=== PATIENT | female | born 1955 | race Caucasian/White ===

== ENCOUNTER 2019-05-14 15:43 | Inpatient (IN) | payer MEDICAID ==
[2019-05-14] VITALS (9 sets, daily range): BP systolic 140–172; BP diastolic 61–70
[~2019-05-14] VITALS: Ht 162.6 cm; Wt 220.0 kg
--- NOTE | ~2019-05-14 | HEMODYNAMI ---
PATIENT:TROY HAYWOOD MEDICAL RECORD: [id number] : 57 LOCATION:[facility] ADMISSION DATE: 05/14/19 Generatedon:05/18/201912:19 Patient name: TROY HAYWOOD Patient #: [id number] SSN: [id number] : 1955 Date of study: 05/18/2019 Page: Of Hemodynamic Procedure Report Patient Data Patient Demographics Procedure consent was obtained First Name: TROY Gender: Female Last Name: CHASTITY : 1955 Patient #: [id number] Age: 64 year(s) Race: SSN: [id number] Additional ID: [id number] Contact details [address]: [address] [place] [address] State: [place] City: [place] Zip code: [address] Past Medical History Allergies Allergen Reaction Date Comments Reported Other 05/18/2019 CODEINE,TRAMADOL,KETOROLAC(FROM allergy tORDOL)/ERTAPENEM Admission Admission Data Admission Date: 05/14/2019 Admission Time: 16:22 Arrival Date: 05/18/2019 Arrival Time: 0:00 Admit Source: Other Insurance Payor: Medicaid Room #: D.CV06 [facility] #: [id number] Height (in.): 64.17 BSA: 2.74 (m2) Height (cm.): 163 BMI: 74.9 (kg/m2) Weight (lbs.): 438.72 Weight (kg.): 199 Lab Results Lab Result Date: 05/18/2019 Lab Result Time: 0:00 Biochemistry Name Units Result Min Max BUN mg/dl 71 --(----)-* 7 18 Creatinine mg/dl 2.1 --(----)-* 0.6 1.3 eGFR ml/min 25 *-(----)-- 90 120 NONAFRICAN Troponin l ng/ml 0.62 --(----)-* 0 0.06 CBC Name Units Result Min Max Hemoglobin g/dl 7.7 *-(----)-- 13.5 17.5 Procedure Procedure Types Cath Procedure Diagnostic Procedure [facility] w/Coronaries PCI Procedure Coronary Stent Coronary Stent Initial x2 Procedure Description Procedure Date Procedure Date: 05/18/2019 Procedure Start Time: 11:00 Procedure End Time: 12:17 Procedure Staff Name Function Vargas Christie MD Performing Physician Vanessa Sanchez RT Monitor Danica Ledesma RT Monitor Unique Meadows RN Nurse Madeline Parrish RT Scrub Indication NSTEMI Procedure Data Cath Procedure Fluoroscopy Diagnostic fluoroscopy Total fluoroscopy Time: 9 time: 9 min min Diagnostic fluoroscopy Total fluoroscopy dose: dose: 1677 mGy 1677 mGy Contrast Material Contrast Material Type Amount (ml) Isovue 300 118 Entry Location Entry Primary Successful Side Size Upsize Upsize Entry Closure Succes sful Closure Location (Fr) 1 (Fr) 2 (Fr) Remarks Device Remarks Brachial Right 5 Fr Exoseal artery Estimated blood loss: 10 ml Diagnostic catheters Device Type Used For End Catheter Placement MULTIPACK Pigtail 5 Fr LV Angiography catheter DIAGNOSTIC [place] 4.5 5Fr Procedure catheter ([id number]) Procedure Complications No complications Procedure Medications Medication Administration Route Dosage 0.9% NaCl I.V. Oxygen 40 Diprivan 1% I.V. 40 mcg/kg/min (Propofol) Lidocaine 2% added to field 20 Heparin Flush Bag added to field 2 bags (1000units/500ml NS) Heparin Bolus I.V. 7000 units Hemodynamics Rest BSA: 2.74 (m2) HGB: 7.7 (g/dl) O2 Consumption: Estimated: 244.77 (ml/min) O2 Con sumption indexed: Estimated:89.33 (ml/min/m) Heart Rate: 58 (bpm) Snapshots Pre Cath Intra NCS Post Cath Vital Signs Time Heart Resp SPO2 etCO2 NIBP (mmHg) Rhythm Pain Sedation Rate (ipm) (%) (mmHg) Status Level (bpm) 10:49:54 55 16 99 0 133/74(116) SB 0 (11) 5(A) , No pain 10:54:12 51 16 100 0 134/74(102) SB 0 (11) 5(A) , No pain 10:58:30 50 16 100 0 129/73(105) SB 0 (11) 5(A) , No pain 11:03:21 56 16 100 0 132/80(91) SB 0 (11) 5(A) , No pain 11:07:37 47 16 100 0 139/76(117) SB 0 (11) 5(A) , No pain 11:11:53 47 16 100 0 128/74(103) SB 0 (11) 5(A) , No pain 11:16:52 46 16 100 0 Measuring SB 0 (11) 5(A) , No pain 11:17:06 46 16 100 0 120/71(98) SB 0 (11) 5(A) , No pain 11:21:22 45 16 100 0 130/62(83) SB 0 (11) 5(A) , No pain 11:25:38 45 16 100 0 125/71(94) SB 0 (11) 5(A) , No pain 11:29:48 44 16 100 0 115/87(103) SB 0 (11) 5(A) , No pain 11:34:48 53 19 100 0 Measuring SB 0 (11) 5(A) , No pain 11:35:00 51 13 100 0 132/71(104) SB 0 (11) 5(A) , No pain 11:39:20 55 16 100 0 133/74(90) SB 0 (11) 5(A) , No pain 11:43:36 55 16 100 0 137/81(103) SB 0 (11) 5(A) , No pain 11:47:56 52 19 100 0 139/72(109) SB 0 (11) 5(A) , No pain 11:52:16 53 18 100 0 139/73(110) SB 0 (11) 5(A) , No pain 11:56:34 56 15 100 0 136/79(107) SB 0 (11) 5(A) , No pain 12:00:52 57 16 100 0 142/73(113) SB 0 (11) 5(A) , No pain 12:05:13 58 16 100 0 141/73(116) SB 0 (11) 5(A) , No pain 12:09:30 58 16 100 0 141/80(120) SB 0 (11) 5(A) , No pain 12:13:53 57 16 100 0 142/70(96) SB 0 (11) 5(A) , No pain Medications Time Medication Route Dose Verified Delivered Reason Notes Effectiveness by by 10:54:34 0.9% NaCl I.V. kvo Vargas Calhoun used for Pratik Meadows consumer banker 10:55:20 Diprivan 1% I.V. 40mcg/kg/min Vargas Unique for sedation infusing (Propofol) Pratik Meadows upon RN arrival 10:55:20 Oxygen vent 40% FiO2 Vargas Unique used for Pratik Meadows consumer banker 11:00:12 Lidocaine 2% added 20ml vial Vargas Kaye for local to Pratik Christie MD anesthetic field 11:00:20 Heparin Flush added 2 bags Vargas Kaye used for Bag to Pratik Christie MD procedure (1000units/500ml field NS) 11:54:07 Heparin Bolus I.V. 7000 units Vargas Powella for verified Pratik Meadows anticoagulation with Dr. ALINA Christie Procedure Log Time Note 10:01:48 Informed consent obtained and on chart 10:02:05 Admit Source: Other 10:02:22 Diagnostic Cath Status : Urgent 10:03:07 ACC Patient presents with Non-STEMI CCS Anginal Class 4--Inability to carry out any physical activity w/o angina. Angina may occur at rest. 10:03:14 ACCPatient has been prescribed/administered the following anti-anginal medication within the last 2 weeks: None 10:03:27 Indication : NSTEMI 10:03:46 Procedure Status Urgent Heart Cath (IP). 10:03:49 Vanessa Sanchez RT(R) sent for patient. Start room use. 10:03:52 Time tracking: Regular hours (M-F 7:00 - 5:00) 10:04:05 Plan of Care:Hemodynamics will remain stable., Cardiac rhythm will remain stable., Comfort level will be maintained., Respiratory function will remain adequate., Patient/ family verbilizes understanding of procedure., Procedure tolerated without complication., Recovers from procedure without complications.. 10:13:48 Lab Result : eGFR NONAFRICAN 25 ml/min 10::48 Lab Result : Troponin l 0.62 ng/ml 10::48 Lab Result : Creatinine 2.1 mg/dl 10::48 Lab Result : BUN 71 mg/dl 10:13:48 Lab Result : Hemoglobin 7.7 g/dl 10:14:12 Arrival Date: 05/18/2019 12:00:00 AM 10:14:31 Insurance Payor : Medicaid 10:14:37 Patient Height : 64.17 inches 10:14:43 Patient Weight : 438.72 lbs 10:18:20 Risk of Mortality: 2.4 10:18:27 Risk of blood transfusion: 57.7 10:18:32 Risk of HILARY: 26.6 10:21:42 Patient received from CVICU to CCL 1 On ventilator. Tansferred to table in Supine position. 10:32:47 Pre-procedure instructions explained to patient. 10:32:47 Pre-op teaching completed and patient verbalized understanding. 10:32:53 Family unavailable. 10:32:54 Patient NPO since Midnight. 10:33:00 Is patient on blood thinner?Yes 10:33:03 ACC The patient was administered the following blood thiners within the last 24 hours: ACCPlavix 10:33:17 PRIOR TO PREPPING AND DRAPING RIGHT GROIN AREA, PATIENT HAS MULTIPLE SKIN TEARS. 10:33:33 due to patient on vent... answers are unknown 10:33:36 Patient diabetic? Unknown. 10:33:40 Patient not . Patient is over age 55. 10:33:47 Snore? Unknown 10:33:48 Sleep apnea? Unknown 10:33:49 Deviated septum? Unknown 10:33:50 Opens mouth fully? Unknown 10:33:52 Sticks out tongue? Unknown 10:33:55 Airway obstruction? Unknown ? 10:33:57 Dentures? No ? 10:34:04 Pre procedure: right dorsailis pedis pulse Doppler 10:34:18 IV patent on arrival in Rt subclavian with 0.9% NaCl at KVO. 10:34:22 Lab results completed and on chart. 10:34:26 Right groin area was prepped with chlora-prep and draped in sterile fashion 10:34:27 Alarms reviewed by R. N. 10:34:27 Sharps counted by scrub and verified by R.N. 10:35:24 Patient allergic to Other allergyCODEINE,TRAMADOL,KETOROLAC(FROM tORDOL)/ERTAPENEM 10:35:29 Warm blankets applied, and rachel hugger turned on for patient comfort. 10:35:31 Correct patient and procedure confirmed by team. 10:35:44 Is the patient allergic to Iodine/contrast media? Unknown. 10:35:47 Was the patient premedicated? Yes 10:36:05 ----Pre-sedation anethsthesia assessment.---- 10:36:17 Previous problem with sedation/anesthesia? Unknown DUE TO PT ON VENT 10:37:06 Use device set Femoral Dx 10:37:08 ACIST Syringe (06402) opened to sterile field. 10:37:09 Bag Decanter (2002S) opened to sterile field. 10:37:10 Medline Cath Pack ([id number]) opened to sterile field. 10:37:12 ACIST Hand Control (24197) opened to sterile field. 10:37:12 ACIST Manifold (12985) opened to sterile field. 10:37:13 DIAGNOSTIC Multipack 5Fr catheter set (WQ5874) opened to sterile field. 10:37:14 Tegaderm 4 x 4 (1626W) opened to sterile field. 10:37:16 SHEATH 5FR [place] (YYY980) opened to sterile field. 10:37:17 EMERALD Guide Wire (963-857) opened to sterile field. 10:48:40 ECG and BP/O2 sat monitors applied to patient. 10:48:41 Vital chart was started 10:48:42 Baseline sample Acquired. 10:48:49 Rhythm: sinus rhythm 10:48:52 Full Disclosure recording started 10:48:52 - 10:49:00 H&P Date Dictated: 05/18/2019 Within 30 days and on chart.. 10:49:15 Unable to provide pre-op teaching due to educational barrier. PT ON [place] T 10:49:47 Physician arrived 10:50:11 --------ALL STOP TIME OUT------ 10:50:13 Final Timeout: patient, procedure, and site verified with staff and physician. All members of the team are in agreement. 10:50:16 Right groin site verified by team. 10:50:24 Fire Safety Assessment: A--An alcohol-based skin anteseptic being used preoperatively., C--Open oxygen or nitrous oxide is being used., D--An ESU, laser, or fiber-optic light is being used. 10:52:24 Physical assessment completed. ASA score P 4 - A patient with severe systemic disease that is a constant threat to life as per Vargas Christie MD. 10:52:32 4) 15-29 [place]ley reduced kidney function. 10:52:40 Maximum allowable contrast dose (3.7 X eGFR X 0.75)69 ml. 10:52:50 Sedation plan: IV Moderate Sedation Medication:Versed, Fentanyl 10:54:03 Zero performed for pressure channel P1 10:54:34 0.9% NaCl kvo I.V. was administered by Unique Meadows RN; used for procedure; Verbal order read back and verified. 10:55:20 Oxygen 40% FiO2 vent was administered by Unique Meadows RN; used for procedure; Verbal order read back and verified. 10:55:20 Diprivan 1% (Propofol) 40mcg/kg/min I.V. was administered by Unique Meadows RN; for sedation; infusing upon arrival Verbal order read back and verified. 11:00:08 Procedure started. 11:00:12 Lidocaine 2% 20ml vial added to field was administered by Vargas Christie MD; for local anesthetic; Verbal order read back and verified. 11:00:20 Heparin Flush Bag (1000units/500ml NS) 2 bags added to field was administered by Vargas Christie MD; used for procedure; Verbal order read back and verified. 11:00:25 Local anesthetic to right femoral artery with Lidocaine 2% by Vargas Christie MD.INITIAL ACCESS ONLY 11:00:54 NEEDLE Merit 18G 9cm Percutaneous Entry ([id number]) opened to sterile field. 11:03:42 Pt arrived to CL intubated and sedated. Pt sedated w/ Propofol drip 40mcg/kg/min and vent @ 40% FiO2. skin tear noted on left FA and groin area. CVL drsg saturated w/blood and oozing. Drsg changed by CL nurse per hospital policy. All VSS and no s/s distress noted. Will continue to monitor. 11:08:38 UNABLE TO CANULATE THE RIGHT FEMERAL ARTERY. 11:09:07 Right Brachial site verified by team. 11:09:27 Right Brachial area was prepped with chlora-prep and draped in sterile fashion 11:30:51 Local anesthetic to right brachial artery with Lidocaine 2% by Vargas Christie MD.ADDITIONAL ACCESS 11:43:50 A 5 Fr sheath was inserted into the Right Brachial artery 11:44:01 A MULTIPACK Pigtail 5 Fr catheter was advanced over the wire and used for LV Angiography. 11:45:40 LV gram done using MURO 11:46:32 EF : 50 % 11:46:37 Injector settings: Ml/sec: 10, Volume: 20, 11:46:42 Catheter exchanged over wire. 11:47:06 TUBING High Pressure Extension Tubing (Grouply) ([id number]) opened to sterile field. 11:47:49 A DIAGNOSTIC [place] 4.5 5Fr catheter ([id number]) was advanced over the wire and used for Procedure. 11:48:29 LCA angiography performed. 11:49:40 INFLATOR Merit BasixCompak (CT4305) opened to sterile field. 11:50:01 RCA angiography performed. 11:50:20 CHOICE PT Extra Support 182cm wire ([id number]) opened to sterile field. 11:50:36 Catheter exchanged over wire. 11:52:13 GUIDE 5FR EBU 3.5 catheter ([id number]) opened to sterile field. 11:52:32 GUIDE 5FR AR2.0 catheter (QP5VG27) opened to sterile field. 11:53:06 5 Fr EBU3.5 guide catheter was inserted over the wire 11:53:48 Pre PCI Site: [place] mLAD has 90% stenosis. 11:54:07 Heparin Bolus 7000 units I.V. was administered by Unique Meadows RN; for anticoagulation; verified with Dr. Christie Verbal order read back and verified. 11:55:14 The WILLY RX 2.5 x 18 stent ([id number]) was advanced then removed because of failure to cross lesion 11:56:16 Inflate balloon Inflation number: 1 A EUPHORA 2.5 x 15 Balloon ([id number]) was prepped and advanced across the Mid LAD , then inflated to 15 [place] for 0:10 (min:sec) . 11:56:42 Inflation number: 2 The EUPHORA 2.5 x 15 Balloon ([id number]) was reinflated across the Mid LAD , to 15 [place] for 0:00 (min:sec) . 11:56:56 Balloon removed over the wire. 11:58:28 Place stent Inflation Number: 3 A WILLY RX 2.5 x 18 stent ([id number]) was prepped and advanced across the Mid LAD . The stent was deployed at 15 [place]ALL[place] for 0:10 (min:sec) . 11:58:35 Stent catheter was removed intact over wire. 11:59:13 Wire removed. 11:59:14 Guide catheter removed. 11:59:43 5 Fr AR2 guide catheter was inserted over the wire 12:00:06 CHOICE PT wire advanced. 12:00:56 Pre PCI Site: [place] mRCA has 90% stenosis. 12:03:39 Wire advanced across lesion. 12:05:02 Inflation number: 1 The EUPHORA 2.5 x 15 Balloon ([id number]) was reinflated across the Mid RCA , to 13 [place] for 0:10 (min:sec) . 12:05:19 Balloon removed over the wire. 12:06:32 Place stent Inflation Number: 2 A WILLY RX 2.5 x 15 stent ([id number]) was prepped and advanced across the Mid RCA . The stent was deployed at 17 [place] for 0:10 (min:sec) . 12:06:49 Stent catheter was removed intact over wire. 12:06:50 Wire removed. 12:06:52 Guide catheter removed. 12:07:04 ACT drawn and resulted at 201 seconds. (normal therapeutic range 180-24 0 seconds). 12:07:07 EXOSEAL 5Fr (EX500) opened to sterile field. 12:07:35 Sheath removed intact; hemostasis achieved with Exoseal to the Right Brachial artery. 12:07:45 Procedure ended.(Physican Out) 12:09:08 Fluoroscopy time 09.00 minutes. 12:09:16 Fluoroscopy dose: 1677 mGy 12:09:56 Contrast amount:Isovue 300 118ml. 12:10:17 Dose Area Product 28554 mGy/cm. 12:10:56 Flurop Dose total: 1677 12:11:14 Maximum allowable dose exceeded? Yes. 12:11:16 Sharps counted by scrub and verified by R.N. 12:11:20 Insertion/operative site no bleeding no hematoma. 12:11:43 Post-op/insertion site Right Brachial artery dressed using a 4 x 4 and Tegaderm. 12:12:14 Post right brachial artery:stable 12:12:21 Post Procedure Pulses reassessed and unchanged 12:12:29 Post-procedure physical assessment completed. ASA score P 4 - A patient with severe systemic disease that is a constant threat to life as per Vargas Christie MD. 12:12:36 Post procedure rhythm: unchanged. 12:12:41 Estimated blood loss: 10 ml 12:12:45 Post procedure instruction explained to patient.Patient verbalizes understanding. 12:12:47 Patient needs reinforcement of post procedure teaching. 12:13:41 Procedure type changed to Cath procedure, Diagnostic procedure, C, C w/Coronaries, PCI procedure, Coronary Stent, Coronary Stent Initial x2 12:13:56 Procedure and supply charges have been captured, reviewed, submitted an d are correct. 12:16:50 Procedure Complication : No complications 12:16:56 Vital chart was stopped 12:17:00 [facility] Findings: MVD- PCI performed (see procedure note) 12:17:03 Operative report dictated upon procedure completion. 12:17:03 See physician's report for complete and final results. 12:17:07 Report given to CVICU. 12:17:11 Patient transfered to CVICU with Bed. 12:17:15 Procedure ended. 12:17:15 Full Disclosure recording stopped 12:17:26 ACC-PCI Only Patient was given prescriptions, or instructed by Vargas Christie MD to start/continue the following medications upon discharge: Plavix 12:17:27 End room use (Document Last) Intervention Summary Intervention Notes Time ActionType Lesion and Equipment Used Action# Pressure Duration Attributes 11:55:14 Discard WILLY RX 2.5 x Stent 18 stent ([id number]) 11:56:16 Inflate Mid LAD EUPHORA 2.5 x 1 15 00:10 balloon 15 Balloon ([id number]) 11:56:42 Reinflate Mid LAD EUPHORA 2.5 x 2 15 00:00 balloon 15 Balloon ([id number]) 11:58:28 Place stent Mid LAD WILLY RX 2.5 x 3 15 00:10 18 stent ([id number]) 12:05:02 Reinflate Mid RCA EUPHORA 2.5 x 1 13 00:10 balloon 15 Balloon ([id number]) 12:06:32 Place stent Mid RCA WILLY RX 2.5 x 2 17 00:10 15 stent ([id number]) Device Usage Item Name Manufacture Quantity Catalog Number Hospital Part Current M inimal Lot# / Charge Number Stock Stock Serial# Code ACIST Syringe Acist 1 22614 785144 360220 332922 2 0 (03535) Medical Systems Inc Bag Decanter Microtek 1 656910 89982 165473 5 () Medical Inc. Medline Cath Medline 1 [id number] 072727 52496 888230 5 Pack ([id number]) ACIST Hand Acist 1 90567 857932 814705 292972 5 Control Medical (92132) Systems Inc ACIST Manifold Acist 1 85408 027079 046571 701236 5 (65247) Medical Systems Inc DIAGNOSTIC Cardinal 1 SY4962 856437 81173 931850 3 0 Multipack 5Fr Health catheter set (KK0563) Tegaderm 4 x 4 3M 1 1626W 871326 098160 883998 5 (1626W) SHEATH 5FR Terumo 1 USX889 138248 241931 769350 5 [place] (EZT823) EMERALD Guide Cardinal 1 502-455 563246 883712 677578 5 Wire (502-455) Health NEEDLE Merit Merit 1 [id number] 810677 193879 656523 5 18G 9cm Medical Percutaneous Entry ([id number]) MULTIPACK Cardinal 1 473905 5 Pigtail 5 Fr Health catheter TUBING High Merit 1 [id number] 719326 40077 157606 1 0 Pressure Medical Extension Tubing (Monet) (XR4158I) DIAGNOSTIC Terumo 1 40-0352 199223 405849 540619 5 [place] 4.5 5Fr catheter (896296) INFLATOR Merit Merit 1 GU3053 279290 794636 897884 1 5 [place] (ER6483) CHOICE PT [place] 1 [id number] 019101 064658 184748 5 Extra Support Scientific 182cm wire ([id number]) GUIDE 5FR EBU Medtronic 1 [id number] 540818 050143 655041 1 3.5 catheter (HN3TPM35) GUIDE 5FR Medtronic 1 HE3PL88 983163 530921 356207 1 AR2.0 catheter (QV9CT08) WILLY RX 2.5 x Medtronic 1 [id number] 385120 9576375 734581 5 [id number] 18 stent ([id number]) EUPHORA 2.5 x Medtronic 1 [id number] 642704 984539 411901 5 [id number] 15 Balloon ([id number]) WILLY RX 2.5 x Medtronic 1 [id number] 114271 3872504 977042 5 [id number] 15 stent ([id number]) EXOSEAL 5Fr Cardinal 1 EX500 415938 853168 048238 1 0 (EX500) Health Signature Audit [place] Stage Time Signature Unsigned Intra-Procedure 05/18/2019 Danica 12:18:01 PM Baltazar RT(R) (CV) Intra-Procedure 05/18/2019 Unique Meadows 12:18:32 PM RN Intra-Procedure 05/18/2019 Vargas Christie 12:19:36 PM [facility] [address] [place] [address]
[2019-05-14 18:01] LABS: CKMB 15.9 U/L (0.0-3.6); CREATINE KINASE 248 UL (21-215)
[2019-05-14 18:05] LABS: TROPONIN-I 2.693 ng/mL (0.000-0.060)
--- NOTE | 2019-05-14 19:00 | NUR ---
REPORT RECEIVED. RECIEVED PATIENT IN BED SEDATED/ INTUBATED. ETT INTACT/ SECURE/PATENT CONNECTED TO MECHANICAL VENT WITH SETTINGS ORDERED. NGT INTACT/SECURE/PATENT WITH TUBE FEEDINGS INFUSING PER ORDER. HOB UP 30 DEGREES. ASSESSMENT COMPLETED PER FLOW SHEET WITH NO ACUTE DISTRESS OBSERVED. MONITORS CONNECTED TO PATIENT WITH ALARMS SET. VSS
--- NOTE | 2019-05-14 20:00 | NUR ---
UNABLE TO COMPLETED SRS DUE TO PATIENT SEDATED/INTUBATED.
--- NOTE | 2019-05-14 20:00 | NUR ---
RECEIVED PATIENT TO ROOM CV06 FROM ED VIA STRETCHER ACCOMPANIED BY HOSP STAFF. SEDATED/INTUBATED. ETT INTACT/SECURE PATENT AND CONNECTED TO [facility] VENT AT ORDERED SETTINGS. HOB UP 30DEGREES. ASSESSMENT COMPLETED AT THIS TIME WITH NO ACUTE DISTRESS OBSERVED. MONITORS CONNECTED TO PATIENT WITH ALARMS SET. VSS.
--- NOTE | 2019-05-14 20:20 | NUR ---
SPOKE WITH DR. MILLER, UPDATED ON PATIENT NEW ORDERS RECEIVED.
--- NOTE | 2019-05-14 21:00 | NUR ---
FAMILY AT BEDSIDE, UPDATE GIVEN.
--- NOTE | 2019-05-14 21:40 | NUR ---
SPOKE WITH DR. ARROYO. NEW ORDERS RECEIVED
--- NOTE | 2019-05-14 23:00 | NUR ---
REASSESSSMENT COMPLETED PER FLOW SHEET WITH NO ACUTE DISTRESS OBSERVED. VSS
[2019-05-15] VITALS (23 sets, daily range): BP systolic 126–169; BP diastolic 58–96; Ht 162.6 cm; Wt 220.0 kg
[2019-05-15 00:41] LABS: CREATINE KINASE 198 UL (21-215)
[2019-05-15 00:48] LABS: TROPONIN-I 2.663 ng/mL (0.000-0.060)
--- NOTE | 2019-05-15 01:00 | NUR ---
VSS. NO ACUTE DISTRESS OBSERVED
--- NOTE | 2019-05-15 03:00 | NUR ---
REASSESSMENT COMPLETED PER FLOW SHEET WITH NO ACUTE DISTRESS OBSERVED. VSS
--- NOTE | 2019-05-15 05:00 | NUR ---
GRANDDAUGHTER SEVEN AT BEDSIDE, UPDATE GIVE. VSS
[2019-05-15 05:01] LABS: APPEARANCE CLOUDY (CLEAR); BACTERIA MODERATE /hpf (NEGATIVE); BILIRUBIN NEGATIVE (NEGATIVE); COLOR YELLOW (YELLOW); EPITHELIAL CELLS NSEEN /hpf (0-5); GLUCOSE NEGATIVE (NEGATIVE); KETONE NEGATIVE (NEGATIVE); NITRITE NEGATIVE (NEGATIVE); PROTEIN 1+ mg/dL (NEGATIVE); UROBILINOGEN NORMAL (NORMAL); WHITE CELLS - URINE 25-50 /hpf (NEGATIVE)
[2019-05-15 05:52] LABS: BASOPHILS 0.1 % (0-2); EOSINOPHILS 0 % (0-7); HEMATOCRIT 34.2 % (36.0-48.0); HEMOGLOBIN 9.9 g/dL (12-16); IMMATURE GRANULOCYTES 0.7 % (0-5); LYMPHOCYTES 9.4 % (15-50); MCH 24.3 pg (26.0-34.0); MCHC 28.9 g/dL (31.0-37.0); MEAN PLATELET VOLUME 10.1 fL (7.4-10.4); MONOCYTES 3.7 % (2-11); NEUTROPHILS 86.1 % (40-80); PLATELET COUNT 246 10x3/uL (130-400); RBC 4.07 10x6/uL (4.00-5.40); RDW 17.6 % (11.5-14.5); WBC 8.3 10x3/uL (4.8-10.8)
[2019-05-15 06:10] LABS: APTT 62.1 SECONDS (22.8-39.4); INR 2.17 (0.85-1.17); PROTIME 23.5 SECONDS (11.6-15.0)
[2019-05-15 06:28] LABS: ALBUMIN 3.1 g/dL (3.4-5.0); ALKALINE PHOSPHATASE 106 U/L (46-116); ALT (SGPT) 11 U/L (10-68); BILIRUBIN - TOTAL 0.37 mg/dL (0.2-1.3); CALC OSMOLALITY 283 mosm/kg (275-300); CHLORIDE - SERUM 105 mmol/L (98-107); CKMB 14.1 U/L (0.0-3.6); CREATINE KINASE 173 UL (21-215); CREATININE - SERUM 2.2 mg/dL (0.6-1.3); GLUCOSE 111 mg/dL (74-106); MAGNESIUM - SERUM 2.1 mg/dL (1.8-2.4); PHOSPHOROUS 4.7 mg/dL (2.5-4.9); POTASSIUM - SERUM 5.5 mmol/L (3.5-5.1); PRO BNP 6905 pg/mL (0-125); PROTEIN - SERUM 7.3 g/dL (6.4-8.2); SODIUM 138 mmol/L (136-145); THYROID STIMULATING HORMONE 0.45 uIU/mL (0.36-3.74); UREA NITROGEN 33 mg/dL (7-18); eGFR NON AFRICAN AMERICAN 24 mL/min (90-120)
[2019-05-15 06:34] LABS: TROPONIN-I 2.949 ng/mL (0.000-0.060)
--- NOTE | 2019-05-15 07:00 | NUR ---
SHIFT ASSESSMENT COMPLETED, PT CARE ASSUMED, MONITORS ON AND WORKING, VITALS STABLE. PT SEDATED ON VENTILATOR, VENT SETTINGS NOTED. SEE FLOW SHEET FOR FURTHER DETAILS. WILL CONTINUE TO OBSERVE.
--- NOTE | 2019-05-15 09:00 | NUR ---
PT TURNED AND REPOSITIONED FOR COMFORT, MONITORS ON AND WORKING, VITALS STABLE, WILL CONTINUE TO OBSERVE.
--- NOTE | 2019-05-15 11:00 | NUR ---
MONITORS ON AND WORKING, VITALS STABLE. ETT ADVANCED TO 24CM VIA RT AND MD, VENT SETTINGS NOTED. NO SIGNGS/SYMPTOMS OF PAIN OR DISTRESS AT THIS TIME, SEE FLOW SHEET FOR FURTHER DETIALS. WILL CONTINUE TO OBSERVE.
[2019-05-15 11:48] LABS: CKMB 10.4 U/L (0.0-3.6); CREATINE KINASE 131 UL (21-215)
--- NOTE | 2019-05-15 13:00 | NUR ---
ORAL CARE DONE AT THIS TIME, SPOKE WITH FAMILY MEMBER, UPDATE PROVIDED, MONITORS ON AND WORKING, VITALS STABLE. WILL CONTINUE TO OBSERVE.
[2019-05-15 13:55] LABS: ANION GAP 17.3 mmol/L (8-16); CALCIUM 9.1 mg/dL (8.5-10.1); CARBON DIOXIDE 19.1 mmol/L (21.0-32.0); CREATININE - SERUM 2.2 mg/dL (0.6-1.3); POTASSIUM - SERUM 5.4 mmol/L (3.5-5.1)
--- NOTE | 2019-05-15 15:00 | NUR ---
PULMOCARE TF STARTED. MONITORS ON AND WORKING, VITALS STABLE, SEE FLOW SHEET FOR FURTHER DETAILS. WILL CONTINUE TO OBSERVE.
--- NOTE | 2019-05-15 17:00 | NUR ---
NO CHANGES, PT TOLERATING TF SO FAR, MONITORS ON AND WORKING VITALS STABLE, WILL CONTINUE TO OBSERVE.
--- NOTE | 2019-05-15 19:00 | NUR ---
SHIFT ASSESSMENT COMPLETED FOR 05/15/19 @1900 ENTERED UNDER WRONG DATE (05/14/19)
--- NOTE | 2019-05-15 21:00 | NUR ---
RESTING WITH EYES CLOSED, SEDATED. OPENS EYES TO VERBAL STIMULI. FAMILY AT BEDSIDE. UPDATE GIVEN.
--- NOTE | 2019-05-15 22:35 | NUR ---
SPOKE WITH PATIENTS DAUGHTER CHEPE SUN. UPDATED ON PATIENT. VERBAL CONSENT OBTAINED VIA PHONE X 2 RNS FOR LHC AND BLOOD PRODUCTS
--- NOTE | 2019-05-15 23:00 | NUR ---
RESTING WITH EYES CLOSED/ SEDATED. ROUSES TO VERBAL STIMULI. VSS
[2019-05-16] VITALS (22 sets, daily range): BP systolic 103–155; BP diastolic 45–75
--- NOTE | 2019-05-16 03:00 | NUR ---
PATIENT RESTING WITH EYES CLOSED, SEDATED. OPENS EYES TO VERBAL STIMULI. VSS
--- NOTE | 2019-05-16 05:00 | NUR ---
ATTEMPTED SEDATION VACATION. PATIENT ALERT/BITING TUBE/COUGHTING. SEDATION RESTARTED AT PREVIOUS RATE. PATIENT CALMED. VSS.
[2019-05-16 06:19] LABS: INR 1.77 (0.85-1.17)
[2019-05-16 06:26] LABS: HEMATOCRIT 29.9 % (36.0-48.0); HEMOGLOBIN 8.9 g/dL (12-16); MCH 24.1 pg (26.0-34.0); MCHC 29.8 g/dL (31.0-37.0); MEAN PLATELET VOLUME 10.6 fL (7.4-10.4); PLATELET COUNT 269 10x3/uL (130-400); RBC 3.69 10x6/uL (4.00-5.40); RDW 17.6 % (11.5-14.5); WBC 6.6 10x3/uL (4.8-10.8)
[2019-05-16 06:30] LABS: ALBUMIN 2.7 g/dL (3.4-5.0); ANION GAP 13.3 mmol/L (8-16); BILIRUBIN - TOTAL 0.36 mg/dL (0.2-1.3); CALCIUM 8.8 mg/dL (8.5-10.1); CARBON DIOXIDE 23.8 mmol/L (21.0-32.0); CREATININE - SERUM 2.3 mg/dL (0.6-1.3); MAGNESIUM - SERUM 2.3 mg/dL (1.8-2.4); PHOSPHOROUS 4.2 mg/dL (2.5-4.9); POTASSIUM - SERUM 5.1 mmol/L (3.5-5.1); PROTEIN - SERUM 6.7 g/dL (6.4-8.2)
--- NOTE | 2019-05-16 07:10 | NUR ---
SHIFT REPORT RECEIVED. PT INTUBATED AND SEDATED. ETT SIZE 7.5 24 AT THE LIP LINE RIGHT. PIV ON R-HAND AND LEFT CHEST. PROPOFOL INFUSING AT 35MCG/KG/MIN, AND NS AT 30ML/HR. NGT TO RIGHT NARE WITH PULMOCARE AT 45CC/HR WITH 125ML H2O FLUSH Q 4HR. BALLARD IN PLACE WITH CLOUDY YELLOW URINE NOTED. DRESSING NOTED ON RIGHT FOREARM. WRIST RESTRAINTS IN PLACE. COMPLETE SHIFT ASSESSMENT CHARTED IN FLOWSHEET. SAFETY MEASURES IN PLACE. WILL CONTINUE TO MONITOR.
[2019-05-16 08:20] LABS: HYPOCHROMASIA 1+; LYMPHOCYTES 6 % (15-50); MONOCYTES 3 % (2-11); NEUTROPHILS 91 % (40-80); PLATELET ESTIMATE NORMAL
[2019-05-16 08:21] LABS: MICROCYTOSIS 1+
--- NOTE | 2019-05-16 09:07 | NUR ---
AM MEDS GIVEN THROUGH NGT. REPOSITIONED FOR COMFORT. WILL CONTINUE TO MONITOR.
[2019-05-16] MEDS ORDERED: PACERONE200 MG PO (09:16)
[2019-05-16] MEDS ORDERED: COUMADIN7.5 MG PO (09:17)
[2019-05-16] MEDS ORDERED: AUGMENTIN 875-11 TAB PO (09:17)
[2019-05-16] MEDS ORDERED: NEURONTIN 300300 MG PO (09:20)
[2019-05-16] MEDS ORDERED: LASIX40 MG PO (09:21)
[2019-05-16] MEDS ORDERED: MELATONIN5 M3 PO (09:22)
[2019-05-16] MEDS ORDERED: ROBAXIN500 MG PO (09:25)
[2019-05-16] MEDS ORDERED: RELAFEN750 MG PO (09:25)
[2019-05-16] MEDS ORDERED: NAPROSYN500 MG PO (09:26)
[2019-05-16] MEDS ORDERED: PROCARDIA XL30 MG PO (09:28)
[2019-05-16] MEDS ORDERED: HYDROCODON-ACE1 EAC7 PO (09:29)
[2019-05-16] MEDS ORDERED: OMEPRAZOLE40 MG PO (09:29)
[2019-05-16] MEDS ORDERED: ALBUTEROL2.5 MG/3 M INH (09:31)
[2019-05-16] MEDS ORDERED: ALTACE10 MG PO (09:32)
[2019-05-16] MEDS ORDERED: ZOCOR40 MG PO (09:33)
[2019-05-16] MEDS ORDERED: SYMBICORT 16010.2 GM INH (09:35)
--- NOTE | 2019-05-16 09:56 | NUR ---
Heel protectors applied to both feet.
--- NOTE | 2019-05-16 11:15 | NUR ---
CALL RECEIVED FROM CHEPE COTA PT'S DAUGHTER. [place] VIRIFIED "[address]." DR. PINEDA ON UNIT. DR. PINEDA SPOKE WITH DAUGHTER OVER THE PHONE.
--- NOTE | 2019-05-16 13:30 | NUR ---
DAUGHTERS AT BEDSIDE. UPDATE PROVIDED. NO FURTHER NEEDS AT THIS TIME. WILL CONTINUE TO MONITOR.
--- NOTE | 2019-05-16 13:47 | NUR ---
CONSENT FOR CENTRALINE PLACEMENT RECEIVED FROM CHEPE SUN VIA TELEPHONE. CONSENT FORM PLACED IN CHART.
--- NOTE | 2019-05-16 14:00 | NUR ---
DAUGHTERS AT BEDSIDE AT THIS TIME. INFORMED THEM THAT PT WAS GOING TO GET A CENTRAL LINE PLACED. UPDATE GIVEN. WILL CONTINUE TO MONITOR.
--- NOTE | 2019-05-16 14:57 | NUR ---
SPOKE WITH DR. HANNA REGARDING FLUIDS. SINCE PT WAS ALREADY ON 30ML/HR OF NS, SHE DECIDED NOT TO ADD MORE FLUID AT THIS TIME.
--- NOTE | 2019-05-16 17:04 | NUR ---
BLEEDING NOTED AT CVL SITE. PRESSURE APPLIED FOR TEN MINUTES. 4X4 GAUZE APPLIED TO AREA FOR PRESSURE. WILL CONTINUE TO MONITOR SITE.
--- NOTE | 2019-05-16 18:00 | NUR ---
SUBCUTANEOUS ENPHYSEMA HAS MOVED UP TO NECK AND LEFT SIDE OF FACE. PT REPORTS DISCOMFORT DUE BUT DOES NOT REPORT SOB AT THIS TIME. PT HAS BEEN COUGHING FREQUENTLY THIS AFTERNOON. NO SPUTUM NOTED. CT ON LEFT SIDE CONTINUE TO WATER SEAL. WILL CONTINUE TO MONITOR.
--- NOTE | 2019-05-16 19:00 | NUR ---
REPORT RECEIVED CARE ASSUMED. ASSESMENT DONE SEE FLOW SHEET. VSS. FRUIT HARVEST MACHINE OPERATOR NOTIFIED ABOUT BERIATRIC BED ORDER 05/15/19. WILL CONTINUE TO MONITOR.
--- NOTE | 2019-05-16 19:15 | NUR ---
CENTRAL LINE DRESSING REINFORCED. WILL CONTINUE TO MONITOR.
--- NOTE | 2019-05-16 21:00 | NUR ---
MEDS GIVEN PER MAR. COMPLETE BED BATH GIVEN. COMPLETE LINEN CHANGE. VSS WILL CONTINUE TO MONITOR.
--- NOTE | 2019-05-16 23:00 | NUR ---
REASSESSMENT DONE SEE FLOW SHEET VSS BERIATRIC BED IN PLACE
[2019-05-17] VITALS (39 sets, daily range): BP systolic 91–127; BP diastolic 39–506
--- NOTE | 2019-05-17 03:00 | NUR ---
0100 PT IN BED RESTING. SCD APPLIED. VSS. 0300 REASSESSMENT DONE SEE FLOW SHEET VSS
--- NOTE | 2019-05-17 05:00 | NUR ---
CENTRAL LINE DRESSING REINFORCED. 2XSAND BAGS IN PLACE. WILL CONTINUE TO MONITOR.
[2019-05-17 05:09] LABS: BASOPHILS 0 % (0-2); EOSINOPHILS 0 % (0-7); HEMATOCRIT 27.3 % (36.0-48.0); HEMOGLOBIN 8.2 g/dL (12-16); IMMATURE GRANULOCYTES 0.2 % (0-5); MCV 79.8 fL (80.0-100.0); MEAN PLATELET VOLUME 10.6 fL (7.4-10.4); MONOCYTES 4.9 % (2-11); NEUTROPHILS 89.9 % (40-80); PLATELET COUNT 268 10x3/uL (130-400); RBC 3.42 10x6/uL (4.00-5.40); RDW 17.7 % (11.5-14.5)
[2019-05-17 05:24] LABS: WBC 9.2 10x3/uL (4.8-10.8)
[2019-05-17 05:49] LABS: INR 1.32 (0.85-1.17); PROTIME 15.9 SECONDS (11.6-15.0)
[2019-05-17 05:59] LABS: ALBUMIN 2.5 g/dL (3.4-5.0); ANION GAP 13.5 mmol/L (8-16); BILIRUBIN - TOTAL 0.23 mg/dL (0.2-1.3); CALCIUM 8.4 mg/dL (8.5-10.1); CARBON DIOXIDE 24.6 mmol/L (21.0-32.0); CREATININE - SERUM 2.2 mg/dL (0.6-1.3); MAGNESIUM - SERUM 2.3 mg/dL (1.8-2.4); PHOSPHOROUS 4.4 mg/dL (2.5-4.9); POTASSIUM - SERUM 5.1 mmol/L (3.5-5.1)
--- NOTE | 2019-05-17 06:45 | NUR ---
DR CHAVEZ CALLED. FIBRILLIN APPLIED TO CENTRAL LINE. 4X4 IN PL[address]. SAND BAG APPLIED.
--- NOTE | 2019-05-17 07:56 | NUR ---
DR HANNA AT BEDSIDE. UPDATE GIVEN. ORDERS GIVEN.
[2019-05-17 08:48] LABS: TROPONIN-I 0.705 ng/mL (0.000-0.060)
--- NOTE | 2019-05-17 09:30 | NUR ---
FAMILY AT BEDSIDE. UPDATE GIVEN.
--- NOTE | 2019-05-17 11:09 | NUR ---
SEE ADL PERFORMED. REASSESSMENT COMPLETED. WILL CONTINUE TO MONITOR
[2019-05-17 13:50] LABS: BASOPHILS 0 % (0-2); EOSINOPHILS 0 % (0-7); HEMATOCRIT 26.7 % (36.0-48.0); HEMOGLOBIN 8.1 g/dL (12-16); IMMATURE GRANULOCYTES 0.3 % (0-5); LYMPHOCYTES 3.9 % (15-50); MCHC 30.3 g/dL (31.0-37.0); MEAN PLATELET VOLUME 10.5 fL (7.4-10.4); MONOCYTES 4.9 % (2-11); NEUTROPHILS 90.9 % (40-80); PLATELET COUNT 254 10x3/uL (130-400); RBC 3.38 10x6/uL (4.00-5.40); RDW 17.6 % (11.5-14.5); WBC 10.5 10x3/uL (4.8-10.8)
--- NOTE | 2019-05-17 13:53 | NUR ---
Nutrition Follow-up: Pt remains intubated. Receiving Pulmocare @ 50 mL/hr and Diprivan @ 41 mL/hr. Wt: 454.8# b(422.1# on 05/16) Labs noted: Glu 152 Meds noted: NS @ 30, Solumedrol, Diprivan -Continue current TF as tolerated. RD following.
[2019-05-17 14:10] LABS: ALBUMIN 2.5 g/dL (3.4-5.0); ANION GAP 14.7 mmol/L (8-16); BILIRUBIN - TOTAL 0.27 mg/dL (0.2-1.3); CALCIUM 7.9 mg/dL (8.5-10.1); CARBON DIOXIDE 23.8 mmol/L (21.0-32.0); CREATININE - SERUM 2.2 mg/dL (0.6-1.3); POTASSIUM - SERUM 5.5 mmol/L (3.5-5.1); PROTEIN - SERUM 5.6 g/dL (6.4-8.2)
--- NOTE | 2019-05-17 15:00 | NUR ---
tube feeding bag changed.
--- NOTE | 2019-05-17 17:55 | NUR ---
PATIENT IS SEDATED. VENT 40%. DR AVALOS ORDERED TO INCREASE RATE TO 14. TUBE 24 LIP PLACEMENT. 7.5. NG TAPED TO ETT. 35 MCG OF PROPOFOL. PATIENT DOES OPEN EYES TO SPEECH. BALLARD. NO DISTRESS. TURNED Q 2HRS. MOUTH CARE Q2HRS. CVL DRESSING CHANGED AND PLACED SANDBAGS ON. FAMILY AT BEDSIDE. CATH TOMOROW PER CRUZ. BUN TRENDING UP. WILL CONTINUE TO MONITOR
--- NOTE | 2019-05-17 19:00 | NUR ---
SHIFT ASSESSMENT COMPLETE. PT IS SEDATED ON VENT. ETT/NGT SECURED. NGT R NARE INFUSING PULMOCARE @ 50 ML/HR. PLACEDMENT CHECKED VIA AUSCULTATION, 80 ML RESIDUAL. ETT SIZE 7.5, 24 CM LIP, VENT SETTINGS: A/C RATE OF 16, TIDAL VOLUME 600, FIO2 40%, PEEP 8.0. LT CHEST PIV INFUSING NS @ 30 ML/HR. R HAND PIV INFUSING PROPOFOL @ 35 MCG/KG/MIN. RT SUBCLAVIAN CVL S/L, DRESSING IS BLOODY, MD'S ARE AWARE THAT CVL IS BLEEDING, SAND BAG RESTING ON SITE. DIMINISHED BREATH SOUNDS HEARD BILAT THROUGHOUT ALL LOBES. S1S2 AUDIBLE, HR 68 NSR SHOWING ON MONITOR. ABD LARGE, SOFT, BS ACTIVE X4. SKIN TEAR NOTED B/L WRIST AND FA. EXCORIATION NOTED UNDER BREASTS AND IN FOLDS. BALLARD CATH INTACT DRAINING CLEAR YELLOW URINE. SCDS ON AND FUNCTIONING. +3 PITTING EDEMA ON LOWER EXT. ORAL CARE PROVIDED VIA RT. REPOSITIONED FOR COMFORT. B/L WRIST RESTRAINTS REMOVED AND SKIN ASSESSED, WNL. TIGHT PARAMETERS SET ON ICU MONITORS. VAT PRECAUTIONS IN PLACE. VSS. WILL CONT TO MONITOR CLOSELY.
--- NOTE | 2019-05-17 21:00 | NUR ---
DAUGHTER AT BEDSIDE. REPOSITIONED FOR COMFORT. ALL QUESTIONS ANSWERED. NO FURTHER NEEDS AT THIS TIME. WILL CONT TO MONITOR.
--- NOTE | 2019-05-17 21:30 | NUR ---
SPOKE WITH DR. HANNA, NEW ORDERS RECIVED. SHE STATED THAT SHE WILL CALL BACK IN AN HOUR. NEW ORDERS RECEIVED.
[2019-05-17 22:25] LABS: ANION GAP 12.6 mmol/L (8-16); CARBON DIOXIDE 25.2 mmol/L (21.0-32.0); CREATININE - SERUM 2.1 mg/dL (0.6-1.3); POTASSIUM - SERUM 4.8 mmol/L (3.5-5.1)
--- NOTE | 2019-05-17 23:00 | NUR ---
REASSESSMENT COMPLETE. NO CHANGES IN PT CONDITION. REPOSITIONED FOR COMFORT. SEE FLOWSHEET FOR FURTHER DETAILS. WILL CONT CLOSE MONITORING IN ICU.
[2019-05-18] VITALS (44 sets, daily range): BP systolic 81–121; BP diastolic 33–72
--- NOTE | 2019-05-18 01:00 | NUR ---
ORAL CARE PROVIDED VIA RT. REPOSITIONED FOR COMFORT. REINFORCED R SUBCLAVIAN CVL, SAND BAG IN PLACE. VSS. WILL CONT TO MONITOR.
--- NOTE | 2019-05-18 03:00 | NUR ---
REASSESSMENT COMPLETE. REDRESSED BLEEDING CVL, PRESSURE DRESSING APPLIED, SAND BAG IN PLACE. PARTIAL BED BATH PROVIDED. REPOSITIONED FOR COMFORT. ORAL CARE PROVIDED. NS IS NOW INFUSING THROUGH Y SITE OF PROPOFOL IN R HAND. LT CHEST S/L. BM NOTED, PARTIAL LINEN CHANGE PROVIDED. NO FURTHER CHANGES AT THIS TIME. VSS. WILL CONT TO MONITOR.
--- NOTE | 2019-05-18 05:00 | NUR ---
CHG BATH AND LINEN CHANGE PROVIDED. REPOSITIONED FOR COMFORT. NO FURTHER NEEDS. WILL CONT WITH POC.
[2019-05-18 05:52] LABS: BASOPHILS 0 % (0-2); EOSINOPHILS 0 % (0-7); HEMOGLOBIN 7.7 g/dL (12-16); IMMATURE GRANULOCYTES 0.3 % (0-5); LYMPHOCYTES 6.7 % (15-50); MCH 23.7 pg (26.0-34.0); MCHC 29.6 g/dL (31.0-37.0); MEAN PLATELET VOLUME 10.5 fL (7.4-10.4); MONOCYTES 9.5 % (2-11); NEUTROPHILS 83.5 % (40-80); PLATELET COUNT 229 10x3/uL (130-400); RBC 3.25 10x6/uL (4.00-5.40); RDW 17.6 % (11.5-14.5)
[2019-05-18 05:54] LABS: WBC 15.3 10x3/uL (4.8-10.8)
[2019-05-18 06:07] LABS: INR 1.28 (0.85-1.17); PROTIME 15.4 SECONDS (11.6-15.0)
[2019-05-18 06:37] LABS: ALBUMIN 2.4 g/dL (3.4-5.0); ANION GAP 11.6 mmol/L (8-16); BILIRUBIN - TOTAL 0.3 mg/dL (0.2-1.3); CALCIUM 8.1 mg/dL (8.5-10.1); CREATININE - SERUM 2.1 mg/dL (0.6-1.3); MAGNESIUM - SERUM 2.3 mg/dL (1.8-2.4); PHOSPHOROUS 3.7 mg/dL (2.5-4.9); POTASSIUM - SERUM 4.6 mmol/L (3.5-5.1); PROTEIN - SERUM 5.7 g/dL (6.4-8.2)
[2019-05-18 06:40] LABS: TROPONIN-I 0.62 ng/mL (0.000-0.060)
--- NOTE | 2019-05-18 07:00 | NUR ---
REPORT RECEIVED FROM THE OFF GOING RN. SEE ASSESSMENT IN THE PTS FLOW SHEET. PT SEDATED ON THE VENT. 7.5 ETT 25 AT THE LIP. VENT: AC 15, VOL 600, FIO2 40%, PEEP 8. NGT TO THE R NARE WITH PULMOCARE AT 30ML/H. NGT PATENTCY CHECKED VIA A&A WITH 60ML OF RESIDUAL NOTED. RIGHT CVL WHICH IS BLEEDING AND SECURED WITH 4X4 AND A PRESSURE BAG. MD AWARE. IV NOTED TO LEFT UPPER CHEST SL. IV NOTED TO RIGHT HAND WITH DIPROVAN INFUSING AT 25MCG/KG/MIN AND NS AT 30ML/H. FC NOTED WITH CLEAR, YELLOW URINE. CALL LIGHT NSR ON THE MONITOR. VSS. WILL CONT POC.
[2019-05-18 07:42] LABS: CHOL - HDL RATIO 5.9 ratio (2.3-4.1); CHOLESTEROL, TOTAL 148 mg/dL (0-200); CREATINE KINASE 90 UL (21-215); HDL CHOLESTEROL 25 mg/dL (32-96); TRIGLYCERIDE 406 mg/dL (30-200)
--- NOTE | 2019-05-18 08:34 | NUR ---
DIRECTOR TRAFFIC AND PLANNING CALLED AND WAS NOTIFIED TO PREOP
--- NOTE | 2019-05-18 10:19 | NUR ---
PT LEFT TO THE EXTRUSION BENDER IN A STABLE CONDITION.
--- NOTE | 2019-05-18 12:57 | NUR ---
PT ARRIVED IN THE UNIT FROM THE CINDER MAN. PT HOOKED TO THE MONITOR. SINUS JOZEF NOTED BUT HEMODYNAMICALLY STABLE. RIGHT BRACHIAL TR BAND NOTED. PULSE DOPPERABLE. RIGHT GROIN SLIGHTLY BLOODY. NO HEMATOMA PALPATED. DAUGHTERS AT THE PTS BEDSIDE. WILL CONT POC.
--- NOTE | 2019-05-18 14:11 | NUR ---
START WITH DR ARROYO ABOUT PERSISTANT BRADYCARDIA AND HYPOTESION. GET CBC AND START DOPAMINE.
--- NOTE | 2019-05-18 14:37 | NUR ---
DOPAMINE STARTED AND TITRATED TO 7.5 PER ORDERS. AT THIS TIME DR AVALOS WALKED INTO THE ROOM. WAS UPDATING DR AVALOS ON THE PTS CONDITION. PT WENT INTO A RATE OF 88 WITH WIDE QRX'S THEN MULTIPLE PVC'S IN A ROW. PT HYPERTENSIVE. DOPAMINE WEEN OFF PER DR AVALOS AND TOLD TO TURN OFF SEDATION. PT CONVERTED TO NSR RATE 60'S AFTER PVC/WIDE QRX COMPLEXES. DR AVALOS ORDERED STAT MAG AND BPM. RESULTS FROM CBC RECEIVED. DR AVALOS ORDERED TYPE AND CROSS AND TO GIVE [address] ARROYO ALSO PAGED TO UPDATE ON THE PTS CONDITION. STAT ECHO.
[2019-05-18 14:41] LABS: BASOPHILS 0 % (0-2); EOSINOPHILS 0 % (0-7); HEMATOCRIT 22.4 % (36.0-48.0); IMMATURE GRANULOCYTES 0.2 % (0-5); LYMPHOCYTES 5.5 % (15-50); MCH 24.4 pg (26.0-34.0); MCHC 30.4 g/dL (31.0-37.0); MCV 80.3 fL (80.0-100.0); MEAN PLATELET VOLUME 10.6 fL (7.4-10.4); MONOCYTES 4.8 % (2-11); NEUTROPHILS 89.5 % (40-80); PLATELET COUNT 203 10x3/uL (130-400); RBC 2.79 10x6/uL (4.00-5.40); RDW 17.7 % (11.5-14.5)
--- NOTE | 2019-05-18 14:43 | CN ---
PATIENT NAME:TROY HAYWOOD MEDICAL RECORD: [id number] : 57 LOCATION:[facility].CV06 ADMIT DATE: 05/14/19 ACCOUNT: [id number] CONSULTING PHYSICIAN: JORDEN MILLER MD REFERRING PHYSICIAN: KARI PINEDA MD DATE OF CONSULTATION: 05/15/2019 CONSULT REQUESTING PHYSICIAN: Kari Pineda MD REASON FOR CONSULTATION: Vent management, acute respiratory failure. HISTORY OF PRESENT ILLNESS: Ms. Haywood is a 64-year-old female, who was transferred from [place] with non-STEMI and severe hypercapnic hypoxic respiratory failure. Now, the patient is orally intubated and sedated. The history was taken by reviewing the patient's note as well as talking to the nursing staff. The patient does have a history of smoking. She has COPD. She has gastroesophageal reflux disease, hypothyroidism and congestive heart failure. She is morbidly obese. REVIEW OF SYSTEMS: As in history of present illness. PAST MEDICAL HISTORY: 1. COPD. 2. Hypothyroidism. 3. Congestive heart failure. 4. Hypertension. 5. Coronary artery disease. 6. Neuropathy. 7. Gastroesophageal reflux disease. ALLERGIES: SHE IS ALLERGIC TO KETOROLAC, CODEINE AND TRAMADOL. PERSONAL AND SOCIAL HISTORY: The detail is not obtainable. FAMILY HISTORY: Significant for hypertension. PHYSICAL EXAMINATION: GENERAL: Now, the patient is orally intubated and sedated. VITAL SIGNS: The blood pressure is 158/70, pulse is 61, respirations 16, temperature 98.4, and SPO2 is 97%. She is on assist control rate of 16, tidal volume of 500, PEEP of 8, 50% oxygen. HEENT: Conjunctivae are pink. Sclerae are not icteric. NECK: Supple, no JVD. CHEST: There are bilateral crackles. No wheeze. HEART: Rate and rhythm regular, normal sound, no murmur. ABDOMEN: Soft, bowel sounds present. No hepatosplenomegaly. RECTAL: Deferred. EXTREMITIES: No cyanosis, no clubbing. There is 2+ pedal edema. CENTRAL NERVOUS SYSTEM: The patient is orally intubated and sedated. There is no obvious cranial nerve abnormality. The patient is morbidly obese. CHEST RADIOGRAPH: The ET tube is at the vocal cords. There are bilateral pulmonary edema and venous congestion. OTHER LABORATORY DATA: CBC; the WBC is 8.3, hemoglobin 9.9, hematocrit 34.2, CONSULT REPORT [id number] TROY HAYWOOD the platelet count 246. ABG; the pH was 7.21, pCO2 is 57.5, pO2 is 99, bicarbonate is 23.3. Chemistry; sodium 138, potassium 5.5, BUN is 33, creatinine 2.2. Troponin is 2.94. The proBNP is 6905. IMPRESSION: 1. Acute hypoxic hypercapnic respiratory failure. 2. Respiratory acidosis. 3. Chronic obstructive pulmonary disease. 4. Pulmonary edema. 5. Myocardial infarction. 6. Congestive heart failure. 7. Chronic kidney disease. 8. Tobacco dependence syndrome. 9. Morbid obesity. RECOMMENDATION: 1. Continue mechanical ventilation with adjust the setting. 2. Diuresis. 3. Gastrointestinal bleed and deep vein thrombosis prophylaxis. 4. Cardiac workup per cardiology. 5. Blood pressure control. 6. Adjust the vent setting. Followup of labs and chest radiograph. Discussed with Dr. Christie. Discussed with RN and RT. We will adjust the ET tube position. Dr. Pineda, thank you for involving me in the care of Ms. Haywood. TRANSINT:[id number] Voice Confirmation ID: [id number] DOCUMENT ID: [id number] JORDEN MILLER MD at 1443 CC: KARI PINEDA [id number] DICTATION DATE: 05/15/19 1017 ACCOUNTING LECTURER: 05/15/19 1104 ADM IN [facility] [address] [place] [address]
[2019-05-18 14:47] LABS: HEMOGLOBIN 6.8 g/dL (12-16); WBC 8.9 10x3/uL (4.8-10.8)
[2019-05-18 15:28] LABS: ANION GAP 10.3 mmol/L (8-16); CALCIUM 7.8 mg/dL (8.5-10.1); CARBON DIOXIDE 27.7 mmol/L (21.0-32.0); CREATININE - SERUM 2.2 mg/dL (0.6-1.3); MAGNESIUM - SERUM 2.3 mg/dL (1.8-2.4)
--- NOTE | 2019-05-18 15:45 | NUR ---
DR ARROYO AT THE PTS BEDSIDE.
--- NOTE | 2019-05-18 17:45 | NUR ---
PT BECOMING HYPOTENSIVE DR ALEJANDRO NOTIFIED. GIVE 500NS BOLUS AND 25G OF IV ALBUMIN.
[2019-05-19] VITALS (93 sets, daily range): BP systolic 77–122; BP diastolic 27–85
[2019-05-19 06:35] LABS: INR 1.23 (0.85-1.17)
[2019-05-19 06:41] LABS: ALBUMIN 2.3 g/dL (3.4-5.0); ANION GAP 11.8 mmol/L (8-16); BILIRUBIN - TOTAL 0.28 mg/dL (0.2-1.3); CALCIUM 8.1 mg/dL (8.5-10.1); CARBON DIOXIDE 25.1 mmol/L (21.0-32.0); CREATININE - SERUM 2.1 mg/dL (0.6-1.3); MAGNESIUM - SERUM 2.4 mg/dL (1.8-2.4); PHOSPHOROUS 4.2 mg/dL (2.5-4.9); POTASSIUM - SERUM 4.9 mmol/L (3.5-5.1); PROTEIN - SERUM 4.9 g/dL (6.4-8.2)
[2019-05-19 06:44] LABS: BASOPHILS 0.1 % (0-2); EOSINOPHILS 0 % (0-7); HEMATOCRIT 21.7 % (36.0-48.0); IMMATURE GRANULOCYTES 0.5 % (0-5); LYMPHOCYTES 11.1 % (15-50); MCH 24.4 pg (26.0-34.0); MCHC 30.4 g/dL (31.0-37.0); MCV 80.1 fL (80.0-100.0); MEAN PLATELET VOLUME 11.1 fL (7.4-10.4); MONOCYTES 10.1 % (2-11); NEUTROPHILS 78.2 % (40-80); PLATELET COUNT 202 10x3/uL (130-400); RBC 2.71 10x6/uL (4.00-5.40); RDW 17.3 % (11.5-14.5)
[2019-05-19 07:00] LABS: WBC 13.2 10x3/uL (4.8-10.8)
[2019-05-19 07:01] LABS: HEMOGLOBIN 6.6 g/dL (12-16)
--- NOTE | 2019-05-19 08:40 | NUR ---
FIRST UNIT OF BLOOD STARTED. DAUGHTER AT BEDSIDE. PATIENT AWAKE AND ALERT, OBEYING COMMANDS, TRYING TO WRITE NOTES AND TALK. COMMUNICATION BOARD PREPARED BY SHANNEN
--- NOTE | 2019-05-19 09:32 | NUR ---
DR. NIXON HERE STITCH PLACED IN RIGHT SUBCLAVIAN CENTRAL LINE. NO BLEEDING NOTED AT ENTRY SITE OR SUTURE SITE. CLEAN STERILE DRESSING PLACED PER DR. CHAVEZ. PATIENT TOELRATED FAIR
--- NOTE | 2019-05-19 11:02 | NUR ---
NUTRITION F/U PT REMAINS SEDATED ON VENT. TOLERATING PULMOCARE AT GOAL RATE 50 CC/HR. NURSING REPORTS POSSIBLE EXTUBATION TODAY. RD FOLLOWING
--- NOTE | 2019-05-19 11:18 | NUR ---
DR. AVALOS CALLED. UPDATE GIVEN STATES TO GET ABG, CHECK CUFF, LEAK, AND NUMBERS, CALL HIM RESULTS.
--- NOTE | 2019-05-19 12:30 | NUR ---
EXTUBATED ON 3 LITERS NC. NG TUBE PULLED. TOLERATED FAIR. HEAD OF BED ELEVATED 30 DEGREES. SUCTION BLOODY SPUTUM FROM MOUTH. RESP DEEP AND REGULAR NO STRIDOR
--- NOTE | 2019-05-19 13:00 | NUR ---
NO RESP DISTRESS. RESP DEEP AND REGULAR. DENIES ANY DIFFICULTY BREATHING GOOD COUGH BLOODY SPUTUM.
--- NOTE | 2019-05-19 14:00 | NUR ---
SMALL BROWN BM, PERICARE DONE, CLEAN LINEN APPLIED UNDER PATIENT CLEAN GOWN. REPOSITIONED IN BED ON SIDE. TOLERATED FAIR. MEDIPLEX ON COCCYX DRY AND INTACT. NO OTHER SKIN BREAKDOWN NOTED. NO REDNESS OR EXCORIATION NOTED.
--- NOTE | 2019-05-19 15:30 | NUR ---
SIPS OF ICE WATER TAKEN NO COUGHING NO DIFFICULTY SWALLOWING
[2019-05-19 15:51] LABS: HEMATOCRIT 23.5 % (36.0-48.0)
[2019-05-19 15:53] LABS: HEMOGLOBIN 7.3 g/dL (12-16)
--- NOTE | 2019-05-19 16:45 | NUR ---
DR. ALEJANDRO NOTIFIED OF LAB RESULTS ORDERS RECEIVED TO GIVEN [address] SCAN OF ABD PELVIS WITHOUT CONTRAST TO RULE OUT RETROPERINEAL BLEED.
--- NOTE | 2019-05-19 17:05 | NUR ---
3RD UNIT OF BLOOD STARTED. INSTRUCTIONS ON REACTION TO BLOOD GIVEN TO PATIENT.
--- NOTE | 2019-05-19 17:20 | NUR ---
TO CT SCAN PER BED. TRANSFERED TO CT TABLE. WHILE LAYING FLAT IN CT SCAN VOMITTED SOME GREEN CLEAR LIQUID. TRANSFERED TO BED. HEAD OF BED ELEVATED. NO RESP DISTRESS. PULSE OX ABOVE 98% ENTIRE TIME.
--- NOTE | 2019-05-19 18:12 | NUR ---
ZOFRAN GIVEN FOR NAUSEA. NO RESP DISTRESS. DAUGHTER HERE UPDATE GIVEN. RESP THERAPY HERE NOTIFIED DR. AVALOS WANTS BIPAP ON PATIENT DURING THE NIGHT, NOT PRN
--- NOTE | 2019-05-19 19:00 | NUR ---
REPORT RECEIVED FROM OFF GOING NURSE. PT IS LAYING IN BED WITH EYES CLOSED. NO NEEDS VOICED AT THIS TIME. NO SIGNS OF ACUTE DISTRESS. WILL CONTINUE TO MONITOR.
--- NOTE | 2019-05-19 19:31 | MORECARE ---
CASE MANAGEMENT DISCHARGE SUMMARY PATIENT: TROY HAYWOOD UNIT: [id number] ADM DATE: 05/14/19 AGE: 64 : 57 SEX: F ROOM/BED: [facility] AUTHOR: IRON NAYLOR PHYSICIAN: REFERRING PHYSICIAN: FABIO PINEDA MD DATE OF SERVICE: 05/19/19 Discharge Plan Patient Name: TROY HAYWOOD [facility] [facility] 1955 Planned Disposition: Home or Self Care Anticipated Discharge Date: Discharge Date: Expected LOS: Initial Reviewer: [email or web address] Initial Review Date: 05/19/2019 Generated: 05/19/19 8:31 pm DCPIA - Discharge Planning Initial Assessment Updated by [email or web address]: Aleisha Monroe on 05/19/19 7:29 pm * How many steps to enter\exit or inside your home? * PCP uncertain ? * Pharmacy [facility] * Preadmission Environment Home with Family * ADLs Independent * Other Equipment HOME 02, WALKER, SCOOTER, BSC, SC * List name and contact numbers for known caregivers / representatives who currently or will assist patient after discharge: CHEPE SUN - DAUGHTER- [phone] * Verbal permission to speak to the caregivers and representatives has been obtained from the patient. Yes * Community resources currently utilized Home Health * Please name any agencies selected above. [facility] * Additional services required to return to the preadmission environment? No * Can the patient safely return to the preadmission environment? Yes * Has this patient been hospitalized within the prior 30 days at any hospital? No Patient Name: TROY HAYWOOD Page [phone] at 1931 All edits/amendments must be made on the electronic document DICTATION DATE: 05/19/191929 LAP WINDER: MISHEL 05/19/191929 RPT#: [id number] DC DATE: STATUS: ADM IN [facility] [address] [place] [address] END OF REPORT
--- NOTE | 2019-05-19 19:38 | MORECARE ---
CASE MANAGEMENT DISCHARGE SUMMARY PATIENT: TROY HAYWOOD UNIT: [id number] ADM DATE: 05/14/19 AGE: 64 : 57 SEX: F ROOM/BED: D[facility] AUTHOR: DAYDAY,DOC PHYSICIAN: REFERRING PHYSICIAN: FABIO PINEDA MD DATE OF SERVICE: 05/19/19 Discharge Plan Patient Name: TROY HAYWOOD Facility: [facility]:[place] : 1955 Planned Disposition: Home or Self Care Anticipated Discharge Date: Discharge Date: Expected LOS: Initial Reviewer: [email or web address] Initial Review Date: 05/19/2019 Generated: 05/19/19 8:37 pm Comments DCP- Discharge Planning Updated by [email or web address]: Aleisha Monroe on 05/19/19 6:[address] Patient Name: TROY HAYWOOD Admission Status: ER Accout number: [id number] Admission Date: 05-14-2019 : 1955 Admission Diagnosis: Attending: FABIO PINEDA Current LOS: 5 Anticipated DC Date: Planned Disposition: Home or Self Care Primary Insurance: [place]ICAID [place] Discharge Planning Comments: CM met with patient and daughter to complete initial dc planning assessment. Patient recently extubated earlier today. CM educated patient on the CM role and verbal consent given by patient to complete assessment. Patient lives at home with her two young grand-daughters where she is independent with her care. At discharge patient plans to return home and feels this is a safe discharge. CM discussed availability of home health, rehab services, and medical equipment. Patient has Home 02 and HH with unknown providers. CM will f/u with patient @ later date to see if she is able to give providers. Patient denied known discharge needs at this time. CM will continue to follow and will assist as needed with dc plans/needs. Tin Pourer: Aleisha Monroe DCPIA - Discharge Planning Initial Assessment Updated by [email or web address]: Aleisha Monroe on 05/19/19 7:29 pm * How many steps to enter\exit or inside your home? * PCP uncertain ? * Pharmacy [facility] * Preadmission Environment Home with Family * ADLs Independent * Other Equipment HOME 02, WALKER, SCOOTER, BSC, SC * List name and contact numbers for known caregivers / representatives who currently or will assist patient after discharge: CHEPE SUN - DAUGHTER- [phone] * Verbal permission to speak to the caregivers and representatives has been obtained from the patient. Yes * Community resources currently utilized Home Health * Please name any agencies selected above. [facility] * Additional services required to return to the preadmission environment? No * Can the patient safely return to the preadmission environment? Yes * Has this patient been hospitalized within the prior 30 days at any hospital? No Last DP export: 05/19/19 6:31 Patient Name: TROY HAYWOOD Page [phone] at 1938 All edits/amendments must be made on the electronic document DICTATION DATE: 05/19/191936 SPECIALTY THERAPIST: MISHEL 05/19/191936 RPT#: [id number] DC DATE: STATUS: ADM IN [facility] [address] [place] [address] END OF REPORT
--- NOTE | 2019-05-19 21:00 | NUR ---
PT IS RESTING IN BED WITH EYES CLOSED. FAMILY WAS PRESENT AT BEDSIDE EARLIER. PT SPOKE ON THE PHONE WITH HER GRAND DAUGHTERS. PT REPOSITIONED IN BED. NO FURTHER NEEDS VOICED AT THIS TIME. NO S/S OF DISTRESS. WILL CONTINUE TO MONITOR.
--- NOTE | 2019-05-19 21:45 | NUR ---
APPLIED BILEVEL PER DR ORDER 15/ 40%FIO2 TOLERATED APPLICATION WELL RR 14 UNLABORED BILATERAL DIM BS TO ANTERIOR WHITING AUSCULTATION EQUALATERAL EXCURSTION SPO2 100% ZERO CYANOSIS NO IMMEDIATE S/S RESP DISTRESS NOTED
--- NOTE | 2019-05-19 23:00 | NUR ---
REASSESSMENT COMPLETED, SEE FLOWSHEET FOR DETAILS. PT IS LAYING IN BED ON THE BIPAP AT THIS TIME. NO NEEDS VOICED. PT REPOSITIONED FOR COMFORT. NO S/S OF DISTRESS NOTED AT THIS TIME. WILL CONTINUE TO MONITOR.
[2019-05-20] VITALS (93 sets, daily range): BP systolic 73–167; BP diastolic 26–65
[2019-05-20 00:10] LABS: HEMATOCRIT 24.9 % (36.0-48.0); HEMOGLOBIN 8.1 g/dL (12-16)
--- NOTE | 2019-05-20 01:00 | NUR ---
PT IS RESTING IN BED WITH BIPAP ON. NO NEEDS VOICED. NO S/S OF DISTRESS NOTED. WILL CONTINUE TO MONITOR.
--- NOTE | 2019-05-20 02:41 | NUR ---
BIPAP OFF 0200
--- NOTE | 2019-05-20 03:00 | NUR ---
REASSESSMENT COMPLETED, SEE FLOWSHEET FOR DETAILS. PT IS SITTING UP IN BED WATCHING TV AT THIS TIME. PT REQUESTED TO BE PULLED UP IN BED AT THIS TIME. NO FURTHER NEEDS NOTED. NO SIGNS OF ACUTE DISTRESS. WILL CONTINUE TO MONITOR.
[2019-05-20 04:37] LABS: HEMATOCRIT 24.8 % (36.0-48.0); HEMOGLOBIN 7.9 g/dL (12-16)
[2019-05-20 04:55] LABS: INR 1.15 (0.85-1.17); PROTIME 14.2 SECONDS (11.6-15.0)
--- NOTE | 2019-05-20 05:00 | NUR ---
PT IS RESTING IN BED. PT AGREED TO A BATH AND LINEN CHANGE. COMPLETE BED BATH AND LINEN PERFORMED. NO FURTHER NEEDS VOICED BY PATIENT. NO S/S OF DISTRESS. WILL CONTINUE TO MONITOR.
--- NOTE | 2019-05-20 07:00 | NUR ---
RECEIVED BEDSIDE REPORT AND ASSUMED CARE OF PATIENT. PATIENT RESTING QUIETLY, VSS. ON O2 AT 4 LPM VIA NC WITH SPO2 - 97%, HR - 66, SR ON CM, BBS CLEAR BUT DIMINISHED. CVP ZEROED 7 WITH RESPIRATORY VARIATIONS. NS INFUSING AT 75 CC/HR AND DOPAMINE AT 4 MCG/KG/MIN TO RIGHT SUBCLAVIAN CVL. DRESSING CLEAN, DRY AND INTACT. BALLARD CATH IN PLACE WTH RIO CLEAR UOP NOTED. DRESSING TO RIGHT WRIST WITH DRIED BLOOD NOTED. PATIENT TURNED AND REPOSITIONED IN BED. HEAD TO TOE ASSESSMENT COMPLETED.
[2019-05-20 07:22] LABS: HEMATOCRIT 24.9 % (36.0-48.0); HEMOGLOBIN 7.8 g/dL (12-16); MCH 26.7 pg (26.0-34.0); MCHC 31.3 g/dL (31.0-37.0); MEAN PLATELET VOLUME 11.3 fL (7.4-10.4); PLATELET COUNT 162 10x3/uL (130-400); RBC 2.92 10x6/uL (4.00-5.40); RDW 17.1 % (11.5-14.5)
[2019-05-20 07:24] LABS: MCV 85.3 fL (80.0-100.0)
[2019-05-20 07:29] LABS: ALBUMIN 2.4 g/dL (3.4-5.0); ANION GAP 12.2 mmol/L (8-16); CALCIUM 8.1 mg/dL (8.5-10.1); CARBON DIOXIDE 26.3 mmol/L (21.0-32.0); CREATININE - SERUM 2.5 mg/dL (0.6-1.3); MAGNESIUM - SERUM 2.4 mg/dL (1.8-2.4); POTASSIUM - SERUM 5.5 mmol/L (3.5-5.1)
[2019-05-20 07:30] LABS: PHOSPHOROUS 5.9 mg/dL (2.5-4.9)
--- NOTE | 2019-05-20 09:57 | NUR ---
Nutrition Follow-up: Extubated yesterday. RN reports no difficulty with meds. Wt: 452.54# Labs noted: K+ 5.5, Ca 8.1, PO4 5.9, Alb 2.4 Meds noted: Solumedrol, NS @ 30 -Rec ST eval and ADAT to renal diet (with consistencies per ST) as medically feasible. -RD following.
[2019-05-20 10:20] LABS: ANISOCYTOSIS OCC; LYMPHOCYTES 11 % (15-50); MONOCYTES 16 % (2-11); NEUTROPHILS 72 % (40-80); PLATELET ESTIMATE NORMAL
[2019-05-20 10:42] LABS: HEMATOCRIT 23.8 % (36.0-48.0)
[2019-05-20 10:53] LABS: HEMOGLOBIN 7.5 g/dL (12-16)
--- NOTE | 2019-05-20 10:57 | NUR ---
CALLED DR. ALEJANDRO REGARDING H AND H OF 7.5 AND 23.8, ORDERS 1 UNIT OF PRBCS TO BE GIVEN.
--- NOTE | 2019-05-20 11:09 | NUR ---
REASSESSMENT COMPLETE. VSS. TURNED AND REPOSTIONED IN BED. CVP ZEROED - 10.
--- NOTE | 2019-05-20 11:33 | NUR ---
UNIT 1 OF 1 PRBCS INFUSION INITIATED.
--- NOTE | 2019-05-20 12:24 | NUR ---
PATIENT PLACED BACK ON BIPAP WHILE NAPPING.
--- NOTE | 2019-05-20 12:28 | NUR ---
SPOKE TO DR. AVALOS REFERENCE ABG RESULTS, PATIENT ON BIPAP.
--- NOTE | 2019-05-20 12:56 | NUR ---
PATEINT RESTING QUIETLY ON BIPAP, VSS. SPO2 - 100%. WILL CONTINUE TO MONITOR. PRBCS INFUSING.
--- NOTE | 2019-05-20 13:21 | NUR ---
RT DECREASES FIO2 ON BIPAP TO 30%.
--- NOTE | 2019-05-20 13:49 | OP ---
PATIENT NAME: TROY HAYWOOD MEDICAL RECORD: [id number] :57 LOCATION:D.[facility] D.CV06 ADMISSION DATE:05/14/19 SURGEON: MAGDA CHAVEZ MD DATE OF OPERATION: 05/16/2019 PREOPERATIVE DIAGNOSES: 1. Respiratory failure on the ventilator. 2. Chronic obstructive pulmonary disease. 3. Pulmonary edema. 4. Myocardial infarction. 5. Congestive heart failure, undifferentiated. 6. History of chronic kidney disease. 7. Tobacco dependent syndrome. 8. Morbid obesity. POSTOPERATIVE DIAGNOSES: 1. Respiratory failure on the ventilator. 2. Chronic obstructive pulmonary disease. 3. Pulmonary edema. 4. Myocardial infarction. 5. Congestive heart failure, undifferentiated. 6. History of chronic kidney disease. 7. Tobacco dependent syndrome. 8. Morbid obesity. PROCEDURE: Right subclavian vein triple-lumen central venous line placement. SURGEON: Magda Chavez MD REPORT OF PROCEDURE: The patient's right chest was prepped and draped in sterile fashion. A total of 5 mL of 1% lidocaine with epinephrine was infused into the surrounding tissues. A needle was then used to cannulate the right subclavian vein and a guidewire was advanced with ease. Over this wire, a dilator was placed followed by the triple lumen catheter. The catheter aspirated nonpulsatile dark blood and flushed easily in all 3 ports. This was sutured into place with 3-0 Prolene ties and dressed appropriately. COMPLICATIONS: None. CONDITION: Stable. ANESTHESIA: General endotracheal and local. BLOOD LOSS: Minimal. Procedure done in the ICU at the bedside. TRANSINT:[id number] Voice Confirmation ID: [id number] DOCUMENT ID: [id number] OPERATIVE REPORT [id number] TROY HAYWOOD CHRISTIAN MD at 1349 CC: [id number] DICTATION DATE: 05/16/19 1446 HASH SLINGER: 05/16/19 2214 ADM IN [facility] [id number] [place] [address]
--- NOTE | 2019-05-20 14:08 | NUR ---
DRESSING TO RIGHT WRIST SKIN CHANGED.
--- NOTE | 2019-05-20 14:10 | NUR ---
PATIENT REMOVED FROM BIPAP, MORE ALERT. SPO2 - 100%.
--- NOTE | 2019-05-20 14:51 | NUR ---
PRBC INFUSION COMPLETED, VSS. NO S/S OF TRANSFUSION REACTION.
--- NOTE | 2019-05-20 15:08 | NUR ---
REASSESSMENT COMPLETE. VSS. PATIENT WITH NO NEEDS AT THIS TIME.
--- NOTE | 2019-05-20 15:57 | NUR ---
PATIENT REPOSITIONED IN BED.
--- NOTE | 2019-05-20 16:24 | NUR ---
H AND H DRAWN AND SENT TO LAB.
[2019-05-20 16:28] LABS: HEMATOCRIT 25.1 % (36.0-48.0); HEMOGLOBIN 7.9 g/dL (12-16)
--- NOTE | 2019-05-20 17:31 | NUR ---
BMP DRAWN AND SENT TO LAB. PATIENT TURNED AND REPOSITIONED IN BED. ISIDORO ATE APPROXIMATELY 85% OF DINNER.
[2019-05-20 17:44] LABS: ANION GAP 8.6 mmol/L (8-16); CALCIUM 8.2 mg/dL (8.5-10.1); CARBON DIOXIDE 27.2 mmol/L (21.0-32.0); CREATININE - SERUM 2.3 mg/dL (0.6-1.3); POTASSIUM - SERUM 5.8 mmol/L (3.5-5.1)
--- NOTE | 2019-05-20 19:00 | NUR ---
PT REPORT RECEIVED FROM DAY SHIFT NURSE. NO COMPLAINTS NOTED AT THIS TIME. VSS. ON DOPAMINE DRIP. WILL CONTINUE TO MONITOR
--- NOTE | 2019-05-20 21:00 | NUR ---
PT RESTING IN BED. HAD TO INCREASE DOPAMINE DRIP DUE TO LOW BP. OTHERWISE STABLE VITAL SIGNS. WILL CONTINUE TO MONITOR
--- NOTE | 2019-05-20 22:00 | NUR ---
H AND H LAB DRAWN AND SENT TO LAB. PT TOLERATED WELL. WILL CONTINUE TO MONITOR
[2019-05-20 22:12] LABS: HEMATOCRIT 25.5 % (36.0-48.0); HEMOGLOBIN 7.9 g/dL (12-16)
--- NOTE | 2019-05-20 23:00 | NUR ---
PT RESTING IN BED. CURRENTLY ON PHONE TALKING TO FAMILY. VSS. NO SIGNS OF DISTRESS NOTED. REASSESSMENT COMPLETED. WILL CONTINUE TO MONITOR
[2019-05-21] VITALS (69 sets, daily range): BP systolic 97–150; BP diastolic 27–101
--- NOTE | 2019-05-21 01:00 | NUR ---
RESTING WITH EYES CLOSED, EASILY ROUSED AND ALERT. VSS. ON BIPAP
--- NOTE | 2019-05-21 01:00 | NUR ---
PT RESTING IN BED. BIPAP IN USE. NO SIGNS OF DISTRESS NOTED. VSS. WILL CONTINUE TO MONITOR
--- NOTE | 2019-05-21 03:00 | NUR ---
PT RESTING IN BED. BIPAP IN USE. REASSESSMENT COMPLETED. VSS. WILL CONTINUE TO MONITOR
--- NOTE | 2019-05-21 05:00 | NUR ---
PT RESTING IN BED. BIPAP STILL ON. PT VITALS STABLE. NO SIGNS OF DISTRESS NOTED. WILL CONTINUE TO MONITOR
[2019-05-21 05:27] LABS: BASOPHILS 0 % (0-2); EOSINOPHILS 0.2 % (0-7); IMMATURE GRANULOCYTES 1.1 % (0-5); MCH 26.4 pg (26.0-34.0); MCHC 30.9 g/dL (31.0-37.0); MCV 85.3 fL (80.0-100.0); MEAN PLATELET VOLUME 10.5 fL (7.4-10.4); MONOCYTES 12.3 % (2-11); NEUTROPHILS 77.4 % (40-80); PLATELET COUNT 164 10x3/uL (130-400); RBC 2.58 10x6/uL (4.00-5.40); RDW 16.7 % (11.5-14.5); WBC 11.3 10x3/uL (4.8-10.8)
[2019-05-21 05:29] LABS: HEMOGLOBIN 6.8 g/dL (12-16)
--- NOTE | 2019-05-21 05:30 | NUR ---
NOTIFIED OF CRITICAL LAB RESULT. HGB OF 6.8 REPORTED BY LAB. WILL CONTACT ORCHARDIST DOCTOR.
[2019-05-21 05:45] LABS: ALBUMIN 2.1 g/dL (3.4-5.0); ANION GAP 9.9 mmol/L (8-16); BILIRUBIN - TOTAL 0.34 mg/dL (0.2-1.3); CARBON DIOXIDE 25.7 mmol/L (21.0-32.0); CREATININE - SERUM 1.9 mg/dL (0.6-1.3); MAGNESIUM - SERUM 2.4 mg/dL (1.8-2.4); PHOSPHOROUS 4.9 mg/dL (2.5-4.9); POTASSIUM - SERUM 5.6 mmol/L (3.5-5.1); PROTEIN - SERUM 4.8 g/dL (6.4-8.2)
--- NOTE | 2019-05-21 06:00 | NUR ---
CALL PUT IN TO DR ALBARRAN'S OFFICE. AWAITING CALL BACK.
--- NOTE | 2019-05-21 06:41 | NUR ---
DR HANNA CALLED REGARDING PT. DISCUSSED CRITICAL LAB VALUE. ORDERS RECEIVED. WILL CONTINUE TO MONITOR
--- NOTE | 2019-05-21 07:00 | NUR ---
RECEIVED REPORT ON PATIENT AND ASSUMED CARE. PATIENT ALERT AND ORIENTED X 4. VSS. NS AT 75 CC/HR INFUSING TO RIGHT SUBCLAVIAN. PATIENT TURNED, AND LINENS CHANGED. PATIENT C/O PAIN 6/10 TO RIGHT SHOULDER AND LEFT RIBS UPON TURNING, PRN TYLENOL GIVEN. PATIENT RESPOSITIONED IN THE BED. HEAD TO TOE ASSESSMENT COMPLETED.
--- NOTE | 2019-05-21 08:02 | NUR ---
UNIT 1 OF 2 PRBCS INFUSION INITIATED.
--- NOTE | 2019-05-21 09:37 | MORECARE ---
CASE MANAGEMENT DISCHARGE SUMMARY PATIENT: TROY HAYWOOD UNIT: [id number] ADM DATE: 05/14/19 AGE: 64 : [birth year] SEX: F ROOM/BED: D.[facility] AUTHOR: DAYDAY,DOC PHYSICIAN: REFERRING PHYSICIAN: FABIO PINEDA MD DATE OF SERVICE: 05/21/19 Discharge Plan Patient Name: TROY HAYWOOD Facility: [facility]:[place] : 1955 Planned Disposition: Home or Self Care Anticipated Discharge Date: Discharge Date: Expected LOS: Initial Reviewer: [email or web address] Initial Review Date: 05/19/2019 Generated: 05/21/19 10:37 am Comments DCP- Discharge Planning Updated by [email or web address]: Aleisha Monroe on 05/19/19 6:[address] Patient Name: TROY HAYWOOD Admission Status: ER Accout number: [id number] Admission Date: 05-14-2019 : 1955 Admission Diagnosis: Attending: FABIO PINEDA Current LOS: 5 Anticipated DC Date: Planned Disposition: Home or Self Care Primary Insurance: MEDICAID [place] Discharge Planning Comments: CM met with patient and daughter to complete initial dc planning assessment. Patient recently extubated earlier today. CM educated patient on the CM role and verbal consent given by patient to complete assessment. Patient lives at home with her two young grand-daughters where she is independent with her care. At discharge patient plans to return home and feels this is a safe discharge. CM discussed availability of home health, rehab services, and medical equipment. Patient has Home 02 and HH with unknown providers. CM will f/u with patient @ later date to see if she is able to give providers. Patient denied known discharge needs at this time. CM will continue to follow and will assist as needed with dc plans/needs. Manager Entry: Aleisha Monroe DCPIA - Discharge Planning Initial Assessment Updated by [email or web address]: Aleisha Monroe on 05/19/19 7:29 pm * How many steps to enter\exit or inside your home? * PCP uncertain ? * Pharmacy [facility] * Preadmission Environment Home with Family * ADLs Independent * Other Equipment HOME 02, WALKER, SCOOTER, BSC, SC * List name and contact numbers for known caregivers / representatives who currently or will assist patient after discharge: CHEPE SUN - DAUGHTER- [phone] * Verbal permission to speak to the caregivers and representatives has been obtained from the patient. Yes * Community resources currently utilized Home Health * Please name any agencies selected above. [facility] * Additional services required to return to the preadmission environment? No * Can the patient safely return to the preadmission environment? Yes * Has this patient been hospitalized within the prior 30 days at any hospital? No Last DP export: 05/19/19 6:38 Patient Name: TROY HAYWOOD Page 15510 at 0937 All edits/amendments must be made on the electronic document DICTATION DATE: 05/21/19936 [employer] MANAGEMENT MARKETING: MISHEL 05/21/19936 RPT#: [id number] DC DATE: STATUS: ADM IN [facility] [address] [place] [address] END OF REPORT
--- NOTE | 2019-05-21 09:56 | NUR ---
Nutrition Follow-up: Extubated 05/19. Per ST, ok for regular solids and thin liquids. Ate ~85% of dinner last night. Per RN, tanika held this AM in case of need for procedure. Diet: Regular Wt: 453.2# Last BM: 05/19 Labs noted: K+ 5.6, Glu 100, Ca 8.0, Alb 2.1, PO4 4.9 Meds reviewed -Change to renal diet 2/2 elevated K+. -RD following.
--- NOTE | 2019-05-21 10:03 | NUR ---
1 OF 2 PRBC COMPLETED INFUSING AT 0950, 2 OF 2 PRBCS STARTED INFUSING AT 1000. PATIENT WITH NO S/S OF TRANSFUSION REACTION. DR. ALEJANDRO AT ROOM UPDATED AND EXMAINES PATIENT.
--- NOTE | 2019-05-21 11:14 | NUR ---
REASSESSMENT COMPLETE. BLOOD INFUSING WITHOUT DIFFICULTY, VSS, NO S/S OF TRANSFUSION REACTION. TURNED AND REPOSITINED IN BED.
--- NOTE | 2019-05-21 11:50 | NUR ---
2/2 PRBC INFUSION COMPLETED. VSS. TOLERATED WELL.
--- NOTE | 2019-05-21 11:55 | NUR ---
OT NOTE: ATTEMPTED EVAL IN AM, HOWEVER, PT RECEIVING BLOOD THIS AM. WILL RE ATTEMPT. SAÚL ESCAMILLA, OTR/L
--- NOTE | 2019-05-21 12:03 | NUR ---
PATIENT SET UP, REPOSITIONED IN BED AND GIVEN LUNCH TRAY. GRANDDAUGHTER AT BEDSIDE ASSISTING PATIENT WITH MEAL.
--- NOTE | 2019-05-21 13:02 | NUR ---
PATIENT C/O LEFT RIB PAIN, RATES 5/10, GIVEN PRN TYLENOL PER SEP. TURNED AND REPOSITIONED. IRINA-AREA ALSO CLEANED AROUND BALLARD.
--- NOTE | 2019-05-21 13:24 | NUR ---
LAB DRAWN AND SENT FOR H AND H.
--- NOTE | 2019-05-21 13:30 | NUR ---
DR. AVALOS AT ROOM UPDATED AND EXAMINES PATIENT.
[2019-05-21 13:39] LABS: HEMATOCRIT 26.4 % (36.0-48.0)
[2019-05-21 13:59] LABS: HEMOGLOBIN 8.2 g/dL (12-16)
--- NOTE | 2019-05-21 15:00 | NUR ---
REASSESSMENT COMPLETED. PATIENT RESTING QUIETLY ON BIPAP, EASILY AROUSED BY VOICE, VSS.
--- NOTE | 2019-05-21 17:01 | NUR ---
PATIENTS GRANDDAUGHTER AT BEDSIDE ASSISTING WTIH DINNER TRAY. VSS.
--- NOTE | 2019-05-21 17:30 | NUR ---
PATIENT ATE APPROXIMATELY 80% OF DINNER, TURNED AND REPOSITIONED IN BED. VSS.
--- NOTE | 2019-05-21 17:49 | NUR ---
PATIENT RESTING QUIETLY, VSS.
--- NOTE | 2019-05-21 18:25 | NUR ---
PATIENT PLACED ON BIPAP.
--- NOTE | 2019-05-21 19:00 | NUR ---
REPORT RECEIVED. RECEIVED PATIENT IN BED, AWAKE ALERT AND ORIENTED X 4. MONITORS CONNECTED TO PATIENT WITH ALARMS SET. VSS. CALL LIGHT IN REACH AND ABLE TO UTILIZE TO MAKE NEEDS KNOWN.
[2019-05-21 19:50] LABS: HEMATOCRIT 25.9 % (36.0-48.0)
--- NOTE | 2019-05-21 21:00 | NUR ---
AWAKE AND ALERT. VSS
--- NOTE | 2019-05-21 23:00 | NUR ---
AWAKE AND ALERT. VSS
[2019-05-22] VITALS (24 sets, daily range): BP systolic 97–150; BP diastolic 33–59
--- NOTE | 2019-05-22 01:00 | NUR ---
RESTING WITH EYES CLOSED, EASILY ROUSED AND ALERT. VSS. CALL LIGHT IN REACH.
[2019-05-22 02:28] LABS: HEMATOCRIT 25.3 % (36.0-48.0); HEMOGLOBIN 7.8 g/dL (12-16)
--- NOTE | 2019-05-22 03:00 | NUR ---
RESTING WITH EYES CLOSED, EASILY ROUSED AND ALERT. REASSESSEMENT COMPLETED PER FLOW SHEET WITH NO ACUTE DISTRESS OBSERVED. VSS. CALL LIGHT IN REACH
--- NOTE | 2019-05-22 05:00 | NUR ---
RESTING WITH EYES CLOSED, EASILY ROUSED AND ALERT. VSS
--- NOTE | 2019-05-22 07:30 | NUR ---
AWAKE AND ALERT SKIN WARM AND DRY. INSTRUCTIONS GIVEN ON PUSHING SELF UP IN THE BED. RIGHT SUBCLAVIAN DRESSING DRY AND INTACT INFUSING WITH NS AT 75 ML HOUR PER CENTRAL LINE. BALLARD CATH PATENT. OXYGEN AT 3 LITERS PER NC
--- NOTE | 2019-05-22 08:13 | NUR ---
BREAKFAST TRAY SERVED AND SET UP. FRESH ICE WATER GIVEN. PATIENT WASHED HER FACE.
[2019-05-22 08:20] LABS: HEMATOCRIT 25.3 % (36.0-48.0)
--- NOTE | 2019-05-22 09:30 | NUR ---
STATES SHE IS SHORT OF BREATH PULSE OX 88%. PLACED BACK ON BIPAP
--- NOTE | 2019-05-22 10:00 | NUR ---
DR. ALEJANDRO HERE ORDERS RECEIVED. UP DATE GIVEN
--- NOTE | 2019-05-22 11:00 | NUR ---
PHYSICAL THERAPY AND OCCUPATIONAL THERAPY HERE, SAT PATIENT UP ON SIDE OF BED. TOLERATED FAIR. SOME DIZZYNESS AT FIRST.
--- NOTE | 2019-05-22 12:00 | NUR ---
LUNCH SERVED ATE 60% OF LUNCH FEEDING SELF
--- NOTE | 2019-05-22 13:02 | NUR ---
COMPLETE BED BATH GIVEN WITH LINEN CHANGE ASSISTANCES OF 5 PEOPLE. PATIENT TOLERATES POORLY.
[2019-05-22 14:50] LABS: ANION GAP 10.9 mmol/L (8-16); CALCIUM 8.1 mg/dL (8.5-10.1); CARBON DIOXIDE 25.8 mmol/L (21.0-32.0); CREATININE - SERUM 1.6 mg/dL (0.6-1.3)
[2019-05-22 14:51] LABS: POTASSIUM - SERUM 4.7 mmol/L (3.5-5.1)
--- NOTE | 2019-05-22 15:00 | NUR ---
RESTING COMFORTABLY ON NC NO DISTRESS PULSE OX GREATER THAN 96%. WATCHING TV
--- NOTE | 2019-05-22 16:45 | NUR ---
SUPER TRAY SERVED. FAMILY HERE UPDATE GIVEN
--- NOTE | 2019-05-22 17:00 | NUR ---
FAMILY FEEDING PATIENT, ENCOURAGE FAMILY TO LET PATIENT FEED HERSELF.
--- NOTE | 2019-05-22 18:43 | NUR ---
REPOSITIONED ON RIGHT SIDE IN BED WITH WEDGES. TOLERATES POORLY. PATIENT WANTS TO STAY ON BACK. INSTRUCTIONS GIVEN ON IMPORTANCE OF TURNING ON SIDE.
--- NOTE | 2019-05-22 19:00 | NUR ---
REPORT RECEIVED, RECEIVED PATIENT IN BED, AWAKE ALERT AND ORIENTED X 4. ON BIPAP. MONITORS CONNECTED TO PATIENT WITH ALARMS SET. VSS. CALL LIGHT IN REACH AND ABLE TO UTILIZE TO MAKE NEEDS KNOWN.
--- NOTE | 2019-05-22 21:00 | NUR ---
AWAKE AND ALERT. FAMILY AT BEDSIDE. VSS. CALL LIGHT IN REACH
--- NOTE | 2019-05-22 23:00 | NUR ---
RESTING WITH EYES CLOSED, ROUSES EASILY. VSS. ON BIPAP
[2019-05-23] VITALS (14 sets, daily range): BP systolic 90–142; BP diastolic 37–57
--- NOTE | 2019-05-23 01:00 | NUR ---
RESTING WITH EYES CLOSED, ROUSES EASILY. ON BIPAP. CALL LIGHT IN REACH
--- NOTE | 2019-05-23 03:00 | NUR ---
REASSESSMENT COMPLETED PER FLOW SHEET WITH NO ACUTE DISTRESS OBSERVED. CALL LIGHT IN REACH.
--- NOTE | 2019-05-23 05:00 | NUR ---
AWAKE AND ALERT. VSS. CALL LIGHT IN REACH
[2019-05-23 05:24] LABS: BASOPHILS 0.1 % (0-2); EOSINOPHILS 3.4 % (0-7); HEMATOCRIT 25.2 % (36.0-48.0); HEMOGLOBIN 7.6 g/dL (12-16); IMMATURE GRANULOCYTES 0.9 % (0-5); LYMPHOCYTES 14.4 % (15-50); MCHC 30.2 g/dL (31.0-37.0); MONOCYTES 14.8 % (2-11); NEUTROPHILS 66.4 % (40-80); RBC 2.82 10x6/uL (4.00-5.40); RDW 18.1 % (11.5-14.5); WBC 9.4 10x3/uL (4.8-10.8)
[2019-05-23 05:30] LABS: MCV 89.4 fL (80.0-100.0); PLATELET COUNT 224 10x3/uL (130-400)
[2019-05-23 05:35] LABS: ANION GAP 9.7 mmol/L (8-16); CALCIUM 8.7 mg/dL (8.5-10.1); CARBON DIOXIDE 26.2 mmol/L (21.0-32.0); CREATININE - SERUM 1.4 mg/dL (0.6-1.3); POTASSIUM - SERUM 4.9 mmol/L (3.5-5.1)
--- NOTE | 2019-05-23 07:00 | NUR ---
AWAKES EASILY ON BIPAP 30%. NO DISTRESS. RIGHT SUBCLAVIAN CENTRAL LINE INFUSING WITH NS AT 75 ML HOUR, SITE WITHOUT DRAINAGE DRESSING INTACT. BALLARD CATH PATENT CLEAR RIO URINE. HEAD OF BED ELEVATED 30 DEGREES. MONITOR SR.
--- NOTE | 2019-05-23 08:00 | NUR ---
BIPAP OFF FOR BREAKFAST. ENCOURAGE TO FEED HERSELF. PULLED UP IN BED REPOSITIONED
--- NOTE | 2019-05-23 10:00 | NUR ---
ON BIPAP PATIENT STATES SHE IS STRUGGLING TO BREATH O2 SAT 93%.
--- NOTE | 2019-05-23 10:30 | NUR ---
PHYSICAL THERAPY HERE SAT ON SIDE OF BED WITH ASSISTANCES OF 2 NURSES AND PHYSICAL THERAPY. TOLERATED FAIR.
--- NOTE | 2019-05-23 10:45 | NUR ---
COMPLETE BED BATH WITH HIBCLENS. LINEN CHANGED. PATIENT TOLERATES TURNING VERY POORLY
--- NOTE | 2019-05-23 11:30 | NUR ---
REPORT CALLED TO JEF ZHENG TRANSFERED TO 2140 PER BED. DAUGHTER JEF CALLED LEFT MESSAGE ON PATIENT TRANSFER
--- NOTE | 2019-05-23 11:39 | NUR ---
ARRIVE TO ROOM FROM CVICU VIA BARIATRIC BED. ALERT AND ORIENTED X4. BIPAP BROUGHT TO ROOM. BALLARD FREE FROM KINKS DRAINING BY GRAVITY. O2 @ 3L HIGH FLOW NC. SCDs ON. IV INFUSING RT SUBCLAVIAN CVL NS @ 75mL/HR. CVL DATED 05/19/19. SWAB CAPS ON. DENIES ANY NEEDS AT THIS TIME. CONTINUE PLAN OF CARE AND SAFETY PRECAUTIONS.
--- NOTE | 2019-05-23 11:43 | NUR ---
CALLED CHEPE SUN DAUGHTER AND NOTIFIED HER OF PATIENT TRANSFER TO ROOM [id number]
--- NOTE | 2019-05-23 19:05 | NUR ---
REPORT RECEIVED, WILL CONTINUE POC. PATIENT IS AAO, BEDFAST. NO S/S OF DISTRESS OBSERVED, RR EVEN AND UNLABORED ON 3L O2 VIA NC. PATIENT DENIES NEEDS AT THIS TIME. CL IN REACH, BED LOCKED AND LOWERED. WILL CTM.
--- NOTE | 2019-05-23 23:10 | NUR ---
PATIENT C/O PAIN, PRN TYLENOL ADMINISTERED.
[2019-05-24] VITALS: BP 149/52
[2019-05-24 04:00] VITALS: BP 127/65
[2019-05-24 06:22] LABS: BASOPHILS 0 % (0-2); EOSINOPHILS 3.8 % (0-7); HEMATOCRIT 24.7 % (36.0-48.0); IMMATURE GRANULOCYTES 0.8 % (0-5); LYMPHOCYTES 14.7 % (15-50); MCH 26.9 pg (26.0-34.0); MCHC 29.6 g/dL (31.0-37.0); MCV 91.1 fL (80.0-100.0); MEAN PLATELET VOLUME 9.9 fL (7.4-10.4); MONOCYTES 12.2 % (2-11); NEUTROPHILS 68.5 % (40-80); PLATELET COUNT 250 10x3/uL (130-400); RBC 2.71 10x6/uL (4.00-5.40); RDW 18.3 % (11.5-14.5); WBC 9.2 10x3/uL (4.8-10.8)
[2019-05-24 06:24] LABS: ANION GAP 12.3 mmol/L (8-16); CALCIUM 8.6 mg/dL (8.5-10.1); CARBON DIOXIDE 24.2 mmol/L (21.0-32.0); CREATININE - SERUM 1.2 mg/dL (0.6-1.3); POTASSIUM - SERUM 4.5 mmol/L (3.5-5.1)
[2019-05-24 06:27] LABS: HEMOGLOBIN 7.3 g/dL (12-16)
--- NOTE | 2019-05-24 06:36 | NUR ---
CRITICAL RESULT RECEIVED FROM LAB. PAGED DOG HAIR CLIPPER SECURITIES ATTORNEY. AWAITING CALL BACK.
--- NOTE | 2019-05-24 06:44 | NUR ---
TOBY BETANCOURT CALLED BACK REGARDING PT CRITICAL LAB RESULT HGB 7.3, ORDERS RECEIVED.
--- NOTE | 2019-05-24 08:23 | NUR ---
PT LAYING DOWN. PULLED UP IN BED UPON REQUEST. RR EVEN AND UNLABORED. DENIES NEEDS OR PAIN AT THIS TIME. IV INFUSING TO RIGHT SUBCLAVIAN CENTRAL LINE NS @ 75. BED IN LOWEST POSITION. CALL LIGHT WITHIN REACH. WILL CONTINUE TO MONITOR.
[2019-05-24 08:27] VITALS: BP 152/48
[2019-05-24 13:04] VITALS: BP 140/53
--- NOTE | 2019-05-24 13:49 | NUR ---
OT NOTE: PT INITIALLY ON BIPAP IN BED; SLIGHTLY LETHARGIC. PT STATED THAT SHE WANTED TO TRY TO STAND UP AND GET OVER TO CHAIR. REQUIRED MOD ASSIST X 2 FOR BED MOB TO INCLUDE SUPINE TO SIT. BIPAP WAS REMOVED FOR THERAPY, AND REPLACED IWTH 02. PT SOB JUST SITTING ON EOB. ATTEMPTED A FEW UE AND LE AROM EXS WHILE SITTING ON EOB. FREQ REST BREAKS REQUIRED. PROVIDED PT WITH WALKER, HOWEVER, EVEN WITH MAX ASSIST X 2, PT WAS UNABLE TO STAND. DUE TO HEIGHT OF BED AND PTS SHORT STATURE, STANDING WILL BE DIFFICULTY THE BED IS TOO HIGH FOR HER TO SIT FROM STANDING POSITION. REQUIRED MAX ASSIST X 2 FOR SIT TO SUPINE AND POSITIONING BACK IN BED. ABLE TO PERFORM FACE WASHING AND FEEDING WITH SET UP. PT EXHIBITED INCREASED MOVEMENT IN R UE TODAY. SAÚL ESCAMILLA, OTR/L
--- NOTE | 2019-05-24 16:40 | NUR ---
OT NOTE: PT COMPLETED HAND/FACE HYGIENE WITH MIN A. PT EXHIBITS DECREASED SHOULDER FLEXION. PT COMPLETED UE AROM/AAROM AXS. THANK YOU, BLADIMIR MANCERA
[2019-05-24 17:19] VITALS: BP 152/48
--- NOTE | 2019-05-24 17:45 | NUR ---
BLOOD TRANSFUSING INITIATED BY MYSELF AND ALINA WU. VSS AT THIS TIME. WILL CONTINUE TO MONITOR.
--- NOTE | 2019-05-24 18:33 | NUR ---
I CONCUR WITH THE ASSESSMENT COMPLETED BY THE PARKING LINE PAINTER IN CHARGE OF THIS PATIENT TODAY.
--- NOTE | 2019-05-24 19:05 | NUR ---
EVENING ROUNDS COMPLETE. PT SITTING UP IN BED. CPAP ON AT THIS TIME. PT DENIES ANY NEEDS AT THIS TIME. CL IN REACH, BED IN LOWEST POSITION.
[2019-05-24 20:48] VITALS: BP 155/66
[2019-05-25 00:02] VITALS: BP 146/60
[2019-05-25 04:30] VITALS: BP 154/57
[2019-05-25 05:58] LABS: BASOPHILS 0.1 % (0-2); EOSINOPHILS 3.2 % (0-7); HEMATOCRIT 28.8 % (36.0-48.0); IMMATURE GRANULOCYTES 0.8 % (0-5); LYMPHOCYTES 12.6 % (15-50); MCH 28.1 pg (26.0-34.0); MCHC 30.9 g/dL (31.0-37.0); MCV 90.9 fL (80.0-100.0); MEAN PLATELET VOLUME 9.9 fL (7.4-10.4); MONOCYTES 12.2 % (2-11); NEUTROPHILS 71.1 % (40-80); PLATELET COUNT 246 10x3/uL (130-400); RBC 3.17 10x6/uL (4.00-5.40); RDW 17.1 % (11.5-14.5); WBC 10.4 10x3/uL (4.8-10.8)
[2019-05-25 06:15] LABS: HEMOGLOBIN 8.9 g/dL (12-16)
[2019-05-25 06:31] LABS: ANION GAP 10.1 mmol/L (8-16); CALCIUM 9.1 mg/dL (8.5-10.1); CARBON DIOXIDE 25.5 mmol/L (21.0-32.0); CREATININE - SERUM 1.1 mg/dL (0.6-1.3); POTASSIUM - SERUM 4.6 mmol/L (3.5-5.1)
--- NOTE | 2019-05-25 07:10 | NUR ---
PT RESTING. RR EVEN AND UNLABORED. PULLED UP IN BED AND REPOSITIONED TO COMFORT. REQUESTED CPAP BACK ON. RESPIRATORY CALLED. DENIES FURTHER NEEDS OR PAIN AT THIS TIME. BED IN LOWEST POSITION. CALL LIGHT WITHIN REACH. WILL CONTINUE TO MONITOR.
--- NOTE | 2019-05-25 11:40 | CN ---
PATIENT NAME:TROY HAYWOOD MEDICAL RECORD: [id number] : 57 LOCATION:D.M2 D.2140 ADMIT DATE: 05/14/19 ACCOUNT: [id number] CONSULTING PHYSICIAN: YESIKA ARROYO MD REFERRING PHYSICIAN: FABIO PINEDA MD DATE OF CONSULTATION: 05/15/2019 DIAGNOSES: 1. Non-Q-wave myocardial infarction. 2. Shortness of breath. 3. Respiratory failure. 4. Pulmonary edema. 5. Hypertension. 6. Paroxysmal atrial fibrillation. 7. Coumadin anticoagulation. 8. Morbid obesity. HISTORY OF PRESENT ILLNESS: Mrs. Haywood is a 402 pound female who presented to [facility] with chest pain and shortness of breath. Troponin was positive. The plan was to transfer her here. She then developed respiratory failure, requiring intubation and was transferred after that. She remains intubated today. Her chest x-ray is compatible with pulmonary edema. Troponin is mildly elevated. She has a cardiac history of hypertension and atrial fibrillation. No history of ischemic heart disease. PHYSICAL EXAMINATION: CONSTITUTIONAL/GENERAL APPEARANCE: Well nourished, well developed, appears stated age. EYES: Lids and conjunctivae noninjected. No discharge. No pallor. ENT: Lips within normal limit. No cyanosis. No pallor. NECK: Carotid arteries, bilateral normal upstroke. No bruits. No thrills. No jugular venous pressure or distention. CERVICAL LYMPH NODES: Nontender. Nonenlarged. THYROID: Not enlarged. No nodules. CARDIOVASCULAR: Precordial exam, nondisplaced. No heaves or pericardial thrills. Rate and rhythm, regular. Heart sounds, normal S1, normal S2. No S3, no gallop, no rub. Systolic murmur, not heard. Diastolic murmur, not heard. RESPIRATORY: Respiratory effort, unlabored. Normal curvature. No thoracic deformity. No chest wall tenderness. Percussion, resonant. Auscultation, clear. No wheezes, no rales, no rhonchi. ABDOMEN: Soft, nondistended, nontender. No abdominal pain, no vomiting and normal appetite. MUSCULOSKELETAL: No joint tenderness, normal gait, normal tone. SKIN: Warm and dry. OVERALL IMPRESSION: Non-Q-wave myocardial infarction with respiratory failure. At this time, we will treat medically to clear the respiratory failure, evaluate with echocardiogram for an ejection fraction, hold her Coumadin as she is in sinus rhythm. Plan for cardiac catheterization in the near future. TRANSINT:[id number] Voice Confirmation ID: [id number] DOCUMENT ID: [id number] CONSULT REPORT [id number] RTOY HAYWOOD JEFFREY MD at 1140 CC: [id number] DICTATION DATE: 05/15/19 1012 GAS LOAD DISPATCHER: 05/15/19 1047 ADM IN [place] [id number] [place] [id number]
--- NOTE | 2019-05-25 11:40 | OP ---
PATIENT NAME: TROY HAYWOOD MEDICAL RECORD: [id number] :57 LOCATION:D.M2 D.2140 ADMISSION DATE:05/14/19 SURGEON: YESIKA ARROYO MD DATE OF OPERATION: 05/18/2019 PROCEDURES: 1. PTCA stent LAD. 2. PTCA stent RCA. 3. Left heart catheterization. 4. Selective coronary angiography. 5. Left ventriculogram. INDICATION: Non-Q-wave myocardial infarction. PROCEDURE IN DETAIL: After informed consent was obtained and after a detailed description of the risks, benefits as well as alternative therapies, the patient elected to proceed with angiogram and angioplasty. The right brachial area was prepped and draped in normal sterile fashion. Right radial artery was cannulated via modified Seldinger technique with placement of 5-Egyptian sheath. All catheters exchanged through this sheath. FINDINGS: The left ventriculogram was performed in standard 30-degree MURO view reveals preserved cardiac wall motion, ejection fraction 50% to 55%. SELECTIVE CORONARY ANGIOGRAPHY: 1. Left main is with no significant angiographic disease. 2. Left anterior descending has 90% stenosis in the proximal vessel. 3. Left circumflex has moderate irregularities, but no flow-limiting stenosis. 4. Right coronary artery has 95% stenosis in the mid vessel. PTCA STENT OF THE LAD: The stent used was a 2.5 x 15 mm John. Result was 0% residual stenosis. PTCA STENT OF THE RCA: The stent used was 2.5 x 15 mm [place]. Result was 0% residual stenosis. OVERALL IMPRESSION: Successful PTCA stent of the LAD and RCA, both going from 90% to 95% initial stenosis to 0% residual. TRANSINT:[id number] Voice Confirmation ID: [id number] DOCUMENT ID: [id number] YESIKA ARROYO MD at 1140 CC: [id number] DICTATION DATE: 05/18/19 1218 MACHINE OPERATOR HAY STACKER: 05/18/19 1225 [place] [address]
--- NOTE | 2019-05-25 11:40 | EC ---
PATIENT:TROY HAYWOOD DATE OF SERVICE: 05/14/19 SEX: F MEDICAL RECORD: [id number] DATE OF : [birth year] LOCATION:D.M2 D.214 AGE OF PATIENT: 64 ADMISSION DATE: 05/14/19 REFERRING PHYSICIAN: INTERPRETING PHYSICIAN: YESIKA CHRISTIE MD ECHOCARDIOGRAM REPORT ECHO CHARGES 4 ECHO COMPLETE Date: 05/15/19 CLINICAL DIAGNOSIS: CHF/KS ECHOCARDIOGRAPHIC MEASUREMENTS (adult normal given) AC root (d.<3.7cm) 2.8 cm LV Septum d (<1.2 cm> 1.8 cm Valve Excursion 1.8 cm LV Septum (systole) 2.3 cm Left Atria (s.<4.0cm> 4.2 cm LVPW d(<1.2cm) 1.4 cm RV (d.<2.3cm) 3.0 cm LVPW (sytole) 2.0 cm LV diastole(<5.6CM) 5.7 cm MV E-F(>70mm/sec) cm LV systole 2.7 cm LVOT Diameter 2.1 cm MV exc.(>10mm) cm Est.ejection fraction (50-75%) % DOPPLER: LVIT cm/sec A 122 cm/sec E 103 cm/sec LA cm/sec RVSP 29.0 mmHg LVOT 148 cm/sec AOP1/2T m/s Asc. Ao 189 cm/sec RVOT 103 cm/sec RA cm/sec PA 131 cm/sec AV Gradient Peak 14.3 mmHg AV Mean 6.8 mmHg AV Area 3.2 cm MV Gradient Peak 7.1 mmHg MV Mean 2.8 mmHg MV Area cm COMMENTS: Admissions Representative: 1 ORQUIDEA [place] Plant Health Care Technician: 1 Dr. Christie TAPE# PACS Pericardial Effusion N DATE OF SERVICE: FINDINGS: 1. Left ventricular chamber size is upper limits of normal. Left systolic function is preserved at 55%. 2. Left atrium is enlarged at 4.2 cm. Right atrium and right ventricular chamber sizes are as well mildly dilated. 3. Valvular structures have normal structure and motion. 4. Doppler interrogation reveals no significant valvular insufficiency or stenosis. Pulmonary systolic pressure is normal, estimated 29 mmHg. ECHOCARDIOGRAM REPORT [id number] TROY HAYWOOD 5. No evidence of pericardial effusion or left ventricular thrombus. TRANSINT:[id number] Voice Confirmation ID: [id number] DOCUMENT ID: [id number] YESIKA CHRISTIE MD at 1140 CC: [id number] DICTATION DATE: 05/16/19 1011 PASSENGER RELATIONS REPRESENTATIVE: 05/16/19 1124 ADM IN [place] [id number] [place] [id number]
--- NOTE | 2019-05-25 11:41 | EC ---
PATIENT:TROY HAYWOOD DATE OF SERVICE: 05/14/19 SEX: F MEDICAL RECORD: [id number] DATE OF : [birth year] LOCATION:D.M2 D.214 AGE OF PATIENT: 64 ADMISSION DATE: 05/14/19 REFERRING PHYSICIAN: INTERPRETING PHYSICIAN: YESIKA CHRISTIE MD ECHOCARDIOGRAM REPORT ECHO CHARGES 5 ECHO LIMITED Date: 05/18/19 1 DOPPLER ECHO COLOR FLOW 2 DOPPLER ECHO PULSE CLINICAL DIAGNOSIS: S/P CATH ECHOCARDIOGRAPHIC MEASUREMENTS (adult normal given) AC root (d.<3.7cm) 0 cm LV Septum d (<1.2 cm> 0 cm Valve Excursion 0 cm LV Septum (systole) 0 cm Left Atria (s.<4.0cm> 0 cm LVPW d(<1.2cm) 0 cm RV (d.<2.3cm) 0 cm LVPW (sytole) 0 cm LV diastole(<5.6CM) 0 cm MV E-F(>70mm/sec) 0 cm LV systole 0 cm LVOT Diameter 0 cm MV exc.(>10mm) 0 cm Est.ejection fraction (50-75%) % DOPPLER: LVIT 0 cm/sec A 0 cm/sec E 0 cm/sec LA 0 cm/sec RVSP 0 mmHg LVOT 0 cm/sec AOP1/2T 0 m/s Asc. Ao 0 cm/sec RVOT 0 cm/sec RA 0 cm/sec PA 0 cm/sec AV Gradient Peak 0 mmHg AV Mean 0 mmHg AV Area 0 cm MV Gradient Peak 0 mmHg MV Mean 0 mmHg MV Area 0 cm COMMENTS: LIMITED STUDY (2-D,COLOR,DOPPLER) COMPLETE ECHO DONE ON 05/15/19 Director Pharmaceutical: 1 ORQUIDEA SAINIOE Skoog Machine Operator: 1 Dr. Christie TAPE# PACS Pericardial Effusion N DATE OF SERVICE: PROCEDURE: Limited echocardiogram. FINDINGS: 1. Left ventricular chamber size is within normal limits. Left ventricular systolic function is normal. Overall ejection fraction estimated at 60%. 2. No evidence of pericardial effusion. TRANSINT:[id number] Voice Confirmation ID: [id number] DOCUMENT ID: [id number] ECHOCARDIOGRAM REPORT [id number] CHASTITYYESIKA CORBETT MD at 0721 CC: [id number] DICTATION DATE: 05/19/19 1157 SCIENTIFIC LABORATORY SUPERVISOR: 05/19/19 1202 ADM IN [facility] [address] [place] [id number]
[2019-05-25 12:05] VITALS: BP 151/61
--- NOTE | 2019-05-25 14:04 | MORECARE ---
CASE MANAGEMENT DISCHARGE SUMMARY PATIENT: TROY HAYWOOD UNIT: [id number] ADM DATE: 05/14/19 AGE: 64 : 57 SEX: F ROOM/BED: D.2140 AUTHOR: DAYDAYDOC PHYSICIAN: REFERRING PHYSICIAN: FABIO PINEDA MD DATE OF SERVICE: 05/25/19 Discharge Plan Patient Name: TROY HAYWOOD Facility: [facility]:[place] : 1955 Planned Disposition: Home or Self Care Anticipated Discharge Date: Discharge Date: Expected LOS: Initial Reviewer: [email or web address] Initial Review Date: 05/19/2019 Generated: 05/25/19 3:04 pm DCP- Discharge Planning Updated by [email or web address]: Aleisha Monroe on 05/19/19 6:[address] Patient Name: TROY HAYWOOD Admission Status: ER Accout number: [id number] Admission Date: 05-14-2019 : 1955 Admission Diagnosis: Attending: FABIO PINEDA Current LOS: 5 Anticipated DC Date: Planned Disposition: Home or Self Care Primary Insurance: MEDICAID [place] Discharge Planning Comments: CM met with patient and daughter to complete initial dc planning assessment. Patient recently extubated earlier today. CM educated patient on the CM role and verbal consent given by patient to complete assessment. Patient lives at home with her two young grand-daughters where she is independent with her care. At discharge patient plans to return home and feels this is a safe discharge. CM discussed availability of home health, rehab services, and medical equipment. Patient has Home 02 and HH with unknown providers. CM will f/u with patient @ later date to see if she is able to give providers. Patient denied known discharge needs at this time. CM will continue to follow and will assist as needed with dc plans/needs. Ghost Writer: Aleisha Monroe DCPIA - Discharge Planning Initial Assessment Updated by [email or web address]: Aleisha Monroe on 05/19/19 7:29 pm * How many steps to enter\exit or inside your home? * PCP uncertain ? * Pharmacy [place] * Preadmission Environment Home with Family * ADLs Independent * Other Equipment HOME 02, WALKER, SCOOTER, BSC, SC * List name and contact numbers for known caregivers / representatives who currently or will assist patient after discharge: CHEPE SUN - DAUGHTER- [phone] * Verbal permission to speak to the caregivers and representatives has been obtained from the patient. Yes * Community resources currently utilized Home Health * Please name any agencies selected above. [facility] * Additional services required to return to the preadmission environment? No * Can the patient safely return to the preadmission environment? Yes * Has this patient been hospitalized within the prior 30 days at any hospital? No Last DP export: 05/21/19 8:37 Patient Name: TROY HAYWOOD Page [phone] at 1404 All edits/amendments must be made on the electronic document DICTATION DATE: 05/25/191403 BEVELER: MISHEL 05/25/191403 RPT#: [id number] DC DATE: STATUS: ADM IN [facility] [address] [place] [address] END OF REPORT
--- NOTE | 2019-05-25 14:43 | MORECARE ---
CASE MANAGEMENT DISCHARGE SUMMARY PATIENT: TROY HAYWOOD UNIT: [id number] ADM DATE: 05/14/19 AGE: 64 : 57 SEX: F ROOM/BED: D.1900 AUTHOR: IRON NAYLOR PHYSICIAN: REFERRING PHYSICIAN: FABIO PINEDA MD DATE OF SERVICE: 05/25/19 Discharge Plan Patient Name: TROY HAYWOOD Facility: [facility]:[place] : 1955 Planned Disposition: Home or Self Care Anticipated Discharge Date: Discharge Date: Expected LOS: Initial Reviewer: [id number] Initial Review Date: 05/19/2019 Generated: 05/25/19 3:43 pm Comments DCP- Discharge Planning Updated by [email or web address]: Brant Butt on 05/25/19 1:[address] Patient Name: TROY HAYWOOD Encounter No: [id number] : 1955 Primary Insurance: MEDICAID [place] Anticipated DC Date: Planned Disposition: Home HEALTH External Planned Provider: [facility] [employer] ON [employer], VISITING NURSES [facility] follow-up note: CM MET WITH PT IN ROOM TO DISCUSS DISCHARGE NEEDS AND PLANNING. CM DISCUSSED AVAILABILITY OF HOME HEALTH, REHAB SERVICES AND MEDICAL EQUIPMENT. PT REFUSES [facility] FACILITY PLACEMENT. PT STATES PLAN TO RETURN HOME. 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 PT WAS ABLE TO AMBULATE SMALL DISTANCES AND TRANSFER SELF FROM BED TO ELECTRIC WHEELCHAIR AT HOME. PT THINKS SHE IS GOING TO BE ABLE TO TRANSFER SELF TO GO BACK HOME. PT WANTS HOME HEALTH RESUMED TO GO HOME. CM EXPRESSED CONCERN OF PT'S CURRENT LEVEL OF FUNCTIONING AND RETURNING HOME. PT DENIES HAVING FRIENDS OR FAMILY TO ASSIST WITH HER CARE AT HOME BUT IS NOT GOING TO A PRISON. PT THINKS SHE WILL NEED AN AMBULANCE FOR TRANSPORT HOME HER ELECTRIC WHEELCHAIR IS THERE. CM EXPLAINED TO PT THAT SHE WILL NEED TO DEMONSTRATE WITH THERAPY THE ABILITY TO TRANSFER AND SIT IN CHAIR FOR DISCHARGE. PT STATED UNDRESTANDING. CHOICE FOR [facility] ON [facility] VISITING NURSES HOME HEALTH SIGNED. 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 PT REFUSED NURSING FACILITY PLACEMENT. PT WILL NEED TO DEMONSTRATE ABILITY TO TRANSFER AND SIT IN CHAIR FOR DISCHARGE SHE HAS ELECTRIC WHEELCHAIR AT HOME. CM TO ARRANGE HOME HEALTH RESUMPTION WITH [facility] ON [facility] VISITING NURSES AGENCY IN [place] FOR DISCHARGE HOME. CM TO CONTINUE TO FOLLOW AND ASSIST NEEDED. Brant Butt, CASE MANAGEMENT DCP- Discharge Planning Updated by [id number]: Aleisha Monroe on 05/19/19 6:[address] Patient Name: TROY HAYWOOD Admission Status: ER Accout number: [id number] Admission Date: 05-14-2019 : 1955 Admission Diagnosis: Attending: FABIO PINEDA Current LOS: 5 Anticipated DC Date: Planned Disposition: Home or Self Care Primary Insurance: MEDICAID [place] Discharge Planning Comments: CM met with patient and daughter to complete initial dc planning assessment. Patient recently extubated earlier today. CM educated patient on the CM role and verbal consent given by patient to complete assessment. Patient lives at home with her two young grand-daughters where she is independent with her care. At discharge patient plans to return home and feels this is a safe discharge. CM discussed availability of home health, rehab services, and medical equipment. Patient has Home 02 and HH with unknown providers. CM will f/u with patient @ later date to see if she is able to give providers. Patient denied known discharge needs at this time. CM will continue to follow and will assist as needed with dc plans/needs. Parachute Panel Joiner: Aleisha Monroe DCPIA - Discharge Planning Initial Assessment Updated by [id number]: Aleisha Monroe on 05/19/19 7:29 pm * How many steps to enter\exit or inside your home? * PCP uncertain ? * Pharmacy [facility] * Preadmission Environment Home with Family * ADLs Independent * Other Equipment HOME 02, WALKER, SCOOTER, BSC, SC * List name and contact numbers for known caregivers / representatives who currently or will assist patient after discharge: CHEPE SUN - DAUGHTER- [phone] * Verbal permission to speak to the caregivers and representatives has been obtained from the patient. Yes * Community resources currently utilized Home Health * Please name any agencies selected above. [facility] * Additional services required to return to the preadmission environment? No * Can the patient safely return to the preadmission environment? Yes * Has this patient been hospitalized within the prior 30 days at any hospital? No Coverage Notice Reviewer: [id number] - Brant Butt Notice Issued Date-Time: 05/25/2019 14:05 Notice Type: Patient Choice Letter Notice Delivered To: Patient Relationship to Patient: Air Pollution Compliance Inspector Name: Delivery Method: HAND - Hand Delivered Marry Days: Prior Verbal Notification: Recipient Understood Notice: Yes Recipient Signature: Yes Med Rec Note Co-signed by Attending: Coverage Notice Comment: AAA- VISITING NURSES [facility] ([facility]) Last DP export: 05/25/19 1:04 Patient Name: TROY HAYWOOD Page 43960 at 1443 All edits/amendments must be made on the electronic document DICTATION DATE: 05/25/19 1443 MOUNTER SOUSAPHONES: MISHEL 05/25/19 1443 RPT#: [id number] DC DATE: STATUS: ADM IN [facility] [address] [place] [address] END OF REPORT
--- NOTE | 2019-05-25 14:59 | NUR ---
Nutrition Follow-up: Good PO intake. Mechanical Soft (chopped meats with gravy) per ST. Diet: Renal, Mechanical Soft (Chopped Meats with Gravy) PO intake: 75-100% Wt: 453# Last BM: 05/19 per chart Labs noted: Na 146 Meds noted: NS @ 75 -Rec cardiac diet. -May consider stool softener. -RD following.
[2019-05-25 16:00] VITALS: BP 177/75
--- NOTE | 2019-05-25 19:35 | NUR ---
AROUSES EASILY WITH BYPAP IN PLACE PT ASKED FOR AND WAS TURNED CL IS INTACT AND COVERED WITH OPSITE CALL LIGHT IS IN REACH
[2019-05-25 20:00] VITALS: BP 133/57
[2019-05-26] VITALS: BP 141/57
[2019-05-26 04:00] VITALS: BP 149/54
[2019-05-26 05:18] LABS: BASOPHILS 0.1 % (0-2); EOSINOPHILS 3.3 % (0-7); HEMATOCRIT 29.7 % (36.0-48.0); HEMOGLOBIN 8.8 g/dL (12-16); IMMATURE GRANULOCYTES 0.5 % (0-5); MCH 27.2 pg (26.0-34.0); MCHC 29.6 g/dL (31.0-37.0); MEAN PLATELET VOLUME 9.9 fL (7.4-10.4); MONOCYTES 11.9 % (2-11); NEUTROPHILS 72.2 % (40-80); PLATELET COUNT 253 10x3/uL (130-400); RBC 3.23 10x6/uL (4.00-5.40); RDW 17.5 % (11.5-14.5); WBC 9.6 10x3/uL (4.8-10.8)
[2019-05-26 05:58] LABS: ANION GAP 13.4 mmol/L (8-16); CALCIUM 8.9 mg/dL (8.5-10.1); CREATININE - SERUM 1.1 mg/dL (0.6-1.3); POTASSIUM - SERUM 4.4 mmol/L (3.5-5.1)
[2019-05-26 09:00] VITALS: BP 151/67
--- NOTE | 2019-05-26 10:32 | NUR ---
PATIENT IS LAYING ON HER BACK IN BED. SHE HAS NS AT [facility] GOING INTO HER RIGHT [place]CLAV[place] CENTRAL LINE. SHE JUST HAD A BREATHING TREATMENT AND REQUESTED TO HAVE HER CPAP PUT BACK ON.
[2019-05-26 13:01] VITALS: BP 163/76
--- NOTE | 2019-05-26 14:34 | MORECARE ---
CASE MANAGEMENT DISCHARGE SUMMARY PATIENT: TROY HAYWOOD UNIT: [id number] ADM DATE: 05/14/19 AGE: 64 : 57 SEX: F ROOM/BED: D.5266 AUTHOR: IRON NAYLOR PHYSICIAN: REFERRING PHYSICIAN: FABIO PINEDA MD DATE OF SERVICE: 05/26/19 Discharge Plan Patient Name: TROY HAYWOOD Facility: [facility]:[place] : 1955 Planned Disposition: Inpatient Rehab Anticipated Discharge Date: Discharge Date: Expected LOS: Initial Reviewer: [id number] Initial Review Date: 05/19/2019 Generated: 05/26/19 3:33 pm Comments DCP- Discharge Planning Updated by [id number]: Brant Butt on 05/25/19 1:[address] Patient Name: TROY HAYWOOD Encounter No: [id number] : 1955 Primary Insurance: MEDICAID [place] Anticipated DC Date: Planned Disposition: Home HEALTH External Planned Provider: [facility] [employer] ON [employer], VISITING NURSES [facility] follow-up note: CM MET WITH PT IN ROOM TO DISCUSS DISCHARGE NEEDS AND PLANNING. CM DISCUSSED AVAILABILITY OF HOME HEALTH, REHAB SERVICES AND MEDICAL EQUIPMENT. PT REFUSES LONGTERM FACILITY PLACEMENT. PT STATES PLAN TO RETURN HOME. 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 PT WAS ABLE TO AMBULATE SMALL DISTANCES AND TRANSFER SELF FROM BED TO ELECTRIC WHEELCHAIR AT HOME. PT THINKS SHE IS GOING TO BE ABLE TO TRANSFER SELF TO GO BACK HOME. PT WANTS HOME HEALTH RESUMED TO GO HOME. CM EXPRESSED CONCERN OF PT'S CURRENT LEVEL OF FUNCTIONING AND RETURNING HOME. PT DENIES HAVING FRIENDS OR FAMILY TO ASSIST WITH HER CARE AT HOME BUT IS NOT GOING TO A DETENTION. PT THINKS SHE WILL NEED AN AMBULANCE FOR TRANSPORT HOME HER ELECTRIC WHEELCHAIR IS THERE. CM EXPLAINED TO PT THAT SHE WILL NEED TO DEMONSTRATE WITH THERAPY THE ABILITY TO TRANSFER AND SIT IN CHAIR FOR DISCHARGE. PT STATED UNDRESTANDING. CHOICE FOR [facility] ON [facility] VISITING NURSES HOME HEALTH SIGNED. 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 PT REFUSED NURSING FACILITY PLACEMENT. PT WILL NEED TO DEMONSTRATE ABILITY TO TRANSFER AND SIT IN CHAIR FOR DISCHARGE SHE HAS ELECTRIC WHEELCHAIR AT HOME. CM TO ARRANGE HOME HEALTH RESUMPTION WITH [facility] ON AGING VISITING NURSES AGENCY IN [place] FOR DISCHARGE HOME. CM TO CONTINUE TO FOLLOW AND ASSIST NEEDED. Brant Butt, CASE MANAGEMENT DCP- Discharge Planning Updated by [id number]: Aleisha Monroe on 05/19/19 6:[address] Patient Name: TROY HAYWOOD Admission Status: ER Accout number: [id number] Admission Date: 05-14-2019 : 1955 Admission Diagnosis: Attending: FABIO PINEDA Current LOS: 5 Anticipated DC Date: Planned Disposition: Home or Self Care Primary Insurance: MEDICAID [place] Discharge Planning Comments: CM met with patient and daughter to complete initial dc planning assessment. Patient recently extubated earlier today. CM educated patient on the CM role and verbal consent given by patient to complete assessment. Patient lives at home with her two young grand-daughters where she is independent with her care. At discharge patient plans to return home and feels this is a safe discharge. CM discussed availability of home health, rehab services, and medical equipment. Patient has Home 02 and HH with unknown providers. CM will f/u with patient @ later date to see if she is able to give providers. Patient denied known discharge needs at this time. CM will continue to follow and will assist as needed with dc plans/needs. Automat Car Attendant: Aleisha Monroe DCPIA - Discharge Planning Initial Assessment Updated by [email or web address]: Aleisha Monroe on 05/19/19 7:29 pm * How many steps to enter\exit or inside your home? * PCP uncertain ? * Pharmacy [facility] * Preadmission Environment Home with Family * ADLs Independent * Other Equipment HOME 02, WALKER, SCOOTER, BSC, SC * List name and contact numbers for known caregivers / representatives who currently or will assist patient after discharge: CHEPE SUN - DAUGHTER- [phone] * Verbal permission to speak to the caregivers and representatives has been obtained from the patient. Yes * Community resources currently utilized Home Health * Please name any agencies selected above. [facility] * Additional services required to return to the preadmission environment? No * Can the patient safely return to the preadmission environment? Yes * Has this patient been hospitalized within the prior 30 days at any hospital? No External Providers External Provider: [facility] Next Contact Date: 05/26/2019 Service Request Date: Service Type: Resolution: Reviewer: Comments: Coverage Notice Reviewer: [id number] - Brant Butt Notice Issued Date-Time: 05/25/2019 14:05 Notice Type: Patient Choice Letter Notice Delivered To: Patient Relationship to Patient: Enrollment Coordinator Name: Delivery Method: HAND - Hand Delivered Marry Days: Prior Verbal Notification: Recipient Understood Notice: Yes Recipient Signature: Yes Med Rec Note Co-signed by Attending: Coverage Notice Comment: AAA- VISITING NURSES [facility] ([facility]) Last DP export: 05/25/19 1:43 Patient Name: TROY HAYWOOD Page 81537 at 1434 All edits/amendments must be made on the electronic document DICTATION DATE: 05/26/191432 HUMAN INTELLIGENCE: MISHEL 05/26/191432 RPT#: [id number] DC DATE: STATUS: ADM IN [facility] [address] [place] [address] END OF REPORT
--- NOTE | 2019-05-26 14:45 | MORECARE ---
CASE MANAGEMENT DISCHARGE SUMMARY PATIENT: TROY HAYWOOD UNIT: [id number] ADM DATE: 05/14/19 AGE: 64 : 57 SEX: F ROOM/BED: D.3490 AUTHOR: IRON NAYLOR PHYSICIAN: REFERRING PHYSICIAN: FABIO PINEDA MD DATE OF SERVICE: 05/26/19 Discharge Plan Patient Name: TROY HAYWOOD Facility: [facility]:[place] : 1955 Planned Disposition: Inpatient Rehab Anticipated Discharge Date: Discharge Date: Expected LOS: Initial Reviewer: [email or web address] Initial Review Date: 05/19/2019 Generated: 05/26/19 3:44 pm Comments DCP- Discharge Planning Updated by [id number]: Brant Butt on 05/26/19 1:[address] Patient Name: TROY HAYWOOD Encounter No: [id number] : 1955 Primary Insurance: MEDICAID [place] Anticipated DC Date: Planned Disposition: Inpatient Rehab External Planned Provider: [facility] DCP follow-up note: CM SPOKE TO PT'S DAUGHTER VIA PHONE, HOUSTON GERMAINBLOOD, . CM OBTAINED PERMISSION FROM PT TO DISCUSS CARE, TREATMENT AND DISCHARGE PLANNING WITH [place]. [place]ON INFORMED CM THAT PT WAS IN REHAB AT [facility] LAST YEAR AND THEY WANT REFERRED TO [facility] AGAIN. CM DISCUSSED PT'S VERY LOW LEVEL OF PHYSICAL CONDITIONING. PT'S DAUGHTER FEELS THAT PT CAN PARTICIPATE WITH THERAPY WITH GOAL TO RETURN HOME PREVIOUS WITH ABILITY TO TRANSFER TO ELECTRIC SCOOTER AND HOME HEALTH FOR CONTINUED HOME SERVICES. HOUSTON VERIFIED THAT PT HAS NO ADULTS ABLE TO LIVE WITH AND ASSIST PT AT HOME AT THIS TIME. HOUSTON ASKED ABOUT [facility] REHAB SERVICES THAT MAY TAKE PT AT NO COSTS DUE TO INCOME. CM INFORMED HOUSTON THAT CM WAS NOT FAMILIAR WITH ANY OF THESE PROGRAMS. HOUSTON WOULD LIKE TO HAVE PT EVALUATED FOR REHAB AT [facility] PRIOR TO ANY CONSIDERATION OF [facility] PLACEMENT PT WILL NOT GET THERAPY THERE. CM SPOKE TO PT WHO IS IN AGREEMENT WITH PLAN. Brant Butt DCP- Discharge Planning Updated by [email or web address]: Brant Butt on 05/25/19 1:[address] Patient Name: TROY HAYWOOD Encounter No: [id number] : 1955 Primary Insurance: MEDICAID [place] Anticipated DC Date: Planned Disposition: Home HEALTH External Planned Provider: [facility], VISITING NURSES [facility] follow-up note: CM MET WITH PT IN ROOM TO DISCUSS DISCHARGE NEEDS AND PLANNING. CM DISCUSSED AVAILABILITY OF HOME HEALTH, REHAB SERVICES AND MEDICAL EQUIPMENT. PT REFUSES ASSISTED FACILITY PLACEMENT. PT STATES PLAN TO RETURN HOME. 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 PT WAS ABLE TO AMBULATE SMALL DISTANCES AND TRANSFER SELF FROM BED TO ELECTRIC WHEELCHAIR AT HOME. PT THINKS SHE IS GOING TO BE ABLE TO TRANSFER SELF TO GO BACK HOME. PT WANTS HOME HEALTH RESUMED TO GO HOME. CM EXPRESSED CONCERN OF PT'S CURRENT LEVEL OF FUNCTIONING AND RETURNING HOME. PT DENIES HAVING FRIENDS OR FAMILY TO ASSIST WITH HER CARE AT HOME BUT IS NOT GOING TO A [facility]. PT THINKS SHE WILL NEED AN AMBULANCE FOR TRANSPORT HOME HER ELECTRIC WHEELCHAIR IS THERE. CM EXPLAINED TO PT THAT SHE WILL NEED TO DEMONSTRATE WITH THERAPY THE ABILITY TO TRANSFER AND SIT IN CHAIR FOR DISCHARGE. PT STATED UNDRESTANDING. CHOICE FOR [facility] VISITING NURSES HOME HEALTH SIGNED. 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 PT REFUSED NURSING FACILITY PLACEMENT. PT WILL NEED TO DEMONSTRATE ABILITY TO TRANSFER AND SIT IN CHAIR FOR DISCHARGE SHE HAS ELECTRIC WHEELCHAIR AT HOME. CM TO ARRANGE HOME HEALTH RESUMPTION WITH [facility] VISITING NURSES [place] IN [place] FOR DISCHARGE HOME. CM TO CONTINUE TO FOLLOW AND ASSIST NEEDED. Brant Butt, CASE MANAGEMENT DCP- Discharge Planning Updated by [id number]: Aleisha Monroe on 05/19/19 6:[address] Patient Name: TROY HAYWOOD Admission Status: ER Accout number: [id number] Admission Date: 05-14-2019 : 1955 Admission Diagnosis: Attending: FABIO PINEDA Current LOS: 5 Anticipated DC Date: Planned Disposition: Home or Self Care Primary Insurance: MEDICAID [place] Discharge Planning Comments: CM met with patient and daughter to complete initial dc planning assessment. Patient recently extubated earlier today. CM educated patient on the CM role and verbal consent given by patient to complete assessment. Patient lives at home with her two young grand-daughters where she is independent with her care. At discharge patient plans to return home and feels this is a safe discharge. CM discussed availability of home health, rehab services, and medical equipment. Patient has Home 02 and HH with unknown providers. CM will f/u with patient @ later date to see if she is able to give providers. Patient denied known discharge needs at this time. CM will continue to follow and will assist as needed with dc plans/needs. Sand Conditioner: Aleisha Monroe DCPIA - Discharge Planning Initial Assessment Updated by [id number]: Aleisha Monroe on 05/19/19 7:29 pm * How many steps to enter\exit or inside your home? * PCP uncertain ? * Pharmacy [place] * Preadmission Environment Home with Family * ADLs Independent * Other Equipment HOME 02, WALKER, SCOOTER, BSC, SC * List name and contact numbers for known caregivers / representatives who currently or will assist patient after discharge: CHEPE SUN - DAUGHTER- [phone] * Verbal permission to speak to the caregivers and representatives has been obtained from the patient. Yes * Community resources currently utilized Home Health * Please name any agencies selected above. [facility] * Additional services required to return to the preadmission environment? No * Can the patient safely return to the preadmission environment? Yes * Has this patient been hospitalized within the prior 30 days at any hospital? No Coverage Notice Reviewer: [id number] - Brant Butt Notice Issued Date-Time: 05/25/2019 14:05 Notice Type: Patient Choice Letter Notice Delivered To: Patient Relationship to Patient: Junction Maker Name: Delivery Method: HAND - Hand Delivered Marry Days: Prior Verbal Notification: Recipient Understood Notice: Yes Recipient Signature: Yes Med Rec Note Co-signed by Attending: Coverage Notice Comment: AAA- VISITING NURSES [facility] ([facility]) Last DP export: 05/26/19 1:34 Patient Name: TROY HAYWOOD Page 97114 at 1445 All edits/amendments must be made on the electronic document DICTATION DATE: 05/26/191443 SITE INSPECTOR: MISHEL 05/26/191443 RPT#: [id number] DC DATE: STATUS: ADM IN [facility] [address] [place] [address] END OF REPORT
--- NOTE | 2019-05-26 15:32 | MORECARE ---
CASE MANAGEMENT DISCHARGE SUMMARY PATIENT: TROY HAYWOOD UNIT: [id number] ADM DATE: 05/14/19 AGE: 64 : 57 SEX: F ROOM/BED: D.2140 AUTHOR: IRON NAYLOR PHYSICIAN: REFERRING PHYSICIAN: FABIO PINEDA MD DATE OF SERVICE: 05/26/19 Discharge Plan Patient Name: TROY HAYWOOD Facility: [facility]:[place] : 1955 Planned Disposition: Inpatient Rehab Anticipated Discharge Date: Discharge Date: Expected LOS: Initial Reviewer: [id number] Initial Review Date: 05/19/2019 Generated: 05/26/19 4:31 pm Comments DCP- Discharge Planning Updated by [email or web address]: Brant Butt on 05/26/19 2:[address] Patient Name: TROY HAYWOOD Encounter No: [id number] : 1955 Primary Insurance: MEDICAID [place] Anticipated DC Date: Planned Disposition: Inpatient Rehab External Planned Provider: [facility] DCP follow-up note: CHRISTOPHER SPOKE TO PT'S DAUGHTER VIA PHONE, HOUSTON NAOMI, . CHRISTOPHER OBTAINED PERMISSION FROM PT TO DISCUSS CARE, TREATMENT AND DISCHARGE PLANNING WITH HOUSTON. HOUSTON INFORMED CM THAT PT WAS IN REHAB AT [facility] LAST YEAR AND THEY WANT REFERRED TO [facility] AGAIN. CHRISTOPHER DISCUSSED PT'S VERY LOW LEVEL OF PHYSICAL CONDITIONING. PT'S DAUGHTER FEELS THAT PT CAN PARTICIPATE WITH THERAPY WITH GOAL TO RETURN HOME PREVIOUS WITH ABILITY TO TRANSFER TO ELECTRIC SCOOTER AND HOME HEALTH FOR CONTINUED HOME SERVICES. HOUSTON VERIFIED THAT PT HAS NO ADULTS ABLE TO LIVE WITH AND ASSIST PT AT HOME AT THIS TIME. HOUSTON ASKED ABOUT [facility] REHAB SERVICES THAT MAY TAKE PT AT NO COSTS DUE TO INCOME. CHRISTOPHER INFORMED HOUSTON THAT CM WAS NOT FAMILIAR WITH ANY OF THESE PROGRAMS. HOUSTON WOULD LIKE TO HAVE PT EVALUATED FOR REHAB AT [facility] PRIOR TO ANY CONSIDERATION OF RESIDENTIAL PLACEMENT PT WILL NOT GET THERAPY THERE. CHRISTOPHER SPOKE TO PT WHO IS IN AGREEMENT WITH PLAN. CM CALLED [facility], , NOTIFIED OF REHAB REQUEST; PT HAS ONLY 24 ACUTE DAYS THAT STARTED IN JANUARY, IT DEPENDS ON HOW MANY HAVE BEEN ALREADY USED, PT'S CONDITION AND NEEDS THAT WOULD HAVE TO BE MET IN THE REMAINING DAYS THAT PT HAS TO USE FOR REHAB . CM FAXED REFERRALINFORMATION TO [facility] WITH CURRENT MAR AT [phone]. CM WAITING ADMISSION DETERMINATION FROM [facility] IN [place]. Brant Butt, CASE MANAGEMENT Appended by Brant Butt on 05/26/2019 15:24 CDT: CM MET WITH PT, GRANDDAUGHTER, DAUGHTER HOUSTON VIA PHONE WITH CM CARPENTERS HELPER, UNIT NURSE OVERAGE SHORTAGE AND DAMAGE CLERK, REPIRATORY THERAPIST AND CARPENTERS HELPER OF THERAPY SERVICES REGARDING DISCHARGE PLANNING. CONCERNS OF PT'S PLAN TO GO HOME IN CURRENT CONDITION DISCUSSED. PT AND DAUGHTER HAVE ALREAD[facility], CM HAS SENT IT AND WAITING DETERMINATION. PLAN "B" WAS AGREED TO BE NURSING FACILITY IF NOT ACCEPTED TO [facility] AND THAT CM WOULD ATTEMPT TO FIND ONE THAT MAY DONATE REHAB SERVICES. PT'S DAUGHTER IS RESEARCHING [facility]. CM WAITING ADMISSION DETERMINATION FROM [facility] IN [place]. Brant Butt, CASE MANAGEMENT DCP- Discharge Planning Updated by [id number]: Brant Butt on 05/25/19 1:[address] Patient Name: TROY HAYWOOD Encounter No: [id number] : 1955 Primary Insurance: MEDICAID [facility] Date: Planned Disposition: Home HEALTH External Planned Provider: [facility], VISITING NURSES [facility] DC follow-up note: CM MET WITH PT IN ROOM TO DISCUSS DISCHARGE NEEDS AND PLANNING. CM DISCUSSED AVAILABILITY OF HOME HEALTH, REHAB SERVICES AND MEDICAL EQUIPMENT. PT REFUSES SNF FACILITY PLACEMENT. PT STATES PLAN TO RETURN HOME. 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 PT WAS ABLE TO AMBULATE SMALL DISTANCES AND TRANSFER SELF FROM BED TO ELECTRIC WHEELCHAIR AT HOME. PT THINKS SHE IS GOING TO BE ABLE TO TRANSFER SELF TO GO BACK HOME. PT WANTS HOME HEALTH RESUMED TO GO HOME. CM EXPRESSED CONCERN OF PT'S CURRENT LEVEL OF FUNCTIONING AND RETURNING HOME. PT DENIES HAVING FRIENDS OR FAMILY TO ASSIST WITH HER CARE AT HOME BUT IS NOT GOING TO A RESIDENTIAL. PT THINKS SHE WILL NEED AN AMBULANCE FOR TRANSPORT HOME HER ELECTRIC WHEELCHAIR IS THERE. CM EXPLAINED TO PT THAT SHE WILL NEED TO DEMONSTRATE WITH THERAPY THE ABILITY TO TRANSFER AND SIT IN CHAIR FOR DISCHARGE. PT STATED UNDRESTANDING. CHOICE FOR [facility] VISITING NURSES HOME HEALTH SIGNED. 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 PT REFUSED NURSING FACILITY PLACEMENT. PT WILL NEED TO DEMONSTRATE ABILITY TO TRANSFER AND SIT IN CHAIR FOR DISCHARGE SHE HAS ELECTRIC WHEELCHAIR AT HOME. CM TO ARRANGE HOME HEALTH RESUMPTION WITH [facility] VISITING NURSES AGENCY IN [place] FOR DISCHARGE HOME. CM TO CONTINUE TO FOLLOW AND ASSIST NEEDED. Brant Butt, CASE MANAGEMENT DCP- Discharge Planning Updated by [id number]: Aleisha Monroe on 05/19/19 6:[address] Patient Name: TROY HAYWOOD Admission Status: ER Accout number: [id number] Admission Date: 05-14-2019 : 1955 Admission Diagnosis: Attending: FABIO PINEDA Current LOS: 5 Anticipated DC Date: Planned Disposition: Home or Self Care Primary Insurance: MEDICAID [place] Discharge Planning Comments: CM met with patient and daughter to complete initial dc planning assessment. Patient recently extubated earlier today. CM educated patient on the CM role and verbal consent given by patient to complete assessment. Patient lives at home with her two young grand-daughters where she is independent with her care. At discharge patient plans to return home and feels this is a safe discharge. CM discussed availability of home health, rehab services, and medical equipment. Patient has Home 02 and HH with unknown providers. CM will f/u with patient @ later date to see if she is able to give providers. Patient denied known discharge needs at this time. CM will continue to follow and will assist as needed with dc plans/needs. Business Office Director: Aleisha Monroe DCPIA - Discharge Planning Initial Assessment Updated by [email or web address]: Aleisha Monroe on 05/19/19 7:29 pm * How many steps to enter\\exit or inside your home? * PCP uncertain ? * Pharmacy [facility] * Preadmission Environment Home with Family * ADLs Independent * Other Equipment HOME 02, WALKER, SCOOTER, BSC, SC * List name and contact numbers for known caregivers / representatives who currently or will assist patient after discharge: CHEPE SUN - DAUGHTER- [phone] * Verbal permission to speak to the caregivers and representatives has been obtained from the patient. Yes * Community resources currently utilized Home Health * Please name any agencies selected above. [facility] * Additional services required to return to the preadmission environment? No * Can the patient safely return to the preadmission environment? Yes * Has this patient been hospitalized within the prior 30 days at any hospital? No Coverage Notice Reviewer: [id number] Josef Butt Notice Issued Date-Time: 05/25/2019 14:05 Notice Type: Patient Choice Letter Notice Delivered To: Patient Relationship to Patient: Superintendent Drilling And Production Name: Delivery Method: HAND - Hand Delivered Marry Days: Prior Verbal Notification: Recipient Understood Notice: Yes Recipient Signature: Yes Med Rec Note Co-signed by Attending: Coverage Notice Comment: AAA- VISITING NURSES [facility] ([facility]) Last DP export: 05/26/19 1:45 Patient Name: TROY HAYWOOD Page 56069 at 1532 All edits/amendments must be made on the electronic document DICTATION DATE: 05/26/19 153 CLOTH WASHER OPERATOR: MISHEL 05/26/19 153 RPT#: [id number] DC DATE: STATUS: ADM IN [facility] [address] [place] [address] END OF REPORT
--- NOTE | 2019-05-26 16:26 | MORECARE ---
CASE MANAGEMENT DISCHARGE SUMMARY PATIENT: TROY HAYWOOD UNIT: [id number] ADM DATE: 05/14/19 AGE: 64 : 57 SEX: F ROOM/BED: D.2140 AUTHOR: DAYDAY,DOC PHYSICIAN: REFERRING PHYSICIAN: FABIO PINEDA MD DATE OF SERVICE: 05/26/19 Discharge Plan Patient Name: TROY HAYWOOD Facility: [facility]:[place] : 1955 Planned Disposition: Inpatient Rehab Anticipated Discharge Date: Discharge Date: Expected LOS: Initial Reviewer: [id number] Initial Review Date: 05/19/2019 Generated: 05/26/19 5:26 pm Comments DCP- Discharge Planning Updated by [email or web address]: Jesica Cartagena on 05/26/19 3:[address] Patient requested Trapeze bar to allow her to sit up in hospital bed. CM spoke Dr. Lawson and obtained approval for Trapeze bar. CM notified Radha in materials management of request for Trapeze bar. CM completed and gave Radha the order form for the Trapeze bar. Trapeze bar will be delivered. CM notified patient's CM, Christiano Butt, on status of Trapeze bar. DCP- Discharge Planning Updated by [id number]: Brant Butt on 05/26/19 2:[address] Patient Name: TROY HAYWOOD Encounter No: [id number] : 1955 Primary Insurance: MEDICAID [place] Anticipated DC Date: Planned Disposition: Inpatient Rehab External Planned Provider: [facility] DCP follow-up note: CM SPOKE TO PT'S DAUGHTER VIA PHONE, HOUSTON SALGADO, . CM OBTAINED PERMISSION FROM PT TO DISCUSS CARE, TREATMENT AND DISCHARGE PLANNING WITH HOUSTON. HOUSTON INFORMED CM THAT PT WAS IN REHAB AT [facility] LAST YEAR AND THEY WANT REFERRED TO [facility] AGAIN. CM DISCUSSED PT'S VERY LOW LEVEL OF PHYSICAL CONDITIONING. PT'S DAUGHTER FEELS THAT PT CAN PARTICIPATE WITH THERAPY WITH GOAL TO RETURN HOME PREVIOUS WITH ABILITY TO TRANSFER TO [facility] AND HOME HEALTH FOR CONTINUED HOME SERVICES. HOUSTON VERIFIED THAT PT HAS NO ADULTS ABLE TO LIVE WITH AND ASSIST PT AT HOME AT THIS TIME. HOUSTON ASKED ABOUT [facility] THAT MAY TAKE PT AT NO COSTS DUE TO INCOME. CM INFORMED HOUSTON THAT CM WAS NOT FAMILIAR WITH ANY OF THESE PROGRAMS. HOUSTON WOULD LIKE TO HAVE PT EVALUATED FOR REHAB AT [facility] PRIOR TO ANY CONSIDERATION OF SNF PLACEMENT PT WILL NOT GET THERAPY THERE. CM SPOKE TO PT WHO IS IN AGREEMENT WITH PLAN. CM CALLED [facility], , NOTIFIED OF REHAB REQUEST; PT HAS ONLY 24 ACUTE DAYS THAT STARTED IN JANUARY, IT DEPENDS ON HOW MANY HAVE BEEN ALREADY USED, PT'S CONDITION AND NEEDS THAT WOULD HAVE TO BE MET IN THE REMAINING DAYS THAT PT HAS TO USE FOR REHAB . CM FAXED REFERRALINFORMATION TO [facility] WITH CURRENT MAR AT [phone]. CM WAITING ADMISSION DETERMINATION FROM [facility] IN [place]. Brant Butt, CASE MANAGEMENT Appended by Brant Butt on 05/26/2019 15:24 CDT: CM MET WITH PT, GRANDDAUGHTER, DAUGHTER HOUSTON VIA PHONE WITH CM DESIGN ENGINEERING MANAGER, UNIT NURSE ACCOUNT EXECUTIVE AGRIBUSINESS, REPIRATORY THERAPIST AND DESIGN ENGINEERING MANAGER OF THERAPY SERVICES REGARDING DISCHARGE PLANNING. CONCERNS OF PT'S PLAN TO GO HOME IN CURRENT CONDITION DISCUSSED. PT AND DAUGHTER HAVE ALREADY ASKED FOR REFERRAL TO [facility] REHAB, CM HAS SENT IT AND WAITING DETERMINATION. PLAN "B" WAS AGREED TO BE NURSING FACILITY IF NOT ACCEPTED TO [facility] AND THAT CM WOULD ATTEMPT TO FIND ONE THAT MAY DONATE REHAB SERVICES. PT'S DAUGHTER IS RESEARCHING [facility]DING FROM [facility] FOR REHAB SERVICES. CM WAITING ADMISSION DETERMINATION FROM [facility] IN [place]. Brant Butt, CASE MANAGEMENT DCP- Discharge Planning Updated by [id number]: Brant Butt on 05/25/19 1:[address] Patient Name: TROY HAYWOOD Encounter No: [id number] : 1955 Primary Insurance: MEDICAID [facility] Date: Planned Disposition: Home HEALTH External Planned Provider: [facility], [facility] follow-up note: CM MET WITH PT IN ROOM TO DISCUSS DISCHARGE NEEDS AND PLANNING. CM DISCUSSED AVAILABILITY OF HOME HEALTH, REHAB SERVICES AND MEDICAL EQUIPMENT. PT REFUSES LONG-TERM FACILITY PLACEMENT. PT STATES PLAN TO RETURN HOME. 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 PT WAS ABLE TO AMBULATE SMALL DISTANCES AND TRANSFER SELF FROM BED TO ELECTRIC WHEELCHAIR AT HOME. PT THINKS SHE IS GOING TO BE ABLE TO TRANSFER SELF TO GO BACK HOME. PT WANTS HOME HEALTH RESUMED TO GO HOME. CM EXPRESSED CONCERN OF PT'S CURRENT LEVEL OF FUNCTIONING AND RETURNING HOME. PT DENIES HAVING FRIENDS OR FAMILY TO ASSIST WITH HER CARE AT HOME BUT IS NOT GOING TO A SNF. PT THINKS SHE WILL NEED AN AMBULANCE FOR TRANSPORT HOME HER ELECTRIC WHEELCHAIR IS THERE. CM EXPLAINED TO PT THAT SHE WILL NEED TO DEMONSTRATE WITH THERAPY THE ABILITY TO TRANSFER AND SIT IN CHAIR FOR DISCHARGE. PT STATED UNDRESTANDING. CHOICE FOR [facility] ON [facility] VISITING NURSES HOME HEALTH SIGNED. 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 PT REFUSED NURSING FACILITY PLACEMENT. PT WILL NEED TO DEMONSTRATE ABILITY TO TRANSFER AND SIT IN CHAIR FOR DISCHARGE SHE HAS ELECTRIC WHEELCHAIR AT HOME. CM TO ARRANGE HOME HEALTH RESUMPTION WITH [facility] ON [facility] VISITING NURSES AGENCY IN [place] FOR DISCHARGE HOME. CM TO CONTINUE TO FOLLOW AND ASSIST NEEDED. Brant Butt, CASE MANAGEMENT DCP- Discharge Planning Updated by [id number]: Aleisha Monroe on 05/19/19 6:[address] Patient Name: TROY HAYWOOD Admission Status: ER Accout number: [id number] Admission Date: 05-14-2019 : 1955 Admission Diagnosis: Attending: FABIO PINEDA Current LOS: 5 Anticipated DC Date: Planned Disposition: Home or Self Care Primary Insurance: MEDICAID [place] Discharge Planning Comments: CM met with patient and daughter to complete initial dc planning assessment. Patient recently extubated earlier today. CM educated patient on the CM role and verbal consent given by patient to complete assessment. Patient lives at home with her two young grand-daughters where she is independent with her care. At discharge patient plans to return home and feels this is a safe discharge. CM discussed availability of home health, rehab services, and medical equipment. Patient has Home 02 and HH with unknown providers. CM will f/u with patient @ later date to see if she is able to give providers. Patient denied known discharge needs at this time. CM will continue to follow and will assist as needed with dc plans/needs. Tailercpa: Aleisha Monroe DCPIA - Discharge Planning Initial Assessment Updated by [email or web address]: Aleisha Monroe on 05/19/19 7:29 pm * How many steps to enter\\exit or inside your home? * PCP uncertain ? * Pharmacy [facility] * Preadmission Environment Home with Family * ADLs Independent * Other Equipment HOME 02, WALKER, SCJEREMYTER, BSC, SC * List name and contact numbers for known caregivers / representatives who currently or will assist patient after discharge: CHEPE SUN - DAUGHTER- [phone] * Verbal permission to speak to the caregivers and representatives has been obtained from the patient. Yes * Community resources currently utilized Home Health * Please name any agencies selected above. [facility] * Additional services required to return to the preadmission environment? No * Can the patient safely return to the preadmission environment? Yes * Has this patient been hospitalized within the prior 30 days at any hospital? No Coverage Notice Reviewer: [id number] Josef Butt Notice Issued Date-Time: 05/25/2019 14:05 Notice Type: Patient Choice Letter Notice Delivered To: Patient Relationship to Patient: Data Processing Equipment Repairer Name: Delivery Method: HAND - Hand Delivered Marry Days: Prior Verbal Notification: Recipient Understood Notice: Yes Recipient Signature: Yes Med Rec Note Co-signed by Attending: Coverage Notice Comment: AAA- VISITING NURSES [facility]) Last DP export: 05/26/19 2:32 Patient Name: TROY HAYWOOD Page [id number] at 1626 All edits/amendments must be made on the electronic document DICTATION DATE: 05/26/191625 MEDICAL IMAGING DIRECTOR: MISHEL 05/26/191625 RPT#: [id number] DC DATE: STATUS: ADM IN [facility] [address] [place] [address] END OF REPORT
--- NOTE | 2019-05-26 19:10 | NUR ---
EVENING ROUNDS COMPLETE. PT LAYING IN BED. FAMILY AT BEDSIDE. NO SIGNS OF DISTRESS. AAOX4. PT DENIES ANY NEEDS AT THIS TIME. CL IN REACH, BED IN LOWEST POSITION.
[2019-05-26 20:00] VITALS: BP 141/60
[2019-05-27] VITALS (7 sets, daily range): BP systolic 113–157; BP diastolic 49–75
[2019-05-27 04:23] LABS: BASOPHILS 0.1 % (0-2); EOSINOPHILS 3.1 % (0-7); HEMATOCRIT 30.1 % (36.0-48.0); IMMATURE GRANULOCYTES 0.2 % (0-5); LYMPHOCYTES 10.8 % (15-50); MCH 27.4 pg (26.0-34.0); MCHC 29.9 g/dL (31.0-37.0); MCV 91.8 fL (80.0-100.0); MEAN PLATELET VOLUME 9.9 fL (7.4-10.4); MONOCYTES 11.1 % (2-11); NEUTROPHILS 74.7 % (40-80); PLATELET COUNT 251 10x3/uL (130-400); RBC 3.28 10x6/uL (4.00-5.40); RDW 17.2 % (11.5-14.5); WBC 9.4 10x3/uL (4.8-10.8)
[2019-05-27 04:50] LABS: ANION GAP 9.4 mmol/L (8-16); CALCIUM 8.9 mg/dL (8.5-10.1); CARBON DIOXIDE 26.9 mmol/L (21.0-32.0); CREATININE - SERUM 1.1 mg/dL (0.6-1.3); POTASSIUM - SERUM 4.3 mmol/L (3.5-5.1)
--- NOTE | 2019-05-27 07:36 | MORECARE ---
CASE MANAGEMENT DISCHARGE SUMMARY PATIENT: TROY HAYWOOD UNIT: [id number] ADM DATE: 05/14/19 AGE: 64 : 57 SEX: F ROOM/BED: D.7260 AUTHOR: IRON NAYLOR PHYSICIAN: REFERRING PHYSICIAN: FABIO PINEDA MD DATE OF SERVICE: 05/27/19 Discharge Plan Patient Name: TROY HAYWOOD Facility: [facility]:[place] : 1955 Planned Disposition: Inpatient Rehab Anticipated Discharge Date: Discharge Date: Expected LOS: Initial Reviewer: [id number] Initial Review Date: 05/19/2019 Generated: 05/27/19 8:36 am Comments DCP- Discharge Planning Updated by [id number]: Brant Butt on 05/27/19 6:[address] Patient Name: TROY HAYWOOD Encounter No: [id number] : 1955 Primary Insurance: MEDICAID [place] Anticipated DC Date: Planned Disposition: Inpatient Rehab External Planned Provider: [facility] DCP follow-up note: CM FAXED REFERRAL UPDATE TO [facility] AT [phone]. CM WAITING ADMISSION DETERMINATION FROM [facility] IN [place]. Brant Butt, CASE MANAGEMENT DCP- Discharge Planning Updated by [id number]: Jesica Cartagena on 05/26/19 3:[address] Patient requested Trapeze bar to allow her to sit up in hospital bed. CM spoke Dr. Lawson and obtained approval for Trapeze bar. CM notified Radha in materials management of request for Trapeze bar. CM completed and gave Radha the order form for the Trapeze bar. Trapeze bar will be delivered. CM notified patient's CM, Christiano Butt, on status of Trapeze bar. DCP- Discharge Planning Updated by [id number]: Brant Butt on 05/26/19 2:[address] Patient Name: TROY HAYWOOD Encounter No: [id number] : 1955 Primary Insurance: MEDICAID [place] Anticipated DC Date: Planned Disposition: Inpatient Rehab External Planned Provider: [facility] DCP follow-up note: CM SPOKE TO PT'S DAUGHTER VIA PHONE, HOUSTON SALGADO, . CM OBTAINED PERMISSION FROM PT TO DISCUSS CARE, TREATMENT AND DISCHARGE PLANNING WITH HOUSTON. HOUSTON INFORMED CM THAT PT WAS IN REHAB AT [facility] LAST YEAR AND THEY WANT REFERRED TO [facility] AGAIN. CM DISCUSSED PT'S VERY LOW LEVEL OF PHYSICAL CONDITIONING. PT'S DAUGHTER FEELS THAT PT CAN PARTICIPATE WITH THERAPY WITH GOAL TO RETURN HOME PREVIOUS WITH ABILITY TO TRANSFER TO ELECTRIC SCOOTER AND HOME HEALTH FOR CONTINUED HOME SERVICES. HOUSTON VERIFIED THAT PT HAS NO ADULTS ABLE TO LIVE WITH AND ASSIST PT AT HOME AT THIS TIME. HOUSTON ASKED ABOUT [facility] REHAB SERVICES THAT MAY TAKE PT AT NO COSTS DUE TO INCOME. CM INFORMED HOUSTON THAT CM WAS NOT FAMILIAR WITH ANY OF THESE PROGRAMS. HOUSTON WOULD LIKE TO HAVE PT EVALUATED FOR REHAB AT [facility] PRIOR TO ANY CONSIDERATION OF LONG-TERM PLACEMENT PT WILL NOT GET THERAPY THERE. CM SPOKE TO PT WHO IS IN AGREEMENT WITH PLAN. CM CALLED [facility], , NOTIFIED OF REHAB REQUEST; PT HAS ONLY 24 ACUTE DAYS THAT STARTED IN JANUARY, IT DEPENDS ON HOW MANY HAVE BEEN ALREADY USED, PT'S CONDITION AND NEEDS THAT WOULD HAVE TO BE MET IN THE REMAINING DAYS THAT PT HAS TO USE FOR REHAB . CM FAXED REFERRALINFORMATION TO [facility] WITH CURRENT MAR AT [phone]. CM WAITING ADMISSION DETERMINATION FROM [facility] IN [place]. Brant Butt, CASE MANAGEMENT Appended by Brant Butt on 05/26/2019 15:24 CDT: CM MET WITH PT, GRANDDAUGHTER, DAUGHTER HOUSTON VIA PHONE WITH CM COOKIE BREAKER, UNIT NURSE NEUROUROLOGIST, REPIRATORY THERAPIST AND COOKIE BREAKER OF THERAPY SERVICES REGARDING DISCHARGE PLANNING. CONCERNS OF PT'S PLAN TO GO HOME IN CURRENT CONDITION DISCUSSED. PT AND DAUGHTER HAVE ALREAD[facility], CM HAS SENT IT AND WAITING DETERMINATION. PLAN "B" WAS AGREED TO BE NURSING FACILITY IF NOT ACCEPTED TO [facility] AND THAT CM WOULD ATTEMPT TO FIND ONE THAT MAY DONATE REHAB SERVICES. PT'S DAUGHTER IS RESEARCHING [employer] FROM [facility] FOR REHAB SERVICES. CM WAITING ADMISSION DETERMINATION FROM [facility] IN [place]. Brant Butt, CASE MANAGEMENT DCP- Discharge Planning Updated by [id number]: Brant Butt on 05/25/19 1:[address] Patient Name: TROY HAYWOOD Encounter No: [id number] : 1955 Primary Insurance: MEDICAID [place] Anticipated DC Date: Planned Disposition: Home HEALTH External Planned Provider: [facility], VISITING NURSES [facility] DCP follow-up note: CM MET WITH PT IN ROOM TO DISCUSS DISCHARGE NEEDS AND PLANNING. CM DISCUSSED AVAILABILITY OF HOME HEALTH, REHAB SERVICES AND MEDICAL EQUIPMENT. PT REFUSES LONG TERM FACILITY PLACEMENT. PT STATES PLAN TO RETURN HOME. 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 PT WAS ABLE TO AMBULATE SMALL DISTANCES AND TRANSFER SELF FROM BED TO ELECTRIC WHEELCHAIR AT HOME. PT THINKS SHE IS GOING TO BE ABLE TO TRANSFER SELF TO GO BACK HOME. PT WANTS HOME HEALTH RESUMED TO GO HOME. CM EXPRESSED CONCERN OF PT'S CURRENT LEVEL OF FUNCTIONING AND RETURNING HOME. PT DENIES HAVING FRIENDS OR FAMILY TO ASSIST WITH HER CARE AT HOME BUT IS NOT GOING TO A LONG-TERM. PT THINKS SHE WILL NEED AN AMBULANCE FOR TRANSPORT HOME HER ELECTRIC WHEELCHAIR IS THERE. CM EXPLAINED TO PT THAT SHE WILL NEED TO DEMONSTRATE WITH THERAPY THE ABILITY TO TRANSFER AND SIT IN CHAIR FOR DISCHARGE. PT STATED UNDRESTANDING. CHOICE FOR [facility] VISITING NURSES [facility] SIGNED. 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 PT REFUSED NURSING FACILITY PLACEMENT. PT WILL NEED TO DEMONSTRATE ABILITY TO TRANSFER AND SIT IN CHAIR FOR DISCHARGE SHE HAS ELECTRIC WHEELCHAIR AT HOME. CM TO ARRANGE HOME HEALTH RESUMPTION WITH [facility] VISITING NURSES [place] IN [place] FOR DISCHARGE HOME. CM TO CONTINUE TO FOLLOW AND ASSIST NEEDED. Brant Butt, CASE MANAGEMENT DCP- Discharge Planning Updated by [id number]: Aleisha Monroe on 05/19/19 6:[address] Patient Name: TROY HAYWOOD Admission Status: ER Accout number: [id number] Admission Date: 05-14-2019 : 1955 Admission Diagnosis: Attending: FABIO PINEDA Current LOS: 5 Anticipated DC Date: Planned Disposition: Home or Self Care Primary Insurance: MEDICAID [place] Discharge Planning Comments: CM met with patient and daughter to complete initial dc planning assessment. Patient recently extubated earlier today. CM educated patient on the CM role and verbal consent given by patient to complete assessment. Patient lives at home with her two young grand-daughters where she is independent with her care. At discharge patient plans to return home and feels this is a safe discharge. CM discussed availability of home health, rehab services, and medical equipment. Patient has Home 02 and HH with unknown providers. CM will f/u with patient @ later date to see if she is able to give providers. Patient denied known discharge needs at this time. CM will continue to follow and will assist as needed with dc plans/needs. Rig Mechanic: Aleisha Monroe DCPIA - Discharge Planning Initial Assessment Updated by [id number]: Aleisha Monroe on 05/19/19 7:29 pm * How many steps to enter\\exit or inside your home? * PCP uncertain ? * Pharm[facility] * Preadmission Environment Home with Family * ADLs Independent * Other Equipment HOME 02, WALKER, SCOOTER, BSC, SC * List name and contact numbers for known caregivers / representatives who currently or will assist patient after discharge: CHEPE SUN - DAUGHTER- [phone] * Verbal permission to speak to the caregivers and representatives has been obtained from the patient. Yes * Community resources currently utilized Home Health * Please name any agencies selected above. [facility] * Additional services required to return to the preadmission environment? No * Can the patient safely return to the preadmission environment? Yes * Has this patient been hospitalized within the prior 30 days at any hospital? No Coverage Notice Reviewer: [id number] Josef Butt Notice Issued Date-Time: 05/25/2019 14:05 Notice Type: Patient Choice Letter Notice Delivered To: Patient Relationship to Patient: Fish Header Name: Delivery Method: HAND - Hand Delivered Marry Days: Prior Verbal Notification: Recipient Understood Notice: Yes Recipient Signature: Yes Med Rec Note Co-signed by Attending: Coverage Notice Comment: AAA- VISITING NURSES VLADIMIR RODRIGUEZ ([facility]) Last DP export: 05/26/19 3:26 Patient Name: TROY HAYWOOD Page 67516 at 0736 All edits/amendments must be made on the electronic document DICTATION DATE: 05/27/19735 WELT BEATER: MISHEL 05/27/19735 RPT#: [id number] DC DATE: STATUS: ADM IN [facility] [address] [place] [address] END OF REPORT
--- NOTE | 2019-05-27 11:49 | NUR ---
OT NOTE: EXTENSIVE TIME SPENT WITH PT TODAY. REQUIRED ASSIST OF BOTH OT AND PT TO MOBILIZE PT. PRACTICED HAVING PT MOVE LEGS TOWARDS SIDE OF BED. EXTENSIVE TIME AND REST BREAKS REQUIRED. MAX ASSIST X 2 FOR SUPINE TO SIT. ONCE PT POSITIONED TO EOB, SHE WAS ABLE TO MAINTAIN STATIC SITTING BALANCE ON EOB FOR APPROX 20 MIN. DURING THIS TIME, ST IN FOR BS SWALLOW EVAL WHILE PT WAS SITTING UPRIGHT. PT LATER BEGAN COUGHING UP PHLEM AND BECAME VERY ANXIOUS SHE FELT LIKE SHE WAS CHOKING AND COULDNT BREATH. NURSING PROVIDED PT WITH TIM TO ASSIST. PERFORMED UE/LE AROM EXS WITH VERY MINIMAL SHOULDER MOVEMENT. FREQ REST BREAKS REQUIRED DURING ALL EXS. MIN ASSIST WITH LE DRESSING. ABLE TO APPLY DENTURES AND WASH FACE WITH SET UP. . UNABLE TO BRUSH HAIR SHE COULD NOT GET HER ARMS OVER HEAD. BACK TO BED WITH MAX ASSIST X 2; REPOSITIONING IWTH MAX ASSIST X 2. INSTRUCTED PT TO PERFORM THE PREVIOUS EXS IN BED VS LIEING STATIC IN BED. SAÚL ESCAMILLA, OTR/L
--- NOTE | 2019-05-27 12:00 | NUR ---
I have reviewed this patient and I concur with the Shift Assessment completed by the Licensed Practical Nurse today this shift.
--- NOTE | 2019-05-27 14:51 | MORECARE ---
CASE MANAGEMENT DISCHARGE SUMMARY PATIENT: TROY HAYWOOD UNIT: [id number] ADM DATE: 05/14/19 AGE: 64 : 57 SEX: F ROOM/BED: D.6352 AUTHOR: DAYDAY,DOC PHYSICIAN: REFERRING PHYSICIAN: FABIO PINEDA MD DATE OF SERVICE: 05/27/19 Discharge Plan Patient Name: TROY HAYWOOD Facility: [facility]:[place] : 1955 Planned Disposition: Inpatient Rehab Anticipated Discharge Date: Discharge Date: Expected LOS: Initial Reviewer: [id number] Initial Review Date: 05/19/2019 Generated: 05/27/19 3:51 pm Comments DCP- Discharge Planning Updated by [id number]: Brant Butt on 05/27/19 1:[address] Patient Name: TROY HAYWOOD Encounter No: [id number] : 1955 Primary Insurance: MEDICAID [place] Anticipated DC Date: Planned Disposition: Inpatient Rehab External Planned Provider: [facility] DCP follow-up note: CM FAXED REFERRAL UPDATE TO [facility] AT [phone]. CM WAITING ADMISSION DETERMINATION FROM [facility] IN [place]. Brant Butt, CASE MANAGEMENT Appended by Brant Butt on 05/27/2019 14:41 CDT: CM CALLED [facility], , LEFT MESSAGE ASKING FOR UPDATE ON REFERRAL AND TO KNOW IF THEY ARE STILL CONSIDERING PT FOR REHAB. CM WAITING ADMISSION DETERMINATION FROM [facility] IN [place]. Brant Butt, CASE MANAGEMENT DCP- Discharge Planning Updated by [id number]: Jesica Cartagena on 05/26/19 3:[address] Patient requested Trapeze bar to allow her to sit up in hospital bed. CM spoke Dr. Lawson and obtained approval for Trapeze bar. CM notified Radha in materials management of request for Trapeze bar. CM completed and gave Radha the order form for the Trapeze bar. Trapeze bar will be delivered. CM notified patient's CM, Christiano Butt, on status of Trapeze bar. DCP- Discharge Planning Updated by [email or web address]: Brant Butt on 05/26/19 2:[address] Patient Name: TROY HAYWOOD Encounter No: [id number] : 1955 [facility] Date: Planned Disposition: Inpatient Rehab External Planned Provider: [facility] DCP follow-up note: CM SPOKE TO PT'S DAUGHTER VIA PHONE, HOUSTON SALGADO, . CM OBTAINED PERMISSION FROM PT TO DISCUSS CARE, TREATMENT AND DISCHARGE PLANNING WITH HOUSTON. HOUSTON INFORMED CM THAT PT WAS IN REHAB AT [facility] LAST YEAR AND THEY WANT REFERRED TO [facility] AGAIN. CM DISCUSSED PT'S VERY LOW LEVEL OF PHYSICAL CONDITIONING. PT'S DAUGHTER FEELS THAT PT CAN PARTICIPATE WITH THERAPY WITH GOAL TO RETURN HOME PREVIOUS WITH ABILITY TO TRANSFER TO ELECTRIC SCOOTER AND HOME HEALTH FOR CONTINUED HOME SERVICES. HOUSTON VERIFIED THAT PT HAS NO ADULTS ABLE TO LIVE WITH AND ASSIST PT AT HOME AT THIS TIME. HOUSTON ASKED ABOUT [facility] REHAB SERVICES THAT MAY TAKE PT AT NO COSTS DUE TO INCOME. CM INFORMED HOUSTON THAT CM WAS NOT FAMILIAR WITH ANY OF THESE PROGRAMS. HOUSTON WOULD LIKE TO HAVE PT EVALUATED FOR REHAB AT [facility] PRIOR TO ANY CONSIDERATION OF SKILLED NURSING PLACEMENT PT WILL NOT GET THERAPY THERE. CM SPOKE TO PT WHO IS IN AGREEMENT WITH PLAN. CM CALLED [facility], , NOTIFIED OF REHAB REQUEST; PT HAS ONLY 24 ACUTE DAYS THAT STARTED IN JANUARY, IT DEPENDS ON HOW MANY HAVE BEEN ALREADY USED, PT'S CONDITION AND NEEDS THAT WOULD HAVE TO BE MET IN THE REMAINING DAYS THAT PT HAS TO USE FOR REHAB . CM FAXED REFERRALINFORMATION TO [facility] WITH CURRENT MAR AT [phone]. CM WAITING ADMISSION DETERMINATION FROM [facility] IN [place]. Brant Butt, CASE MANAGEMENT Appended by Brant Butt on 05/26/2019 15:24 CDT: CM MET WITH PT, GRANDDAUGHTER, DAUGHTER HOUSTON VIA PHONE WITH CM GROUND WIRER, UNIT NURSE ROSS FURNACE OPERATOR, REPIRATORY THERAPIST AND GROUND WIRER OF THERAPY SERVICES REGARDING DISCHARGE PLANNING. CONCERNS OF PT'S PLAN TO GO HOME IN CURRENT CONDITION DISCUSSED. PT AND DAUGHTER HAVE AL[facility], CM HAS SENT IT AND WAITING DETERMINATION. PLAN "B" WAS AGREED TO BE NURSING FACILITY IF NOT ACCEPTED TO [facility] AND THAT CM WOULD ATTEMPT TO FIND ONE THAT MAY DONATE REHAB SERVICES. PT'S DAUGHTER IS RESEARCHING [employer]ING FROM [employer] FOR REHAB SERVICES. CM WAITING ADMISSION DETERMINATION FROM [facility] IN [place]. Brant Butt CASE MANAGEMENT DCP- Discharge Planning Updated by [id number]: Brant Butt on 05/25/19 1:[address] Patient Name: TROY HAYWOOD Encounter No: [id number] : 1955 Primary Insurance: MEDICAID [facility] DC Date: Planned Disposition: Home HEALTH External Planned Provider: [facility], VISITING NURSES [facility] DC follow-up note: CM MET WITH PT IN ROOM TO DISCUSS DISCHARGE NEEDS AND PLANNING. CM DISCUSSED AVAILABILITY OF HOME HEALTH, REHAB SERVICES AND MEDICAL EQUIPMENT. PT REFUSES ALF FACILITY PLACEMENT. PT STATES PLAN TO RETURN HOME. 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 PT WAS ABLE TO AMBULATE SMALL DISTANCES AND TRANSFER SELF FROM BED TO ELECTRIC WHEELCHAIR AT HOME. PT THINKS SHE IS GOING TO BE ABLE TO TRANSFER SELF TO GO BACK HOME. PT WANTS HOME HEALTH RESUMED TO GO HOME. CM EXPRESSED CONCERN OF PT'S CURRENT LEVEL OF FUNCTIONING AND RETURNING HOME. PT DENIES HAVING FRIENDS OR FAMILY TO ASSIST WITH HER CARE AT HOME BUT IS NOT GOING TO A SKILLED NURSING. PT THINKS SHE WILL NEED AN AMBULANCE FOR TRANSPORT HOME HER ELECTRIC WHEELCHAIR IS THERE. CM EXPLAINED TO PT THAT SHE WILL NEED TO DEMONSTRATE WITH THERAPY THE ABILITY TO TRANSFER AND SIT IN CHAIR FOR DISCHARGE. PT STATED UNDRESTANDING. CHOICE FOR [facility] VISITING NURSES [facility] SIGNED. 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 PT REFUSED NURSING FACILITY PLACEMENT. PT WILL NEED TO DEMONSTRATE ABILITY TO TRANSFER AND SIT IN CHAIR FOR DISCHARGE SHE HAS ELECTRIC WHEELCHAIR AT HOME. CM TO ARRANGE HOME HEALTH RESUMPTION WITH [facility] VISITING NURSES [place] FOR DISCHARGE HOME. CM TO CONTINUE TO FOLLOW AND ASSIST NEEDED. Brant Butt, CASE MANAGEMENT DCP- Discharge Planning Updated by [id number]: Aleisha Monroe on 05/19/19 6:[address] Patient Name: TROY HAYWOOD Admission Status: ER Accout number: [id number] Admission Date: 05-14-2019 : 1955 Admission Diagnosis: Attending: FABIO PINEDA Current LOS: 5 Anticipated DC Date: Planned Disposition: Home or Self Care Primary Insurance: MEDICAID [place] Discharge Planning Comments: CM met with patient and daughter to complete initial dc planning assessment. Patient recently extubated earlier today. CM educated patient on the CM role and verbal consent given by patient to complete assessment. Patient lives at home with her two young grand-daughters where she is independent with her care. At discharge patient plans to return home and feels this is a safe discharge. CM discussed availability of home health, rehab services, and medical equipment. Patient has Home 02 and HH with unknown providers. CM will f/u with patient @ later date to see if she is able to give providers. Patient denied known discharge needs at this time. CM will continue to follow and will assist as needed with dc plans/needs. Curator Medical Museum: Aleisha Monroe DCPIA - Discharge Planning Initial Assessment Updated by [id number]: Aleisha Monroe on 05/19/19 7:29 pm * How many steps to enter\\exit or inside your home? * PCP uncertain ? * Pharmacy [place] * Preadmission Environment Home with Family * ADLs Independent * Other Equipment HOME 02, WALKER, SCOOTER, BSC, SC * List name and contact numbers for known caregivers / representatives who currently or will assist patient after discharge: CHEPE SUN - DAUGHTER- [phone] * Verbal permission to speak to the caregivers and representatives has been obtained from the patient. Yes * Community resources currently utilized Home Health * Please name any agencies selected above. [facility] * Additional services required to return to the preadmission environment? No * Can the patient safely return to the preadmission environment? Yes * Has this patient been hospitalized within the prior 30 days at any hospital? No Coverage Notice Reviewer: [id number] - Brant Butt Notice Issued Date-Time: 05/25/2019 14:05 Notice Type: Patient Choice Letter Notice Delivered To: Patient Relationship to Patient: Courtroom Reporter Name: Delivery Method: HAND - Hand Delivered Marry Days: Prior Verbal Notification: Recipient Understood Notice: Yes Recipient Signature: Yes Med Rec Note Co-signed by Attending: Coverage Notice Comment: [facility]- VISITING NURSES VLADIMIR RODRIGUEZ ([facility]) Last DP export: 05/27/19 6:36 Patient Name: TROY HAYWOOD Page 32895 at 1451 All edits/amendments must be made on the electronic document DICTATION DATE: 05/27/191450 CASING MATERIAL WEIGHER: MISHEL 05/27/191450 RPT#: [id number] DC DATE: STATUS: ADM IN [facility] [address] [place] [address] END OF REPORT
--- NOTE | 2019-05-27 15:45 | NUR ---
RETURNED TO ROOM VIA BED FROM SURGERY. A/A/OX4. DENIES ANY PAIN, DRESSING TO LEFT CHEST C/D/I AND HEMESPLIT DRESSING C/D/I. WANTED 02 MASK OFF AND NC BACK ON, PULSE OX READING 100%. NO REQUESTS AT PRESENT TIME. IV RUNNING THROUGH BLUE PORT OF HEMESPLIT AND ORDER RECEIVED FROM DR. MCKINNEY TO CONTINUE RUNNING ALL FLUIDS THROUGH THAT PORT.
[2019-05-28 04:00] VITALS: BP 136/58
[2019-05-28 05:30] LABS: BASOPHILS 0.1 % (0-2); EOSINOPHILS 2.8 % (0-7); HEMATOCRIT 29.4 % (36.0-48.0); HEMOGLOBIN 8.6 g/dL (12-16); IMMATURE GRANULOCYTES 0.4 % (0-5); LYMPHOCYTES 10.5 % (15-50); MCH 27.2 pg (26.0-34.0); MCHC 29.3 g/dL (31.0-37.0); MEAN PLATELET VOLUME 10.3 fL (7.4-10.4); MONOCYTES 9.9 % (2-11); NEUTROPHILS 76.3 % (40-80); PLATELET COUNT 256 10x3/uL (130-400); RBC 3.16 10x6/uL (4.00-5.40); RDW 17.2 % (11.5-14.5); WBC 9.1 10x3/uL (4.8-10.8)
[2019-05-28 05:59] LABS: ANION GAP 8.7 mmol/L (8-16); CARBON DIOXIDE 26.5 mmol/L (21.0-32.0); MAGNESIUM - SERUM 1.5 mg/dL (1.8-2.4); POTASSIUM - SERUM 4.2 mmol/L (3.5-5.1)
[2019-05-28 06:18] LABS: CREATININE - SERUM 1.1 mg/dL (0.6-1.3)
--- NOTE | 2019-05-28 07:54 | MORECARE ---
CASE MANAGEMENT DISCHARGE SUMMARY PATIENT: TROY HAYWOOD UNIT: [id number] ADM DATE: 05/14/19 AGE: 64 : 57 SEX: F ROOM/BED: D.2140 AUTHOR: DAYDAY,DOC PHYSICIAN: REFERRING PHYSICIAN: FABIO PINEDA MD DATE OF SERVICE: 05/28/19 Discharge Plan Patient Name: TROY HAYWOOD Facility: [facility]:[place] : 1955 Planned Disposition: Inpatient Rehab Anticipated Discharge Date: Discharge Date: Expected LOS: Initial Reviewer: [id number] Initial Review Date: 05/19/2019 Generated: 05/28/19 8:53 am Comments DCP- Discharge Planning Updated by [id number]: Brant Butt on 05/28/19 6:[address] Patient Name: TROY HAYWOOD Encounter No: [id number] : 1955 Primary Insurance: MEDICAID [place] Anticipated DC Date: Planned Disposition: Inpatient Rehab External Planned Provider: [facility] INPATIENT REH[facility] DCP follow-up note: CM FAXED REFERRAL UPDATE TO [facility] REHAB AT [phone]. CM WAITING ADMISSION DETERMINATION FROM [facility] INPATIENT REHAB IN [place]. ROSANNA Monroe DCP- Discharge Planning Updated by [id number]: Brant Butt on 05/27/19 1:[address] Patient Name: TROY HAYWOOD Encounter No: [id number] : 1955 Primary Insurance: MEDICAID [place] Anticipated DC Date: Planned Disposition: Inpatient Rehab External Planned Provider: [facility] IN[facility] RE[facility] DCP follow-up note: CM FAXED REFERRAL UPDATE TO [facility]/ [facility] REH[facility] AT [phone]. CM WAITING ADMISSION DETERMINATION FROM [facility] INPATIENT REHAB IN [place]. Brant Butt CASE MANAGEMENT Appended by Brant Butt on 05/27/2019 14:41 CDT: CM CALLED [facility], , LEFT MESSAGE ASKING FOR UPDATE ON REFERRAL AND TO KNOW IF THEY ARE STILL CONSIDERING PT FOR REHAB. CM WAITING ADMISSION DETERMINATION FROM [facility] INPATIENT REH[facility] IN [place]. Brant Butt, CASE MANAGEMENT DCP- Discharge Planning Updated by [id number]: Jesica Cartagena on 05/26/19 3:[address] Patient requested Trapeze bar to allow her to sit up in hospital bed. CM spoke Dr. Lawson and obtained approval for Trapeze bar. CM notified Radha in materials management of request for Trapeze bar. CM completed and gave Radha the order form for the Trapeze bar. Trapeze bar will be delivered. CM notified patient's CM, Christiano Butt, on status of Trapeze bar. DCP- Discharge Planning Updated by [id number]: Brant Butt on 05/26/19 2:[address] Patient Name: TROY HAYWOOD Encounter No: [id number] : 1955 Primary Insurance: MEDICAID [facility] DC Date: Planned Disposition: Inpatient Rehab External Planned Provider: [facility] INPAT[facility] REH[facility] DCP follow-up note: CM SPOKE TO PT'S DAUGHTER VIA PHONE, HOUSTON NAOMI, . CM OBTAINED PERMISSION FROM PT TO DISCUSS CARE, TREATMENT AND DISCHARGE PLANNING WITH HOUSTON. HOUSTON INFORMED CM THAT PT WAS IN REHAB AT [facility] LAST YEAR AND THEY WANT REFERRED TO [facility] AGAIN. CM DISCUSSED PT'S VERY LOW LEVEL OF PHYSICAL CONDITIONING. PT'S DAUGHTER FEELS THAT PT CAN PARTICIPATE WITH THERAPY WITH GOAL TO RETURN HOME PREVIOUS WITH ABILITY TO TRANSFER TO ELECTRIC SCOOTER AND HOME HEALTH FOR CONTINUED HOME SERVICES. HOUSTON VERIFIED THAT PT HAS NO ADULTS ABLE TO LIVE WITH AND ASSIST PT AT HOME AT THIS TIME. HOUSTON ASKED ABOUT [facility] REHAB SERVICES THAT MAY TAKE PT AT NO COSTS DUE TO INCOME. CM INFORMED HOUSTON THAT CM WAS NOT FAMILIAR WITH ANY OF THESE PROGRAMS. HOUSTON WOULD LIKE TO HAVE PT EVALUATED FOR REHAB AT [facility] PRIOR TO ANY CONSIDERATION OF HALF-WAY PLACEMENT PT WILL NOT GET THERAPY THERE. CHRISTOPHER SPOKE TO PT WHO IS IN AGREEMENT WITH PLAN. CM CALLED [facility], , NOTIFIED OF REHAB REQUEST; PT HAS ONLY 24 ACUTE DAYS THAT STARTED IN JANUARY, IT DEPENDS ON HOW MANY HAVE BEEN ALREADY USED, PT'S CONDITION AND NEEDS THAT WOULD HAVE TO BE MET IN THE REMAINING DAYS THAT PT HAS TO USE FOR REHAB . CM FAXED REFERRALINFORMATION TO [facility] WITH CURRENT MAR AT [phone]. CM WAITING ADMISSION DETERMINATION FROM [facility] INPATIENT REH[facility] IN [place]. Brant Butt, CASE MANAGEMENT Appended by Brant Butt on 05/26/2019 15:24 CDT: CM MET WITH PT, GRANDDAUGHTER, DAUGHTER HOUSTON VIA PHONE WITH CM SALES APPOINTMENT COORDINATOR, UNIT NURSE FINISH MILL OPERATOR, REPIRATORY THERAPIST AND SALES APPOINTMENT COORDINATOR OF THERAPY SERVICES REGARDING DISCHARGE PLANNING. CONCERNS OF PT'S PLAN TO GO HOME IN CURRENT CONDITION DISCUSSED. PT AND DAUGHTER HAVE ALREADY ASKED FOR REFERRAL TO [facility] REHAB, CM HAS SENT IT AND WAITING DETERMINATION. PLAN "B" WAS AGREED TO BE NURSING FACILITY IF NOT ACCEPTED TO [facility] AND THAT CM WOULD ATTEMPT TO FIND ONE THAT MAY DONATE REHAB SERVICES. PT'S DAUGHTER IS RESEARCHING [employer] FROM [facility] FOR REHAB SERVICES. CM WAITING ADMISSION DETERMINATION FROM [facility] INPATIENT RE[facility] IN [place]. Brant Butt, CASE MANAGEMENT DCP- Discharge Planning Updated by [id number]: Brant Butt on 05/25/19 1:[address] Patient Name: TROY HAYWOOD Encounter No: [id number] : 1955 Primary Insurance: MEDICAID [facility] Date: Planned Disposition: Home HEALTH External Planned Provider: [facility] [address] [place], VISITING NURSES [facility] follow-up note: CM MET WITH PT IN ROOM TO DISCUSS DISCHARGE NEEDS AND PLANNING. CM DISCUSSED AVAILABILITY OF HOME HEALTH, REHAB SERVICES AND MEDICAL EQUIPMENT. PT REFUSES HALF-WAY FACILITY PLACEMENT. PT STATES PLAN TO RETURN HOME. 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 PT WAS ABLE TO AMBULATE SMALL DISTANCES AND TRANSFER SELF FROM BED TO ELECTRIC WHEELCHAIR AT HOME. PT THINKS SHE IS GOING TO BE ABLE TO TRANSFER SELF TO GO BACK HOME. PT WANTS HOME HEALTH RESUMED TO GO HOME. CM EXPRESSED CONCERN OF PT'S CURRENT LEVEL OF FUNCTIONING AND RETURNING HOME. PT DENIES HAVING FRIENDS OR FAMILY TO ASSIST WITH HER CARE AT HOME BUT IS NOT GOING TO A HALF-WAY. PT THINKS SHE WILL NEED AN AMBULANCE FOR TRANSPORT HOME HER ELECTRIC WHEELCHAIR IS THERE. CM EXPLAINED TO PT THAT SHE WILL NEED TO DEMONSTRATE WITH THERAPY THE ABILITY TO TRANSFER AND SIT IN CHAIR FOR DISCHARGE. PT STATED UNDRESTANDING. CHOICE FOR [facility] VISITING NURSES HOME HEALTH SIGNED. 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 PT REFUSED NURSING FACILITY PLACEMENT. PT WILL NEED TO DEMONSTRATE ABILITY TO TRANSFER AND SIT IN CHAIR FOR DISCHARGE SHE HAS ELECTRIC WHEELCHAIR AT HOME. CM TO ARRANGE HOME HEALTH RESUMPTION WITH [facility] VISITING NURSES AGENCY IN [place] FOR DISCHARGE HOME. CM TO CONTINUE TO FOLLOW AND ASSIST NEEDED. Brant Butt, CASE MANAGEMENT DCP- Discharge Planning Updated by [id number]: Aleisha Monroe on 05/19/19 6:[address] Patient Name: TROY HAYWOOD Admission Status: ER Accout number: [id number] Admission Date: 05-14-2019 : 1955 Admission Diagnosis: Attending: FABIO PINEDA Current LOS: 5 Anticipated DC Date: Planned Disposition: Home or Self Care Primary Insurance: MEDICAID [place] Discharge Planning Comments: CM met with patient and daughter to complete initial dc planning assessment. Patient recently extubated earlier today. CM educated patient on the CM role and verbal consent given by patient to complete assessment. Patient lives at home with her two young grand-daughters where she is independent with her care. At discharge patient plans to return home and feels this is a safe discharge. CM discussed availability of home health, rehab services, and medical equipment. Patient has Home 02 and HH with unknown providers. CM will f/u with patient @ later date to see if she is able to give providers. Patient denied known discharge needs at this time. CM will continue to follow and will assist as needed with dc plans/needs. Project Development Manager: Aleisha Monroe DCPIA - Discharge Planning Initial Assessment Updated by [email or web address]: Aleisha Monroe on 05/19/19 7:29 pm * How many steps to enter\\exit or inside your home? * PCP uncertain ? * Pharmacy [facility] * Preadmission Environment Home with Family * ADLs Independent * Other Equipment HOME 02, WALKER, SCOOTER, BSC, SC * List name and contact numbers for known caregivers / representatives who currently or will assist patient after discharge: CHEPE SUN - DAUGHTER- [phone] * Verbal permission to speak to the caregivers and representatives has been obtained from the patient. Yes * Community resources currently utilized Home Health * Please name any agencies selected above. [facility] * Additional services required to return to the preadmission environment? No * Can the patient safely return to the preadmission environment? Yes * Has this patient been hospitalized within the prior 30 days at any hospital? No Coverage Notice Reviewer: [id number] Josef Butt Notice Issued Date-Time: 05/25/2019 14:05 Notice Type: Patient Choice Letter Notice Delivered To: Patient Relationship to Patient: Children'S Aide Name: Delivery Method: HAND - Hand Delivered Marry Days: Prior Verbal Notification: Recipient Understood Notice: Yes Recipient Signature: Yes Med Rec Note Co-signed by Attending: Coverage Notice Comment: AAA- VISITING NURSES [facility] ([facility]) Last DP export: 05/27/19 1:51 Patient Name: TROY HAYWOOD Page [phone] at 0754 All edits/amendments must be made on the electronic document DICTATION DATE: 05/28/19752 WELDING MACHINE OPERATOR THERMIT: MISHEL 05/28/19752 RPT#: [id number] DC DATE: STATUS: ADM IN [facility] [address] [place] [address] END OF REPORT
[2019-05-28 08:47] VITALS: BP 138/59
--- NOTE | 2019-05-28 09:37 | MORECARE ---
CASE MANAGEMENT DISCHARGE SUMMARY PATIENT: TROY HAYWOOD UNIT: [id number] ADM DATE: 05/14/19 AGE: 64 : 57 SEX: F ROOM/BED: D.2140 AUTHOR: DAYDAY,DOC PHYSICIAN: REFERRING PHYSICIAN: FABIO PINEDA MD DATE OF SERVICE: 05/28/19 Discharge Plan Patient Name: TROY HAYWOOD Facility: [facility]:[place] : 1955 Planned Disposition: Inpatient Rehab Anticipated Discharge Date: Discharge Date: Expected LOS: Initial Reviewer: [id number] Initial Review Date: 05/19/2019 Generated: 05/28/19 10:36 am Comments DCP- Discharge Planning Updated by [email or web address]: Brant Butt on 05/28/19 6:[address] Patient Name: TROY HAYWOOD Encounter No: [id number] : 1955 Primary Insurance: MEDICAID [place] Anticipated DC Date: Planned Disposition: Inpatient Rehab External Planned Provider: [facility] INPAT[facility] REH[facility] DCP follow-up note: CM FAXED REFERRAL UPDATE TO [facility] RE[facility] AT [phone]. CM WAITING ADMISSION DETERMINATION FROM [facility] INPATIENT REH[facility] IN [place]. ROSANNA Monroe DCP- Discharge Planning Updated by [email or web address]: Brant Butt on 05/27/19 1:[address] Patient Name: TROY HAYWOOD Encounter No: [id number] : 1955 Primary Insurance: MEDICAID [place] Anticipated DC Date: Planned Disposition: Inpatient Rehab External Planned Provider: [facility] IN[facility] DCP follow-up note: CM FAXED REFERRAL UPDATE TO [facility] RE[facility] AT [phone]. CM WAITING ADMISSION DETERMINATION FROM [facility] INPATIENT REHAB IN [place]. Brant Butt CASE MANAGEMENT Appended by Brant Butt on 05/27/2019 14:41 CDT: CM CALLED [facility] OF [facility], , LEFT MESSAGE ASKING FOR UPDATE ON REFERRAL AND TO KNOW IF THEY ARE STILL CONSIDERING PT FOR REHAB. CM WAITING ADMISSION DETERMINATION FROM [facility] INPATIENT REHAB IN [place]. Brant Butt, CASE MANAGEMENT DCP- Discharge Planning Updated by [id number]: Jesica Cartagena on 05/26/19 3:[address] Patient requested Trapeze bar to allow her to sit up in hospital bed. CM spoke Dr. Lawson and obtained approval for Trapeze bar. CM notified Radha in materials management of request for Trapeze bar. CM completed and gave Radha the order form for the Trapeze bar. Trapeze bar will be delivered. CM notified patient's CM, Christiano Butt, on status of Trapeze bar. DCP- Discharge Planning Updated by [id number]: Brant Butt on 05/26/19 2:[address] Patient Name: TROY HAYWOOD Encounter No: [id number] : 1955 Primary Insurance: MEDICAID [facility] [place] Date: Planned Disposition: Inpatient Rehab External Planned Provider: [facility] IN[facility] DCP follow-up note: CM SPOKE TO PT'S DAUGHTER VIA PHONE, HOUSTON NAOMI, . CM OBTAINED PERMISSION FROM PT TO DISCUSS CARE, TREATMENT AND DISCHARGE PLANNING WITH HOUSTON. HOUSTON INFORMED CM THAT PT WAS IN REHAB AT [facility] LAST YEAR AND THEY WANT REFERRED TO [facility] AGAIN. CM DISCUSSED PT'S VERY LOW LEVEL OF PHYSICAL CONDITIONING. PT'S DAUGHTER FEELS THAT PT CAN PARTICIPATE WITH THERAPY WITH GOAL TO RETURN HOME PREVIOUS WITH ABILITY TO TRANSFER TO ELECTRIC SCOOTER AND HOME HEALTH FOR CONTINUED HOME SERVICES. HOUSTON VERIFIED THAT PT HAS NO ADULTS ABLE TO LIVE WITH AND ASSIST PT AT HOME AT THIS TIME. HOUSTON ASKED ABOUT [facility] REHAB SERVICES THAT MAY TAKE PT AT NO COSTS DUE TO INCOME. CM INFORMED HOUSTON THAT CM WAS NOT FAMILIAR WITH ANY OF THESE PROGRAMS. HOUSTON WOULD LIKE TO HAVE PT EVALUATED FOR REHAB AT [facility] PRIOR TO ANY CONSIDERATION OF ASSISTED PLACEMENT PT WILL NOT GET THERAPY THERE. CHRISTOPHER SPOKE TO PT WHO IS IN AGREEMENT WITH PLAN. CM CALLED [facility], , NOTIFIED OF REHAB REQUEST; PT HAS ONLY 24 ACUTE DAYS THAT STARTED IN JANUARY, IT DEPENDS ON HOW MANY HAVE BEEN ALREADY USED, PT'S CONDITION AND NEEDS THAT WOULD HAVE TO BE MET IN THE REMAINING DAYS THAT PT HAS TO USE FOR REHAB . CM FAXED REFERRALINFORMATION TO [facility] WITH CURRENT MAR AT [phone]. CM WAITING ADMISSION DETERMINATION FROM [facility] INPATIENT REHAB IN [place]. Brant Butt, CASE MANAGEMENT Appended by Brant Butt on 05/26/2019 15:24 CDT: CM MET WITH PT, GRANDDAUGHTER, DAUGHTER HOUSTON VIA PHONE WITH CM LAUNDRY MACHINE OPERATOR, UNIT NURSE HEALTHCARE CUSTOMER SERVICE, REPIRATORY THERAPIST AND LAUNDRY MACHINE OPERATOR OF THERAPY SERVICES REGARDING DISCHARGE PLANNING. CONCERNS OF PT'S PLAN TO GO HOME IN CURRENT CONDITION DISCUSSED. PT AND DAUGHTER HAVE ALREADY ASKED FOR REFERRAL TO [facility] REHAB, CM HAS SENT IT AND WAITING DETERMINATION. PLAN "B" WAS AGREED TO BE NURSING FACILITY IF NOT ACCEPTED TO [facility] AND THAT CM WOULD ATTEMPT TO FIND ONE THAT MAY DONATE REHAB SERVICES. PT'S DAUGHTER IS RESEARCHING [employer] FROM [facility] FOR REHAB SERVICES. CM WAITING ADMISSION DETERMINATION FROM [facility] INPATIENT RE[facility] IN [place]. Brant Butt, CASE MANAGEMENT DCP- Discharge Planning Updated by [id number]: Brant Butt on 05/25/19 1:[address] Patient Name: TROY HAYWOOD Encounter No: [id number] : 1955 Primary Insurance: MEDICAID [facility] Date: Planned Disposition: Home HEALTH External Planned Provider: [facility] [employer], VISITING NURSES [facility] follow-up note: CM MET WITH PT IN ROOM TO DISCUSS DISCHARGE NEEDS AND PLANNING. CM DISCUSSED AVAILABILITY OF HOME HEALTH, REHAB SERVICES AND MEDICAL EQUIPMENT. PT REFUSES ALF FACILITY PLACEMENT. PT STATES PLAN TO RETURN HOME. 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 PT WAS ABLE TO AMBULATE SMALL DISTANCES AND TRANSFER SELF FROM BED TO ELECTRIC WHEELCHAIR AT HOME. PT THINKS SHE IS GOING TO BE ABLE TO TRANSFER SELF TO GO BACK HOME. PT WANTS HOME HEALTH RESUMED TO GO HOME. CM EXPRESSED CONCERN OF PT'S CURRENT LEVEL OF FUNCTIONING AND RETURNING HOME. PT DENIES HAVING FRIENDS OR FAMILY TO ASSIST WITH HER CARE AT HOME BUT IS NOT GOING TO A ASSISTED. PT THINKS SHE WILL NEED AN AMBULANCE FOR TRANSPORT HOME HER ELECTRIC WHEELCHAIR IS THERE. CM EXPLAINED TO PT THAT SHE WILL NEED TO DEMONSTRATE WITH THERAPY THE ABILITY TO TRANSFER AND SIT IN CHAIR FOR DISCHARGE. PT STATED UNDRESTANDING. CHOICE FOR [facility] VISITING NURSES HOME HEALTH SIGNED. 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 PT REFUSED NURSING FACILITY PLACEMENT. PT WILL NEED TO DEMONSTRATE ABILITY TO TRANSFER AND SIT IN CHAIR FOR DISCHARGE SHE HAS ELECTRIC WHEELCHAIR AT HOME. CM TO ARRANGE HOME HEALTH RESUMPTION WITH [facility] ON [facility] VISITING NURSES AGENCY IN [place] FOR DISCHARGE HOME. CM TO CONTINUE TO FOLLOW AND ASSIST NEEDED. Brant Butt, CASE MANAGEMENT DCP- Discharge Planning Updated by [id number]: Aleisha Monroe on 05/19/19 6:[address] Patient Name: TROY HAYWOOD Admission Status: ER Accout number: [id number] Admission Date: 05-14-2019 : 1955 Admission Diagnosis: Attending: FABIO PINEDA Current LOS: 5 Anticipated DC Date: Planned Disposition: Home or Self Care Primary Insurance: MEDICAID [place] Discharge Planning Comments: CM met with patient and daughter to complete initial dc planning assessment. Patient recently extubated earlier today. CM educated patient on the CM role and verbal consent given by patient to complete assessment. Patient lives at home with her two young grand-daughters where she is independent with her care. At discharge patient plans to return home and feels this is a safe discharge. CM discussed availability of home health, rehab services, and medical equipment. Patient has Home 02 and HH with unknown providers. CM will f/u with patient @ later date to see if she is able to give providers. Patient denied known discharge needs at this time. CM will continue to follow and will assist as needed with dc plans/needs. Food Preparation Worker: Aleisha Monroe DCPIA - Discharge Planning Initial Assessment Updated by [id number]: Brant Butt on 05/28/19 9:36 am * How many steps to enter\\exit or inside your home? * PCP uncertain ? * Pharm[facility] * Preadmission Environment Home with Family * ADLs Independent * Other Equipment HOME 02, WALKER, SCOOTER, BSC, SC * List name and contact numbers for known caregivers / representatives who currently or will assist patient after discharge: CHEPE SUN - DAUGHTER- [phone] HOUSTON SALGADO, DTR - [phone] * Verbal permission to speak to the caregivers and representatives has been obtained from the patient. Yes * Community resources currently utilized Home Health * Please name any agencies selected above. [facility] * Additional services required to return to the preadmission environment? No * Can the patient safely return to the preadmission environment? Yes * Has this patient been hospitalized within the prior 30 days at any hospital? No Coverage Notice Reviewer: [id number] - Brant Butt Notice Issued Date-Time: 05/25/2019 14:05 Notice Type: Patient Choice Letter Notice Delivered To: Patient Relationship to Patient: [employer] Contractor Name: Delivery Method: HAND - Hand Delivered Marry Days: Prior Verbal Notification: Recipient Understood Notice: Yes Recipient Signature: Yes Med Rec Note Co-signed by Attending: Coverage Notice Comment: AAA- VISITING NURSES [facility] ([facility]) Last DP export: 05/28/19 6:53 a Patient Name: TROY HAYWOOD Page [id number] at 0937 All edits/amendments must be made on the electronic document DICTATION DATE: 05/28/19935 BALLOON SELLER: MISHEL 05/28/19935 RPT#: [id number] DC DATE: STATUS: ADM IN [facility] [address] [place] [address] END OF REPORT
--- NOTE | 2019-05-28 09:46 | MORECARE ---
CASE MANAGEMENT DISCHARGE SUMMARY PATIENT: TROY HAYWOOD UNIT: [id number] ADM DATE: 05/14/19 AGE: 64 : 57 SEX: F ROOM/BED: D.2140 AUTHOR: DAYDAY,DOC PHYSICIAN: REFERRING PHYSICIAN: FABIO PINEDA MD DATE OF SERVICE: 05/28/19 Discharge Plan Patient Name: TROY HAYWOOD Facility: [facility]:[place] : 1955 Planned Disposition: Nursing Facility YUN Cert Anticipated Discharge Date: Discharge Date: Expected LOS: Initial Reviewer: [id number] Initial Review Date: 05/19/2019 Generated: 05/28/19 10:45 am Comments DCP- Discharge Planning Updated by [email or web address]: Brant Butt on 05/28/19 8:[address] Patient Name: TROY HAYWOOD Encounter No: [id number] : 1955 Primary Insurance: MEDICAID [place] Anticipated DC Date: Planned Disposition: Nursing Facility YUN Cert External Planned Provider: TO BE DETERMINED DCP follow-up note: CM SPOKE TO CULLEN OF [facility], SHE INFORMED CM THAT UPDATES HAVE BEEN RECEIVED, PT IS NOT MAKING ENOUGH PROGRESS WITH THERAPY THAT THEY DO NOT BELIEVE THAT PT WILL BE ABLE TO ACHIEVE THERAPY GOALS IN THE REMAINING 10 DAYS OF ACUTE DAYS THAT PT HAS REMAINING. CM NOTIFIED PT AND PROVIDED PT WITH NURSING FACILITY LISTING OF ALL AVAILABLE FACILITIES WITHIN [address] [place]. PT WILL SPEAK TO HER DAUGHTER AND NOTIFY CM OF HER CHOICES. CM CALLED [facility], , TWICE; AUTOMATED MESSAGE INFORMED CM THAT THE NUMBER WAS RESTRICTED OR CURRENTLY UNAVAILABLE. CM WAITING PT AND FAMILY TO PROVIDE NURSING FACILITY CHOICES FOR CUSTODIAL CARE. Brant Butt, CASE MANAGEMENT DCP- Discharge Planning Updated by [id number]: Brant Butt on 05/28/19 6:[address] Patient Name: TROY HAYWOOD Encounter No: [id number] : 1955 Primary Insurance: [place] Anticipated DC Date: Planned Disposition: Inpatient Rehab External Planned Provider: [facility] DCP follow-up note: CM FAXED REFERRAL UPDATE TO [facility] AT [phone]. CM WAITING ADMISSION DETERMINATION FROM [facility] IN [place]. Brant Butt, CASE MANAGEMENT DCP- Discharge Planning Updated by [id number]: Brant Butt on 05/27/19 1:[address] Patient Name: TROY HAYWOOD Encounter No: [id number] : 1955 Primary Insurance: [place] Anticipated DC Date: Planned Disposition: Inpatient Rehab External Planned Provider: [facility] DCP follow-up note: CM FAXED REFERRAL UPDATE TO [facility] AT [phone]. CM WAITING ADMISSION DETERMINATION FROM [facility] IN [place]. Brant Butt, CASE MANAGEMENT Appended by Brant Butt on 05/27/2019 14:41 CDT: CM CALLED [facility] OF [facility], , LEFT MESSAGE ASKING FOR UPDATE ON REFERRAL AND TO KNOW IF THEY ARE STILL CONSIDERING PT FOR REHAB. CM WAITING ADMISSION DETERMINATION FROM [facility] IN [place]. Brant Butt, CASE MANAGEMENT DCP- Discharge Planning Updated by [id number]: Jesica Osiel on 05/26/19 3:[address] Patient requested Trapeze bar to allow her to sit up in hospital bed. CM spoke Dr. Lawson and obtained approval for Trapeze bar. CM notified Radha in materials management of request for Trapeze bar. CM completed and gave Radha the order form for the Trapeze bar. Trapeze bar will be delivered. CM notified patient's CM, Christiano Butt, on status of Trapeze bar. DCP- Discharge Planning Updated by [id number]: Brant Butt on 05/26/19 2:[address] Patient Name: TROY HAYWOOD Encounter No: [id number] : 1955 Primary Insurance: [place] Anticipated DC Date: Planned Disposition: Inpatient Rehab External Planned Provider: [facility] DCP follow-up note: CM SPOKE TO PT'S DAUGHTER VIA PHONE, [facility], . CM OBTAINED PERMISSION FROM PT TO DISCUSS CARE, TREATMENT AND DISCHARGE PLANNING WITH [facility]. [facility] INFORMED CM THAT PT WAS IN REHAB AT [facility] LAST YEAR AND THEY WANT REFERRED TO [facility] AGAIN. CM DISCUSSED PT'S VERY LOW LEVEL OF PHYSICAL CONDITIONING. PT'S DAUGHTER FEELS THAT PT CAN PARTICIPATE WITH THERAPY WITH GOAL TO RETURN HOME PREVIOUS WITH ABILITY TO TRANSFER TO ELECTRIC SCOOTER AND HOME HEALTH FOR CONTINUED HOME SERVICES. [facility] VERIFIED THAT PT HAS NO ADULTS ABLE TO LIVE WITH AND ASSIST PT AT HOME AT THIS TIME. [facility] ASKED ABOUT [facility] SERVICES THAT MAY TAKE PT AT NO COSTS DUE TO INCOME. CM INFORMED [facility] THAT CM WAS NOT FAMILIAR WITH ANY OF THESE PROGRAMS. [facility] WOULD LIKE TO HAVE PT EVALUATED FOR REHAB AT [facility] PRIOR TO ANY CONSIDERATION OF FPC PLACEMENT PT WILL NOT GET THERAPY THERE. CM SPOKE TO PT WHO IS IN AGREEMENT WITH PLAN. CM CALLED [facility] OF [facility], , NOTIFIED OF REHAB REQUEST; PT HAS ONLY 24 ACUTE DAYS THAT STARTED IN JANUARY, IT DEPENDS ON HOW MANY HAVE BEEN ALREADY USED, PT'S CONDITION AND NEEDS THAT WOULD HAVE TO BE MET IN THE REMAINING DAYS THAT PT HAS TO USE FOR REHAB . CM FAXED REFERRALINFORMATION TO [facility] WITH CURRENT MAR AT [phone]. CM WAITING ADMISSION DETERMINATION FROM [facility] IN [place]. Brant Butt, CASE MANAGEMENT Appended by Brant Butt on 05/26/2019 15:24 CDT: CM MET WITH PT, GRANDDAUGHTER, DAUGHTER [facility] VIA PHONE WITH CM VP MARKETING SERVICES AND SKIN, UNIT NURSE BLOCK OUT MACHINE OPERATOR, REPIRATORY THERAPIST AND VP MARKETING SERVICES AND SKIN OF THERAPY SERVICES REGARDING DISCHARGE PLANNING. CONCERNS OF PT'S PLAN TO GO HOME IN CURRENT CONDITION DISCUSSED. PT AND DAUGHTER HAVE ALREADY ASKED FOR REFERRAL TO [facility], CM HAS SENT IT AND WAITING DETERMINATION. PLAN "B" WAS AGREED TO BE NURSING FACILITY IF NOT ACCEPTED TO [facility] AND THAT CM WOULD ATTEMPT TO FIND ONE THAT MAY DONATE REHAB SERVICES. PT'S DAUGHTER IS RESEARCHING [employer] FROM [facility] FOR REHAB SERVICES. CHRISTOPHER WAITING ADMISSION DETERMINATION FROM [facility] IN [place]. Brant Butt, CASE MANAGEMENT DCP- Discharge Planning Updated by [id number]: Brant Butt on 05/25/19 1:[address] Patient Name: TROY HAYWOOD Encounter No: [id number] : 1955 Primary Insurance: MED[place]ID [place] Anticipated DC Date: Planned Disposition: Home HEALTH External Planned Provider: [facility]SES [facility] DCP follow-up note: CM MET WITH PT IN ROOM TO DISCUSS DISCHARGE NEEDS AND PLANNING. CM DISCUSSED AVAILABILITY OF HOME HEALTH, REHAB SERVICES AND MEDICAL EQUIPMENT. PT REFUSES DETENTION FACILITY PLACEMENT. PT STATES PLAN TO RETURN HOME. 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 PT WAS ABLE TO AMBULATE SMALL DISTANCES AND TRANSFER SELF FROM BED TO ELECTRIC WHEELCHAIR AT HOME. PT THINKS SHE IS GOING TO BE ABLE TO TRANSFER SELF TO GO BACK HOME. PT WANTS HOME HEALTH RESUMED TO GO HOME. CM EXPRESSED CONCERN OF PT'S CURRENT LEVEL OF FUNCTIONING AND RETURNING HOME. PT DENIES HAVING FRIENDS OR FAMILY TO ASSIST WITH HER CARE AT HOME BUT IS NOT GOING TO A FPC. PT THINKS SHE WILL NEED AN AMBULANCE FOR TRANSPORT HOME HER ELECTRIC WHEELCHAIR IS THERE. CM EXPLAINED TO PT THAT SHE WILL NEED TO DEMONSTRATE WITH THERAPY THE ABILITY TO TRANSFER AND SIT IN CHAIR FOR DISCHARGE. PT STATED UNDRESTANDING. CHOICE FOR [facility]URS[facility] SIGNED. 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 PT REFUSED NURSING FACILITY PLACEMENT. PT WILL NEED TO DEMONSTRATE ABILITY TO TRANSFER AND SIT IN CHAIR FOR DISCHARGE SHE HAS ELECTRIC WHEELCHAIR AT HOME. CM TO ARRANGE HOME HEALTH RESUMPTION WITH [facility] [place] IN [place] FOR DISCHARGE HOME. CM TO CONTINUE TO FOLLOW AND ASSIST NEEDED. Brant Butt, CASE MANAGEMENT DCP- Discharge Planning Updated by [id number]: Aleisha Mabel on 05/19/19 6:[address] Patient Name: TROY HAYWOOD Admission Status: ER Accout number: [id number] Admission Date: 05-14-2019 : 1955 Admission Diagnosis: Attending: FABIO PINEDA Current LOS: 5 Anticipated DC Date: Planned Disposition: Home or Self Care Primary Insurance: [place]ID [place] Discharge Planning Comments: CM met with patient and daughter to complete initial dc planning assessment. Patient recently extubated earlier today. CM educated patient on the CM role and verbal consent given by patient to complete assessment. Patient lives at home with her two young grand-daughters where she is independent with her care. At discharge patient plans to return home and feels this is a safe discharge. CM discussed availability of home health, rehab services, and medical equipment. Patient has Home 02 and HH with unknown providers. CM will f/u with patient @ later date to see if she is able to give providers. Patient denied known discharge needs at this time. CM will continue to follow and will assist as needed with dc plans/needs. Shipper/Receiver: Aleisha Monroe DCPIA - Discharge Planning Initial Assessment Updated by [email or web address]: Brant Butt on 05/28/19 9:36 am * How many steps to enter\\exit or inside your home? * PCP uncertain ? * Pharmacy [facility] * Preadmission Environment Home with Family * ADLs Independent * Other Equipment HOME 02, WALKER, SCOOTER, BSC, SC * List name and contact numbers for known caregivers / representatives who currently or will assist patient after discharge: CHEPE SUN - DAUGHTER- [phone] [facility], DTR - [phone] * Verbal permission to speak to the caregivers and representatives has been obtained from the patient. Yes * Community resources currently utilized Home Health * Please name any agencies selected above. [facility] * Additional services required to return to the preadmission environment? No * Can the patient safely return to the preadmission environment? Yes * Has this patient been hospitalized within the prior 30 days at any hospital? No Coverage Notice Reviewer: [id number] - Brant Butt Notice Issued Date-Time: 05/25/2019 14:05 Notice Type: Patient Choice Letter Notice Delivered To: Patient Relationship to Patient: [employer] Associate Name: Delivery Method: HAND - Hand Delivered Marry Days: Prior Verbal Notification: Recipient Understood Notice: Yes Recipient Signature: Yes Med Rec Note Co-signed by Attending: Coverage Notice Comment: [facility]- [facility]ISIT[facility] NURSES [facility]) Last DP export: 05/28/19 6:53 a Patient Name: TROY HAYWOOD Page [phone] at 0946 All edits/amendments must be made on the electronic document DICTATION DATE: 05/28/19944 SILVERING DEPARTMENT SUPERVISOR: MISHEL 05/28/19944 RPT#: [id number] DC DATE: STATUS: ADM IN [facility] [address] [place] [address] END OF REPORT
--- NOTE | 2019-05-28 11:35 | NUR ---
OT NOTE: PT PERFORMED WELL TODAY. PRACTICED HAVING PT MOVE LEGS TO EOB. PT WAS ABLE TO PERFORM APPROX 4 SLIDES TO EOB. MAX ASSIST X 2 FOR SUPINE TO SIT. UNABLE TO REACH TRAPEZE BAR WITH UES FROM THIS POSITION. SITTING BALANCE ON EOB WAS GOOD. PT FEELS THAT SHE CAN STAND. DEFLATED BED AND PROVIDED WALKER. MAX ASSIST X 2 FOR ATTEMPTS WITH SIT TO STAND. ATTEMPTED X 3 BUT UNABLE TO PERFORM. PT UPSET AND FRUSTRATED BECAUSE SHE IS GOING INTO [place]. PT PERFORMED UE/LE EXS WHILE ON EOB. SIT TO SUPINE WITH MAX ASSIST FOR LES. MAX ASSIST X 2 FOR POSITIONING IN BED. PRACTICED WITH PT TO PERFORM UE EXS WITH TRAPEZE BAR WITH HOB ELEVATED. HAD TO PLACE R UE ON BAR AND PT WAS ABLE TO REACH HER L UE UP TO BAR. INSTRUCTED TO PULL SELF UP X 5 REPS. INSTRUCTED TO PERFORM THROGUHOUT THE DAY. WHILE WALKING BY LATER, PT WAS PERFORMING THOSE EXS. SAÚL ESCAMILLA, OTR/L
[2019-05-28 12:06] VITALS: BP 144/60
--- NOTE | 2019-05-28 12:14 | MORECARE ---
CASE MANAGEMENT DISCHARGE SUMMARY PATIENT: TROY HAYWOOD UNIT: [id number] ADM DATE: 05/14/19 AGE: 64 : 57 SEX: F ROOM/BED: D.2140 AUTHOR: DAYDAY,DOC PHYSICIAN: REFERRING PHYSICIAN: FABIO PINEDA MD DATE OF SERVICE: 05/28/19 Discharge Plan Patient Name: TROY HAYWOOD Facility: [facility]:[place] : 1955 Planned Disposition: Nursing Facility YUN Cert Anticipated Discharge Date: Discharge Date: Expected LOS: Initial Reviewer: [id number] Initial Review Date: 05/19/2019 Generated: 05/28/19 1:14 pm Comments DCP- Discharge Planning Updated by [id number]: Sandor Carrasquillo on 05/28/19 11:[address] Patient Name: TROY HAYWOOD Encounter No: [id number] : 1955 Primary Insurance: [place] Anticipated DC Date: Planned Disposition: Nursing Facility YUN Cert External Planned Provider: TO BE DETERMINED DCP follow-up note: CM SPOKE TO [facility], SHE INFORMED CM THAT UPDATES HAVE BEEN RECEIVED, PT IS NOT MAKING ENOUGH PROGRESS WITH THERAPY THAT THEY DO NOT BELIEVE THAT PT WILL BE ABLE TO ACHIEVE THERAPY GOALS IN THE REMAINING 10 DAYS OF ACUTE DAYS THAT PT HAS REMAINING. CM NOTIFIED PT AND PROVIDED PT WITH NURSING FACILITY LISTING OF ALL AVAILABLE FACILITIES WITHIN [address] [place]. PT WILL SPEAK TO HER DAUGHTER AND NOTIFY CM OF HER CHOICES. CM CALLED [facility], , TWICE; AUTOMATED MESSAGE INFORMED CM THAT THE NUMBER WAS RESTRICTED OR CURRENTLY UNAVAILABLE. CM WAITING PT AND FAMILY TO PROVIDE NURSING FACILITY CHOICES FOR CUSTODIAL CARE. Sandor Carrasquillo, CASE MANAGEMENT Appended by Sandor Carrasquillo on 05/28/2019 12:07 CDT: CM SPOKE TO PT IN ROOM, NOTIFIED PT THAT CM TRIED AND COULD NOT REACH DAUGHTER [facility] VIA PHONE. PT REPORTS SHE SPOKE TO [facility] WHO TOLD HER THAT [facility] WILL NOT TAKE HER DUE TO WEIGHT; PT'S DAUGHTER TOLD PT THAT [facility] PROB[facility] WILL NOT TAKE HER. PT REPORTS THERE IS ONE IN [place] THAT MIGHT CONSIDER HER. CM OFFERED CHOICE FORM FOR SIGNATURE SO THAT CM COULD SEND REFERRALS AND BEGIN CALLING TO FIND PLACEMENT. PT REFUSED AND STATES SHE HAS A DAUGHTER, CHEPE, WHO IS A REGISTERED NURSE, THAT MAY BE COMING TO TAKE CARE OF PT AT HOME. PT'S DAUGHTER [facility] IS CALLING DAUGHTER CHEPE TO DISCUSS THE OPTION. PT STATES SHE WILL LET CM KNOW THE OUTCOME AND IF SHE WANTS CM TO EXPLORE RESIDENTIAL CARE FOR HER. CM WAITING PT AND FAMILY TO PROVIDE NURSING FACILITY CHOICES AND FOR PT TO SIGN CONSENT FOR RESIDENTIAL PLACEMENT. PT IS NOW HOPEFUL THAT HER DAUGHTER WHO IS A REGISTERED NURSE WILL COME AND STAY WITH PT AND TAKE CARE OF HER AT HOME. SANDOR CARRASQUILLO CASE DEVAUGHN DCP- Discharge Planning Updated by [id number]: Sandor Carrasquillo on 05/28/19 6:[address] Patient Name: TROY HAYWOOD Encounter No: [id number] : 1955 Primary Insurance: [place] Anticipated DC Date: Planned Disposition: Inpatient Rehab External Planned Provider: [facility] DCP follow-up note: CM FAXED REFERRAL UPDATE TO [facility] AT [phone]. CM WAITING ADMISSION DETERMINATION FROM [facility] IN [place]. ROSANNA Monroe DCP- Discharge Planning Updated by [id number]: Sandor Carrasquillo on 05/27/19 1:[address] Patient Name: TROY HAYWOOD Encounter No: [id number] : 1955 Primary Insurance: [place] Anticipated DC Date: Planned Disposition: Inpatient Rehab External Planned Provider: [facility] DCP follow-up note: CM FAXED REFERRAL UPDATE TO [facility] AT [phone]. CM WAITING ADMISSION DETERMINATION FROM [facility] IN [place]. Sandor Carrasquillo CASE MANAGEMENT Appended by Sandor Carrasquillo on 05/27/2019 14:41 CDT: CM CALLED [facility], , LEFT MESSAGE ASKING FOR UPDATE ON REFERRAL AND TO KNOW IF THEY ARE STILL CONSIDERING PT FOR REHAB. CM WAITING ADMISSION DETERMINATION FROM [facility] IN [place]. Sandor Carrasquillo CASE MANAGEMENT DCP- Discharge Planning Updated by [id number]: Jesica Cartagena on 05/26/19 3:[address] Patient requested Trapeze bar to allow her to sit up in hospital bed. CM spoke Dr. Lawson and obtained approval for Trapeze bar. CM notified Radha in materials management of request for Trapeze bar. CM completed and gave Radha the order form for the Trapeze bar. Trapeze bar will be delivered. CM notified patient's CM, Christiano Daquan, on status of Trapeze bar. DCP- Discharge Planning Updated by [email or web address]: Sandor Buttswell on 05/26/19 2:[address] Patient Name: TROY HAYWOOD Encounter No: [id number] : 1955 Primary Insurance: MEDICAID [facility] Date: Planned Disposition: Inpatient Rehab External Planned Provider: [facility] DCP follow-up note: CHRISTOPHER SPOKE TO PT'S DAUGHTER VIA PHONE, [facility], . CHRISTOPHER OBTAINED PERMISSION FROM PT TO DISCUSS CARE, TREATMENT AND DISCHARGE PLANNING WITH [facility]. [facility] INFORMED CHRISTOPHER THAT PT WAS IN REHAB AT [facility] LAST YEAR AND THEY WANT REFERRED TO [facility] AGAIN. CHRISTOPHER DISCUSSED PT'S VERY LOW LEVEL OF PHYSICAL CONDITIONING. PT'S DAUGHTER FEELS THAT PT CAN PARTICIPATE WITH THERAPY WITH GOAL TO RETURN HOME PREVIOUS WITH ABILITY TO TRANSFER TO ELECTRIC SCOOTER AND HOME HEALTH FOR CONTINUED HOME SERVICES. [facility] VERIFIED THAT PT HAS NO ADULTS ABLE TO LIVE WITH AND ASSIST PT AT HOME AT THIS TIME. [facility] ASKED ABOUT [facility] THAT MAY TAKE PT AT NO COSTS DUE TO INCOME. CHRISTOPHER INFORMED [facility] THAT CHRISTOPHER WAS NOT FAMILIAR WITH ANY OF THESE PROGRAMS. [facility] WOULD LIKE TO HAVE PT EVALUATED FOR REHAB AT [facility] PRIOR TO ANY CONSIDERATION OF RESIDENTIAL PLACEMENT PT WILL NOT GET THERAPY THERE. CHRISTOPHER SPOKE TO PT WHO IS IN AGREEMENT WITH PLAN. CM CALLED [facility], , NOTIFIED OF REHAB REQUEST; PT HAS ONLY 24 ACUTE DAYS THAT STARTED IN JANUARY, IT DEPENDS ON HOW MANY HAVE BEEN ALREADY USED, PT'S CONDITION AND NEEDS THAT WOULD HAVE TO BE MET IN THE REMAINING DAYS THAT PT HAS TO USE FOR REHAB . CHRISTOPHER FAXED REFERRALINFORMATION TO [facility] WITH CURRENT MAR AT [phone]. CM WAITING ADMISSION DETERMINATION FROM [facility] IN [place]. Sandor Carrasquillo, CASE MANAGEMENT Appended by Sandor Carrasquillo on 05/26/2019 15:24 CDT: CM MET WITH PT, GRANDDAUGHTER, DAUGHTER [facility] VIA PHONE WITH CM BIOFUELS PRODUCT DEVELOPMENT MANAGER, UNIT NURSE RADIAL DRILL PRESS OPERATOR, REPIRATORY THERAPIST AND BIOFUELS PRODUCT DEVELOPMENT MANAGER OF THERAPY SERVICES REGARDING DISCHARGE PLANNING. CONCERNS OF PT'S PLAN TO GO HOME IN CURRENT CONDITION DISCUSSED. PT AND DAUGHTER HAVE ALREADY ASKED FOR REFERRAL TO [facility], CM HAS SENT IT AND WAITING DETERMINATION. PLAN "B" WAS AGREED TO BE NURSING FACILITY IF NOT ACCEPTED TO [facility] AND THAT CM WOULD ATTEMPT TO FIND ONE THAT MAY DONATE REHAB SERVICES. PT'S DAUGHTER IS RESEARCHING [employer] FROM [facility] FOR REHAB SERVICES. CM WAITING ADMISSION DETERMINATION FROM [facility] IN [place]. Sandor Carrasquillo, CASE MANAGEMENT DCP- Discharge Planning Updated by [id number]: Sandor Carrasquillo on 05/25/19 1:[address] Patient Name: TROY HAYWOOD Encounter No: [id number] : 1955 Primary Insurance: MEDICAID [facility] Date: Planned Disposition: Home HEALTH External Planned Provider: [facility] [employer] [address], [facility] follow-up note: CM MET WITH PT IN ROOM TO DISCUSS DISCHARGE NEEDS AND PLANNING. CM DISCUSSED AVAILABILITY OF HOME HEALTH, REHAB SERVICES AND MEDICAL EQUIPMENT. PT REFUSES [facility] FACILITY PLACEMENT. PT STATES PLAN TO RETURN HOME. 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 PT WAS ABLE TO AMBULATE SMALL DISTANCES AND TRANSFER SELF FROM BED TO ELECTRIC WHEELCHAIR AT HOME. PT THINKS SHE IS GOING TO BE ABLE TO TRANSFER SELF TO GO BACK HOME. PT WANTS HOME HEALTH RESUMED TO GO HOME. CM EXPRESSED CONCERN OF PT'S CURRENT LEVEL OF FUNCTIONING AND RETURNING HOME. PT DENIES HAVING FRIENDS OR FAMILY TO ASSIST WITH HER CARE AT HOME BUT IS NOT GOING TO A RESIDENTIAL. PT THINKS SHE WILL NEED AN AMBULANCE FOR TRANSPORT HOME HER ELECTRIC WHEELCHAIR IS THERE. CM EXPLAINED TO PT THAT SHE WILL NEED TO DEMONSTRATE WITH THERAPY THE ABILITY TO TRANSFER AND SIT IN CHAIR FOR DISCHARGE. PT STATED UNDRESTANDING. CHOICE FOR [facility] [employer] [facility] [address] [facility] SIGNED. 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 PT REFUSED NURSING FACILITY PLACEMENT. PT WILL NEED TO DEMONSTRATE ABILITY TO TRANSFER AND SIT IN CHAIR FOR DISCHARGE SHE HAS ELECTRIC WHEELCHAIR AT HOME. CM TO ARRANGE HOME HEALTH RESUMPTION WITH [facility] [address] [facility] IN [place] FOR DISCHARGE HOME. CM TO CONTINUE TO FOLLOW AND ASSIST NEEDED. Sandor Carrasquillo, CASE MANAGEMENT DCP- Discharge Planning Updated by [id number]: Aleisha Monroe on 05/19/19 6:[address] Patient Name: TROY HAYWOOD Admission Status: ER Accout number: [id number] Admission Date: 05-14-2019 : 1955 Admission Diagnosis: Attending: FABIO PINEDA Current LOS: 5 Anticipated DC Date: Planned Disposition: Home or Self Care Primary Insurance: MED[place]ID [place] Discharge Planning Comments: CM met with patient and daughter to complete initial dc planning assessment. Patient recently extubated earlier today. CM educated patient on the CM role and verbal consent given by patient to complete assessment. Patient lives at home with her two young grand-daughters where she is independent with her care. At discharge patient plans to return home and feels this is a safe discharge. CM discussed availability of home health, rehab services, and medical equipment. Patient has Home 02 and HH with unknown providers. CM will f/u with patient @ later date to see if she is able to give providers. Patient denied known discharge needs at this time. CM will continue to follow and will assist as needed with dc plans/needs. Hub Lead: Aleisha Monroe DCPIA - Discharge Planning Initial Assessment Updated by [id number]: Sandor Carrasquillo on 05/28/19 9:36 am * How many steps to enter\\exit or inside your home? * PCP uncertain ? * Pharm[facility] * Preadmission Environment Home with Family * ADLs Independent * Other Equipment HOME 02, WALKER, SCOOTER, BSC, SC * List name and contact numbers for known caregivers / representatives who currently or will assist patient after discharge: CHEPE SUN - DAUGHTER- [phone] [facility] SALGADO, DTR - [phone] * Verbal permission to speak to the caregivers and representatives has been obtained from the patient. Yes * Community resources currently utilized Home Health * Please name any agencies selected above. [facility] * Additional services required to return to the preadmission environment? No * Can the patient safely return to the preadmission environment? Yes * Has this patient been hospitalized within the prior 30 days at any hospital? No Coverage Notice Reviewer: [id number] - Sandor Carrasquillo Notice Issued Date-Time: 05/25/2019 14:05 Notice Type: Patient Choice Letter Notice Delivered To: Patient Relationship to Patient: Systems Analyst Developer Name: Delivery Method: HAND - Hand Delivered Marry Days: Prior Verbal Notification: Recipient Understood Notice: Yes Recipient Signature: Yes Med Rec Note Co-signed by Attending: Coverage Notice Comment: [facility]- VISITING [facility]ES [facility] ([facility] Last DP export: 05/28/19 8:46 a Patient Name: TROY HAYWOOD Page [phone] at 1214 All edits/amendments must be made on the electronic document DICTATION DATE: 05/28/191213 LOSS PREVENTION LEAD: MISHEL 05/28/19 121 RPT#: [id number] DC DATE: STATUS: ADM IN [facility] [address] [place] [address] END OF REPORT
--- NOTE | 2019-05-28 14:31 | MORECARE ---
CASE MANAGEMENT DISCHARGE SUMMARY PATIENT: TROY HAYWOOD UNIT: [id number] ADM DATE: 05/14/19 AGE: 64 : 57 SEX: F ROOM/BED: D.2140 AUTHOR: DAYDAY,DOC PHYSICIAN: REFERRING PHYSICIAN: FABIO PINEDA MD DATE OF SERVICE: 05/28/19 Discharge Plan Patient Name: TROY HAYWOOD Facility: [facility]:[place] : 1955 Planned Disposition: Nursing Facility YUN Cert Anticipated Discharge Date: Discharge Date: Expected LOS: Initial Reviewer: [id number] Initial Review Date: 05/19/2019 Generated: 05/28/19 3:30 pm Comments DCP- Discharge Planning Updated by [id number]: Sandor Carrasquillo on 05/28/19 1:[address] Patient Name: TROY HAYWOOD Encounter No: [id number] : 1955 Primary Insurance: MEDICAID [place] Anticipated DC Date: Planned Disposition: Nursing Facility YUN Cert External Planned Provider: TO BE DETERMINED DCP follow-up note: CM SPOKE [facility], SHE INFORMED CM THAT UPDATES HAVE BEEN RECEIVED, PT IS NOT MAKING ENOUGH PROGRESS WITH THERAPY THAT THEY DO NOT BELIEVE THAT PT WILL BE ABLE TO ACHIEVE THERAPY GOALS IN THE REMAINING 10 DAYS OF ACUTE DAYS THAT PT HAS REMAINING. CM NOTIFIED PT AND PROVIDED PT WITH NURSING FACILITY LISTING OF ALL AVAILABLE FACILITIES WITHIN [address] [place]. PT WILL SPEAK TO HER DAUGHTER AND NOTIFY CM OF HER CHOICES. CM CALLED [facility], , TWICE; AUTOMATED MESSAGE INFORMED CM THAT THE NUMBER WAS RESTRICTED OR CURRENTLY UNAVAILABLE. CM WAITING PT AND FAMILY TO PROVIDE NURSING FACILITY CHOICES FOR FURNACE MECHANIC HELPER CARE. Sandor Carrasquillo, CASE MANAGEMENT Appended by Sandor Carrasquillo on 05/28/2019 12:07 CDT: CM SPOKE TO PT IN ROOM, NOTIFIED PT THAT CM TRIED AND COULD NOT REACH DAUGHTER [facility] VIA PHONE. PT REPORTS SHE SPOKE TO [facility] WHO TOLD HER THAT [facility] WILL NOT TAKE HER DUE TO WEIGHT; PT'S DAUGHTER TOLD PT THAT [facility] PROB[facility] WILL NOT TAKE HER. PT REPORTS THERE IS ONE IN [place] THAT MIGHT CONSIDER HER. CM OFFERED CHOICE FORM FOR SIGNATURE SO THAT CM COULD SEND REFERRALS AND BEGIN CALLING TO FIND PLACEMENT. PT REFUSED AND STATES SHE HAS A DAUGHTER, CHEPE, WHO IS A REGISTERED NURSE, THAT MAY BE COMING TO TAKE CARE OF PT AT HOME. PT'S DAUGHTER [facility] IS CALLING DAUGHTER CHEPE TO DISCUSS THE OPTION. PT STATES SHE WILL LET CM KNOW THE OUTCOME AND IF SHE WANTS CM TO EXPLORE LONG-TERM CARE FOR HER. CM WAITING PT AND FAMILY TO PROVIDE NURSING FACILITY CHOICES AND FOR PT TO SIGN CONSENT FOR LONG-TERM PLACEMENT. PT IS NOW HOPEFUL THAT HER DAUGHTER WHO IS A REGISTERED NURSE WILL COME AND STAY WITH PT AND TAKE CARE OF HER AT HOME. SANDOR CARRASQUILLO, CASE MANAGEMENT Appended by Sandor Carrasquillo on 05/28/2019 14:27 CDT: CM RECEIVED MESSAGE THAT PT WANTS TO SEE CM. CM MET WITH PT IN ROOM WHO INFORMED CM THAT SHE HIS NOT GOING TO A LONG-TERM, THAT HER DAUGHTER, CHEPE, WHO IS A NURSE, WILL BE HERE NEXT FRIDAY TO TAKE HER HOME AND WILL TAKE CARE OF PT AT HOME. PT ASKED FOR [facility]. CM DISCUSSED POSSIBLE NEED OF DEBORAH LIFT AND ASKED ABOUT ADDITIONAL EQUIPMENT. PT THINKS BY NEXT WEEK, SHE WILL BE ABLE TO TRANSFER WITHOUT AIDE OF LIFT DEVICE. CM NOTIFIED DR. FREEDMAN WHO INFORMED CM THAT HE WILL ORDER BLOOD GAS ON FRIDAY TO DETERMINE RESPIRATORY DISCHARGE NEEDS AT THAT TIME. PT HAS SIGNED RIGHT OF CHOICE FOR [facility] ALREADY. PT REPORTS HER DAUGHTER, WHO IS A REGISTERED NURSE, WILL BE HERE FRIDAY OF NEXT WEEK TO TAKE CARE OF PT AT HOME. PT PLANS TO DISCHARGE HOME WITH FAMILY AND [facility]. CM TO FOLLOW AND ASSIST NEEDED. ROSANNA MONTAÑO DCP- Discharge Planning Updated by [id number]: Sandor Carrasquillo on 05/28/19 6:[address] Patient Name: TROY HAYWOOD Encounter No: [id number] : 1955 Primary Insurance: MEDICAID [facility] Date: Planned Disposition: Inpatient Rehab External Planned Provider: [facility] DCP follow-up note: CM FAXED REFERRAL UPDATE TO [facility] AT [phone]. CM WAITING ADMISSION DETERMINATION FROM [facility] INPAT[facility] IN [place]. ROSANNA Montaño DCP- Discharge Planning Updated by [id number]: Sandor Carrasquillo on 05/27/19 1:[address] Patient Name: TROY HAYWOOD Encounter No: [id number] : 1955 Primary Insurance: MEDICAID [place] Anticipated DC Date: Planned Disposition: Inpatient Rehab External Planned Provider: [facility] DCP follow-up note: CM FAXED REFERRAL UPDATE TO [facility] AT [phone]. CM WAITING ADMISSION DETERMINATION FROM [facility] IN [place]. Sandor Carrasquillo, CASE MANAGEMENT Appended by Sandor Carrasquillo on 05/27/2019 14:41 CDT: CM CALLED [facility], , LEFT MESSAGE ASKING FOR UPDATE ON REFERRAL AND TO KNOW IF THEY ARE STILL CONSIDERING PT FOR REHAB. CM WAITING ADMISSION DETERMINATION FROM [facility] IN [place]. Sandor Carrasquillo, CASE MANAGEMENT DCP- Discharge Planning Updated by [id number]: Jesica Cartagena on 05/26/19 3:[address] Patient requested Trapeze bar to allow her to sit up in hospital bed. CM spoke Dr. Lawson and obtained approval for Trapeze bar. CM notified Radha in materials management of request for Trapeze bar. CM completed and gave Radha the order form for the Trapeze bar. Trapeze bar will be delivered. CM notified patient's CM, Christiano Carrasquillo, on status of Trapeze bar. DCP- Discharge Planning Updated by [id number]: Sandor Carrasquillo on 05/26/19 2:[address] Patient Name: TROY HAYWOOD Encounter No: [id number] : 1955 Primary Insurance: MED[place]ID [place] Anticipated DC Date: Planned Disposition: Inpatient Rehab External Planned Provider: [facility] DCP follow-up note: CM SPOKE TO PT'S DAUGHTER VIA PHONE, [facility] SALGADO, . CM OBTAINED PERMISSION FROM PT TO DISCUSS CARE, TREATMENT AND DISCHARGE PLANNING WITH [facility]. [facility] INFORMED CM THAT PT WAS IN REHAB AT [facility] LAST YEAR AND THEY WANT REFERRED TO [facility] AGAIN. CM DISCUSSED PT'S VERY LOW LEVEL OF PHYSICAL CONDITIONING. PT'S DAUGHTER FEELS THAT PT CAN PARTICIPATE WITH THERAPY WITH GOAL TO RETURN HOME PREVIOUS WITH ABILITY TO TRANSFER TO ELECTRIC SCOOTER AND HOME HEALTH FOR CONTINUED HOME SERVICES. [facility] VERIFIED THAT PT HAS NO ADULTS ABLE TO LIVE WITH AND ASSIST PT AT HOME AT THIS TIME. [facility] ASKED ABOUT [facility] THAT MAY TAKE PT AT NO COSTS DUE TO INCOME. CM INFORMED [facility] THAT CM WAS NOT FAMILIAR WITH ANY OF THESE PROGRAMS. [facility] WOULD LIKE TO HAVE PT EVALUATED FOR REHAB AT [facility] PRIOR TO ANY CONSIDERATION OF LONG-TERM PLACEMENT PT WILL NOT GET THERAPY THERE. CM SPOKE TO PT WHO IS IN AGREEMENT WITH PLAN. CM CALLED [facility], , NOTIFIED OF REHAB REQUEST; PT HAS ONLY 24 ACUTE DAYS THAT STARTED IN JANUARY, IT DEPENDS ON HOW MANY HAVE BEEN ALREADY USED, PT'S CONDITION AND NEEDS THAT WOULD HAVE TO BE MET IN THE REMAINING DAYS THAT PT HAS TO USE FOR REHAB . CM FAXED REFERRALINFORMATION TO [facility] WITH CURRENT MAR AT [phone]. CM WAITING ADMISSION DETERMINATION FROM [facility] IN [place]. Sandor Carrasquillo, CASE MANAGEMENT Appended by Sandor Carrasquillo on 05/26/2019 15:24 CDT: CM MET WITH PT, GRANDDAUGHTER, DAUGHTER [facility] VIA PHONE WITH CM FAST FOOD SERVICES MANAGER, UNIT NURSE PROJECT ASSOCIATE, REPIRATORY THERAPIST AND FAST FOOD SERVICES MANAGER OF THERAPY SERVICES REGARDING DISCHARGE PLANNING. CONCERNS OF PT'S PLAN TO GO HOME IN CURRENT CONDITION DISCUSSED. PT AND DAUGHTER HAVE ALREADY ASKED FOR REFERRAL TO [facility] REHAB, CM HAS SENT IT AND WAITING DETERMINATION. PLAN "B" WAS AGREED TO BE NURSING FACILITY IF NOT ACCEPTED TO [facility] AND THAT CM WOULD ATTEMPT TO FIND ONE THAT MAY DONATE REHAB SERVICES. PT'S DAUGHTER IS RESEARCHING [employer]DING FROM [facility] FOR REHAB SERVICES. CM WAITING ADMISSION DETERMINATION FROM [facility] IN [place]. Sandor Carrasquillo, CASE MANAGEMENT DCP- Discharge Planning Updated by [id number]: Sandor Carrasquillo on 05/25/19 1:[address] Patient Name: TROY HAYWOOD Encounter No: [id number] : 1955 Primary Insurance: MEDICAID [facility] [place] Date: Planned Disposition: Home HEALTH External Planned Provider: [facility] [place], [facility] follow-up note: CM MET WITH PT IN ROOM TO DISCUSS DISCHARGE NEEDS AND PLANNING. CM DISCUSSED AVAILABILITY OF HOME HEALTH, REHAB SERVICES AND MEDICAL EQUIPMENT. PT REFUSES CORRECTION FACILITY PLACEMENT. PT STATES PLAN TO RETURN HOME. 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 PT WAS ABLE TO AMBULATE SMALL DISTANCES AND TRANSFER SELF FROM BED TO ELECTRIC WHEELCHAIR AT HOME. PT THINKS SHE IS GOING TO BE ABLE TO TRANSFER SELF TO GO BACK HOME. PT WANTS HOME HEALTH RESUMED TO GO HOME. CM EXPRESSED CONCERN OF PT'S CURRENT LEVEL OF FUNCTIONING AND RETURNING HOME. PT DENIES HAVING FRIENDS OR FAMILY TO ASSIST WITH HER CARE AT HOME BUT IS NOT GOING TO A LONG-TERM. PT THINKS SHE WILL NEED AN AMBULANCE FOR TRANSPORT HOME HER ELECTRIC WHEELCHAIR IS THERE. CM EXPLAINED TO PT THAT SHE WILL NEED TO DEMONSTRATE WITH THERAPY THE ABILITY TO TRANSFER AND SIT IN CHAIR FOR DISCHARGE. PT STATED UNDRESTANDING. CHOICE FOR [facility] [place] VISITING N[facility]SES HOME HEALTH SIGNED. 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 PT REFUSED NURSING FACILITY PLACEMENT. PT WILL NEED TO DEMONSTRATE ABILITY TO TRANSFER AND SIT IN CHAIR FOR DISCHARGE SHE HAS ELECTRIC WHEELCHAIR AT HOME. CM TO ARRANGE HOME HEALTH RESUMPTION WITH [facility] [place] VISITING NURSES AGENCY IN [place] FOR DISCHARGE HOME. CM TO CONTINUE TO FOLLOW AND ASSIST NEEDED. Sandor Carrasquillo, CASE MANAGEMENT DCP- Discharge Planning Updated by [id number]: Aleisha Monroe on 05/19/19 6:[address] Patient Name: TROY HAYWOOD Admission Status: ER Accout number: [id number] Admission Date: 05-14-2019 : 1955 Admission Diagnosis: Attending: FABIO PINEDA Current LOS: 5 Anticipated DC Date: Planned Disposition: Home or Self Care Primary Insurance: MEDICAID [place] Discharge Planning Comments: CM met with patient and daughter to complete initial dc planning assessment. Patient recently extubated earlier today. CM educated patient on the CM role and verbal consent given by patient to complete assessment. Patient lives at home with her two young grand-daughters where she is independent with her care. At discharge patient plans to return home and feels this is a safe discharge. CM discussed availability of home health, rehab services, and medical equipment. Patient has Home 02 and HH with unknown providers. CM will f/u with patient @ later date to see if she is able to give providers. Patient denied known discharge needs at this time. CM will continue to follow and will assist as needed with dc plans/needs. Predatory Game Hunter: Aleisha Monroe DCPIA - Discharge Planning Initial Assessment Updated by [id number]: Sandor Carrasquillo on 05/28/19 9:36 am * How many steps to enter\\exit or inside your home? * PCP uncertain ? * Pharmacy [place] * Preadmission Environment Home with Family * ADLs Independent * Other Equipment HOME 02, WALKER, SCOOTER, BSC, SC * List name and contact numbers for known caregivers / representatives who currently or will assist patient after discharge: CHEPE SUN - DAUGHTER- [phone] [facility] SALGADO, DTR - [phone] * Verbal permission to speak to the caregivers and representatives has been obtained from the patient. Yes * Community resources currently utilized Home Health * Please name any agencies selected above. [facility] * Additional services required to return to the preadmission environment? No * Can the patient safely return to the preadmission environment? Yes * Has this patient been hospitalized within the prior 30 days at any hospital? No Coverage Notice Reviewer: [id number] - Sandor Carrasquillo Notice Issued Date-Time: 05/25/2019 14:05 Notice Type: Patient Choice Letter Notice Delivered To: Patient Relationship to Patient: Radio Engineering Teacher Name: Delivery Method: HAND - Hand Delivered Marry Days: Prior Verbal Notification: Recipient Understood Notice: Yes Recipient Signature: Yes Med Rec Note Co-signed by Attending: Coverage Notice Comment: [facility]- VIS[facility]ING [facility] [place] [facility]) Last DP export: 05/28/19 11:14 a Patient Name: TROY HAYWOOD Page [id number] at 1431 All edits/amendments must be made on the electronic document DICTATION DATE: 05/28/19 1430 ENVIRONMENTAL EMERGENCIES ASSISTANT: MISHEL 05/28/19 1430 RPT#: [id number] DC DATE: STATUS: ADM IN [facility] [address] [place] [address] END OF REPORT
--- NOTE | 2019-05-28 15:57 | MORECARE ---
CASE MANAGEMENT DISCHARGE SUMMARY PATIENT: TROY HAYWOOD UNIT: [id number] ADM DATE: 05/14/19 AGE: 64 : 57 SEX: F ROOM/BED: D.2140 AUTHOR: DAYDAY,DOC PHYSICIAN: REFERRING PHYSICIAN: FABIO PINEDA MD DATE OF SERVICE: 05/28/19 Discharge Plan Patient Name: TROY HAYWOOD Facility: [facility]:[place] : 1955 Planned Disposition: Home with Home Health Anticipated Discharge Date: 06/02/19 Discharge Date: Expected LOS: 19 Initial Reviewer: [id number] Initial Review Date: 05/19/2019 Generated: 05/28/19 4:57 pm Comments DCP- Discharge Planning Updated by [id number]: Sandor Carrasquillo on 05/28/19 1:[address] Patient Name: TROY HAYWOOD Encounter No: [id number] : 1955 Primary Insurance: MEDICAID [place] Anticipated DC Date: Planned Disposition: Nursing Facility YUN Cert External Planned Provider: TO BE DETERMINED DCP follow-up note: CM SPOKE TO [facility], SHE INFORMED CM THAT UPDATES HAVE BEEN RECEIVED, PT IS NOT MAKING ENOUGH PROGRESS WITH THERAPY THAT THEY DO NOT BELIEVE THAT PT WILL BE ABLE TO ACHIEVE THERAPY GOALS IN THE REMAINING 10 DAYS OF ACUTE DAYS THAT PT HAS REMAINING. CM NOTIFIED PT AND PROVIDED PT WITH NURSING FACILITY LISTING OF ALL AVAILABLE FACILITIES WITHIN [address] OF [place]. PT WILL SPEAK TO HER DAUGHTER AND NOTIFY CM OF HER CHOICES. CM CALLED [facility], , TWICE; AUTOMATED MESSAGE INFORMED CM THAT THE NUMBER WAS RESTRICTED OR CURRENTLY UNAVAILABLE. CM WAITING PT AND FAMILY TO PROVIDE NURSING FACILITY CHOICES FOR FDC CARE. Sandor Carrasquillo, CASE MANAGEMENT Appended by Sandor Carrasquillo on 05/28/2019 12:07 CDT: CM SPOKE TO PT IN ROOM, NOTIFIED PT THAT CM TRIED AND COULD NOT REACH DAUGHTER [facility] VIA PHONE. PT REPORTS SHE SPOKE TO [facility] WHO TOLD HER THAT [facility] WILL NOT TAKE HER DUE TO WEIGHT; PT'S DAUGHTER TOLD PT THAT [facility] WILL NOT TAKE HER. PT REPORTS THERE IS ONE IN [place] THAT MIGHT CONSIDER HER. CM OFFERED CHOICE FORM FOR SIGNATURE SO THAT CM COULD SEND REFERRALS AND BEGIN CALLING TO FIND PLACEMENT. PT REFUSED AND STATES SHE HAS A DAUGHTER, CHEPE, WHO IS A REGISTERED NURSE, THAT MAY BE COMING TO TAKE CARE OF PT AT HOME. PT'S DAUGHTER [facility] IS CALLING DAUGHTER CHEPE TO DISCUSS THE OPTION. PT STATES SHE WILL LET CM KNOW THE OUTCOME AND IF SHE WANTS CM TO EXPLORE SKILLED NURSING CARE FOR HER. CM WAITING PT AND FAMILY TO PROVIDE NURSING FACILITY CHOICES AND FOR PT TO SIGN CONSENT FOR SKILLED NURSING PLACEMENT. PT IS NOW HOPEFUL THAT HER DAUGHTER WHO IS A REGISTERED NURSE WILL COME AND STAY WITH PT AND TAKE CARE OF HER AT HOME. SANDOR CARRASQUILLO, CASE MANAGEMENT Appended by Sandor Carrasquillo on 05/28/2019 14:27 CDT: CM RECEIVED MESSAGE THAT PT WANTS TO SEE CM. CM MET WITH PT IN ROOM WHO INFORMED CM THAT SHE HIS NOT GOING TO A SKILLED NURSING, THAT HER DAUGHTER, CHEPE, WHO IS A NURSE, WILL BE HERE NEXT FRIDAY TO TAKE HER HOME AND WILL TAKE CARE OF PT AT HOME. PT ASKED FOR [facility]. CM DISCUSSED POSSIBLE NEED OF DEBORAH LIFT AND ASKED ABOUT ADDITIONAL EQUIPMENT. PT THINKS BY NEXT WEEK, SHE WILL BE ABLE TO TRANSFER WITHOUT AIDE OF LIFT DEVICE. CM NOTIFIED DR. FREEDMAN WHO INFORMED CM THAT HE WILL ORDER BLOOD GAS ON FRIDAY TO DETERMINE RESPIRATORY DISCHARGE NEEDS AT THAT TIME. PT HAS SIGNED RIGHT OF CHOICE FOR [facility] ALREADY. PT REPORTS HER DAUGHTER, WHO IS A REGISTERED NURSE, WILL BE HERE FRIDAY OF NEXT WEEK TO TAKE CARE OF PT AT HOME. PT PLANS TO DISCHARGE HOME WITH FAMILY AND [facility]. CM TO FOLLOW AND ASSIST NEEDED. ROSANNA MONTAÑO DCP- Discharge Planning Updated by [id number]: Sandor Carrasquillo on 05/28/19 6:[address] Patient Name: TROY HAYWOOD Encounter No: [id number] : 1955 Primary Insurance: MEDICAID [facility] DC Date: Planned Disposition: Inpatient Rehab External Planned Provider: [facility] DCP follow-up note: CM FAXED REFERRAL UPDATE TO [facility] REHAB AT [phone]. CM WAITING ADMISSION DETERMINATION FROM [facility] INPATIENT RE[facility] IN [place]. ROSANNA Montaño DCP- Discharge Planning Updated by [id number]: Sandor Carrasquillo on 05/27/19 1:[address] Patient Name: TROY HAYWOOD Encounter No: [id number] : 1955 Primary Insurance: MEDICAID [place] Anticipated DC Date: Planned Disposition: Inpatient Rehab External Planned Provider: [facility] DCP follow-up note: CM FAXED REFERRAL UPDATE TO [facility] AT [phone]. CM WAITING ADMISSION DETERMINATION FROM [facility] IN [place]. Sandor Carrasquillo, CASE MANAGEMENT Appended by Sandor Carrasquillo on 05/27/2019 14:41 CDT: CM CALLED [facility], , LEFT MESSAGE ASKING FOR UPDATE ON REFERRAL AND TO KNOW IF THEY ARE STILL CONSIDERING PT FOR REHAB. CM WAITING ADMISSION DETERMINATION FROM [facility] IN [place]. Sandor Carrasquillo, CASE MANAGEMENT DCP- Discharge Planning Updated by [id number]: Jesica Cartagena on 05/26/19 3:[address] Patient requested Trapeze bar to allow her to sit up in hospital bed. CM spoke Dr. Lawson and obtained approval for Trapeze bar. CM notified Radha in materials management of request for Trapeze bar. CM completed and gave Radha the order form for the Trapeze bar. Trapeze bar will be delivered. CM notified patient's CM, Christiano Carrasquillo, on status of Trapeze bar. DCP- Discharge Planning Updated by [id number]: Sandor Carrasquillo on 05/26/19 2:[address] Patient Name: TROY HAYWOOD Encounter No: [id number] : 1955 Primary Insurance: MED[place]ID [place] Anticipated DC Date: Planned Disposition: Inpatient Rehab External Planned Provider: [facility] DCP follow-up note: CM SPOKE TO PT'S DAUGHTER VIA PHONE, [facility] SALGADO, . CM OBTAINED PERMISSION FROM PT TO DISCUSS CARE, TREATMENT AND DISCHARGE PLANNING WITH [facility]. [facility] INFORMED CM THAT PT WAS IN REHAB AT [facility] LAST YEAR AND THEY WANT REFERRED TO [facility] AGAIN. CM DISCUSSED PT'S VERY LOW LEVEL OF PHYSICAL CONDITIONING. PT'S DAUGHTER FEELS THAT PT CAN PARTICIPATE WITH THERAPY WITH GOAL TO RETURN HOME PREVIOUS WITH ABILITY TO TRANSFER TO ELECTRIC SCOOTER AND HOME HEALTH FOR CONTINUED HOME SERVICES. [facility] VERIFIED THAT PT HAS NO ADULTS ABLE TO LIVE WITH AND ASSIST PT AT HOME AT THIS TIME. [facility] ASKED ABOUT [facility] THAT MAY TAKE PT AT NO COSTS DUE TO INCOME. CM INFORMED [facility] THAT CM WAS NOT FAMILIAR WITH ANY OF THESE PROGRAMS. [facility] WOULD LIKE TO HAVE PT EVALUATED FOR REHAB AT [facility] PRIOR TO ANY CONSIDERATION OF SKILLED NURSING PLACEMENT PT WILL NOT GET THERAPY THERE. CM SPOKE TO PT WHO IS IN AGREEMENT WITH PLAN. CM CALLED [facility], , NOTIFIED OF REHAB REQUEST; PT HAS ONLY 24 ACUTE DAYS THAT STARTED IN JANUARY, IT DEPENDS ON HOW MANY HAVE BEEN ALREADY USED, PT'S CONDITION AND NEEDS THAT WOULD HAVE TO BE MET IN THE REMAINING DAYS THAT PT HAS TO USE FOR REHAB . CM FAXED REFERRALINFORMATION TO [facility] WITH CURRENT MAR AT [phone]. CM WAITING ADMISSION DETERMINATION FROM [facility] IN [place]. Sandor Carrasquillo, CASE MANAGEMENT Appended by Sandor Carrasquillo on 05/26/2019 15:24 CDT: CM MET WITH PT, GRANDDAUGHTER, DAUGHTER [facility] VIA PHONE WITH CM PATTERN LAYOUT WORKER, UNIT NURSE DIET CONSULTANT, REPIRATORY THERAPIST AND PATTERN LAYOUT WORKER OF THERAPY SERVICES REGARDING DISCHARGE PLANNING. CONCERNS OF PT'S PLAN TO GO HOME IN CURRENT CONDITION DISCUSSED. PT AND DAUGHTER HAVE ALREADY ASKED FOR REFERRAL TO [facility] REHAB, CM HAS SENT IT AND WAITING DETERMINATION. PLAN "B" WAS AGREED TO BE NURSING FACILITY IF NOT ACCEPTED TO [facility] AND THAT CM WOULD ATTEMPT TO FIND ONE THAT MAY DONATE REHAB SERVICES. PT'S DAUGHTER IS RESEARCHING [facility] [employer] FROM [facility] FOR REHAB SERVICES. CM WAITING ADMISSION DETERMINATION FROM [facility] IN [place]. Sandor Carrasquillo CASE MANAGEMENT DCP- Discharge Planning Updated by [id number]: Sandor Carrasquillo on 05/25/19 1:[address] Patient Name: TROY HAYWOOD Encounter No: [id number] : 1955 Primary Insurance: MEDICAID [facility] Date: Planned Disposition: Home HEALTH External Planned Provider: [facility] [place], [facility]IS[facility] follow-up note: CM MET WITH PT IN ROOM TO DISCUSS DISCHARGE NEEDS AND PLANNING. CM DISCUSSED AVAILABILITY OF HOME HEALTH, REHAB SERVICES AND MEDICAL EQUIPMENT. PT REFUSES RESIDENTIAL FACILITY PLACEMENT. PT STATES PLAN TO RETURN HOME. 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 PT WAS ABLE TO AMBULATE SMALL DISTANCES AND TRANSFER SELF FROM BED TO ELECTRIC WHEELCHAIR AT HOME. PT THINKS SHE IS GOING TO BE ABLE TO TRANSFER SELF TO GO BACK HOME. PT WANTS HOME HEALTH RESUMED TO GO HOME. CM EXPRESSED CONCERN OF PT'S CURRENT LEVEL OF FUNCTIONING AND RETURNING HOME. PT DENIES HAVING FRIENDS OR FAMILY TO ASSIST WITH HER CARE AT HOME BUT IS NOT GOING TO A SKILLED NURSING. PT THINKS SHE WILL NEED AN AMBULANCE FOR TRANSPORT HOME HER ELECTRIC WHEELCHAIR IS THERE. CM EXPLAINED TO PT THAT SHE WILL NEED TO DEMONSTRATE WITH THERAPY THE ABILITY TO TRANSFER AND SIT IN CHAIR FOR DISCHARGE. PT STATED UNDRESTANDING. CHOICE FOR [facility] [place] VISITING NURSES HOME HEALTH SIGNED. 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 PT REFUSED NURSING FACILITY PLACEMENT. PT WILL NEED TO DEMONSTRATE ABILITY TO TRANSFER AND SIT IN CHAIR FOR DISCHARGE SHE HAS ELECTRIC WHEELCHAIR AT HOME. CM TO ARRANGE HOME HEALTH RESUMPTION WITH [facility] VISITING NURSES AGENCY IN [place] FOR DISCHARGE HOME. CM TO CONTINUE TO FOLLOW AND ASSIST NEEDED. Sandor Carrasquillo, CASE MANAGEMENT DCP- Discharge Planning Updated by [id number]: Aleisha Mabel on 05/19/19 6:[address] Patient Name: TROY HAYWOOD Admission Status: ER Accout number: [id number] Admission Date: 05-14-2019 : 1955 Admission Diagnosis: Attending: FABIO PINEDA Current LOS: 5 Anticipated DC Date: Planned Disposition: Home or Self Care Primary Insurance: MEDICAID [place] Discharge Planning Comments: CM met with patient and daughter to complete initial dc planning assessment. Patient recently extubated earlier today. CM educated patient on the CM role and verbal consent given by patient to complete assessment. Patient lives at home with her two young grand-daughters where she is independent with her care. At discharge patient plans to return home and feels this is a safe discharge. CM discussed availability of home health, rehab services, and medical equipment. Patient has Home 02 and HH with unknown providers. CM will f/u with patient @ later date to see if she is able to give providers. Patient denied known discharge needs at this time. CM will continue to follow and will assist as needed with dc plans/needs. Interventional Cardiologist: Aleisha Monroe DCPIA - Discharge Planning Initial Assessment Updated by [id number]: Sandor Carrasquillo on 05/28/19 9:36 am * How many steps to enter\\exit or inside your home? * PCP uncertain ? * Pharmacy [place] * Preadmission Environment Home with Family * ADLs Independent * Other Equipment HOME 02, WALKER, SCOOTER, BSC, SC * List name and contact numbers for known caregivers / representatives who currently or will assist patient after discharge: CHEPE SUN - DAUGHTER- [phone] [facility] SALGADO, DTR - [phone] * Verbal permission to speak to the caregivers and representatives has been obtained from the patient. Yes * Community resources currently utilized Home Health * Please name any agencies selected above. [facility] * Additional services required to return to the preadmission environment? No * Can the patient safely return to the preadmission environment? Yes * Has this patient been hospitalized within the prior 30 days at any hospital? No Coverage Notice Reviewer: [id number] - Sandor Carrasquillo Notice Issued Date-Time: 05/25/2019 14:05 Notice Type: Patient Choice Letter Notice Delivered To: Patient Relationship to Patient: Accounting Generalist Name: Delivery Method: HAND - Hand Delivered Marry Days: Prior Verbal Notification: Recipient Understood Notice: Yes Recipient Signature: Yes Med Rec Note Co-signed by Attending: Coverage Notice Comment: [facility]- VISITING NURSES [facility] Last DP export: 05/28/19 1:31 p Patient Name: TROY HAYWOOD Page [id number] at 1557 All edits/amendments must be made on the electronic document DICTATION DATE: 05/28/19 1557 PROCESS HELPER: MISHEL 05/28/19 5647 RPT#: [id number] DC DATE: STATUS: ADM IN [facility] [address] [place] [address] END OF REPORT
[2019-05-28 16:05] VITALS: BP 128/57
--- NOTE | 2019-05-28 16:10 | MORECARE ---
CASE MANAGEMENT DISCHARGE SUMMARY PATIENT: TROY HAYWOOD UNIT: [id number] ADM DATE: 05/14/19 AGE: 64 : 57 SEX: F ROOM/BED: D.2140 AUTHOR: IRON NAYLOR PHYSICIAN: REFERRING PHYSICIAN: FABIO PINEDA MD DATE OF SERVICE: 05/28/19 Discharge Plan Patient Name: TROY HAYWOOD Facility: [facility]:[place] : 1955 Planned Disposition: Home with Home Health Anticipated Discharge Date: 06/02/19 Discharge Date: Expected LOS: 19 Initial Reviewer: [id number] Initial Review Date: 05/19/2019 Generated: 05/28/19 5:09 pm Comments DCP- Discharge Planning Updated by [id number]: Sandor Carrasquillo on 05/28/19 2:[address] Patient Name: TROY HAYWOOD Encounter No: [id number] : 1955 Primary Insurance: [place] Anticipated DC Date: 06-02-2019 Planned Disposition: Home with Home Health External Planned Provider: [facility] DCP follow-up note: CM RECEIVED CALL FROM PT'S DAUGHTER, CHEPE, WHO VERIFIED THAT SHE WILL COME NEXT WEEK TO STAY WITH PT FOR TWO OR THREE WEEKS TO CARE FOR PT AT HOME. CHEPE WILL DISCUSS WITH HER MOTHER THAT SHE WILL HAVE TO BE ABLE TO STAND AND TRANSFER FOR CHEPE TO CARE FOR HER. CM REVIEWED THERAPY NOTES TO PRESENT. 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 PT HAS BEDSIDE COMMODE AND WHEELCHAIR AT HOME. CHEPE REPORTS NEED OF [facility] RESUMPTION. CHEPE WILL DISCUSS WITH PT AND TRY TO MOTIVATE HER TO MEET THERAPY GOALS PRIOR TO ARRIVAL ON NEXT FRIDAY OR FRIDAY. PT'S DAUGHTER PLANS TO TAKE PT HOME NEXT FRIDAY OR FRIDAY, THEY WILL NEED [facility] RESUMPTION, DENIES FURTHER NEEDS. CM TO FOLLOW AND ASSIST NEEDED. ROSANNA Montaño DCP- Discharge Planning Updated by [id number]: Sandor Carrasquillo on 05/28/19 1:[address] Patient Name: TROY HAYWOOD Encounter No: [id number] : 1955 Primary Insurance: [place] Anticipated DC Date: Planned Disposition: Nursing Facility YUN Cert External Planned Provider: TO BE DETERMINED DCP follow-up note: CM SPOKE TO [facility], SHE INFORMED CM THAT UPDATES HAVE BEEN RECEIVED, PT IS NOT MAKING ENOUGH PROGRESS WITH THERAPY THAT THEY DO NOT BELIEVE THAT PT WILL BE ABLE TO ACHIEVE THERAPY GOALS IN THE REMAINING 10 DAYS OF ACUTE DAYS THAT PT HAS REMAINING. CM NOTIFIED PT AND PROVIDED PT WITH NURSING FACILITY LISTING OF ALL AVAILABLE FACILITIES WITHIN [address] [place]. PT WILL SPEAK TO HER DAUGHTER AND NOTIFY CM OF HER CHOICES. CM CALLED [facility], , TWICE; AUTOMATED MESSAGE INFORMED CM THAT THE NUMBER WAS RESTRICTED OR CURRENTLY UNAVAILABLE. CM WAITING PT AND FAMILY TO PROVIDE NURSING FACILITY CHOICES FOR [facility]. Sandor Carrasquillo, CASE MANAGEMENT Appended by Sandor Carrasquillo on 05/28/2019 12:07 CDT: CM SPOKE TO PT IN ROOM, NOTIFIED PT THAT CM TRIED AND COULD NOT REACH DAUGHTER HOUSTON VIA PHONE. PT REPORTS SHE SPOKE TO [facility] WHO TOLD HER THAT [facility] WILL NOT TAKE HER DUE TO WEIGHT; PT'S DAUGHTER TOLD PT THAT [facility] PROBAB[facility] WILL NOT TAKE HER. PT REPORTS THERE IS ONE IN [place] THAT MIGHT CONSIDER HER. CM OFFERED CHOICE FORM FOR SIGNATURE SO THAT CM COULD SEND REFERRALS AND BEGIN CALLING TO FIND PLACEMENT. PT REFUSED AND STATES SHE HAS A DAUGHTER, CHEPE, WHO IS A REGISTERED NURSE, THAT MAY BE COMING TO TAKE CARE OF PT AT HOME. PT'S DAUGHTER HOUSTON IS CALLING DAUGHTER CHEPE TO DISCUSS THE OPTION. PT STATES SHE WILL LET CM KNOW THE OUTCOME AND IF SHE WANTS CM TO EXPLORE CARE HOME CARE FOR HER. CM WAITING PT AND FAMILY TO PROVIDE NURSING FACILITY CHOICES AND FOR PT TO SIGN CONSENT FOR CARE HOME PLACEMENT. PT IS NOW HOPEFUL THAT HER DAUGHTER WHO IS A REGISTERED NURSE WILL COME AND STAY WITH PT AND TAKE CARE OF HER AT HOME. SANDOR CARRSAQUILLO, CASE MANAGEMENT Appended by Sandor Carrasquillo on 05/28/2019 14:27 CDT: CM RECEIVED MESSAGE THAT PT WANTS TO SEE CM. CM MET WITH PT IN ROOM WHO INFORMED CM THAT SHE HIS NOT GOING TO A CARE HOME, THAT HER DAUGHTER, CHEPE, WHO IS A NURSE, WILL BE HERE NEXT FRIDAY TO TAKE HER HOME AND WILL TAKE CARE OF PT AT HOME. PT ASKED FOR [facility] RESUMPTION. CM DISCUSSED POSSIBLE NEED OF DEBORAH LIFT AND ASKED ABOUT ADDITIONAL EQUIPMENT. PT THINKS BY NEXT WEEK, SHE WILL BE ABLE TO TRANSFER WITHOUT AIDE OF LIFT DEVICE. CM NOTIFIED DR. FREEDMAN WHO INFORMED CM THAT HE WILL ORDER BLOOD GAS ON FRIDAY TO DETERMINE RESPIRATORY DISCHARGE NEEDS AT THAT TIME. PT HAS SIGNED RIGHT OF CHOICE FOR [facility] ALREADY. PT REPORTS HER DAUGHTER, WHO IS A REGISTERED NURSE, WILL BE HERE FRIDAY OF NEXT WEEK TO TAKE CARE OF PT AT HOME. PT PLANS TO DISCHARGE HOME WITH FAMILY AND [facility]. CM TO FOLLOW AND ASSIST NEEDED. ROSANNA MONTAÑO DCP- Discharge Planning Updated by [id number]: Sandor Carrasquillo on 05/28/19 6:[address] Patient Name: TROY HAYWOOD Encounter No: [id number] : 1955 Primary Insurance: [place]ID [place] Anticipated DC Date: Planned Disposition: Inpatient Rehab External Planned Provider: [facility] DCP follow-up note: CM FAXED REFERRAL UPDATE TO [facility] AT [phone]. CM WAITING ADMISSION DETERMINATION FROM [facility] IN [place]. ROSANNA Montaño DCP- Discharge Planning Updated by [id number]: Sandor Carrasquillo on 05/27/19 1:[address] Patient Name: TROY HAYWOOD Encounter No: [id number] : 1955 Primary Insurance: [place] Anticipated DC Date: Planned Disposition: Inpatient Rehab External Planned Provider: [facility] DCP follow-up note: CM FAXED REFERRAL UPDATE TO [facility] AT [phone]. CM WAITING ADMISSION DETERMINATION FROM [facility] IN [place]. ROSANNA Montaño MANAGEMENT Appended by Sandor Carrasquillo on 05/27/2019 14:41 CDT: CM CALLED [facility], , LEFT MESSAGE ASKING FOR UPDATE ON REFERRAL AND TO KNOW IF THEY ARE STILL CONSIDERING PT FOR REHAB. CM WAITING ADMISSION DETERMINATION FROM [facility] IN [place]. ROSANNA Montaño DCP- Discharge Planning Updated by [id number]: Jesica Cartagena on 05/26/19 3:[address] Patient requested Trapeze bar to allow her to sit up in hospital bed. CM spoke Dr. Lawson and obtained approval for Trapeze bar. CM notified Radha in materials management of request for Trapeze bar. CM completed and gave Radha the order form for the Trapeze bar. Trapeze bar will be delivered. CM notified patient's CM, Christiano Daquan, on status of Trapeze bar. DCP- Discharge Planning Updated by [id number]: Sandor Carrasquillo on 05/26/19 2:[address] Patient Name: TROY HAYWOOD Encounter No: [id number] : 1955 Primary Insurance: MEDICAID [facility] Date: Planned Disposition: Inpatient Rehab External Planned Provider: [facility] DCP follow-up note: CHRISTOPHER SPOKE TO PT'S DAUGHTER VIA PHONE, HOUSTON GERMAINBLOOD, . CHRISTOPHER OBTAINED PERMISSION FROM PT TO DISCUSS CARE, TREATMENT AND DISCHARGE PLANNING WITH [facility]. HOUSTON INFORMED CHRISTOPHER THAT PT WAS IN REHAB AT [facility] LAST YEAR AND THEY WANT REFERRED TO [facility] AGAIN. CHRISTOPHER DISCUSSED PT'S VERY LOW LEVEL OF PHYSICAL CONDITIONING. PT'S DAUGHTER FEELS THAT PT CAN PARTICIPATE WITH THERAPY WITH GOAL TO RETURN HOME PREVIOUS WITH ABILITY TO TRANSFER TO ELECTRIC SCOOTER AND HOME HEALTH FOR CONTINUED HOME SERVICES. [facility]ON VERIFIED THAT PT HAS NO ADULTS ABLE TO LIVE WITH AND ASSIST PT AT HOME AT THIS TIME. [facility]ON ASKED ABOUT [facility] RE[facility] SERVICES THAT MAY TAKE PT AT NO COSTS DUE TO INCOME. CHRISTOPHER INFORMED HOUSTON THAT CHRISTOPHER WAS NOT FAMILIAR WITH ANY OF THESE PROGRAMS. [facility] WOULD LIKE TO HAVE PT EVALUATED FOR REHAB AT [facility] PRIOR TO ANY CONSIDERATION OF CARE HOME PLACEMENT PT WILL NOT GET THERAPY THERE. CHRISTOPHER SPOKE TO PT WHO IS IN AGREEMENT WITH PLAN. CHRISTOPHER CALLED [facility], , NOTIFIED OF REHAB REQUEST; PT HAS ONLY 24 ACUTE DAYS THAT STARTED IN JANUARY, IT DEPENDS ON HOW MANY HAVE BEEN ALREADY USED, PT'S CONDITION AND NEEDS THAT WOULD HAVE TO BE MET IN THE REMAINING DAYS THAT PT HAS TO USE FOR REHAB . CHRISTOPHER FAXED REFERRALINFORMATION TO [facility] WITH CURRENT MAR AT [phone]. CM WAITING ADMISSION DETERMINATION FROM [facility] IN [place]. Sandor Carrasquillo, CASE MANAGEMENT Appended by Sandor Carrasquillo on 05/26/2019 15:24 CDT: CM MET WITH PT, GRANDDAUGHTER, DAUGHTER HOUSTON VIA PHONE WITH CM HEAD CASHIER, UNIT NURSE BULL RIDER, REPIRATORY THERAPIST AND HEAD CASHIER OF THERAPY SERVICES REGARDING DISCHARGE PLANNING. CONCERNS OF PT'S PLAN TO GO HOME IN CURRENT CONDITION DISCUSSED. PT AND DAUGHTER HAVE ALREADY ASKED FOR REFERRAL TO [facility] RE[facility], CM HAS SENT IT AND WAITING DETERMINATION. PLAN "B" WAS AGREED TO BE NURSING FACILITY IF NOT ACCEPTED TO [facility] AND THAT CM WOULD ATTEMPT TO FIND ONE THAT MAY DONATE REHAB SERVICES. PT'S DAUGHTER IS RESEARCHING [employer]DING FROM [employer] FOR REHAB SERVICES. CM WAITING ADMISSION DETERMINATION FROM [facility] IN [place]. Sandor Carrasquillo, CASE MANAGEMENT DCP- Discharge Planning Updated by [id number]: Sandor Carrasquillo on 05/25/19 1:[address] Patient Name: TROY HAYWOOD Encounter No: [id number] : 1955 Primary Insurance: MEDICAID [facility] Date: Planned Disposition: Home HEALTH External Planned Provider: [facility] [address], VISITING NURSES [facility] follow-up note: CM MET WITH PT IN ROOM TO DISCUSS DISCHARGE NEEDS AND PLANNING. CM DISCUSSED AVAILABILITY OF HOME HEALTH, REHAB SERVICES AND MEDICAL EQUIPMENT. PT REFUSES PRISON FACILITY PLACEMENT. PT STATES PLAN TO RETURN HOME. 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 PT WAS ABLE TO AMBULATE SMALL DISTANCES AND TRANSFER SELF FROM BED TO ELECTRIC WHEELCHAIR AT HOME. PT THINKS SHE IS GOING TO BE ABLE TO TRANSFER SELF TO GO BACK HOME. PT WANTS HOME HEALTH RESUMED TO GO HOME. CM EXPRESSED CONCERN OF PT'S CURRENT LEVEL OF FUNCTIONING AND RETURNING HOME. PT DENIES HAVING FRIENDS OR FAMILY TO ASSIST WITH HER CARE AT HOME BUT IS NOT GOING TO A CARE HOME. PT THINKS SHE WILL NEED AN AMBULANCE FOR TRANSPORT HOME HER ELECTRIC WHEELCHAIR IS THERE. CM EXPLAINED TO PT THAT SHE WILL NEED TO DEMONSTRATE WITH THERAPY THE ABILITY TO TRANSFER AND SIT IN CHAIR FOR DISCHARGE. PT STATED UNDRESTANDING. CHOICE FOR [facility]SES HOME HEALTH SIGNED. 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 PT REFUSED NURSING FACILITY PLACEMENT. PT WILL NEED TO DEMONSTRATE ABILITY TO TRANSFER AND SIT IN CHAIR FOR DISCHARGE SHE HAS ELECTRIC WHEELCHAIR AT HOME. CM TO ARRANGE HOME HEALTH RESUMPTION WITH [facility] VISITING NURSES AGENCY IN [place] FOR DISCHARGE HOME. CM TO CONTINUE TO FOLLOW AND ASSIST NEEDED. Sandor Carrasquillo, CASE MANAGEMENT DCP- Discharge Planning Updated by [id number]: Aleisha Monroe on 05/19/19 6:[address] Patient Name: TROY HAYWOOD Admission Status: ER Accout number: [id number] Admission Date: 05-14-2019 : 1955 Admission Diagnosis: Attending: FABIO PINEDA Current LOS: 5 Anticipated DC Date: Planned Disposition: Home or Self Care Primary Insurance: MEDICAID [place] Discharge Planning Comments: CM met with patient and daughter to complete initial dc planning assessment. Patient recently extubated earlier today. CM educated patient on the CM role and verbal consent given by patient to complete assessment. Patient lives at home with her two young grand-daughters where she is independent with her care. At discharge patient plans to return home and feels this is a safe discharge. CM discussed availability of home health, rehab services, and medical equipment. Patient has Home 02 and HH with unknown providers. CM will f/u with patient @ later date to see if she is able to give providers. Patient denied known discharge needs at this time. CM will continue to follow and will assist as needed with dc plans/needs. Hydrodynamics Teacher: Aleisha Monroe DCPIA - Discharge Planning Initial Assessment Updated by [id number]: Sandor Carrasquillo on 05/28/19 9:36 am * How many steps to enter\\exit or inside your home? * PCP uncertain ? * Pharmacy [place] * Preadmission Environment Home with Family * ADLs Independent * Other Equipment HOME 02, WALKER, SCOOTER, BSC, SC * List name and contact numbers for known caregivers / representatives who currently or will assist patient after discharge: CHEPE SUN - DAUGHTER- [phone] HOUSTON SALGADO, DTR - [phone] * Verbal permission to speak to the caregivers and representatives has been obtained from the patient. Yes * Community resources currently utilized Home Health * Please name any agencies selected above. [facility] * Additional services required to return to the preadmission environment? No * Can the patient safely return to the preadmission environment? Yes * Has this patient been hospitalized within the prior 30 days at any hospital? No Coverage Notice Reviewer: [id number] Josef Carrasquillo Notice Issued Date-Time: 05/25/2019 14:05 Notice Type: Patient Choice Letter Notice Delivered To: Patient Relationship to Patient: Impression Printer Name: Delivery Method: HAND - Hand Delivered Marry Days: Prior Verbal Notification: Recipient Understood Notice: Yes Recipient Signature: Yes Med Rec Note Co-signed by Attending: Coverage Notice Comment: [facility]- VISITING NURSES [facility] Last DP export: 05/28/19 2:57 p Patient Name: TROY HAYWOOD Page [id number] at 1610 All edits/amendments must be made on the electronic document DICTATION DATE: 05/28/191608 CARD FOLDER: MISHEL 05/28/191608 RPT#: [id number] DC DATE: STATUS: ADM IN [facility] [address] [place] [address] END OF REPORT
[2019-05-28 20:00] VITALS: BP 106/68
--- NOTE | 2019-05-28 22:54 | NUR ---
BALLARD CARE PROVIDED
[2019-05-29] VITALS (7 sets, daily range): BP systolic 102–128; BP diastolic 41–64
[2019-05-29 06:40] LABS: BASOPHILS 0.2 % (0-2); EOSINOPHILS 3.1 % (0-7); HEMATOCRIT 30.1 % (36.0-48.0); HEMOGLOBIN 8.8 g/dL (12-16); IMMATURE GRANULOCYTES 0.4 % (0-5); LYMPHOCYTES 11.2 % (15-50); MCH 27.2 pg (26.0-34.0); MCHC 29.2 g/dL (31.0-37.0); MCV 93.2 fL (80.0-100.0); MEAN PLATELET VOLUME 10.1 fL (7.4-10.4); MONOCYTES 10.7 % (2-11); NEUTROPHILS 74.4 % (40-80); PLATELET COUNT 257 10x3/uL (130-400); RBC 3.23 10x6/uL (4.00-5.40); RDW 17.3 % (11.5-14.5); WBC 8.5 10x3/uL (4.8-10.8)
[2019-05-29 07:23] LABS: ANION GAP 13.5 mmol/L (8-16); CALCIUM 9.1 mg/dL (8.5-10.1); CARBON DIOXIDE 23.6 mmol/L (21.0-32.0); CREATININE - SERUM 1.1 mg/dL (0.6-1.3); MAGNESIUM - SERUM 1.5 mg/dL (1.8-2.4); POTASSIUM - SERUM 4.1 mmol/L (3.5-5.1)
--- NOTE | 2019-05-29 07:42 | NUR ---
REPORT RECIEVED. PT RESTING QUIETLY. RISE AND FALL OF CHEST NOTED. SHE IS CURRENTLY ON 5L NC. SHE HAS A R SUBCLAVIN INFUSING NS @ [facility]. SHE HAS A BALLARD DRAINING URINE. BED LOCKED AND IN LOWEST POSITION, CALL LIGHT WITHIN REACH. WILL CTM
--- NOTE | 2019-05-29 18:19 | NUR ---
I HAVE REVIEWED THIS PATIENT AND I CONCUR WITH THE SHIFT ASSESSMENT COMPLETED BY THE UNDERGROUND ELECTRICIAN TODAY THIS SHIFT
[2019-05-30 04:00] VITALS: BP 114/47
--- NOTE | 2019-05-30 04:14 | NUR ---
PT REQUESTING STOOL SOFTNER. WILL PASS TO AM REPORT.
--- NOTE | 2019-05-30 05:54 | NUR ---
I have reviewed this patient and I concur with the Shift Assessment completed by the Licensed Practical Nurse today this shift.
[2019-05-30 07:45] LABS: BASOPHILS 0.3 % (0-2); EOSINOPHILS 3.4 % (0-7); HEMATOCRIT 28.3 % (36.0-48.0); HEMOGLOBIN 8.3 g/dL (12-16); IMMATURE GRANULOCYTES 0.3 % (0-5); LYMPHOCYTES 13.2 % (15-50); MCH 27.4 pg (26.0-34.0); MCHC 29.3 g/dL (31.0-37.0); MCV 93.4 fL (80.0-100.0); MEAN PLATELET VOLUME 10.1 fL (7.4-10.4); MONOCYTES 10.3 % (2-11); NEUTROPHILS 72.5 % (40-80); PLATELET COUNT 220 10x3/uL (130-400); RBC 3.03 10x6/uL (4.00-5.40); RDW 17.2 % (11.5-14.5); WBC 6.8 10x3/uL (4.8-10.8)
[2019-05-30 07:56] LABS: CALCIUM 8.7 mg/dL (8.5-10.1); CARBON DIOXIDE 23.9 mmol/L (21.0-32.0); CREATININE - SERUM 1.1 mg/dL (0.6-1.3); MAGNESIUM - SERUM 1.4 mg/dL (1.8-2.4); POTASSIUM - SERUM 3.9 mmol/L (3.5-5.1)
[2019-05-30 08:00] VITALS: BP 125/65
[2019-05-30 12:00] VITALS: BP 153/112
--- NOTE | 2019-05-30 13:48 | NUR ---
DRESSING TO CENTRAL LINE DAMP AND NO LONGER STICKING. DRESSING REMOVED, AREA CLEANSED AND DRESSING REPLACED. PT TOLERATED WELL. TURNED AND REPOSITIONED FOR COMFORT WITH PILLOWS PLACED AT BACK.
--- NOTE | 2019-05-30 15:57 | NUR ---
SKIN TEAR NOTED ON RIGHT MID ABDOMEN. AREA CLEANSED AND MEPILEX APPLIED OVER WOUND.
[2019-05-30 16:00] VITALS: BP 113/56
--- NOTE | 2019-05-30 16:17 | NUR ---
I AGREE WITH THE CURRENT ASSESSMENT OF THE WATER PUMP ASSEMBLER ON STAFF
--- NOTE | 2019-05-30 19:56 | NUR ---
I HAVE ANSWERED LIGT TIMES 5 SINCE 1899 PT NEEDEING LITTLE ADJUSTMENTS AND ALSO BED SOLITARIO BED L;OW AND LOCKED AND INFLATED PT WITH CALL LIGHT
[2019-05-30 20:00] VITALS: BP 146/58
[2019-05-31 00:23] VITALS: BP 132/60
--- NOTE | 2019-05-31 02:56 | NUR ---
I have reviewed this patient and I concur with the Shift Assessment completed by the Licensed Practical Nurse today this shift.
[2019-05-31 04:00] VITALS: BP 111/51
[2019-05-31 04:03] LABS: BASOPHILS 0.6 % (0-2); EOSINOPHILS 3.6 % (0-7); HEMATOCRIT 29.2 % (36.0-48.0); HEMOGLOBIN 8.6 g/dL (12-16); IMMATURE GRANULOCYTES 0.2 % (0-5); LYMPHOCYTES 15.7 % (15-50); MCH 27.6 pg (26.0-34.0); MCHC 29.5 g/dL (31.0-37.0); MCV 93.6 fL (80.0-100.0); MEAN PLATELET VOLUME 10.2 fL (7.4-10.4); MONOCYTES 10.9 % (2-11); PLATELET COUNT 226 10x3/uL (130-400); RBC 3.12 10x6/uL (4.00-5.40); RDW 17.2 % (11.5-14.5); WBC 6.5 10x3/uL (4.8-10.8)
[2019-05-31 04:07] LABS: ANION GAP 11.3 mmol/L (8-16); CALCIUM 8.6 mg/dL (8.5-10.1); CARBON DIOXIDE 24.7 mmol/L (21.0-32.0); CREATININE - SERUM 1.1 mg/dL (0.6-1.3); MAGNESIUM - SERUM 1.4 mg/dL (1.8-2.4)
[2019-05-31 09:32] VITALS: BP 140/59
[2019-05-31 13:09] VITALS: BP 136/61
--- NOTE | 2019-05-31 15:30 | NUR ---
I have reviewed this patient and I concur with the Shift Assessment completed by the Licensed Practical Nurse today this shift.
--- NOTE | 2019-05-31 16:02 | MORECARE ---
CASE MANAGEMENT DISCHARGE SUMMARY PATIENT: TROY HAYWOOD UNIT: [id number] ADM DATE: 05/14/19 AGE: 64 : 57 SEX: F ROOM/BED: D.2140 AUTHOR: IRON NAYLOR PHYSICIAN: REFERRING PHYSICIAN: FABIO PINEDA MD DATE OF SERVICE: 05/31/19 Discharge Plan Patient Name: TROY HAYWOOD Facility: [facility]:[place] : 1955 Planned Disposition: Home with Home Health Anticipated Discharge Date: 06/02/19 Discharge Date: Expected LOS: 19 Initial Reviewer: [id number] Initial Review Date: 05/19/2019 Generated: 05/31/19 5:01 pm Comments DCP- Discharge Planning Updated by [email or web address]: Sandor Carrasquillo on 05/28/19 3:[address] Patient Name: TROY HAYWOOD Encounter No: [id number] : 1955 Primary Insurance: MEDICAID [place] Anticipated DC Date: 06-02-2019 Planned Disposition: Home with Home Health External Planned Provider: [facility] DCP follow-up note: CM RECEIVED CALL FROM PT'S DAUGHTER, CHEPE, WHO VERIFIED THAT SHE WILL COME NEXT WEEK TO STAY WITH PT FOR TWO OR THREE WEEKS TO CARE FOR PT AT HOME. CHEPE WILL DISCUSS WITH HER MOTHER THAT SHE WILL HAVE TO BE ABLE TO STAND AND TRANSFER FOR CHEPE TO CARE FOR HER. CM REVIEWED THERAPY NOTES TO PRESENT. 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 PT HAS BEDSIDE COMMODE AND WHEELCHAIR AT HOME. CHEPE REPORTS NEED OF [facility] RESUMPTION. CHEPE WILL DISCUSS WITH PT AND TRY TO MOTIVATE HER TO MEET THERAPY GOALS PRIOR TO ARRIVAL ON NEXT FRIDAY OR FRIDAY. PT'S DAUGHTER PLANS TO TAKE PT HOME NEXT FRIDAY OR FRIDAY, THEY WILL NEED [facility] RESUMPTION, DENIES FURTHER NEEDS. CM TO FOLLOW AND ASSIST NEEDED. ROSANNA Montaño DCP- Discharge Planning Updated by [email or web address]: Sandor Carrasquillo on 05/28/19 2:[address] Patient Name: TROY HAYWOOD Encounter No: [id number] : 1955 Primary Insurance: MEDICAID [place] Anticipated DC Date: Planned Disposition: Nursing Facility YUN Cert External Planned Provider: TO BE DETERMINED DCP follow-up note: CM SPOKE TO [facility], SHE INFORMED CM THAT UPDATES HAVE BEEN RECEIVED, PT IS NOT MAKING ENOUGH PROGRESS WITH THERAPY THAT THEY DO NOT BELIEVE THAT PT WILL BE ABLE TO ACHIEVE THERAPY GOALS IN THE REMAINING 10 DAYS OF ACUTE DAYS THAT PT HAS REMAINING. CM NOTIFIED PT AND PROVIDED PT WITH NURSING FACILITY LISTING OF ALL AVAILABLE FACILITIES WITHIN [address] [place]. PT WILL SPEAK TO HER DAUGHTER AND NOTIFY CM OF HER CHOICES. CM CALLED [facility], , TWICE; AUTOMATED MESSAGE INFORMED CM THAT THE NUMBER WAS RESTRICTED OR CURRENTLY UNAVAILABLE. 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 Sandor Carrasquillo, CASE MANAGEMENT Appended by Sandor Carrasquillo on 05/28/2019 12:07 CDT: CM SPOKE TO PT IN ROOM, NOTIFIED PT THAT CM TRIED AND COULD NOT REACH DAUGHTER HOUSTON VIA PHONE. PT REPORTS SHE SPOKE TO [facility] WHO TOLD HER THAT [facility] WILL NOT TAKE HER DUE TO WEIGHT; PT'S DAUGHTER TOLD PT THAT [facility] PROBAB[facility] WILL NOT TAKE HER. PT REPORTS THERE IS ONE IN [place] THAT MIGHT CONSIDER HER. CM OFFERED CHOICE FORM FOR SIGNATURE SO THAT CM COULD SEND REFERRALS AND BEGIN CALLING TO FIND PLACEMENT. PT REFUSED AND STATES SHE HAS A DAUGHTER, CHEPE, WHO IS A REGISTERED NURSE, THAT MAY BE COMING TO TAKE CARE OF PT AT HOME. PT'S DAUGHTER HOUSTON IS CALLING DAUGHTER CHEPE TO DISCUSS THE OPTION. PT STATES SHE WILL LET CM KNOW THE OUTCOME AND IF SHE WANTS CM TO EXPLORE CORRECTION CARE FOR HER. CM WAITING PT AND FAMILY TO PROVIDE NURSING FACILITY CHOICES AND FOR PT TO SIGN CONSENT FOR CORRECTION PLACEMENT. PT IS NOW HOPEFUL THAT HER DAUGHTER WHO IS A REGISTERED NURSE WILL COME AND STAY WITH PT AND TAKE CARE OF HER AT HOME. SANDOR CARRASQUILLO, CASE MANAGEMENT Appended by Sandor Carrasquillo on 05/28/2019 14:27 CDT: CM RECEIVED MESSAGE THAT PT WANTS TO SEE CM. CM MET WITH PT IN ROOM WHO INFORMED CM THAT SHE HIS NOT GOING TO A CORRECTION, THAT HER DAUGHTER, CHEPE, WHO IS A NURSE, WILL BE HERE NEXT FRIDAY TO TAKE HER HOME AND WILL TAKE CARE OF PT AT HOME. PT ASKED FOR [facility] RESUMPTION. CM DISCUSSED POSSIBLE NEED OF DEBORAH LIFT AND ASKED ABOUT ADDITIONAL EQUIPMENT. PT THINKS BY NEXT WEEK, SHE WILL BE ABLE TO TRANSFER WITHOUT AIDE OF LIFT DEVICE. CM NOTIFIED DR. FREEDMAN WHO INFORMED CM THAT HE WILL ORDER BLOOD GAS ON FRIDAY TO DETERMINE RESPIRATORY DISCHARGE NEEDS AT THAT TIME. PT HAS SIGNED RIGHT OF CHOICE FOR [facility] ALREADY. PT REPORTS HER DAUGHTER, WHO IS A REGISTERED NURSE, WILL BE HERE FRIDAY OF NEXT WEEK TO TAKE CARE OF PT AT HOME. PT PLANS TO DISCHARGE HOME WITH FAMILY AND [facility]. CM TO FOLLOW AND ASSIST NEEDED. ROSANNA MONTAÑO DCP- Discharge Planning Updated by [id number]: Sandor Carrasquillo on 05/28/19 7:[address] Patient Name: TROY HAYWOOD Encounter No: [id number] : 1955 Primary Insurance: MEDICAID [place] Anticipated DC Date: Planned Disposition: Inpatient Rehab External Planned Provider: [facility] DCP follow-up note: CM FAXED REFERRAL UPDATE TO [facility] AT [phone]. CM WAITING ADMISSION DETERMINATION FROM [facility] IN [place]. ROSANNA Montaño DCP- Discharge Planning Updated by [id number]: Sandor Carrasquillo on 05/27/19 2:[address] Patient Name: TROY HAYWOOD Encounter No: [id number] : 1955 Primary Insurance: MEDICAID [place] Anticipated DC Date: Planned Disposition: Inpatient Rehab External Planned Provider: [facility] DCP follow-up note: CM FAXED REFERRAL UPDATE TO [facility]/ [facility] AT [phone]. CM WAITING ADMISSION DETERMINATION FROM [facility] IN [place]. ROSANNA Montaño MANAGEMENT Appended by Sandor Carrasquillo on 05/27/2019 14:41 CDT: CM CALLED [facility], , LEFT MESSAGE ASKING FOR UPDATE ON REFERRAL AND TO KNOW IF THEY ARE STILL CONSIDERING PT FOR REHAB. CM WAITING ADMISSION DETERMINATION FROM [facility] IN [place]. ROSANNA Montaño DCP- Discharge Planning Updated by [id number]: Jesica Cartagena on 05/26/19 4:[address] Patient requested Trapeze bar to allow her to sit up in hospital bed. CM spoke Dr. Lawson and obtained approval for Trapeze bar. CM notified Radha in materials management of request for Trapeze bar. CM completed and gave Radha the order form for the Trapeze bar. Trapeze bar will be delivered. CM notified patient's CM, Christiano Daquan, on status of Trapeze bar. DCP- Discharge Planning Updated by [email or web address]: Sandor Buttswell on 05/26/19 3:[address] Patient Name: TROY HAYWOOD Encounter No: [id number] : 1955 Primary Insurance: MEDICAID [facility] Date: Planned Disposition: Inpatient Rehab External Planned Provider: [facility] DCP follow-up note: CHRISTOPHER SPOKE TO PT'S DAUGHTER VIA PHONE, HOUSTON GERMAINBLOOD, . CHRISTOPHER OBTAINED PERMISSION FROM PT TO DISCUSS CARE, TREATMENT AND DISCHARGE PLANNING WITH HOUSTON. HOUSTON INFORMED CHRISTOPHER THAT PT WAS IN REHAB AT [facility] LAST YEAR AND THEY WANT REFERRED TO [facility] AGAIN. CHRISTOPHER DISCUSSED PT'S VERY LOW LEVEL OF PHYSICAL CONDITIONING. PT'S DAUGHTER FEELS THAT PT CAN PARTICIPATE WITH THERAPY WITH GOAL TO RETURN HOME PREVIOUS WITH ABILITY TO TRANSFER TO ELECTRIC SCOOTER AND HOME HEALTH FOR CONTINUED HOME SERVICES. HOUSTON VERIFIED THAT PT HAS NO ADULTS ABLE TO LIVE WITH AND ASSIST PT AT HOME AT THIS TIME. HOUSTON ASKED ABOUT [facility] REH[facility] SERVICES THAT MAY TAKE PT AT NO COSTS DUE TO INCOME. CHRISTOPHER INFORMED HOUSTON THAT CHRISTOPHER WAS NOT FAMILIAR WITH ANY OF THESE PROGRAMS. HOUSTON WOULD LIKE TO HAVE PT EVALUATED FOR REHAB AT [facility] PRIOR TO ANY CONSIDERATION OF CORRECTION PLACEMENT PT WILL NOT GET THERAPY THERE. CHRISTOPHER SPOKE TO PT WHO IS IN AGREEMENT WITH PLAN. CHRISTOPHER CALLED [facility], , NOTIFIED OF REHAB REQUEST; PT HAS ONLY 24 ACUTE DAYS THAT STARTED IN JANUARY, IT DEPENDS ON HOW MANY HAVE BEEN ALREADY USED, PT'S CONDITION AND NEEDS THAT WOULD HAVE TO BE MET IN THE REMAINING DAYS THAT PT HAS TO USE FOR REHAB . CHRISTOPHER FAXED REFERRALINFORMATION TO [facility] WITH CURRENT MAR AT [phone]. CM WAITING ADMISSION DETERMINATION FROM [facility] IN [place]. Sandor Carrasquillo, CASE MANAGEMENT Appended by Sandor Carrasquillo on 05/26/2019 15:24 CDT: CM MET WITH PT, GRANDDAUGHTER, DAUGHTER HOUSTON VIA PHONE WITH CM SERVICER TRAVEL TRAILERS, UNIT NURSE COLLAR BASTER JUMPBASTING, REPIRATORY THERAPIST AND SERVICER TRAVEL TRAILERS OF THERAPY SERVICES REGARDING DISCHARGE PLANNING. CONCERNS OF PT'S PLAN TO GO HOME IN CURRENT CONDITION DISCUSSED. PT AND DAUGHTER HAVE ALREADY ASKED FOR REFERRAL TO [facility], CM HAS SENT IT AND WAITING DETERMINATION. PLAN "B" WAS AGREED TO BE NURSING FACILITY IF NOT ACCEPTED TO [facility] AND THAT CM WOULD ATTEMPT TO FIND ONE THAT MAY DONATE REHAB SERVICES. PT'S DAUGHTER IS RESEARCHING [employer] FROM [facility] FOR REHAB SERVICES. CM WAITING ADMISSION DETERMINATION FROM [facility] IN [place]. Sandor Carrasquillo, CASE MANAGEMENT DCP- Discharge Planning Updated by [id number]: Sandor Carrasquillo on 05/25/19 2:[address] Patient Name: TROY HAYWOOD Encounter No: [id number] : 1955 Primary Insurance: MEDICAID [facility] Date: Planned Disposition: Home HEALTH External Planned Provider: [facility] [email or web address] ON [employer], VISITING NURSES [facility] follow-up note: CM MET WITH PT IN ROOM TO DISCUSS DISCHARGE NEEDS AND PLANNING. CM DISCUSSED AVAILABILITY OF HOME HEALTH, REHAB SERVICES AND MEDICAL EQUIPMENT. PT REFUSES LONG TERM FACILITY PLACEMENT. PT STATES PLAN TO RETURN HOME. 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 PT WAS ABLE TO AMBULATE SMALL DISTANCES AND TRANSFER SELF FROM BED TO ELECTRIC WHEELCHAIR AT HOME. PT THINKS SHE IS GOING TO BE ABLE TO TRANSFER SELF TO GO BACK HOME. PT WANTS HOME HEALTH RESUMED TO GO HOME. CM EXPRESSED CONCERN OF PT'S CURRENT LEVEL OF FUNCTIONING AND RETURNING HOME. PT DENIES HAVING FRIENDS OR FAMILY TO ASSIST WITH HER CARE AT HOME BUT IS NOT GOING TO A CORRECTION. PT THINKS SHE WILL NEED AN AMBULANCE FOR TRANSPORT HOME HER ELECTRIC WHEELCHAIR IS THERE. CM EXPLAINED TO PT THAT SHE WILL NEED TO DEMONSTRATE WITH THERAPY THE ABILITY TO TRANSFER AND SIT IN CHAIR FOR DISCHARGE. PT STATED UNDRESTANDING. CHOICE FOR [facility] AGENC[facility] ON AGING VISITING NURSES HOME HEALTH SIGNED. 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 PT REFUSED NURSING FACILITY PLACEMENT. PT WILL NEED TO DEMONSTRATE ABILITY TO TRANSFER AND SIT IN CHAIR FOR DISCHARGE SHE HAS ELECTRIC WHEELCHAIR AT HOME. CM TO ARRANGE HOME HEALTH RESUMPTION WITH [facility] ON AGING VISITING NURSES AGENCY IN [place] FOR DISCHARGE HOME. CM TO CONTINUE TO FOLLOW AND ASSIST NEEDED. Sandor Carrasquillo, CASE MANAGEMENT DCP- Discharge Planning Updated by [email or web address]: Aleisha Monroe on 05/19/19 7:[address] Patient Name: TROY HAYWOOD Admission Status: ER Accout number: [id number] Admission Date: 05-14-2019 : 1955 Admission Diagnosis: Attending: FABIO PINEDA Current LOS: 5 Anticipated DC Date: Planned Disposition: Home or Self Care Primary Insurance: MEDICAID [place] Discharge Planning Comments: CM met with patient and daughter to complete initial dc planning assessment. Patient recently extubated earlier today. CM educated patient on the CM role and verbal consent given by patient to complete assessment. Patient lives at home with her two young grand-daughters where she is independent with her care. At discharge patient plans to return home and feels this is a safe discharge. CM discussed availability of home health, rehab services, and medical equipment. Patient has Home 02 and HH with unknown providers. CM will f/u with patient @ later date to see if she is able to give providers. Patient denied known discharge needs at this time. CM will continue to follow and will assist as needed with dc plans/needs. Thinner Sprayer: Aleisha Monroe DCPIA - Discharge Planning Initial Assessment Updated by [id number]: Sandor Carrasquillo on 05/28/19 9:36 am * How many steps to enter\\exit or inside your home? * PCP uncertain ? * [facility] * Preadmission Environment Home with Family * ADLs Independent * Other Equipment HOME 02, WALKER, SCOOTER, BSC, SC * List name and contact numbers for known caregivers / representatives who currently or will assist patient after discharge: CHEPE SUN - DAUGHTER- [phone] HOUSTON SALGADO, DTR - [phone] * Verbal permission to speak to the caregivers and representatives has been obtained from the patient. Yes * Community resources currently utilized Home Health * Please name any agencies selected above. [facility] * Additional services required to return to the preadmission environment? No * Can the patient safely return to the preadmission environment? Yes * Has this patient been hospitalized within the prior 30 days at any hospital? No External Providers External Provider: [facility] Next Contact Date: 05/31/2019 Service Request Date: Service Type: Resolution: Reviewer: Comments: Coverage Notice Reviewer: [id number] - Sandor Carrasquillo Notice Issued Date-Time: 05/25/2019 14:05 Notice Type: Patient Choice Letter Notice Delivered To: Patient Relationship to Patient: Computer Typesetter Name: Delivery Method: HAND - Hand Delivered Marry Days: Prior Verbal Notification: Recipient Understood Notice: Yes Recipient Signature: Yes Med Rec Note Co-signed by Attending: Coverage Notice Comment: AAA- VISITING NURSES [facility] ([facility]) Last DP export: 05/28/19 4:10 p Patient Name: TROY HAYWOOD Page [id number] at 1602 All edits/amendments must be made on the electronic document DICTATION DATE: 05/31/191600 TRIM MOUNTER: MISHEL 05/31/19 160 RPT#: [id number] DC DATE: STATUS: ADM IN [facility] [address] [place] [address] END OF REPORT
--- NOTE | 2019-05-31 16:34 | NUR ---
PT LYING IN BED. WATCHING TV. PT STATES SHE HAS NO FURTHER NEEDS AT THSI TIME. BED LOW. CL IN REACH.
--- NOTE | 2019-05-31 16:42 | NUR ---
OT NOTE: PT PERFORMED BED MOB WITH MAX ASSIST; STATIC SITTING ON EOB WITH SBA; ATTEMPTED SIT TO STAND X 3 TRIALS WITH MAX ASSIST X 2 AND BARIATRIC WALKER.. PT UNABLE TO PERFORM. ASSISTED PT WITH BATHING.. PT ABLE TO WASH FACE, HANDS, AND CHEST WITH SET UP OF WASH CLOTH AND BASIN OF WATER. REQUIRED MAX/TOTAL ASSIST WITH REMAINDER OF BED BATH. ALSO APPLIED MOISTURE BARRIER TO AREAS UNDER BREAST AND ABDOMINAL FOLDS. SAÚL ESCAMILLA, OTR/L
[2019-05-31 16:45] VITALS: BP 133/47
--- NOTE | 2019-05-31 16:45 | MORECARE ---
CASE MANAGEMENT DISCHARGE SUMMARY PATIENT: TROY HAYWOOD UNIT: [id number] ADM DATE: 05/14/19 AGE: 64 : 57 SEX: F ROOM/BED: D.2140 AUTHOR: IRON NAYLOR PHYSICIAN: REFERRING PHYSICIAN: FABIO PINEDA MD DATE OF SERVICE: 05/31/19 Discharge Plan Patient Name: TROY HAYWOOD Facility: [facility]:[place] : 1955 Planned Disposition: Home with Home Health Anticipated Discharge Date: 06/02/19 Discharge Date: Expected LOS: 19 Initial Reviewer: [id number] Initial Review Date: 05/19/2019 Generated: 05/31/19 5:44 pm Comments DCP- Discharge Planning Updated by [email or web address]: Sandor Carrasquillo on 05/28/19 3:[address] Patient Name: TROY HAYWOOD Encounter No: [id number] : 1955 Primary Insurance: MEDICAID [place] Anticipated DC Date: 06-02-2019 Planned Disposition: Home with Home Health External Planned Provider: [facility] DCP follow-up note: CM RECEIVED CALL FROM PT'S DAUGHTER, CHEPE, WHO VERIFIED THAT SHE WILL COME NEXT WEEK TO STAY WITH PT FOR TWO OR THREE WEEKS TO CARE FOR PT AT HOME. CHEPE WILL DISCUSS WITH HER MOTHER THAT SHE WILL HAVE TO BE ABLE TO STAND AND TRANSFER FOR CHEPE TO CARE FOR HER. CM REVIEWED THERAPY NOTES TO PRESENT. 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 PT HAS BEDSIDE COMMODE AND WHEELCHAIR AT HOME. CHEPE REPORTS NEED OF [facility] RESUMPTION. CHEPE WILL DISCUSS WITH PT AND TRY TO MOTIVATE HER TO MEET THERAPY GOALS PRIOR TO ARRIVAL ON NEXT FRIDAY OR FRIDAY. PT'S DAUGHTER PLANS TO TAKE PT HOME NEXT FRIDAY OR FRIDAY, THEY WILL NEED [facility] RESUMPTION, DENIES FURTHER NEEDS. CM TO FOLLOW AND ASSIST NEEDED. ROSANNA Montaño DCP- Discharge Planning Updated by [id number]: Sandor Carrasquillo on 05/28/19 2:[address] Patient Name: TROY HAYWOOD Encounter No: [id number] : 1955 Primary Insurance: MEDICAID [place] Anticipated DC Date: Planned Disposition: Nursing Facility YUN Cert External Planned Provider: TO BE DETERMINED DCP follow-up note: CM SPOKE TO [facility], SHE INFORMED CM THAT UPDATES HAVE BEEN RECEIVED, PT IS NOT MAKING ENOUGH PROGRESS WITH THERAPY THAT THEY DO NOT BELIEVE THAT PT WILL BE ABLE TO ACHIEVE THERAPY GOALS IN THE REMAINING 10 DAYS OF ACUTE DAYS THAT PT HAS REMAINING. CM NOTIFIED PT AND PROVIDED PT WITH NURSING FACILITY LISTING OF ALL AVAILABLE FACILITIES WITHIN [address] [place]. PT WILL SPEAK TO HER DAUGHTER AND NOTIFY CM OF HER CHOICES. CM CALLED [facility], , TWICE; AUTOMATED MESSAGE INFORMED CM THAT THE NUMBER WAS RESTRICTED OR CURRENTLY UNAVAILABLE. CM WAITING PT AND FAMILY TO PROVIDE NURSING FACILITY CHOICES FOR FINANCIAL AID DIRECTOR CARE. Sandor Carrasquillo, CASE MANAGEMENT Appended by Sandor Carrasquillo on 05/28/2019 12:07 CDT: CM SPOKE TO PT IN ROOM, NOTIFIED PT THAT CM TRIED AND COULD NOT REACH DAUGHTER HOUSTON VIA PHONE. PT REPORTS SHE SPOKE TO [facility] WHO TOLD HER THAT [facility] WILL NOT TAKE HER DUE TO WEIGHT; PT'S DAUGHTER TOLD PT THAT [facility] WILL NOT TAKE HER. PT REPORTS THERE IS ONE IN [place] THAT MIGHT CONSIDER HER. CM OFFERED CHOICE FORM FOR SIGNATURE SO THAT CM COULD SEND REFERRALS AND BEGIN CALLING TO FIND PLACEMENT. PT REFUSED AND STATES SHE HAS A DAUGHTER, CHEPE, WHO IS A REGISTERED NURSE, THAT MAY BE COMING TO TAKE CARE OF PT AT HOME. PT'S DAUGHTER HOUSTON IS CALLING DAUGHTER CHEPE TO DISCUSS THE OPTION. PT STATES SHE WILL LET CM KNOW THE OUTCOME AND IF SHE WANTS CM TO EXPLORE SKILLED NURSING CARE FOR HER. CM WAITING PT AND FAMILY TO PROVIDE NURSING FACILITY CHOICES AND FOR PT TO SIGN CONSENT FOR SKILLED NURSING PLACEMENT. PT IS NOW HOPEFUL THAT HER DAUGHTER WHO IS A REGISTERED NURSE WILL COME AND STAY WITH PT AND TAKE CARE OF HER AT HOME. SANDOR CARRASQUILLO, CASE MANAGEMENT Appended by Sandor Carrasquillo on 05/28/2019 14:27 CDT: CM RECEIVED MESSAGE THAT PT WANTS TO SEE CM. CM MET WITH PT IN ROOM WHO INFORMED CM THAT SHE HIS NOT GOING TO A SKILLED NURSING, THAT HER DAUGHTER, CHEPE, WHO IS A NURSE, WILL BE HERE NEXT FRIDAY TO TAKE HER HOME AND WILL TAKE CARE OF PT AT HOME. PT ASKED FOR [facility] RESUMPTION. CM DISCUSSED POSSIBLE NEED OF DEBORAH LIFT AND ASKED ABOUT ADDITIONAL EQUIPMENT. PT THINKS BY NEXT WEEK, SHE WILL BE ABLE TO TRANSFER WITHOUT AIDE OF LIFT DEVICE. CM NOTIFIED DR. FREEDMAN WHO INFORMED CM THAT HE WILL ORDER BLOOD GAS ON FRIDAY TO DETERMINE RESPIRATORY DISCHARGE NEEDS AT THAT TIME. PT HAS SIGNED RIGHT OF CHOICE FOR [facility] ALREADY. PT REPORTS HER DAUGHTER, WHO IS A REGISTERED NURSE, WILL BE HERE FRIDAY OF NEXT WEEK TO TAKE CARE OF PT AT HOME. PT PLANS TO DISCHARGE HOME WITH FAMILY AND [facility]. CM TO FOLLOW AND ASSIST NEEDED. ROSANNA MONTAÑO DCP- Discharge Planning Updated by [email or web address]: Sandro Carrasquillo on 05/28/19 7:[address] Patient Name: TROY HAYWOOD Encounter No: [id number] : 1955 Primary Insurance: MEDICAID [place] Anticipated DC Date: Planned Disposition: Inpatient Rehab External Planned Provider: [facility] DCP follow-up note: CM FAXED REFERRAL UPDATE TO [facility] AT [phone]. CM WAITING ADMISSION DETERMINATION FROM [facility] IN [place]. ROSANNA Montaño DCP- Discharge Planning Updated by [id number]: Sandor Carrasquillo on 05/27/19 2:[address] Patient Name: TROY HAYWOOD Encounter No: [id number] : 1955 Primary Insurance: MEDICAID [place] Anticipated DC Date: Planned Disposition: Inpatient Rehab External Planned Provider: [facility] DCP follow-up note: CM FAXED REFERRAL UPDATE TO [facility] AT [phone]. CM WAITING ADMISSION DETERMINATION FROM [facility] IN [place]. ROSANNA Montaño MANAGEMENT Appended by Sandor Carrasquillo on 05/27/2019 14:41 CDT: CM CALLED [facility], , LEFT MESSAGE ASKING FOR UPDATE ON REFERRAL AND TO KNOW IF THEY ARE STILL CONSIDERING PT FOR REHAB. CM WAITING ADMISSION DETERMINATION FROM [facility] IN [place]. ROSANNA Montaño DCP- Discharge Planning Updated by [id number]: Jesica Cartagena on 05/26/19 4:[address] Patient requested Trapeze bar to allow her to sit up in hospital bed. CM spoke Dr. Lawson and obtained approval for Trapeze bar. CM notified Radha in materials management of request for Trapeze bar. CM completed and gave Radha the order form for the Trapeze bar. Trapeze bar will be delivered. CM notified patient's CM, Christiano Daquan, on status of Trapeze bar. DCP- Discharge Planning Updated by [id number]: Sandor Buttswell on 05/26/19 3:[address] Patient Name: TROY HAWYOOD Encounter No: [id number] : 1955 Primary Insurance: MEDICAID [facility] Date: Planned Disposition: Inpatient Rehab External Planned Provider: [facility] DCP follow-up note: CHRISTOPHER SPOKE TO PT'S DAUGHTER VIA PHONE, HOUSTON GERMAINBLOOD, . CHRISTOPHER OBTAINED PERMISSION FROM PT TO DISCUSS CARE, TREATMENT AND DISCHARGE PLANNING WITH [facility]. HOUSTON INFORMED CHRISTOPHER THAT PT WAS IN REHAB AT [facility] LAST YEAR AND THEY WANT REFERRED TO [facility] AGAIN. CHRISTOPHER DISCUSSED PT'S VERY LOW LEVEL OF PHYSICAL CONDITIONING. PT'S DAUGHTER FEELS THAT PT CAN PARTICIPATE WITH THERAPY WITH GOAL TO RETURN HOME PREVIOUS WITH ABILITY TO TRANSFER TO ELECTRIC SCOOTER AND HOME HEALTH FOR CONTINUED HOME SERVICES. HOUSTON VERIFIED THAT PT HAS NO ADULTS ABLE TO LIVE WITH AND ASSIST PT AT HOME AT THIS TIME. [facility] ASKED ABOUT [facility] THAT MAY TAKE PT AT NO COSTS DUE TO INCOME. CHRISTOPHER INFORMED HOUSTON THAT CHRISTOPHER WAS NOT FAMILIAR WITH ANY OF THESE PROGRAMS. [facility] WOULD LIKE TO HAVE PT EVALUATED FOR REHAB AT [facility] PRIOR TO ANY CONSIDERATION OF SKILLED NURSING PLACEMENT PT WILL NOT GET THERAPY THERE. CHRISTOPHER SPOKE TO PT WHO IS IN AGREEMENT WITH PLAN. CHRISTOPHER CALLED [facility], , NOTIFIED OF REHAB REQUEST; PT HAS ONLY 24 ACUTE DAYS THAT STARTED IN JANUARY, IT DEPENDS ON HOW MANY HAVE BEEN ALREADY USED, PT'S CONDITION AND NEEDS THAT WOULD HAVE TO BE MET IN THE REMAINING DAYS THAT PT HAS TO USE FOR REHAB . CHRISTOPHER FAXED REFERRALINFORMATION TO [facility] WITH CURRENT MAR AT [phone]. CM WAITING ADMISSION DETERMINATION FROM [facility] IN [place]. Sandor Carrasquillo, CASE MANAGEMENT Appended by Sandor Carrasquillo on 05/26/2019 15:24 CDT: CM MET WITH PT, GRANDDAUGHTER, DAUGHTER HOUSTON VIA PHONE WITH CM HOUSESMITH, UNIT NURSE PEAT SHREDDER TENDER, REPIRATORY THERAPIST AND HOUSESMITH OF THERAPY SERVICES REGARDING DISCHARGE PLANNING. CONCERNS OF PT'S PLAN TO GO HOME IN CURRENT CONDITION DISCUSSED. PT AND DAUGHTER HAVE ALREADY ASKED FOR REFERRAL TO [facility], CM HAS SENT IT AND WAITING DETERMINATION. PLAN "B" WAS AGREED TO BE NURSING FACILITY IF NOT ACCEPTED TO [facility] AND THAT CM WOULD ATTEMPT TO FIND ONE THAT MAY DONATE REHAB SERVICES. PT'S DAUGHTER IS RESEARCHING [employer]DING FROM [facility] FOR REHAB SERVICES. CM WAITING ADMISSION DETERMINATION FROM [facility] IN [place]. Sandor Carrasquillo, CASE MANAGEMENT DCP- Discharge Planning Updated by [id number]: Sandor Carrasquillo on 05/25/19 2:[address] Patient Name: TROY HAYWOOD Encounter No: [id number] : 1955 Primary Insurance: MEDICAID [facility] Date: Planned Disposition: Home HEALTH External Planned Provider: [facility] [address], [facility]ISITING NURSES [facility] follow-up note: CM MET WITH PT IN ROOM TO DISCUSS DISCHARGE NEEDS AND PLANNING. CM DISCUSSED AVAILABILITY OF HOME HEALTH, REHAB SERVICES AND MEDICAL EQUIPMENT. PT REFUSES LONGTERM FACILITY PLACEMENT. PT STATES PLAN TO RETURN HOME. 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 PT WAS ABLE TO AMBULATE SMALL DISTANCES AND TRANSFER SELF FROM BED TO ELECTRIC WHEELCHAIR AT HOME. PT THINKS SHE IS GOING TO BE ABLE TO TRANSFER SELF TO GO BACK HOME. PT WANTS HOME HEALTH RESUMED TO GO HOME. CM EXPRESSED CONCERN OF PT'S CURRENT LEVEL OF FUNCTIONING AND RETURNING HOME. PT DENIES HAVING FRIENDS OR FAMILY TO ASSIST WITH HER CARE AT HOME BUT IS NOT GOING TO A SKILLED NURSING. PT THINKS SHE WILL NEED AN AMBULANCE FOR TRANSPORT HOME HER ELECTRIC WHEELCHAIR IS THERE. CM EXPLAINED TO PT THAT SHE WILL NEED TO DEMONSTRATE WITH THERAPY THE ABILITY TO TRANSFER AND SIT IN CHAIR FOR DISCHARGE. PT STATED UNDRESTANDING. CHOICE FOR [facility] ON [facility] VIS[facility]ING NURSES HOME HEALTH SIGNED. 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 PT REFUSED NURSING FACILITY PLACEMENT. PT WILL NEED TO DEMONSTRATE ABILITY TO TRANSFER AND SIT IN CHAIR FOR DISCHARGE SHE HAS ELECTRIC WHEELCHAIR AT HOME. CM TO ARRANGE HOME HEALTH RESUMPTION WITH [facility] ON AGING VISITING NURSES AGENCY IN [place] FOR DISCHARGE HOME. CM TO CONTINUE TO FOLLOW AND ASSIST NEEDED. Sandor Carrasquillo, CASE MANAGEMENT DCP- Discharge Planning Updated by [id number]: Aleisha Monroe on 05/19/19 7:[address] Patient Name: TROY HAYWOOD Admission Status: ER Accout number: [id number] Admission Date: 05-14-2019 : 1955 Admission Diagnosis: Attending: FABIO PINEDA Current LOS: 5 Anticipated DC Date: Planned Disposition: Home or Self Care Primary Insurance: MEDICAID [place] Discharge Planning Comments: CM met with patient and daughter to complete initial dc planning assessment. Patient recently extubated earlier today. CM educated patient on the CM role and verbal consent given by patient to complete assessment. Patient lives at home with her two young grand-daughters where she is independent with her care. At discharge patient plans to return home and feels this is a safe discharge. CM discussed availability of home health, rehab services, and medical equipment. Patient has Home 02 and HH with unknown providers. CM will f/u with patient @ later date to see if she is able to give providers. Patient denied known discharge needs at this time. CM will continue to follow and will assist as needed with dc plans/needs. Picker / Packer: Aleisha Monroe DCPIA - Discharge Planning Initial Assessment Updated by [id number]: Sandor Carrasquillo on 05/28/19 9:36 am * How many steps to enter\\exit or inside your home? * PCP uncertain ? * Pharmacy [address] * Preadmission Environment Home with Family * ADLs Independent * Other Equipment HOME 02, WALKER, SCOOTER, BSC, SC * List name and contact numbers for known caregivers / representatives who currently or will assist patient after discharge: CHEPE SUN - DAUGHTER- [phone] HOUSTON SALGADO, DTR - [phone] * Verbal permission to speak to the caregivers and representatives has been obtained from the patient. Yes * Community resources currently utilized Home Health * Please name any agencies selected above. [facility] * Additional services required to return to the preadmission environment? No * Can the patient safely return to the preadmission environment? Yes * Has this patient been hospitalized within the prior 30 days at any hospital? No Coverage Notice Reviewer: [id number] Josef Carrasquillo Notice Issued Date-Time: 05/25/2019 14:05 Notice Type: Patient Choice Letter Notice Delivered To: Patient Relationship to Patient: Sales Engineering Manager Name: Delivery Method: HAND - Hand Delivered Marry Days: Prior Verbal Notification: Recipient Understood Notice: Yes Recipient Signature: Yes Med Rec Note Co-signed by Attending: Coverage Notice Comment: [facility]- VISITING [facility] Reviewer: [id number] Josef Carrasquillo Notice Issued Date-Time: 05/31/2019 14:50 Notice Type: Patient Choice Letter Notice Delivered To: Patient Relationship to Patient: Sales Engineering Manager Name: Delivery Method: HAND - Hand Delivered Marry Days: Prior Verbal Notification: Recipient Understood Notice: Yes Recipient Signature: Yes Med Rec Note Co-signed by Attending: Coverage Notice Comment: [facility] Last DP export: 05/31/19 3:02 p Patient Name: TROY HAYWOOD Page [id number] at 1645 All edits/amendments must be made on the electronic document DICTATION DATE: 05/31/191643 APPLIED RESEARCH DIRECTOR: MISHEL 05/31/191643 RPT#: [id number] DC DATE: STATUS: ADM IN [facility] [address] [place] [address] END OF REPORT
--- NOTE | 2019-05-31 16:53 | MORECARE ---
CASE MANAGEMENT DISCHARGE SUMMARY PATIENT: TROY HAYWOOD UNIT: [id number] ADM DATE: 05/14/19 AGE: 64 : 57 SEX: F ROOM/BED: D.2140 AUTHOR: DAYDAYDOC PHYSICIAN: REFERRING PHYSICIAN: FABIO PINEDA MD DATE OF SERVICE: 05/31/19 Discharge Plan Patient Name: TROY HAYWOOD Facility: [facility]:[place] : 1955 Planned Disposition: Nursing Facility YUN Cert Anticipated Discharge Date: 06/01/19 Discharge Date: Expected LOS: 18 Initial Reviewer: [id number] Initial Review Date: 05/19/2019 Generated: 05/31/19 5:53 pm Comments DCP- Discharge Planning Updated by [id number]: Sandor Carrasquillo on 05/31/19 3:[address] Patient Name: TROY HAYWOOD Encounter No: [id number] : 1955 Primary Insurance: [place]ID [place] Anticipated DC Date: 06-01-2019 Planned Disposition: Nursing Facility YUN Cert External Planned Provider[facility]IT[facility] MEDICAID BED DCP follow-up note: AFTER SEVERAL VISITS WITH PT IN ROOM, PHONE CALLS WITH DAUGHTERS, [employer] [facility] AND [facility], PT DECIDED TO CONSENT TO 30 DAYS OF SIDE PANEL HANGER CARE AT [facility] AFTER PT'S DAUGTHERS, WITH AIDE OF [facility], LOCATED [facility] WHO WILL CONSIDER PT FOR CARE. PT SIGNED CHOICE. CM FAXED REFERRAL INFORMATION TO [facility] AT [phone]. CM WAITING ADMISSION DETERMINATION FROM [facility] AND [facility] FOR SIDE PANEL HANGER CARE. Sandor Carrasquillo CASE DEVAUGHN DCP- Discharge Planning Updated by [email or web address]: Sandor Carrasquillo on 05/28/19 3:[address] Patient Name: TROY HAYWOOD Encounter No: [id number] : 1955 Primary Insurance: [place]ID [place] Anticipated DC Date: 06-02-2019 Planned Disposition: Home with Home Health External Planned Provider: [facility] DCP follow-up note: CM RECEIVED CALL FROM PT'S DAUGHTER, CHEPE, WHO VERIFIED THAT SHE WILL COME NEXT WEEK TO STAY WITH PT FOR TWO OR THREE WEEKS TO CARE FOR PT AT HOME. CHEPE WILL DISCUSS WITH HER MOTHER THAT SHE WILL HAVE TO BE ABLE TO STAND AND TRANSFER FOR CHEPE TO CARE FOR HER. CM REVIEWED THERAPY NOTES TO PRESENT. CHEPE REPORTS SHE IS A NURSE, HAS USED DEOBRAH LIFT IN THE PAST AND PT HAS CARPET AND A LIFT WILL NOT ROLL ON THE FLOOR TO ASSIST WITH TRANSFERS. PT HAS BEDSIDE COMMODE AND WHEELCHAIR AT HOME. CHEPE REPORTS NEED OF [facility]. CHEPE WILL DISCUSS WITH PT AND TRY TO MOTIVATE HER TO MEET THERAPY GOALS PRIOR TO ARRIVAL ON NEXT FRIDAY OR FRIDAY. PT'S DAUGHTER PLANS TO TAKE PT HOME NEXT FRIDAY OR FRIDAY, THEY WILL NEED [facility], DENIES FURTHER NEEDS. CM TO FOLLOW AND ASSIST NEEDED. Sandor Carrasquillo, CASE MANAGEMENT DCP- Discharge Planning Updated by [id number]: Sandor Carrasquillo on 05/28/19 2:[address] Patient Name: TROY HAYWOOD Encounter No: [id number] : 1955 Primary Insurance: [place] Anticipated DC Date: Planned Disposition: Nursing Facility YUN Cert External Planned Provider: TO BE DETERMINED DCP follow-up note: CM SPOKE TO [facility], SHE INFORMED CM THAT UPDATES HAVE BEEN RECEIVED, PT IS NOT MAKING ENOUGH PROGRESS WITH THERAPY THAT THEY DO NOT BELIEVE THAT PT WILL BE ABLE TO ACHIEVE THERAPY GOALS IN THE REMAINING 10 DAYS OF ACUTE DAYS THAT PT HAS REMAINING. CM NOTIFIED PT AND PROVIDED PT WITH NURSING FACILITY LISTING OF ALL AVAILABLE FACILITIES WITHIN [address] [place]. PT WILL SPEAK TO HER DAUGHTER AND NOTIFY CM OF HER CHOICES. CM CALLED [facility], , TWICE; AUTOMATED MESSAGE INFORMED CM THAT THE NUMBER WAS RESTRICTED OR CURRENTLY UNAVAILABLE. CM WAITING PT AND FAMILY TO PROVIDE NURSING FACILITY CHOICES FOR PENITENTIARY CARE. Sandor Carrasquillo, CASE MANAGEMENT Appended by Sandor Carrasquillo on 05/28/2019 12:07 CDT: CM SPOKE TO PT IN ROOM, NOTIFIED PT THAT CM TRIED AND COULD NOT REACH DAUGHTER HOUSTON VIA PHONE. PT REPORTS SHE SPOKE TO [facility] WHO TOLD HER THAT [facility] WILL NOT TAKE HER DUE TO WEIGHT; PT'S DAUGHTER TOLD PT THAT [facility] WILL NOT TAKE HER. PT REPORTS THERE IS ONE IN [place] THAT MIGHT CONSIDER HER. CM OFFERED CHOICE FORM FOR SIGNATURE SO THAT CM COULD SEND REFERRALS AND BEGIN CALLING TO FIND PLACEMENT. PT REFUSED AND STATES SHE HAS A DAUGHTER, CHEPE, WHO IS A REGISTERED NURSE, THAT MAY BE COMING TO TAKE CARE OF PT AT HOME. PT'S DAUGHTER [facility] IS CALLING DAUGHTER CHEPE TO DISCUSS THE OPTION. PT STATES SHE WILL LET CM KNOW THE OUTCOME AND IF SHE WANTS CM TO EXPLORE INTERMEDIATE CARE FOR HER. CM WAITING PT AND FAMILY TO PROVIDE NURSING FACILITY CHOICES AND FOR PT TO SIGN CONSENT FOR INTERMEDIATE PLACEMENT. PT IS NOW HOPEFUL THAT HER DAUGHTER WHO IS A REGISTERED NURSE WILL COME AND STAY WITH PT AND TAKE CARE OF HER AT HOME. SANDOR CARRASQUILLO, CASE MANAGEMENT Appended by Sandor Carrasquillo on 05/28/2019 14:27 CDT: CM RECEIVED MESSAGE THAT PT WANTS TO SEE CM. CM MET WITH PT IN ROOM WHO INFORMED CM THAT SHE HIS NOT GOING TO A INTERMEDIATE, THAT HER DAUGHTER, CHEPE, WHO IS A NURSE, WILL BE HERE NEXT FRIDAY TO TAKE HER HOME AND WILL TAKE CARE OF PT AT HOME. PT ASKED FOR [facility]. CM DISCUSSED POSSIBLE NEED OF DEBORAH LIFT AND ASKED ABOUT ADDITIONAL EQUIPMENT. PT THINKS BY NEXT WEEK, SHE WILL BE ABLE TO TRANSFER WITHOUT AIDE OF LIFT DEVICE. CM NOTIFIED DR. FREEDMAN WHO INFORMED CM THAT HE WILL ORDER BLOOD GAS ON FRIDAY TO DETERMINE RESPIRATORY DISCHARGE NEEDS AT THAT TIME. PT HAS SIGNED RIGHT OF CHOICE FOR [facility] ALREADY. PT REPORTS HER DAUGHTER, WHO IS A REGISTERED NURSE, WILL BE HERE FRIDAY OF NEXT WEEK TO TAKE CARE OF PT AT HOME. PT PLANS TO DISCHARGE HOME WITH FAMILY AND [facility]. CM TO FOLLOW AND ASSIST NEEDED. ROSANNA MONTAÑO DCP- Discharge Planning Updated by [id number]: Sandor Carrasquillo on 05/28/19 7:[address] Patient Name: TROY HAYWOOD Encounter No: [id number] : 1955 Primary Insurance: MEDICAID [facility] Date: Planned Disposition: Inpatient Rehab External Planned Provider: [facility] DCP follow-up note: CM FAXED REFERRAL UPDATE TO [facility] AT [phone]. CM WAITING ADMISSION DETERMINATION FROM [facility] IN [place]. Sandor Daquan, CASE MANAGEMENT DCP- Discharge Planning Updated by [id number]: Sandor Carrasquillo on 05/27/19 2:[address] Patient Name: TROY HAYWOOD Encounter No: [id number] : 1955 Primary Insurance: [place] Anticipated DC Date: Planned Disposition: Inpatient Rehab External Planned Provider: [facility] DCP follow-up note: CM FAXED REFERRAL UPDATE TO [facility] AT [phone]. CM WAITING ADMISSION DETERMINATION FROM [facility] IN [place]. Sandor Carrasquillo, CASE MANAGEMENT Appended by Sandor Carrasquillo on 05/27/2019 14:41 CDT: CM CALLED [facility], , LEFT MESSAGE ASKING FOR UPDATE ON REFERRAL AND TO KNOW IF THEY ARE STILL CONSIDERING PT FOR REHAB. CM WAITING ADMISSION DETERMINATION FROM [facility] IN [place]. Sandor Carrasquillo, CASE MANAGEMENT DCP- Discharge Planning Updated by [id number]: Jesica Cartagena on 05/26/19 4:[address] Patient requested Trapeze bar to allow her to sit up in hospital bed. CM spoke Dr. Lawson and obtained approval for Trapeze bar. CM notified Radha in materials management of request for Trapeze bar. CM completed and gave Radha the order form for the Trapeze bar. Trapeze bar will be delivered. CM notified patient's CM, Christiano Carrasquillo, on status of Trapeze bar. DCP- Discharge Planning Updated by [id number]: Sandor Carrasquillo on 05/26/19 3:[address] Patient Name: TROY HAYWOOD Encounter No: [id number] : 1955 Primary Insurance: [place] Anticipated DC Date: Planned Disposition: Inpatient Rehab External Planned Provider: [facility] DCP follow-up note: CM SPOKE TO PT'S DAUGHTER VIA PHONE, HOUSTON SALGADO, . CM OBTAINED PERMISSION FROM PT TO DISCUSS CARE, TREATMENT AND DISCHARGE PLANNING WITH BRANDY. CONRAD INFORMED CM THAT PT WAS IN REHAB AT [facility] LAST YEAR AND THEY WANT REFERRED TO [facility] AGAIN. CM DISCUSSED PT'S VERY LOW LEVEL OF PHYSICAL CONDITIONING. PT'S DAUGHTER FEELS THAT PT CAN PARTICIPATE WITH THERAPY WITH GOAL TO RETURN HOME PREVIOUS WITH ABILITY TO TRANSFER TO ELECTRIC SCOOTER AND HOME HEALTH FOR CONTINUED HOME SERVICES. [facility] VERIFIED THAT PT HAS NO ADULTS ABLE TO LIVE WITH AND ASSIST PT AT HOME AT THIS TIME. [facility] THAT MAY TAKE PT AT NO COSTS DUE TO INCOME. CM INFORMED [facility] THAT CM WAS NOT FAMILIAR WITH ANY OF THESE PROGRAMS. [facility] WOULD LIKE TO HAVE PT EVALUATED FOR REHAB AT [facility] PRIOR TO ANY CONSIDERATION OF INTERMEDIATE PLACEMENT PT WILL NOT GET THERAPY THERE. CM SPOKE TO PT WHO IS IN AGREEMENT WITH PLAN. CM CALLED [facility], , NOTIFIED OF REHAB REQUEST; PT HAS ONLY 24 ACUTE DAYS THAT STARTED IN JANUARY, IT DEPENDS ON HOW MANY HAVE BEEN ALREADY USED, PT'S CONDITION AND NEEDS THAT WOULD HAVE TO BE MET IN THE REMAINING DAYS THAT PT HAS TO USE FOR REHAB . CM FAXED REFERRALINFORMATION TO [facility] WITH CURRENT MAR AT [phone]. CM WAITING ADMISSION DETERMINATION FROM [facility] IN [place]. Sandor Carrasquillo, CASE MANAGEMENT Appended by Sandor Carrasquillo on 05/26/2019 15:24 CDT: CM MET WITH PT, GRANDDAUGHTER, DAUGHTER HOUSTON VIA PHONE WITH CM CENTRAL OFFICE MECHANIC, UNIT NURSE LOSS PREVENTION OFFICER, REPIRATORY THERAPIST AND CENTRAL OFFICE MECHANIC OF THERAPY SERVICES REGARDING DISCHARGE PLANNING. CONCERNS OF PT'S PLAN TO GO HOME IN CURRENT CONDITION DISCUSSED. PT AND DAUGHTER HAVE ALREADY ASKED FOR REFERRAL TO [facility] RE[facility], CM HAS SENT IT AND WAITING DETERMINATION. PLAN "B" WAS AGREED TO BE NURSING FACILITY IF NOT ACCEPTED TO [facility] AND THAT CM WOULD ATTEMPT TO FIND ONE THAT MAY DONATE REHAB SERVICES. PT'S DAUGHTER IS RESEARCHING [employer] FUNDING FROM [facility] FOR REHAB SERVICES. CM WAITING ADMISSION DETERMINATION FROM [facility] IN [place]. Sandor Carrasquillo CASE MANAGEMENT DCP- Discharge Planning Updated by [id number]: Sandor Carrasquillo on 05/25/19 2:[address] Patient Name: TROY HAYWOOD Encounter No: [id number] : 1955 Primary Insurance: MEDICAID [facility] Date: Planned Disposition: Home HEALTH External Planned Provider: [facility] [place], [facility] follow-up note: CM MET WITH PT IN ROOM TO DISCUSS DISCHARGE NEEDS AND PLANNING. CM DISCUSSED AVAILABILITY OF HOME HEALTH, REHAB SERVICES AND MEDICAL EQUIPMENT. PT REFUSES HALFWAY FACILITY PLACEMENT. PT STATES PLAN TO RETURN HOME. 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 PT WAS ABLE TO AMBULATE SMALL DISTANCES AND TRANSFER SELF FROM BED TO ELECTRIC WHEELCHAIR AT HOME. PT THINKS SHE IS GOING TO BE ABLE TO TRANSFER SELF TO GO BACK HOME. PT WANTS HOME HEALTH RESUMED TO GO HOME. CM EXPRESSED CONCERN OF PT'S CURRENT LEVEL OF FUNCTIONING AND RETURNING HOME. PT DENIES HAVING FRIENDS OR FAMILY TO ASSIST WITH HER CARE AT HOME BUT IS NOT GOING TO A INTERMEDIATE. PT THINKS SHE WILL NEED AN AMBULANCE FOR TRANSPORT HOME HER ELECTRIC WHEELCHAIR IS THERE. CM EXPLAINED TO PT THAT SHE WILL NEED TO DEMONSTRATE WITH THERAPY THE ABILITY TO TRANSFER AND SIT IN CHAIR FOR DISCHARGE. PT STATED UNDRESTANDING. CHOICE FOR [facility] [place] VISITING NURSES HOME HEALTH SIGNED. 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 PT REFUSED NURSING FACILITY PLACEMENT. PT WILL NEED TO DEMONSTRATE ABILITY TO TRANSFER AND SIT IN CHAIR FOR DISCHARGE SHE HAS ELECTRIC WHEELCHAIR AT HOME. CM TO ARRANGE HOME HEALTH RESUMPTION WITH [facility] VISITING N[facility]ES [facility] IN [place] FOR DISCHARGE HOME. CM TO CONTINUE TO FOLLOW AND ASSIST NEEDED. Sandor Carrasquillo, CASE MANAGEMENT DCP- Discharge Planning Updated by [id number]: Aleisha Monroe on 05/19/19 7:[address] Patient Name: TROY HAYWOOD Admission Status: ER Accout number: [id number] Admission Date: 05-14-2019 : 1955 Admission Diagnosis: Attending: FABIO PINEDA Current LOS: 5 Anticipated DC Date: Planned Disposition: Home or Self Care Primary Insurance: [place] Discharge Planning Comments: CM met with patient and daughter to complete initial dc planning assessment. Patient recently extubated earlier today. CM educated patient on the CM role and verbal consent given by patient to complete assessment. Patient lives at home with her two young grand-daughters where she is independent with her care. At discharge patient plans to return home and feels this is a safe discharge. CM discussed availability of home health, rehab services, and medical equipment. Patient has Home 02 and HH with unknown providers. CM will f/u with patient @ later date to see if she is able to give providers. Patient denied known discharge needs at this time. CM will continue to follow and will assist as needed with dc plans/needs. Telephone Solicitor: Aleisha BEAVERS - Discharge Planning Initial Assessment Updated by NAYLA: Sandor Carrasquillo on 05/28/19 9:36 am * How many steps to enter\\exit or inside your home? * PCP uncertain ? * Pharmacy [facility] * Preadmission Environment Home with Family * ADLs Independent * Other Equipment HOME 02, WALKER, SCOOTER, BSC, SC * List name and contact numbers for known caregivers / representatives who currently or will assist patient after discharge: CHEPE SUN - DAUGHTER- [phone] HOUSTON SALGADO, DTR - [phone] * Verbal permission to speak to the caregivers and representatives has been obtained from the patient. Yes * Community resources currently utilized Home Health * Please name any agencies selected above. [facility] * Additional services required to return to the preadmission environment? No * Can the patient safely return to the preadmission environment? Yes * Has this patient been hospitalized within the prior 30 days at any hospital? No Coverage Notice Reviewer: NAYLA Carrasquillo Notice Issued Date-Time: 05/25/2019 14:05 Notice Type: Patient Choice Letter Notice Delivered To: Patient Relationship to Patient: Telephone Order Clerk Name: Delivery Method: HAND - Hand Delivered Marry Days: Prior Verbal Notification: Recipient Understood Notice: Yes Recipient Signature: Yes Med Rec Note Co-signed by Attending: Coverage Notice Comment: [facility]ES [facility] Reviewer: [email or web address] Carrasquillo Notice Issued Date-Time: 05/31/2019 14:50 Notice Type: Patient Choice Letter Notice Delivered To: Patient Relationship to Patient: Telephone Order Clerk Name: Delivery Method: HAND - Hand Delivered Marry Days: Prior Verbal Notification: Recipient Understood Notice: Yes Recipient Signature: Yes Med Rec Note Co-signed by Attending: Coverage Notice Comment: [facility] Last DP export: 05/31/19 3:02 p Patient Name: TROY HAYWOOD Page [id number] at 1653 All edits/amendments must be made on the electronic document DICTATION DATE: 05/31/191652 SIGNALER: MISHEL 05/31/191652 RPT#: [id number] DC DATE: STATUS: ADM IN [facility] [address] [facility] [place] [address] END OF REPORT
[2019-05-31 20:00] VITALS: BP 111/57
--- NOTE | 2019-05-31 20:00 | NUR ---
PT RESTING IN BED ALERT AND ORIENTED X4. NO S/S OF DISTRESS AT THIS TIME. PT DENIES ANY PAIN OR FURTHER NEEDS. BED LOW CALL LIGHT WITHIN REACH. WILL CONTINUE TO MONITOR.
[2019-06-01] VITALS: BP 131/61
[2019-06-01 04:00] VITALS: BP 101/50
[2019-06-01 05:10] LABS: BASOPHILS 0.7 % (0-2); EOSINOPHILS 5.2 % (0-7); HEMATOCRIT 29.2 % (36.0-48.0); HEMOGLOBIN 8.4 g/dL (12-16); IMMATURE GRANULOCYTES 0.2 % (0-5); LYMPHOCYTES 16.4 % (15-50); MCH 26.8 pg (26.0-34.0); MCHC 28.8 g/dL (31.0-37.0); MEAN PLATELET VOLUME 10.4 fL (7.4-10.4); MONOCYTES 11.2 % (2-11); NEUTROPHILS 66.3 % (40-80); PLATELET COUNT 240 10x3/uL (130-400); RBC 3.14 10x6/uL (4.00-5.40); RDW 17.2 % (11.5-14.5); WBC 5.5 10x3/uL (4.8-10.8)
[2019-06-01 05:53] LABS: ANION GAP 8.6 mmol/L (8-16); CALCIUM 8.8 mg/dL (8.5-10.1); CARBON DIOXIDE 26.4 mmol/L (21.0-32.0); CREATININE - SERUM 1.1 mg/dL (0.6-1.3); MAGNESIUM - SERUM 1.5 mg/dL (1.8-2.4)
--- NOTE | 2019-06-01 07:50 | NUR ---
PT RESTING, EYES CLOSED. BIPAP IN PLACE. RR EVEN AND UNLABORED. NO DISTRESS NOTED. BED IN LOWEST POSITON. CALL LIGHT WITHIN REACH. WILL CONTINUE TO MONITOR.
[2019-06-01 08:41] VITALS: BP 106/49
--- NOTE | 2019-06-01 10:12 | NUR ---
OT NOTE: PT PERFORMED VERY WELL TODAY. EXTENSIVE EDUCATION ON SUPINE TO SIT..ATTEMPTED SEVERAL DIFFERENT WAYS AND FINALLY DID BETTER USING TRAPEZE AND MOVING FEET OFF OF BED VS ROLLING ON SIDE AND SITTING UP. TOLERATED SITTING ON EOB X APPROX 10 MIN; TODAY PT WAS ABLE TO PERFORM SIT TO STAND FOR FIRST TIME WITH WALKER AND MAX ASSIST X 2; ABLE TO STAY STANDING X APPROX 20 SECS DURING EACH TRIAL. MAX ASSIST TO WASH BACK AND LES. PT ABLE TO WASH FACE AND HANDS WITH CLOTH WITH SET UP. BACK TO BED WITH MOD/MAX ASSIST; MAX ASSIST ON REPOSITIONING. EDUCATION ON EXS TO PERFORM WHILE IN BED; ALSO INSTRUCTED PT TO ROLL FROM SIDE TO SIDE WITH USE OF GRAB BARS. THIS IS DIFFICULT BUT SHE IS ABLE TO PERFORM WITHOUT ASSIST. SAÚL ESCAMILLA, OTR/L
--- NOTE | 2019-06-01 11:08 | NUR ---
I have reviewed this patient and I concur with the Shift Assessment completed by the Licensed Practical Nurse today this shift.
--- NOTE | 2019-06-01 12:36 | NUR ---
CVL DRESSING CHANGED, NOW CDI.
[2019-06-01 13:00] VITALS: BP 113/48
--- NOTE | 2019-06-01 14:41 | NUR ---
YARN INSPECTOR REPORT A RUN OF VTAC. EKG PERFORMED. NORMAL SINUS. VSS AT THIS TIME. RR EVEN AND UNLABORED. PT STATES SHE FEELS FINE. DR. MEHTA NOTIFIED. NO ORDERS RECIEVED AT THIS TIME. WILL CONTINUE TO MONITOR.
--- NOTE | 2019-06-01 15:26 | NUR ---
Nutrition Follow-up: Reports overall good appetite/PO intake with no difficulty chewing/swallowing. C/o constipation stating last BM was "a long time ago". Diet: Renal, Mechanical Soft (Chopped Meats with Gravy) and Thin Liquids PO intake: 75% avg x 4 meals No new wt Last BM: 05/19 per chart Labs noted: Mg 1.5 Meds noted: Miralax, Colace, MagOx -Rec cardiac diet. -RD following.
--- NOTE | 2019-06-01 16:21 | NUR ---
OT NOTE: PT COMPLETED BED MOB TASKS WITH MAX A. PT COMPLETED SUPINE TO SIT WITH MAX A. PT COMPLETED SIT TO STAND WITH MAX A. PT COMPLETED UE AROM AXS. THANK YOU, BLADIMIR MANCERA
[2019-06-01 16:38] VITALS: BP 125/45
--- NOTE | 2019-06-01 17:10 | MORECARE ---
CASE MANAGEMENT DISCHARGE SUMMARY PATIENT: TROY HAYWOOD UNIT: [id number] ADM DATE: 05/14/19 AGE: 64 : 57 SEX: F ROOM/BED: D.3180 AUTHOR: DAYDAY,DOC PHYSICIAN: REFERRING PHYSICIAN: FABIO PINEDA MD DATE OF SERVICE: 06/01/19 Discharge Plan Patient Name: TROY HAYWOOD Facility: [facility]:[place] : 1955 Planned Disposition: Nursing Facility [facility] Cert Anticipated Discharge Date: 06/02/19 Discharge Date: Expected LOS: 19 Initial Reviewer: [id number] Initial Review Date: 05/19/2019 Generated: 06/01/19 6:09 pm Comments DCP- Discharge Planning Updated by [id number]: Sandor Carrasquillo on 06/01/19 4:[address] Patient Name: TROY HAYWOOD Encounter No: [id number] : 1955 Primary Insurance: MEDICAID [place] Anticipated DC Date: 06-02-2019 Planned Disposition: Nursing Facility [facility] Cert External Planned Provider: [facility], HALFWAY CARE MEDICAID BED DCP follow-up note: CM MET WITH PT AND DAUGHTER HOUSTON, WHO HAS MADE IT FROM [place]. UPDATE PROVIDED. CM CALLED [facility], DALE INFORMED CM THAT REFERRAL FROM AND [facility] WAS RECEIVED, STAFF IN MEETING TODAY AND THEY WILL FINISH ADMISSION REVIEW TOMORROW, 06-02-19. CM NOTIFIED PT AND DAUGHTER IN ROOM. CM WAITING ADMISSION DETERMINATION FROM [facility] FOR HALFWAY CARE. Sandor Carrasquillo CASE DEVAUGHN DCP- Discharge Planning Updated by [id number]: Sandor Carrasquillo on 05/31/19 3:[address] Patient Name: TROY HAYWOOD Encounter No: [id number] : 1955 Primary Insurance: [place]ID [place] Anticipated DC Date: 06-01-2019 Planned Disposition: Nursing Facility YUN Cert External Planned Provider: [facility], WEB MARKETING MANAGER CARE MEDICAID BED DCP follow-up note: AFTER SEVERAL VISITS WITH PT IN ROOM, PHONE CALLS WITH DAUGHTERS, [facility] AND [facility], PT DECIDED TO CONSENT TO 30 DAYS OF WEB MARKETING MANAGER CARE AT [facility] AFTER PT'S DAUGTHERS, WITH AIDE OF [facility], LOCATED [facility] WHO WILL CONSIDER PT FOR CARE. PT SIGNED CHOICE. CM FAXED REFERRAL INFORMATION TO [facility] AT [phone]. CM WAITING ADMISSION DETERMINATION FROM [facility] FOR HALFWAY CARE. ROSANNA Monroe MANAGEMENT DCP- Discharge Planning Updated by [id number]: Sandor Carrasquillo on 05/28/19 3:[address] Patient Name: TROY HAYWOOD Encounter No: [id number] : 1955 Primary Insurance: MEDICAID [place] Anticipated DC Date: 06-02-2019 Planned Disposition: Home with Home Health External Planned Provider: [facility] DCP follow-up note: CM RECEIVED CALL FROM PT'S DAUGHTER, CHEPE, WHO VERIFIED THAT SHE WILL COME NEXT WEEK TO STAY WITH PT FOR TWO OR THREE WEEKS TO CARE FOR PT AT HOME. CHEPE WILL DISCUSS WITH HER MOTHER THAT SHE WILL HAVE TO BE ABLE TO STAND AND TRANSFER FOR CHEPE TO CARE FOR HER. CM REVIEWED THERAPY NOTES TO PRESENT. 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 PT HAS BEDSIDE COMMODE AND WHEELCHAIR AT HOME. CHEPE REPORTS NEED OF [facility] RESUMPTION. CHEPE WILL DISCUSS WITH PT AND TRY TO MOTIVATE HER TO MEET THERAPY GOALS PRIOR TO ARRIVAL ON NEXT FRIDAY OR FRIDAY. PT'S DAUGHTER PLANS TO TAKE PT HOME NEXT FRIDAY OR FRIDAY, THEY WILL NEED [facility] RES[facility], DENIES FURTHER NEEDS. CM TO FOLLOW AND ASSIST NEEDED. Sandor Carrasquillo CASE MANAGEMENT DCP- Discharge Planning Updated by [id number]: Sandor Carrasquillo on 05/28/19 2:[address] Patient Name: TROY HAYWOOD Encounter No: [id number] : 1955 Primary Insurance: [place]ID [place] Anticipated DC Date: Planned Disposition: Nursing Facility [facility] External Planned Provider: TO BE DETERMINED DCP follow-up note: CM SPOKE TO [facility], SHE INFORMED CM THAT UPDATES HAVE BEEN RECEIVED, PT IS NOT MAKING ENOUGH PROGRESS WITH THERAPY THAT THEY DO NOT BELIEVE THAT PT WILL BE ABLE TO ACHIEVE THERAPY GOALS IN THE REMAINING 10 DAYS OF ACUTE DAYS THAT PT HAS REMAINING. CM NOTIFIED PT AND PROVIDED PT WITH NURSING FACILITY LISTING OF ALL AVAILABLE FACILITIES WITHIN [address] [place]. PT WILL SPEAK TO HER DAUGHTER AND NOTIFY CM OF HER CHOICES. CM CALLED [facility], , TWICE; AUTOMATED MESSAGE INFORMED CM THAT THE NUMBER WAS RESTRICTED OR CURRENTLY UNAVAILABLE. CM WAITING PT AND FAMILY TO PROVIDE NURSING FACILITY CHOICES FOR WEB MARKETING MANAGER CARE. Sandor Carrasquillo, CASE MANAGEMENT Appended by Sandor Carrasquillo on 05/28/2019 12:07 CDT: CM SPOKE TO PT IN ROOM, NOTIFIED PT THAT CM TRIED AND COULD NOT REACH DAUGHTER HOUSTON VIA PHONE. PT REPORTS SHE SPOKE TO HOUSTON WHO TOLD HER THAT [facility] WILL NOT TAKE HER DUE TO WEIGHT; PT'S DAUGHTER TOLD PT THAT [facility] PROBABLY WILL NOT TAKE HER. PT REPORTS THERE IS ONE IN [place] THAT MIGHT CONSIDER HER. CM OFFERED CHOICE FORM FOR SIGNATURE SO THAT CM COULD SEND REFERRALS AND BEGIN CALLING TO FIND PLACEMENT. PT REFUSED AND STATES SHE HAS A DAUGHTER, CHEPE, WHO IS A REGISTERED NURSE, THAT MAY BE COMING TO TAKE CARE OF PT AT HOME. PT'S DAUGHTER HOUSTON IS CALLING DAUGHTER CHEPE TO DISCUSS THE OPTION. PT STATES SHE WILL LET CM KNOW THE OUTCOME AND IF SHE WANTS CM TO EXPLORE ASSISTED CARE FOR HER. CM WAITING PT AND FAMILY TO PROVIDE NURSING FACILITY CHOICES AND FOR PT TO SIGN CONSENT FOR ASSISTED PLACEMENT. PT IS NOW HOPEFUL THAT HER DAUGHTER WHO IS A REGISTERED NURSE WILL COME AND STAY WITH PT AND TAKE CARE OF HER AT HOME. SANDOR CARRASQUILLO, CASE MANAGEMENT Appended by Sandor Carrasquillo on 05/28/2019 14:27 CDT: CM RECEIVED MESSAGE THAT PT WANTS TO SEE CM. CM MET WITH PT IN ROOM WHO INFORMED CM THAT SHE HIS NOT GOING TO A ASSISTED, THAT HER DAUGHTER, CHEPE, WHO IS A NURSE, WILL BE HERE NEXT FRIDAY TO TAKE HER HOME AND WILL TAKE CARE OF PT AT HOME. PT ASKED FOR [facility]. CM DISCUSSED POSSIBLE NEED OF DEBORAH LIFT AND ASKED ABOUT ADDITIONAL EQUIPMENT. PT THINKS BY NEXT WEEK, SHE WILL BE ABLE TO TRANSFER WITHOUT AIDE OF LIFT DEVICE. CM NOTIFIED DR. FREEDMAN WHO INFORMED CM THAT HE WILL ORDER BLOOD GAS ON FRIDAY TO DETERMINE RESPIRATORY DISCHARGE NEEDS AT THAT TIME. PT HAS SIGNED RIGHT OF CHOICE FOR [facility] ALREADY. PT REPORTS HER DAUGHTER, WHO IS A REGISTERED NURSE, WILL BE HERE FRIDAY OF NEXT WEEK TO TAKE CARE OF PT AT HOME. PT PLANS TO DISCHARGE HOME WITH FAMILY AND [facility]. CM TO FOLLOW AND ASSIST NEEDED. SANDOR CARRASQUILLO CASE MANAGEMENT DCP- Discharge Planning Updated by [id number]: Sandor Carrasquillo on 05/28/19 7:[address] Patient Name: TROY HAYWOOD Encounter No: [id number] : 1955 Primary Insurance: MEDICAID [place] Anticipated DC Date: Planned Disposition: Inpatient Rehab External Planned Provider: [facility] INPATIENT REH[facility] DCP follow-up note: CM FAXED REFERRAL UPDATE TO [facility] AT [phone]. CM WAITING ADMISSION DETERMINATION FROM [facility] INPATIENT RE[facility] IN [place]. ROSANNA Monroe DCP- Discharge Planning Updated by [id number]: Sandor Carrasquillo on 05/27/19 2:[address] Patient Name: TROY HAYWOOD Encounter No: [id number] : 1955 Primary Insurance: [place] Anticipated DC Date: Planned Disposition: Inpatient Rehab External Planned Provider: [facility] INPATIENT REH[facility] DCP follow-up note: CM FAXED REFERRAL UPDATE TO [facility] AT [phone]. CM WAITING ADMISSION DETERMINATION FROM [facility] INPATIENT [facility] IN [place]. Sandor Carrasquillo, CASE MANAGEMENT Appended by Sandor Carrasquillo on 05/27/2019 14:41 CDT: CM CALLED [facility], , LEFT MESSAGE ASKING FOR UPDATE ON REFERRAL AND TO KNOW IF THEY ARE STILL CONSIDERING PT FOR REHAB. CM WAITING ADMISSION DETERMINATION FROM [facility] INPATIENT [facility] IN [place]. Sandor Carrasquillo CASE MANAGEMENT DCP- Discharge Planning Updated by [id number]: Jesica Cartagena on 05/26/19 4:[address] Patient requested Trapeze bar to allow her to sit up in hospital bed. CM spoke Dr. Lawson and obtained approval for Trapeze bar. CM notified Radha in materials management of request for Trapeze bar. CM completed and gave Radha the order form for the Trapeze bar. Trapeze bar will be delivered. CM notified patient's CM, Christiano Carrasquillo, on status of Trapeze bar. DCP- Discharge Planning Updated by [id number]: Sandor Carrasquillo on 05/26/19 3:[address] Patient Name: TROY HAYWOOD Encounter No: [id number] : 1955 Primary Insurance: [place]ID [place] Anticipated DC Date: Planned Disposition: Inpatient Rehab External Planned Provider: [facility] DCP follow-up note: CM SPOKE TO PT'S DAUGHTER VIA PHONE, HOUSTON SALGADO, . CM OBTAINED PERMISSION FROM PT TO DISCUSS CARE, TREATMENT AND DISCHARGE PLANNING WITH HOUSTON. HOUSTON INFORMED CM THAT PT WAS IN REHAB AT [facility] LAST YEAR AND THEY WANT REFERRED TO [facility] AGAIN. CM DISCUSSED PT'S VERY LOW LEVEL OF PHYSICAL CONDITIONING. PT'S DAUGHTER FEELS THAT PT CAN PARTICIPATE WITH THERAPY WITH GOAL TO RETURN HOME PREVIOUS WITH ABILITY TO TRANSFER TO ELECTRIC SCOOTER AND HOME HEALTH FOR CONTINUED HOME SERVICES. HOUSTON VERIFIED THAT PT HAS NO ADULTS ABLE TO LIVE WITH AND ASSIST PT AT HOME AT THIS TIME. HOUSTON ASKED ABOUT [facility] REHAB SERVICES THAT MAY TAKE PT AT NO COSTS DUE TO INCOME. CM INFORMED HOUSTON THAT CM WAS NOT FAMILIAR WITH ANY OF THESE PROGRAMS. HOUSTON WOULD LIKE TO HAVE PT EVALUATED FOR REHAB AT [facility] PRIOR TO ANY CONSIDERATION OF ASSISTED PLACEMENT PT WILL NOT GET THERAPY THERE. CM SPOKE TO PT WHO IS IN AGREEMENT WITH PLAN. CM CALLED [facility], , NOTIFIED OF REHAB REQUEST; PT HAS ONLY 24 ACUTE DAYS THAT STARTED IN JANUARY, IT DEPENDS ON HOW MANY HAVE BEEN ALREADY USED, PT'S CONDITION AND NEEDS THAT WOULD HAVE TO BE MET IN THE REMAINING DAYS THAT PT HAS TO USE FOR REHAB . CM FAXED REFERRALINFORMATION TO [facility] WITH CURRENT MAR AT [phone]. CM WAITING ADMISSION DETERMINATION FROM [facility] INPATIENT RE[facility] IN [place]. Sandor Carrasquillo, CASE MANAGEMENT Appended by Sandor Carrasquillo on 05/26/2019 15:24 CDT: CM MET WITH PT, GRANDDAUGHTER, DAUGHTER HOUSTON VIA PHONE WITH CM POURER BULL LADLE, UNIT NURSE CHEMICAL ENGRAVER, REPIRATORY THERAPIST AND POURER BULL LADLE OF THERAPY SERVICES REGARDING DISCHARGE PLANNING. CONCERNS OF PT'S PLAN TO GO HOME IN CURRENT CONDITION DISCUSSED. PT AND DAUGHTER HAVE ALREADY ASKED FOR REFERRAL TO [facility] REHAB, CM HAS SENT IT AND WAITING DETERMINATION. PLAN "B" WAS AGREED TO BE NURSING FACILITY IF NOT ACCEPTED TO [facility] AND THAT CM WOULD ATTEMPT TO FIND ONE THAT MAY DONATE REHAB SERVICES. PT'S DAUGHTER IS RESEARCHING [employer] FROM [facility] FOR REHAB SERVICES. CM WAITING ADMISSION DETERMINATION FROM [facility] INPAT[facility] IN [place]. Sandor Carrasquillo, CASE MANAGEMENT DCP- Discharge Planning Updated by [id number]: Sandor Carrasquillo on 05/25/19 2:[address] Patient Name: TROY HAYWOOD Encounter No: [id number] : 1955 Primary Insurance: MEDICAID [employer] Date: Planned Disposition: Home HEALTH External Planned Provider: [facility]ISITING [facility] DC follow-up note: CM MET WITH PT IN ROOM TO DISCUSS DISCHARGE NEEDS AND PLANNING. CM DISCUSSED AVAILABILITY OF HOME HEALTH, REHAB SERVICES AND MEDICAL EQUIPMENT. PT REFUSES LONG-TERM FACILITY PLACEMENT. PT STATES PLAN TO RETURN HOME. 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 PT WAS ABLE TO AMBULATE SMALL DISTANCES AND TRANSFER SELF FROM BED TO ELECTRIC WHEELCHAIR AT HOME. PT THINKS SHE IS GOING TO BE ABLE TO TRANSFER SELF TO GO BACK HOME. PT WANTS HOME HEALTH RESUMED TO GO HOME. CM EXPRESSED CONCERN OF PT'S CURRENT LEVEL OF FUNCTIONING AND RETURNING HOME. PT DENIES HAVING FRIENDS OR FAMILY TO ASSIST WITH HER CARE AT HOME BUT IS NOT GOING TO A ASSISTED. PT THINKS SHE WILL NEED AN AMBULANCE FOR TRANSPORT HOME HER ELECTRIC WHEELCHAIR IS THERE. CM EXPLAINED TO PT THAT SHE WILL NEED TO DEMONSTRATE WITH THERAPY THE ABILITY TO TRANSFER AND SIT IN CHAIR FOR DISCHARGE. PT STATED UNDRESTANDING. CHOICE FOR [facility]URSES HOME HEALTH SIGNED. 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 PT REFUSED NURSING FACILITY PLACEMENT. PT WILL NEED TO DEMONSTRATE ABILITY TO TRANSFER AND SIT IN CHAIR FOR DISCHARGE SHE HAS ELECTRIC WHEELCHAIR AT HOME. CM TO ARRANGE HOME HEALTH RESUMPTION WITH [facility] IN [place] FOR DISCHARGE HOME. CM TO CONTINUE TO FOLLOW AND ASSIST NEEDED. Sandor Carrasquillo CASE MANAGEMENT DCP- Discharge Planning Updated by [id number]: Aleisha Monroe on 05/19/19 7:[address] Patient Name: TROY HAYWOOD Admission Status: ER Accout number: [id number] Admission Date: 05-14-2019 : 1955 Admission Diagnosis: Attending: FABIO PINEDA Current LOS: 5 Anticipated DC Date: Planned Disposition: Home or Self Care Primary Insurance: MEDICAID [place] Discharge Planning Comments: CM met with patient and daughter to complete initial dc planning assessment. Patient recently extubated earlier today. CM educated patient on the CM role and verbal consent given by patient to complete assessment. Patient lives at home with her two young grand-daughters where she is independent with her care. At discharge patient plans to return home and feels this is a safe discharge. CM discussed availability of home health, rehab services, and medical equipment. Patient has Home 02 and HH with unknown providers. CM will f/u with patient @ later date to see if she is able to give providers. Patient denied known discharge needs at this time. CM will continue to follow and will assist as needed with dc plans/needs. Aluminum Siding Installer: Aleisha Monroe DCPIA - Discharge Planning Initial Assessment Updated by NAYLA: Sandor Carrasquillo on 05/28/19 9:36 am * How many steps to enter\\exit or inside your home? * PCP uncertain ? * Pharmacy [facility] * Preadmission Environment Home with Family * ADLs Independent * Other Equipment HOME 02, WALKER, SCOOTER, BSC, SC * List name and contact numbers for known caregivers / representatives who currently or will assist patient after discharge: CHEPE SUN - DAUGHTER- [phone] HOUSTON NAOMI, DTR - [phone] * Verbal permission to speak to the caregivers and representatives has been obtained from the patient. Yes * Community resources currently utilized Home Health * Please name any agencies selected above. [facility] * Additional services required to return to the preadmission environment? No * Can the patient safely return to the preadmission environment? Yes * Has this patient been hospitalized within the prior 30 days at any hospital? No Coverage Notice Reviewer: [id number] Josef Carrasquillo Notice Issued Date-Time: 05/25/2019 14:05 Notice Type: Patient Choice Letter Notice Delivered To: Patient Relationship to Patient: Rn Examiner Name: Delivery Method: HAND - Hand Delivered Marry Days: Prior Verbal Notification: Recipient Understood Notice: Yes Recipient Signature: Yes Med Rec Note Co-signed by Attending: Coverage Notice Comment: [facility]- VISITING NURSES [facility] Reviewer: [id number] Josef Carrasquillo Notice Issued Date-Time: 05/31/2019 14:50 Notice Type: Patient Choice Letter Notice Delivered To: Patient Relationship to Patient: Rn Examiner Name: Delivery Method: HAND - Hand Delivered Marry Days: Prior Verbal Notification: Recipient Understood Notice: Yes Recipient Signature: Yes Med Rec Note Co-signed by Attending: Coverage Notice Comment: [facility] Last DP export: 05/31/19 3:53 p Patient Name: TROY HAYWOOD Page [id number] at 1710 All edits/amendments must be made on the electronic document DICTATION DATE: 06/01/191708 ASSEMBLY AND PACKING SUPERVISOR: MISHEL 06/01/191708 RPT#: [id number] DC DATE: STATUS: ADM IN [facility] [address] [place] [address] END OF REPORT
[2019-06-01 20:00] VITALS: BP 119/55
--- NOTE | 2019-06-01 20:17 | NUR ---
REPORT RECIEVED AND ROUNDING COMPLETE. PATIENT LAYING IN BED IN SUPINE POSITION WITH HOB ELEVATED. PATIENT IS A&O X4. PATIENT HAS A BALLARD CATH. PATIENT RECIEVING 02 VIA HF NC AT 5L. PATIENT STATES SHE HAS NO NEEDS AT THIS AND JUST WANTS TO REST. CALL LIGHT WITHIN REACH AND BED IN LOWEST LOCKED POSITION. PATIENT SHOWING NO S/S OF DISTRESS AT THIS TIME.
[2019-06-02] VITALS: BP 120/63
--- NOTE | 2019-06-02 01:23 | NUR ---
I have reviewed this patient and I concur with the Shift Assessment completed by the Licensed Practical Nurse today this shift.
[2019-06-02 04:00] VITALS: BP 130/60
--- NOTE | 2019-06-02 07:42 | NUR ---
PT RESTING. RR EVEN AND UNLABORED. DENIES NEEDS OR PAIN AT THIS TIME. AXO. BED IN LOWEST POSITION. CALL LIGHT WITHIN REACH. WILL CONTINUE TO MONITOR.
--- NOTE | 2019-06-02 08:34 | NUR ---
OT NOTE: PT COMPLETED BUE AROM EXS. PT COMPLETED HAND/FACE HYGIENE WITH SET UP. PT COMPLETED BED POSITIONING WITH NATALIE Cornejo THANK YOU, BLADIMIR MANCERA
--- NOTE | 2019-06-02 09:20 | MORECARE ---
CASE MANAGEMENT DISCHARGE SUMMARY PATIENT: TROY HAYWOOD UNIT: [id number] ADM DATE: 05/14/19 AGE: 64 : 57 SEX: F ROOM/BED: D.9370 AUTHOR: DAYDAY,DOC PHYSICIAN: REFERRING PHYSICIAN: FABIO PINEDA MD DATE OF SERVICE: 06/02/19 Discharge Plan Patient Name: TROY HAYWOOD Facility: [facility]:[place] : 1955 Planned Disposition: Nursing Facility YUN Cert Anticipated Discharge Date: 06/02/19 Discharge Date: Expected LOS: 19 Initial Reviewer: [id number] Initial Review Date: 05/19/2019 Generated: 06/02/19 10:20 am Comments DCP- Discharge Planning Updated by [id number]: Sandor Carrasquillo on 06/02/19 8:[address] Patient Name: TROY HAYWOOD Encounter No: [id number] : 1955 Primary Insurance: [place]ICAID [place] Anticipated DC Date: 06-02-2019 Planned Disposition: Nursing Facility YUN Cert External Planned Provider: [facility] MEDICAID BED DCP follow-up note: CM FAXED REFERRAL UPDATE TO [facility] AT [phone]. CM WAITING ADMISSION DETERMINATION FROM [facility] AND [facility] FOR INTERMEDIATE CARE. Sandor Carrasquillo, CASE MANAGEMENT DCP- Discharge Planning Updated by [id number]: Sandor Carrasquillo on 06/01/19 4:[address] Patient Name: TROY HAYWOOD Encounter No: [id number] : 1955 Primary Insurance: [place] Anticipated DC Date: 06-02-2019 Planned Disposition: Nursing Facility YUN Cert External Planned Provider: [facility] INTERMEDIATE CARE MEDICAID BED DCP follow-up note: CM MET WITH PT AND DAUGHTER HOUSTON, WHO HAS MADE IT FROM [place]. UPDATE PROVIDED. CM CALLED [facility] DALE INFORMED CM THAT REFERRAL FROM AND [facility] WAS RECEIVED, STAFF IN MEETING TODAY AND THEY WILL FINISH ADMISSION REVIEW TOMORROW, 06-02-19. CM NOTIFIED PT AND DAUGHTER IN ROOM. CM WAITING ADMISSION DETERMINATION FROM [facility] AND [facility] FOR INTERMEDIATE CARE. Sandor Carrasquillo CASE MANAGEMENT DCP- Discharge Planning Updated by [id number]: Sandor Carrasquillo on 05/31/19 3:[address] Patient Name: TROY HAYWOOD Encounter No: [id number] : 1955 Primary Insurance: [place] Anticipated DC Date: 06-01-2019 Planned Disposition: Nursing Facility YUN Cert External Planned Provider: [facility], [facility] MEDICAID BED DCP follow-up note: AFTER SEVERAL VISITS WITH PT IN ROOM, PHONE CALLS WITH DAUGHTERS, [facility] AND [facility], PT DECIDED TO CONSENT TO 30 DAYS OF INTERMEDIATE CARE AT [facility] AFTER PT'S DAUGTHERS, WITH AIDE [facility] [place] WHO WILL CONSIDER PT FOR CARE. PT SIGNED CHOICE. CM FAXED REFERRAL INFORMATION TO [place] AT [phone]. CM WAITING ADMISSION DETERMINATION FROM [facility] FOR [facility]. Sandor Carrasquillo CASE MANAGEMENT DCP- Discharge Planning Updated by [id number]: Sandor Carrasquillo on 05/28/19 3:[address] Patient Name: TROY HAYWOOD Encounter No: [id number] : 1955 Primary Insurance: [place] Anticipated DC Date: 06-02-2019 Planned Disposition: Home with Home Health External Planned Provider: [facility] DCP follow-up note: CM RECEIVED CALL FROM PT'S DAUGHTER, CHEPE, WHO VERIFIED THAT SHE WILL COME NEXT WEEK TO STAY WITH PT FOR TWO OR THREE WEEKS TO CARE FOR PT AT HOME. CHEPE WILL DISCUSS WITH HER MOTHER THAT SHE WILL HAVE TO BE ABLE TO STAND AND TRANSFER FOR CHEPE TO CARE FOR HER. CM REVIEWED THERAPY NOTES TO PRESENT. 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 PT HAS BEDSIDE COMMODE AND WHEELCHAIR AT HOME. CHEPE REPORTS NEED OF [facility] RESUMPTION. CHEPE WILL DISCUSS WITH PT AND TRY TO MOTIVATE HER TO MEET THERAPY GOALS PRIOR TO ARRIVAL ON NEXT FRIDAY OR FRIDAY. PT'S DAUGHTER PLANS TO TAKE PT HOME NEXT FRIDAY OR FRIDAY, THEY WILL NEED [facility], DENIES FURTHER NEEDS. CM TO FOLLOW AND ASSIST NEEDED. Sandor Carrasquillo, CASE MANAGEMENT DCP- Discharge Planning Updated by [id number]: Sandor Carrasquillo on 05/28/19 2:[address] Patient Name: TROY HAYWOOD Encounter No: [id number] : 1955 Primary Insurance: [place] Anticipated DC Date: Planned Disposition: Nursing Facility YUN Cert External Planned Provider: TO BE DETERMINED DCP follow-up note: CM SPOKE TO [facility], SHE INFORMED CM THAT UPDATES HAVE BEEN RECEIVED, PT IS NOT MAKING ENOUGH PROGRESS WITH THERAPY THAT THEY DO NOT BELIEVE THAT PT WILL BE ABLE TO ACHIEVE THERAPY GOALS IN THE REMAINING 10 DAYS OF ACUTE DAYS THAT PT HAS REMAINING. CM NOTIFIED PT AND PROVIDED PT WITH NURSING FACILITY LISTING OF ALL AVAILABLE FACILITIES WITHIN [address] [place]. PT WILL SPEAK TO HER DAUGHTER AND NOTIFY CM OF HER CHOICES. CM CALLED [facility], , TWICE; AUTOMATED MESSAGE INFORMED CM THAT THE NUMBER WAS RESTRICTED OR CURRENTLY UNAVAILABLE. CM WAITING PT AND FAMILY TO PROVIDE NURSING FACILITY CHOICES FOR [facility]. Sandor Carrasquillo, CASE MANAGEMENT Appended by Sandor Carrasquillo on 05/28/2019 12:07 CDT: CM SPOKE TO PT IN ROOM, NOTIFIED PT THAT CM TRIED AND COULD NOT REACH DAUGHTER HOUSTON VIA PHONE. PT REPORTS SHE SPOKE TO [facility] WHO TOLD HER THAT [facility] WILL NOT TAKE HER DUE TO WEIGHT; PT'S DAUGHTER TOLD PT THAT [facility]OB[facility] WILL NOT TAKE HER. PT REPORTS THERE IS ONE IN [place] THAT MIGHT CONSIDER HER. CM OFFERED CHOICE FORM FOR SIGNATURE SO THAT CM COULD SEND REFERRALS AND BEGIN CALLING TO FIND PLACEMENT. PT REFUSED AND STATES SHE HAS A DAUGHTER, CHEPE, WHO IS A REGISTERED NURSE, THAT MAY BE COMING TO TAKE CARE OF PT AT HOME. PT'S DAUGHTER HOUSTON IS CALLING DAUGHTER CHEPE TO DISCUSS THE OPTION. PT STATES SHE WILL LET CM KNOW THE OUTCOME AND IF SHE WANTS CM TO EXPLORE SENIOR LIVING CARE FOR HER. CM WAITING PT AND FAMILY TO PROVIDE NURSING FACILITY CHOICES AND FOR PT TO SIGN CONSENT FOR SENIOR LIVING PLACEMENT. PT IS NOW HOPEFUL THAT HER DAUGHTER WHO IS A REGISTERED NURSE WILL COME AND STAY WITH PT AND TAKE CARE OF HER AT HOME. SANDOR CARRASQUILLO, CASE MANAGEMENT Appended by Sandor Carrasquillo on 05/28/2019 14:27 CDT: CM RECEIVED MESSAGE THAT PT WANTS TO SEE CM. CM MET WITH PT IN ROOM WHO INFORMED CM THAT SHE HIS NOT GOING TO A SENIOR LIVING, THAT HER DAUGHTER, CHEPE, WHO IS A NURSE, WILL BE HERE NEXT FRIDAY TO TAKE HER HOME AND WILL TAKE CARE OF PT AT HOME. PT ASKED FOR [facility]. CM DISCUSSED POSSIBLE NEED OF DEBORAH LIFT AND ASKED ABOUT ADDITIONAL EQUIPMENT. PT THINKS BY NEXT WEEK, SHE WILL BE ABLE TO TRANSFER WITHOUT AIDE OF LIFT DEVICE. CM NOTIFIED DR. FREEDMAN WHO INFORMED CM THAT HE WILL ORDER BLOOD GAS ON FRIDAY TO DETERMINE RESPIRATORY DISCHARGE NEEDS AT THAT TIME. PT HAS SIGNED RIGHT OF CHOICE FOR [facility] ALREADY. PT REPORTS HER DAUGHTER, WHO IS A REGISTERED NURSE, WILL BE HERE FRIDAY OF NEXT WEEK TO TAKE CARE OF PT AT HOME. PT PLANS TO DISCHARGE HOME WITH FAMILY AND [facility]. CM TO FOLLOW AND ASSIST NEEDED. ROSANNA MONTAÑO DCP- Discharge Planning Updated by [id number]: Sandor Carrasquillo on 05/28/19 7:[address] Patient Name: TROY HAYWOOD Encounter No: [id number] : 1955 Primary Insurance: [place] Anticipated DC Date: Planned Disposition: Inpatient Rehab External Planned Provider: [facility] DCP follow-up note: CM FAXED REFERRAL UPDATE TO [facility] AT [phone]. CM WAITING ADMISSION DETERMINATION FROM [facility] IN [place]. ROSANNA Montaño DCP- Discharge Planning Updated by [id number]: Sandor Carrasquillo on 05/27/19 2:[address] Patient Name: TROY HAYWOOD Encounter No: [id number] : 1955 Primary Insurance: [place]ID [place] Anticipated DC Date: Planned Disposition: Inpatient Rehab External Planned Provider: [facility] DCP follow-up note: CM FAXED REFERRAL UPDATE TO [facility] AT [phone]. CM WAITING ADMISSION DETERMINATION FROM [facility] IN [place]. Sandor Carrasquillo CASE MANAGEMENT Appended by Sandor Carrasquillo on 05/27/2019 14:41 CDT: CM CALLED [facility], , LEFT MESSAGE ASKING FOR UPDATE ON REFERRAL AND TO KNOW IF THEY ARE STILL CONSIDERING PT FOR REHAB. CM WAITING ADMISSION DETERMINATION FROM [facility] IN [place]. Sandor Carrasquillo, CASE MANAGEMENT DCP- Discharge Planning Updated by [id number]: Jesica Cartagena on 05/26/19 4:[address] Patient requested Trapeze bar to allow her to sit up in hospital bed. CM spoke Dr. Lawson and obtained approval for Trapeze bar. CM notified Radha in materials management of request for Trapeze bar. CM completed and gave Radha the order form for the Trapeze bar. Trapeze bar will be delivered. CM notified patient's CM, Christiano Carrasquillo, on status of Trapeze bar. DCP- Discharge Planning Updated by [id number]: Sandor Carrasquillo on 05/26/19 3:[address] Patient Name: TROY HAYWOOD Encounter No: [id number] : 1955 Primary Insurance: MEDICAID [facility] Date: Planned Disposition: Inpatient Rehab External Planned Provider: [facility] DCP follow-up note: CHRISTOPHER SPOKE TO PT'S DAUGHTER VIA PHONE, HOUSTON NAOMI, . CHRISTOPHER OBTAINED PERMISSION FROM PT TO DISCUSS CARE, TREATMENT AND DISCHARGE PLANNING WITH HOUSTON. HOUSTON INFORMED CM THAT PT WAS IN REHAB AT [facility] LAST YEAR AND THEY WANT REFERRED TO [facility] AGAIN. CHRISTOPHER DISCUSSED PT'S VERY LOW LEVEL OF PHYSICAL CONDITIONING. PT'S DAUGHTER FEELS THAT PT CAN PARTICIPATE WITH THERAPY WITH GOAL TO RETURN HOME PREVIOUS WITH ABILITY TO TRANSFER TO ELECTRIC SCOOTER AND HOME HEALTH FOR CONTINUED HOME SERVICES. HOUSTON VERIFIED THAT PT HAS NO ADULTS ABLE TO LIVE WITH AND ASSIST PT AT HOME AT THIS TIME. HOUSTON ASKED ABOUT [facility] SERVICES THAT MAY TAKE PT AT NO COSTS DUE TO INCOME. CHRISTOPHER INFORMED HOUSTON THAT CM WAS NOT FAMILIAR WITH ANY OF THESE PROGRAMS. HOU[facility]ON WOULD LIKE TO HAVE PT EVALUATED FOR REHAB AT [facility] PRIOR TO ANY CONSIDERATION OF SENIOR LIVING PLACEMENT PT WILL NOT GET THERAPY THERE. CHRISTOPHER SPOKE TO PT WHO IS IN AGREEMENT WITH PLAN. CM CALLED [facility], , NOTIFIED OF REHAB REQUEST; PT HAS ONLY 24 ACUTE DAYS THAT STARTED IN JANUARY, IT DEPENDS ON HOW MANY HAVE BEEN ALREADY USED, PT'S CONDITION AND NEEDS THAT WOULD HAVE TO BE MET IN THE REMAINING DAYS THAT PT HAS TO USE FOR REHAB . CM FAXED REFERRALINFORMATION TO [facility] WITH CURRENT MAR AT [phone]. CM WAITING ADMISSION DETERMINATION FROM [facility] RE[facility] IN [place]. Sandor Carrasquillo, CASE MANAGEMENT Appended by Sandor Carrasquillo on 05/26/2019 15:24 CDT: CM MET WITH PT, GRANDDAUGHTER, DAUGHTER HOUSTON VIA PHONE WITH CM TEACHER TUTOR, UNIT NURSE ART PSYCHOTHERAPIST, REPIRATORY THERAPIST AND TEACHER TUTOR OF THERAPY SERVICES REGARDING DISCHARGE PLANNING. CONCERNS OF PT'S PLAN TO GO HOME IN CURRENT CONDITION DISCUSSED. PT AND DAUGHTER HAVE ALREADY AS[facility]ED [facility] TO [facility], CM HAS SENT IT AND WAITING DETERMINATION. PLAN "B" WAS AGREED TO BE NURSING FACILITY IF NOT ACCEPTED TO [facility] AND THAT CM WOULD ATTEMPT TO FIND ONE THAT MAY DONATE REHAB SERVICES. PT'S DAUGHTER IS RESEARCHING Z[facility]KE [facility]. CM WAITING ADMISSION DETERMINATION FROM [facility] IN [place]. Sandor Carrasquillo, CASE MANAGEMENT DCP- Discharge Planning Updated by [id number]: Sandor Carrasquillo on 05/25/19 2:[address] Patient Name: RTOY HAYWOOD Encounter No: [id number] : 1955 Primary Insurance: MEDICAID [facility] Date: Planned Disposition: Home HEALTH External Planned Provider: [facility] [address], VISITING NURSES [facility] DC follow-up note: CM MET WITH PT IN ROOM TO DISCUSS DISCHARGE NEEDS AND PLANNING. CM DISCUSSED AVAILABILITY OF HOME HEALTH, REHAB SERVICES AND MEDICAL EQUIPMENT. PT REFUSES SNF FACILITY PLACEMENT. PT STATES PLAN TO RETURN HOME. 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 PT WAS ABLE TO AMBULATE SMALL DISTANCES AND TRANSFER SELF FROM BED TO ELECTRIC WHEELCHAIR AT HOME. PT THINKS SHE IS GOING TO BE ABLE TO TRANSFER SELF TO GO BACK HOME. PT WANTS HOME HEALTH RESUMED TO GO HOME. CM EXPRESSED CONCERN OF PT'S CURRENT LEVEL OF FUNCTIONING AND RETURNING HOME. PT DENIES HAVING FRIENDS OR FAMILY TO ASSIST WITH HER CARE AT HOME BUT IS NOT GOING TO A SENIOR LIVING. PT THINKS SHE WILL NEED AN AMBULANCE FOR TRANSPORT HOME HER ELECTRIC WHEELCHAIR IS THERE. CM EXPLAINED TO PT THAT SHE WILL NEED TO DEMONSTRATE WITH THERAPY THE ABILITY TO TRANSFER AND SIT IN CHAIR FOR DISCHARGE. PT STATED UNDRESTANDING. CHOICE FOR [facility] [address] VISITING NURSES HOME HEALTH SIGNED. 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 PT REFUSED NURSING FACILITY PLACEMENT. PT WILL NEED TO DEMONSTRATE ABILITY TO TRANSFER AND SIT IN CHAIR FOR DISCHARGE SHE HAS ELECTRIC WHEELCHAIR AT HOME. CM TO ARRANGE HOME HEALTH RESUMPTION WITH [facility] [address] [facility]ES [facility] IN [place] FOR DISCHARGE HOME. CM TO CONTINUE TO FOLLOW AND ASSIST NEEDED. Sandor Carrasquillo, CASE MANAGEMENT DCP- Discharge Planning Updated by [id number]: Aleisha Monroe on 05/19/19 7:[address] Patient Name: TROY HAYWOOD Admission Status: ER Accout number: [id number] Admission Date: 05-14-2019 : 1955 Admission Diagnosis: Attending: FABIO PINEDA Current LOS: 5 Anticipated DC Date: Planned Disposition: Home or Self Care Primary Insurance: MEDICAID [place] Discharge Planning Comments: CM met with patient and daughter to complete initial dc planning assessment. Patient recently extubated earlier today. CM educated patient on the CM role and verbal consent given by patient to complete assessment. Patient lives at home with her two young grand-daughters where she is independent with her care. At discharge patient plans to return home and feels this is a safe discharge. CM discussed availability of home health, rehab services, and medical equipment. Patient has Home 02 and HH with unknown providers. CM will f/u with patient @ later date to see if she is able to give providers. Patient denied known discharge needs at this time. CM will continue to follow and will assist as needed with dc plans/needs. Audit Partner: Aleisha Monroe DCPIA - Discharge Planning Initial Assessment Updated by [email or web address]: Sandor Carrasquillo on 05/28/19 9:36 am * How many steps to enter\\exit or inside your home? * PCP uncertain ? * Pharmacy [place] * Preadmission Environment Home with Family * ADLs Independent * Other Equipment HOME 02, WALKER, SCOOTER, BSC, SC * List name and contact numbers for known caregivers / representatives who currently or will assist patient after discharge: CHEPE SUN - DAUGHTER- [phone] HOUSTON SALGADO, DTR - [phone] * Verbal permission to speak to the caregivers and representatives has been obtained from the patient. Yes * Community resources currently utilized Home Health * Please name any agencies selected above. [facility] * Additional services required to return to the preadmission environment? No * Can the patient safely return to the preadmission environment? Yes * Has this patient been hospitalized within the prior 30 days at any hospital? No Coverage Notice Reviewer: [id number] Josef Carrasquillo Notice Issued Date-Time: 05/25/2019 14:05 Notice Type: Patient Choice Letter Notice Delivered To: Patient Relationship to Patient: Audio/Visual Manager Name: Delivery Method: HAND - Hand Delivered Marry Days: Prior Verbal Notification: Recipient Understood Notice: Yes Recipient Signature: Yes Med Rec Note Co-signed by Attending: Coverage Notice Comment: [facility]- VISITING NURSES [facility]) Reviewer: [email or web address] Josef Carrasquillo Notice Issued Date-Time: 05/31/2019 14:50 Notice Type: Patient Choice Letter Notice Delivered To: Patient Relationship to Patient: Audio/Visual Manager Name: Delivery Method: HAND - Hand Delivered Marry Days: Prior Verbal Notification: Recipient Understood Notice: Yes Recipient Signature: Yes Med Rec Note Co-signed by Attending: Coverage Notice Comment: [facility] Last DP export: 06/01/19 4:10 p Patient Name: TROY HAYWOOD Page [id number] at 0920 All edits/amendments must be made on the electronic document DICTATION DATE: 06/02/19919 CORK INSULATION SETTER: MISHEL 06/02/19919 RPT#: [id number] DC DATE: STATUS: ADM IN [facility] [address] [place] [address] END OF REPORT
[2019-06-02 09:43] VITALS: BP 122/51
[2019-06-02 13:43] VITALS: BP 128/45
--- NOTE | 2019-06-02 16:14 | NUR ---
OT NOTE: BED MOB WITH MAX ASSIST; EOB SITTING WITH SPV AND GOOD BALANCE FOR STATIC SITTING. SIT TO STAND WITH MAX ASSIST X 2..ABLE TO STAND FOR APPROX 20-30 SECS X 3 TRIALS. REQUIRED APPROX 3-4 MIN TO RECOUP INBETWEEN STANDS. TOTAL ASSIST FOR WASHING BACK AND LES AND PERINEAL AREA. SET UP FOR WASHING FACE, HANDS, AND UES. BACK TO BED WITH MOD ASSIST ; REPOSITIONED WITH MAX ASSIST X 2; EDUCATED PT AND DTR ON EXS WITH USE OF TRAPEZE BAR. PT ABLE TO PERFORM WITHOUT ASSIST..ABLE TO PERFORM ONLY ABOUT 3 REPS AT A TIME. SAÚL ESCAMILLA, OTR/L
--- NOTE | 2019-06-02 16:57 | MORECARE ---
CASE MANAGEMENT DISCHARGE SUMMARY PATIENT: TROY HAYWOOD UNIT: [id number] ADM DATE: 05/14/19 AGE: 64 : 57 SEX: F ROOM/BED: D.2140 AUTHOR: DAYDAY,DOC PHYSICIAN: REFERRING PHYSICIAN: FABIO PINEDA MD DATE OF SERVICE: 06/02/19 Discharge Plan Patient Name: TROY HAYWOOD Facility: [facility]:[place] : 1955 Planned Disposition: Nursing Facility [facility] Cert Anticipated Discharge Date: 06/02/19 Discharge Date: Expected LOS: 19 Initial Reviewer: [id number] Initial Review Date: 05/19/2019 Generated: 06/02/19 5:57 pm Comments DCP- Discharge Planning Updated by [id number]: Sandor Carrasquillo on 06/02/19 3:[address] Patient Name: TROY HAYWOOD Encounter No: [id number] : 1955 Primary Insurance: [place] Anticipated DC Date: 06-02-2019 Planned Disposition: Nursing Facility [facility] Cert External Planned Provider: [facility], [facility] MEDICAID BED DCP follow-up note: CM FAXED REFERRAL UPDATE TO [facility] AT [phone]. CM WAITING ADMISSION DETERMINATION FROM [facility] FOR DISH CLOTH INSPECTOR CARE. aSndor Carrasquillo CASE MANAGEMENT Appended by Sandor Carrasquillo on 06/02/2019 16:50 SILVER SOLDERER: CM RECEIVED CALL FROM LUIS OF [facility], , THEY RECEIVED THE UPDATE BY FAX AND WILL CONTACT FAMILY REGARDING FINANCIALS. LUIS REPORTS THEY ARE STILL WAITING ON NURSING TO ACCEPT FOR [facility] AND WILL ALSO NEED FINANCIAL CLEARANCE TO ENTER THE FACILITY. CM WAITING ADMISSION DETERMINATION FROM [facility] FOR DISH CLOTH INSPECTOR CARE. [facility] CONTACTING FAMILY TO ASSIST WITH FINANCIAL INFORMATION FOR [facility] MEDICAID APPLICATION. ROSANNA Montaño DCP- Discharge Planning Updated by [email or web address]: Sandor Carrasquillo on 06/01/19 4:[address] Patient Name: TROY HAYWOOD Encounter No: [id number] : 1955 Primary Insurance: [place] Anticipated DC Date: 06-02-2019 Planned Disposition: Nursing Facility [facility] Cert External Planned Provider: [facility] TERM CARE MEDICAID BED DCP follow-up note: CM MET WITH PT AND DAUGHTER HOUSTON, WHO HAS MADE IT FROM [place]. UPDATE PROVIDED. CM CALLED [facility], DALE INFORMED CM THAT REFERRAL FROM AND [facility] WAS RECEIVED, STAFF IN MEETING TODAY AND THEY WILL FINISH ADMISSION REVIEW TOMORROW, 06-02-19. CM NOTIFIED PT AND DAUGHTER IN ROOM. CM WAITING ADMISSION DETERMINATION FROM [facility] FOR [facility]. Sandor Carrasquillo CASE MANAGEMENT DCP- Discharge Planning Updated by [id number]: Sandor Carrasquillo on 05/31/19 3:[address] Patient Name: TROY HAYWOOD Encounter No: [id number] : 1955 Primary Insurance: [place] Anticipated DC Date: 06-01-2019 Planned Disposition: Nursing Facility [facility] Cert External Planned Provider: [facility] MEDICAID BED DCP follow-up note: AFTER SEVERAL VISITS WITH PT IN ROOM, PHONE CALLS WITH DAUGHTERS, [facility] AND [facility], PT DECIDED TO CONSENT TO 30 DAYS OF DISH CLOTH INSPECTOR CARE AT [facility] AFTER PT'S DAUGTHERS, WITH AIDE [facility], LOCATED [facility] WHO WILL CONSIDER PT FOR CARE. PT SIGNED CHOICE. CM FAXED REFERRAL INFORMATION TO [facility] AT [phone]. CM WAITING ADMISSION DETERMINATION FROM [facility] FOR [facility]. Sandor Carrasquillo CASE MANAGEMENT DCP- Discharge Planning Updated by [id number]: Sandor Carrasquillo on 05/28/19 3:[address] Patient Name: TROY HAYWOOD Encounter No: [id number] : 1955 Primary Insurance: [place] Anticipated DC Date: 06-02-2019 Planned Disposition: Home with Home Health External Planned Provider: [facility] DCP follow-up note: CM RECEIVED CALL FROM PT'S DAUGHTER, CHEPE, WHO VERIFIED THAT SHE WILL COME NEXT WEEK TO STAY WITH PT FOR TWO OR THREE WEEKS TO CARE FOR PT AT HOME. CHEPE WILL DISCUSS WITH HER MOTHER THAT SHE WILL HAVE TO BE ABLE TO STAND AND TRANSFER FOR CHEPE TO CARE FOR HER. CM REVIEWED THERAPY NOTES TO PRESENT. 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 PT HAS BEDSIDE COMMODE AND WHEELCHAIR AT HOME. CHEPE REPORTS NEED OF [facility] RESUMPTION. CHEPE WILL DISCUSS WITH PT AND TRY TO MOTIVATE HER TO MEET THERAPY GOALS PRIOR TO ARRIVAL ON NEXT FRIDAY OR FRIDAY. PT'S DAUGHTER PLANS TO TAKE PT HOME NEXT FRIDAY OR FRIDAY, THEY WILL NEED [facility] RES[facility]TION, DENIES FURTHER NEEDS. CM TO FOLLOW AND ASSIST NEEDED. Sandor Carrasquillo, CASE MANAGEMENT DCP- Discharge Planning Updated by [id number]: Sandor Carrasquillo on 05/28/19 2:[address] Patient Name: TROY HAYWOOD Encounter No: [id number] : 1955 Primary Insurance: [place] Anticipated DC Date: Planned Disposition: Nursing Facility [facility] External Planned Provider: TO BE DETERMINED DCP follow-up note: CM SPOKE TO [facility], SHE INFORMED CM THAT UPDATES HAVE BEEN RECEIVED, PT IS NOT MAKING ENOUGH PROGRESS WITH THERAPY THAT THEY DO NOT BELIEVE THAT PT WILL BE ABLE TO ACHIEVE THERAPY GOALS IN THE REMAINING 10 DAYS OF ACUTE DAYS THAT PT HAS REMAINING. CM NOTIFIED PT AND PROVIDED PT WITH NURSING FACILITY LISTING OF ALL AVAILABLE FACILITIES WITHIN [address] [place]. PT WILL SPEAK TO HER DAUGHTER AND NOTIFY CM OF HER CHOICES. CM CALLED [facility] SALGADO, , TWICE; AUTOMATED MESSAGE INFORMED CM THAT THE NUMBER WAS RESTRICTED OR CURRENTLY UNAVAILABLE. CM WAITING PT AND FAMILY TO PROVIDE NURSING FACILITY CHOICES FOR [facility]. Sandor Carrasquillo, CASE MANAGEMENT Appended by Sandor Carrasquillo on 05/28/2019 12:07 CDT: CM SPOKE TO PT IN ROOM, NOTIFIED PT THAT CM TRIED AND COULD NOT REACH DAUGHTER HOUSTON VIA PHONE. PT REPORTS SHE SPOKE TO HOUSTON WHO TOLD HER THAT [facility] WILL NOT TAKE HER DUE TO WEIGHT; PT'S DAUGHTER TOLD PT THAT [facility] PROBAB[facility] WILL NOT TAKE HER. PT REPORTS THERE IS ONE IN [place] THAT MIGHT CONSIDER HER. CM OFFERED CHOICE FORM FOR SIGNATURE SO THAT CM COULD SEND REFERRALS AND BEGIN CALLING TO FIND PLACEMENT. PT REFUSED AND STATES SHE HAS A DAUGHTER, CHEPE, WHO IS A REGISTERED NURSE, THAT MAY BE COMING TO TAKE CARE OF PT AT HOME. PT'S DAUGHTER HOUSTON IS CALLING DAUGHTER CHEPE TO DISCUSS THE OPTION. PT STATES SHE WILL LET CM KNOW THE OUTCOME AND IF SHE WANTS CM TO EXPLORE PENITENTIARY CARE FOR HER. CM WAITING PT AND FAMILY TO PROVIDE NURSING FACILITY CHOICES AND FOR PT TO SIGN CONSENT FOR PENITENTIARY PLACEMENT. PT IS NOW HOPEFUL THAT HER DAUGHTER WHO IS A REGISTERED NURSE WILL COME AND STAY WITH PT AND TAKE CARE OF HER AT HOME. SANDOR CARRASQUILLO, CASE MANAGEMENT Appended by Sandor Carrasquillo on 05/28/2019 14:27 CDT: CM RECEIVED MESSAGE THAT PT WANTS TO SEE CM. CM MET WITH PT IN ROOM WHO INFORMED CM THAT SHE HIS NOT GOING TO A PENITENTIARY, THAT HER DAUGHTER, CHEPE, WHO IS A NURSE, WILL BE HERE NEXT FRIDAY TO TAKE HER HOME AND WILL TAKE CARE OF PT AT HOME. PT ASKED FOR [facility]. CM DISCUSSED POSSIBLE NEED OF DEBORAH LIFT AND ASKED ABOUT ADDITIONAL EQUIPMENT. PT THINKS BY NEXT WEEK, SHE WILL BE ABLE TO TRANSFER WITHOUT AIDE OF LIFT DEVICE. CM NOTIFIED DR. FREEDMAN WHO INFORMED CM THAT HE WILL ORDER BLOOD GAS ON FRIDAY TO DETERMINE RESPIRATORY DISCHARGE NEEDS AT THAT TIME. PT HAS SIGNED RIGHT OF CHOICE FOR [facility] ALREADY. PT REPORTS HER DAUGHTER, WHO IS A REGISTERED NURSE, WILL BE HERE FRIDAY OF NEXT WEEK TO TAKE CARE OF PT AT HOME. PT PLANS TO DISCHARGE HOME WITH FAMILY AND [facility]. CM TO FOLLOW AND ASSIST NEEDED. ROSANNA MONTAÑO DCP- Discharge Planning Updated by [email or web address]: Sandor Carrasquillo on 05/28/19 7:[address] Patient Name: TROY HAYWOOD Encounter No: [id number] : 1955 Primary Insurance: MEDICAID [facility] Date: Planned Disposition: Inpatient Rehab External Planned Provider: [facility] / [facility] DCP follow-up note: CM FAXED REFERRAL UPDATE TO [facility] / [facility] AT [phone]. CM WAITING ADMISSION DETERMINATION FROM [facility] INPATIENT RE[facility] IN [place]. ROSANNA Montaño DCP- Discharge Planning Updated by [id number]: Sandor Carrasquillo on 05/27/19 2:[address] Patient Name: TROY HAYWOOD Encounter No: [id number] : 1955 Primary Insurance: [place] Anticipated DC Date: Planned Disposition: Inpatient Rehab External Planned Provider: [facility] DCP follow-up note: CM FAXED REFERRAL UPDATE TO [facility]/ [facility] AT [phone]. CM WAITING ADMISSION DETERMINATION FROM [facility]PATIENT REH[facility] IN [place]. Sandor Carrasquillo, CASE MANAGEMENT Appended by Sandor Carrasquillo on 05/27/2019 14:41 CDT: CM CALLED [facility] OF [facility] / [facility], , LEFT MESSAGE ASKING FOR UPDATE ON REFERRAL AND TO KNOW IF THEY ARE STILL CONSIDERING PT FOR REHAB. CM WAITING ADMISSION DETERMINATION FROM [facility]PATIENT RE[facility] IN [place]. Sandor Carrasquillo, CASE MANAGEMENT DCP- Discharge Planning Updated by [id number]: Jesica Cartagena on 05/26/19 4:[address] Patient requested Trapeze bar to allow her to sit up in hospital bed. CM spoke Dr. Lawson and obtained approval for Trapeze bar. CM notified Radha in materials management of request for Trapeze bar. CM completed and gave Radha the order form for the Trapeze bar. Trapeze bar will be delivered. CM notified patient's CM, Christiano Carrasquillo, on status of Trapeze bar. DCP- Discharge Planning Updated by [id number]: Sandor Carrasquillo on 05/26/19 3:[address] Patient Name: TROY HAYWOOD Encounter No: [id number] : 1955 Primary Insurance: [place] Anticipated DC Date: Planned Disposition: Inpatient Rehab External Planned Provider: [facility] DCP follow-up note: CM SPOKE TO PT'S DAUGHTER VIA PHONE, HOUSTON SALGADO, . CM OBTAINED PERMISSION FROM PT TO DISCUSS CARE, TREATMENT AND DISCHARGE PLANNING WITH HOUSTON. HOUSTON INFORMED CM THAT PT WAS IN REHAB AT [facility] LAST YEAR AND THEY WANT REFERRED TO [facility] AGAIN. CM DISCUSSED PT'S VERY LOW LEVEL OF PHYSICAL CONDITIONING. PT'S DAUGHTER FEELS THAT PT CAN PARTICIPATE WITH THERAPY WITH GOAL TO RETURN HOME PREVIOUS WITH ABILITY TO TRANSFER TO ELECTRIC SCOOTER AND HOME HEALTH FOR CONTINUED HOME SERVICES. HOUSTON VERIFIED THAT PT HAS NO ADULTS ABLE TO LIVE WITH AND ASSIST PT AT HOME AT THIS TIME. HOUSTON ASKED ABOUT [facility] THAT MAY TAKE PT AT NO COSTS DUE TO INCOME. CM INFORMED HOUSTON THAT CM WAS NOT FAMILIAR WITH ANY OF THESE PROGRAMS. HOUSTON WOULD LIKE TO HAVE PT EVALUATED FOR REHAB AT [facility] PRIOR TO ANY CONSIDERATION OF PENITENTIARY PLACEMENT PT WILL NOT GET THERAPY THERE. CM SPOKE TO PT WHO IS IN AGREEMENT WITH PLAN. CM CALLED [facility] OF [facility] IN[facility]IENT RE[facility], , NOTIFIED OF REHAB REQUEST; PT HAS ONLY 24 ACUTE DAYS THAT STARTED IN JANUARY, IT DEPENDS ON HOW MANY HAVE BEEN ALREADY USED, PT'S CONDITION AND NEEDS THAT WOULD HAVE TO BE MET IN THE REMAINING DAYS THAT PT HAS TO USE FOR REHAB . CM FAXED REFERRALINFORMATION TO [facility] WITH CURRENT MAR AT [phone]. CM WAITING ADMISSION DETERMINATION FROM [facility] INPATIENT REHAB IN [place]. Sanodr Carrasquillo, CASE MANAGEMENT Appended by Sandor Carrasquillo on 05/26/2019 15:24 CDT: CM MET WITH PT, GRANDDAUGHTER, DAUGHTER HOUSTON VIA PHONE WITH CM PLAYER MANAGER, UNIT NURSE CHURN DRILLER, REPIRATORY THERAPIST AND PLAYER MANAGER OF THERAPY SERVICES REGARDING DISCHARGE PLANNING. CONCERNS OF PT'S PLAN TO GO HOME IN CURRENT CONDITION DISCUSSED. PT AND DAUGHTER HAVE ALREADY AS[facility]ED [facility], CM HAS SENT IT AND WAITING DETERMINATION. PLAN "B" WAS AGREED TO BE NURSING FACILITY IF NOT ACCEPTED TO [facility] AND THAT CM WOULD ATTEMPT TO FIND ONE THAT MAY DONATE REHAB SERVICES. PT'S DAUGHTER IS RESEARCHING [employer] FUNDING FROM [facility] FOR REHAB SERVICES. CM WAITING ADMISSION DETERMINATION FROM [facility] RE[facility] IN [place]. Sandor Carrasquillo, CASE MANAGEMENT DCP- Discharge Planning Updated by [id number]: Sandor Carrasquillo on 05/25/19 2:[address] Patient Name: TROY HAYWOOD Encounter No: [id number] : 1955 Primary Insurance: MEDICAID [facility] Date: Planned Disposition: Home HEALTH External Planned Provider: [facility], [facility]ISITING [facility] OF [facility] follow-up note: CM MET WITH PT IN ROOM TO DISCUSS DISCHARGE NEEDS AND PLANNING. CM DISCUSSED AVAILABILITY OF HOME HEALTH, REHAB SERVICES AND MEDICAL EQUIPMENT. PT REFUSES RETIREMENT FACILITY PLACEMENT. PT STATES PLAN TO RETURN HOME. 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 PT WAS ABLE TO AMBULATE SMALL DISTANCES AND TRANSFER SELF FROM BED TO ELECTRIC WHEELCHAIR AT HOME. PT THINKS SHE IS GOING TO BE ABLE TO TRANSFER SELF TO GO BACK HOME. PT WANTS HOME HEALTH RESUMED TO GO HOME. CM EXPRESSED CONCERN OF PT'S CURRENT LEVEL OF FUNCTIONING AND RETURNING HOME. PT DENIES HAVING FRIENDS OR FAMILY TO ASSIST WITH HER CARE AT HOME BUT IS NOT GOING TO A PENITENTIARY. PT THINKS SHE WILL NEED AN AMBULANCE FOR TRANSPORT HOME HER ELECTRIC WHEELCHAIR IS THERE. CM EXPLAINED TO PT THAT SHE WILL NEED TO DEMONSTRATE WITH THERAPY THE ABILITY TO TRANSFER AND SIT IN CHAIR FOR DISCHARGE. PT STATED UNDRESTANDING. CHOICE FOR [facility] VISITING NURSES HOME HEALTH SIGNED. 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 PT REFUSED NURSING FACILITY PLACEMENT. PT WILL NEED TO DEMONSTRATE ABILITY TO TRANSFER AND SIT IN CHAIR FOR DISCHARGE SHE HAS ELECTRIC WHEELCHAIR AT HOME. CM TO ARRANGE HOME HEALTH RESUMPTION WITH [facility] VISITING NURSES AGENCY IN [place] FOR DISCHARGE HOME. CM TO CONTINUE TO FOLLOW AND ASSIST NEEDED. Sandor Carrasquillo, CASE MANAGEMENT DCP- Discharge Planning Updated by [id number]: Aleisha Monroe on 05/19/19 7:[address] Patient Name: TROY HAYWOOD Admission Status: ER Accout number: [id number] Admission Date: 05-14-2019 : 1955 Admission Diagnosis: Attending: FABIO PINEDA Current LOS: 5 Anticipated DC Date: Planned Disposition: Home or Self Care Primary Insurance: [place] Discharge Planning Comments: CM met with patient and daughter to complete initial dc planning assessment. Patient recently extubated earlier today. CM educated patient on the CM role and verbal consent given by patient to complete assessment. Patient lives at home with her two young grand-daughters where she is independent with her care. At discharge patient plans to return home and feels this is a safe discharge. CM discussed availability of home health, rehab services, and medical equipment. Patient has Home 02 and HH with unknown providers. CM will f/u with patient @ later date to see if she is able to give providers. Patient denied known discharge needs at this time. CM will continue to follow and will assist as needed with dc plans/needs. Restaurant Hospitality Manager: Aleisha Monroe DCPIA - Discharge Planning Initial Assessment Updated by [id number]: Sandor Carrasquillo on 05/28/19 9:36 am * How many steps to enter\\exit or inside your home? * PCP uncertain ? * Pharmacy [place] * Preadmission Environment Home with Family * ADLs Independent * Other Equipment HOME 02, WALKER, SCOOTER, BSC, SC * List name and contact numbers for known caregivers / representatives who currently or will assist patient after discharge: CHEPE SUN - DAUGHTER- [phone] HOUSTON SALGADO, DTR - [phone] * Verbal permission to speak to the caregivers and representatives has been obtained from the patient. Yes * Community resources currently utilized Home Health * Please name any agencies selected above. [facility] * Additional services required to return to the preadmission environment? No * Can the patient safely return to the preadmission environment? Yes * Has this patient been hospitalized within the prior 30 days at any hospital? No Coverage Notice Reviewer: NAYLA Carrasquillo Notice Issued Date-Time: 05/25/2019 14:05 Notice Type: Patient Choice Letter Notice Delivered To: Patient Relationship to Patient: Child Welfare Director Name: Delivery Method: HAND - Hand Delivered Marry Days: Prior Verbal Notification: Recipient Understood Notice: Yes Recipient Signature: Yes Med Rec Note Co-signed by Attending: Coverage Notice Comment: [facility]- VISITING NURSES [facility] [place] [facility] Reviewer: NAYLA Carrasquillo Notice Issued Date-Time: 05/31/2019 14:50 Notice Type: Patient Choice Letter Notice Delivered To: Patient Relationship to Patient: Child Welfare Director Name: Delivery Method: HAND - Hand Delivered Marry Days: Prior Verbal Notification: Recipient Understood Notice: Yes Recipient Signature: Yes Med Rec Note Co-signed by Attending: Coverage Notice [facility] Last DP export: 06/02/19 8:20 a Patient Name: TROY HAYWOOD Page [id number] at 1657 All edits/amendments must be made on the electronic document DICTATION DATE: 06/02/191656 PODIATRY TEACHER: MISHEL 06/02/191656 RPT#: [id number] DC DATE: STATUS: ADM IN [facility] [address] [place] [address] END OF REPORT
[2019-06-02 18:31] VITALS: BP 137/53
--- NOTE | 2019-06-02 19:25 | NUR ---
LYING IN BED. ALERT AND ORIENTED X4. O2 @ 5L/HFC. BARIATRIC BED IN USE. DENIES PAIN. RESP IRREG, LABORED AT TIMES. PT IS MORBIDLY OBESE. EXCORIATION NOTED IN AXILLA, ABD FOLDS. DRSG NOTED TO ABD FOLD. BRUISES NOTED TO BUE AND BACK. BALLARD CATH PATENT AND DRAINING DK YELLOW URINE. ABD IS DISTENDED, FIRM, BS ARE HYPOACTIVE. REPORTS NO BM SINCE 05/19/19. JUST FINISHED DRINKING MAG CITRATE. INFORMED PT OF ENEMA ADMINISTRATION TONIGHT AND SHE VERBALIZED UNDERSTANDING. EDEMA NOTED TO BLE. RT CVL IS SALINE LOCKED. SR ELEVATED. CL IN REACH.
[2019-06-02 20:00] VITALS: BP 138/60
--- NOTE | 2019-06-02 23:02 | NUR ---
ENEMA GIVEN AT THIS TIME. HARD STOOL FELT IN RECTAL VAULT BUT TOO HIGH TO REMOVE DIGITALLY.
[2019-06-03] VITALS: BP 152/60
--- NOTE | 2019-06-03 00:10 | NUR ---
EXPELLED BROWN LIQ STOOL. HARD FORMED STOOL FELT IN VAULT AND STAFF WAS ABLE TO REMOVE SOME HARD SMALL STOOLS.
--- NOTE | 2019-06-03 01:02 | NUR ---
SMALL BM NOTED. PERICARE PERFORMED. CALMOSEPTINE APPLIED. CL IN REACH. NOTIFIED RT THAT PT IS READY FOR BIPAP.
[2019-06-03 04:00] VITALS: BP 121/52
--- NOTE | 2019-06-03 05:07 | NUR ---
HAS SLEPT WELL FOR THE LAST FEW HOURS. BIPAP IN USE. NO DISTRESS. CL IN REACH.
--- NOTE | 2019-06-03 07:50 | NUR ---
A/A/OX4. RESTING QUIETLY IN BED POSITIONED ON BACK. DENIES ANY PAIN OR REQUESTS AT PRESENT TIME. BALLARD PATENT AND DRAINING LIGHT YELLOW URINE TO BEDSIDE DRAINAGE. RIGHT TRIPLE LUMEN CL TO RIGHT IJ. DRESSING C/D/I. 02 ON PER NC AT 5 L/M HF. ASSESSMENT COMPLETED AND WILL CONTINUE POC.
--- NOTE | 2019-06-03 09:02 | MORECARE ---
CASE MANAGEMENT DISCHARGE SUMMARY PATIENT: TROY HAYWOOD UNIT: [id number] ADM DATE: 05/14/19 AGE: 64 : 57 SEX: F ROOM/BED: D.2140 AUTHOR: DAYDAY,DOC PHYSICIAN: REFERRING PHYSICIAN: FABIO PINEDA MD DATE OF SERVICE: 06/03/19 Discharge Plan Patient Name: TROY HAYWOOD Facility: [facility]:[place] : 1955 Planned Disposition: Nursing Facility [facility] Cert Anticipated Discharge Date: 06/02/19 Discharge Date: Expected LOS: 19 Initial Reviewer: [id number] Initial Review Date: 05/19/2019 Generated: 06/03/19 10:02 am Comments DCP- Discharge Planning Updated by [email or web address]: Sandor Carrasquillo on 06/03/19 7:[address] Patient Name: TROY HAYWOOD Encounter No: [id number] : 1955 Primary Insurance: [place] Anticipated DC Date: 06-02-2019 Planned Disposition: Nursing Facility [facility] Cert External Planned Provider: [facility] TERM [facility] MEDICAID BED DISCHARGE PLANNING NOTE: CM FAXED REFERRAL UPDATE TO [facility] AT [phone]. CM WAITING ADMISSION DETERMINATION FROM [facility]. WAITING FAMILY TO PROVIDE FINANCIAL INFORMATION FOR POSTER CARE MEDICAID APPLICATION TO FACILITY. ROSANNA Monroe DCP- Discharge Planning Updated by [id number]: Sandor Carrasquillo on 06/02/19 3:[address] Patient Name: TROY HAYWOOD Encounter No: [id number] : 1955 Primary Insurance: [place] Anticipated DC Date: 06-02-2019 Planned Disposition: Nursing Facility [facility] Cert External Planned Provider: [facility], JAIL CARE MEDICAID BED DCP follow-up note: CM FAXED REFERRAL UPDATE TO [facility] AT [phone]. CM WAITING ADMISSION DETERMINATION FROM [facility] FOR [facility]ER CARE. Sandor Carrasquillo CASE MANAGEMENT Appended by Sandor Carrasquillo on 06/02/2019 16:50 SHANK SANDER: CM RECEIVED CALL FROM LUIS OF [facility], , THEY RECEIVED THE UPDATE BY FAX AND WILL CONTACT FAMILY REGARDING FINANCIALS. LUIS REPORTS THEY ARE STILL WAITING ON NURSING TO ACCEPT FOR JAIL CARE AND WILL ALSO NEED FINANCIAL CLEARANCE TO ENTER THE FACILITY. CM WAITING ADMISSION DETERMINATION FROM [facility] FOR POSTER CARE. [facility] CONTACTING FAMILY TO ASSIST WITH FINANCIAL INFORMATION FOR JAIL CARE MEDICAID APPLICATION. Sandor Carrasquillo CASE MANAGEMENT DCP- Discharge Planning Updated by [id number]: Sandor Carrasquillo on 06/01/19 4:[address] Patient Name: TROY HAYWOOD Encounter No: [id number] : 1955 Primary Insurance: [place] Anticipated DC Date: 06-02-2019 Planned Disposition: Nursing Facility [facility] Cert External Planned Provider: [facility], JAIL [facility] MEDICAID BED DCP follow-up note: CM MET WITH PT AND DAUGHTER HOUSTON, WHO HAS MADE IT FROM [place]. UPDATE PROVIDED. CM CALLED [facility] PICKEREL INFORMED CM THAT REFERRAL FROM AND [employer] [facility] WAS RECEIVED, STAFF IN MEETING TODAY AND THEY WILL FINISH ADMISSION REVIEW TOMORROW, 06-02-19. CM NOTIFIED PT AND DAUGHTER IN ROOM. CM WAITING ADMISSION DETERMINATION FROM [facility] FOR POSTER CARE. Sandor Carrasquillo CASE DEVAUGHN DCP- Discharge Planning Updated by [id number]: Sandor Carrasquillo on 05/31/19 3:[address] Patient Name: TROY HAYWOOD Encounter No: [id number] : 1955 Primary Insurance: [place] Anticipated DC Date: 06-01-2019 Planned Disposition: Nursing Facility [facility] Cert External Planned Provider: [facility], JAIL CARE MEDICAID BED DCP follow-up note: AFTER SEVERAL VISITS WITH PT IN ROOM, PHONE CALLS WITH DAUGHTERS, [employer] [facility] AND [facility], PT DECIDED TO CONSENT TO 30 DAYS OF JAIL CARE AT [facility] AFTER PT'S DACE, WITH AIDE OF [facility], LOCATED [facility] WHO WILL CONSIDER PT FOR CARE. PT SIGNED CHOICE. CM FAXED REFERRAL INFORMATION TO [facility] AT [phone]. CM WAITING ADMISSION DETERMINATION FROM [facility] FOR JAIL CARE. Sandor Carrasquillo CASE MANAGEMENT DCP- Discharge Planning Updated by [id number]: Sandor Carrasquillo on 05/28/19 3:[address] Patient Name: TROY HAYWOOD Encounter No: [id number] : 1955 Primary Insurance: [place] Anticipated DC Date: 06-02-2019 Planned Disposition: Home with Home Health External Planned Provider: [facility] DCP follow-up note: CM RECEIVED CALL FROM PT'S DAUGHTER, CHEPE, WHO VERIFIED THAT SHE WILL COME NEXT WEEK TO STAY WITH PT FOR TWO OR THREE WEEKS TO CARE FOR PT AT HOME. CHEPE WILL DISCUSS WITH HER MOTHER THAT SHE WILL HAVE TO BE ABLE TO STAND AND TRANSFER FOR CHEPE TO CARE FOR HER. CM REVIEWED THERAPY NOTES TO PRESENT. 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 PT HAS BEDSIDE COMMODE AND WHEELCHAIR AT HOME. CHEPE REPORTS NEED OF [facility] RESUMPTION. CHEPE WILL DISCUSS WITH PT AND TRY TO MOTIVATE HER TO MEET THERAPY GOALS PRIOR TO ARRIVAL ON NEXT FRIDAY OR FRIDAY. PT'S DAUGHTER PLANS TO TAKE PT HOME NEXT FRIDAY OR FRIDAY, THEY WILL NEED [facility] RESUMPTION, DENIES FURTHER NEEDS. CM TO FOLLOW AND ASSIST NEEDED. Sandor Carrasquillo CASE MANAGEMENT DCP- Discharge Planning Updated by [id number]: Sandor Carrasquillo on 05/28/19 2:[address] Patient Name: TROY HAYWOOD Encounter No: [id number] : 1955 Primary Insurance: [place] Anticipated DC Date: Planned Disposition: Nursing Facility [facility] External Planned Provider: TO BE DETERMINED DCP follow-up note: CM SPOKE TO [facility], SHE INFORMED CM THAT UPDATES HAVE BEEN RECEIVED, PT IS NOT MAKING ENOUGH PROGRESS WITH THERAPY THAT THEY DO NOT BELIEVE THAT PT WILL BE ABLE TO ACHIEVE THERAPY GOALS IN THE REMAINING 10 DAYS OF ACUTE DAYS THAT PT HAS REMAINING. CM NOTIFIED PT AND PROVIDED PT WITH NURSING FACILITY LISTING OF ALL AVAILABLE FACILITIES [place]IN [address] [place]. PT WILL SPEAK TO HER DAUGHTER AND NOTIFY CM OF HER CHOICES. CHRISTOPHER CALLED HOU[facility]ON SALGADO, , TWICE; AUTOMATED MESSAGE INFORMED CM THAT THE NUMBER WAS RESTRICTED OR CURRENTLY UNAVAILABLE. CM WAITING PT AND FAMILY TO PROVIDE NURSING FACILITY CHOICES FOR JAIL CARE. Sandor Carrasquillo, CASE MANAGEMENT Appended by Sandor Carrasquillo on 05/28/2019 12:07 CDT: CM SPOKE TO PT IN ROOM, NOTIFIED PT THAT CM TRIED AND COULD NOT REACH DAUGHTER HOUSTON VIA PHONE. PT REPORTS SHE SPOKE TO HOUSTON WHO TOLD HER THAT [facility] WILL NOT TAKE HER DUE TO WEIGHT; PT'S DAUGHTER TOLD PT THAT [facility] PROBAB[facility] WILL NOT TAKE HER. PT REPORTS THERE IS ONE IN [place] THAT MIGHT CONSIDER HER. CM OFFERED CHOICE FORM FOR SIGNATURE SO THAT CM COULD SEND REFERRALS AND BEGIN CALLING TO FIND PLACEMENT. PT REFUSED AND STATES SHE HAS A DAUGHTER, CHEPE, WHO IS A REGISTERED NURSE, THAT MAY BE COMING TO TAKE CARE OF PT AT HOME. PT'S DAUGHTER HOUSTON IS CALLING DAUGHTER CHEPE TO DISCUSS THE OPTION. PT STATES SHE WILL LET CM KNOW THE OUTCOME AND IF SHE WANTS CM TO EXPLORE LONGTERM CARE FOR HER. CM WAITING PT AND FAMILY TO PROVIDE NURSING FACILITY CHOICES AND FOR PT TO SIGN CONSENT FOR LONGTERM PLACEMENT. PT IS NOW HOPEFUL THAT HER DAUGHTER WHO IS A REGISTERED NURSE WILL COME AND STAY WITH PT AND TAKE CARE OF HER AT HOME. SANDOR CARRASQUILLO, CASE MANAGEMENT Appended by Sandor Carrasquillo on 05/28/2019 14:27 CDT: CM RECEIVED MESSAGE THAT PT WANTS TO SEE CM. CM MET WITH PT IN ROOM WHO INFORMED CM THAT SHE HIS NOT GOING TO A LONGTERM, THAT HER DAUGHTER, CHEPE, WHO IS A NURSE, WILL BE HERE NEXT FRIDAY TO TAKE HER HOME AND WILL TAKE CARE OF PT AT HOME. PT ASKED FOR [facility] RESUMPTION. CM DISCUSSED POSSIBLE NEED OF DEBORAH LIFT AND ASKED ABOUT ADDITIONAL EQUIPMENT. PT THINKS BY NEXT WEEK, SHE WILL BE ABLE TO TRANSFER WITHOUT AIDE OF LIFT DEVICE. CM NOTIFIED DR. FREEDMAN WHO INFORMED CM THAT HE WILL ORDER BLOOD GAS ON FRIDAY TO DETERMINE RESPIRATORY DISCHARGE NEEDS AT THAT TIME. PT HAS SIGNED RIGHT OF CHOICE FOR [facility] ALREADY. PT REPORTS HER DAUGHTER, WHO IS A REGISTERED NURSE, WILL BE HERE FRIDAY OF NEXT WEEK TO TAKE CARE OF PT AT HOME. PT PLANS TO DISCHARGE HOME WITH FAMILY AND [facility]. CM TO FOLLOW AND ASSIST NEEDED. SANDOR CARRASQUILLO, CASE MANAGEMENT DCP- Discharge Planning Updated by [id number]: Sandor Carrasquillo on 05/28/19 7:[address] Patient Name: TROY HAYWOOD Encounter No: [id number] : 1955 Primary Insurance: [place] Anticipated DC Date: Planned Disposition: Inpatient Rehab External Planned Provider: [facility] DCP follow-up note: CM FAXED REFERRAL UPDATE TO [facility] AT [phone]. CM WAITING ADMISSION DETERMINATION FROM [facility] IN [place]. Sandor Carrasquillo, CASE MANAGEMENT DCP- Discharge Planning Updated by [id number]: Sandor Carrasquillo on 05/27/19 2:[address] Patient Name: TROY HAYWOOD Encounter No: [id number] : 1955 Primary Insurance: [place] Anticipated DC Date: Planned Disposition: Inpatient Rehab External Planned Provider: [facility] DCP follow-up note: CM FAXED REFERRAL UPDATE TO [facility] AT [phone]. CM WAITING ADMISSION DETERMINATION FROM [facility] IN [place]. Sandor Carrasquillo, CASE MANAGEMENT Appended by Sandor Carrasquillo on 05/27/2019 14:41 CDT: CM CALLED [facility], , LEFT MESSAGE ASKING FOR UPDATE ON REFERRAL AND TO KNOW IF THEY ARE STILL CONSIDERING PT FOR REHAB. CM WAITING ADMISSION DETERMINATION FROM [facility] IN [place]. Sanodr Carrasquillo, CASE MANAGEMENT DCP- Discharge Planning Updated by [id number]: Jesica Cartagena on 05/26/19 4:[address] Patient requested Trapeze bar to allow her to sit up in hospital bed. CM spoke Dr. Lawson and obtained approval for Trapeze bar. CM notified Radha in materials management of request for Trapeze bar. CM completed and gave Radha the order form for the Trapeze bar. Trapeze bar will be delivered. CM notified patient's CM, Christiano Carrasquillo, on status of Trapeze bar. DCP- Discharge Planning Updated by [id number]: Sandor Carrasquillo on 05/26/19 3:[address] Patient Name: TROY HAYWOOD Encounter No: [id number] : 1955 Primary Insurance: MEDICAID [facility] DC Date: Planned Disposition: Inpatient Rehab External Planned Provider: [facility] DCP follow-up note: CM SPOKE TO PT'S DAUGHTER VIA PHONE, HOUSTON SALGADO, . CM OBTAINED PERMISSION FROM PT TO DISCUSS CARE, TREATMENT AND DISCHARGE PLANNING WITH HOUSTON. HOUSTON INFORMED CM THAT PT WAS IN REHAB AT [facility] LAST YEAR AND THEY WANT REFERRED TO [facility] AGAIN. CM DISCUSSED PT'S VERY LOW LEVEL OF PHYSICAL CONDITIONING. PT'S DAUGHTER FEELS THAT PT CAN PARTICIPATE WITH THERAPY WITH GOAL TO RETURN HOME PREVIOUS WITH ABILITY TO TRANSFER TO ELECTRIC SCOOTER AND HOME HEALTH FOR CONTINUED HOME SERVICES. HOUSTON VERIFIED THAT PT HAS NO ADULTS ABLE TO LIVE WITH AND ASSIST PT AT HOME AT THIS TIME. HOUSTON ASKED ABOUT [facility] THAT MAY TAKE PT AT NO COSTS DUE TO INCOME. CM INFORMED HOUSTON THAT CM WAS NOT FAMILIAR WITH ANY OF THESE PROGRAMS. HOUSTON WOULD LIKE TO HAVE PT EVALUATED FOR REHAB AT [facility] PRIOR TO ANY CONSIDERATION OF LONGTERM PLACEMENT PT WILL NOT GET THERAPY THERE. CM SPOKE TO PT WHO IS IN AGREEMENT WITH PLAN. CM CALLED [facility], , NOTIFIED OF REHAB REQUEST; PT HAS ONLY 24 ACUTE DAYS THAT STARTED IN JANUARY, IT DEPENDS ON HOW MANY HAVE BEEN ALREADY USED, PT'S CONDITION AND NEEDS THAT WOULD HAVE TO BE MET IN THE REMAINING DAYS THAT PT HAS TO USE FOR REHAB . CM FAXED REFERRALINFORMATION TO [facility] WITH CURRENT MAR AT [phone]. CM WAITING ADMISSION DETERMINATION FROM [facility] IN [place]. Sandor Carrasquillo, CASE MANAGEMENT Appended by Sandor Carrasquillo on 05/26/2019 15:24 CDT: CM MET WITH PT, GRANDDAUGHTER, DAUGHTER HOUSTON VIA PHONE WITH CM SOURCING ASSOCIATE, UNIT NURSE YARD CRANE OPERATOR, REPIRATORY THERAPIST AND SOURCING ASSOCIATE OF THERAPY SERVICES REGARDING DISCHARGE PLANNING. CONCERNS OF PT'S PLAN TO GO HOME IN CURRENT CONDITION DISCUSSED. PT AND DAUGHTER HAVE ALREADY ASKED FOR REFERRAL TO [facility] RE[facility], CM HAS SENT IT AND WAITING DETERMINATION. PLAN "B" WAS AGREED TO BE NURSING FACILITY IF NOT ACCEPTED TO [facility] AND THAT CM WOULD ATTEMPT TO FIND ONE THAT MAY DONATE REHAB SERVICES. PT'S DAUGHTER IS RESEARCHING [employer] FROM [facility] FOR REHAB SERVICES. CM WAITING ADMISSION DETERMINATION FROM [facility] IN [place]. Sandor Carrasquillo CASE MANAGEMENT DCP- Discharge Planning Updated by [id number]: Sandor Carrasquillo on 05/25/19 2:[address] Patient Name: TROY HAYWOOD Encounter No: [id number] : 1955 Primary Insurance: [place] Anticipated DC Date: Planned Disposition: Home HEALTH External Planned Provider: [facility], VISITING NURSES [facility] DCP follow-up note: CM MET WITH PT IN ROOM TO DISCUSS DISCHARGE NEEDS AND PLANNING. CM DISCUSSED AVAILABILITY OF HOME HEALTH, REHAB SERVICES AND MEDICAL EQUIPMENT. PT REFUSES CORRECTION FACILITY PLACEMENT. PT STATES PLAN TO RETURN HOME. 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 PT WAS ABLE TO AMBULATE SMALL DISTANCES AND TRANSFER SELF FROM BED TO ELECTRIC WHEELCHAIR AT HOME. PT THINKS SHE IS GOING TO BE ABLE TO TRANSFER SELF TO GO BACK HOME. PT WANTS HOME HEALTH RESUMED TO GO HOME. CM EXPRESSED CONCERN OF PT'S CURRENT LEVEL OF FUNCTIONING AND RETURNING HOME. PT DENIES HAVING FRIENDS OR FAMILY TO ASSIST WITH HER CARE AT HOME BUT IS NOT GOING TO A LONGTERM. PT THINKS SHE WILL NEED AN AMBULANCE FOR TRANSPORT HOME HER ELECTRIC WHEELCHAIR IS THERE. CM EXPLAINED TO PT THAT SHE WILL NEED TO DEMONSTRATE WITH THERAPY THE ABILITY TO TRANSFER AND SIT IN CHAIR FOR DISCHARGE. PT STATED UNDRESTANDING. CHOICE FOR [facility] VISITING NURSES HOME HEALTH SIGNED. 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 PT REFUSED NURSING FACILITY PLACEMENT. PT WILL NEED TO DEMONSTRATE ABILITY TO TRANSFER AND SIT IN CHAIR FOR DISCHARGE SHE HAS ELECTRIC WHEELCHAIR AT HOME. CM TO ARRANGE HOME HEALTH RESUMPTION WITH [facility] VISITING NURSES [facility] FOR DISCHARGE HOME. CM TO CONTINUE TO FOLLOW AND ASSIST NEEDED. Sandor Carrasquillo CASE MANAGEMENT DCP- Discharge Planning Updated by [id number]: Aleisha Monroe on 05/19/19 7:[address] Patient Name: TROY HAYWOOD Admission Status: ER Accout number: [id number] Admission Date: 05-14-2019 : 1955 Admission Diagnosis: Attending: FABIO PINEDA Current LOS: 5 Anticipated DC Date: Planned Disposition: Home or Self Care Primary Insurance: [place] Discharge Planning Comments: CM met with patient and daughter to complete initial dc planning assessment. Patient recently extubated earlier today. CM educated patient on the CM role and verbal consent given by patient to complete assessment. Patient lives at home with her two young grand-daughters where she is independent with her care. At discharge patient plans to return home and feels this is a safe discharge. CM discussed availability of home health, rehab services, and medical equipment. Patient has Home 02 and HH with unknown providers. CM will f/u with patient @ later date to see if she is able to give providers. Patient denied known discharge needs at this time. CM will continue to follow and will assist as needed with dc plans/needs. Undercutter Operator: Aleisha Monroe DCPIA - Discharge Planning Initial Assessment Updated by NAYLA: Sandor Carrasquillo on 05/28/19 9:36 am * How many steps to enter\\exit or inside your home? * PCP uncertain ? * Pharmacy [place] * Preadmission Environment Home with Family * ADLs Independent * Other Equipment HOME 02, WALKER, SCOOTER, BSC, SC * List name and contact numbers for known caregivers / representatives who currently or will assist patient after discharge: CHEPE SUN - DAUGHTER- [phone] HOUSTON SALGADO, DTR - [phone] * Verbal permission to speak to the caregivers and representatives has been obtained from the patient. Yes * Community resources currently utilized Home Health * Please name any agencies selected above. [facility] * Additional services required to return to the preadmission environment? No * Can the patient safely return to the preadmission environment? Yes * Has this patient been hospitalized within the prior 30 days at any hospital? No Coverage Notice Reviewer: [id number] Josef Carrasquillo Notice Issued Date-Time: 05/25/2019 14:05 Notice Type: Patient Choice Letter Notice Delivered To: Patient Relationship to Patient: Dampener Operator Name: Delivery Method: HAND - Hand Delivered Marry Days: Prior Verbal Notification: Recipient Understood Notice: Yes Recipient Signature: Yes Med Rec Note Co-signed by Attending: Coverage Notice Comment: [facility]- VISITING NURSES [facility] [place] [facility]) Reviewer: [id number] Josef Carrasquillo Notice Issued Date-Time: 05/31/2019 14:50 Notice Type: Patient Choice Letter Notice Delivered To: Patient Relationship to Patient: Dampener Operator Name: Delivery Method: HAND - Hand Delivered Marry Days: Prior Verbal Notification: Recipient Understood Notice: Yes Recipient Signature: Yes Med Rec Note Co-signed by Attending: Coverage Notice Comment: [facility] Last DP export: 06/02/19 3:57 p Patient Name: TROY HAYWOOD Page [id number] at 0902 All edits/amendments must be made on the electronic document DICTATION DATE: 06/03/19901 CLOCK MAKER: MISHEL 06/03/19901 RPT#: [id number] DC DATE: STATUS: ADM IN [facility] [address] [place] [address] END OF REPORT
--- NOTE | 2019-06-03 09:15 | NUR ---
OT NOTE: PT REPORTED NOT FEELING WELL DUE TO MINIMAL SLEEP LAST NIGHT. BED MOB WITH MAX ASSIST; SUPINE TO SIT WITH MAX ASSIST. ABLE TO SIT UP ON EOB X 10 MIN TO PERFORM LE EXS; ALSO DEMONSTRATED UE EXS WITH TRAPEZE. MAX ASSISST TO GAURAV AND DOFF SOCKS; SET UP TO WASH FACE, HANDS, AND ARMS. REQUIRES TOTAL ASSIST WITH PERINEAL CARE. SAÚL ESCAMILLA, OTR/L
--- NOTE | 2019-06-03 12:40 | NUR ---
I have reviewed this patient and I concur with the Shift Assessment completed by the Licensed Practical Nurse today this shift.
[2019-06-03 13:16] VITALS: BP 110/57
--- NOTE | 2019-06-03 15:09 | NUR ---
OT NOTE: PT COMPLETED BED MOB TASKS WITH MAX A. PT COMPLETED SUPINE TO SIT WITH MAX AX 2. PT COMPLETED SIT TO STAND WITH MAX A. PT COMPLETED BUE AROM AXS. THANK YOU, BLADIMIR MANCERA
[2019-06-03 18:43] VITALS: BP 118/49
--- NOTE | 2019-06-03 19:05 | NUR ---
AWAKE AND ALERT BED LOW AND LOCKED CAQLL LIGHT IS WITH PT AND SHE DENIES NEEDS AT THIS TIME
[2019-06-03 20:00] VITALS: BP 106/49
[2019-06-04] VITALS: BP 106/52
--- NOTE | 2019-06-04 01:52 | NUR ---
I have reviewed this patient and I concur with the Shift Assessment completed by the Licensed Practical Nurse today this shift.
[2019-06-04 04:00] VITALS: BP 120/51
--- NOTE | 2019-06-04 07:45 | NUR ---
A/A/OX4. DENIES ANY PAIN OR DISCOMFORT AND NO REQUESTS VOICED. BALLARD PATENT AND DRAINING LIGHT RIO URINE TO BEDSIDE DRAINAGE. RIGHT IJ TRIPLE LUMEN CL PATENT WITH DRESSING C/D/I. SCDS ON AND WORKING PROPERLY. ASSESSMENT COMPLETED AND WILL CONTINUE POC. CALL LIGHT IN REACH.
[2019-06-04 09:35] VITALS: BP 106/51
--- NOTE | 2019-06-04 11:36 | NUR ---
OT NOTE: PT VERY FRUSTRATED ABOUT REHAB/SNF SITUATION. REPORTED THAT SHE DID NOT FEEL WELL TODAY PREVIOUS DAY, BUT DID ATTEMPT THERAPY ANYWAY. BED MOB WITH MAX ASSIST; EOB SITTING WITH SBA; SIT TO STAND WITH MOD ASSIST X 2.. PT UNABLE TO STAND GREATER THAN A FEW SECONDS. NOTED BARIATRIC CHAIR IN PTS ROOM; AFTER EXAMINATION OF CHAIR, INFORMED CM THAT THIS WOULD NOT WORK FOR PT. LEGS OF CHAIR DO NOT FOLD TO 90 DEGREES, AND THERE IS A FOOT REST THAT DOES NOT FOLD DOWN ENOUGH FOR PT TO GET INTO CHAIR. PT HAS VERY SHORT STATURE AND IS UNABLE TO WT SHIFT ON LES. IN ORDER TO USE THIS CHAIR, PT WOULD HAVE TO STEP BACK ON TO FOOT REST AND STAND ON FOOT REST IN ORDER TO SIT BACK IN CHAIR. ASSISTED PT BACK TO BED WITH MAX ASSIST X 2; REPOSITIONED WITH MAX ASSIST. BATHED PTS BACK AND APPLIED LOTION. PT ABLE TO WASH FACE AND HANDS. PT ABLE TO DEMONSTRATED UE AND LE EXS THAT SHE PERFORMS IN BED. CONTINUED TO ENCOURAGAE PT TO PERFORM EXS OFTEN POSSIBLE. SAÚL ESCAMILLA, OTR/L
--- NOTE | 2019-06-04 12:03 | MORECARE ---
CASE MANAGEMENT DISCHARGE SUMMARY PATIENT: TROY HAYWOOD UNIT: [id number] ADM DATE: 05/14/19 AGE: 64 : 57 SEX: F ROOM/BED: D.8590 AUTHOR: DAYDAY,DOC PHYSICIAN: REFERRING PHYSICIAN: FABIO PINEDA MD DATE OF SERVICE: 06/04/19 Discharge Plan Patient Name: TROY HAYWOOD Facility: [facility]:[place] : 1955 Planned Disposition: Nursing Facility YUN Cert Anticipated Discharge Date: 06/02/19 Discharge Date: Expected LOS: 19 Initial Reviewer: [id number] Initial Review Date: 05/19/2019 Generated: 06/04/19 1:03 pm Comments DCP- Discharge Planning Updated by [id number]: Sandor Carrasquillo on 06/04/19 11:[address] Patient Name: TROY HAYWOOD Encounter No: [id number] : 1955 Primary Insurance: MEDICAID [place] Anticipated DC Date: 06-02-2019 Planned Disposition: Nursing Facility YUN Cert External Planned Provider: WAITING FAMILY DECISION DCP follow-up note: CM RECEIVED CALL FROM ANNIE OF [facility] WHO ADVISED CM THAT PT HAS BEEN FIANCIALLY DENIED FOR PLACEMENT. CM SPOKE TO PT IN ROOM WHO ADVISED THAT SHE UNDERSTOOD THEY WERE JUST GOING TO LEAVE HER LAYING IN BED FOR A MONTH AND NOT GIVE HER ANY REHAB SERVICES. CM EXPLAINED THAT MEDICAID DOES NOT PAY FOR REHAB SERVICES, ONLY G[facility]MENT [employer] CARE AND PT WOULD RECEIVE WHAT THEY CALL "RESTORATIVE CARE" FROM STAFF AT ANY [facility], NOT THERAPY SERVICES. PT STATES SHE IS NOW ABLE TO STAND UP WITH THERAPY HERE. CM EXPLAINED THAT PT IS GETTING 8 TO 16 MINUTES OF THERAPY PER DAY AND THAT ALTHOUGH CM WAS HAPPY WITH PROGRESSION, PT IS MEDICALLY STABLE TO LEAVE THE HOSPITAL AND THAT SHE WOULD RECEIVE MORE THERAPY AT HOME WITH HOME HEALTH THAN IN THIS ACUTE HOSPITAL SETTING. PT STATES SHE IS NOT SURE WHAT HAPPENED, THAT CHEPE IS TAKING CARE OF THIS FOR HER AND THAT CHEPE WILL BE TO THE HOSPITAL IN A LITTLE WHILE TO SPEAK TO CM; PT BELIVES THAT CHEPE IS AGAIN WORKING ON TRYING TO GET [facility]ARE THROUGH THE [employer] [facility]. PT HAS BEEN FINANCIALLY DECLINED FOR [facility]ARE PLACEMENT BY [facility]. PT DEFERRING PLANNING TO HER DAUGHTER, CHEPE. CM WAITING FAMILY TO ARRIVE TO DISCUSS FURTHER DISCHARGE PLANNING. ROSANNA Montaño DCP- Discharge Planning Updated by [id number]: Sandor Carrasquillo on 06/03/19 7:[address] Patient Name: TROY HAYWOOD Encounter No: [id number] : 1955 Primary Insurance: MEDICAID [place] Anticipated DC Date: 06-02-2019 Planned Disposition: Nursing Facility [facility] Cert External Planned Provider: [facility], [facility] [employer] MEDICAID BED DISCHARGE PLANNING NOTE: CM FAXED REFERRAL UPDATE TO [facility] AT [phone]. CM WAITING ADMISSION DETERMINATION FROM [facility] FOR [facility] CARE. WAITING FAMILY TO PROVIDE FINANCIAL INFORMATION FOR RETIREMENT CARE MEDICAID APPLICATION TO FACILITY. ROSANNA Montaño DCP- Discharge Planning Updated by [id number]: Sandor Carrasquillo on 06/02/19 3:[address] Patient Name: TROY HAYWOOD Encounter No: [id number] : 1955 Primary Insurance: [place]ICAID [place] Anticipated DC Date: 06-02-2019 Planned Disposition: Nursing Facility YUN Cert External Planned Provider: [facility], RETIREMENT CARE MEDICAID BED DCP follow-up note: CM FAXED REFERRAL UPDATE TO [facility] AT [phone]. CM WAITING ADMISSION DETERMINATION FROM [facility] FOR RETIREMENT CARE. Sandor Carrasquillo CASE MANAGEMENT Appended by Sandor Carrasquillo on 06/02/2019 16:50 DRY CLEANING COUNTER CLERK: CM RECEIVED CALL FROM LUIS OF [facility], , THEY RECEIVED THE UPDATE BY FAX AND WILL CONTACT FAMILY REGARDING FINANCIALS. LUIS REPORTS THEY ARE STILL WAITING ON NURSING TO ACCEPT FOR RETIREMENT CARE AND WILL ALSO NEED FINANCIAL CLEARANCE TO ENTER THE FACILITY. CM WAITING ADMISSION DETERMINATION FROM [facility] FOR RETIREMENT CARE. [facility] CONTACTING FAMILY TO ASSIST WITH FINANCIAL INFORMATION FOR [facility] [employer] [facility] CARE MEDICAID APPLICATION. ROSANNA Montaño DCP- Discharge Planning Updated by [id number]: Sandor Carrasquillo on 06/01/19 4:[address] Patient Name: TROY HAYWOOD Encounter No: [id number] : 1955 Primary Insurance: [place]ID [place] Anticipated DC Date: 06-02-2019 Planned Disposition: Nursing Facility [facility] Cert External Planned Provider: [facility], LONG TERM CARE MEDICAID BED DCP follow-up note: CM MET WITH PT AND DAUGHTER HOUSTON, WHO HAS MADE IT FROM [place]. UPDATE PROVIDED. CM CALLED [facility], SELLERS INFORMED CM THAT REFERRAL FROM AND [facility] WAS RECEIVED, STAFF IN MEETING TODAY AND THEY WILL FINISH ADMISSION REVIEW TOMORROW, 06-02-19. CM NOTIFIED PT AND DAUGHTER IN ROOM. CM WAITING ADMISSION DETERMINATION FROM [facility] FOR RETIREMENT CARE. Sandor Carrasquillo CASE MANAGEMENT DCP- Discharge Planning Updated by [id number]: Sandor Carrasquillo on 05/31/19 3:[address] Patient Name: TROY HAYWOOD Encounter No: [id number] : 1955 Primary Insurance: [place]ID [place] Anticipated DC Date: 06-01-2019 Planned Disposition: Nursing Facility [facility] Cert External Planned Provider: [facility] TERM CARE MEDICAID BED DCP follow-up note: AFTER SEVERAL VISITS WITH PT IN ROOM, PHONE CALLS WITH DAUGHTERS, [facility] AND [facility], PT DECIDED TO CONSENT TO 30 DAYS OF RETIREMENT CARE AT [facility] AFTER PT'S DACE, WITH AIDE OF [facility] WHO WILL CONSIDER PT FOR CARE. PT SIGNED CHOICE. CM FAXED REFERRAL INFORMATION TO [facility] AT [phone]. CM WAITING ADMISSION DETERMINATION FROM [facility] FOR RETIREMENT CARE. Sandor Carrasquillo, CASE MANAGEMENT DCP- Discharge Planning Updated by [id number]: Sandor Carrasquillo on 05/28/19 3:[address] Patient Name: TROY HAYWOOD Encounter No: [id number] : 1955 Primary Insurance: [place]ID [place] Anticipated DC Date: 06-02-2019 Planned Disposition: Home with Home Health External Planned Provider: [employer] [facility] DCP follow-up note: CM RECEIVED CALL FROM PT'S DAUGHTER, CHEPE, WHO VERIFIED THAT SHE WILL COME NEXT WEEK TO STAY WITH PT FOR TWO OR THREE WEEKS TO CARE FOR PT AT HOME. CHEPE WILL DISCUSS WITH HER MOTHER THAT SHE WILL HAVE TO BE ABLE TO STAND AND TRANSFER FOR CHEPE TO CARE FOR HER. CM REVIEWED THERAPY NOTES TO PRESENT. 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 PT HAS BEDSIDE COMMODE AND WHEELCHAIR AT HOME. CHEPE REPORTS NEED OF [facility] RESUMPTION. CHEPE WILL DISCUSS WITH PT AND TRY TO MOTIVATE HER TO MEET THERAPY GOALS PRIOR TO ARRIVAL ON NEXT FRIDAY OR FRIDAY. PT'S DAUGHTER PLANS TO TAKE PT HOME NEXT FRIDAY OR FRIDAY, THEY WILL NEED [facility] RES[facility], DENIES FURTHER NEEDS. CM TO FOLLOW AND ASSIST NEEDED. Sandor Carrasquillo, CASE MANAGEMENT DCP- Discharge Planning Updated by [id number]: Sandor Carrasquillo on 05/28/19 2:[address] Patient Name: TROY HAYWOOD Encounter No: [id number] : 1955 Primary Insurance: MEDICAID [place] Anticipated DC Date: Planned Disposition: Nursing Facility [facility] Cert External Planned Provider: TO BE DETERMINED DCP follow-up note: CM SPOKE TO [facility], SHE INFORMED CM THAT UPDATES HAVE BEEN RECEIVED, PT IS NOT MAKING ENOUGH PROGRESS WITH THERAPY THAT THEY DO NOT BELIEVE THAT PT WILL BE ABLE TO ACHIEVE THERAPY GOALS IN THE REMAINING 10 DAYS OF ACUTE DAYS THAT PT HAS REMAINING. CM NOTIFIED PT AND PROVIDED PT WITH NURSING FACILITY LISTING OF ALL AVAILABLE FACILITIES WITHIN [address] [place]. PT WILL SPEAK TO HER DAUGHTER AND NOTIFY CM OF HER CHOICES. CM CALLED [facility], , TWICE; AUTOMATED MESSAGE INFORMED CM THAT THE NUMBER WAS RESTRICTED OR CURRENTLY UNAVAILABLE. CM WAITING PT AND FAMILY TO PROVIDE NURSING FACILITY CHOICES FOR RETIREMENT CARE. Sandor Carrasquillo, CASE MANAGEMENT Appended by Sandor Carrasquillo on 05/28/2019 12:07 CDT: CM SPOKE TO PT IN ROOM, NOTIFIED PT THAT CM TRIED AND COULD NOT REACH DAUGHTER HOUSTON VIA PHONE. PT REPORTS SHE SPOKE TO HOUSTON WHO TOLD HER THAT [facility] WILL NOT TAKE HER DUE TO WEIGHT; PT'S DAUGHTER TOLD PT THAT [facility] PROBAB[facility] WILL NOT TAKE HER. PT REPORTS THERE IS ONE IN [place] THAT MIGHT CONSIDER HER. CM OFFERED CHOICE FORM FOR SIGNATURE SO THAT CM COULD SEND REFERRALS AND BEGIN CALLING TO FIND PLACEMENT. PT REFUSED AND STATES SHE HAS A DAUGHTER, CHEPE, WHO IS A REGISTERED NURSE, THAT MAY BE COMING TO TAKE CARE OF PT AT HOME. PT'S DAUGHTER HOUSTON IS CALLING DAUGHTER CHEPE TO DISCUSS THE OPTION. PT STATES SHE WILL LET CM KNOW THE OUTCOME AND IF SHE WANTS CM TO EXPLORE [facility] CARE FOR HER. CM WAITING PT AND FAMILY TO PROVIDE NURSING FACILITY CHOICES AND FOR PT TO SIGN CONSENT FOR [facility] PLACEMENT. PT IS NOW HOPEFUL THAT HER DAUGHTER WHO IS A REGISTERED NURSE WILL COME AND STAY WITH PT AND TAKE CARE OF HER AT HOME. SANDOR CARRASQUILLO, CASE MANAGEMENT Appended by Sandor Carrasquillo on 05/28/2019 14:27 CDT: CM RECEIVED MESSAGE THAT PT WANTS TO SEE CM. CM MET WITH PT IN ROOM WHO INFORMED CM THAT SHE HIS NOT GOING TO A [facility], THAT HER DAUGHTER, CHEPE, WHO IS A NURSE, WILL BE HERE NEXT FRIDAY TO TAKE HER HOME AND WILL TAKE CARE OF PT AT HOME. PT ASKED FOR [facility]TION. CM DISCUSSED POSSIBLE NEED OF [facility]AH LIFT AND ASKED ABOUT ADDITIONAL EQUIPMENT. PT THINKS BY NEXT WEEK, SHE WILL BE ABLE TO TRANSFER WITHOUT AIDE OF LIFT DEVICE. CM NOTIFIED DR. FREEDMAN WHO INFORMED CM THAT HE WILL ORDER BLOOD GAS ON FRIDAY TO DETERMINE RESPIRATORY DISCHARGE NEEDS AT THAT TIME. PT HAS SIGNED RIGHT OF CHOICE FOR [facility] ALREADY. PT REPORTS HER DAUGHTER, WHO IS A REGISTERED NURSE, WILL BE HERE FRIDAY OF NEXT WEEK TO TAKE CARE OF PT AT HOME. PT PLANS TO DISCHARGE HOME WITH FAMILY AND [facility]. CM TO FOLLOW AND ASSIST NEEDED. ROSANNA MONTAÑO DCP- Discharge Planning Updated by [id number]: Sandor Carrasquillo on 05/28/19 7:[address] Patient Name: TROY HAYWOOD Encounter No: [id number] : 1955 Primary Insurance: MEDICAID [facility] DC Date: Planned Disposition: Inpatient Rehab External Planned Provider: [facility] DCP follow-up note: CM FAXED REFERRAL UPDATE TO [facility] AT [phone]. CM WAITING ADMISSION DETERMINATION FROM [facility] IN [place]. ROSANNA Montaño DCP- Discharge Planning Updated by [id number]: Sandor Carrasquillo on 05/27/19 2:[address] Patient Name: TROY HAYWOOD Encounter No: [id number] : 1955 Primary Insurance: [place]ICAID [place] Anticipated DC Date: Planned Disposition: Inpatient Rehab External Planned Provider: [facility] DCP follow-up note: CM FAXED REFERRAL UPDATE TO [facility] AT [phone]. CM WAITING ADMISSION DETERMINATION FROM [facility] IN [place]. Sandor Carrasquillo, CASE MANAGEMENT Appended by Sandor Carrasquillo on 05/27/2019 14:41 CDT: CM CALLED [facility], , LEFT MESSAGE ASKING FOR UPDATE ON REFERRAL AND TO KNOW IF THEY ARE STILL CONSIDERING PT FOR REHAB. CM WAITING ADMISSION DETERMINATION FROM [facility] IN [place]. Sandor Carrasquillo, CASE MANAGEMENT DCP- Discharge Planning Updated by [id number]: Jesica Cartagena on 05/26/19 4:[address] Patient requested Trapeze bar to allow her to sit up in hospital bed. CM spoke Dr. Lawson and obtained approval for Trapeze bar. CM notified Radha in materials management of request for Trapeze bar. CM completed and gave Radha the order form for the Trapeze bar. Trapeze bar will be delivered. CM notified patient's CM, Christiano Carrasquillo, on status of Trapeze bar. DCP- Discharge Planning Updated by [id number]: Sandor Carrasquillo on 05/26/19 3:[address] Patient Name: TROY HAYWOOD Encounter No: [id number] : 1955 Primary Insurance: MEDICAID [place] Anticipated DC Date: Planned Disposition: Inpatient Rehab External Planned Provider: [facility] DCP follow-up note: CM SPOKE TO PT'S DAUGHTER VIA PHONE, HOUSTON SALGADO, . CM OBTAINED PERMISSION FROM PT TO DISCUSS CARE, TREATMENT AND DISCHARGE PLANNING WITH HOUSTON. HOUSTON INFORMED CM THAT PT WAS IN REHAB AT [facility] LAST YEAR AND THEY WANT REFERRED TO [facility] AGAIN. CM DISCUSSED PT'S VERY LOW LEVEL OF PHYSICAL CONDITIONING. PT'S DAUGHTER FEELS THAT PT CAN PARTICIPATE WITH THERAPY WITH GOAL TO RETURN HOME PREVIOUS WITH ABILITY TO TRANSFER TO ELECTRIC SCOOTER AND HOME HEALTH FOR CONTINUED HOME SERVICES. HOUSTON VERIFIED THAT PT HAS NO ADULTS ABLE TO LIVE WITH AND ASSIST PT AT HOME AT THIS TIME. HOUSTON ASKED ABOUT [facility] RE[facility] SERVICES THAT MAY TAKE PT AT NO COSTS DUE TO INCOME. CM INFORMED HOUSTON THAT CM WAS NOT FAMILIAR WITH ANY OF THESE PROGRAMS. [facility]ON WOULD LIKE TO HAVE PT EVALUATED FOR REHAB AT [facility] PRIOR TO ANY CONSIDERATION OF [facility] PLACEMENT PT WILL NOT GET THERAPY THERE. CM SPOKE TO PT WHO IS IN AGREEMENT WITH PLAN. CM CALLED [facility], , NOTIFIED OF REHAB REQUEST; PT HAS ONLY 24 ACUTE DAYS THAT STARTED IN JANUARY, IT DEPENDS ON HOW MANY HAVE BEEN ALREADY USED, PT'S CONDITION AND NEEDS THAT WOULD HAVE TO BE MET IN THE REMAINING DAYS THAT PT HAS TO USE FOR REHAB . CM FAXED REFERRALINFORMATION TO [facility] WITH CURRENT MAR AT [phone]. CM WAITING ADMISSION DETERMINATION FROM [facility] IN [place]. Sandor Carrasquillo, CASE MANAGEMENT Appended by Sandor Carrasquillo on 05/26/2019 15:24 CDT: CM MET WITH PT, GRANDDAUGHTER, DAUGHTER HOUSTON VIA PHONE WITH CM RN OPERATING ROOM, UNIT NURSE TODDLER NANNY, REPIRATORY THERAPIST AND RN OPERATING ROOM OF THERAPY SERVICES REGARDING DISCHARGE PLANNING. CONCERNS OF PT'S PLAN TO GO HOME IN CURRENT CONDITION DISCUSSED. PT AND DAUGHTER HAVE ALREADY ASKED FOR REFERRAL TO [facility], CM HAS SENT IT AND WAITING DETERMINATION. PLAN "B" WAS AGREED TO BE NURSING FACILITY IF NOT ACCEPTED TO [facility] AND THAT CM WOULD ATTEMPT TO FIND ONE THAT MAY DONATE REHAB SERVICES. PT'S DAUGHTER IS RESEARCHING [employer]DING FROM [facility] FOR REHAB SERVICES. CM WAITING ADMISSION DETERMINATION FROM [facility] IN [place]. Sandor Carrasquillo, CASE MANAGEMENT DCP- Discharge Planning Updated by [id number]: Sandor Carrasquillo on 05/25/19 2:[address] Patient Name: TROY HAYWOOD Encounter No: [id number] : 1955 Primary Insurance: MEDICAID [facility] Date: Planned Disposition: Home HEALTH External Planned Provider: [facility] ON [place], VISITING NURSES OF [facility] follow-up note: CM MET WITH PT IN ROOM TO DISCUSS DISCHARGE NEEDS AND PLANNING. CM DISCUSSED AVAILABILITY OF HOME HEALTH, REHAB SERVICES AND MEDICAL EQUIPMENT. PT REFUSES HALFWAY FACILITY PLACEMENT. PT STATES PLAN TO RETURN HOME. 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 PT WAS ABLE TO AMBULATE SMALL DISTANCES AND TRANSFER SELF FROM BED TO ELECTRIC WHEELCHAIR AT HOME. PT THINKS SHE IS GOING TO BE ABLE TO TRANSFER SELF TO GO BACK HOME. PT WANTS HOME HEALTH RESUMED TO GO HOME. CM EXPRESSED CONCERN OF PT'S CURRENT LEVEL OF FUNCTIONING AND RETURNING HOME. PT DENIES HAVING FRIENDS OR FAMILY TO ASSIST WITH HER CARE AT HOME BUT IS NOT GOING TO A [facility]. PT THINKS SHE WILL NEED AN AMBULANCE FOR TRANSPORT HOME HER ELECTRIC WHEELCHAIR IS THERE. CM EXPLAINED TO PT THAT SHE WILL NEED TO DEMONSTRATE WITH THERAPY THE ABILITY TO TRANSFER AND SIT IN CHAIR FOR DISCHARGE. PT STATED UNDRESTANDING. CHOICE FOR [facility] AGENCY ON [place] VISITING NURSES HOME HEALTH SIGNED. 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 PT REFUSED NURSING FACILITY PLACEMENT. PT WILL NEED TO DEMONSTRATE ABILITY TO TRANSFER AND SIT IN CHAIR FOR DISCHARGE SHE HAS ELECTRIC WHEELCHAIR AT HOME. CM TO ARRANGE HOME HEALTH RESUMPTION WITH [facility] AGENCY ON [place] VISITING NURSES AGENCY IN [place] FOR DISCHARGE HOME. CM TO CONTINUE TO FOLLOW AND ASSIST NEEDED. Sandor Carrasquillo, CASE MANAGEMENT DCP- Discharge Planning Updated by [id number]: Aleisha Monroe on 05/19/19 7:[address] Patient Name: TROY HAYWOOD Admission Status: ER Accout number: [id number] Admission Date: 05-14-2019 : 1955 Admission Diagnosis: Attending: FABIO PINEDA Current LOS: 5 Anticipated DC Date: Planned Disposition: Home or Self Care Primary Insurance: MEDICAID [place] Discharge Planning Comments: CM met with patient and daughter to complete initial dc planning assessment. Patient recently extubated earlier today. CM educated patient on the CM role and verbal consent given by patient to complete assessment. Patient lives at home with her two young grand-daughters where she is independent with her care. At discharge patient plans to return home and feels this is a safe discharge. CM discussed availability of home health, rehab services, and medical equipment. Patient has Home 02 and HH with unknown providers. CM will f/u with patient @ later date to see if she is able to give providers. Patient denied known discharge needs at this time. CM will continue to follow and will assist as needed with dc plans/needs. Medical Registrar: Aleisha Monroe DCPIA - Discharge Planning Initial Assessment Updated by [id number]: Sandor Carrasquillo on 05/28/19 9:36 am * How many steps to enter\\exit or inside your home? * PCP uncertain ? * Pharmacy [place] * Preadmission Environment Home with Family * ADLs Independent * Other Equipment HOME 02, WALKER, SCOOTER, BSC, SC * List name and contact numbers for known caregivers / representatives who currently or will assist patient after discharge: CHEPE SUN - DAUGHTER- [phone] HOUSTON SALGADO, DTR - [phone] * Verbal permission to speak to the caregivers and representatives has been obtained from the patient. Yes * Community resources currently utilized Home Health * Please name any agencies selected above. [facility] * Additional services required to return to the preadmission environment? No * Can the patient safely return to the preadmission environment? Yes * Has this patient been hospitalized within the prior 30 days at any hospital? No Coverage Notice Reviewer: [id number] Carrasquillo Notice Issued Date-Time: 05/25/2019 14:05 Notice Type: Patient Choice Letter Notice Delivered To: Patient Relationship to Patient: Supervisor Gear Repair Name: Delivery Method: HAND - Hand Delivered Marry Days: Prior Verbal Notification: Recipient Understood Notice: Yes Recipient Signature: Yes Med Rec Note Co-signed by Attending: Coverage Notice Comment: [facility]- VISITING NURSES [facility] ([facility]) Reviewer: [id number] Carrasquillo Notice Issued Date-Time: 05/31/2019 14:50 Notice Type: Patient Choice Letter Notice Delivered To: Patient Relationship to Patient: Supervisor Gear Repair Name: Delivery Method: HAND - Hand Delivered Marry Days: Prior Verbal Notification: Recipient Understood Notice: Yes Recipient Signature: Yes Med Rec Note Co-signed by Attending: Coverage Notice Comment: [facility] Last DP export: 06/03/19 8:03 a Patient Name: TROY HAYWOOD Page [id number] at 1203 All edits/amendments must be made on the electronic document DICTATION DATE: 06/04/19 1203 AIR BAG BUFFER: MISHEL 06/04/19 1203 RPT#: [id number] DC DATE: STATUS: ADM IN [facility] [address] [place] [address] END OF REPORT
--- NOTE | 2019-06-04 14:39 | NUR ---
I HAVE REVIEWED THIS PATIENT AND I CONCUR WITH THE SHIFT ASSESSMENT COMPLETED BY THE [employer] SALESPERSON TODAY THIS SHIFT
[2019-06-04 17:05] VITALS: BP 115/42
--- NOTE | 2019-06-04 17:43 | MORECARE ---
CASE MANAGEMENT DISCHARGE SUMMARY PATIENT: TROY HAYWOOD UNIT: [id number] ADM DATE: 05/14/19 AGE: 64 : 57 SEX: F ROOM/BED: D.2140 AUTHOR: DAYDAY,DOC PHYSICIAN: REFERRING PHYSICIAN: FABIO PINEDA MD DATE OF SERVICE: 06/04/19 Discharge Plan Patient Name: TROY HAYWOOD Facility: [facility]:[place] : 1955 Planned Disposition: Nursing Facility YUN Cert Anticipated Discharge Date: 06/02/19 Discharge Date: Expected LOS: 19 Initial Reviewer: [id number] Initial Review Date: 05/19/2019 Generated: 06/04/19 6:42 pm Comments DCP- Discharge Planning Updated by [id number]: Sandor Carrasquillo on 06/04/19 4:[address] Patient Name: TROY HAYWOOD Encounter No: [id number] : 1955 Primary Insurance: [place]ID [place] Anticipated DC Date: 06-02-2019 Planned Disposition: Nursing Facility YUN Cert External Planned Provider: TO BE DETERMINED DCP follow-up note: CM SPOKE TO PT AND DAUGHTER CHEPE, IN ROOM. PT IS AND FOR PAST 10 YEARS, BUT NOT LEGALLY. THEY CANNOT QUALIFY FOR MEDICAID FOR NURSING HOME CARE DUE TO NOT HAVING SPOUSE FINANICAL INFORMATION. PT AND DAUGHTER BOTH STATE THAT THEY DO NOT WANT TO PUT PT INTO STOCK BROKER SUPERVISOR DETENTION CARE WHERE SHE WILL JUST LAY IN THE BED. THEY DO NOT WANT FURTHER DETENTION REFERRALS FAXED OUT. CM DISCUSSED THAT PT IS STABLE FOR DISCHARGE MEDICALLY. PT'S DAUGHTER REPORTS PT IS NOT HAVING BOWEL MOVEMENTS AND THAT THE FECES COMING OUT IS COMING AROUND AN IMPACTION AND NO ONE IS ADDRESSING THIS. CM NOTIFIED TOBY THOMAS WHO PROVIDED ORDERS FOR MEDICATION TO TREAT CONDITION. BEDSIDE NURSE NOTIFIED. PT'S DAUGHTER PROVIDED CM WITH 77 PAGES AND ASKED CM TO FAX TO [facility] FOR FINANCIAL ASSISTANCE REGARDING REHAB SERVICES FOR PT. CM FAXED TO [facility] FINANCIAL ASSISTANCE PROGRAM AT [phone]. PT'S DAUGHTER ADVISED THAT IF APPROVED, PT WILL HAVE TO GO TO A [facility] FOR REHAB. PT WAS DECLINED NURSING HOME CARE PLACEMENT AT [facility]; PT AND FAMILY DECLINE TO HAVE FURTHER REFERRALS SENT OUT. FAMILY IS TRYING TO SECURE FINANCIAL ASSISTANCE FOR REHAB SERVICES THROUGH [facility]. CM TO CONTINUE TO FOLLOW AND ASSIST. ROSANNA Montaño MANAGEMENT DCP- Discharge Planning Updated by [id number]: Sandor Carrasquillo on 06/04/19 11:[address] Patient Name: TROY HAYWOOD Encounter No: [id number] : 1955 Primary Insurance: [place]ID [place] Anticipated DC Date: 06-02-2019 Planned Disposition: Nursing Facility YUN Cert External Planned Provider: WAITING FAMILY DECISION DCP follow-up note: CM RECEIVED CALL FROM ANNIE OF [facility] WHO ADVISED CM THAT PT HAS BEEN FIANCIALLY DENIED FOR PLACEMENT. CM SPOKE TO PT IN ROOM WHO ADVISED THAT SHE UNDERSTOOD THEY WERE JUST GOING TO LEAVE HER LAYING IN BED FOR A MONTH AND NOT GIVE HER ANY REHAB SERVICES. CM EXPLAINED THAT MEDICAID DOES NOT PAY FOR REHAB SERVICES, ONLY NURSING HOME CARE AND PT WOULD RECEIVE WHAT THEY CALL "RESTORATIVE CARE" FROM STAFF AT ANY DETENTION, NOT THERAPY SERVICES. PT STATES SHE IS NOW ABLE TO STAND UP WITH THERAPY HERE. CM EXPLAINED THAT PT IS GETTING 8 TO 16 MINUTES OF THERAPY PER DAY AND THAT ALTHOUGH CM WAS HAPPY WITH PROGRESSION, PT IS MEDICALLY STABLE TO LEAVE THE HOSPITAL AND THAT SHE WOULD RECEIVE MORE THERAPY AT HOME WITH HOME HEALTH THAN IN THIS ACUTE HOSPITAL SETTING. PT STATES SHE IS NOT SURE WHAT HAPPENED, THAT CHEPE IS TAKING CARE OF THIS FOR HER AND THAT CHEPE WILL BE TO THE HOSPITAL IN A LITTLE WHILE TO SPEAK TO CM; PT BELIVES THAT CHEPE IS AGAIN WORKING ON TRYING TO GET [facility] REHAB CARE THROUGH THE [employer] PROGRAM. PT HAS BEEN FINANCIALLY DECLINED FOR NURSING HOME CARE PLACEMENT BY [facility]. PT DEFERRING PLANNING TO HER DAUGHTER, CHEPE. CM WAITING FAMILY TO ARRIVE TO DISCUSS FURTHER DISCHARGE PLANNING. ROSANNA Montaño DCP- Discharge Planning Updated by [id number]: Sandor Carrasquillo on 06/03/19 7:[address] Patient Name: TROY HAYWOOD Encounter No: [id number] : 1955 Primary Insurance: [place]ID [place] Anticipated DC Date: 06-02-2019 Planned Disposition: Nursing Facility [facility] Cert External Planned Provider: [facility], NURSING HOME CARE MEDICAID BED DISCHARGE PLANNING NOTE: CM FAXED REFERRAL UPDATE TO [facility] AT [phone]. CM WAITING ADMISSION DET[facility]ATION [facility] FOR [facility]. WAITING FAMILY TO PROVIDE FINANCIAL INFORMATION FOR STOCK BROKER SUPERVISOR CARE MEDICAID APPLICATION TO FACILITY. Sandor Carrasquillo CASE MANAGEMENT DCP- Discharge Planning Updated by [id number]: Sandor Carrasquillo on 06/02/19 3:[address] Patient Name: TROY HAYWOOD Encounter No: [id number] : 1955 Primary Insurance: [place] Anticipated DC Date: 06-02-2019 Planned Disposition: Nursing Facility YUN Cert External Planned Provider: [facility], [facility] MEDICA[facility] BED DCP follow-up note: CM FAXED REFERRAL UPDATE TO [facility] AT [phone]. CM WAITING ADMISSION DETERMINATION FROM [facility] FOR STOCK BROKER SUPERVISOR CARE. Sandor Carrasquillo CASE MANAGEMENT Appended by Sandor Carrasquillo on 06/02/2019 16:50 SOCIOLOGY ADJUNCT INSTRUCTOR: CM RECEIVED CALL FROM LUIS OF [facility], , THEY RECEIVED THE UPDATE BY FAX AND WILL CONTACT FAMILY REGARDING FINANCIALS. LUIS REPORTS THEY ARE STILL WAITING ON NURSING TO ACCEPT FOR STOCK BROKER SUPERVISOR CARE AND WILL ALSO NEED FINANCIAL CLEARANCE TO ENTER THE FACILITY. CM WAITING ADMISSION DETERMINATION FROM [facility] FOR STOCK BROKER SUPERVISOR CARE. [facility] CONTACT[facility] FAMILY TO ASSIST WITH FINANCIAL INFORMATION FOR NURSING HOME CARE MEDICAID APPLICATION. ROSANNA Montaño DCP- Discharge Planning Updated by [id number]: Sandor Carrasquillo on 06/01/19 4:[address] Patient Name: TROY HAYWOOD Encounter No: [id number] : 1955 Primary Insurance: [place] Anticipated DC Date: 06-02-2019 Planned Disposition: Nursing Facility YUN Cert External Planned Provider: [facility], STOCK BROKER SUPERVISOR CARE MEDICAID BED DCP follow-up note: CM MET WITH PT AND DAUGHTER HOUSTON, WHO HAS MADE IT FROM [place]. UPDATE PROVIDED. CM CALLED [facility] DALE INFORMED CM THAT REFERRAL FROM AND [facility] WAS RECEIVED, STAFF IN MEETING TODAY AND THEY WILL FINISH ADMISSION REVIEW TOMORROW, 06-02-19. CM NOTIFIED PT AND DAUGHTER IN ROOM. CM WAITING ADMISSION DETERMINATION FROM [facility] FOR STOCK BROKER SUPERVISOR CARE. Sandor Carrasquillo CASE MANAGEMENT DCP- Discharge Planning Updated by [id number]: Sandor Carrasquillo on 05/31/19 3:[address] Patient Name: TROY HAYWOOD Encounter No: [id number] : 1955 Primary Insurance: [place] Anticipated DC Date: 06-01-2019 Planned Disposition: Nursing Facility YUN Cert External Planned Provider: [facility], NURSING HOME CARE MEDICAID BED DCP follow-up note: AFTER SEVERAL VISITS WITH PT IN ROOM, PHONE CALLS WITH DAUGHTERS, [facility] AND [facility], PT DECIDED TO CONSENT TO 30 DAYS OF STOCK BROKER SUPERVISOR CARE AT [facility] AFTER PT'S DAUGTHERS, WITH AIDE OF [facility], LOCATED [facility] WHO WILL CONSIDER PT FOR CARE. PT SIGNED CHOICE. CM FAXED REFERRAL INFORMATION TO [facility] AT [phone]. CM WAITING ADMISSION DETERMINATION FROM [facility] FOR STOCK BROKER SUPERVISOR CARE. Sandor Carrasquillo CASE DEVAUGHN DCP- Discharge Planning Updated by [id number]: Sandor Carrasquillo on 05/28/19 3:[address] Patient Name: TROY HAYWOOD Encounter No: [id number] : 1955 Primary Insurance: [place]ID [place] Anticipated DC Date: 06-02-2019 Planned Disposition: Home with Home [facility] External Planned Provider: [facility] DCP follow-up note: CM RECEIVED CALL FROM PT'S DAUGHTER, CHPEE, WHO VERIFIED THAT SHE WILL COME NEXT WEEK TO STAY WITH PT FOR TWO OR THREE WEEKS TO CARE FOR PT AT HOME. CHEPE WILL DISCUSS WITH HER MOTHER THAT SHE WILL HAVE TO BE ABLE TO STAND AND TRANSFER FOR CHEPE TO CARE FOR HER. CM REVIEWED THERAPY NOTES TO PRESENT. 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 PT HAS BEDSIDE COMMODE AND WHEELCHAIR AT HOME. CHEPE REPORTS NEED OF [facility] RESUMPTION. CHEPE WILL DISCUSS WITH PT AND TRY TO MOTIVATE HER TO MEET THERAPY GOALS PRIOR TO ARRIVAL ON NEXT FRIDAY OR FRIDAY. PT'S DAUGHTER PLANS TO TAKE PT HOME NEXT FRIDAY OR FRIDAY, THEY WILL NEED [facility], DENIES FURTHER NEEDS. CM TO FOLLOW AND ASSIST NEEDED. Sandor Carrasquillo, CASE MANAGEMENT DCP- Discharge Planning Updated by [id number]: Sandor Carrasquillo on 05/28/19 2:[address] Patient Name: TROY HAYWOOD Encounter No: [id number] : 1955 Primary Insurance: [place] Anticipated DC Date: Planned Disposition: Nursing Facility YUN Cert External Planned Provider: TO BE DETERMINED DCP follow-up note: CM SPOKE TO [facility], SHE INFORMED CM THAT UPDATES HAVE BEEN RECEIVED, PT IS NOT MAKING ENOUGH PROGRESS WITH THERAPY THAT THEY DO NOT BELIEVE THAT PT WILL BE ABLE TO ACHIEVE THERAPY GOALS IN THE REMAINING 10 DAYS OF ACUTE DAYS THAT PT HAS REMAINING. CM NOTIFIED PT AND PROVIDED PT WITH NURSING FACILITY LISTING OF ALL AVAILABLE FACILITIES WITHIN [address] OF [place]. PT WILL SPEAK TO HER DAUGHTER AND NOTIFY CM OF HER CHOICES. CM CALLED [facility], , TWICE; AUTOMATED MESSAGE INFORMED CM THAT THE NUMBER WAS RESTRICTED OR CURRENTLY UNAVAILABLE. CM WAITING PT AND FAMILY TO PROVIDE NURSING FACILITY CHOICES FOR STOCK BROKER SUPERVISOR CARE. Sandor Carrasquillo, CASE MANAGEMENT Appended by Sandor Carrasquillo on 05/28/2019 12:07 CDT: CM SPOKE TO PT IN ROOM, NOTIFIED PT THAT CM TRIED AND COULD NOT REACH DAUGHTER HOUSTON VIA PHONE. PT REPORTS SHE SPOKE TO [facility] WHO TOLD HER THAT [facility] WILL NOT TAKE HER DUE TO WEIGHT; PT'S DAUGHTER TOLD PT THAT [facility] PROB[facility] WILL NOT TAKE HER. PT REPORTS THERE IS ONE IN [place] THAT MIGHT CONSIDER HER. CM OFFERED CHOICE FORM FOR SIGNATURE SO THAT CM COULD SEND REFERRALS AND BEGIN CALLING TO FIND PLACEMENT. PT REFUSED AND STATES SHE HAS A DAUGHTER, CHEPE, WHO IS A REGISTERED NURSE, THAT MAY BE COMING TO TAKE CARE OF PT AT HOME. PT'S DAUGHTER HOUSTON IS CALLING DAUGHTER CHEPE TO DISCUSS THE OPTION. PT STATES SHE WILL LET CM KNOW THE OUTCOME AND IF SHE WANTS CM TO EXPLORE DETENTION CARE FOR HER. CM WAITING PT AND FAMILY TO PROVIDE NURSING FACILITY CHOICES AND FOR PT TO SIGN CONSENT FOR DETENTION PLACEMENT. PT IS NOW HOPEFUL THAT HER DAUGHTER WHO IS A REGISTERED NURSE WILL COME AND STAY WITH PT AND TAKE CARE OF HER AT HOME. SANDOR CARRASQUILLO, CASE MANAGEMENT Appended by Sandor Carrasquillo on 05/28/2019 14:27 CDT: CM RECEIVED MESSAGE THAT PT WANTS TO SEE CM. CM MET WITH PT IN ROOM WHO INFORMED CM THAT SHE HIS NOT GOING TO A DETENTION, THAT HER DAUGHTER, CHEPE, WHO IS A NURSE, WILL BE HERE NEXT FRIDAY TO TAKE HER HOME AND WILL TAKE CARE OF PT AT HOME. PT ASKED FOR [facility]. CM DISCUSSED POSSIBLE NEED OF DEBORAH LIFT AND ASKED ABOUT ADDITIONAL EQUIPMENT. PT THINKS BY NEXT WEEK, SHE WILL BE ABLE TO TRANSFER WITHOUT AIDE OF LIFT DEVICE. CM NOTIFIED DR. FREEDMAN WHO INFORMED CM THAT HE WILL ORDER BLOOD GAS ON FRIDAY TO DETERMINE RESPIRATORY DISCHARGE NEEDS AT THAT TIME. PT HAS SIGNED RIGHT OF CHOICE FOR [facility] ALREADY. PT REPORTS HER DAUGHTER, WHO IS A REGISTERED NURSE, WILL BE HERE FRIDAY OF NEXT WEEK TO TAKE CARE OF PT AT HOME. PT PLANS TO DISCHARGE HOME WITH FAMILY AND [facility]. CM TO FOLLOW AND ASSIST NEEDED. ROSANNA MONTAÑO DCP- Discharge Planning Updated by [id number]: Sandor Carrasquillo on 05/28/19 7:[address] Patient Name: TROY HAYWOOD Encounter No: [id number] : 1955 Primary Insurance: [place]ID [place] Anticipated DC Date: Planned Disposition: Inpatient Rehab External Planned Provider: [facility] DCP follow-up note: CM FAXED REFERRAL UPDATE TO [facility] AT [phone]. CM WAITING ADMISSION DETERMINATION FROM [facility] IN [place]. ROSANNA Montaño DCP- Discharge Planning Updated by [id number]: Sandor Carrasquillo on 05/27/19 2:[address] Patient Name: TROY HAYWOOD Encounter No: [id number] : 1955 Primary Insurance: [place]ID [place] Anticipated DC Date: Planned Disposition: Inpatient Rehab External Planned Provider: [facility] DCP follow-up note: CM FAXED REFERRAL UPDATE TO [facility] AT [phone]. CM WAITING ADMISSION DETERMINATION FROM [facility] IN [place]. Sandor Carrasquillo CASE MANAGEMENT Appended by Sandor Carrasquillo on 05/27/2019 14:41 CDT: CM CALLED [facility], , LEFT MESSAGE ASKING FOR UPDATE ON REFERRAL AND TO KNOW IF THEY ARE STILL CONSIDERING PT FOR REHAB. CM WAITING ADMISSION DETERMINATION FROM [facility] IN [place]. Sandor Carrasquillo, CASE MANAGEMENT DCP- Discharge Planning Updated by [id number]: Jesica Cartagena on 05/26/19 4:[address] Patient requested Trapeze bar to allow her to sit up in hospital bed. CM spoke Dr. Lawson and obtained approval for Trapeze bar. CM notified Radha in materials management of request for Trapeze bar. CM completed and gave Radha the order form for the Trapeze bar. Trapeze bar will be delivered. CM notified patient's CM, Christiano Carrasquillo, on status of Trapeze bar. DCP- Discharge Planning Updated by [id number]: Sandor Carrasquillo on 05/26/19 3:[address] Patient Name: TROY HAYWOOD Encounter No: [id number] : 1955 Primary Insurance: MEDICAID [facility] DC Date: Planned Disposition: Inpatient Rehab External Planned Provider: [facility] DCP follow-up note: CM SPOKE TO PT'S DAUGHTER VIA PHONE, HOUSTON NAOMI, . CM OBTAINED PERMISSION FROM PT TO DISCUSS CARE, TREATMENT AND DISCHARGE PLANNING WITH HOUSTON. HOUSTON INFORMED CM THAT PT WAS IN REHAB AT [facility] LAST YEAR AND THEY WANT REFERRED TO [facility] AGAIN. CM DISCUSSED PT'S VERY LOW LEVEL OF PHYSICAL CONDITIONING. PT'S DAUGHTER FEELS THAT PT CAN PARTICIPATE WITH THERAPY WITH GOAL TO RETURN HOME PREVIOUS WITH ABILITY TO TRANSFER TO ELECTRIC SCOOTER AND HOME HEALTH FOR CONTINUED HOME SERVICES. HOUSTON VERIFIED THAT PT HAS NO ADULTS ABLE TO LIVE WITH AND ASSIST PT AT HOME AT THIS TIME. HOUSTON ASKED ABOUT [facility] REHAB SERVICES THAT MAY TAKE PT AT NO COSTS DUE TO INCOME. CM INFORMED HOUSTON THAT CM WAS NOT FAMILIAR WITH ANY OF THESE PROGRAMS. HOUSTON WOULD LIKE TO HAVE PT EVALUATED FOR REHAB AT [facility] PRIOR TO ANY CONSIDERATION OF DETENTION PLACEMENT PT WILL NOT GET THERAPY THERE. CM SPOKE TO PT WHO IS IN AGREEMENT WITH PLAN. CM CALLED [facility], , NOTIFIED OF REHAB REQUEST; PT HAS ONLY 24 ACUTE DAYS THAT STARTED IN JANUARY, IT DEPENDS ON HOW MANY HAVE BEEN ALREADY USED, PT'S CONDITION AND NEEDS THAT WOULD HAVE TO BE MET IN THE REMAINING DAYS THAT PT HAS TO USE FOR REHAB . CM FAXED REFERRALINFORMATION TO [facility] WITH CURRENT MAR AT [phone]. CM WAITING ADMISSION DETERMINATION FROM [facility] IN [place]. Sandor Carrasquillo, CASE MANAGEMENT Appended by Sandor Carrasquillo on 05/26/2019 15:24 CDT: CM MET WITH PT, GRANDDAUGHTER, DAUGHTER HOUSTON VIA PHONE WITH CM CUTTER BRAKE LINING, UNIT NURSE ENVELOPE CUTTER, REPIRATORY THERAPIST AND CUTTER BRAKE LINING OF THERAPY SERVICES REGARDING DISCHARGE PLANNING. CONCERNS OF PT'S PLAN TO GO HOME IN CURRENT CONDITION DISCUSSED. PT AND DAUGHTER HAVE ALREADY ASKED FOR REFERRAL TO [facility] REHAB, CM HAS SENT IT AND WAITING DETERMINATION. PLAN "B" WAS AGREED TO BE NURSING FACILITY IF NOT ACCEPTED TO [facility] AND THAT CM WOULD ATTEMPT TO FIND ONE THAT MAY DONATE REHAB SERVICES. PT'S DAUGHTER IS RESEARCHING [employer] FROM [facility] FOR REHAB SERVICES. CM WAITING ADMISSION DETERMINATION FROM [facility] IN [place]. Sandor Carrasquillo, CASE MANAGEMENT DCP- Discharge Planning Updated by [id number]: Sandor Carrasquillo on 05/25/19 2:[address] Patient Name: TROY HAYWOOD Encounter No: [id number] : 1955 Primary Insurance: MEDICAID [facility] Date: Planned Disposition: Home HEALTH External Planned Provider: [facility] ON [place], VISITING NURSES [facility] follow-up note: CM MET WITH PT IN ROOM TO DISCUSS DISCHARGE NEEDS AND PLANNING. CM DISCUSSED AVAILABILITY OF HOME HEALTH, REHAB SERVICES AND MEDICAL EQUIPMENT. PT REFUSES USP FACILITY PLACEMENT. PT STATES PLAN TO RETURN HOME. 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 PT WAS ABLE TO AMBULATE SMALL DISTANCES AND TRANSFER SELF FROM BED TO ELECTRIC WHEELCHAIR AT HOME. PT THINKS SHE IS GOING TO BE ABLE TO TRANSFER SELF TO GO BACK HOME. PT WANTS HOME HEALTH RESUMED TO GO HOME. CM EXPRESSED CONCERN OF PT'S CURRENT LEVEL OF FUNCTIONING AND RETURNING HOME. PT DENIES HAVING FRIENDS OR FAMILY TO ASSIST WITH HER CARE AT HOME BUT IS NOT GOING TO A DETENTION. PT THINKS SHE WILL NEED AN AMBULANCE FOR TRANSPORT HOME HER ELECTRIC WHEELCHAIR IS THERE. CM EXPLAINED TO PT THAT SHE WILL NEED TO DEMONSTRATE WITH THERAPY THE ABILITY TO TRANSFER AND SIT IN CHAIR FOR DISCHARGE. PT STATED UNDRESTANDING. CHOICE FOR [facility] ON [facility] VISITING NURSES HOME HEALTH SIGNED. 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 PT REFUSED NURSING FACILITY PLACEMENT. PT WILL NEED TO DEMONSTRATE ABILITY TO TRANSFER AND SIT IN CHAIR FOR DISCHARGE SHE HAS ELECTRIC WHEELCHAIR AT HOME. CM TO ARRANGE HOME HEALTH RESUMPTION WITH [facility] VISIT[facility] NURSES AGENCY IN [place] FOR DISCHARGE HOME. CM TO CONTINUE TO FOLLOW AND ASSIST NEEDED. Sandor Carrasquillo, CASE MANAGEMENT DCP- Discharge Planning Updated by [id number]: Aleisha Monroe on 05/19/19 7:[address] Patient Name: TROY HAYWOOD Admission Status: ER Accout number: [id number] Admission Date: 05-14-2019 : 1955 Admission Diagnosis: Attending: FABIO PINEDA Current LOS: 5 Anticipated DC Date: Planned Disposition: Home or Self Care Primary Insurance: MEDICAID [place] Discharge Planning Comments: CM met with patient and daughter to complete initial dc planning assessment. Patient recently extubated earlier today. CM educated patient on the CM role and verbal consent given by patient to complete assessment. Patient lives at home with her two young grand-daughters where she is independent with her care. At discharge patient plans to return home and feels this is a safe discharge. CM discussed availability of home health, rehab services, and medical equipment. Patient has Home 02 and HH with unknown providers. CM will f/u with patient @ later date to see if she is able to give providers. Patient denied known discharge needs at this time. CM will continue to follow and will assist as needed with dc plans/needs. Wood Boatbuilder Apprentice: Aleisha Monroe DCPIA - Discharge Planning Initial Assessment Updated by [id number]: Sandor Carrasquillo on 05/28/19 9:36 am * How many steps to enter\\exit or inside your home? * PCP uncertain ? * Pharmacy [facility] * Preadmission Environment Home with Family * ADLs Independent * Other Equipment HOME 02, WALKER, SCOOTER, BSC, SC * List name and contact numbers for known caregivers / representatives who currently or will assist patient after discharge: CHEPE SUN - DAUGHTER- [phone] HOUSTON SALGADO, DTR - [phone] * Verbal permission to speak to the caregivers and representatives has been obtained from the patient. Yes * Community resources currently utilized Home Health * Please name any agencies selected above. [facility] * Additional services required to return to the preadmission environment? No * Can the patient safely return to the preadmission environment? Yes * Has this patient been hospitalized within the prior 30 days at any hospital? No Coverage Notice Reviewer: [id number] Carrasquillo Notice Issued Date-Time: 05/25/2019 14:05 Notice Type: Patient Choice Letter Notice Delivered To: Patient Relationship to Patient: White Work Cleaner Name: Delivery Method: HAND - Hand Delivered Marry Days: Prior Verbal Notification: Recipient Understood Notice: Yes Recipient Signature: Yes Med Rec Note Co-signed by Attending: Coverage Notice Comment: [facility]- VISITING NURSES [facility] ([facility]) Reviewer: [id number] Josef Carrasquillo Notice Issued Date-Time: 05/31/2019 14:50 Notice Type: Patient Choice Letter Notice Delivered To: Patient Relationship to Patient: White Work Cleaner Name: Delivery Method: HAND - Hand Delivered Marry Days: Prior Verbal Notification: Recipient Understood Notice: Yes Recipient Signature: Yes Med Rec Note Co-signed by Attending: Coverage Notice Comment: [facility] Last DP export: 06/04/19 11:03 a Patient Name: TROY HAYWOOD Page [id number] at 1743 All edits/amendments must be made on the electronic document DICTATION DATE: 06/04/191741 HAT LINING BLOCKER: MISHEL 06/04/191741 RPT#: [id number] DC DATE: STATUS: ADM IN [facility] [address] [place] [address] END OF REPORT
--- NOTE | 2019-06-04 19:18 | NUR ---
BEDSIDE REPORT RECEIVED FROM DAY SHIFT, PT CARE ASSUMED. INTRODUCED SELF AND WROTE NAME ON BOARD. PT LYING IN BED WATCHING TV AND VISITING WITH HER DAUGHTER, HEATH4. DENIES PAIN OR ANY OTHER NEEDS AT THIS TIME. BED IN LOWEST POSITION, SR X3, CALL LIGHT WITHIN REACH. WILL CONTINUE TO MONITOR.
--- NOTE | 2019-06-04 19:50 | NUR ---
REPORT RECEIVED FROM CHANDU CASTILLO RN, FROM DIALYSIS. PT READY FOR TRANSFER BACK TO UNIT.
[2019-06-04 20:15] VITALS: BP 107/49
[2019-06-05 00:29] VITALS: BP 95/46
[2019-06-05 04:15] VITALS: BP 140/65
[2019-06-05 08:19] VITALS: BP 97/41
[2019-06-05 11:43] VITALS: BP 123/48
--- NOTE | 2019-06-05 14:59 | NUR ---
MEDICATED WITH APAP 650 MG LIQUID D/T C/O PAIN RATING 7/10 ON PAIN SCALE. FAMILY AND C/L IN REACH AT BEDSIDE.
[2019-06-05 16:00] VITALS: BP 117/47
--- NOTE | 2019-06-05 17:07 | NUR ---
I have reviewed this patient and I concur with the Shift Assessment completed by the Licensed Practical Nurse today this shift.
--- NOTE | 2019-06-05 18:50 | NUR ---
BEDSIDE REPORT RECEIVED FROM DAY SHIFT, PT CARE ASSUMED. WROTE NAME ON BOARD, PT LYING IN BED WITH EYES CLOSED, RR EVEN AND NONLABORED, NO S/S OF DISTRESS, AROUSES EASILY TO VOICE. REPORTS BACK PAIN OF 7, ON A SCALE OF 0-10. DENIES ANY OTHER NEEDS AT THIS TIME. BED IN LOWEST POSITION, SR X2, CALL LIGHT WITHIN REACH. WILL CONTINUE TO MONITOR.
[2019-06-05 20:33] VITALS: BP 147/48
[2019-06-06 00:35] VITALS: BP 131/55
--- NOTE | 2019-06-06 02:12 | NUR ---
PT LYING IN BED WITH EYES CLOSED, RR EVEN AND NONLABORED, NO S/S OF DISTRESS, AROUSES EASILY TO VOICE. DENIES ANY NEEDS AT THIS TIME. BED IN LOWEST POSITION, SR X2, CALL LIGHT WITHIN REACH. WILL CONTINUE TO MONITOR.
[2019-06-06 04:41] VITALS: BP 109/55
--- NOTE | 2019-06-06 08:00 | NUR ---
PT AWAKE AND ORIENTED, READJUSTED IN BED. NO COMPLAINTS/CONCENRS OR QUESTIONS AT THIS TIME. NO FAMILY PRESENT AT BEDSIDE. CL IN REACH, SRX2.
[2019-06-06 08:03] VITALS: BP 129/53
--- NOTE | 2019-06-06 10:31 | NUR ---
I have reviewed this patient and I concur with the Shift Assessment completed by the Licensed Practical Nurse today this shift.
[2019-06-06 12:02] VITALS: BP 121/48
[2019-06-06 16:36] VITALS: BP 112/55
--- NOTE | 2019-06-06 19:18 | NUR ---
PT ALERT AND OX4 DENIES NEEDS AT THIS TIME SAFTY CHECK DONE AND CALL LIGHT IS WITH PT BED IS INFLATED LOCKED AND LOW
[2019-06-06 20:00] VITALS: BP 100/44
--- NOTE | 2019-06-07 03:54 | NUR ---
I have reviewed this patient and I concur with the Shift Assessment completed by the Licensed Practical Nurse today this shift.
[2019-06-07 04:00] VITALS: BP 104/69; BP 120/46
--- NOTE | 2019-06-07 07:15 | NUR ---
ALERT AND ORIENTED. NO C/O PAIN. NO S/S OF ACUTE DISTRESS NOTED. PATIENT BEDFAST. ON BARIATRIC BED. AWAITING PLACEMENT TO SKILLED CARE FACILITY. ON 5L O2, NC. IJ TO RIGHT SIDE OF NECK, SL. SITE PATENT WITHOUT REDNESS OR SWELLING. BALLARD CATHETER PRESENT. SKIN REDNESS TO ABDOMINAL FOLDS AND BUTTOCKS. CALMOSEPTINE APPLIED TO AREAS. PATIENT DENIES ANY NEEDS AT THIS TIME. CALL LIGHT IN REACH. WILL CONTINUE TO MONITOR.
[2019-06-07 08:00] VITALS: BP 108/57
--- NOTE | 2019-06-07 09:19 | MORECARE ---
CASE MANAGEMENT DISCHARGE SUMMARY PATIENT: TROY HAYWOOD UNIT: [id number] ADM DATE: 05/14/19 AGE: 64 : 57 SEX: F ROOM/BED: D.2140 AUTHOR: DAYDAY,DOC PHYSICIAN: REFERRING PHYSICIAN: FABIO PINEDA MD DATE OF SERVICE: 06/07/19 Discharge Plan Patient Name: TROY HAYWOOD Facility: [facility]:[place] : 1955 Planned Disposition: Nursing Facility YUN Cert Anticipated Discharge Date: 06/02/19 Discharge Date: Expected LOS: 19 Initial Reviewer: [id number] Initial Review Date: 05/19/2019 Generated: 06/07/19 10:19 am Comments DCP- Discharge Planning Updated by [id number]: Sandor Carrasquillo on 06/04/19 4:[address] Patient Name: TROY HAYWOOD Encounter No: [id number] : 1955 Primary Insurance: [place]ID [place] Anticipated DC Date: 06-02-2019 Planned Disposition: Nursing Facility YUN Cert External Planned Provider: TO BE DETERMINED DCP follow-up note: CM SPOKE TO PT AND DAUGHTER CHEPE, IN ROOM. PT IS AND FOR PAST 10 YEARS, BUT NOT LEGALLY. 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 PT AND DAUGHTER BOTH STATE THAT THEY DO NOT WANT TO PUT PT INTO RESIDENTIAL RETIREMENT CARE WHERE SHE WILL JUST LAY IN THE BED. THEY DO NOT WANT FURTHER RETIREMENT REFERRALS FAXED OUT. CM DISCUSSED THAT PT IS STABLE FOR DISCHARGE MEDICALLY. PT'S DAUGHTER REPORTS PT IS NOT HAVING BOWEL MOVEMENTS AND THAT THE FECES COMING OUT IS COMING AROUND AN IMPACTION AND NO ONE IS ADDRESSING THIS. CM NOTIFIED TOBY THOMAS WHO PROVIDED ORDERS FOR MEDICATION TO TREAT CONDITION. BEDSIDE NURSE NOTIFIED. PT'S DAUGHTER PROVIDED CM WITH 77 PAGES AND ASKED CM TO FAX TO [facility] FOR FINANCIAL ASSISTANCE REGARDING REHAB SERVICES FOR PT. CM FAXED TO [facility] FINANCIAL ASSISTANCE PROGRAM AT [phone]. PT'S DAUGHTER ADVISED THAT IF APPROVED, PT WILL HAVE TO GO TO A [facility] FOR REHAB. PT WAS DECLINED RESIDENTIAL CARE PLACEMENT AT [facility]; PT AND FAMILY DECLINE TO HAVE FURTHER REFERRALS SENT OUT. FAMILY IS TRYING TO SECURE FINANCIAL ASSISTANCE FOR REHAB SERVICES THROUGH [facility]. CM TO CONTINUE TO FOLLOW AND ASSIST. ROSANNA Montaño MANAGEMENT DCP- Discharge Planning Updated by [id number]: Sandor Carrasquillo on 06/04/19 11:[address] Patient Name: TROY HAYWOOD Encounter No: [id number] : 1955 Primary Insurance: [place] Anticipated DC Date: 06-02-2019 Planned Disposition: Nursing Facility YUN Cert External Planned Provider: WAITING FAMILY DECISION DCP follow-up note: CM RECEIVED CALL FROM ANNIE OF [facility] WHO ADVISED CM THAT PT HAS BEEN FIANCIALLY DENIED FOR PLACEMENT. CM SPOKE TO PT IN ROOM WHO ADVISED THAT SHE UNDERSTOOD THEY WERE JUST GOING TO LEAVE HER LAYING IN BED FOR A MONTH AND NOT GIVE HER ANY REHAB SERVICES. CM EXPLAINED THAT MEDICAID DOES NOT PAY FOR REHAB SERVICES, ONLY GREASE MACHINE WORKER CARE AND PT WOULD RECEIVE WHAT THEY CALL "RESTORATIVE CARE" FROM STAFF AT ANY RETIREMENT, NOT THERAPY SERVICES. PT STATES SHE IS NOW ABLE TO STAND UP WITH THERAPY HERE. CM EXPLAINED THAT PT IS GETTING 8 TO 16 MINUTES OF THERAPY PER DAY AND THAT ALTHOUGH CM WAS HAPPY WITH PROGRESSION, PT IS MEDICALLY STABLE TO LEAVE THE HOSPITAL AND THAT SHE WOULD RECEIVE MORE THERAPY AT HOME WITH HOME HEALTH THAN IN THIS ACUTE HOSPITAL SETTING. PT STATES SHE IS NOT SURE WHAT HAPPENED, THAT CHEPE IS TAKING CARE OF THIS FOR HER AND THAT CHEPE WILL BE TO THE HOSPITAL IN A LITTLE WHILE TO SPEAK TO CM; PT BELIVES THAT CHEPE IS AGAIN WORKING ON TRYING TO GET [facility] REHAB CARE THROUGH THE [employer]. PT HAS BEEN FINANCIALLY DECLINED FOR GREASE MACHINE WORKER CARE PLACEMENT BY [facility]. PT DEFERRING PLANNING TO HER DAUGHTER, CHEPE. CM WAITING FAMILY TO ARRIVE TO DISCUSS FURTHER DISCHARGE PLANNING. ROSANNA Montaño DCP- Discharge Planning Updated by [id number]: Sandor Carrasquillo on 06/03/19 7:[address] Patient Name: TROY HAYWOOD Encounter No: [id number] : 1955 Primary Insurance: [place] Anticipated DC Date: 06-02-2019 Planned Disposition: Nursing Facility [facility] Cert External Planned Provider: [facility], RESIDENTIAL CARE MEDICAID BED DISCHARGE PLANNING NOTE: CM FAXED REFERRAL UPDATE TO [facility] AT [phone]. CM WAITING [facility] GREASE MACHINE WORKER CARE. WAITING FAMILY TO PROVIDE FINANCIAL INFORMATION FOR RESIDENTIAL CARE MEDICAID APPLICATION TO FACILITY. Sandor Carrasquillo CASE MANAGEMENT DCP- Discharge Planning Updated by [id number]: Sandor Carrasquillo on 06/02/19 3:[address] Patient Name: TROY HAWYOOD Encounter No: [id number] : 1955 Primary Insurance: [place] Anticipated DC Date: 06-02-2019 Planned Disposition: Nursing Facility YUN Cert External Planned Provider: [facility], GREASE MACHINE WORKER [facility] MEDICAID BED DCP follow-up note: CM FAXED REFERRAL UPDATE TO [facility] AT [phone]. CM WAITING ADMISSION DETERMINATION FROM [facility] FOR GREASE MACHINE WORKER CARE. Sandor Carrasquillo CASE MANAGEMENT Appended by Sandor Carrasquillo on 06/02/2019 16:50 CNC MECHANIC: CM RECEIVED CALL FROM LUIS OF [facility], , THEY RECEIVED THE UPDATE BY FAX AND WILL CONTACT FAMILY REGARDING FINANCIALS. LUIS REPORTS THEY ARE STILL WAITING ON NURSING TO ACCEPT FOR RESIDENTIAL CARE AND WILL ALSO NEED FINANCIAL CLEARANCE TO ENTER THE FACILITY. CM WAITING ADMISSION DETERMINATION FROM [facility] FOR [facility]IDENTIAL CARE[facility]TA[facility] FAMILY TO ASSIST WITH FINANCIAL INFORMATION FOR RESIDENTIAL CARE MEDICAID APPLICATION. ROSANNA Montaño DCP- Discharge Planning Updated by [id number]: Sandor Carrasquillo on 06/01/19 4:[address] Patient Name: TROY HAYWOOD Encounter No: [id number] : 1955 Primary Insurance: [place] Anticipated DC Date: 06-02-2019 Planned Disposition: Nursing Facility YUN Cert External Planned Provider: [facility], RESIDENTIAL CARE MEDICAID BED DCP follow-up note: CM MET WITH PT AND DAUGHTER HOUSTON, WHO HAS MADE IT FROM [place]. UPDATE PROVIDED. CM CALLED [facility] DALE INFORMED CM THAT REFERRAL FROM AND [facility] WAS RECEIVED, STAFF IN MEETING TODAY AND THEY WILL FINISH ADMISSION REVIEW TOMORROW, 06-02-19. CM NOTIFIED PT AND DAUGHTER IN ROOM. CM WAITING ADMISSION DETERMINATION FROM [facility] FOR GREASE MACHINE WORKER CARE. Sandor Carrasquillo CASE MANAGEMENT DCP- Discharge Planning Updated by [id number]: Sandor Carrasquillo on 05/31/19 3:[address] Patient Name: TROY HAYWOOD Encounter No: [id number] : 1955 Primary Insurance: [place] Anticipated DC Date: 06-01-2019 Planned Disposition: Nursing Facility YUN Cert External Planned Provider: [facility], GREASE MACHINE WORKER CARE MEDICAID BED DCP follow-up note: AFTER SEVERAL VISITS WITH PT IN ROOM, PHONE CALLS WITH DAUGHTERS, [facility], PT DECIDED TO CONSENT TO 30 DAYS OF GREASE MACHINE WORKER CARE AT [facility] AFTER PT'S DAUGTHERS, WITH AIDE OF [facility] WHO WILL CONSIDER PT FOR CARE. PT SIGNED CHOICE. CM FAXED REFERRAL INFORMATION TO [facility] AT [phone]. CM WAITING ADMISSION DETERMINATION FROM [facility] FOR RESIDENTIAL CARE. Sandor Carrasquillo CASE DEVAUGHN DCP- Discharge Planning Updated by [id number]: Sandor Carrasquillo on 05/28/19 3:[address] Patient Name: TROY HAYWOOD Encounter No: [id number] : 1955 Primary Insurance: [place] Anticipated DC Date: 06-02-2019 Planned Disposition: Home with Home [facility] External Planned Provider: [facility] DCP follow-up note: CM RECEIVED CALL FROM PT'S DAUGHTER, CHEPE, WHO VERIFIED THAT SHE WILL COME NEXT WEEK TO STAY WITH PT FOR TWO OR THREE WEEKS TO CARE FOR PT AT HOME. CHEPE WILL DISCUSS WITH HER MOTHER THAT SHE WILL HAVE TO BE ABLE TO STAND AND TRANSFER FOR CHEPE TO CARE FOR HER. CM REVIEWED THERAPY NOTES TO PRESENT. 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 PT HAS BEDSIDE COMMODE AND WHEELCHAIR AT HOME. CHEPE REPORTS NEED OF [employer] [facility] RESUMPTION. CHEPE WILL DISCUSS WITH PT AND TRY TO MOTIVATE HER TO MEET THERAPY GOALS PRIOR TO ARRIVAL ON NEXT FRIDAY OR FRIDAY. PT'S DAUGHTER PLANS TO TAKE PT HOME NEXT FRIDAY OR FRIDAY, THEY WILL NEED [facility] RES[facility]TION, DENIES FURTHER NEEDS. CM TO FOLLOW AND ASSIST NEEDED. Sandor Carrasquillo, CASE MANAGEMENT DCP- Discharge Planning Updated by [id number]: Sandor Carrasquillo on 05/28/19 2:[address] Patient Name: TROY HAYWOOD Encounter No: [id number] : 1955 Primary Insurance: [place] Anticipated DC Date: Planned Disposition: Nursing Facility YUN Cert External Planned Provider: TO BE DETERMINED DCP follow-up note: CM SPOKE TO [facility], SHE INFORMED CM THAT UPDATES HAVE BEEN RECEIVED, PT IS NOT MAKING ENOUGH PROGRESS WITH THERAPY THAT THEY DO NOT BELIEVE THAT PT WILL BE ABLE TO ACHIEVE THERAPY GOALS IN THE REMAINING 10 DAYS OF ACUTE DAYS THAT PT HAS REMAINING. CM NOTIFIED PT AND PROVIDED PT WITH NURSING FACILITY LISTING OF ALL AVAILABLE FACILITIES WITHIN [address] OF [place]. PT WILL SPEAK TO HER DAUGHTER AND NOTIFY CM OF HER CHOICES. CM CALLED [facility], , TWICE; AUTOMATED MESSAGE INFORMED CM THAT THE NUMBER WAS RESTRICTED OR CURRENTLY UNAVAILABLE. CM WAITING PT AND FAMILY TO PROVIDE NURSING FACILITY CHOICES FOR RESIDENTIAL CARE. Sandor Carrasquillo, CASE MANAGEMENT Appended by Sandor Carrasquillo on 05/28/2019 12:07 CDT: CM SPOKE TO PT IN ROOM, NOTIFIED PT THAT CM TRIED AND COULD NOT REACH DAUGHTER HOUSTON VIA PHONE. PT REPORTS SHE SPOKE TO [facility] WHO TOLD HER THAT [facility] WILL NOT TAKE HER DUE TO WEIGHT; PT'S DAUGHTER TOLD PT THAT [facility] HER. PT REPORTS THERE IS ONE IN [place] THAT MIGHT CONSIDER HER. CM OFFERED CHOICE FORM FOR SIGNATURE SO THAT CM COULD SEND REFERRALS AND BEGIN CALLING TO FIND PLACEMENT. PT REFUSED AND STATES SHE HAS A DAUGHTER, CHEPE, WHO IS A REGISTERED NURSE, THAT MAY BE COMING TO TAKE CARE OF PT AT HOME. PT'S DAUGHTER HOUSTON IS CALLING DAUGHTER CHEPE TO DISCUSS THE OPTION. PT STATES SHE WILL LET CM KNOW THE OUTCOME AND IF SHE WANTS CM TO EXPLORE RETIREMENT CARE FOR HER. CM WAITING PT AND FAMILY TO PROVIDE NURSING FACILITY CHOICES AND FOR PT TO SIGN CONSENT FOR RETIREMENT PLACEMENT. PT IS NOW HOPEFUL THAT HER DAUGHTER WHO IS A REGISTERED NURSE WILL COME AND STAY WITH PT AND TAKE CARE OF HER AT HOME. SANDOR CARRASQUILLO, CASE MANAGEMENT Appended by Sandor Carrasquillo on 05/28/2019 14:27 CDT: CM RECEIVED MESSAGE THAT PT WANTS TO SEE CM. CM MET WITH PT IN ROOM WHO INFORMED CM THAT SHE HIS NOT GOING TO A RETIREMENT, THAT HER DAUGHTER, CHEPE, WHO IS A NURSE, WILL BE HERE NEXT FRIDAY TO TAKE HER HOME AND WILL TAKE CARE OF PT AT HOME. PT ASKED FOR [facility] RESUMPTION. CM DISCUSSED POSSIBLE NEED OF DEBORAH LIFT AND ASKED ABOUT ADDITIONAL EQUIPMENT. PT THINKS BY NEXT WEEK, SHE WILL BE ABLE TO TRANSFER WITHOUT AIDE OF LIFT DEVICE. CM NOTIFIED DR. FREEDMAN WHO INFORMED CM THAT HE WILL ORDER BLOOD GAS ON FRIDAY TO DETERMINE RESPIRATORY DISCHARGE NEEDS AT THAT TIME. PT HAS SIGNED RIGHT OF CHOICE FOR [facility] ALREADY. PT REPORTS HER DAUGHTER, WHO IS A REGISTERED NURSE, WILL BE HERE FRIDAY OF NEXT WEEK TO TAKE CARE OF PT AT HOME. PT PLANS TO DISCHARGE HOME WITH FAMILY AND [facility]. CM TO FOLLOW AND ASSIST NEEDED. ROSANNA MONTAÑO DCP- Discharge Planning Updated by [id number]: Sandor Carrasquillo on 05/28/19 7:[address] Patient Name: TROY HAYWOOD Encounter No: [id number] : 1955 Primary Insurance: [place] Anticipated DC Date: Planned Disposition: Inpatient Rehab External Planned Provider: [facility] DCP follow-up note: CM FAXED REFERRAL UPDATE TO [facility] AT [phone]. CM WAITING ADMISSION DETERMINATION FROM [facility] IN [place]. ROSANNA Montaño DCP- Discharge Planning Updated by [id number]: Sandor Carrasquillo on 05/27/19 2:[address] Patient Name: TROY HAYWOOD Encounter No: [id number] : 1955 Primary Insurance: [place]ID [place] Anticipated DC Date: Planned Disposition: Inpatient Rehab External Planned Provider: [facility] DCP follow-up note: CM FAXED REFERRAL UPDATE TO [facility] AT [phone]. CM WAITING ADMISSION DETERMINATION FROM [facility] IN [place]. Sandor Carrasquillo CASE MANAGEMENT Appended by Sandor Carrasquillo on 05/27/2019 14:41 CDT: CM CALLED [facility], , LEFT MESSAGE ASKING FOR UPDATE ON REFERRAL AND TO KNOW IF THEY ARE STILL CONSIDERING PT FOR REHAB. CM WAITING ADMISSION DETERMINATION FROM [facility] IN [place]. Sandor Carraqsuillo, CASE MANAGEMENT DCP- Discharge Planning Updated by [id number]: Jesica Cartagena on 05/26/19 4:[address] Patient requested Trapeze bar to allow her to sit up in hospital bed. CM spoke Dr. Lawson and obtained approval for Trapeze bar. CM notified Radha in materials management of request for Trapeze bar. CM completed and gave Radha the order form for the Trapeze bar. Trapeze bar will be delivered. CM notified patient's CM, Christiano Carrasquillo, on status of Trapeze bar. DCP- Discharge Planning Updated by [email or web address]: Sandor Carrasquillo on 05/26/19 3:[address] Patient Name: TROY HAYWOOD Encounter No: [id number] : 1955 Primary Insurance: MEDICAID [facility] DC Date: Planned Disposition: Inpatient Rehab External Planned Provider: [facility] DCP follow-up note: CM SPOKE TO PT'S DAUGHTER VIA PHONE, HOUSTON NAOMI, . CM OBTAINED PERMISSION FROM PT TO DISCUSS CARE, TREATMENT AND DISCHARGE PLANNING WITH [facility]ON. HOUSOTN INFORMED CM THAT PT WAS IN REHAB AT [facility] LAST YEAR AND THEY WANT REFERRED TO [facility] AGAIN. CM DISCUSSED PT'S VERY LOW LEVEL OF PHYSICAL CONDITIONING. PT'S DAUGHTER FEELS THAT PT CAN PARTICIPATE WITH THERAPY WITH GOAL TO RETURN HOME PREVIOUS WITH ABILITY TO TRANSFER TO ELECTRIC SCOOTER AND HOME HEALTH FOR CONTINUED HOME SERVICES. HOUSTON VERIFIED THAT PT HAS NO ADULTS ABLE TO LIVE WITH AND ASSIST PT AT HOME AT THIS TIME. HOUSTON ASKED ABOUT [facility] THAT MAY TAKE PT AT NO COSTS DUE TO INCOME. CM INFORMED [facility]ON THAT CM WAS NOT FAMILIAR WITH ANY OF THESE PROGRAMS. [facility] WOULD LIKE TO HAVE PT EVALUATED FOR REHAB AT [facility] PRIOR TO ANY CONSIDERATION OF RETIREMENT PLACEMENT PT WILL NOT GET THERAPY THERE. CM SPOKE TO PT WHO IS IN AGREEMENT WITH PLAN. CM CALLED [facility], , NOTIFIED OF REHAB REQUEST; PT HAS ONLY 24 ACUTE DAYS THAT STARTED IN JANUARY, IT DEPENDS ON HOW MANY HAVE BEEN ALREADY USED, PT'S CONDITION AND NEEDS THAT WOULD HAVE TO BE MET IN THE REMAINING DAYS THAT PT HAS TO USE FOR REHAB . CM FAXED REFERRALINFORMATION TO [facility] WITH CURRENT MAR AT [phone]. CM WAITING ADMISSION DETERMINATION FROM [facility] IN [place]. Sandor Carrasquillo, CASE MANAGEMENT Appended by Sandor Carrasquillo on 05/26/2019 15:24 CDT: CM MET WITH PT, GRANDDAUGHTER, DAUGHTER HOUSTON VIA PHONE WITH CM GEAR HOBBER, UNIT NURSE ELECTRONIC ASSEMBLY, REPIRATORY THERAPIST AND GEAR HOBBER OF THERAPY SERVICES REGARDING DISCHARGE PLANNING. CONCERNS OF PT'S PLAN TO GO HOME IN CURRENT CONDITION DISCUSSED. PT AND DAUGHTER HAVE ALREADY ASKED FOR REFERRAL TO [facility] RE[facility], CM HAS SENT IT AND WAITING DETERMINATION. PLAN "B" WAS AGREED TO BE NURSING FACILITY IF NOT ACCEPTED TO [facility] AND THAT CM WOULD ATTEMPT TO FIND ONE THAT MAY DONATE REHAB SERVICES. PT'S DAUGHTER IS RESEARCHING [employer] FROM [facility] FOR REHAB SERVICES. CM WAITING ADMISSION DETERMINATION FROM [facility] IN [place]. Sandor Carrasquillo, CASE MANAGEMENT DCP- Discharge Planning Updated by [id number]: Sandor Carrasquillo on 05/25/19 2:[address] Patient Name: TROY HAYWOOD Encounter No: [id number] : 1955 Primary Insurance: MEDICAID [facility] Date: Planned Disposition: Home HEALTH External Planned Provider: [facility] [place], VISITING NURSES [facility] follow-up note: CM MET WITH PT IN ROOM TO DISCUSS DISCHARGE NEEDS AND PLANNING. CM DISCUSSED AVAILABILITY OF HOME HEALTH, REHAB SERVICES AND MEDICAL EQUIPMENT. PT REFUSES CARE HOME FACILITY PLACEMENT. PT STATES PLAN TO RETURN HOME. 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 PT WAS ABLE TO AMBULATE SMALL DISTANCES AND TRANSFER SELF FROM BED TO ELECTRIC WHEELCHAIR AT HOME. PT THINKS SHE IS GOING TO BE ABLE TO TRANSFER SELF TO GO BACK HOME. PT WANTS HOME HEALTH RESUMED TO GO HOME. CM EXPRESSED CONCERN OF PT'S CURRENT LEVEL OF FUNCTIONING AND RETURNING HOME. PT DENIES HAVING FRIENDS OR FAMILY TO ASSIST WITH HER CARE AT HOME BUT IS NOT GOING TO A RETIREMENT. PT THINKS SHE WILL NEED AN AMBULANCE FOR TRANSPORT HOME HER ELECTRIC WHEELCHAIR IS THERE. CM EXPLAINED TO PT THAT SHE WILL NEED TO DEMONSTRATE WITH THERAPY THE ABILITY TO TRANSFER AND SIT IN CHAIR FOR DISCHARGE. PT STATED UNDRESTANDING. CHOICE FOR [facility] VISITING NURSES HOME HEALTH SIGNED. 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 PT REFUSED NURSING FACILITY PLACEMENT. PT WILL NEED TO DEMONSTRATE ABILITY TO TRANSFER AND SIT IN CHAIR FOR DISCHARGE SHE HAS ELECTRIC WHEELCHAIR AT HOME. CM TO ARRANGE HOME HEALTH RESUMPTION WITH [facility] VISITING NURSES AGENCY IN [place] FOR DISCHARGE HOME. CM TO CONTINUE TO FOLLOW AND ASSIST NEEDED. Sandor Carrasquillo, CASE MANAGEMENT DCP- Discharge Planning Updated by [id number]: Aleisha Monroe on 05/19/19 7:[address] Patient Name: TROY HAYWOOD Admission Status: ER Accout number: [id number] Admission Date: 05-14-2019 : 1955 Admission Diagnosis: Attending: FABIO PINEDA Current LOS: 5 Anticipated DC Date: Planned Disposition: Home or Self Care Primary Insurance: MED[place] Discharge Planning Comments: CM met with patient and daughter to complete initial dc planning assessment. Patient recently extubated earlier today. CM educated patient on the CM role and verbal consent given by patient to complete assessment. Patient lives at home with her two young grand-daughters where she is independent with her care. At discharge patient plans to return home and feels this is a safe discharge. CM discussed availability of home health, rehab services, and medical equipment. Patient has Home 02 and HH with unknown providers. CM will f/u with patient @ later date to see if she is able to give providers. Patient denied known discharge needs at this time. CM will continue to follow and will assist as needed with dc plans/needs. Cleaning Custodian: Aleisha Monroe DCPIA - Discharge Planning Initial Assessment Updated by [id number]: Sandor Carrasquillo on 05/28/19 9:36 am * How many steps to enter\\exit or inside your home? * PCP uncertain ? * Pharmacy [place] * Preadmission Environment Home with Family * ADLs Independent * Other Equipment HOME 02, WALKER, SCOOTER, BSC, SC * List name and contact numbers for known caregivers / representatives who currently or will assist patient after discharge: CHEPE SUN - DAUGHTER- [phone] HOUSTON SALGADO, DTR - [phone] * Verbal permission to speak to the caregivers and representatives has been obtained from the patient. Yes * Community resources currently utilized Home Health * Please name any agencies selected above. [facility] * Additional services required to return to the preadmission environment? No * Can the patient safely return to the preadmission environment? Yes * Has this patient been hospitalized within the prior 30 days at any hospital? No Coverage Notice Reviewer: [id number] Carrasquillo Notice Issued Date-Time: 05/25/2019 14:05 Notice Type: Patient Choice Letter Notice Delivered To: Patient Relationship to Patient: Plant Facilities Technician Name: Delivery Method: HAND - Hand Delivered Marry Days: Prior Verbal Notification: Recipient Understood Notice: Yes Recipient Signature: Yes Med Rec Note Co-signed by Attending: Coverage Notice Comment: [facility]- VISITING NURSES [facility] Reviewer: [id number] Carrasquillo Notice Issued Date-Time: 05/31/2019 14:50 Notice Type: Patient Choice Letter Notice Delivered To: Patient Relationship to Patient: Plant Facilities Technician Name: Delivery Method: HAND - Hand Delivered Marry Days: Prior Verbal Notification: Recipient Understood Notice: Yes Recipient Signature: Yes Med Rec Note Co-signed by Attending: Coverage Notice Comment: [facility] Last DP export: 06/04/19 4:43 p Patient Name: TROY HAYWOOD Page [id number] at 0919 All edits/amendments must be made on the electronic document DICTATION DATE: 06/07/19918 TOMBSTONE ERECTOR HELPER: MISHEL 06/07/19918 RPT#: [id number] DC DATE: STATUS: ADM IN [facility] [address] [place] [address] END OF REPORT
[2019-06-07 12:00] VITALS: BP 127/52
--- NOTE | 2019-06-07 14:45 | NUR ---
OT NOTE: PRACTICED BED MOB AND PT WAS ABLE TO GET LES TO EOB WITH EXT TIME; LESS ASSIST REQUIRED FOR SUPINE TO SIT. SITTING ON EOB WITH SPV; SIT TO STAND WITH MOD ASSIST X 2..PT ABLE TO MAINTAIN STANDING FOR GREATER THAN 45 SEC WHILE LINENS CHANGED THEN AGAIN FOR TOILET HYGIENE. MAX ASSIST FOR TOILET HYGIENE AND LE DRESSING. DTR IN ROOM AND PT WANTED TO SIT UP ON EOB FOR A SHORT TIME. ALLOW TO PERFORM DTR WAS WITH HER. PT TOLERATED APPROX 10-15 MIN; ASSISTED PT BACK WITH MAX ASSIST AND MAX ASSIST TO REPOSITION. DISCUSSED WITH PT AND DTR AGAIN THAT PT COULD PERFORM EXS WITHOUT WTS AND INCREASE NUMBER OF REPS FROM 5-10. SAÚL ESCAMILLA, OTR/L
--- NOTE | 2019-06-07 15:00 | NUR ---
OT NOTE: PT COMPLETED SUPINE TO SIT WITH MOD A X2. PT COMPLETED SIT TO STAND WITH MAX A X2. PT COMPLETED LB HYGIENE TASKS WITH MAX A. THANK YOU,BLADIMIR MANCERA
--- NOTE | 2019-06-07 16:51 | NUR ---
I AGREE WITH THE ASSESSMENT OF THE DIRECTOR OF COLLECTIONS ON STAFF
--- NOTE | 2019-06-07 18:28 | NUR ---
ALERT AND ORIENTED, RESTING IN BED. FAMILY AT BEDSIDE. NO C/O PAIN. NO S/S OF ACUTE DISTRESS NOTED. CALL LIGHT IN REACH. DENIES ANY NEEDS AT THIS TIME. WILL CONTINUE TO MONITOR.
--- NOTE | 2019-06-07 19:30 | NUR ---
BED LOW AND LOCKED CALL LIGHT IN REACH AND FAMILY WITH PT FAMILY HAS A DESIRE TO SPEAK WITH I CALLED AND SPOKE WITH Byron cedillo ABOUT THIS
[2019-06-07 20:00] VITALS: BP 118/52
[2019-06-08] VITALS: BP 100/42
[2019-06-08 04:25] VITALS: BP 122/50
[2019-06-08 05:24] LABS: BASOPHILS 1.8 % (0-2); EOSINOPHILS 12.8 % (0-7); HEMATOCRIT 30.1 % (36.0-48.0); HEMOGLOBIN 8.7 g/dL (12-16); IMMATURE GRANULOCYTES 0.3 % (0-5); LYMPHOCYTES 30.5 % (15-50); MCH 27.3 pg (26.0-34.0); MCHC 28.9 g/dL (31.0-37.0); MCV 94.4 fL (80.0-100.0); MEAN PLATELET VOLUME 10.5 fL (7.4-10.4); MONOCYTES 15.9 % (2-11); NEUTROPHILS 38.7 % (40-80); RBC 3.19 10x6/uL (4.00-5.40); RDW 17.7 % (11.5-14.5); WBC 3.9 10x3/uL (4.8-10.8)
[2019-06-08 05:34] LABS: PLATELET COUNT 358 10x3/uL (130-400)
[2019-06-08 05:49] LABS: ANION GAP 9.1 mmol/L (8-16); CALCIUM 8.8 mg/dL (8.5-10.1); CARBON DIOXIDE 26.8 mmol/L (21.0-32.0); CREATININE - SERUM 1.3 mg/dL (0.6-1.3); MAGNESIUM - SERUM 2.1 mg/dL (1.8-2.4); PHOSPHOROUS 3.5 mg/dL (2.5-4.9); POTASSIUM - SERUM 3.9 mmol/L (3.5-5.1)
--- NOTE | 2019-06-08 07:57 | NUR ---
REPORT RECIEVED. PT LYING IN SEMI FOWLERS. SHE HAS A BLALARD DRAINING URINE AND A RIGHT CHEST IJ. RR EVEN AND UNLABORED ON 5L NC. BED LOCKED AND IN LOWEST POSITION, CALL LIGHT WITHIN REACH. WILL CTM
--- NOTE | 2019-06-08 08:19 | MORECARE ---
CASE MANAGEMENT DISCHARGE SUMMARY PATIENT: TROY HAYWOOD UNIT: [id number] ADM DATE: 05/14/19 AGE: 64 : 57 SEX: F ROOM/BED: D.2140 AUTHOR: DAYDAY,DOC PHYSICIAN: REFERRING PHYSICIAN: FABIO PINEDA MD DATE OF SERVICE: 06/08/19 Discharge Plan Patient Name: TROY HAYWOOD Facility: [facility]:[place] : 1955 Planned Disposition: Nursing Facility YUN Cert Anticipated Discharge Date: 06/02/19 Discharge Date: Expected LOS: 19 Initial Reviewer: [id number] Initial Review Date: 05/19/2019 Generated: 06/08/19 9:18 am DCP- Discharge Planning Updated by [id number]: Sandor Carrasquillo on 06/04/19 4:[address] Patient Name: TROY HAYWOOD Encounter No: [id number] : 1955 Primary Insurance: [place] Anticipated DC Date: 06-02-2019 Planned Disposition: Nursing Facility [facility] Cert External Planned Provider: TO BE DETERMINED DCP follow-up note: CM SPOKE TO PT AND DAUGHTER CHEPE, IN ROOM. PT IS AND FOR PAST 10 YEARS, BUT NOT LEGALLY. THEY CANNOT QUALIFY FOR MEDICAID FOR [facility] DUE TO NOT HAVING SPOUSE FINANICAL INFORMATION. PT AND DAUGHTER BOTH STATE THAT THEY DO NOT WANT TO PUT PT INTO FPC SNF CARE WHERE SHE WILL JUST LAY IN THE BED. THEY DO NOT WANT FURTHER SNF REFERRALS FAXED OUT. CM DISCUSSED THAT PT IS STABLE FOR DISCHARGE MEDICALLY. PT'S DAUGHTER REPORTS PT IS NOT HAVING BOWEL MOVEMENTS AND THAT THE FECES COMING OUT IS COMING AROUND AN IMPACTION AND NO ONE IS ADDRESSING THIS. CM NOTIFIED TOBY [facility] WHO PROVIDED ORDERS FOR MEDICATION TO TREAT CONDITION. BEDSIDE NURSE NOTIFIED. PT'S DAUGHTER PROVIDED CM WITH 77 PAGES AND ASKED CM TO FAX TO [facility] REGARDING REHAB SERVICES FOR PT. CM FAXED TO [facility] FINANCIAL ASSISTANCE PROGRAM AT [phone]. PT'S DAUGHTER ADVISED THAT IF APPROVED, PT WILL HAVE TO GO TO A [facility] FOR REHAB. PT WAS DECLINED FPC CARE PLACEMENT AT [facility]; PT AND FAMILY DECLINE TO HAVE FURTHER REFERRALS SENT OUT. FAMILY IS TRYING TO SECURE FINANCIAL ASSISTANCE FOR REHAB SERVICES THROUGH [facility]. CM TO CONTINUE TO FOLLOW AND ASSIST. ROSANNA Montaño MANAGEMENT DCP- Discharge Planning Updated by [id number]: Sandor Carrasquillo on 06/04/19 11:[address] Patient Name: TROY HAYWOOD Encounter No: [id number] : 1955 Primary Insurance: [place] Anticipated DC Date: 06-02-2019 Planned Disposition: Nursing Facility [facility] Cert External Planned Provider: WAITING FAMILY DECISION DCP follow-up note: CM RECEIVED CALL FROM ANNIE OF [facility] WHO ADVISED CM THAT PT HAS BEEN FIANCIALLY DENIED FOR PLACEMENT. CM SPOKE TO PT IN ROOM WHO ADVISED THAT SHE UNDERSTOOD THEY WERE JUST GOING TO LEAVE HER LAYING IN BED FOR A MONTH AND NOT GIVE HER ANY REHAB SERVICES. CM EXPLAINED THAT MEDICAID DOES NOT PAY FOR REHAB SERVICES, ONLY [facility] AND PT WOULD RECEIVE WHAT THEY CALL "RESTORATIVE CARE" FROM STAFF AT ANY SNF, NOT THERAPY SERVICES. PT STATES SHE IS NOW ABLE TO STAND UP WITH THERAPY HERE. CM EXPLAINED THAT PT IS GETTING 8 TO 16 MINUTES OF THERAPY PER DAY AND THAT ALTHOUGH CM WAS HAPPY WITH PROGRESSION, PT IS MEDICALLY STABLE TO LEAVE THE HOSPITAL AND THAT SHE WOULD RECEIVE MORE THERAPY AT HOME WITH HOME HEALTH THAN IN THIS ACUTE HOSPITAL SETTING. PT STATES SHE IS NOT SURE WHAT HAPPENED, THAT CHEPE IS TAKING CARE OF THIS FOR HER AND THAT CHEPE WILL BE TO THE HOSPITAL IN A LITTLE WHILE TO SPEAK TO CM; PT BELIVES THAT CHEPE IS AGAIN WORKING ON TRYING TO GET [facility] CARE THROUGH THE [employer] [facility]. PT HAS BEEN FINANCIALLY DECLINED FOR [facility]PC CARE PLACEMENT BY [facility]. PT DEFERRING PLANNING TO HER DAUGHTER, CHEPE. CM WAITING FAMILY TO ARRIVE TO DISCUSS FURTHER DISCHARGE PLANNING. ROSANNA Montaño DCP- Discharge Planning Updated by [id number]: Sandor Carrasquillo on 06/03/19 7:[address] Patient Name: TROY HAYWOOD Encounter No: [id number] : 1955 Primary Insurance: [place] Anticipated DC Date: 06-02-2019 Planned Disposition: Nursing Facility [facility] Cert External Planned Provider: [facility], [facility] MEDICAID BED DISCHARGE PLANNING NOTE: CM FAXED REFERRAL UPDATE TO [facility] AT [phone]. CM WAITING ADMISSION DETERMINATION FROM [facility] FOR [facility]. WAITING FAMILY TO PROVIDE FINANCIAL INFORMATION FOR FPC CARE MEDICAID APPLICATION TO FACILITY. Sandor Carrasquillo CASE MANAGEMENT DCP- Discharge Planning Updated by [id number]: Sandor Carrasquillo on 06/02/19 3:[address] Patient Name: TROY HAYWOOD Encounter No: [id number] : 1955 Primary Insurance: [place] Anticipated DC Date: 06-02-2019 Planned Disposition: Nursing Facility [facility] Cert External Planned Provider: [facility], [facility] MEDICAID BED DCP follow-up note: CM FAXED REFERRAL UPDATE TO [facility] AT [phone]. CM WAITING ADMISSION DETERMINATION FROM [facility] FOR [facility]. Sandor Carrasquillo, CASE MANAGEMENT Appended by Sandor Carrasquillo on 06/02/2019 16:50 SANFORIZING MACHINE OPERATOR: CM RECEIVED CALL FROM LUIS OF [facility], , THEY RECEIVED THE UPDATE BY FAX AND WILL CONTACT FAMILY REGARDING FINANCIALS. LUIS REPORTS THEY ARE STILL WAITING ON NURSING TO ACCEPT FOR [facility] AND WILL ALSO NEED FINANCIAL CLEARANCE TO ENTER THE FACILITY. CM WAITING ADMISSION DETERMINATION FROM [facility] FOR [facility]. [facility]TA[facility] FAMILY TO ASSIST WITH FINANCIAL INFORMATION FOR [facility] MEDICAID APPLICATION. ROSANNA Montaño DCP- Discharge Planning Updated by [id number]: Sandor Carrasquillo on 06/01/19 4:[address] Patient Name: TROY HAYWOOD Encounter No: [id number] : 1955 Primary Insurance: [place] Anticipated DC Date: 06-02-2019 Planned Disposition: Nursing Facility [facility] Cert External Planned Provider: [facility], [facility] MEDICAID BED DCP follow-up note: CM MET WITH PT AND DAUGHTER HOUSTON, WHO HAS MADE IT FROM [place]. UPDATE PROVIDED. CM CALLED [facility] DALE INFORMED CM THAT REFERRAL FROM AND [facility] WAS RECEIVED, STAFF IN MEETING TODAY AND THEY WILL FINISH ADMISSION REVIEW TOMORROW, 06-02-19. CM NOTIFIED PT AND DAUGHTER IN ROOM. CM WAITING ADMISSION DETERMINATION FROM [facility] FOR FPC CARE. Sandor Carrasquillo CASE MANAGEMENT DCP- Discharge Planning Updated by [id number]: Sandor Carrasquillo on 05/31/19 3:[address] Patient Name: TROY HAYWOOD Encounter No: [id number] : 1955 Primary Insurance: [place] Anticipated DC Date: 06-01-2019 Planned Disposition: Nursing Facility [facility] Cert External Planned Provider: [facility], [facility] MEDICAID BED DCP follow-up note: AFTER SEVERAL VISITS WITH PT IN ROOM, PHONE CALLS WITH DAUGHTERS, [facility], PT DECIDED TO CONSENT TO 30 DAYS OF [facility] AT [facility] AFTER PT'S DACE, WITH AIDE OF [facility] WHO WILL CONSIDER PT FOR CARE. PT SIGNED CHOICE. CM FAXED REFERRAL INFORMATION TO [facility] AT [phone]. CM WAITING ADMISSION DETERMINATION FROM [facility] FOR FPC CARE. Sandor Carrasquillo CASE MANAGEMENT DCP- Discharge Planning Updated by [id number]: Sandor Carrasquillo on 05/28/19 3:[address] Patient Name: TROY HAYWOOD Encounter No: [id number] : 1955 Primary Insurance: [place] Anticipated DC Date: 06-02-2019 Planned Disposition: Home with [facility] External Planned Provider: [facility] DCP follow-up note: CM RECEIVED CALL FROM PT'S DAUGHTER, CHEPE, WHO VERIFIED THAT SHE WILL COME NEXT WEEK TO STAY WITH PT FOR TWO OR THREE WEEKS TO CARE FOR PT AT HOME. CHEPE WILL DISCUSS WITH HER MOTHER THAT SHE WILL HAVE TO BE ABLE TO STAND AND TRANSFER FOR CHEPE TO CARE FOR HER. CM REVIEWED THERAPY NOTES TO PRESENT. 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 PT HAS BEDSIDE COMMODE AND WHEELCHAIR AT HOME. CHEPE REPORTS NEED OF [facility] RESUMPTION. CHEPE WILL DISCUSS WITH PT AND TRY TO MOTIVATE HER TO MEET THERAPY GOALS PRIOR TO ARRIVAL ON NEXT FRIDAY OR FRIDAY. PT'S DAUGHTER PLANS TO TAKE PT HOME NEXT FRIDAY OR FRIDAY, THEY WILL NEED [facility], DENIES FURTHER NEEDS. CM TO FOLLOW AND ASSIST NEEDED. Sandor Carrasquillo, CASE MANAGEMENT DCP- Discharge Planning Updated by [id number]: Sandor Carrasquillo on 05/28/19 2:[address] Patient Name: TROY HAYWOOD Encounter No: [id number] : 1955 Primary Insurance: [place] Anticipated DC Date: Planned Disposition: Nursing Facility [facility] Cert External Planned Provider: TO BE DETERMINED DCP follow-up note: CM SPOKE TO [facility], SHE INFORMED CM THAT UPDATES HAVE BEEN RECEIVED, PT IS NOT MAKING ENOUGH PROGRESS WITH THERAPY THAT THEY DO NOT BELIEVE THAT PT WILL BE ABLE TO ACHIEVE THERAPY GOALS IN THE REMAINING 10 DAYS OF ACUTE DAYS THAT PT HAS REMAINING. CM NOTIFIED PT AND PROVIDED PT WITH NURSING FACILITY LISTING OF ALL AVAILABLE FACILITIES WITHIN [address] OF [place]. PT WILL SPEAK TO HER DAUGHTER AND NOTIFY CM OF HER CHOICES. CM CALLED [facility], , TWICE; AUTOMATED MESSAGE INFORMED CM THAT THE NUMBER WAS RESTRICTED OR CURRENTLY UNAVAILABLE. CM WAITING PT AND FAMILY TO PROVIDE NURSING FACILITY CHOICES FOR FPC CARE. Sandor Carrasquillo, CASE MANAGEMENT Appended by Sandor Carrasquillo on 05/28/2019 12:07 CDT: CM SPOKE TO PT IN ROOM, NOTIFIED PT THAT CM TRIED AND COULD NOT REACH DAUGHTER HOUSTON VIA PHONE. PT REPORTS SHE SPOKE TO [facility] WHO TOLD HER THAT [facility] WILL NOT TAKE HER DUE TO WEIGHT; PT'S DAUGHTER TOLD PT THAT COUNT INCLUDES THE [facility] PROBABLY WILL NOT TAKE HER. PT REPORTS THERE IS ONE IN [place] THAT MIGHT CONSIDER HER. CM OFFERED CHOICE FORM FOR SIGNATURE SO THAT CM COULD SEND REFERRALS AND BEGIN CALLING TO FIND PLACEMENT. PT REFUSED AND STATES SHE HAS A DAUGHTER, CHEPE, WHO IS A REGISTERED NURSE, THAT MAY BE COMING TO TAKE CARE OF PT AT HOME. PT'S DAUGHTER HOUSTON IS CALLING DAUGHTER CHEPE TO DISCUSS THE OPTION. PT STATES SHE WILL LET CM KNOW THE OUTCOME AND IF SHE WANTS CM TO EXPLORE SNF CARE FOR HER. CM WAITING PT AND FAMILY TO PROVIDE NURSING FACILITY CHOICES AND FOR PT TO SIGN CONSENT FOR SNF PLACEMENT. PT IS NOW HOPEFUL THAT HER DAUGHTER WHO IS A REGISTERED NURSE WILL COME AND STAY WITH PT AND TAKE CARE OF HER AT HOME. SANDOR CARRASQUILLO, CASE MANAGEMENT Appended by Sandor Carrasquillo on 05/28/2019 14:27 CDT: CM RECEIVED MESSAGE THAT PT WANTS TO SEE CM. CM MET WITH PT IN ROOM WHO INFORMED CM THAT SHE HIS NOT GOING TO A SNF, THAT HER DAUGHTER, CHEPE, WHO IS A NURSE, WILL BE HERE NEXT FRIDAY TO TAKE HER HOME AND WILL TAKE CARE OF PT AT HOME. PT ASKED FOR [facility]TION. CM DISCUSSED POSSIBLE NEED OF [facility] LIFT AND ASKED ABOUT ADDITIONAL EQUIPMENT. PT THINKS BY NEXT WEEK, SHE WILL BE ABLE TO TRANSFER WITHOUT AIDE OF LIFT DEVICE. CM NOTIFIED DR. FREEDMAN WHO INFORMED CM THAT HE WILL ORDER BLOOD GAS ON FRIDAY TO DETERMINE RESPIRATORY DISCHARGE NEEDS AT THAT TIME. PT HAS SIGNED RIGHT OF CHOICE FOR [facility] ALREADY. PT REPORTS HER DAUGHTER, WHO IS A REGISTERED NURSE, WILL BE HERE FRIDAY OF NEXT WEEK TO TAKE CARE OF PT AT HOME. PT PLANS TO DISCHARGE HOME WITH FAMILY AND [facility]. CM TO FOLLOW AND ASSIST NEEDED. ROSANNA MONTAÑO DCP- Discharge Planning Updated by [id number]: Sandor Carrasquillo on 05/28/19 7:[address] Patient Name: TROY HAYWOOD Encounter No: [id number] : 1955 Primary Insurance: [place] Anticipated DC Date: Planned Disposition: Inpatient Rehab External Planned Provider: [facility] DCP follow-up note: CM FAXED REFERRAL UPDATE TO [facility] AT [phone]. CM WAITING ADMISSION DETERMINATION FROM [facility] IN [place]. ROSANNA Montaño DCP- Discharge Planning Updated by [id number]: Sandor Carrasquillo on 05/27/19 2:[address] Patient Name: TROY HAYWOOD Encounter No: [id number] : 1955 Primary Insurance: [place] Anticipated DC Date: Planned Disposition: Inpatient Rehab External Planned Provider: [facility] DCP follow-up note: CM FAXED REFERRAL UPDATE TO [facility]/ [facility] AT [phone]. CM WAITING ADMISSION DETERMINATION FROM [facility] IN [place]. Sandor Carrasquillo CASE MANAGEMENT Appended by Sandor Carrasuqillo on 05/27/2019 14:41 CDT: CM CALLED [facility], , LEFT MESSAGE ASKING FOR UPDATE ON REFERRAL AND TO KNOW IF THEY ARE STILL CONSIDERING PT FOR REHAB. CM WAITING ADMISSION DETERMINATION FROM [facility] IN [place]. Sandor Carrasquillo, CASE MANAGEMENT DCP- Discharge Planning Updated by [id number]: Jesica Cartagena on 05/26/19 4:[address] Patient requested Trapeze bar to allow her to sit up in hospital bed. CM spoke Dr. Lawson and obtained approval for Trapeze bar. CM notified Radha in materials management of request for Trapeze bar. CM completed and gave Radha the order form for the Trapeze bar. Trapeze bar will be delivered. CM notified patient's CM, Christiano Carrasquillo, on status of Trapeze bar. DCP- Discharge Planning Updated by [id number]: Sandor Carrasquillo on 05/26/19 3:[address] Patient Name: TROY HAYWOOD Encounter No: [id number] : 1955 Primary Insurance: MEDICAID [facility] DC Date: Planned Disposition: Inpatient Rehab External Planned Provider: [facility] DCP follow-up note: CM SPOKE TO PT'S DAUGHTER VIA PHONE, HOUSTON NAOMI, . CM OBTAINED PERMISSION FROM PT TO DISCUSS CARE, TREATMENT AND DISCHARGE PLANNING WITH HOUSTON. HOUSTON INFORMED CM THAT PT WAS IN REHAB AT [facility] LAST YEAR AND THEY WANT REFERRED TO [facility] AGAIN. CHRISTOPHER DISCUSSED PT'S VERY LOW LEVEL OF PHYSICAL CONDITIONING. PT'S DAUGHTER FEELS THAT PT CAN PARTICIPATE WITH THERAPY WITH GOAL TO RETURN HOME PREVIOUS WITH ABILITY TO TRANSFER TO ELECTRIC SCOOTER AND HOME HEALTH FOR CONTINUED HOME SERVICES. HOUSTON VERIFIED THAT PT HAS NO ADULTS ABLE TO LIVE WITH AND ASSIST PT AT HOME AT THIS TIME. HOUSTON ASKED ABOUT [facility] REHAB SERVICES THAT MAY TAKE PT AT NO COSTS DUE TO INCOME. CM INFORMED HOUSTON THAT CM WAS NOT FAMILIAR WITH ANY OF THESE PROGRAMS. [facility]ON WOULD LIKE TO HAVE PT EVALUATED FOR REHAB AT [facility] PRIOR TO ANY CONSIDERATION OF SNF PLACEMENT PT WILL NOT GET THERAPY THERE. CHRISTOPHER SPOKE TO PT WHO IS IN AGREEMENT WITH PLAN. CM CALLED [facility] OF [facility], , NOTIFIED OF REHAB REQUEST; PT HAS ONLY 24 ACUTE DAYS THAT STARTED IN JANUARY, IT DEPENDS ON HOW MANY HAVE BEEN ALREADY USED, PT'S CONDITION AND NEEDS THAT WOULD HAVE TO BE MET IN THE REMAINING DAYS THAT PT HAS TO USE FOR REHAB . CM FAXED REFERRALINFORMATION TO [facility] WITH CURRENT MAR AT [phone]. CM WAITING ADMISSION DETERMINATION FROM [facility] IN [place]. Sandor Carrasquillo, CASE MANAGEMENT Appended by Sandor Carrasquillo on 05/26/2019 15:24 CDT: CM MET WITH PT, GRANDDAUGHTER, DAUGHTER HOUSTON VIA PHONE WITH CM ACID REGENERATOR, UNIT NURSE ALTERATION TAILOR APPRENTICE, REPIRATORY THERAPIST AND ACID REGENERATOR OF THERAPY SERVICES REGARDING DISCHARGE PLANNING. CONCERNS OF PT'S PLAN TO GO HOME IN CURRENT CONDITION DISCUSSED. PT AND DAUGHTER HAVE ALREADY ASKED FOR REFERRAL TO [facility] REHAB, CM HAS SENT IT AND WAITING DETERMINATION. PLAN "B" WAS AGREED TO BE NURSING FACILITY IF NOT ACCEPTED TO [facility] AND THAT CM WOULD ATTEMPT TO FIND ONE THAT MAY DONATE REHAB SERVICES. PT'S DAUGHTER IS RESEARCHING ZEKE FUNDING FROM [facility] FOR REHAB SERVICES. CM WAITING ADMISSION DETERMINATION FROM [facility] IN [place]. Sandor Carrasquillo, CASE MANAGEMENT DCP- Discharge Planning Updated by [id number]: Sandor Carrasquillo on 05/25/19 2:[address] Patient Name: TROY HAYWOOD Encounter No: [id number] : 1955 Primary Insurance: MEDICAID [facility] Date: Planned Disposition: Home HEALTH External Planned Provider: [facility], VISITING NURSES [facility] follow-up note: CM MET WITH PT IN ROOM TO DISCUSS DISCHARGE NEEDS AND PLANNING. CM DISCUSSED AVAILABILITY OF HOME HEALTH, REHAB SERVICES AND MEDICAL EQUIPMENT. PT REFUSES LONGTERM FACILITY PLACEMENT. PT STATES PLAN TO RETURN HOME. 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 PT WAS ABLE TO AMBULATE SMALL DISTANCES AND TRANSFER SELF FROM BED TO ELECTRIC WHEELCHAIR AT HOME. PT THINKS SHE IS GOING TO BE ABLE TO TRANSFER SELF TO GO BACK HOME. PT WANTS HOME HEALTH RESUMED TO GO HOME. CM EXPRESSED CONCERN OF PT'S CURRENT LEVEL OF FUNCTIONING AND RETURNING HOME. PT DENIES HAVING FRIENDS OR FAMILY TO ASSIST WITH HER CARE AT HOME BUT IS NOT GOING TO A SNF. PT THINKS SHE WILL NEED AN AMBULANCE FOR TRANSPORT HOME HER ELECTRIC WHEELCHAIR IS THERE. CM EXPLAINED TO PT THAT SHE WILL NEED TO DEMONSTRATE WITH THERAPY THE ABILITY TO TRANSFER AND SIT IN CHAIR FOR DISCHARGE. PT STATED UNDRESTANDING. CHOICE FOR [facility] VISITING NURSES HOME HEALTH SIGNED. 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 PT REFUSED NURSING FACILITY PLACEMENT. PT WILL NEED TO DEMONSTRATE ABILITY TO TRANSFER AND SIT IN CHAIR FOR DISCHARGE SHE HAS ELECTRIC WHEELCHAIR AT HOME. CM TO ARRANGE HOME HEALTH RESUMPTION WITH [facility] VISITING NURSES AGENCY IN [place] FOR DISCHARGE HOME. CM TO CONTINUE TO FOLLOW AND ASSIST NEEDED. Sandor Carrasquillo, CASE MANAGEMENT DCP- Discharge Planning Updated by [id number]: Aleisha Monroe on 05/19/19 7:[address] Patient Name: TROY HAYWOOD Admission Status: ER Accout number: [id number] Admission Date: 05-14-2019 : 1955 Admission Diagnosis: Attending: FABIO PINEDA Current LOS: 5 Anticipated DC Date: Planned Disposition: Home or Self Care Primary Insurance: [place] Discharge Planning Comments: CM met with patient and daughter to complete initial dc planning assessment. Patient recently extubated earlier today. CM educated patient on the CM role and verbal consent given by patient to complete assessment. Patient lives at home with her two young grand-daughters where she is independent with her care. At discharge patient plans to return home and feels this is a safe discharge. CM discussed availability of home health, rehab services, and medical equipment. Patient has Home 02 and HH with unknown providers. CM will f/u with patient @ later date to see if she is able to give providers. Patient denied known discharge needs at this time. CM will continue to follow and will assist as needed with dc plans/needs. [employer]: Aleisha Monroe DCPIA - Discharge Planning Initial Assessment Updated by [id number]: Sandor Carrasquillo on 05/28/19 9:36 am * How many steps to enter\\exit or inside your home? * PCP uncertain ? * Pharmacy [facility] * Preadmission Environment Home with Family * ADLs Independent * Other Equipment HOME 02, WALKER, SCOOTER, BSC, SC * List name and contact numbers for known caregivers / representatives who currently or will assist patient after discharge: CHEPE SUN - DAUGHTER- [phone] HOUSTON SALGADO, DTR - [phone] * Verbal permission to speak to the caregivers and representatives has been obtained from the patient. Yes * Community resources currently utilized Home Health * Please name any agencies selected above. [facility] * Additional services required to return to the preadmission environment? No * Can the patient safely return to the preadmission environment? Yes * Has this patient been hospitalized within the prior 30 days at any hospital? No Coverage Notice Reviewer: [id number] Carrasquillo Notice Issued Date-Time: 05/25/2019 14:05 Notice Type: Patient Choice Letter Notice Delivered To: Patient Relationship to Patient: Wireline Field Operator Name: Delivery Method: HAND - Hand Delivered Marry Days: Prior Verbal Notification: Recipient Understood Notice: Yes Recipient Signature: Yes Med Rec Note Co-signed by Attending: Coverage Notice Comment: [facility]IS[facility] Reviewer: [id number] Carrasquillo Notice Issued Date-Time: 05/31/2019 14:50 Notice Type: Patient Choice Letter Notice Delivered To: Patient Relationship to Patient: Wireline Field Operator Name: Delivery Method: HAND - Hand Delivered Marry Days: Prior Verbal Notification: Recipient Understood Notice: Yes Recipient Signature: Yes Med Rec Note Co-signed by Attending: Coverage Notice Comment: [facility] Last DP export: 06/07/19 8:19 Patient Name: TROY HAYWOOD Page [id number] at 0819 All edits/amendments must be made on the electronic document DICTATION DATE: 06/08/19817 TRANSFORMER REPAIRER: MISHEL 06/08/19817 RPT#: [id number] DC DATE: STATUS: ADM IN [facility] [address] [place] [address] END OF REPORT
[2019-06-08 08:50] VITALS: BP 101/41
--- NOTE | 2019-06-08 11:36 | NUR ---
OT NOTE: EXTENSIVE TIME SPENT WITH PT THIS AM. DTR AT BEDSIDE AND WAS ABLE TO ASSIST WITH ENCOURAGING PT IN PUSHING SELF DURING EXS AND STANDING. PRACTICED BED MOB WITH MUCH LESS ASSIST TODAY. PT ABLE TO GET LEGS OFF OF BED AND REQUIRED ONLY MIN ASSIST TODAY WITH SITTING UP. STATIC SITTING ON EOB WITHOUT SUPPORT X GREATER THAN 20 MIN. PT DOING MUCH BETTER WITH UE/LE EXS . ABLE TO NOW PRESENT 10 REPS OF ALL EXS ( INITALLY PERFORMED 2-5 REPS). PERFORMED SIT TO STAND WITH MOD ASSIST X 2. PT REMAINS IN FLEXED POSITION IN STANDING DUE TO BACK PAIN. PT ABLE TO STAND FOR 1-1.5 MIN X 3 TRIALS. ON 4TH TRIAL, PT WAS ABLE TO TAKE 2 SMALL STEPS TO R. PT CONT TO PERFORM UPPER BODY CARE WITH SET UP, HOWEVER, REQUIRES ASSIST WITH THOROUGH CLEANSING UNDER BREAST, ALL PERINEAL AREA, AND ALL LES. PT IS DEFINITELY IMPROVING. SAÚL ESCAMILLA, OTR/L
[2019-06-08 12:36] VITALS: BP 123/46
--- NOTE | 2019-06-08 14:55 | NUR ---
Nutrition Follow-up: Diet: Renal, Mech Soft (Chopped Meats with Gravy) PO intake: 60% avg yesterday Wt: 449.7# (down from 453# on 05/24) Last BM: 06/07 per chart Labs reviewed Meds reviewed -Rec cardiac diet. -RD following.
--- NOTE | 2019-06-08 16:31 | NUR ---
OT NOTE: PT COMPLETED BED MOB TASKS WITH MOD A X2. PT COMPLETED SIT TO STAND WITH MOD A. PT COMPLETED EOB SITTING WITH SBA. PT COMPLETED UE AROM AXS AT EOB. THANK YOU,BLADIMIR MANCERA
[2019-06-08 17:05] VITALS: BP 100/45
--- NOTE | 2019-06-08 19:01 | NUR ---
AT REST WITH EYES CLOSED NQASAL CANULA IS IN PLACE BED IS LOW AND SRX2 CALL LIGHT ON PT CHEST.
[2019-06-08 20:00] VITALS: BP 125/46
[2019-06-09] VITALS: BP 114/51
--- NOTE | 2019-06-09 02:52 | NUR ---
I have reviewed this patient and I concur with the Shift Assessment completed by the Licensed Practical Nurse today this shift.
[2019-06-09 04:00] VITALS: BP 135/56
[2019-06-09 06:04] LABS: ANION GAP 7.7 mmol/L (8-16); CALCIUM 8.3 mg/dL (8.5-10.1); CARBON DIOXIDE 30.2 mmol/L (21.0-32.0); CREATININE - SERUM 1.3 mg/dL (0.6-1.3); POTASSIUM - SERUM 3.9 mmol/L (3.5-5.1)
--- NOTE | 2019-06-09 07:51 | NUR ---
A/A/OX4. STATE PAIN MED HAS HELPED SOME AND FEELING A LITTLE BETTER. NO REQUESTS VOICED. 02 ON PER HF NC AT 5 L/M. RIGHT IJ TRIPLE LUMEN PATENT WITH DRESSING C/D/I. BALLARD PATENT AND DRAINING CLEAR LIGHT RIO URINE. ASSESSMENT COMPLETED AND CALL LIGHT IN REACH.
[2019-06-09 08:45] VITALS: BP 100/40
--- NOTE | 2019-06-09 09:46 | MORECARE ---
CASE MANAGEMENT DISCHARGE SUMMARY PATIENT: TROY HAYWOOD UNIT: [id number] ADM DATE: 05/14/19 AGE: 64 : 57 SEX: F ROOM/BED: D.2140 AUTHOR: DAYDAY,DOC PHYSICIAN: REFERRING PHYSICIAN: FABIO PINEDA MD DATE OF SERVICE: 06/09/19 Discharge Plan Patient Name: TROY HAYWOOD Facility: [facility]:[place] : 1955 Planned Disposition: Nursing Facility [facility] Cert Anticipated Discharge Date: 06/02/19 Discharge Date: Expected LOS: 19 Initial Reviewer: [id number] Initial Review Date: 05/19/2019 Generated: 06/09/19 10:46 am DCP- Discharge Planning Updated by [id number]: Sandor Carrasquillo on 06/04/19 4:[address] Patient Name: TROY HAYWOOD Encounter No: [id number] : 1955 Primary Insurance: [place]ICAID [place] Anticipated DC Date: 06-02-2019 Planned Disposition: Nursing Facility [facility] Cert External Planned Provider: TO BE DETERMINED DCP follow-up note: CM SPOKE TO PT AND DAUGHTER CHEPE, IN ROOM. PT IS AND FOR PAST 10 YEARS, BUT NOT LEGALLY. THEY CANNOT QUALIFY FOR MEDICAID FOR LICENSE REGISTRATION EXAMINER CARE DUE TO NOT HAVING SPOUSE FINANICAL INFORMATION. PT AND DAUGHTER BOTH STATE THAT THEY DO NOT WANT TO PUT PT INTO LICENSE REGISTRATION EXAMINER HALFWAY CARE WHERE SHE WILL JUST LAY IN THE BED. THEY DO NOT WANT FURTHER HALFWAY REFERRALS FAXED OUT. CM DISCUSSED THAT PT IS STABLE FOR DISCHARGE MEDICALLY. PT'S DAUGHTER REPORTS PT IS NOT HAVING BOWEL MOVEMENTS AND THAT THE FECES COMING OUT IS COMING AROUND AN IMPACTION AND NO ONE IS ADDRESSING THIS. CM NOTIFIED TOBY THOMAS WHO PROVIDED ORDERS FOR MEDICATION TO TREAT CONDITION. BEDSIDE NURSE NOTIFIED. PT'S DAUGHTER PROVIDED CM WITH 77 PAGES AND ASKED CM TO FAX TO [facility] FOR FINANCIAL ASSISTANCE REGARDING REHAB SERVICES FOR PT. CM FAXED TO [facility] FINANCIAL ASSISTANCE PROGRAM AT [phone]. PT'S DAUGHTER ADVISED THAT IF APPROVED, PT WILL HAVE TO GO TO A [facility] FOR REHAB. PT WAS DECLINED JAIL CARE PLACEMENT AT [place]; PT AND FAMILY DECLINE TO HAVE FURTHER REFERRALS SENT OUT. FAMILY IS TRYING TO SECURE FINANCIAL ASSISTANCE FOR REHAB SERVICES THROUGH [facility]. CM TO CONTINUE TO FOLLOW AND ASSIST. ROSANNA Montaño MANAGEMENT DCP- Discharge Planning Updated by [id number]: Sandor Carrasquillo on 06/04/19 11:[address] Patient Name: TROY HAYWOOD Encounter No: [id number] : 1955 Primary Insurance: MEDICAID [place] Anticipated DC Date: 06-02-2019 Planned Disposition: Nursing Facility [facility] Cert External Planned Provider: WAITING FAMILY DECISION DCP follow-up note: CM RECEIVED CALL FROM ANNIE OF [facility] WHO ADVISED CM THAT PT HAS BEEN FIANCIALLY DENIED FOR PLACEMENT. CM SPOKE TO PT IN ROOM WHO ADVISED THAT SHE UNDERSTOOD THEY WERE JUST GOING TO LEAVE HER LAYING IN BED FOR A MONTH AND NOT GIVE HER ANY REHAB SERVICES. CM EXPLAINED THAT MEDICAID DOES NOT PAY FOR REHAB SERVICES, ONLY JAIL CARE AND PT WOULD RECEIVE WHAT THEY CALL "RESTORATIVE CARE" FROM STAFF AT ANY HALFWAY, NOT THERAPY SERVICES. PT STATES SHE IS NOW ABLE TO STAND UP WITH THERAPY HERE. CM EXPLAINED THAT PT IS GETTING 8 TO 16 MINUTES OF THERAPY PER DAY AND THAT ALTHOUGH CM WAS HAPPY WITH PROGRESSION, PT IS MEDICALLY STABLE TO LEAVE THE HOSPITAL AND THAT SHE WOULD RECEIVE MORE THERAPY AT HOME WITH HOME HEALTH THAN IN THIS ACUTE HOSPITAL SETTING. PT STATES SHE IS NOT SURE WHAT HAPPENED, THAT CHEPE IS TAKING CARE OF THIS FOR HER AND THAT CHEPE WILL BE TO THE HOSPITAL IN A LITTLE WHILE TO SPEAK TO CM; PT BELIVES THAT CHEPE IS AGAIN WORKING ON TRYING TO GET [facility] REHAB CARE THROUGH THE [facility]. PT HAS BEEN FINANCIALLY DECLINED FOR JAIL C[facility] PLACEMENT BY [facility]. PT DEFERRING PLANNING TO HER DAUGHTER, CHEPE. CM WAITING FAMILY TO ARRIVE TO DISCUSS FURTHER DISCHARGE PLANNING. ROSANNA Montaño DCP- Discharge Planning Updated by [id number]: Sandor Carrasquillo on 06/03/19 7:[address] Patient Name: TROY HAYWOOD Encounter No: [id number] : 1955 Primary Insurance: MEDICAID [place] Anticipated DC Date: 06-02-2019 Planned Disposition: Nursing Facility [facility] Cert External Planned Provider: [facility] JAIL CARE MEDICAID BED DISCHARGE PLANNING NOTE: CM FAXED REFERRAL UPDATE TO [facility] AT [phone]. CM WAITING ADMISSION DETERMINATION FROM [facility] FOR LICENSE REGISTRATION EXAMINER CARE. WAITING FAMILY TO PROVIDE FINANCIAL INFORMATION FOR LICENSE REGISTRATION EXAMINER CARE MEDICAID APPLICATION TO FACILITY. Sandor Carrasquillo CASE MANAGEMENT DCP- Discharge Planning Updated by [id number]: Sandor Carrasquillo on 06/02/19 3:[address] Patient Name: TROY HAYWOOD Encounter No: [id number] : 1955 Primary Insurance: MEDICAID [place] Anticipated DC Date: 06-02-2019 Planned Disposition: Nursing Facility [facility] Cert External Planned Provider: [facility], JAIL [facility] MEDICAID BED DCP follow-up note: CM FAXED REFERRAL UPDATE TO [facility] AT [phone]. CM WAITING ADMISSION DETERMINATION FROM [facility] FOR LICENSE REGISTRATION EXAMINER CARE. Sandor Carrasquillo, CASE MANAGEMENT Appended by Sandor Carrasquillo on 06/02/2019 16:50 MORTUARY BEAUTICIAN: CM RECEIVED CALL FROM LUIS OF [facility], , THEY RECEIVED THE UPDATE BY FAX AND WILL CONTACT FAMILY REGARDING FINANCIALS. LUIS REPORTS THEY ARE STILL WAITING ON NURSING TO ACCEPT FOR JAIL CARE AND WILL ALSO NEED FINANCIAL CLEARANCE TO ENTER THE FACILITY. CM WAITING ADMISSION DETERMINATION FROM [facility] FOR LICENSE REGISTRATION EXAMINER CARE. [facility] CONTA[facility] FAMILY TO ASSIST WITH FINANCIAL INFORMATION FOR LICENSE REGISTRATION EXAMINER CARE MEDICAID APPLICATION. ROSANNA Montaño DCP- Discharge Planning Updated by [id number]: Sandor Carrasquillo on 06/01/19 4:[address] Patient Name: TROY HAYWOOD Encounter No: [id number] : 1955 Primary Insurance: MEDICAID [place] Anticipated DC Date: 06-02-2019 Planned Disposition: Nursing Facility [facility] Cert External Planned Provider: [facility], LICENSE REGISTRATION EXAMINER CARE MEDICAID BED DCP follow-up note: CM MET WITH PT AND DAUGHTER HOUSTON, WHO HAS MADE IT FROM [place]. UPDATE PROVIDED. CM CALLED [facility] DALE INFORMED CM THAT REFERRAL FROM AND [facility] WAS RECEIVED, STAFF IN MEETING TODAY AND THEY WILL FINISH ADMISSION REVIEW TOMORROW, 06-02-19. CM NOTIFIED PT AND DAUGHTER IN ROOM. CM WAITING ADMISSION DETERMINATION FROM [facility] FOR JAIL CARE. Sandor Carrasquillo CASE MANAGEMENT DCP- Discharge Planning Updated by [id number]: Sandor Carrasquillo on 05/31/19 3:[address] Patient Name: TROY HAYWOOD Encounter No: [id number] : 1955 Primary Insurance: MEDICAID [place] Anticipated DC Date: 06-01-2019 Planned Disposition: Nursing Facility [facility] Cert External Planned Provider: [facility], LICENSE REGISTRATION EXAMINER CARE MEDICAID BED DCP follow-up note: AFTER SEVERAL VISITS WITH PT IN ROOM, PHONE CALLS WITH DAUGHTERS, [facility] AND [facility], PT DECIDED TO CONSENT TO 30 DAYS OF JAIL CARE AT [facility] AFTER PT'S DACE, WITH AIDE OF [facility], LOCATED [place] WHO WILL CONSIDER PT FOR CARE. PT SIGNED CHOICE. CM FAXED REFERRAL INFORMATION TO [facility] AT [phone]. CM WAITING ADMISSION DETERMINATION FROM [facility] FOR LICENSE REGISTRATION EXAMINER CARE. Sandor Carrasquillo CASE MANAGEMENT DCP- Discharge Planning Updated by [id number]: Sandor Carrasquillo on 05/28/19 3:[address] Patient Name: TROY HAYWOOD Encounter No: [id number] : 1955 Primary Insurance: MEDICAID [place] Anticipated DC Date: 06-02-2019 Planned Disposition: Home with [facility] External Planned Provider: [facility] [employer] [facility] DCP follow-up note: CM RECEIVED CALL FROM PT'S DAUGHTER, CHEPE, WHO VERIFIED THAT SHE WILL COME NEXT WEEK TO STAY WITH PT FOR TWO OR THREE WEEKS TO CARE FOR PT AT HOME. CHEPE WILL DISCUSS WITH HER MOTHER THAT SHE WILL HAVE TO BE ABLE TO STAND AND TRANSFER FOR CHEPE TO CARE FOR HER. CM REVIEWED THERAPY NOTES TO PRESENT. 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 PT HAS BEDSIDE COMMODE AND WHEELCHAIR AT HOME. CHEPE REPORTS NEED OF [employer] [facility] RESUMPTION. CHEPE WILL DISCUSS WITH PT AND TRY TO MOTIVATE HER TO MEET THERAPY GOALS PRIOR TO ARRIVAL ON NEXT FRIDAY OR FRIDAY. PT'S DAUGHTER PLANS TO TAKE PT HOME NEXT FRIDAY OR FRIDAY, THEY WILL NEED [facility] RES[facility]TION, DENIES FURTHER NEEDS. CM TO FOLLOW AND ASSIST NEEDED. Sandor Carrasquillo, CASE MANAGEMENT DCP- Discharge Planning Updated by [id number]: Sandor Carrasquillo on 05/28/19 2:[address] Patient Name: TROY HAYWOOD Encounter No: [id number] : 1955 Primary Insurance: MEDICAID [place] Anticipated DC Date: Planned Disposition: Nursing Facility [facility] Cert External Planned Provider: TO BE DETERMINED DCP follow-up note: CM SPOKE TO [facility], SHE INFORMED CM THAT UPDATES HAVE BEEN RECEIVED, PT IS NOT MAKING ENOUGH PROGRESS WITH THERAPY THAT THEY DO NOT BELIEVE THAT PT WILL BE ABLE TO ACHIEVE THERAPY GOALS IN THE REMAINING 10 DAYS OF ACUTE DAYS THAT PT HAS REMAINING. CM NOTIFIED PT AND PROVIDED PT WITH NURSING FACILITY LISTING OF ALL AVAILABLE FACILITIES WITHIN [address] [place]. PT WILL SPEAK TO HER DAUGHTER AND NOTIFY CM OF HER CHOICES. CM CALLED [facility], , TWICE; AUTOMATED MESSAGE INFORMED CM THAT THE NUMBER WAS RESTRICTED OR CURRENTLY UNAVAILABLE. CM WAITING PT AND FAMILY TO PROVIDE NURSING FACILITY CHOICES FOR JAIL CARE. Sandor Carrasquillo, CASE MANAGEMENT Appended by Sandor Carrasquillo on 05/28/2019 12:07 CDT: CM SPOKE TO PT IN ROOM, NOTIFIED PT THAT CM TRIED AND COULD NOT REACH DAUGHTER HOUSTON VIA PHONE. PT REPORTS SHE SPOKE TO [facility] WHO TOLD HER THAT [facility] WILL NOT TAKE HER DUE TO WEIGHT; PT'S DAUGHTER TOLD PT [facility]. PT REPORTS THERE IS ONE IN [place] THAT MIGHT CONSIDER HER. CM OFFERED CHOICE FORM FOR SIGNATURE SO THAT CM COULD SEND REFERRALS AND BEGIN CALLING TO FIND PLACEMENT. PT REFUSED AND STATES SHE HAS A DAUGHTER, CHEPE, WHO IS A REGISTERED NURSE, THAT MAY BE COMING TO TAKE CARE OF PT AT HOME. PT'S DAUGHTER HOUSTON IS CALLING DAUGHTER CHEPE TO DISCUSS THE OPTION. PT STATES SHE WILL LET CM KNOW THE OUTCOME AND IF SHE WANTS CM TO EXPLORE HALFWAY CARE FOR HER. CM WAITING PT AND FAMILY TO PROVIDE NURSING FACILITY CHOICES AND FOR PT TO SIGN CONSENT FOR HALFWAY PLACEMENT. PT IS NOW HOPEFUL THAT HER DAUGHTER WHO IS A REGISTERED NURSE WILL COME AND STAY WITH PT AND TAKE CARE OF HER AT HOME. SANDOR CARRASQUILLO, CASE MANAGEMENT Appended by Sandor Carrasquillo on 05/28/2019 14:27 CDT: CM RECEIVED MESSAGE THAT PT WANTS TO SEE CM. CM MET WITH PT IN ROOM WHO INFORMED CM THAT SHE HIS NOT GOING TO A HALFWAY, THAT HER DAUGHTER, CHEPE, WHO IS A NURSE, WILL BE HERE NEXT FRIDAY TO TAKE HER HOME AND WILL TAKE CARE OF PT AT HOME. PT ASKED FOR [facility] RESUMPTION. CM DISCUSSED POSSIBLE NEED OF DEBORAH LIFT AND ASKED ABOUT ADDITIONAL EQUIPMENT. PT THINKS BY NEXT WEEK, SHE WILL BE ABLE TO TRANSFER WITHOUT AIDE OF LIFT DEVICE. CM NOTIFIED DR. FREEDMAN WHO INFORMED CM THAT HE WILL ORDER BLOOD GAS ON FRIDAY TO DETERMINE RESPIRATORY DISCHARGE NEEDS AT THAT TIME. PT HAS SIGNED RIGHT OF CHOICE FOR [facility] ALREADY. PT REPORTS HER DAUGHTER, WHO IS A REGISTERED NURSE, WILL BE HERE FRIDAY OF NEXT WEEK TO TAKE CARE OF PT AT HOME. PT PLANS TO DISCHARGE HOME WITH FAMILY AND [facility]. CM TO FOLLOW AND ASSIST NEEDED. ROSANNA MONTAÑO DCP- Discharge Planning Updated by [id number]: Sandor Carrasquillo on 05/28/19 7:[address] Patient Name: TROY HAYWOOD Encounter No: [id number] : 1955 Primary Insurance: MEDICAID [place] Anticipated DC Date: Planned Disposition: Inpatient Rehab External Planned Provider: [facility] DCP follow-up note: CM FAXED REFERRAL UPDATE TO [facility] AT [phone]. CM WAITING ADMISSION DETERMINATION FROM [facility] IN [place]. ROSANNA Montaño DCP- Discharge Planning Updated by [id number]: Sandor Carrasquillo on 05/27/19 2:[address] Patient Name: TROY HAYWOOD Encounter No: [id number] : 1955 Primary Insurance: [place]ICAID [place] Anticipated DC Date: Planned Disposition: Inpatient Rehab External Planned Provider: [facility] DCP follow-up note: CM FAXED REFERRAL UPDATE TO [facility] AT [phone]. CM WAITING ADMISSION DETERMINATION FROM [facility] IN [place]. Sandor Carrasquillo CASE MANAGEMENT Appended by Sandor Carrasquillo on 05/27/2019 14:41 CDT: CM CALLED [facility], , LEFT MESSAGE ASKING FOR UPDATE ON REFERRAL AND TO KNOW IF THEY ARE STILL CONSIDERING PT FOR REHAB. CM WAITING ADMISSION DETERMINATION FROM [facility] IN [place]. Sandor Carrasquillo, CASE MANAGEMENT DCP- Discharge Planning Updated by [id number]: Jesica Cartagena on 05/26/19 4:[address] Patient requested Trapeze bar to allow her to sit up in hospital bed. CM spoke Dr. Lawson and obtained approval for Trapeze bar. CM notified Radha in materials management of request for Trapeze bar. CM completed and gave Radha the order form for the Trapeze bar. Trapeze bar will be delivered. CM notified patient's CM, Christiano Carrasquillo, on status of Trapeze bar. DCP- Discharge Planning Updated by [id number]: Sandor Carrasquillo on 05/26/19 3:[address] Patient Name: TROY HAYWOOD Encounter No: [id number] : 1955 Primary Insurance: MEDICAID [facility] DC Date: Planned Disposition: Inpatient Rehab External Planned Provider: [facility] DCP follow-up note: CM SPOKE TO PT'S DAUGHTER VIA PHONE, HOUSTON NAOMI, . CM OBTAINED PERMISSION FROM PT TO DISCUSS CARE, TREATMENT AND DISCHARGE PLANNING WITH HOUTSON. HOUSTON INFORMED CM THAT PT WAS IN REHAB AT [facility] LAST YEAR AND THEY WANT REFERRED TO [facility] AGAIN. CHRISTOPHER DISCUSSED PT'S VERY LOW LEVEL OF PHYSICAL CONDITIONING. PT'S DAUGHTER FEELS THAT PT CAN PARTICIPATE WITH THERAPY WITH GOAL TO RETURN HOME PREVIOUS WITH ABILITY TO TRANSFER TO ELECTRIC SCOOTER AND HOME HEALTH FOR CONTINUED HOME SERVICES. HOUSTON VERIFIED THAT PT HAS NO ADULTS ABLE TO LIVE WITH AND ASSIST PT AT HOME AT THIS TIME. HOUSTON ASKED ABOUT [facility] REH[facility] SERVICES THAT MAY TAKE PT AT NO COSTS DUE TO INCOME. CM INFORMED HOUSTON THAT CM WAS NOT FAMILIAR WITH ANY OF THESE PROGRAMS. HOUSTON WOULD LIKE TO HAVE PT EVALUATED FOR REHAB AT [facility] PRIOR TO ANY CONSIDERATION OF HALFWAY PLACEMENT PT WILL NOT GET THERAPY THERE. CHRISTOPHER SPOKE TO PT WHO IS IN AGREEMENT WITH PLAN. CM CALLED [facility], , NOTIFIED OF REHAB REQUEST; PT HAS ONLY 24 ACUTE DAYS THAT STARTED IN JANUARY, IT DEPENDS ON HOW MANY HAVE BEEN ALREADY USED, PT'S CONDITION AND NEEDS THAT WOULD HAVE TO BE MET IN THE REMAINING DAYS THAT PT HAS TO USE FOR REHAB . CM FAXED REFERRALINFORMATION TO [facility] WITH CURRENT MAR AT [phone]. CM WAITING ADMISSION DETERMINATION FROM [facility] IN [place]. Sandor Carrasquillo, CASE MANAGEMENT Appended by Sandor Carrasquillo on 05/26/2019 15:24 CDT: CM MET WITH PT, GRANDDAUGHTER, DAUGHTER HOUSTON VIA PHONE WITH CM SYSTEM OPERATOR, UNIT NURSE WELL PULLER, REPIRATORY THERAPIST AND SYSTEM OPERATOR OF THERAPY SERVICES REGARDING DISCHARGE PLANNING. CONCERNS OF PT'S PLAN TO GO HOME IN CURRENT CONDITION DISCUSSED. PT AND DAUGHTER HAVE ALREADY ASKED FOR REFERRAL TO [facility] RE[facility]AB, CM HAS SENT IT AND WAITING DETERMINATION. PLAN "B" WAS AGREED TO BE NURSING FACILITY IF NOT ACCEPTED TO [facility] AND THAT CM WOULD ATTEMPT TO FIND ONE THAT MAY DONATE REHAB SERVICES. PT'S DAUGHTER IS RESEARCHING [employer]DING FROM [facility] FOR REHAB SERVICES. CM WAITING ADMISSION DETERMINATION FROM [facility] IN [place]. Sandor Carrasquillo, CASE MANAGEMENT DCP- Discharge Planning Updated by [id number]: Sandor Carrasquillo on 05/25/19 2:[address] Patient Name: TROY HAYWOOD Encounter No: [id number] : 1955 Primary Insurance: MEDICAID [facility] Date: Planned Disposition: Home HEALTH External Planned Provider: [facility] [place], VISITING NURSES [facility] follow-up note: CM MET WITH PT IN ROOM TO DISCUSS DISCHARGE NEEDS AND PLANNING. CM DISCUSSED AVAILABILITY OF HOME HEALTH, REHAB SERVICES AND MEDICAL EQUIPMENT. PT REFUSES [facility] FACILITY PLACEMENT. PT STATES PLAN TO RETURN HOME. 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 PT WAS ABLE TO AMBULATE SMALL DISTANCES AND TRANSFER SELF FROM BED TO ELECTRIC WHEELCHAIR AT HOME. PT THINKS SHE IS GOING TO BE ABLE TO TRANSFER SELF TO GO BACK HOME. PT WANTS HOME HEALTH RESUMED TO GO HOME. CM EXPRESSED CONCERN OF PT'S CURRENT LEVEL OF FUNCTIONING AND RETURNING HOME. PT DENIES HAVING FRIENDS OR FAMILY TO ASSIST WITH HER CARE AT HOME BUT IS NOT GOING TO A HALFWAY. PT THINKS SHE WILL NEED AN AMBULANCE FOR TRANSPORT HOME HER ELECTRIC WHEELCHAIR IS THERE. CM EXPLAINED TO PT THAT SHE WILL NEED TO DEMONSTRATE WITH THERAPY THE ABILITY TO TRANSFER AND SIT IN CHAIR FOR DISCHARGE. PT STATED UNDRESTANDING. CHOICE FOR [facility] ON [place] VISITING NURSES HOME HEALTH SIGNED. 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 PT REFUSED NURSING FACILITY PLACEMENT. PT WILL NEED TO DEMONSTRATE ABILITY TO TRANSFER AND SIT IN CHAIR FOR DISCHARGE SHE HAS ELECTRIC WHEELCHAIR AT HOME. CM TO ARRANGE HOME HEALTH RESUMPTION WITH [facility] ON [facility] VISITING NURSES AGENCY IN [place] FOR DISCHARGE HOME. CM TO CONTINUE TO FOLLOW AND ASSIST NEEDED. Sandor Carrasquillo, CASE MANAGEMENT DCP- Discharge Planning Updated by [id number]: Aleisha Monroe on 05/19/19 7:[address] Patient Name: TROY HAYWOOD Admission Status: ER Accout number: [id number] Admission Date: 05-14-2019 : 1955 Admission Diagnosis: Attending: FABIO PINEDA Current LOS: 5 Anticipated DC Date: Planned Disposition: Home or Self Care Primary Insurance: MEDICAID [place] Discharge Planning Comments: CM met with patient and daughter to complete initial dc planning assessment. Patient recently extubated earlier today. CM educated patient on the CM role and verbal consent given by patient to complete assessment. Patient lives at home with her two young grand-daughters where she is independent with her care. At discharge patient plans to return home and feels this is a safe discharge. CM discussed availability of home health, rehab services, and medical equipment. Patient has Home 02 and HH with unknown providers. CM will f/u with patient @ later date to see if she is able to give providers. Patient denied known discharge needs at this time. CM will continue to follow and will assist as needed with dc plans/needs. Automated Cutting Machine Operator: Aleisha Monroe DCPIA - Discharge Planning Initial Assessment Updated by [id number]: Sandor Carrasquillo on 05/28/19 9:36 am * How many steps to enter\\exit or inside your home? * PCP uncertain ? * Pharmacy [place] * Preadmission Environment Home with Family * ADLs Independent * Other Equipment HOME 02, WALKER, SCOOTER, BSC, SC * List name and contact numbers for known caregivers / representatives who currently or will assist patient after discharge: CHEPE SUN - DAUGHTER- [phone] HOUSTON SALGADO, DTR - [phone] * Verbal permission to speak to the caregivers and representatives has been obtained from the patient. Yes * Community resources currently utilized Home Health * Please name any agencies selected above. [facility] * Additional services required to return to the preadmission environment? No * Can the patient safely return to the preadmission environment? Yes * Has this patient been hospitalized within the prior 30 days at any hospital? No External Providers External Provider: [facility] Next Contact Date: 06/09/2019 Service Request Date: Service Type: Resolution: Reviewer: Comments: Coverage Notice Reviewer: [id number] Carrasquillo Notice Issued Date-Time: 05/25/2019 14:05 Notice Type: Patient Choice Letter Notice Delivered To: Patient Relationship to Patient: Boarding House Cook Name: Delivery Method: HAND - Hand Delivered Marry Days: Prior Verbal Notification: Recipient Understood Notice: Yes Recipient Signature: Yes Med Rec Note Co-signed by Attending: Coverage Notice Comment: [facility]- VISITING NURSES [facility] ([facility]) Reviewer: [id number] Carrasquillo Notice Issued Date-Time: 05/31/2019 14:50 Notice Type: Patient Choice Letter Notice Delivered To: Patient Relationship to Patient: Boarding House Cook Name: Delivery Method: HAND - Hand Delivered Marry Days: Prior Verbal Notification: Recipient Understood Notice: Yes Recipient Signature: Yes Med Rec Note Co-signed by Attending: Coverage Notice Comment: [facility] Last DP export: 06/08/19 7:19 Patient Name: TROY HAYWOOD Page [id number] at 0946 All edits/amendments must be made on the electronic document DICTATION DATE: 06/09/19945 HEAVY EQUIPMENT OPERATOR: MISHEL 06/09/19945 RPT#: [id number] DC DATE: STATUS: ADM IN [facility] [address] [place] [address] END OF REPORT
[2019-06-09 13:04] VITALS: BP 109/52
--- NOTE | 2019-06-09 13:19 | NUR ---
OT NOTE: PT DOING A LITTLE BETTER TODAY. BED MOB WITH MIN/MOD ASSIST; EXS WHILE ON EOB WITH FEWER REST BREAKS. ABLE TO TAKE A FEW SIDE STEPS WITH WALKER AND MIN ASSIST. STILL SCOOTING FEET VS PICKING THEM UP. TOLERATING STANDING FOR LONGER PERIOD OF TIME. CONT TO REQUIRE EXTENSIVE ASSIST WITH ALL ADLS; INSTRUCTED PT TO PRACTICE ROLLING FROM SIDE TO SIDE IN BED TO GET PRESSURE OFF OF R SIDE. PT STATES THAT SHE HAS BEEN DOING EXS IN BED. SAÚL ESCAMILLA, OTR/L
--- NOTE | 2019-06-09 15:48 | NUR ---
OT NOTE: PT COMPLETED UB HYGIENE TASKS WITH MIN A. PT COMPLETED BUE AROM AXS. PT COMPLETED BED MOB WITH MOD/MAX A. THANK YOU,BLADIMIR MANCERA
--- NOTE | 2019-06-09 16:07 | MORECARE ---
CASE MANAGEMENT DISCHARGE SUMMARY PATIENT: TROY HAYWOOD UNIT: [id number] ADM DATE: 05/14/19 AGE: 64 : 57 SEX: F ROOM/BED: D.2140 AUTHOR: DAYDAY,DOC PHYSICIAN: REFERRING PHYSICIAN: FABIO PINEDA MD DATE OF SERVICE: 06/09/19 Discharge Plan Patient Name: TROY HAYWOOD Facility: [facility]:[place] : 1955 Planned Disposition: Nursing Facility [facility] Cert Anticipated Discharge Date: 06/02/19 Discharge Date: Expected LOS: 19 Initial Reviewer: [id number] Initial Review Date: 05/19/2019 Generated: 06/09/19 5:07 pm DCP- Discharge Planning Updated by [id number]: Sandor Carrasquillo on 06/04/19 4:[address] Patient Name: TROY HAYWOOD Encounter No: [id number] : 1955 Primary Insurance: [place]ID [place] Anticipated DC Date: 06-02-2019 Planned Disposition: Nursing Facility [facility] Cert External Planned Provider: TO BE DETERMINED DCP follow-up note: CM SPOKE TO PT AND DAUGHTER CHEPE, IN ROOM. PT IS AND FOR PAST 10 YEARS, BUT NOT LEGALLY. THEY CANNOT QUALIFY FOR MEDICAID FOR PIT CRANE OPERATOR CARE DUE TO NOT HAVING SPOUSE FINANICAL INFORMATION. PT AND DAUGHTER BOTH STATE THAT THEY DO NOT WANT TO PUT PT INTO FDC CUSTODIAL CARE WHERE SHE WILL JUST LAY IN THE BED. THEY DO NOT WANT FURTHER CUSTODIAL REFERRALS FAXED OUT. CM DISCUSSED THAT PT IS STABLE FOR DISCHARGE MEDICALLY. PT'S DAUGHTER REPORTS PT IS NOT HAVING BOWEL MOVEMENTS AND THAT THE FECES COMING OUT IS COMING AROUND AN IMPACTION AND NO ONE IS ADDRESSING THIS. CM NOTIFIED TOBY THOMAS WHO PROVIDED ORDERS FOR MEDICATION TO TREAT CONDITION. BEDSIDE NURSE NOTIFIED. PT'S DAUGHTER PROVIDED CM WITH 77 PAGES AND ASKED CM TO FAX TO [facility] FOR FINANCIAL ASSIST[facility] REGARDING REHAB SERVICES FOR PT. CM FAXED TO [facility] FINANCIAL ASSISTANCE PROGRAM AT [phone]. PT'S DAUGHTER ADVISED THAT IF APPROVED, PT WILL HAVE TO GO TO A [facility] FOR REHAB. PT WAS DECLINED FDC CARE PLACEMENT AT [place]; PT AND FAMILY DECLINE TO HAVE FURTHER REFERRALS SENT OUT. FAMILY IS TRYING TO SECURE FINANCIAL ASSISTANCE FOR REHAB SERVICES THROUGH [facility]. CM TO CONTINUE TO FOLLOW AND ASSIST. ROSANNA Montaño MANAGEMENT DCP- Discharge Planning Updated by [id number]: Sandor Carrasquillo on 06/04/19 11:[address] Patient Name: TROY HAYWOOD Encounter No: [id number] : 1955 Primary Insurance: [place] Anticipated DC Date: 06-02-2019 Planned Disposition: Nursing Facility [facility] Cert External Planned Provider: WAITING FAMILY DECISION DCP follow-up note: CM RECEIVED CALL FROM ANNIE OF [facility] WHO ADVISED CM THAT PT HAS BEEN FIANCIALLY DENIED FOR PLACEMENT. CM SPOKE TO PT IN ROOM WHO ADVISED THAT SHE UNDERSTOOD THEY WERE JUST GOING TO LEAVE HER LAYING IN BED FOR A MONTH AND NOT GIVE HER ANY REHAB SERVICES. CM EXPLAINED THAT MEDICAID DOES NOT PAY FOR REHAB SERVICES, ONLY PIT CRANE OPERATOR CARE AND PT WOULD RECEIVE WHAT THEY CALL "RESTORATIVE CARE" FROM STAFF AT ANY CUSTODIAL, NOT THERAPY SERVICES. PT STATES SHE IS NOW ABLE TO STAND UP WITH THERAPY HERE. CM EXPLAINED THAT PT IS GETTING 8 TO 16 MINUTES OF THERAPY PER DAY AND THAT ALTHOUGH CM WAS HAPPY WITH PROGRESSION, PT IS MEDICALLY STABLE TO LEAVE THE HOSPITAL AND THAT SHE WOULD RECEIVE MORE THERAPY AT HOME WITH HOME HEALTH THAN IN THIS ACUTE HOSPITAL SETTING. PT STATES SHE IS NOT SURE WHAT HAPPENED, THAT CHEPE IS TAKING CARE OF THIS FOR HER AND THAT CHEPE WILL BE TO THE HOSPITAL IN A LITTLE WHILE TO SPEAK TO CM; PT BELIVES THAT CHEPE IS AGAIN WORKING ON TRYING TO GET [facility] REHAB CARE THROUGH THE [place]. PT HAS BEEN FINANCIALLY DECLINED FOR [facility]DC CARE PLACEMENT BY [facility]. PT DEFERRING PLANNING TO HER DAUGHTER, CHEPE. CM WAITING FAMILY TO ARRIVE TO DISCUSS FURTHER DISCHARGE PLANNING. ROSANNA Montaño DCP- Discharge Planning Updated by [id number]: Sandor Carrasquillo on 06/03/19 7:[address] Patient Name: TROY HAYWOOD Encounter No: [id number] : 1955 Primary Insurance: [place] Anticipated DC Date: 06-02-2019 Planned Disposition: Nursing Facility [facility] Cert External Planned Provider[facility] PIT CRANE OPERATOR CARE MEDICAID BED DISCHARGE PLANNING NOTE: CM FAXED REFERRAL UPDATE TO [facility] AT [phone]. CM WAITING [facility]ATION [facility] FOR [facility] OPERATOR CARE. WAITING FAMILY TO PROVIDE FINANCIAL INFORMATION FOR FDC CARE MEDICAID APPLICATION TO FACILITY. Sandor Carrasquillo CASE MANAGEMENT DCP- Discharge Planning Updated by [id number]: Sandor Carrasquillo on 06/02/19 3:[address] Patient Name: TROY HAYWOOD Encounter No: [id number] : 1955 Primary Insurance: [place] Anticipated DC Date: 06-02-2019 Planned Disposition: Nursing Facility [facility] Cert External Planned Provider: [facility], FDC [facility] MEDICAID BED DCP follow-up note: CM FAXED REFERRAL UPDATE TO [facility] AT [phone]. CM WAITING ADMISSION DETERMINATION FROM [facility] FOR PIT CRANE OPERATOR CARE. Sandor Carrasquillo, CASE MANAGEMENT Appended by Sandor Carrasquillo on 06/02/2019 16:50 VELVET WEAVER: CM RECEIVED CALL FROM LUIS OF [facility], , THEY RECEIVED THE UPDATE BY FAX AND WILL CONTACT FAMILY REGARDING FINANCIALS. LUIS REPORTS THEY ARE STILL WAITING ON NURSING TO ACCEPT FOR PIT CRANE OPERATOR CARE AND WILL ALSO NEED FINANCIAL CLEARANCE TO ENTER THE FACILITY. CM WAITING ADMISSION DETERMINATION FROM [facility] FOR PIT CRANE OPERATOR CARE[facility]TA[facility] FAMILY TO ASSIST WITH FINANCIAL INFORMATION FOR PIT CRANE OPERATOR CARE MEDICAID APPLICATION. ROSANNA Montaño DCP- Discharge Planning Updated by [id number]: Sandor Carrasquillo on 06/01/19 4:[address] Patient Name: TROY HAYWOOD Encounter No: [id number] : 1955 Primary Insurance: [place] Anticipated DC Date: 06-02-2019 Planned Disposition: Nursing Facility [facility] Cert External Planned Provider: [facility], PIT CRANE OPERATOR CARE MEDICAID BED DCP follow-up note: CM MET WITH PT AND DAUGHTER HOUSTON, WHO HAS MADE IT FROM [place]. UPDATE PROVIDED. CM CALLED [facility] DALE INFORMED CM THAT REFERRAL FROM AND [facility] WAS RECEIVED, STAFF IN MEETING TODAY AND THEY WILL FINISH ADMISSION REVIEW TOMORROW, 06-02-19. CM NOTIFIED PT AND DAUGHTER IN ROOM. CM WAITING ADMISSION DETERMINATION FROM [facility] FOR FDC CARE. Sandor Carrasquillo CASE MANAGEMENT DCP- Discharge Planning Updated by [id number]: Sandor Carrasquillo on 05/31/19 3:[address] Patient Name: TROY HAYWOOD Encounter No: [id number] : 1955 Primary Insurance: [place] Anticipated DC Date: 06-01-2019 Planned Disposition: Nursing Facility [facility] Cert External Planned Provider: [facility] PIT CRANE OPERATOR CARE MEDICAID BED DCP follow-up note: AFTER SEVERAL VISITS WITH PT IN ROOM, PHONE CALLS WITH DAUGHTERS, [facility] AND [facility], PT DECIDED TO CONSENT TO 30 DAYS OF PIT CRANE OPERATOR CARE AT [facility] AFTER PT'S DACE, WITH AIDE OF [facility], LOCATED [place] WHO WILL CONSIDER PT FOR CARE. PT SIGNED CHOICE. CM FAXED REFERRAL INFORMATION TO [place] AT [phone]. CM WAITING ADMISSION DETERMINATION FROM [facility] FOR FDC CARE. Sandor Carrasquillo CASE MANAGEMENT DCP- Discharge Planning Updated by [id number]: Sandor Carrasquillo on 05/28/19 3:[address] Patient Name: TROY HAYWOOD Encounter No: [id number] : 1955 Primary Insurance: [place] Anticipated DC Date: 06-02-2019 Planned Disposition: Home with [facility] External Planned Provider: [facility] DCP follow-up note: CM RECEIVED CALL FROM PT'S DAUGHTER, CHEPE, WHO VERIFIED THAT SHE WILL COME NEXT WEEK TO STAY WITH PT FOR TWO OR THREE WEEKS TO CARE FOR PT AT HOME. CHEPE WILL DISCUSS WITH HER MOTHER THAT SHE WILL HAVE TO BE ABLE TO STAND AND TRANSFER FOR CHEPE TO CARE FOR HER. CM REVIEWED THERAPY NOTES TO PRESENT. 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 PT HAS BEDSIDE COMMODE AND WHEELCHAIR AT HOME. CHEPE REPORTS NEED OF [facility] RESUMPTION. CHEPE WILL DISCUSS WITH PT AND TRY TO MOTIVATE HER TO MEET THERAPY GOALS PRIOR TO ARRIVAL ON NEXT FRIDAY OR FRIDAY. PT'S DAUGHTER PLANS TO TAKE PT HOME NEXT FRIDAY OR FRIDAY, THEY WILL NEED [facility] RESUMPTION, DENIES FURTHER NEEDS. CM TO FOLLOW AND ASSIST NEEDED. Sandor Carrasquillo, CASE MANAGEMENT DCP- Discharge Planning Updated by [id number]: Sandor Carrasquillo on 05/28/19 2:[address] Patient Name: TROY HAYWOOD Encounter No: [id number] : 1955 Primary Insurance: [place] Anticipated DC Date: Planned Disposition: Nursing Facility [facility] Cert External Planned Provider: TO BE DETERMINED DCP follow-up note: CM SPOKE TO [facility], SHE INFORMED CM THAT UPDATES HAVE BEEN RECEIVED, PT IS NOT MAKING ENOUGH PROGRESS WITH THERAPY THAT THEY DO NOT BELIEVE THAT PT WILL BE ABLE TO ACHIEVE THERAPY GOALS IN THE REMAINING 10 DAYS OF ACUTE DAYS THAT PT HAS REMAINING. CM NOTIFIED PT AND PROVIDED PT WITH NURSING FACILITY LISTING OF ALL AVAILABLE FACILITIES WITHIN [address] OF [place]. PT WILL SPEAK TO HER DAUGHTER AND NOTIFY CM OF HER CHOICES. CM CALLED [facility], , TWICE; AUTOMATED MESSAGE INFORMED CM THAT THE NUMBER WAS RESTRICTED OR CURRENTLY UNAVAILABLE. CM WAITING PT AND FAMILY TO PROVIDE NURSING FACILITY CHOICES FOR FDC CARE. Sandor Carrasquillo, CASE MANAGEMENT Appended by Sandor Carrasquillo on 05/28/2019 12:07 CDT: CM SPOKE TO PT IN ROOM, NOTIFIED PT THAT CM TRIED AND COULD NOT REACH DAUGHTER HOUSTON VIA PHONE. PT REPORTS SHE SPOKE TO HOUSTON WHO TOLD HER THAT [facility] WILL NOT TAKE HER DUE TO WEIGHT; PT'S DAUGHTER TOLD PT THAT [facility] PROBAB[facility] WILL NOT TAKE HER. PT REPORTS THERE IS ONE IN [place] THAT MIGHT CONSIDER HER. CM OFFERED CHOICE FORM FOR SIGNATURE SO THAT CM COULD SEND REFERRALS AND BEGIN CALLING TO FIND PLACEMENT. PT REFUSED AND STATES SHE HAS A DAUGHTER, CHEPE, WHO IS A REGISTERED NURSE, THAT MAY BE COMING TO TAKE CARE OF PT AT HOME. PT'S DAUGHTER HOUSTON IS CALLING DAUGHTER CHEPE TO DISCUSS THE OPTION. PT STATES SHE WILL LET CM KNOW THE OUTCOME AND IF SHE WANTS CM TO EXPLORE CUSTODIAL CARE FOR HER. CM WAITING PT AND FAMILY TO PROVIDE NURSING FACILITY CHOICES AND FOR PT TO SIGN CONSENT FOR CUSTODIAL PLACEMENT. PT IS NOW HOPEFUL THAT HER DAUGHTER WHO IS A REGISTERED NURSE WILL COME AND STAY WITH PT AND TAKE CARE OF HER AT HOME. SANDOR CARRASQUILLO, CASE MANAGEMENT Appended by Sandor Carrasquillo on 05/28/2019 14:27 CDT: CM RECEIVED MESSAGE THAT PT WANTS TO SEE CM. CM MET WITH PT IN ROOM WHO INFORMED CM THAT SHE HIS NOT GOING TO A CUSTODIAL, THAT HER DAUGHTER, CHEPE, WHO IS A NURSE, WILL BE HERE NEXT FRIDAY TO TAKE HER HOME AND WILL TAKE CARE OF PT AT HOME. PT ASKED FOR [facility] RESUMPTION. CM DISCUSSED POSSIBLE NEED OF DEBORAH LIFT AND ASKED ABOUT ADDITIONAL EQUIPMENT. PT THINKS BY NEXT WEEK, SHE WILL BE ABLE TO TRANSFER WITHOUT AIDE OF LIFT DEVICE. CM NOTIFIED DR. FREEDMAN WHO INFORMED CM THAT HE WILL ORDER BLOOD GAS ON FRIDAY TO DETERMINE RESPIRATORY DISCHARGE NEEDS AT THAT TIME. PT HAS SIGNED RIGHT OF CHOICE FOR [facility] ALREADY. PT REPORTS HER DAUGHTER, WHO IS A REGISTERED NURSE, WILL BE HERE FRIDAY OF NEXT WEEK TO TAKE CARE OF PT AT HOME. PT PLANS TO DISCHARGE HOME WITH FAMILY AND [facility]. CM TO FOLLOW AND ASSIST NEEDED. ROSANNA MONTAÑO DCP- Discharge Planning Updated by [id number]: Sandor Carrasquillo on 05/28/19 7:[address] Patient Name: TROY HAYWOOD Encounter No: [id number] : 1955 Primary Insurance: [place] Anticipated DC Date: Planned Disposition: Inpatient Rehab External Planned Provider: [facility] DCP follow-up note: CM FAXED REFERRAL UPDATE TO [facility] AT [phone]. CM WAITING ADMISSION DETERMINATION FROM [facility] IN [place]. ROSANNA Montaño DCP- Discharge Planning Updated by [id number]: Sandor Carrasquillo on 05/27/19 2:[address] Patient Name: TROY HAYWOOD Encounter No: [id number] : 1955 Primary Insurance: [place] Anticipated DC Date: Planned Disposition: Inpatient Rehab External Planned Provider: [facility] DCP follow-up note: CM FAXED REFERRAL UPDATE TO [facility] AT [phone]. CM WAITING ADMISSION DETERMINATION FROM [facility] IN [place]. Sandor Carrasquillo CASE MANAGEMENT Appended by Sandor Carrasquillo on 05/27/2019 14:41 CDT: CM CALLED [facility], , LEFT MESSAGE ASKING FOR UPDATE ON REFERRAL AND TO KNOW IF THEY ARE STILL CONSIDERING PT FOR REHAB. CM WAITING ADMISSION DETERMINATION FROM [facility] IN [place]. Sandor Carrasquillo, CASE MANAGEMENT DCP- Discharge Planning Updated by [id number]: Jesica Cartagena on 05/26/19 4:[address] Patient requested Trapeze bar to allow her to sit up in hospital bed. CM spoke Dr. Lawson and obtained approval for Trapeze bar. CM notified Radha in materials management of request for Trapeze bar. CM completed and gave Radha the order form for the Trapeze bar. Trapeze bar will be delivered. CM notified patient's CM, Christiano Carrasquillo, on status of Trapeze bar. DCP- Discharge Planning Updated by [id number]: Sandor Carrasquillo on 05/26/19 3:[address] Patient Name: TROY HAYWOOD Encounter No: [id number] : 1955 Primary Insurance: MEDICAID [facility] DC Date: Planned Disposition: Inpatient Rehab External Planned Provider: [facility] IN[facility] DCP follow-up note: CM SPOKE TO PT'S DAUGHTER VIA PHONE, HOUSTON NAOMI, . CM OBTAINED PERMISSION FROM PT TO DISCUSS CARE, TREATMENT AND DISCHARGE PLANNING WITH HOUSTON. HOUSTON INFORMED CM THAT PT WAS IN REHAB AT [facility] LAST YEAR AND THEY WANT REFERRED TO [facility] AGAIN. CHRISTOPHER DISCUSSED PT'S VERY LOW LEVEL OF PHYSICAL CONDITIONING. PT'S DAUGHTER FEELS THAT PT CAN PARTICIPATE WITH THERAPY WITH GOAL TO RETURN HOME PREVIOUS WITH ABILITY TO TRANSFER TO ELECTRIC SCOOTER AND HOME HEALTH FOR CONTINUED HOME SERVICES. HOUSTON VERIFIED THAT PT HAS NO ADULTS ABLE TO LIVE WITH AND ASSIST PT AT HOME AT THIS TIME. HOUSTON ASKED ABOUT [facility] SERVICES THAT MAY TAKE PT AT NO COSTS DUE TO INCOME. CM INFORMED HOUSTON THAT CM WAS NOT FAMILIAR WITH ANY OF THESE PROGRAMS. HOUSTON WOULD LIKE TO HAVE PT EVALUATED FOR REHAB AT [facility] PRIOR TO ANY CONSIDERATION OF CUSTODIAL PLACEMENT PT WILL NOT GET THERAPY THERE. CHRISTOPHER SPOKE TO PT WHO IS IN AGREEMENT WITH PLAN. CM CALLED [facility], , NOTIFIED OF REHAB REQUEST; PT HAS ONLY 24 ACUTE DAYS THAT STARTED IN JANUARY, IT DEPENDS ON HOW MANY HAVE BEEN ALREADY USED, PT'S CONDITION AND NEEDS THAT WOULD HAVE TO BE MET IN THE REMAINING DAYS THAT PT HAS TO USE FOR REHAB . CM FAXED REFERRALINFORMATION TO [facility] WITH CURRENT MAR AT [phone]. CM WAITING ADMISSION DETERMINATION FROM [facility] IN [place]. Sandor Carrasquillo, CASE MANAGEMENT Appended by Sandor Carrasquillo on 05/26/2019 15:24 CDT: CM MET WITH PT, GRANDDAUGHTER, DAUGHTER HOUSTON VIA PHONE WITH CM SALES MANAGER [place], UNIT NURSE SECURITIES VAULT SUPERVISOR, REPIRATORY THERAPIST AND SALES MANAGER [place] OF THERAPY SERVICES REGARDING DISCHARGE PLANNING. CONCERNS OF PT'S PLAN TO GO HOME IN CURRENT CONDITION DISCUSSED. PT AND DAUGHTER HAVE ALREADY ASKED FOR REFERRAL TO [facility] RE[facility], CM HAS SENT IT AND WAITING DETERMINATION. PLAN "B" WAS AGREED TO BE NURSING FACILITY IF NOT ACCEPTED TO [facility] AND THAT CM WOULD ATTEMPT TO FIND ONE THAT MAY DONATE REHAB SERVICES. PT'S DAUGHTER IS RESEARCHING [employer]DING FROM [facility] FOR REHAB SERVICES. CM WAITING ADMISSION DETERMINATION FROM [facility] IN [place]. Sandor Carrasquillo, CASE MANAGEMENT DCP- Discharge Planning Updated by [id number]: Sandor Carrasquillo on 05/25/19 2:[address] Patient Name: TROY HAYWOOD Encounter No: [id number] : 1955 Primary Insurance: MEDICAID [facility] Date: Planned Disposition: Home HEALTH External Planned Provider: [facility] [address], VISITING NURSES [facility] follow-up note: CM MET WITH PT IN ROOM TO DISCUSS DISCHARGE NEEDS AND PLANNING. CM DISCUSSED AVAILABILITY OF HOME HEALTH, REHAB SERVICES AND MEDICAL EQUIPMENT. PT REFUSES [facility] FACILITY PLACEMENT. PT STATES PLAN TO RETURN HOME. 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 PT WAS ABLE TO AMBULATE SMALL DISTANCES AND TRANSFER SELF FROM BED TO ELECTRIC WHEELCHAIR AT HOME. PT THINKS SHE IS GOING TO BE ABLE TO TRANSFER SELF TO GO BACK HOME. PT WANTS HOME HEALTH RESUMED TO GO HOME. CM EXPRESSED CONCERN OF PT'S CURRENT LEVEL OF FUNCTIONING AND RETURNING HOME. PT DENIES HAVING FRIENDS OR FAMILY TO ASSIST WITH HER CARE AT HOME BUT IS NOT GOING TO A CUSTODIAL. PT THINKS SHE WILL NEED AN AMBULANCE FOR TRANSPORT HOME HER ELECTRIC WHEELCHAIR IS THERE. CM EXPLAINED TO PT THAT SHE WILL NEED TO DEMONSTRATE WITH THERAPY THE ABILITY TO TRANSFER AND SIT IN CHAIR FOR DISCHARGE. PT STATED UNDRESTANDING. CHOICE FOR [facility] [address] VISITING NURSES HOME HEALTH SIGNED. 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 PT REFUSED NURSING FACILITY PLACEMENT. PT WILL NEED TO DEMONSTRATE ABILITY TO TRANSFER AND SIT IN CHAIR FOR DISCHARGE SHE HAS ELECTRIC WHEELCHAIR AT HOME. CM TO ARRANGE HOME HEALTH RESUMPTION WITH [facility] [address] VISITING NURSES AGENCY IN [place] FOR DISCHARGE HOME. CM TO CONTINUE TO FOLLOW AND ASSIST NEEDED. Sandor Carrasquillo, CASE MANAGEMENT DCP- Discharge Planning Updated by [id number]: Aleisha Monroe on 05/19/19 7:[address] Patient Name: TROY HAYWOOD Admission Status: ER Accout number: [id number] Admission Date: 05-14-2019 : 1955 Admission Diagnosis: Attending: FABIO PINEDA Current LOS: 5 Anticipated DC Date: Planned Disposition: Home or Self Care Primary Insurance: [place] Discharge Planning Comments: CM met with patient and daughter to complete initial dc planning assessment. Patient recently extubated earlier today. CM educated patient on the CM role and verbal consent given by patient to complete assessment. Patient lives at home with her two young grand-daughters where she is independent with her care. At discharge patient plans to return home and feels this is a safe discharge. CM discussed availability of home health, rehab services, and medical equipment. Patient has Home 02 and HH with unknown providers. CM will f/u with patient @ later date to see if she is able to give providers. Patient denied known discharge needs at this time. CM will continue to follow and will assist as needed with dc plans/needs. Car Mechanic Helper: Aleisha Monroe DCPIA - Discharge Planning Initial Assessment Updated by [id number]: Sandor Carrasquillo on 05/28/19 9:36 am * How many steps to enter\\exit or inside your home? * PCP uncertain ? * [facility] * Preadmission Environment Home with Family * ADLs Independent * Other Equipment HOME 02, WALKER, SCOOTER, BSC, SC * List name and contact numbers for known caregivers / representatives who currently or will assist patient after discharge: CHEPE SUN - DAUGHTER- [phone] HOUSTON SALGADO, DTR - [phone] * Verbal permission to speak to the caregivers and representatives has been obtained from the patient. Yes * Community resources currently utilized Home Health * Please name any agencies selected above. [facility] * Additional services required to return to the preadmission environment? No * Can the patient safely return to the preadmission environment? Yes * Has this patient been hospitalized within the prior 30 days at any hospital? No External Providers External Provider: OTHER-OTHER Next Contact Date: 06/09/2019 Service Request Date: Service Type: Resolution: Reviewer: Comments: Coverage Notice Reviewer: [id number] Carrasquillo Notice Issued Date-Time: 05/25/2019 14:05 Notice Type: Patient Choice Letter Notice Delivered To: Patient Relationship to Patient: Bar Welder Name: Delivery Method: HAND - Hand Delivered Marry Days: Prior Verbal Notification: Recipient Understood Notice: Yes Recipient Signature: Yes Med Rec Note Co-signed by Attending: Coverage Notice Comment: [facility] Reviewer: [id number] Carrasquillo Notice Issued Date-Time: 05/31/2019 14:50 Notice Type: Patient Choice Letter Notice Delivered To: Patient Relationship to Patient: Bar Welder Name: Delivery Method: HAND - Hand Delivered Marry Days: Prior Verbal Notification: Recipient Understood Notice: Yes Recipient Signature: Yes Med Rec Note Co-signed by Attending: Coverage Notice [facility] Last DP export: 06/09/19 8:46 Patient Name: TROY HAYWOOD Page [id number] at 1607 All edits/amendments must be made on the electronic document DICTATION DATE: 06/09/191606 FIELD CROP FARMWORKER: MISHEL 06/09/19 160 RPT#: [id number] DC DATE: STATUS: ADM IN [facility] [address] [place] [address] END OF REPORT
--- NOTE | 2019-06-09 16:15 | MORECARE ---
CASE MANAGEMENT DISCHARGE SUMMARY PATIENT: TROY HAYWOOD UNIT: [id number] ADM DATE: 05/14/19 AGE: 64 : 57 SEX: F ROOM/BED: D.2140 AUTHOR: DAYDAY,DOC PHYSICIAN: REFERRING PHYSICIAN: FABIO PINEDA MD DATE OF SERVICE: 06/09/19 Discharge Plan Patient Name: TROY HAYWOOD Facility: [facility]:[place] : 1955 Planned Disposition: Nursing Facility YUN Cert Anticipated Discharge Date: 06/10/19 Discharge Date: Expected LOS: 27 Initial Reviewer: [id number] Initial Review Date: 05/19/2019 Generated: 06/09/19 5:14 pm DCP- Discharge Planning Updated by [id number]: Sandor Carrasquillo on 06/04/19 4:[address] Patient Name: TROY HAYWOOD Encounter No: [id number] : 1955 Primary Insurance: [place]ID [place] Anticipated DC Date: 06-02-2019 Planned Disposition: Nursing Facility [facility] Cert External Planned Provider: TO BE DETERMINED DCP follow-up note: CM SPOKE TO PT AND DAUGHTER CHEPE, IN ROOM. PT IS AND FOR PAST 10 YEARS, BUT NOT LEGALLY. THEY CANNOT QUALIFY FOR MEDICAID FOR ASSISTANT PROFESSOR OF NURSING CARE DUE TO NOT HAVING SPOUSE FINANICAL INFORMATION. PT AND DAUGHTER BOTH STATE THAT THEY DO NOT WANT TO PUT PT INTO ASSISTANT PROFESSOR OF NURSING PENITENTIARY CARE WHERE SHE WILL JUST LAY IN THE BED. THEY DO NOT WANT FURTHER PENITENTIARY REFERRALS FAXED OUT. CM DISCUSSED THAT PT IS STABLE FOR DISCHARGE MEDICALLY. PT'S DAUGHTER REPORTS PT IS NOT HAVING BOWEL MOVEMENTS AND THAT THE FECES COMING OUT IS COMING AROUND AN IMPACTION AND NO ONE IS ADDRESSING THIS. CM NOTIFIED TOBY THOMAS WHO PROVIDED ORDERS FOR MEDICATION TO TREAT CONDITION. BEDSIDE NURSE NOTIFIED. PT'S DAUGHTER PROVIDED CM WITH 77 PAGES AND ASKED CM TO FAX TO [facility] FOR FINANCIAL ASSISTANCE REGARDING REHAB SERVICES FOR PT. CM FAXED TO [facility] FINANCIAL ASSISTANCE PROGRAM AT [phone]. PT'S DAUGHTER ADVISED THAT IF APPROVED, PT WILL HAVE TO GO TO A [facility] FOR REHAB. PT WAS DECLINED SENIOR CARE CARE PLACEMENT AT [facility]; PT AND FAMILY DECLINE TO HAVE FURTHER REFERRALS SENT OUT. FAMILY IS TRYING TO SECURE FINANCIAL ASSISTANCE FOR REHAB SERVICES THROUGH [facility]. CM TO CONTINUE TO FOLLOW AND ASSIST. ROSANNA Montaño MANAGEMENT DCP- Discharge Planning Updated by [id number]: Sandor Carrasquillo on 06/04/19 11:[address] Patient Name: TROY HAYWOOD Encounter No: [id number] : 1955 Primary Insurance: [place]ID [place] Anticipated DC Date: 06-02-2019 Planned Disposition: Nursing Facility [facility] Cert External Planned Provider: WAITING FAMILY DECISION DCP follow-up note: CM RECEIVED CALL FROM ANNIE OF [facility] WHO ADVISED CM THAT PT HAS BEEN FIANCIALLY DENIED FOR PLACEMENT. CM SPOKE TO PT IN ROOM WHO ADVISED THAT SHE UNDERSTOOD THEY WERE JUST GOING TO LEAVE HER LAYING IN BED FOR A MONTH AND NOT GIVE HER ANY REHAB SERVICES. CM EXPLAINED THAT MEDICAID DOES NOT PAY FOR REHAB SERVICES, ONLY SENIOR CARE CARE AND PT WOULD RECEIVE WHAT THEY CALL "RESTORATIVE CARE" FROM STAFF AT ANY PENITENTIARY, NOT THERAPY SERVICES. PT STATES SHE IS NOW ABLE TO STAND UP WITH THERAPY HERE. CM EXPLAINED THAT PT IS GETTING 8 TO 16 MINUTES OF THERAPY PER DAY AND THAT ALTHOUGH CM WAS HAPPY WITH PROGRESSION, PT IS MEDICALLY STABLE TO LEAVE THE HOSPITAL AND THAT SHE WOULD RECEIVE MORE THERAPY AT HOME WITH HOME HEALTH THAN IN THIS ACUTE HOSPITAL SETTING. PT STATES SHE IS NOT SURE WHAT HAPPENED, THAT CHPEE IS TAKING CARE OF THIS FOR HER AND THAT CHEPE WILL BE TO THE HOSPITAL IN A LITTLE WHILE TO SPEAK TO CM; PT BELIVES THAT CHEPE IS AGAIN WORKING ON TRYING TO GET [facility] REHAB CARE THROUGH THE [facility]. PT HAS BEEN FINANCIALLY DECLINED FOR SENIOR CARE CARE PLACEMENT BY [facility]. PT DEFERRING PLANNING TO HER DAUGHTER, CHEPE. CM WAITING FAMILY TO ARRIVE TO DISCUSS FURTHER DISCHARGE PLANNING. ROSANNA Montaño DCP- Discharge Planning Updated by [id number]: Sandor Carrasquillo on 06/03/19 7:[address] Patient Name: TROY HAYWOOD Encounter No: [id number] : 1955 Primary Insurance: [place] Anticipated DC Date: 06-02-2019 Planned Disposition: Nursing Facility [facility] Cert External Planned Provider: [facility], SENIOR CARE CARE MEDICAID BED DISCHARGE PLANNING NOTE: CM FAXED REFERRAL UPDATE TO [facility] AT [phone]. CM WAITING ADMISSION DETERMINATION FROM [facility] FOR ASSISTANT PROFESSOR OF NURSING CARE. WAITING FAMILY TO PROVIDE FINANCIAL INFORMATION FOR ASSISTANT PROFESSOR OF NURSING CARE MEDICAID APPLICATION TO FACILITY. Sandor Carrasquillo CASE MANAGEMENT DCP- Discharge Planning Updated by [id number]: Sandor Carrasquillo on 06/02/19 3:[address] Patient Name: TROY HAYWOOD Encounter No: [id number] : 1955 Primary Insurance: [place] Anticipated DC Date: 06-02-2019 Planned Disposition: Nursing Facility [facility] Cert External Planned Provider: [facility], SENIOR CARE [facility] MEDICAID BED DCP follow-up note: CM FAXED REFERRAL UPDATE TO [facility] AT [phone]. CM WAITING ADMISSION DETERMINATION FROM [facility] FOR ASSISTANT PROFESSOR OF NURSING CARE. Sandor Carrasquillo, CASE MANAGEMENT Appended by Sandor Carrasquillo on 06/02/2019 16:50 THERMOMETER TESTER: CM RECEIVED CALL FROM LUIS OF [facility], , THEY RECEIVED THE UPDATE BY FAX AND WILL CONTACT FAMILY REGARDING FINANCIALS. LUIS REPORTS THEY ARE STILL WAITING ON NURSING TO ACCEPT FOR SENIOR CARE CARE AND WILL ALSO NEED FINANCIAL CLEARANCE TO ENTER THE FACILITY. CM WAITING ADMISSION DETERMINATION FROM [facility] FOR ASSISTANT PROFESSOR OF NURSING CARE. [facility] TO ASSIST WITH FINANCIAL INFORMATION FOR ASSISTANT PROFESSOR OF NURSING CARE MEDICAID APPLICATION. ROSANNA Montaño DCP- Discharge Planning Updated by [id number]: Sandor Carrasquillo on 06/01/19 4:[address] Patient Name: TROY HAYWOOD Encounter No: [id number] : 1955 Primary Insurance: [place] Anticipated DC Date: 06-02-2019 Planned Disposition: Nursing Facility [facility] Cert External Planned Provider: [facility], ASSISTANT PROFESSOR OF NURSING CARE MEDICAID BED DCP follow-up note: CM MET WITH PT AND DAUGHTER HOUSTON, WHO HAS MADE IT FROM [place]. UPDATE PROVIDED. CM CALLED [facility] DALE INFORMED CM THAT REFERRAL FROM AND [facility] WAS RECEIVED, STAFF IN MEETING TODAY AND THEY WILL FINISH ADMISSION REVIEW TOMORROW, 06-02-19. CM NOTIFIED PT AND DAUGHTER IN ROOM. CM WAITING ADMISSION DETERMINATION FROM [facility] FOR SENIOR CARE CARE. Sadnor Carrasquillo CASE MANAGEMENT DCP- Discharge Planning Updated by [id number]: Sandor Carrasquillo on 05/31/19 3:[address] Patient Name: TROY HAYWOOD Encounter No: [id number] : 1955 Primary Insurance: [place] Anticipated DC Date: 06-01-2019 Planned Disposition: Nursing Facility [facility] Cert External Planned Provider: [facility], ASSISTANT PROFESSOR OF NURSING CARE MEDICAID BED DCP follow-up note: AFTER SEVERAL VISITS WITH PT IN ROOM, PHONE CALLS WITH DAUGHTERS, [facility] AND [facility], PT DECIDED TO CONSENT TO 30 DAYS OF SENIOR CARE CARE AT [facility] AFTER PT'S DACE, WITH AIDE OF [facility] WHO WILL CONSIDER PT FOR CARE. PT SIGNED CHOICE. CM FAXED REFERRAL INFORMATION TO [facility] AT [phone]. CM WAITING ADMISSION DETERMINATION FROM [facility] FOR ASSISTANT PROFESSOR OF NURSING CARE. Sandor Carrasquillo CASE MANAGEMENT DCP- Discharge Planning Updated by [id number]: Sandor Carrasquillo on 05/28/19 3:[address] Patient Name: TROY HAYWOOD Encounter No: [id number] : 1955 Primary Insurance: [place] Anticipated DC Date: 06-02-2019 Planned Disposition: Home with [facility] External Planned Provider: [employer] [facility] DCP follow-up note: CM RECEIVED CALL FROM PT'S DAUGHTER, CHEPE, WHO VERIFIED THAT SHE WILL COME NEXT WEEK TO STAY WITH PT FOR TWO OR THREE WEEKS TO CARE FOR PT AT HOME. CHEPE WILL DISCUSS WITH HER MOTHER THAT SHE WILL HAVE TO BE ABLE TO STAND AND TRANSFER FOR CHEPE TO CARE FOR HER. CM REVIEWED THERAPY NOTES TO PRESENT. 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 PT HAS BEDSIDE COMMODE AND WHEELCHAIR AT HOME. CHEPE REPORTS NEED OF [employer] [facility] RESUMPTION. CHEPE WILL DISCUSS WITH PT AND TRY TO MOTIVATE HER TO MEET THERAPY GOALS PRIOR TO ARRIVAL ON NEXT FRIDAY OR FRIDAY. PT'S DAUGHTER PLANS TO TAKE PT HOME NEXT FRIDAY OR FRIDAY, THEY WILL NEED [facility] RES[facility]TION, DENIES FURTHER NEEDS. CM TO FOLLOW AND ASSIST NEEDED. Sandor Carrasquillo, CASE MANAGEMENT DCP- Discharge Planning Updated by [id number]: Sandor Carrasquillo on 05/28/19 2:[address] Patient Name: TROY HAYWOOD Encounter No: [id number] : 1955 Primary Insurance: [place] Anticipated DC Date: Planned Disposition: Nursing Facility [facility] Cert External Planned Provider: TO BE DETERMINED DCP follow-up note: CM SPOKE TO [facility], SHE INFORMED CM THAT UPDATES HAVE BEEN RECEIVED, PT IS NOT MAKING ENOUGH PROGRESS WITH THERAPY THAT THEY DO NOT BELIEVE THAT PT WILL BE ABLE TO ACHIEVE THERAPY GOALS IN THE REMAINING 10 DAYS OF ACUTE DAYS THAT PT HAS REMAINING. CM NOTIFIED PT AND PROVIDED PT WITH NURSING FACILITY LISTING OF ALL AVAILABLE FACILITIES WITHIN [address] [place]. PT WILL SPEAK TO HER DAUGHTER AND NOTIFY CM OF HER CHOICES. CM CALLED [facility], , TWICE; AUTOMATED MESSAGE INFORMED CM THAT THE NUMBER WAS RESTRICTED OR CURRENTLY UNAVAILABLE. CM WAITING PT AND FAMILY TO PROVIDE NURSING FACILITY CHOICES FOR SENIOR CARE CARE. Sandor Carrasquillo, CASE MANAGEMENT Appended by Sandor Carrasquillo on 05/28/2019 12:07 CDT: CM SPOKE TO PT IN ROOM, NOTIFIED PT THAT CM TRIED AND COULD NOT REACH DAUGHTER HOUSTON VIA PHONE. PT REPORTS SHE SPOKE TO [facility] WHO TOLD HER THAT [facility] WILL NOT TAKE HER DUE TO WEIGHT; PT'S DAUGHTER TOLD PT THAT [facility] PROB[facility] WILL NOT TAKE HER. PT REPORTS THERE IS ONE IN [place] THAT MIGHT CONSIDER HER. CM OFFERED CHOICE FORM FOR SIGNATURE SO THAT CM COULD SEND REFERRALS AND BEGIN CALLING TO FIND PLACEMENT. PT REFUSED AND STATES SHE HAS A DAUGHTER, CHEPE, WHO IS A REGISTERED NURSE, THAT MAY BE COMING TO TAKE CARE OF PT AT HOME. PT'S DAUGHTER HOUSTON IS CALLING DAUGHTER CHEPE TO DISCUSS THE OPTION. PT STATES SHE WILL LET CM KNOW THE OUTCOME AND IF SHE WANTS CM TO EXPLORE PENITENTIARY CARE FOR HER. CM WAITING PT AND FAMILY TO PROVIDE NURSING FACILITY CHOICES AND FOR PT TO SIGN CONSENT FOR PENITENTIARY PLACEMENT. PT IS NOW HOPEFUL THAT HER DAUGHTER WHO IS A REGISTERED NURSE WILL COME AND STAY WITH PT AND TAKE CARE OF HER AT HOME. SANDOR CARRASQUILLO, CASE MANAGEMENT Appended by Sandor Carrasquillo on 05/28/2019 14:27 CDT: CM RECEIVED MESSAGE THAT PT WANTS TO SEE CM. CM MET WITH PT IN ROOM WHO INFORMED CM THAT SHE HIS NOT GOING TO A PENITENTIARY, THAT HER DAUGHTER, CHEPE, WHO IS A NURSE, WILL BE HERE NEXT FRIDAY TO TAKE HER HOME AND WILL TAKE CARE OF PT AT HOME. PT ASKED FOR [facility] RESUMPTION. CM DISCUSSED POSSIBLE NEED OF DEBORAH LIFT AND ASKED ABOUT ADDITIONAL EQUIPMENT. PT THINKS BY NEXT WEEK, SHE WILL BE ABLE TO TRANSFER WITHOUT AIDE OF LIFT DEVICE. CM NOTIFIED DR. FREEDMAN WHO INFORMED CM THAT HE WILL ORDER BLOOD GAS ON FRIDAY TO DETERMINE RESPIRATORY DISCHARGE NEEDS AT THAT TIME. PT HAS SIGNED RIGHT OF CHOICE FOR [facility] ALREADY. PT REPORTS HER DAUGHTER, WHO IS A REGISTERED NURSE, WILL BE HERE FRIDAY OF NEXT WEEK TO TAKE CARE OF PT AT HOME. PT PLANS TO DISCHARGE HOME WITH FAMILY AND [facility]. CM TO FOLLOW AND ASSIST NEEDED. ROSANNA MONTAÑO DCP- Discharge Planning Updated by [id number]: Sandor Carrasquillo on 05/28/19 7:[address] Patient Name: TROY HAYWOOD Encounter No: [id number] : 1955 Primary Insurance: [place] Anticipated DC Date: Planned Disposition: Inpatient Rehab External Planned Provider: [facility] DCP follow-up note: CM FAXED REFERRAL UPDATE TO [facility] AT [phone]. CM WAITING ADMISSION DETERMINATION FROM [facility]PAT[facility] IN [place]. ROSANNA Montaño DCP- Discharge Planning Updated by [id number]: Sandor Carrasquillo on 05/27/19 2:[address] Patient Name: TROY HAYWOOD Encounter No: [id number] : 1955 Primary Insurance: [place]ID [place] Anticipated DC Date: Planned Disposition: Inpatient Rehab External Planned Provider: [facility] DCP follow-up note: CM FAXED REFERRAL UPDATE TO [facility] AT [phone]. CM WAITING ADMISSION DETERMINATION FROM [facility] IN [place]. Sandor Carrasquillo CASE MANAGEMENT Appended by Sandor Carrasquillo on 05/27/2019 14:41 CDT: CM CALLED [facility], , LEFT MESSAGE ASKING FOR UPDATE ON REFERRAL AND TO KNOW IF THEY ARE STILL CONSIDERING PT FOR REHAB. CM WAITING ADMISSION DETERMINATION FROM [facility]PAT[facility] IN [place]. Sandor Carrasquillo, CASE MANAGEMENT DCP- Discharge Planning Updated by [id number]: Jesica Cartagena on 05/26/19 4:[address] Patient requested Trapeze bar to allow her to sit up in hospital bed. CM spoke Dr. Lawson and obtained approval for Trapeze bar. CM notified Radha in materials management of request for Trapeze bar. CM completed and gave Radha the order form for the Trapeze bar. Trapeze bar will be delivered. CM notified patient's CM, Christiano Carrasquillo, on status of Trapeze bar. DCP- Discharge Planning Updated by [id number]: Sandor Carrasquillo on 05/26/19 3:[address] Patient Name: TROY HAYWOOD Encounter No: [id number] : 1955 Primary Insurance: MEDICAID [facility] DC Date: Planned Disposition: Inpatient Rehab External Planned Provider: [facility] DCP follow-up note: CM SPOKE TO PT'S DAUGHTER VIA PHONE, HOUTSON NAOMI, . CM OBTAINED PERMISSION FROM PT TO DISCUSS CARE, TREATMENT AND DISCHARGE PLANNING WITH HOUSTON. HOUSTON INFORMED CM THAT PT WAS IN REHAB AT [facility] LAST YEAR AND THEY WANT REFERRED TO [facility] AGAIN. CHRISTOPHER DISCUSSED PT'S VERY LOW LEVEL OF PHYSICAL CONDITIONING. PT'S DAUGHTER FEELS THAT PT CAN PARTICIPATE WITH THERAPY WITH GOAL TO RETURN HOME PREVIOUS WITH ABILITY TO TRANSFER TO ELECTRIC SCOOTER AND HOME HEALTH FOR CONTINUED HOME SERVICES. HOUSTON VERIFIED THAT PT HAS NO ADULTS ABLE TO LIVE WITH AND ASSIST PT AT HOME AT THIS TIME. HOUSTON ASKED ABOUT [facility] REHAB SERVICES THAT MAY TAKE PT AT NO COSTS DUE TO INCOME. CM INFORMED HOUSTON THAT CM WAS NOT FAMILIAR WITH ANY OF THESE PROGRAMS. HOUSTON WOULD LIKE TO HAVE PT EVALUATED FOR REHAB AT [facility] PRIOR TO ANY CONSIDERATION OF PENITENTIARY PLACEMENT PT WILL NOT GET THERAPY THERE. CHRISTOPHER SPOKE TO PT WHO IS IN AGREEMENT WITH PLAN. CM CALLED [facility], , NOTIFIED OF REHAB REQUEST; PT HAS ONLY 24 ACUTE DAYS THAT STARTED IN JANUARY, IT DEPENDS ON HOW MANY HAVE BEEN ALREADY USED, PT'S CONDITION AND NEEDS THAT WOULD HAVE TO BE MET IN THE REMAINING DAYS THAT PT HAS TO USE FOR REHAB . CM FAXED REFERRALINFORMATION TO [facility] WITH CURRENT MAR AT [phone]. CM WAITING ADMISSION DETERMINATION FROM [facility] IN [place]. Sandor Carrasquillo, CASE MANAGEMENT Appended by Sandor Carrasquillo on 05/26/2019 15:24 CDT: CM MET WITH PT, GRANDDAUGHTER, DAUGHTER HOUSTON VIA PHONE WITH CM MASH FILTER PRESS OPERATOR, UNIT NURSE MEDICAL OFFICE ADMINISTRATOR, REPIRATORY THERAPIST AND MASH FILTER PRESS OPERATOR OF THERAPY SERVICES REGARDING DISCHARGE PLANNING. CONCERNS OF PT'S PLAN TO GO HOME IN CURRENT CONDITION DISCUSSED. PT AND DAUGHTER HAVE ALREADY ASKED FOR REFERRAL TO [facility] REHAB, CM HAS SENT IT AND WAITING DETERMINATION. PLAN "B" WAS AGREED TO BE NURSING FACILITY IF NOT ACCEPTED TO [facility] AND THAT CM WOULD ATTEMPT TO FIND ONE THAT MAY DONATE REHAB SERVICES. PT'S DAUGHTER IS RESEARCHING [employer] FUNDING FROM [place] FOR REHAB SERVICES. CM WAITING ADMISSION DETERMINATION FROM [facility] IN [place]. Sandor Carrasquillo, CASE MANAGEMENT DCP- Discharge Planning Updated by [id number]: Sandor Carrasquillo on 05/25/19 2:[address] Patient Name: TROY HAYWOOD Encounter No: [id number] : 1955 Primary Insurance: MEDICAID [facility] Date: Planned Disposition: Home HEALTH External Planned Provider: [facility], VISITING NURSES [facility] follow-up note: CM MET WITH PT IN ROOM TO DISCUSS DISCHARGE NEEDS AND PLANNING. CM DISCUSSED AVAILABILITY OF HOME HEALTH, REHAB SERVICES AND MEDICAL EQUIPMENT. PT REFUSES LONG TERM FACILITY PLACEMENT. PT STATES PLAN TO RETURN HOME. 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 PT WAS ABLE TO AMBULATE SMALL DISTANCES AND TRANSFER SELF FROM BED TO ELECTRIC WHEELCHAIR AT HOME. PT THINKS SHE IS GOING TO BE ABLE TO TRANSFER SELF TO GO BACK HOME. PT WANTS HOME HEALTH RESUMED TO GO HOME. CM EXPRESSED CONCERN OF PT'S CURRENT LEVEL OF FUNCTIONING AND RETURNING HOME. PT DENIES HAVING FRIENDS OR FAMILY TO ASSIST WITH HER CARE AT HOME BUT IS NOT GOING TO A PENITENTIARY. PT THINKS SHE WILL NEED AN AMBULANCE FOR TRANSPORT HOME HER ELECTRIC WHEELCHAIR IS THERE. CM EXPLAINED TO PT THAT SHE WILL NEED TO DEMONSTRATE WITH THERAPY THE ABILITY TO TRANSFER AND SIT IN CHAIR FOR DISCHARGE. PT STATED UNDRESTANDING. CHOICE FOR [facility] ON [facility] VISITING NURSES HOME HEALTH SIGNED. 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 PT REFUSED NURSING FACILITY PLACEMENT. PT WILL NEED TO DEMONSTRATE ABILITY TO TRANSFER AND SIT IN CHAIR FOR DISCHARGE SHE HAS ELECTRIC WHEELCHAIR AT HOME. CM TO ARRANGE HOME HEALTH RESUMPTION WITH [facility] ON [facility] VISITING NURSES AGENCY IN [place] FOR DISCHARGE HOME. CM TO CONTINUE TO FOLLOW AND ASSIST NEEDED. Sandor Carrasquillo, CASE MANAGEMENT DCP- Discharge Planning Updated by [id number]: Aleisha Monroe on 05/19/19 7:[address] Patient Name: TROY HAYWOOD Admission Status: ER Accout number: [id number] Admission Date: 05-14-2019 : 1955 Admission Diagnosis: Attending: FABIO PINEDA Current LOS: 5 Anticipated DC Date: Planned Disposition: Home or Self Care Primary Insurance: MED[place]ID [place] Discharge Planning Comments: CM met with patient and daughter to complete initial dc planning assessment. Patient recently extubated earlier today. CM educated patient on the CM role and verbal consent given by patient to complete assessment. Patient lives at home with her two young grand-daughters where she is independent with her care. At discharge patient plans to return home and feels this is a safe discharge. CM discussed availability of home health, rehab services, and medical equipment. Patient has Home 02 and HH with unknown providers. CM will f/u with patient @ later date to see if she is able to give providers. Patient denied known discharge needs at this time. CM will continue to follow and will assist as needed with dc plans/needs. Associate Relations Specialist: Aleisha Monroe DCPIA - Discharge Planning Initial Assessment Updated by [email or web address]: Sandor Carrasquillo on 05/28/19 9:36 am * How many steps to enter\\exit or inside your home? * PCP uncertain ? * Pharmacy [facility] * Preadmission Environment Home with Family * ADLs Independent * Other Equipment HOME 02, WALKER, SCOOTER, BSC, SC * List name and contact numbers for known caregivers / representatives who currently or will assist patient after discharge: CHEPE SUN - DAUGHTER- [phone] HOUSTON SALGADO, DTR - [phone] * Verbal permission to speak to the caregivers and representatives has been obtained from the patient. Yes * Community resources currently utilized Home Health * Please name any agencies selected above. [facility] * Additional services required to return to the preadmission environment? No * Can the patient safely return to the preadmission environment? Yes * Has this patient been hospitalized within the prior 30 days at any hospital? No Coverage Notice Reviewer: [id number] Carrasquillo Notice Issued Date-Time: 05/25/2019 14:05 Notice Type: Patient Choice Letter Notice Delivered To: Patient Relationship to Patient: Psychologist Personnel Name: Delivery Method: HAND - Hand Delivered Marry Days: Prior Verbal Notification: Recipient Understood Notice: Yes Recipient Signature: Yes Med Rec Note Co-signed by Attending: Coverage Notice Comment: [facility]- VISITING NURSES [facility]) Reviewer: [id number] Carrasquillo Notice Issued Date-Time: 05/31/2019 14:50 Notice Type: Patient Choice Letter Notice Delivered To: Patient Relationship to Patient: Psychologist Personnel Name: Delivery Method: HAND - Hand Delivered Marry Days: Prior Verbal Notification: Recipient Understood Notice: Yes Recipient Signature: Yes Med Rec Note Co-signed by Attending: Coverage Notice Comment: [facility] Last DP export: 06/09/19 3:07 Patient Name: TROY HAYWOOD Page [id number] at 1615 All edits/amendments must be made on the electronic document DICTATION DATE: 06/09/191613 [employer] AGENT: MISHEL 06/09/191613 RPT#: [id number] DC DATE: STATUS: ADM IN [facility] [address] [place] [address] END OF REPORT
--- NOTE | 2019-06-09 16:37 | MORECARE ---
CASE MANAGEMENT DISCHARGE SUMMARY PATIENT: TROY HAYWOOD UNIT: [id number] ADM DATE: 05/14/19 AGE: 64 : 57 SEX: F ROOM/BED: D.2140 AUTHOR: DAYDAYDOC PHYSICIAN: REFERRING PHYSICIAN: FABIO PINEDA MD DATE OF SERVICE: 06/09/19 Discharge Plan Patient Name: TROY HAYWOOD Facility: [facility]:[place] : 1955 Planned Disposition: Nursing Facility YUN Cert Anticipated Discharge Date: 06/10/19 Discharge Date: Expected LOS: 27 Initial Reviewer: [id number] Initial Review Date: 05/19/2019 Generated: 06/09/19 5:36 pm Comments DCP- Discharge Planning Updated by [id number]: Sandor Carrasquillo on 06/09/19 3:[address] Patient Name: TROY HAYWOOD Encounter No: [id number] : 1955 Primary Insurance: [place]ID [place] Anticipated DC Date: 06-10-2019 Planned Disposition: Nursing Facility YUN Cert External Planned Provider: FIRST ACCEPTING FACILITY DCP follow-up note: CM SPOKE TO PT AND DAUGHTER, CHEPE, THEY WILL LET CM SEEK INTERMEDIATE PLACEMENT FOR THEM TO CONSIDER BUT STILL DO NOT WANT SHACTOR CARE IF THEY CAN OBTAIN REHAB THROUGH THE [facility]. DAUGHTER ADVISED SHE HAS CONFIRMED RECEIPT OF THE APPLICATION FAXED TO THE [facility] AND IS IN PROCESS OF REVIEW. DAUGHTER ASKED CM TO CHECK INTO REHAB'S THAT MAY HAVE [facility] ASTRID AFFILIATION. CM CALLED [facility], , REQUESTED ASSISTANCE IN MCC CARE PLACEMENT WITH INTENT TO RETURN HOME. CHAR STATES THAT SHE MAY HAVE HOME'S WILL ACCEPT BARIATRIC PATIENT AND WILL ATTEMPT PLACEMENT. CHAR WILL MEET WITH PT LATER TODAY. CM FAXED REFERRAL TO [facility] AT [phone]. CM SPOKE TO TROY MIMS OF [facility], TROY INFORMED CM THAT SHE HAS NO HOMES IN HER GROUP THAT MAY ASSIST WITH PLACEMENT. CM CALLED [facility] [place], WAS ADVISED BY [facility] THAT THEY WILL NOT CONSIDER FOR TREY CARE, THEY ARE NOT AFFILIATED WITH [facility]. CM CALLED [facility], , SPOKE TO CHELO WHO INFORMED CM THAT THEY ARE NOT AFFILIATED WITH [facility] BUT WILL CONSIDER PT FOR TREY REHAB. CM FAXED REFERRAL TO [facility] AT [phone]. CM CALLED [facility] IN [place], , SPOKE TO DHEERAJ WHO REPORTS THEY HAVE NO OPEN REHAB BEDS AND HAVE NO PROJECTED DISCHARGES SOON. THEY DO NOT HAVE WEIGHT LIMITS. DHEERAJ DID NOT WANT REFERRAL FAXED, SHE WILL REPORT TO BREN WHO WILL CHECK WITH THE [facility] PROGRAM REGARDING APPLICATION STATUS AND CALL CM TOMORROW, 06-10-19. CM NOTIFIED PT IN ROOM OF PROGRESS. PT STATES SHE MAY BE ABLE TO TRANSFER SELF AND GO HOME BEFORE CM FINDS REHAB FOR HER. - CM WAITING ADMISSION DETERMINATION FROM [facility] FOR MCC CARE PLACEMENT IN ONE OF HER AFFILIATED NURSING HOMES. - CM WAITING ADMISSION DETERMINATION FROM [facility] FOR [facility] REHAB BED. - CM WAITING RETURN CALL FROM [facility] IN [place] REGARDING TREY REHAB. Sandor Carrasquillo, CASE MANAGEMENT DCP- Discharge Planning Updated by [id number]: Sandor Carrasquillo on 06/04/19 4:[address] Patient Name: TROY AHYWOOD Encounter No: [id number] : 1955 Primary Insurance: [place]ICAID [place] Anticipated DC Date: 06-02-2019 Planned Disposition: Nursing Facility YUN Cert External Planned Provider: TO BE DETERMINED DCP follow-up note: CM SPOKE TO PT AND DAUGHTER CHEPE, IN ROOM. PT IS AND FOR PAST 10 YEARS, BUT NOT LEGALLY. THEY CANNOT QUALIFY FOR MEDICAID FOR MCC CARE DUE TO NOT HAVING SPOUSE FINANICAL INFORMATION. PT AND DAUGHTER BOTH STATE THAT THEY DO NOT WANT TO PUT PT INTO MCC INTERMEDIATE CARE WHERE SHE WILL JUST LAY IN THE BED. THEY DO NOT WANT FURTHER INTERMEDIATE REFERRALS FAXED OUT. CM DISCUSSED THAT PT IS STABLE FOR DISCHARGE MEDICALLY. PT'S DAUGHTER REPORTS PT IS NOT HAVING BOWEL MOVEMENTS AND THAT THE FECES COMING OUT IS COMING AROUND AN IMPACTION AND NO ONE IS ADDRESSING THIS. CM NOTIFIED TOBY THOMAS WHO PROVIDED ORDERS FOR MEDICATION TO TREAT CONDITION. BEDSIDE NURSE NOTIFIED. PT'S DAUGHTER PROVIDED CM WITH 77 PAGES AND ASKED CM TO FAX TO [facility] FOR FINANCIAL ASSISTANCE REGARDING REHAB SERVICES FOR PT. CM FAXED TO [facility] FINANCIAL ASSISTANCE PROGRAM AT [phone]. PT'S DAUGHTER ADVISED THAT IF APPROVED, PT WILL HAVE TO GO TO [facility]. PT WAS DECLINED MCC CARE PLACEMENT AT [facility]; PT AND FAMILY DECLINE TO HAVE FURTHER REFERRALS SENT OUT. FAMILY IS TRYING TO SECURE FINANCIAL ASSISTANCE FOR REHAB SERVICES THROUGH [facility]. CM TO CONTINUE TO FOLLOW AND ASSIST. Sandor Carrasquillo, CASE MANAGEMENT DCP- Discharge Planning Updated by [id number]: Sandor Carrasquillo on 06/04/19 11:[address] Patient Name: TROY HAYWOOD Encounter No: [id number] : 1955 Primary Insurance: MEDICAID [facility] DC Date: 06-02-2019 Planned Disposition: Nursing Facility YUN [facility] External Planned Provider: WAITING FAMILY DECISION DCP follow-up note: CM RECEIVED CALL FROM ANNIE OF [facility] WHO ADVISED CM THAT PT HAS BEEN FIANCIALLY DENIED FOR PLACEMENT. CM SPOKE TO PT IN ROOM WHO ADVISED THAT SHE UNDERSTOOD THEY WERE JUST GOING TO LEAVE HER LAYING IN BED FOR A MONTH AND NOT GIVE HER ANY REHAB SERVICES. CM EXPLAINED THAT MEDICAID DOES NOT PAY FOR REHAB SERVICES, ONLY MCC CARE AND PT WOULD RECEIVE WHAT THEY CALL "RESTORATIVE CARE" FROM STAFF AT ANY INTERMEDIATE, NOT THERAPY SERVICES. PT STATES SHE IS NOW ABLE TO STAND UP WITH THERAPY HERE. CM EXPLAINED THAT PT IS GETTING 8 TO 16 MINUTES OF THERAPY PER DAY AND THAT ALTHOUGH CM WAS HAPPY WITH PROGRESSION, PT IS MEDICALLY STABLE TO LEAVE THE HOSPITAL AND THAT SHE WOULD RECEIVE MORE THERAPY AT HOME WITH HOME HEALTH THAN IN THIS ACUTE HOSPITAL SETTING. PT STATES SHE IS NOT SURE WHAT HAPPENED, THAT CHEPE IS TAKING CARE OF THIS FOR HER AND THAT CHEPE WILL BE TO THE HOSPITAL IN A LITTLE WHILE TO SPEAK TO CM; PT BELIVES THAT CHEPE IS AGAIN WORKING ON TRYING TO GET TREY REHAB CARE THROUGH THE [facility] PROGRAM. PT HAS BEEN FINANCIALLY DECLINED FOR MCC CARE PLACEMENT BY [facility]. PT DEFERRING PLANNING TO HER DAUGHTER, CHEPE. CM WAITING FAMILY TO ARRIVE TO DISCUSS FURTHER DISCHARGE PLANNING. Sandor Carrasquillo, CASE MANAGEMENT DCP- Discharge Planning Updated by [id number]: Sandor Carrasquillo on 06/03/19 7:[address] Patient Name: TROY HAYWOOD Encounter No: [id number] : 1955 Primary Insurance: MEDICAID [place] Anticipated DC Date: 06-02-2019 Planned Disposition: Nursing Facility YUN Cert External Planned Provider: [facility] MEDICAID BED DISCHARGE PLANNING NOTE: CM FAXED REFERRAL UPDATE TO [facility] AT [phone]. CM WAITING ADMISSION DETERMINATION FROM [facility] FOR SH[facility]OR CARE. WAITING FAMILY TO PROVIDE FINANCIAL INFORMATION FOR MCC CARE MEDICAID APPLICATION TO FACILITY. ROSANNA Montaño DCP- Discharge Planning Updated by [id number]: Sandor Carrasquillo on 06/02/19 3:[address] Patient Name: TROY HAYWOOD Encounter No: [id number] : 1955 Primary Insurance: [place]ICAID [place] Anticipated DC Date: 06-02-2019 Planned Disposition: Nursing Facility YUN Cert External Planned Provider: [facility] MEDICAID BED DCP follow-up note: CM FAXED REFERRAL UPDATE TO [facility] AT [phone]. CM WAITING ADMISSION DETERMINATION FROM [facility] FOR SHACTOR CARE. Sandor Carrasquillo CASE MANAGEMENT Appended by Sandor Carrasquillo on 06/02/2019 16:50 PARK GUIDE: CM RECEIVED CALL FROM LUIS OF [facility], , THEY RECEIVED THE UPDATE BY FAX AND WILL CONTACT FAMILY REGARDING FINANCIALS. LUIS REPORTS THEY ARE STILL WAITING ON NURSING TO ACCEPT FOR SHACTOR CARE AND WILL ALSO NEED FINANCIAL CLEARANCE TO ENTER THE FACILITY. CM WAITING ADMISSION DETERMINATION FROM [facility] FOR SHACTOR CARE. [facility] CONTACTING FAMILY TO ASSIST WITH FINANCIAL INFORMATION FOR SHACTOR CARE MEDICAID APPLICATION. ROSANNA Montaño DCP- Discharge Planning Updated by [id number]: Sandor Carrasquillo on 06/01/19 4:[address] Patient Name: TROY HAYWOOD Encounter No: [id number] : 1955 Primary Insurance: [place]ICAID [place] Anticipated DC Date: 06-02-2019 Planned Disposition: Nursing Facility YUN Cert External Planned Provider: [facility], SHACTOR CARE MEDICAID BED DCP follow-up note: CM MET WITH PT AND DAUGHTER HOUSTON, WHO HAS MADE IT FROM [place]. UPDATE PROVIDED. CM CALLED [facility], DALE INFORMED CM THAT REFERRAL FROM CM AND [facility] WAS RECEIVED, STAFF IN MEETING TODAY AND THEY WILL FINISH ADMISSION REVIEW TOMORROW, 06-02-19. CM NOTIFIED PT AND DAUGHTER IN ROOM. CM WAITING ADMISSION DETERMINATION FROM [facility] FOR MCC CARE. Sandor Carrasquillo CASE MANAGEMENT DCP- Discharge Planning Updated by [id number]: Sandor Carrasquillo on 05/31/19 3:[address] Patient Name: TROY HAYWOOD Encounter No: [id number] : 1955 Primary Insurance: MEDICAID [place] Anticipated DC Date: 06-01-2019 Planned Disposition: Nursing Facility YUN [facility] External Planned Provider: [facility], SHACTOR CARE MEDICAID BED DCP follow-up note: AFTER SEVERAL VISITS WITH PT IN ROOM, PHONE CALLS WITH DAUGHTERS, [facility] AND [facility], PT DECIDED TO CONSENT TO 30 DAYS OF SH[address] CARE AT [facility] AFTER PT'S DAUGTHERS, WITH AIDE [facility] WHO WILL CONSIDER PT FOR CARE. PT SIGNED CHOICE. CM FAXED REFERRAL INFORMATION TO [facility] AT [phone]. CM WAITING ADMISSION DETERMINATION FROM [facility] FOR MCC CARE. Sandor Carrasquillo CASE DEVAUGHN DCP- Discharge Planning Updated by [id number]: Sandor Carrasquillo on 05/28/19 3:[address] Patient Name: TROY HAYWOOD Encounter No: [id number] : 1955 Primary Insurance: [place]ICAID [place] Anticipated DC Date: 06-02-2019 Planned Disposition: Home with [facility] External Planned Provider: [facility] DCP follow-up note: CM RECEIVED CALL FROM PT'S DAUGHTER, CHEPE, WHO VERIFIED THAT SHE WILL COME NEXT WEEK TO STAY WITH PT FOR TWO OR THREE WEEKS TO CARE FOR PT AT HOME. CHEPE WILL DISCUSS WITH HER MOTHER THAT SHE WILL HAVE TO BE ABLE TO STAND AND TRANSFER FOR CHEPE TO CARE FOR HER. CM REVIEWED THERAPY NOTES TO PRESENT. 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 PT HAS BEDSIDE COMMODE AND WHEELCHAIR AT HOME. CHEPE REPORTS NEED OF [facility] RESUMPTION. CHEPE WILL DISCUSS WITH PT AND TRY TO MOTIVATE HER TO MEET THERAPY GOALS PRIOR TO ARRIVAL ON NEXT FRIDAY OR FRIDAY. PT'S DAUGHTER PLANS TO TAKE PT HOME NEXT FRIDAY OR FRIDAY, THEY WILL NEED [facility] RES[facility], DENIES FURTHER NEEDS. CM TO FOLLOW AND ASSIST NEEDED. Sandor Carrasquillo, CASE MANAGEMENT DCP- Discharge Planning Updated by [id number]: Sandor Carrasquillo on 05/28/19 2:[address] Patient Name: TROY HAYWOOD Encounter No: [id number] : 1955 Primary Insurance: [place]ID [place] Anticipated DC Date: Planned Disposition: Nursing Facility YUN Cert External Planned Provider: TO BE DETERMINED DCP follow-up note: CM SPOKE TO [facility], SHE INFORMED CM THAT UPDATES HAVE BEEN RECEIVED, PT IS NOT MAKING ENOUGH PROGRESS WITH THERAPY THAT THEY DO NOT BELIEVE THAT PT WILL BE ABLE TO ACHIEVE THERAPY GOALS IN THE REMAINING 10 DAYS OF ACUTE DAYS THAT PT HAS REMAINING. CM NOTIFIED PT AND PROVIDED PT WITH NURSING FACILITY LISTING OF ALL AVAILABLE FACILITIES WITHIN [address] [place]. PT WILL SPEAK TO HER DAUGHTER AND NOTIFY CM OF HER CHOICES. CM CALLED [facility], , TWICE; AUTOMATED MESSAGE INFORMED CM THAT THE NUMBER WAS RESTRICTED OR CURRENTLY UNAVAILABLE. CM WAITING PT AND FAMILY TO PROVIDE NURSING FACILITY CHOICES FOR SHACTOR CARE. Sandor Carrasquillo, CASE MANAGEMENT Appended by Sandor Carrasquillo on 05/28/2019 12:07 CDT: CM SPOKE TO PT IN ROOM, NOTIFIED PT THAT CM TRIED AND COULD NOT REACH DAUGHTER HOUSTON VIA PHONE. PT REPORTS SHE SPOKE TO [facility]ON WHO TOLD HER THAT [facility] WILL NOT TAKE HER DUE TO WEIGHT; PT'S DAUGHTER TOLD PT THAT [facility] PROBAB[facility] WILL NOT TAKE HER. PT REPORTS THERE IS ONE IN [place] THAT MIGHT CONSIDER HER. CM OFFERED CHOICE FORM FOR SIGNATURE SO THAT CM COULD SEND REFERRALS AND BEGIN CALLING TO FIND PLACEMENT. PT REFUSED AND STATES SHE HAS A DAUGHTER, CHEPE, WHO IS A REGISTERED NURSE, THAT MAY BE COMING TO TAKE CARE OF PT AT HOME. PT'S DAUGHTER HOUSTON IS CALLING DAUGHTER CHEPE TO DISCUSS THE OPTION. PT STATES SHE WILL LET CM KNOW THE OUTCOME AND IF SHE WANTS CM TO EXPLORE INTERMEDIATE CARE FOR HER. CM WAITING PT AND FAMILY TO PROVIDE NURSING FACILITY CHOICES AND FOR PT TO SIGN CONSENT FOR INTERMEDIATE PLACEMENT. PT IS NOW HOPEFUL THAT HER DAUGHTER WHO IS A REGISTERED NURSE WILL COME AND STAY WITH PT AND TAKE CARE OF HER AT HOME. SANDOR CARRASQUILLO, CASE MANAGEMENT Appended by Sandor Carrasquillo on 05/28/2019 14:27 CDT: CM RECEIVED MESSAGE THAT PT WANTS TO SEE CM. CM MET WITH PT IN ROOM WHO INFORMED CM THAT SHE HIS NOT GOING TO A INTERMEDIATE, THAT HER DAUGHTER, CHEPE, WHO IS A NURSE, WILL BE HERE NEXT FRIDAY TO TAKE HER HOME AND WILL TAKE CARE OF PT AT HOME. PT ASKED FOR [facility]TION. CM DISCUSSED POSSIBLE NEED OF DEBORAH LIFT AND ASKED ABOUT ADDITIONAL EQUIPMENT. PT THINKS BY NEXT WEEK, SHE WILL BE ABLE TO TRANSFER WITHOUT AIDE OF LIFT DEVICE. CM NOTIFIED DR. FREEDMAN WHO INFORMED CM THAT HE WILL ORDER BLOOD GAS ON FRIDAY TO DETERMINE RESPIRATORY DISCHARGE NEEDS AT THAT TIME. PT HAS SIGNED RIGHT OF CHOICE FOR [facility] ALREADY. PT REPORTS HER DAUGHTER, WHO IS A REGISTERED NURSE, WILL BE HERE FRIDAY OF NEXT WEEK TO TAKE CARE OF PT AT HOME. PT PLANS TO DISCHARGE HOME WITH FAMILY AND [facility]. CM TO FOLLOW AND ASSIST NEEDED. ROSANNA MONTAÑO DCP- Discharge Planning Updated by [id number]: Sandor Carrasquillo on 05/28/19 7:[address] Patient Name: TROY HAYWOOD Encounter No: [id number] : 1955 Primary Insurance: [place]ID [place] Anticipated DC Date: Planned Disposition: Inpatient Rehab External Planned Provider: [facility] DCP follow-up note: CM FAXED REFERRAL UPDATE TO [facility] AT [phone]. CM WAITING ADMISSION DETERMINATION FROM [facility] IN [place]. ROSANNA Montaño DCP- Discharge Planning Updated by [id number]: Sandor Carrasquillo on 05/27/19 2:[address] Patient Name: TROY HAYWOOD Encounter No: [id number] : 1955 Primary Insurance: [place]ICAID [place] Anticipated DC Date: Planned Disposition: Inpatient Rehab External Planned Provider: [facility] DCP follow-up note: CM FAXED REFERRAL UPDATE TO [facility] AT [phone]. CM WAITING ADMISSION DETERMINATION FROM [facility] IN [place]. Sandor Carrasquillo, CASE MANAGEMENT Appended by Sandor Carrasquillo on 05/27/2019 14:41 CDT: CM CALLED [facility], , LEFT MESSAGE ASKING FOR UPDATE ON REFERRAL AND TO KNOW IF THEY ARE STILL CONSIDERING PT FOR REHAB. CM WAITING ADMISSION DETERMINATION FROM [facility] IN [place]. Sandor Carrasquillo, CASE MANAGEMENT DCP- Discharge Planning Updated by [id number]: Jesica Osiel on 05/26/19 4:[address] Patient requested Trapeze bar to allow her to sit up in hospital bed. CM spoke Dr. Lawson and obtained approval for Trapeze bar. CM notified Radha in materials management of request for Trapeze bar. CM completed and gave Radha the order form for the Trapeze bar. Trapeze bar will be delivered. CM notified patient's CM, Christiano Carrasquillo, on status of Trapeze bar. DCP- Discharge Planning Updated by [id number]: Sandor Carrasquillo on 05/26/19 3:[address] Patient Name: TROY HAYWOOD Encounter No: [id number] : 1955 Primary Insurance: MEDICAID [facility] DC Date: Planned Disposition: Inpatient Rehab External Planned Provider: [facility] DCP follow-up note: CM SPOKE TO PT'S DAUGHTER VIA PHONE, HOUSTON SALGADO, . CM OBTAINED PERMISSION FROM PT TO DISCUSS CARE, TREATMENT AND DISCHARGE PLANNING WITH HOUSTON. HOUSTON INFORMED CM THAT PT WAS IN REHAB AT [facility] LAST YEAR AND THEY WANT REFERRED TO [facility] AGAIN. CHRISTOPHER DISCUSSED PT'S VERY LOW LEVEL OF PHYSICAL CONDITIONING. PT'S DAUGHTER FEELS THAT PT CAN PARTICIPATE WITH THERAPY WITH GOAL TO RETURN HOME PREVIOUS WITH ABILITY TO TRANSFER TO ELECTRIC SCOOTER AND HOME HEALTH FOR CONTINUED HOME SERVICES. HOUSTON VERIFIED THAT PT HAS NO ADULTS ABLE TO LIVE WITH AND ASSIST PT AT HOME AT THIS TIME. HOUSTON ASKED ABOUT [facility] REHAB SERVICES THAT MAY TAKE PT AT NO COSTS DUE TO INCOME. CM INFORMED HOUSTON THAT CM WAS NOT FAMILIAR WITH ANY OF THESE PROGRAMS. HOUSTON WOULD LIKE TO HAVE PT EVALUATED FOR REHAB AT [facility] PRIOR TO ANY CONSIDERATION OF INTERMEDIATE PLACEMENT PT WILL NOT GET THERAPY THERE. CM SPOKE TO PT WHO IS IN AGREEMENT WITH PLAN. CM CALLED [facility], , NOTIFIED OF REHAB REQUEST; PT HAS ONLY 24 ACUTE DAYS THAT STARTED IN JANUARY, IT DEPENDS ON HOW MANY HAVE BEEN ALREADY USED, PT'S CONDITION AND NEEDS THAT WOULD HAVE TO BE MET IN THE REMAINING DAYS THAT PT HAS TO USE FOR REHAB . CM FAXED REFERRALINFORMATION TO [facility] WITH CURRENT MAR AT [phone]. CM WAITING ADMISSION DETERMINATION FROM [facility] IN [place]. Sandor Carrasquillo, CASE MANAGEMENT Appended by Sandor Carrasquillo on 05/26/2019 15:24 CDT: CM MET WITH PT, GRANDDAUGHTER, DAUGHTER HOUSTON VIA PHONE WITH CM SALESPERSON HEARING AIDS, UNIT NURSE DEGREASING WHEEL OPERATOR, REPIRATORY THERAPIST AND SALESPERSON HEARING AIDS OF THERAPY SERVICES REGARDING DISCHARGE PLANNING. CONCERNS OF PT'S PLAN TO GO HOME IN CURRENT CONDITION DISCUSSED. PT AND DAUGHTER HAVE ALREADY ASKED FOR REFERRAL TO [facility] RE[facility], CM HAS SENT IT AND WAITING DETERMINATION. PLAN "B" WAS AGREED TO BE NURSING FACILITY IF NOT ACCEPTED TO [facility] AND THAT CM WOULD ATTEMPT TO FIND ONE THAT MAY DONATE REHAB SERVICES. PT'S DAUGHTER IS RESEARCHING ZEKE FUNDING FROM [facility] FOR REHAB SERVICES. CM WAITING ADMISSION DETERMINATION FROM [facility] IN [place]. Sandor Carrasquillo, CASE MANAGEMENT DCP- Discharge Planning Updated by [id number]: Sandor Carrasquillo on 05/25/19 2:[address] Patient Name: TROY HAYWOOD Encounter No: [id number] : 1955 Primary Insurance: MEDICAID [facility] Date: Planned Disposition: Home HEALTH External Planned Provider: [facility], VISITING NURSES [facility] follow-up note: CM MET WITH PT IN ROOM TO DISCUSS DISCHARGE NEEDS AND PLANNING. CM DISCUSSED AVAILABILITY OF HOME HEALTH, REHAB SERVICES AND MEDICAL EQUIPMENT. PT REFUSES [facility] FACILITY PLACEMENT. PT STATES PLAN TO RETURN HOME. 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 PT WAS ABLE TO AMBULATE SMALL DISTANCES AND TRANSFER SELF FROM BED TO ELECTRIC WHEELCHAIR AT HOME. PT THINKS SHE IS GOING TO BE ABLE TO TRANSFER SELF TO GO BACK HOME. PT WANTS HOME HEALTH RESUMED TO GO HOME. CM EXPRESSED CONCERN OF PT'S CURRENT LEVEL OF FUNCTIONING AND RETURNING HOME. PT DENIES HAVING FRIENDS OR FAMILY TO ASSIST WITH HER CARE AT HOME BUT IS NOT GOING TO A INTERMEDIATE. PT THINKS SHE WILL NEED AN AMBULANCE FOR TRANSPORT HOME HER ELECTRIC WHEELCHAIR IS THERE. CM EXPLAINED TO PT THAT SHE WILL NEED TO DEMONSTRATE WITH THERAPY THE ABILITY TO TRANSFER AND SIT IN CHAIR FOR DISCHARGE. PT STATED UNDRESTANDING. CHOICE FOR [facility] VISITING NURSES HOME HEALTH SIGNED. 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 PT REFUSED NURSING FACILITY PLACEMENT. PT WILL NEED TO DEMONSTRATE ABILITY TO TRANSFER AND SIT IN CHAIR FOR DISCHARGE SHE HAS ELECTRIC WHEELCHAIR AT HOME. CM TO ARRANGE HOME HEALTH RESUMPTION WITH [facility] VISITING NURSES AGENCY IN [place] FOR DISCHARGE HOME. CM TO CONTINUE TO FOLLOW AND ASSIST NEEDED. Sandor Carrasquillo, CASE MANAGEMENT DCP- Discharge Planning Updated by [id number]: Aleisha Monroe on 05/19/19 7:[address] Patient Name: TROY HAYWOOD Admission Status: ER Accout number: [id number] Admission Date: 05-14-2019 : 1955 Admission Diagnosis: Attending: FABIO PINEDA Current LOS: 5 Anticipated DC Date: Planned Disposition: Home or Self Care Primary Insurance: [place]ID [place] Discharge Planning Comments: CM met with patient and daughter to complete initial dc planning assessment. Patient recently extubated earlier today. CM educated patient on the CM role and verbal consent given by patient to complete assessment. Patient lives at home with her two young grand-daughters where she is independent with her care. At discharge patient plans to return home and feels this is a safe discharge. CM discussed availability of home health, rehab services, and medical equipment. Patient has Home 02 and HH with unknown providers. CM will f/u with patient @ later date to see if she is able to give providers. Patient denied known discharge needs at this time. CM will continue to follow and will assist as needed with dc plans/needs. Tooth Cutter Pinion: Aleisha Monroe DCPIA - Discharge Planning Initial Assessment Updated by [id number]: Sandor Carrasquillo on 05/28/19 9:36 am * How many steps to enter\\exit or inside your home? * PCP uncertain ? * Pharmacy [facility] * Preadmission Environment Home with Family * ADLs Independent * Other Equipment HOME 02, TORIBIO, FRANCOISE, BSC, SC * List name and contact numbers for known caregivers / representatives who currently or will assist patient after discharge: CHEPE SUN - DAUGHTER- [phone] HOUSTON SALGADO, DTR - [phone] * Verbal permission to speak to the caregivers and representatives has been obtained from the patient. Yes * Community resources currently utilized Home Health * Please name any agencies selected above. [facility] * Additional services required to return to the preadmission environment? No * Can the patient safely return to the preadmission environment? Yes * Has this patient been hospitalized within the prior 30 days at any hospital? No Coverage Notice Reviewer: [id number] Carrasquillo Notice Issued Date-Time: 05/25/2019 14:05 Notice Type: Patient Choice Letter Notice Delivered To: Patient Relationship to Patient: Adult Psychiatrist Name: Delivery Method: HAND - Hand Delivered Marry Days: Prior Verbal Notification: Recipient Understood Notice: Yes Recipient Signature: Yes Med Rec Note Co-signed by Attending: Coverage Notice Comment: [facility]- [facility]ISITING [facility] Reviewer: [id number] Carrasquillo Notice Issued Date-Time: 05/31/2019 14:50 Notice Type: Patient Choice Letter Notice Delivered To: Patient Relationship to Patient: Adult Psychiatrist Name: Delivery Method: HAND - Hand Delivered Marry Days: Prior Verbal Notification: Recipient Understood Notice: Yes Recipient Signature: Yes Med Rec Note Co-signed by Attending: Coverage Notice Comment: [facility] Last DP export: 06/09/19 3:15 Patient Name: TROY HAYWOOD Page [id number] at 1637 All edits/amendments must be made on the electronic document DICTATION DATE: 06/09/191635 CERTIFIED DIALYSIS TECHNICIAN: MISHEL 06/09/191635 RPT#: [id number] DC DATE: STATUS: [facility] [facility] [address] [place] [address] END OF REPORT
--- NOTE | 2019-06-09 16:40 | NUR ---
I have reviewed this patient and I concur with the Shift Assessment completed by the Licensed Practical Nurse today this shift.
[2019-06-09 17:44] VITALS: BP 119/57
[2019-06-09 20:00] VITALS: BP 114/47
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
--- NOTE | 2019-06-09 21:43 | NUR ---
EVENING MEDS GIVEN. PT PLACED ON BIPAP.
[2019-06-10] VITALS (7 sets, daily range): BP systolic 107–119; BP diastolic 47–71
--- NOTE | 2019-06-10 07:30 | NUR ---
PT RESTING. PULLED UP IN BED UPON REQUEST. RR EVEN AND UNLABORED. DENIES NEEDS OR PAIN AT THIS TIME. BED IN LOWEST POSITION. CALL LIGHT WITHIN REACH. WILL CONTINUE TO MONITOR.
--- NOTE | 2019-06-10 12:20 | NUR ---
OT NOTE: BED MOB WITH MOD ASSIST; SIT TO STAND WITH MOD ASSIST X 2 AND WALKER. CONT CUES FOR UPRIGHT STANDING, HOWEVER, PT UNABLE TO PERFORM DUE TO BACK PAIN. PT TOLERATED STANDING FOR 2 MIN TODAY. ABLE TO TAKE A FEW SIDE STEPS BUT STILL UNABLE TO TAKE ENOUGH TO TRANSFER TO DIFFERENT SURFACE. UE AROM EXS X 10 REPS WITH REST BREAKS DURING EACH SET. BACK TO BED WITH MAX ASSIST. PRACTICED ROLLING SIDE TO SIDE WITH MAX ASSIST. UE EXS WITH USE OF TRAPEZE. SAÚL ESCAMILLA, OTR/L
--- NOTE | 2019-06-10 15:04 | NUR ---
OT NOTE: PT COMPLETED UE AROM AXS. PT COMPLETED BED MOB TASKS WITH MOD A. PT COMPLETED LB HYGIENE TASKS WITH MAX Evan. THANK YOU, BLADIMIR MANCERA
--- NOTE | 2019-06-10 16:12 | MORECARE ---
CASE MANAGEMENT DISCHARGE SUMMARY PATIENT: TROY HAYWOOD UNIT: [id number] ADM DATE: 05/14/19 AGE: 64 : 57 SEX: F ROOM/BED: D.2140 AUTHOR: DAYDAYDOC PHYSICIAN: REFERRING PHYSICIAN: FABIO PINEDA MD DATE OF SERVICE: 06/10/19 Discharge Plan Patient Name: TROY HAYWOOD Facility: [facility]:[place] : 1955 Planned Disposition: Nursing Facility YUN Cert Anticipated Discharge Date: 06/11/19 Discharge Date: Expected LOS: 28 Initial Reviewer: [id number] Initial Review Date: 05/19/2019 Generated: 06/10/19 5:12 pm Comments DCP- Discharge Planning Updated by [id number]: Sandor Carrasquillo on 06/09/19 3:[address] Patient Name: TROY HAYWOOD Encounter No: [id number] : 1955 Primary Insurance: [place]ID [place] Anticipated DC Date: 06-10-2019 Planned Disposition: Nursing Facility YUN Cert External Planned Provider: FIRST ACCEPTING FACILITY DCP follow-up note: CM SPOKE TO PT AND DAUGHTER, CHEPE, THEY WILL LET CM SEEK PENITENTIARY PLACEMENT FOR THEM TO CONSIDER BUT STILL DO NOT WANT HOSE SEAMER CARE IF THEY CAN OBTAIN REHAB THROUGH THE [facility]. DAUGHTER ADVISED SHE HAS CONFIRMED RECEIPT OF THE APPLICATION FAXED TO THE [facility] AND IS IN PROCESS OF REVIEW. DAUGHTER ASKED CM TO CHECK INTO REHAB'S THAT MAY HAVE [facility]STR[facility] AFFILIATION. CM CALLED [facility], , REQUESTED ASSISTANCE IN FPC CARE PLACEMENT WITH INTENT TO RETURN HOME. CHAR STATES THAT SHE MAY HAVE HOME'S WILL ACCEPT BARIATRIC PATIENT AND WILL ATTEMPT PLACEMENT. CHAR WILL MEET WITH PT LATER TODAY. CM FAXED REFERRAL TO [facility] AT [phone]. CM SPOKE TO TROY MIMS OF [facility], TROY INFORMED CM THAT SHE HAS NO HOMES IN HER GROUP THAT MAY ASSIST WITH PLACEMENT. CM CALLED [facility] [place], WAS ADVISED BY [facility] THAT THEY WILL NOT CONSIDER FOR TREY CARE, THEY ARE NOT AFFILIATED WITH [facility]. CM CALLED [facility], , SPOKE TO CHELO WHO INFORMED CM THAT THEY ARE NOT AFFILIATED WITH [facility] BUT WILL CONSIDER PT FOR TREY REHAB. CM FAXED REFERRAL TO [facility] AT [phone]. CM CALLED [facility] IN [place], , SPOKE TO DHEERAJ WHO REPORTS THEY HAVE NO OPEN REHAB BEDS AND HAVE NO PROJECTED DISCHARGES SOON. THEY DO NOT HAVE WEIGHT LIMITS. DHEERAJ DID NOT WANT REFERRAL FAXED, SHE WILL REPORT TO BREN WHO WILL CHECK WITH THE [facility] REGARDING APPLICATION STATUS AND CALL CM TOMORROW, 06-10-19. CM NOTIFIED PT IN ROOM OF PROGRESS. PT STATES SHE MAY BE ABLE TO TRANSFER SELF AND GO HOME BEFORE CM FINDS REHAB FOR HER. - CM WAITING ADMISSION DETERMINATION FROM [facility] FOR FPC CARE PLACEMENT IN ONE OF HER AFFILIATED NURSING HOMES. - CM WAITING ADMISSION DETERMINATION FROM [facility] FOR [facility] BED. - CM WAITING RETURN CALL FROM [facility] IN [place] REGARDING TREY REHAB. Sandor Carrasquillo, CASE MANAGEMENT DCP- Discharge Planning Updated by [id number]: Sandor Carrasquillo on 06/04/19 4:[address] Patient Name: TROY HAYWOOD Encounter No: [id number] : 1955 Primary Insurance: [place] Anticipated DC Date: 06-02-2019 Planned Disposition: Nursing Facility YUN Cert External Planned Provider: TO BE DETERMINED DCP follow-up note: CM SPOKE TO PT AND DAUGHTER CHEPE, IN ROOM. PT IS AND FOR PAST 10 YEARS, BUT NOT LEGALLY. THEY CANNOT QUALIFY FOR MEDICAID FOR FPC CARE DUE TO NOT HAVING SPOUSE FINANICAL INFORMATION. PT AND DAUGHTER BOTH STATE THAT THEY DO NOT WANT TO PUT PT INTO FPC PENITENTIARY CARE WHERE SHE WILL JUST LAY IN THE BED. THEY DO NOT WANT FURTHER PENITENTIARY REFERRALS FAXED OUT. CM DISCUSSED THAT PT IS STABLE FOR DISCHARGE MEDICALLY. PT'S DAUGHTER REPORTS PT IS NOT HAVING BOWEL MOVEMENTS AND THAT THE FECES COMING OUT IS COMING AROUND AN IMPACTION AND NO ONE IS ADDRESSING THIS. CM NOTIFIED TOBY THOMAS WHO PROVIDED ORDERS FOR MEDICATION TO TREAT CONDITION. BEDSIDE NURSE NOTIFIED. PT'S DAUGHTER PROVIDED CM WITH 77 PAGES AND ASKED CM TO FAX TO [facility] FOR FINANCIAL ASSISTANCE REGARDING REHAB SERVICES FOR PT. CM FAXED TO [facility] FINANCIAL ASSISTANCE PROGRAM AT [phone]. PT'S DAUGHTER ADVISED THAT IF APPROVED, PT WILL HAVE TO GO TO [facility]. PT WAS DECLINED FPC CARE PLACEMENT AT [facility]; PT AND FAMILY DECLINE TO HAVE FURTHER REFERRALS SENT OUT. FAMILY IS TRYING TO SECURE FINANCIAL ASSISTANCE FOR REHAB SERVICES THROUGH [facility]. CM TO CONTINUE TO FOLLOW AND ASSIST. Sandor Carrasquillo, CASE MANAGEMENT DCP- Discharge Planning Updated by [id number]: Sandor Carrasquillo on 06/04/19 11:[address] Patient Name: TROY HAYWOOD Encounter No: [id number] : 1955 Primary Insurance: MEDICAID [facility] DC Date: 06-02-2019 Planned Disposition: Nursing Facility [facility] External Planned Provider: WAITING FAMILY DECISION DCP follow-up note: CM RECEIVED CALL FROM ANNIE OF [facility] WHO ADVISED CM THAT PT HAS BEEN FIANCIALLY DENIED FOR PLACEMENT. CM SPOKE TO PT IN ROOM WHO ADVISED THAT SHE UNDERSTOOD THEY WERE JUST GOING TO LEAVE HER LAYING IN BED FOR A MONTH AND NOT GIVE HER ANY REHAB SERVICES. CM EXPLAINED THAT MEDICAID DOES NOT PAY FOR REHAB SERVICES, ONLY FPC CARE AND PT WOULD RECEIVE WHAT THEY CALL "RESTORATIVE CARE" FROM STAFF AT ANY PENITENTIARY, NOT THERAPY SERVICES. PT STATES SHE IS NOW ABLE TO STAND UP WITH THERAPY HERE. CM EXPLAINED THAT PT IS GETTING 8 TO 16 MINUTES OF THERAPY PER DAY AND THAT ALTHOUGH CM WAS HAPPY WITH PROGRESSION, PT IS MEDICALLY STABLE TO LEAVE THE HOSPITAL AND THAT SHE WOULD RECEIVE MORE THERAPY AT HOME WITH HOME HEALTH THAN IN THIS ACUTE HOSPITAL SETTING. PT STATES SHE IS NOT SURE WHAT HAPPENED, THAT CHEPE IS TAKING CARE OF THIS FOR HER AND THAT CHEPE WILL BE TO THE HOSPITAL IN A LITTLE WHILE TO SPEAK TO CM; PT BELIVES THAT CHEPE IS AGAIN WORKING ON TRYING TO GET TREY REHAB CARE THROUGH THE [facility]. PT HAS BEEN FINANCIALLY DECLINED FOR FPC CARE PLACEMENT BY [facility]. PT DEFERRING PLANNING TO HER DAUGHTER, CHEPE. CM WAITING FAMILY TO ARRIVE TO DISCUSS FURTHER DISCHARGE PLANNING. Sandor Carrasquillo, CASE MANAGEMENT DCP- Discharge Planning Updated by [id number]: Sandor Carrasquillo on 06/03/19 7:[address] Patient Name: TROY HAYWOOD Encounter No: [id number] : 1955 Primary Insurance: [place] Anticipated DC Date: 06-02-2019 Planned Disposition: Nursing Facility YUN Cert External Planned Provider: [facility]PC [facility] MEDICAID BED DISCHARGE PLANNING NOTE: CM FAXED REFERRAL UPDATE TO [facility] AT [phone]. CM WAITING ADMISSION DETERMINATION FROM [facility] FOR [facility]SE [facility]AMER CARE. WAITING FAMILY TO PROVIDE FINANCIAL INFORMATION FOR FPC CARE MEDICAID APPLICATION TO FACILITY. ROSANNA Montaño DCP- Discharge Planning Updated by [id number]: Sandor Carrasquillo on 06/02/19 3:[address] Patient Name: TROY HAYWOOD Encounter No: [id number] : 1955 Primary Insurance: [place] Anticipated DC Date: 06-02-2019 Planned Disposition: Nursing Facility YUN Cert External Planned Provider: [facility] FPC [facility] MEDICAID BED DCP follow-up note: CM FAXED REFERRAL UPDATE TO [facility] AT [phone]. CM WAITING ADMISSION DETERMINATION FROM [facility] FOR HOSE SEAMER CARE. Sandor Carrasquillo CASE MANAGEMENT Appended by Sandor Carrasquillo on 06/02/2019 16:50 FERTILIZER LOADER: CM RECEIVED CALL FROM LUIS OF [facility], , THEY RECEIVED THE UPDATE BY FAX AND WILL CONTACT FAMILY REGARDING FINANCIALS. LUIS REPORTS THEY ARE STILL WAITING ON NURSING TO ACCEPT FOR HOSE SEAMER CARE AND WILL ALSO NEED FINANCIAL CLEARANCE TO ENTER THE FACILITY. CM WAITING ADMISSION DETERMINATION FROM [facility] FOR HOSE SEAMER CARE. [facility] CONTACTING FAMILY TO ASSIST WITH FINANCIAL INFORMATION FOR HOSE SEAMER CARE MEDICAID APPLICATION. ROSANNA Montaño DCP- Discharge Planning Updated by [id number]: Sandor Carrasquillo on 06/01/19 4:[address] Patient Name: TROY HAYWOOD Encounter No: [id number] : 1955 Primary Insurance: [place] Anticipated DC Date: 06-02-2019 Planned Disposition: Nursing Facility YUN Cert External Planned Provider: [facility], HOSE SEAMER CARE MEDICAID BED DCP follow-up note: CM MET WITH PT AND DAUGHTER HOUSTON, WHO HAS MADE IT FROM [place]. UPDATE PROVIDED. CM CALLED [facility], DALE INFORMED CM THAT REFERRAL FROM CM AND [facility] WAS RECEIVED, STAFF IN MEETING TODAY AND THEY WILL FINISH ADMISSION REVIEW TOMORROW, 06-02-19. CM NOTIFIED PT AND DAUGHTER IN ROOM. CM WAITING ADMISSION DETERMINATION FROM [facility] FOR FPC CARE. Sandor Carrasquillo CASE MANAGEMENT DCP- Discharge Planning Updated by [id number]: Sandor Carrasquillo on 05/31/19 3:[address] Patient Name: TROY HAYWOOD Encounter No: [id number] : 1955 Primary Insurance: [place] Anticipated DC Date: 06-01-2019 Planned Disposition: Nursing Facility [facility] External Planned Provider: [facility], HOSE SEAMER CARE MEDICAID BED DCP follow-up note: AFTER SEVERAL VISITS WITH PT IN ROOM, PHONE CALLS WITH DAUGHTERS, [facility] AND [facility], PT DECIDED TO CONSENT TO 30 DAYS OF HOSE SEAMER CARE AT [facility] AFTER PT'S DAUGTHERS, WITH AIDE [facility], [facility] WHO WILL CONSIDER PT FOR CARE. PT SIGNED CHOICE. CM FAXED REFERRAL INFORMATION TO [facility] AT [phone]. CM WAITING ADMISSION DETERMINATION FROM [facility] FOR FPC CARE. Sandor Carrasquillo CASE DEVAUGHN DCP- Discharge Planning Updated by [id number]: Sandro Carrasquillo on 05/28/19 3:[address] Patient Name: TROY HAYWOOD Encounter No: [id number] : 1955 Primary Insurance: [place] Anticipated DC Date: 06-02-2019 Planned Disposition: Home with [facility] External Planned Provider: [facility] DCP follow-up note: CM RECEIVED CALL FROM PT'S DAUGHTER, CHEPE, WHO VERIFIED THAT SHE WILL COME NEXT WEEK TO STAY WITH PT FOR TWO OR THREE WEEKS TO CARE FOR PT AT HOME. CHEPE WILL DISCUSS WITH HER MOTHER THAT SHE WILL HAVE TO BE ABLE TO STAND AND TRANSFER FOR CHEPE TO CARE FOR HER. CM REVIEWED THERAPY NOTES TO PRESENT. 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 PT HAS BEDSIDE COMMODE AND WHEELCHAIR AT HOME. CHEPE REPORTS NEED OF [facility] RESUMPTION. CHEPE WILL DISCUSS WITH PT AND TRY TO MOTIVATE HER TO MEET THERAPY GOALS PRIOR TO ARRIVAL ON NEXT FRIDAY OR FRIDAY. PT'S DAUGHTER PLANS TO TAKE PT HOME NEXT FRIDAY OR FRIDAY, THEY WILL NEED [facility] RES[facility], DENIES FURTHER NEEDS. CM TO FOLLOW AND ASSIST NEEDED. Sandor Carrasquillo, CASE MANAGEMENT DCP- Discharge Planning Updated by [id number]: Sandor Carrasquillo on 05/28/19 2:[address] Patient Name: TROY HAYWOOD Encounter No: [id number] : 1955 Primary Insurance: [place] Anticipated DC Date: Planned Disposition: Nursing Facility YUN Cert External Planned Provider: TO BE DETERMINED DCP follow-up note: CM SPO[facility] TO [facility], SHE INFORMED CM THAT UPDATES HAVE BEEN RECEIVED, PT IS NOT MAKING ENOUGH PROGRESS WITH THERAPY THAT THEY DO NOT BELIEVE THAT PT WILL BE ABLE TO ACHIEVE THERAPY GOALS IN THE REMAINING 10 DAYS OF ACUTE DAYS THAT PT HAS REMAINING. CM NOTIFIED PT AND PROVIDED PT WITH NURSING FACILITY LISTING OF ALL AVAILABLE FACILITIES [place]IN [address]. PT WILL SPEAK TO HER DAUGHTER AND NOTIFY CM OF HER CHOICES. CM CALLED [facility], , TWICE; AUTOMATED MESSAGE INFORMED CM THAT THE NUMBER WAS RESTRICTED OR CURRENTLY UNAVAILABLE. CM WAITING PT AND FAMILY TO PROVIDE NURSING FACILITY CHOICES FOR HOSE SEAMER CARE. Sandor Carrasquillo, CASE MANAGEMENT Appended by Sandor Carrasquillo on 05/28/2019 12:07 CDT: CM SPOKE TO PT IN ROOM, NOTIFIED PT THAT CM TRIED AND COULD NOT REACH DAUGHTER HOUSTON VIA PHONE. PT REPORTS SHE SPOKE TO [facility]STON WHO TOLD HER THAT [facility] WILL NOT TAKE HER DUE TO WEIGHT; PT'S DAUGHTER TOLD PT THAT [facility] PROBABLY WILL NOT TAKE HER. PT REPORTS THERE IS ONE IN [place] THAT MIGHT CONSIDER HER. CM OFFERED CHOICE FORM FOR SIGNATURE SO THAT CM COULD SEND REFERRALS AND BEGIN CALLING TO FIND PLACEMENT. PT REFUSED AND STATES SHE HAS A DAUGHTER, CHEPE, WHO IS A REGISTERED NURSE, THAT MAY BE COMING TO TAKE CARE OF PT AT HOME. PT'S DAUGHTER HOUSTON IS CALLING DAUGHTER CHEPE TO DISCUSS THE OPTION. PT STATES SHE WILL LET CM KNOW THE OUTCOME AND IF SHE WANTS CM TO EXPLORE PENITENTIARY CARE FOR HER. CM WAITING PT AND FAMILY TO PROVIDE NURSING FACILITY CHOICES AND FOR PT TO SIGN CONSENT FOR PENITENTIARY PLACEMENT. PT IS NOW HOPEFUL THAT HER DAUGHTER WHO IS A REGISTERED NURSE WILL COME AND STAY WITH PT AND TAKE CARE OF HER AT HOME. SANDOR CARRASQUILLO, CASE MANAGEMENT Appended by Sandor Carrasquillo on 05/28/2019 14:27 CDT: CM RECEIVED MESSAGE THAT PT WANTS TO SEE CM. CM MET WITH PT IN ROOM WHO INFORMED CM THAT SHE HIS NOT GOING TO A PENITENTIARY, THAT HER DAUGHTER, CHEPE, WHO IS A NURSE, WILL BE HERE NEXT FRIDAY TO TAKE HER HOME AND WILL TAKE CARE OF PT AT HOME. PT ASKED FOR [facility] RES[facility]TION. CM DISCUSSED POSSIBLE NEED OF DEBORAH LIFT AND ASKED ABOUT ADDITIONAL EQUIPMENT. PT THINKS BY NEXT WEEK, SHE WILL BE ABLE TO TRANSFER WITHOUT AIDE OF LIFT DEVICE. CM NOTIFIED DR. FREEDMAN WHO INFORMED CM THAT HE WILL ORDER BLOOD GAS ON FRIDAY TO DETERMINE RESPIRATORY DISCHARGE NEEDS AT THAT TIME. PT HAS SIGNED RIGHT OF CHOICE FOR [facility] ALREADY. PT REPORTS HER DAUGHTER, WHO IS A REGISTERED NURSE, WILL BE HERE FRIDAY OF NEXT WEEK TO TAKE CARE OF PT AT HOME. PT PLANS TO DISCHARGE HOME WITH FAMILY AND [facility]. CM TO FOLLOW AND ASSIST NEEDED. ROSANNA MONTAÑO DCP- Discharge Planning Updated by [id number]: Sandor Carrasquillo on 05/28/19 7:[address] Patient Name: TROY HAYWOOD Encounter No: [id number] : 1955 Primary Insurance: [place] Anticipated DC Date: Planned Disposition: Inpatient Rehab External Planned Provider: [facility] DCP follow-up note: CM FAXED REFERRAL UPDATE TO [facility] AT [phone]. CM WAITING ADMISSION DETERMINATION FROM [facility] IN [place]. ROSANNA Montaño DCP- Discharge Planning Updated by [id number]: Sandor Carrasquillo on 05/27/19 2:[address] Patient Name: TROY HAYWOOD Encounter No: [id number] : 1955 Primary Insurance: [place] Anticipated DC Date: Planned Disposition: Inpatient Rehab External Planned Provider: [facility] DCP follow-up note: CM FAXED REFERRAL UPDATE TO [facility] AT [phone]. CM WAITING ADMISSION DETERMINATION FROM [facility] IN [place]. Sandor Carrasquillo, CASE MANAGEMENT Appended by Sandor Carrasquillo on 05/27/2019 14:41 CDT: CM CALLED [facility], , LEFT MESSAGE ASKING FOR UPDATE ON REFERRAL AND TO KNOW IF THEY ARE STILL CONSIDERING PT FOR REHAB. CM WAITING ADMISSION DETERMINATION FROM [facility] IN [place]. Sandor Carrasquillo, CASE MANAGEMENT DCP- Discharge Planning Updated by [id number]: Jesica Osiel on 05/26/19 4:[address] Patient requested Trapeze bar to allow her to sit up in hospital bed. CM spoke Dr. Lawson and obtained approval for Trapeze bar. CM notified Radha in materials management of request for Trapeze bar. CM completed and gave Radha the order form for the Trapeze bar. Trapeze bar will be delivered. CM notified patient's CM, Christiano Carrasquillo, on status of Trapeze bar. DCP- Discharge Planning Updated by [id number]: Sandor Carrasquillo on 05/26/19 3:[address] Patient Name: TROY HAYWOOD Encounter No: [id number] : 1955 Primary Insurance: MEDICAID [facility] DC Date: Planned Disposition: Inpatient Rehab External Planned Provider: [facility] DCP follow-up note: CM SPOKE TO PT'S DAUGHTER VIA PHONE, HOUSTON SALGADO, . CM OBTAINED PERMISSION FROM PT TO DISCUSS CARE, TREATMENT AND DISCHARGE PLANNING WITH HOUSTON. HOUSTON INFORMED CM THAT PT WAS IN REHAB AT [facility] LAST YEAR AND THEY WANT REFERRED TO [facility] AGAIN. CHRISTOPHER DISCUSSED PT'S VERY LOW LEVEL OF PHYSICAL CONDITIONING. PT'S DAUGHTER FEELS THAT PT CAN PARTICIPATE WITH THERAPY WITH GOAL TO RETURN HOME PREVIOUS WITH ABILITY TO TRANSFER TO ELECTRIC SCOOTER AND HOME HEALTH FOR CONTINUED HOME SERVICES. HOUSTON VERIFIED THAT PT HAS NO ADULTS ABLE TO LIVE WITH AND ASSIST PT AT HOME AT THIS TIME. HOUSTON ASKED ABOUT [facility] SERVICES THAT MAY TAKE PT AT NO COSTS DUE TO INCOME. CM INFORMED HOUSTON THAT CM WAS NOT FAMILIAR WITH ANY OF THESE PROGRAMS. HOUSTON WOULD LIKE TO HAVE PT EVALUATED FOR REHAB AT [facility] PRIOR TO ANY CONSIDERATION OF PENITENTIARY PLACEMENT PT WILL NOT GET THERAPY THERE. CM SPOKE TO PT WHO IS IN AGREEMENT WITH PLAN. CM CALLED [facility], , NOTIFIED OF REHAB REQUEST; PT HAS ONLY 24 ACUTE DAYS THAT STARTED IN JANUARY, IT DEPENDS ON HOW MANY HAVE BEEN ALREADY USED, PT'S CONDITION AND NEEDS THAT WOULD HAVE TO BE MET IN THE REMAINING DAYS THAT PT HAS TO USE FOR REHAB . CM FAXED REFERRALINFORMATION TO [facility] WITH CURRENT MAR AT [phone]. CM WAITING ADMISSION DETERMINATION FROM [facility] IN [place]. Sandor Carrasquillo, CASE MANAGEMENT Appended by Sandor Carrasquillo on 05/26/2019 15:24 CDT: CM MET WITH PT, GRANDDAUGHTER, DAUGHTER HOUSTON VIA PHONE WITH CM JEWELRY FINISHER, UNIT NURSE PAINTER SPRAY, REPIRATORY THERAPIST AND JEWELRY FINISHER OF THERAPY SERVICES REGARDING DISCHARGE PLANNING. CONCERNS OF PT'S PLAN TO GO HOME IN CURRENT CONDITION DISCUSSED. PT AND DAUGHTER HAVE ALREADY ASKED FOR REFERRAL TO [facility] RE[facility]AB, CM HAS SENT IT AND WAITING DETERMINATION. PLAN "B" WAS AGREED TO BE NURSING FACILITY IF NOT ACCEPTED TO [facility] AND THAT CM WOULD ATTEMPT TO FIND ONE THAT MAY DONATE REHAB SERVICES. PT'S DAUGHTER IS RESEARCHING ZEKE FUNDING FROM [facility] FOR REHAB SERVICES. CM WAITING ADMISSION DETERMINATION FROM [facility] IN [place]. Sandor Carrasquillo, CASE MANAGEMENT DCP- Discharge Planning Updated by [id number]: Sandor Carrasquillo on 05/25/19 2:[address] Patient Name: RTOY HAYWOOD Encounter No: [id number] : 1955 Primary Insurance: MEDICAID [facility] Date: Planned Disposition: Home HEALTH External Planned Provider: [facility], VISITING NURSES [facility] follow-up note: CM MET WITH PT IN ROOM TO DISCUSS DISCHARGE NEEDS AND PLANNING. CM DISCUSSED AVAILABILITY OF HOME HEALTH, REHAB SERVICES AND MEDICAL EQUIPMENT. PT REFUSES DETENTION FACILITY PLACEMENT. PT STATES PLAN TO RETURN HOME. 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 PT WAS ABLE TO AMBULATE SMALL DISTANCES AND TRANSFER SELF FROM BED TO ELECTRIC WHEELCHAIR AT HOME. PT THINKS SHE IS GOING TO BE ABLE TO TRANSFER SELF TO GO BACK HOME. PT WANTS HOME HEALTH RESUMED TO GO HOME. CM EXPRESSED CONCERN OF PT'S CURRENT LEVEL OF FUNCTIONING AND RETURNING HOME. PT DENIES HAVING FRIENDS OR FAMILY TO ASSIST WITH HER CARE AT HOME BUT IS NOT GOING TO A PENITENTIARY. PT THINKS SHE WILL NEED AN AMBULANCE FOR TRANSPORT HOME HER ELECTRIC WHEELCHAIR IS THERE. CM EXPLAINED TO PT THAT SHE WILL NEED TO DEMONSTRATE WITH THERAPY THE ABILITY TO TRANSFER AND SIT IN CHAIR FOR DISCHARGE. PT STATED UNDRESTANDING. CHOICE FOR [facility] [address] VISITING NURSES HOME HEALTH SIGNED. 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 PT REFUSED NURSING FACILITY PLACEMENT. PT WILL NEED TO DEMONSTRATE ABILITY TO TRANSFER AND SIT IN CHAIR FOR DISCHARGE SHE HAS ELECTRIC WHEELCHAIR AT HOME. CM TO ARRANGE HOME HEALTH RESUMPTION WITH [facility] VISITING NURSES AGENCY IN [place] FOR DISCHARGE HOME. CM TO CONTINUE TO FOLLOW AND ASSIST NEEDED. Sandor Carrasquillo, CASE MANAGEMENT DCP- Discharge Planning Updated by [id number]: Aleisha Monroe on 05/19/19 7:[address] Patient Name: TROY HAYWOOD Admission Status: ER Accout number: [id number] Admission Date: 05-14-2019 : 1955 Admission Diagnosis: Attending: AFBIO PINEDA Current LOS: 5 Anticipated DC Date: Planned Disposition: Home or Self Care Primary Insurance: [place]ID [place] Discharge Planning Comments: CM met with patient and daughter to complete initial dc planning assessment. Patient recently extubated earlier today. CM educated patient on the CM role and verbal consent given by patient to complete assessment. Patient lives at home with her two young grand-daughters where she is independent with her care. At discharge patient plans to return home and feels this is a safe discharge. CM discussed availability of home health, rehab services, and medical equipment. Patient has Home 02 and HH with unknown providers. CM will f/u with patient @ later date to see if she is able to give providers. Patient denied known discharge needs at this time. CM will continue to follow and will assist as needed with dc plans/needs. Lens Matcher: Aleisha Monroe DCPIA - Discharge Planning Initial Assessment Updated by [id number]: Sandor Carrasquillo on 05/28/19 9:36 am * How many steps to enter\\exit or inside your home? * PCP uncertain ? * Pharmacy [facility] * Preadmission Environment Home with Family * ADLs Independent * Other Equipment HOME 02, WALKER, SCOOTER, BSC, SC * List name and contact numbers for known caregivers / representatives who currently or will assist patient after discharge: CHEPE SUN - DAUGHTER- [phone] HOUSTON SALGADO, DTR - [phone] * Verbal permission to speak to the caregivers and representatives has been obtained from the patient. Yes * Community resources currently utilized Home Health * Please name any agencies selected above. [facility] * Additional services required to return to the preadmission environment? No * Can the patient safely return to the preadmission environment? Yes * Has this patient been hospitalized within the prior 30 days at any hospital? No Coverage Notice Reviewer: NAYLA Carrasquillo Notice Issued Date-Time: 05/25/2019 14:05 Notice Type: Patient Choice Letter Notice Delivered To: Patient Relationship to Patient: Consulting Technical Manager Name: Delivery Method: HAND - Hand Delivered Marry Days: Prior Verbal Notification: Recipient Understood Notice: Yes Recipient Signature: Yes Med Rec Note Co-signed by Attending: Coverage Notice Comment: [facility]- VISITING NURSES [facility]) Reviewer: NAYLA Carrasquillo Notice Issued Date-Time: 05/31/2019 14:50 Notice Type: Patient Choice Letter Notice Delivered To: Patient Relationship to Patient: Consulting Technical Manager Name: Delivery Method: HAND - Hand Delivered Marry Days: Prior Verbal Notification: Recipient Understood Notice: Yes Recipient Signature: Yes Med Rec Note Co-signed by Attending: Coverage Notice [facility] Reviewer: NAYLA Carrasquillo Notice Issued Date-Time: 06/09/2019 9:55 Notice Type: Patient Choice Letter Notice Delivered To: Patient Relationship to Patient: Consulting Technical Manager Name: Delivery Method: HAND - Hand Delivered Marry Days: Prior Verbal Notification: Recipient Understood Notice: Yes Recipient Signature: Yes Med Rec Note Co-signed by Attending: Coverage Notice Comment: CHARLES OR ANY ACCEPTING DETENTION FACLITY Last DP export: 06/09/19 3:37 Patient Name: TROY HAYWOOD Page [phone] at 1612 All edits/amendments must be made on the electronic document DICTATION DATE: 06/10/191611 COUNTER FORMER: MISHEL 06/10/191611 RPT#: [id number] DC DATE: STATUS: ADM IN [facility] [address] [facility] [place] [address] END OF REPORT
--- NOTE | 2019-06-10 16:20 | MORECARE ---
CASE MANAGEMENT DISCHARGE SUMMARY PATIENT: TROY HAYWOOD UNIT: [id number] ADM DATE: 05/14/19 AGE: 64 : 57 SEX: F ROOM/BED: D.2140 AUTHOR: DAYDAYDOC PHYSICIAN: REFERRING PHYSICIAN: FABIO PINEDA MD DATE OF SERVICE: 06/10/19 Discharge Plan Patient Name: TROY HAYWOOD Facility: [facility]:[place] : 1955 Planned Disposition: Nursing Facility YUN Cert Anticipated Discharge Date: 06/11/19 Discharge Date: Expected LOS: 28 Initial Reviewer: [id number] Initial Review Date: 05/19/2019 Generated: 06/10/19 5:20 pm Comments DCP- Discharge Planning Updated by [id number]: Sandor Carrasquillo on 06/09/19 3:[address] Patient Name: TROY HAYWOOD Encounter No: [id number] : 1955 Primary Insurance: MEDICAID [place] Anticipated DC Date: 06-10-2019 Planned Disposition: Nursing Facility YUN Cert External Planned Provider: FIRST ACCEPTING FACILITY DCP follow-up note: CM SPOKE TO PT AND DAUGHTER, CHEPE, THEY WILL LET CM SEEK SHELTER PLACEMENT FOR THEM TO CONSIDER BUT STILL DO NOT WANT DIRECTOR PRODUCT DEVELOPMENT CARE IF THEY CAN OBTAIN REHAB THROUGH THE [facility]. DAUGHTER ADVISED SHE HAS CONFIRMED RECEIPT OF THE APPLICATION FAXED TO THE [facility] AND IS IN PROCESS OF REVIEW. DAUGHTER ASKED CM TO CHECK INTO REHAB'S THAT MAY HAVE [facility] AFFILIATION. CM CALLED [facility], , REQUESTED ASSISTANCE IN SENIOR CARE CARE PLACEMENT WITH INTENT TO RETURN HOME. CHAR STATES THAT SHE MAY HAVE HOME'S WILL ACCEPT BARIATRIC PATIENT AND WILL ATTEMPT PLACEMENT. CHAR WILL MEET WITH PT LATER TODAY. CM FAXED REFERRAL TO [facility] AT [phone]. CM SPOKE TO TROY MIMS OF [facility], TROY INFORMED CM THAT SHE HAS NO HOMES IN HER GROUP THAT MAY ASSIST WITH PLACEMENT. CM CALLED [facility], WAS ADVISED BY [facility] THAT THEY WILL NOT CONSIDER FOR TREY CARE, THEY ARE NOT AFFILIATED WITH [facility]. CM CALLED [facility], , SPOKE TO CHELO WHO INFORMED CM THAT THEY ARE NOT AFFILIATED WITH [facility] BUT WILL CONSIDER PT FOR TREY REHAB. CM FAXED REFERRAL TO [facility] AT [phone]. CM CALLED [facility] IN [place], , SPOKE TO DHEERAJ WHO REPORTS THEY HAVE NO OPEN REHAB BEDS AND HAVE NO PROJECTED DISCHARGES SOON. THEY DO NOT HAVE WEIGHT LIMITS. DHEERAJ DID NOT WANT REFERRAL FAXED, SHE WILL REPORT TO BREN WHO WILL [facility] REGARDING APPLICATION STATUS AND CALL CM TOMORROW, 06-10-19. CM NOTIFIED PT IN ROOM OF PROGRESS. PT STATES SHE MAY BE ABLE TO TRANSFER SELF AND GO HOME BEFORE CM FINDS REHAB FOR HER. - CM WAITING ADMISSION DETERMINATION FROM [facility] FOR SENIOR CARE CARE PLACEMENT IN ONE OF HER AFFILIATED NURSING HOMES. - CM WAITING ADMISSION DETERMINATION FROM [facility] FOR [facility] BED. - CM WAITING RETURN CALL FROM [facility] IN [place] REGARDING TREY REHAB. Sandor Carrasquillo, CASE MANAGEMENT DCP- Discharge Planning Updated by [id number]: Sandor Carrasquillo on 06/04/19 4:[address] Patient Name: TROY HAYWOOD Encounter No: [id number] : 1955 Primary Insurance: [place]ID [place] Anticipated DC Date: 06-02-2019 Planned Disposition: Nursing Facility YUN Cert External Planned Provider: TO BE DETERMINED DCP follow-up note: CM SPOKE TO PT AND DAUGHTER CHEPE, IN ROOM. PT IS AND FOR PAST 10 YEARS, BUT NOT LEGALLY. THEY CANNOT QUALIFY FOR MEDICAID FOR SENIOR CARE CARE DUE TO NOT HAVING SPOUSE FINANICAL INFORMATION. PT AND DAUGHTER BOTH STATE THAT THEY DO NOT WANT TO PUT PT INTO SENIOR CARE SHELTER CARE WHERE SHE WILL JUST LAY IN THE BED. THEY DO NOT WANT FURTHER SHELTER REFERRALS FAXED OUT. CM DISCUSSED THAT PT IS STABLE FOR DISCHARGE MEDICALLY. PT'S DAUGHTER REPORTS PT IS NOT HAVING BOWEL MOVEMENTS AND THAT THE FECES COMING OUT IS COMING AROUND AN IMPACTION AND NO ONE IS ADDRESSING THIS. CM NOTIFIED TOBY THOMAS WHO PROVIDED ORDERS FOR MEDICATION TO TREAT CONDITION. BEDSIDE NURSE NOTIFIED. PT'S DAUGHTER PROVIDED CM WITH 77 PAGES AND ASKED CM TO FAX TO [facility] FOR FINANCIAL ASSISTANCE REGARDING REHAB SERVICES FOR PT. CM FAXED TO [facility] FINANCIAL ASSISTANCE [facility]GRAM AT [phone]. PT'S DAUGHTER ADVISED THAT IF APPROVED, PT WILL HAVE TO GO TO [facility]. PT WAS DECLINED SENIOR CARE CARE PLACEMENT AT [facility]; PT AND FAMILY DECLINE TO HAVE FURTHER REFERRALS SENT OUT. FAMILY IS TRYING TO SECURE FINANCIAL ASSISTANCE FOR REHAB SERVICES THROUGH [facility]. CM TO CONTINUE TO FOLLOW AND ASSIST. Sandor Carrasquillo, CASE MANAGEMENT DCP- Discharge Planning Updated by [id number]: Sandor Carrasquillo on 06/04/19 11:[address] Patient Name: TROY HAYWOOD Encounter No: [id number] : 1955 Primary Insurance: MEDICAID [facility] DC Date: 06-02-2019 Planned Disposition: Nursing Facility [facility] External Planned Provider: WAITING FAMILY DECISION DCP follow-up note: CM RECEIVED CALL FROM ANNIE OF [facility] WHO ADVISED CM THAT PT HAS BEEN FIANCIALLY DENIED FOR PLACEMENT. CM SPOKE TO PT IN ROOM WHO ADVISED THAT SHE UNDERSTOOD THEY WERE JUST GOING TO LEAVE HER LAYING IN BED FOR A MONTH AND NOT GIVE HER ANY REHAB SERVICES. CM EXPLAINED THAT MEDICAID DOES NOT PAY FOR REHAB SERVICES, ONLY SENIOR CARE CARE AND PT WOULD RECEIVE WHAT THEY CALL "RESTORATIVE CARE" FROM STAFF AT ANY SHELTER, NOT THERAPY SERVICES. PT STATES SHE IS NOW ABLE TO STAND UP WITH THERAPY HERE. CM EXPLAINED THAT PT IS GETTING 8 TO 16 MINUTES OF THERAPY PER DAY AND THAT ALTHOUGH CM WAS HAPPY WITH PROGRESSION, PT IS MEDICALLY STABLE TO LEAVE THE HOSPITAL AND THAT SHE WOULD RECEIVE MORE THERAPY AT HOME WITH HOME HEALTH THAN IN THIS ACUTE HOSPITAL SETTING. PT STATES SHE IS NOT SURE WHAT HAPPENED, THAT CHEPE IS TAKING CARE OF THIS FOR HER AND THAT CHEPE WILL BE TO THE HOSPITAL IN A LITTLE WHILE TO SPEAK TO CM; PT BELIVES THAT CHEPE IS AGAIN WORKING ON TRYING TO GET TREY REHAB CARE THROUGH THE [facility] PROGRAM. PT HAS BEEN FINANCIALLY DECLINED FOR SENIOR CARE CARE PLACEMENT BY [facility]. PT DEFERRING PLANNING TO HER DAUGHTER, CHEPE. CM WAITING FAMILY TO ARRIVE TO DISCUSS FURTHER DISCHARGE PLANNING. Sandor Carrasquillo, CASE MANAGEMENT DCP- Discharge Planning Updated by [id number]: Sandor Carrasquillo on 06/03/19 7:[address] Patient Name: TROY HAYWOOD Encounter No: [id number] : 1955 Primary Insurance: [place]ICAID [place] Anticipated DC Date: 06-02-2019 Planned Disposition: Nursing Facility YUN Cert External Planned Provider: [facility] MEDICAID BED DISCHARGE PLANNING NOTE: CM FAXED REFERRAL UPDATE TO [facility] AT [phone]. CM WAITING ADMISSION DETERMINATION FROM [facility] FOR DIRECTOR PRODUCT DEVELOPMENT CARE. WAITING FAMILY TO PROVIDE FINANCIAL INFORMATION FOR SENIOR CARE CARE MEDICAID APPLICATION TO FACILITY. ROSANNA Montaño DCP- Discharge Planning Updated by [id number]: Sandor Carrasquillo on 06/02/19 3:[address] Patient Name: TROY HAYWOOD Encounter No: [id number] : 1955 Primary Insurance: [place]ID [place] Anticipated DC Date: 06-02-2019 Planned Disposition: Nursing Facility YUN Cert External Planned Provider: [facility] MEDICAID BED DCP follow-up note: CM FAXED REFERRAL UPDATE TO [facility] AT [phone]. CM WAITING ADMISSION DETERMINATION FROM [facility] FOR DIRECTOR PRODUCT DEVELOPMENT CARE. Sandor Carrasquillo CASE MANAGEMENT Appended by Sandor Carrasquillo on 06/02/2019 16:50 LOGGING SPECIALIST: CM RECEIVED CALL FROM LUIS OF [facility], , THEY RECEIVED THE UPDATE BY FAX AND WILL CONTACT FAMILY REGARDING FINANCIALS. LUIS REPORTS THEY ARE STILL WAITING ON NURSING TO ACCEPT FOR DIRECTOR PRODUCT DEVELOPMENT CARE AND WILL ALSO NEED FINANCIAL CLEARANCE TO ENTER THE FACILITY. CM WAITING ADMISSION DETERMINATION FROM [facility] FOR DIRECTOR PRODUCT DEVELOPMENT CARE. [facility] CONTACTING FAMILY TO ASSIST WITH FINANCIAL INFORMATION FOR DIRECTOR PRODUCT DEVELOPMENT CARE MEDICAID APPLICATION. ROSANNA Montaño DCP- Discharge Planning Updated by [id number]: Sandor Carrasquillo on 06/01/19 4:[address] Patient Name: TROY HAYWOOD Encounter No: [id number] : 1955 Primary Insurance: [place]ID [place] Anticipated DC Date: 06-02-2019 Planned Disposition: Nursing Facility YUN Cert External Planned Provider: [facility], DIRECTOR PRODUCT DEVELOPMENT CARE MEDICAID BED DCP follow-up note: CM MET WITH PT AND DAUGHTER HOUSTON, WHO HAS MADE IT FROM [place]. UPDATE PROVIDED. CM CALLED [facility], DALE INFORMED CM THAT REFERRAL FROM CM AND [facility] WAS RECEIVED, STAFF IN MEETING TODAY AND THEY WILL FINISH ADMISSION REVIEW TOMORROW, 06-02-19. CM NOTIFIED PT AND DAUGHTER IN ROOM. CM WAITING ADMISSION DETERMINATION FROM [facility] FOR SENIOR CARE CARE. Sandor Carrasquillo CASE MANAGEMENT DCP- Discharge Planning Updated by [id number]: Sandor Carrasquillo on 05/31/19 3:[address] Patient Name: TROY HAYWOOD Encounter No: [id number] : 1955 Primary Insurance: [place]ID [place] Anticipated DC Date: 06-01-2019 Planned Disposition: Nursing Facility [facility] External Planned Provider: [facility], DIRECTOR PRODUCT DEVELOPMENT CARE MEDICAID BED DCP follow-up note: AFTER SEVERAL VISITS WITH PT IN ROOM, PHONE CALLS WITH DAUGHTERS, [facility] AND [facility], PT DECIDED TO CONSENT TO 30 DAYS OF DIRECTOR PRODUCT DEVELOPMENT CARE AT [facility] AFTER PT'S DAUGTHERS, WITH AIDE [facility] WHO WILL CONSIDER PT FOR CARE. PT SIGNED CHOICE. CM FAXED REFERRAL INFORMATION TO [facility] AT [phone]. CM WAITING ADMISSION DETERMINATION FROM [facility] FOR SENIOR CARE CARE. Sandor Carrasquillo CASE DEVAUGHN DCP- Discharge Planning Updated by [id number]: Sandor Carrasquillo on 05/28/19 3:[address] Patient Name: TROY HAYWOOD Encounter No: [id number] : 1955 Primary Insurance: [place]ID [place] Anticipated DC Date: 06-02-2019 Planned Disposition: Home with [facility] External Planned Provider: [facility] DCP follow-up note: CM RECEIVED CALL FROM PT'S DAUGHTER, CHEPE, WHO VERIFIED THAT SHE WILL COME NEXT WEEK TO STAY WITH PT FOR TWO OR THREE WEEKS TO CARE FOR PT AT HOME. CHEPE WILL DISCUSS WITH HER MOTHER THAT SHE WILL HAVE TO BE ABLE TO STAND AND TRANSFER FOR CHEPE TO CARE FOR HER. CM REVIEWED THERAPY NOTES TO PRESENT. 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 PT HAS BEDSIDE COMMODE AND WHEELCHAIR AT HOME. CHEPE REPORTS NEED OF [facility] RESUMPTION. CHEPE WILL DISCUSS WITH PT AND TRY TO MOTIVATE HER TO MEET THERAPY GOALS PRIOR TO ARRIVAL ON NEXT FRIDAY OR FRIDAY. PT'S DAUGHTER PLANS TO TAKE PT HOME NEXT FRIDAY OR FRIDAY, THEY WILL NEED [facility] RES[facility]TION, DENIES FURTHER NEEDS. CM TO FOLLOW AND ASSIST NEEDED. Sandor Carrasquillo, CASE MANAGEMENT DCP- Discharge Planning Updated by [id number]: Sandor Carrasquillo on 05/28/19 2:[address] Patient Name: TROY HAYWOOD Encounter No: [id number] : 1955 Primary Insurance: [place]ID [place] Anticipated DC Date: Planned Disposition: Nursing Facility YUN Cert External Planned Provider: TO BE DETERMINED DCP follow-up note: CM [facility], SHE INFORMED CM THAT UPDATES HAVE BEEN RECEIVED, PT IS NOT MAKING ENOUGH PROGRESS WITH THERAPY THAT THEY DO NOT BELIEVE THAT PT WILL BE ABLE TO ACHIEVE THERAPY GOALS IN THE REMAINING 10 DAYS OF ACUTE DAYS THAT PT HAS REMAINING. CM NOTIFIED PT AND PROVIDED PT WITH NURSING FACILITY LISTING OF ALL AVAILABLE FACILITIES WITHIN [address] [place]. PT WILL SPEAK TO HER DAUGHTER AND NOTIFY CM OF HER CHOICES. CM CALLED [facility], , TWICE; AUTOMATED MESSAGE INFORMED CM THAT THE NUMBER WAS RESTRICTED OR CURRENTLY UNAVAILABLE. CM WAITING PT AND FAMILY TO PROVIDE NURSING FACILITY CHOICES FOR DIRECTOR PRODUCT DEVELOPMENT CARE. Sandor Carrasquillo, CASE MANAGEMENT Appended by Sandor Carrasquillo on 05/28/2019 12:07 CDT: CM SPOKE TO PT IN ROOM, NOTIFIED PT THAT CM TRIED AND COULD NOT REACH DAUGHTER HOUSTON VIA PHONE. PT REPORTS SHE SPOKE TO [facility] WHO TOLD HER THAT [facility] WILL NOT TAKE HER DUE TO WEIGHT; PT'S DAUGHTER TOLD PT THAT [facility] PROB[facility] WILL NOT TAKE HER. PT REPORTS THERE IS ONE IN [place] THAT MIGHT CONSIDER HER. CM OFFERED CHOICE FORM FOR SIGNATURE SO THAT CM COULD SEND REFERRALS AND BEGIN CALLING TO FIND PLACEMENT. PT REFUSED AND STATES SHE HAS A DAUGHTER, CHEPE, WHO IS A REGISTERED NURSE, THAT MAY BE COMING TO TAKE CARE OF PT AT HOME. PT'S DAUGHTER HOUSTON IS CALLING DAUGHTER CHEPE TO DISCUSS THE OPTION. PT STATES SHE WILL LET CM KNOW THE OUTCOME AND IF SHE WANTS CM TO EXPLORE SHELTER CARE FOR HER. CM WAITING PT AND FAMILY TO PROVIDE NURSING FACILITY CHOICES AND FOR PT TO SIGN CONSENT FOR SHELTER PLACEMENT. PT IS NOW HOPEFUL THAT HER DAUGHTER WHO IS A REGISTERED NURSE WILL COME AND STAY WITH PT AND TAKE CARE OF HER AT HOME. SANDOR CARRASQUILLO, CASE MANAGEMENT Appended by Sandor Carrasquillo on 05/28/2019 14:27 CDT: CM RECEIVED MESSAGE THAT PT WANTS TO SEE CM. CM MET WITH PT IN ROOM WHO INFORMED CM THAT SHE HIS NOT GOING TO A SHELTER, THAT HER DAUGHTER, CHEPE, WHO IS A NURSE, WILL BE HERE NEXT FRIDAY TO TAKE HER HOME AND WILL TAKE CARE OF PT AT HOME. PT ASKED FOR [facility] RES[facility]TION. CM DISCUSSED POSSIBLE NEED OF DEBORAH LIFT AND ASKED ABOUT ADDITIONAL EQUIPMENT. PT THINKS BY NEXT WEEK, SHE WILL BE ABLE TO TRANSFER WITHOUT AIDE OF LIFT DEVICE. CM NOTIFIED DR. FREEDMAN WHO INFORMED CM THAT HE WILL ORDER BLOOD GAS ON FRIDAY TO DETERMINE RESPIRATORY DISCHARGE NEEDS AT THAT TIME. PT HAS SIGNED RIGHT OF CHOICE FOR [facility] ALREADY. PT REPORTS HER DAUGHTER, WHO IS A REGISTERED NURSE, WILL BE HERE FRIDAY OF NEXT WEEK TO TAKE CARE OF PT AT HOME. PT PLANS TO DISCHARGE HOME WITH FAMILY AND [facility]. CM TO FOLLOW AND ASSIST NEEDED. ROSANNA MONTAÑO DCP- Discharge Planning Updated by [id number]: Sandor Carrasquillo on 05/28/19 7:[address] Patient Name: TROY HAYWOOD Encounter No: [id number] : 1955 Primary Insurance: [place]ID [place] Anticipated DC Date: Planned Disposition: Inpatient Rehab External Planned Provider: [facility] DCP follow-up note: CM FAXED REFERRAL UPDATE TO [facility] AT [phone]. CM WAITING ADMISSION DETERMINATION FROM [facility] IN [place]. ROSANNA Montaño DCP- Discharge Planning Updated by [id number]: Sandor Carrasquillo on 05/27/19 2:[address] Patient Name: TROY HAYWOOD Encounter No: [id number] : 1955 Primary Insurance: [place]ID [place] Anticipated DC Date: Planned Disposition: Inpatient Rehab External Planned Provider: [facility] DCP follow-up note: CM FAXED REFERRAL UPDATE TO [facility] AT [phone]. CM WAITING ADMISSION DETERMINATION FROM [facility] IN [place]. Sandor Carrasquillo, CASE MANAGEMENT Appended by Sandor Carrasquillo on 05/27/2019 14:41 CDT: CM CALLED [facility], , LEFT MESSAGE ASKING FOR UPDATE ON REFERRAL AND TO KNOW IF THEY ARE STILL CONSIDERING PT FOR REHAB. CM WAITING ADMISSION DETERMINATION FROM [facility] IN [place]. Sandor Carrasquillo, CASE MANAGEMENT DCP- Discharge Planning Updated by [id number]: Jesica Osiel on 05/26/19 4:[address] Patient requested Trapeze bar to allow her to sit up in hospital bed. CM spoke Dr. Lawson and obtained approval for Trapeze bar. CM notified Radha in materials management of request for Trapeze bar. CM completed and gave Radha the order form for the Trapeze bar. Trapeze bar will be delivered. CM notified patient's CM, Christiano Carrasquillo, on status of Trapeze bar. DCP- Discharge Planning Updated by [id number]: Sandor Carrasquillo on 05/26/19 3:[address] Patient Name: TROY HAYWOOD Encounter No: [id number] : 1955 Primary Insurance: MEDICAID [facility] DC Date: Planned Disposition: Inpatient Rehab External Planned Provider: [facility] DCP follow-up note: CM SPOKE TO PT'S DAUGHTER VIA PHONE, HOUSTON SALGADO, . CM OBTAINED PERMISSION FROM PT TO DISCUSS CARE, TREATMENT AND DISCHARGE PLANNING WITH HOUSTON. HOUSTON INFORMED CM THAT PT WAS IN REHAB AT [facility] LAST YEAR AND THEY WANT REFERRED TO [facility] AGAIN. CHRISTOPHER DISCUSSED PT'S VERY LOW LEVEL OF PHYSICAL CONDITIONING. PT'S DAUGHTER FEELS THAT PT CAN PARTICIPATE WITH THERAPY WITH GOAL TO RETURN HOME PREVIOUS WITH ABILITY TO TRANSFER TO ELECTRIC SCOOTER AND HOME HEALTH FOR CONTINUED HOME SERVICES. HOUSTON VERIFIED THAT PT HAS NO ADULTS ABLE TO LIVE WITH AND ASSIST PT AT HOME AT THIS TIME. HOUSTON ASKED ABOUT [facility] REHAB SERVICES THAT MAY TAKE PT AT NO COSTS DUE TO INCOME. CM INFORMED HOUSTON THAT CM WAS NOT FAMILIAR WITH ANY OF THESE PROGRAMS. HOUSTON WOULD LIKE TO HAVE PT EVALUATED FOR REHAB AT [facility] PRIOR TO ANY CONSIDERATION OF SHELTER PLACEMENT PT WILL NOT GET THERAPY THERE. CM SPOKE TO PT WHO IS IN AGREEMENT WITH PLAN. CM CALLED [facility], , NOTIFIED OF REHAB REQUEST; PT HAS ONLY 24 ACUTE DAYS THAT STARTED IN JANUARY, IT DEPENDS ON HOW MANY HAVE BEEN ALREADY USED, PT'S CONDITION AND NEEDS THAT WOULD HAVE TO BE MET IN THE REMAINING DAYS THAT PT HAS TO USE FOR REHAB . CM FAXED REFERRALINFORMATION TO [facility] WITH CURRENT MAR AT [phone]. CM WAITING ADMISSION DETERMINATION FROM [facility] IN [place]. Sandor Carrasquillo, CASE MANAGEMENT Appended by Sandor Carrasquillo on 05/26/2019 15:24 CDT: CM MET WITH PT, GRANDDAUGHTER, DAUGHTER HOUSTON VIA PHONE WITH CM PASSENGER CAR INSPECTOR, UNIT NURSE TOWBOAT PILOT, REPIRATORY THERAPIST AND PASSENGER CAR INSPECTOR OF THERAPY SERVICES REGARDING DISCHARGE PLANNING. CONCERNS OF PT'S PLAN TO GO HOME IN CURRENT CONDITION DISCUSSED. PT AND DAUGHTER HAVE ALREADY ASKED FOR REFERRAL TO [facility], CM HAS SENT IT AND WAITING DETERMINATION. PLAN "B" WAS AGREED TO BE NURSING FACILITY IF NOT ACCEPTED TO [facility] AND THAT CM WOULD ATTEMPT TO FIND ONE THAT MAY DONATE REHAB SERVICES. PT'S DAUGHTER IS RESEARCHING ZEKE FUNDING FROM [facility] FOR REHAB SERVICES. CM WAITING ADMISSION DETERMINATION FROM [facility] IN [place]. Sandor Carrasquillo, CASE MANAGEMENT DCP- Discharge Planning Updated by [id number]: Sandor Carrasquillo on 05/25/19 2:[address] Patient Name: TROY HAYWOOD Encounter No: [id number] : 1955 Primary Insurance: MEDICAID [facility] Date: Planned Disposition: Home HEALTH External Planned Provider: [facility], VISITING NURSES [facility] follow-up note: CM MET WITH PT IN ROOM TO DISCUSS DISCHARGE NEEDS AND PLANNING. CM DISCUSSED AVAILABILITY OF HOME HEALTH, REHAB SERVICES AND MEDICAL EQUIPMENT. PT REFUSES LONG TERM FACILITY PLACEMENT. PT STATES PLAN TO RETURN HOME. 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 PT WAS ABLE TO AMBULATE SMALL DISTANCES AND TRANSFER SELF FROM BED TO ELECTRIC WHEELCHAIR AT HOME. PT THINKS SHE IS GOING TO BE ABLE TO TRANSFER SELF TO GO BACK HOME. PT WANTS HOME HEALTH RESUMED TO GO HOME. CM EXPRESSED CONCERN OF PT'S CURRENT LEVEL OF FUNCTIONING AND RETURNING HOME. PT DENIES HAVING FRIENDS OR FAMILY TO ASSIST WITH HER CARE AT HOME BUT IS NOT GOING TO A SHELTER. PT THINKS SHE WILL NEED AN AMBULANCE FOR TRANSPORT HOME HER ELECTRIC WHEELCHAIR IS THERE. CM EXPLAINED TO PT THAT SHE WILL NEED TO DEMONSTRATE WITH THERAPY THE ABILITY TO TRANSFER AND SIT IN CHAIR FOR DISCHARGE. PT STATED UNDRESTANDING. CHOICE FOR [facility] VISITING NURSES HOME HEALTH SIGNED. 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 PT REFUSED NURSING FACILITY PLACEMENT. PT WILL NEED TO DEMONSTRATE ABILITY TO TRANSFER AND SIT IN CHAIR FOR DISCHARGE SHE HAS ELECTRIC WHEELCHAIR AT HOME. CM TO ARRANGE HOME HEALTH RESUMPTION WITH [facility] VISITING NURSES AGENCY IN [place] FOR DISCHARGE HOME. CM TO CONTINUE TO FOLLOW AND ASSIST NEEDED. Sandor Carrasquillo, CASE MANAGEMENT DCP- Discharge Planning Updated by [id number]: Aleisha Monroe on 05/19/19 7:[address] Patient Name: TROY HAYWOOD Admission Status: ER Accout number: [id number] Admission Date: 05-14-2019 : 1955 Admission Diagnosis: Attending: FABIO PINEDA Current LOS: 5 Anticipated DC Date: Planned Disposition: Home or Self Care Primary Insurance: MEDICAID [place] Discharge Planning Comments: CM met with patient and daughter to complete initial dc planning assessment. Patient recently extubated earlier today. CM educated patient on the CM role and verbal consent given by patient to complete assessment. Patient lives at home with her two young grand-daughters where she is independent with her care. At discharge patient plans to return home and feels this is a safe discharge. CM discussed availability of home health, rehab services, and medical equipment. Patient has Home 02 and HH with unknown providers. CM will f/u with patient @ later date to see if she is able to give providers. Patient denied known discharge needs at this time. CM will continue to follow and will assist as needed with dc plans/needs. Marble Polisher: Aleisha Monroe DCPIA - Discharge Planning Initial Assessment Updated by [id number]: Sandor Carrasquillo on 05/28/19 9:36 am * How many steps to enter\\exit or inside your home? * PCP uncertain ? * Pharmacy [facility] * Preadmission Environment Home with Family * ADLs Independent * Other Equipment HOME 02, WALKER, SCOOTER, BSC, SC * List name and contact numbers for known caregivers / representatives who currently or will assist patient after discharge: CHEPE SUN - DAUGHTER- [phone] HOUSTON SALGADO, DTR - [phone] * Verbal permission to speak to the caregivers and representatives has been obtained from the patient. Yes * Community resources currently utilized Home Health * Please name any agencies selected above. [facility] * Additional services required to return to the preadmission environment? No * Can the patient safely return to the preadmission environment? Yes * Has this patient been hospitalized within the prior 30 days at any hospital? No External Providers External Provider: OTHER-OTHER Next Contact Date: 06/10/2019 Service Request Date: Service Type: Resolution: Reviewer: Comments: Coverage Notice Reviewer: [id number] Carrasquillo Notice Issued Date-Time: 06/09/2019 9:55 Notice Type: Patient Choice Letter Notice Delivered To: Patient Relationship to Patient: Mobile Designer Name: Delivery Method: HAND - Hand Delivered Marry Days: Prior Verbal Notification: Recipient Understood Notice: Yes Recipient Signature: Yes Med Rec Note Co-signed by Attending: Coverage Notice Comment: [facility] OR ANY ACCEPTING LONG TERM FACLITY Reviewer: NAYLA Carrasquillo Notice Issued Date-Time: 05/31/2019 14:50 Notice Type: Patient Choice Letter Notice Delivered To: Patient Relationship to Patient: Mobile Designer Name: Delivery Method: HAND - Hand Delivered Marry Days: Prior Verbal Notification: Recipient Understood Notice: Yes Recipient Signature: Yes Med Rec Note Co-signed by Attending: Coverage Notice [facility] Reviewer: [id number] Carrasquillo Notice Issued Date-Time: 05/25/2019 14:05 Notice Type: Patient Choice Letter Notice Delivered To: Patient Relationship to Patient: Mobile Designer Name: Delivery Method: HAND - Hand Delivered Marry Days: Prior Verbal Notification: Recipient Understood Notice: Yes Recipient Signature: Yes Med Rec Note Co-signed by Attending: Coverage Notice Comment: [facility]- [facility]ISIT[facility]URSES VLADIMIR MORGANA ([facility]) Last DP export: 06/10/19 3:12 Patient Name: TROY HAYWOOD Page [phone] at 1620 All edits/amendments must be made on the electronic document DICTATION DATE: 06/10/191619 OFFICE HELPER: MISHEL 06/10/191619 RPT#: [id number] DC DATE: STATUS: ADM IN [facility] [address] [place] [address] END OF REPORT
--- NOTE | 2019-06-10 16:27 | MORECARE ---
CASE MANAGEMENT DISCHARGE SUMMARY PATIENT: TROY HAYWOOD UNIT: [id number] ADM DATE: 05/14/19 AGE: 64 : 57 SEX: F ROOM/BED: D.2140 AUTHOR: DAYDAYDOC PHYSICIAN: REFERRING PHYSICIAN: FABIO PINEDA MD DATE OF SERVICE: 06/10/19 Discharge Plan Patient Name: TROY HAYWOOD Facility: [facility]:[place] : 1955 Planned Disposition: Nursing Facility YUN Cert Anticipated Discharge Date: 06/11/19 Discharge Date: Expected LOS: 28 Initial Reviewer: [id number] Initial Review Date: 05/19/2019 Generated: 06/10/19 5:26 pm Comments DCP- Discharge Planning Updated by [id number]: Sandor Carrasquillo on 06/09/19 3:[address] Patient Name: TROY HAYWOOD Encounter No: [id number] : 1955 Primary Insurance: [place] Anticipated DC Date: 06-10-2019 Planned Disposition: Nursing Facility YUN Cert External Planned Provider: FIRST ACCEPTING FACILITY DCP follow-up note: CM SPOKE TO PT AND DAUGHTER, CHEPE, THEY WILL LET CM SEEK HALF-WAY PLACEMENT FOR THEM TO CONSIDER BUT STILL DO NOT WANT DIESEL POWERPLANT MECHANIC CARE IF THEY CAN OBTAIN REHAB THROUGH THE [facility]. DAUGHTER ADVISED SHE HAS CONFIRMED RECEIPT OF THE APPLICATION FAXED TO THE [facility] AND IS IN PROCESS OF REVIEW. DAUGHTER ASKED CM TO CHECK INTO REHAB'S THAT MAY HAVE [facility] AFFILIATION. CM CALLED [facility], , REQUESTED ASSISTANCE IN LONGTERM CARE PLACEMENT WITH INTENT TO RETURN HOME. CHAR STATES THAT SHE MAY HAVE HOME'S WILL ACCEPT BARIATRIC PATIENT AND WILL ATTEMPT PLACEMENT. CHAR WILL MEET WITH PT LATER TODAY. CM FAXED REFERRAL TO [facility] AT [phone]. CM SPOKE TO [facility], TROY INFORMED CM THAT SHE HAS NO HOMES IN HER GROUP THAT MAY ASSIST WITH PLACEMENT. CM CALLED [facility], WAS ADVISED BY [facility] THAT THEY WILL NOT CONSIDER FOR TREY CARE, THEY ARE NOT AFFILIATED WITH [facility]. CM CALLED [facility], , SPOKE TO CHELO WHO INFORMED CM THAT THEY ARE NOT AFFILIATED WITH [facility] BUT WILL CONSIDER PT FOR TREY REHAB. CM FAXED REFERRAL TO [facility] AT [phone]. CM CALLED [facility] IN [place], , SPOKE TO DHEERAJ WHO REPORTS THEY HAVE NO OPEN REHAB BEDS AND HAVE NO PROJECTED DISCHARGES SOON. THEY DO NOT HAVE WEIGHT LIMITS. DHEERAJ DID NOT WANT REFERRAL FAXED, SHE WILL REPORT TO BREN WHO WILL CHECK WITH THE [facility] REGARDING APPLICATION STATUS AND CALL CM TOMORROW, 06-10-19. CM NOTIFIED PT IN ROOM OF PROGRESS. PT STATES SHE MAY BE ABLE TO TRANSFER SELF AND GO HOME BEFORE CM FINDS REHAB FOR HER. - CM WAITING ADMISSION DETERMINATION FROM [facility] FOR LONGTERM CARE PLACEMENT IN ONE OF HER AFFILIATED NURSING HOMES. - CM WAITING ADMISSION DETERMINATION FROM [facility] FOR [facility]AB BED. - CM WAITING RETURN CALL FROM [facility] IN [place] REGARDING TREY REHAB. Sandor Carrasquillo, CASE MANAGEMENT DCP- Discharge Planning Updated by [id number]: Sandor Carrasquillo on 06/04/19 4:[address] Patient Name: TROY HAYWOOD Encounter No: [id number] : 1955 Primary Insurance: [place] Anticipated DC Date: 06-02-2019 Planned Disposition: Nursing Facility YUN Cert External Planned Provider: TO BE DETERMINED DCP follow-up note: CM SPOKE TO PT AND DAUGHTER CHEPE, IN ROOM. PT IS AND FOR PAST 10 YEARS, BUT NOT LEGALLY. THEY CANNOT QUALIFY FOR MEDICAID FOR LONGTERM CARE DUE TO NOT HAVING SPOUSE FINANICAL INFORMATION. PT AND DAUGHTER BOTH STATE THAT THEY DO NOT WANT TO PUT PT INTO LONGTERM HALF-WAY CARE WHERE SHE WILL JUST LAY IN THE BED. THEY DO NOT WANT FURTHER HALF-WAY REFERRALS FAXED OUT. CM DISCUSSED THAT PT IS STABLE FOR DISCHARGE MEDICALLY. PT'S DAUGHTER REPORTS PT IS NOT HAVING BOWEL MOVEMENTS AND THAT THE FECES COMING OUT IS COMING AROUND AN IMPACTION AND NO ONE IS ADDRESSING THIS. CM NOTIFIED TOBY THOMAS WHO PROVIDED ORDERS FOR MEDICATION TO TREAT CONDITION. BEDSIDE NURSE NOTIFIED. PT'S DAUGHTER PROVIDED CM WITH 77 PAGES AND ASKED CM TO FAX TO [facility] FOR FINANCIAL ASSISTANCE REGARDING REHAB SERVICES FOR PT. CM FAXED TO [facility] FINANCIAL ASSISTANCE [facility]GRAM AT [phone]. PT'S DAUGHTER ADVISED THAT IF APPROVED, PT WILL HAVE TO GO [facility]. PT WAS DECLINED LONGTERM CARE PLACEMENT AT [facility]; PT AND FAMILY DECLINE TO HAVE FURTHER REFERRALS SENT OUT. FAMILY IS TRYING TO SECURE FINANCIAL ASSISTANCE FOR REHAB SERVICES THROUGH [facility]. CM TO CONTINUE TO FOLLOW AND ASSIST. Sandor Carrasquillo, CASE MANAGEMENT DCP- Discharge Planning Updated by [id number]: Sandor Carrasquillo on 06/04/19 11:[address] Patient Name: TROY HAYWOOD Encounter No: [id number] : 1955 Primary Insurance: MEDICAID [facility] DC Date: 06-02-2019 Planned Disposition: Nursing Facility YUN [facility] External Planned Provider: WAITING FAMILY DECISION DCP follow-up note: CM RECEIVED CALL FROM ANNIE OF [facility] WHO ADVISED CM THAT PT HAS BEEN FIANCIALLY DENIED FOR PLACEMENT. CM SPOKE TO PT IN ROOM WHO ADVISED THAT SHE UNDERSTOOD THEY WERE JUST GOING TO LEAVE HER LAYING IN BED FOR A MONTH AND NOT GIVE HER ANY REHAB SERVICES. CM EXPLAINED THAT MEDICAID DOES NOT PAY FOR REHAB SERVICES, ONLY LONGTERM CARE AND PT WOULD RECEIVE WHAT THEY CALL "RESTORATIVE CARE" FROM STAFF AT ANY HALF-WAY, NOT THERAPY SERVICES. PT STATES SHE IS NOW ABLE TO STAND UP WITH THERAPY HERE. CM EXPLAINED THAT PT IS GETTING 8 TO 16 MINUTES OF THERAPY PER DAY AND THAT ALTHOUGH CM WAS HAPPY WITH PROGRESSION, PT IS MEDICALLY STABLE TO LEAVE THE HOSPITAL AND THAT SHE WOULD RECEIVE MORE THERAPY AT HOME WITH HOME HEALTH THAN IN THIS ACUTE HOSPITAL SETTING. PT STATES SHE IS NOT SURE WHAT HAPPENED, THAT CHEPE IS TAKING CARE OF THIS FOR HER AND THAT CHEPE WILL BE TO THE HOSPITAL IN A LITTLE WHILE TO SPEAK TO CM; PT BELIVES THAT CHEPE IS AGAIN WORKING ON TRYING TO GET TREY REHAB CARE THROUGH THE [facility] PROGRAM. PT HAS BEEN FINANCIALLY DECLINED FOR LONGTERM CARE PLACEMENT BY [facility]. PT DEFERRING PLANNING TO HER DAUGHTER, CHEPE. CM WAITING FAMILY TO ARRIVE TO DISCUSS FURTHER DISCHARGE PLANNING. Sandor Carrasquillo, CASE MANAGEMENT DCP- Discharge Planning Updated by [id number]: Sandor Carrasquillo on 06/03/19 7:[address] Patient Name: TROY HAYWOOD Encounter No: [id number] : 1955 Primary Insurance: [place] Anticipated DC Date: 06-02-2019 Planned Disposition: Nursing Facility YUN Cert External Planned Provider: [facility] MEDICAID BED DISCHARGE PLANNING NOTE: CM FAXED REFERRAL UPDATE TO [facility] AT [phone]. CM WAITING ADMISSION DETERMINATION FROM [facility] FOR DIESEL POWERPLANT MECHANIC CARE. WAITING FAMILY TO PROVIDE FINANCIAL INFORMATION FOR LONGTERM CARE MEDICAID APPLICATION TO FACILITY. ROSANNA Montaño DCP- Discharge Planning Updated by [id number]: Sandor Carrasquillo on 06/02/19 3:[address] Patient Name: TROY HAYWOOD Encounter No: [id number] : 1955 Primary Insurance: [place] Anticipated DC Date: 06-02-2019 Planned Disposition: Nursing Facility YUN Cert External Planned Provider: [facility] MEDICAID BED DCP follow-up note: CM FAXED REFERRAL UPDATE TO [facility] AT [phone]. CM WAITING ADMISSION DETERMINATION FROM [facility] FOR DIESEL POWERPLANT MECHANIC CARE. Sandor Carrasquillo CASE MANAGEMENT Appended by Sandor Carrasquillo on 06/02/2019 16:50 TRIM MASTER OPERATOR: CM RECEIVED CALL FROM LUIS OF [facility], , THEY RECEIVED THE UPDATE BY FAX AND WILL CONTACT FAMILY REGARDING FINANCIALS. LUIS REPORTS THEY ARE STILL WAITING ON NURSING TO ACCEPT FOR DIESEL POWERPLANT MECHANIC CARE AND WILL ALSO NEED FINANCIAL CLEARANCE TO ENTER THE FACILITY. CM WAITING ADMISSION DETERMINATION FROM [facility] FOR DIESEL POWERPLANT MECHANIC CARE. [facility] CONTACTING FAMILY TO ASSIST WITH FINANCIAL INFORMATION FOR DIESEL POWERPLANT MECHANIC CARE MEDICAID APPLICATION. ROSANNA Montaño DCP- Discharge Planning Updated by [id number]: Sandor Carrasquillo on 06/01/19 4:[address] Patient Name: TROY HAYWOOD Encounter No: [id number] : 1955 Primary Insurance: [place] Anticipated DC Date: 06-02-2019 Planned Disposition: Nursing Facility YUN Cert External Planned Provider: [facility], DIESEL POWERPLANT MECHANIC CARE MEDICAID BED DCP follow-up note: CM MET WITH PT AND DAUGHTER HOUSTON, WHO HAS MADE IT FROM [place]. UPDATE PROVIDED. CM CALLED [facility], DALE INFORMED CM THAT REFERRAL FROM CM AND [facility] WAS RECEIVED, STAFF IN MEETING TODAY AND THEY WILL FINISH ADMISSION REVIEW TOMORROW, 06-02-19. CM NOTIFIED PT AND DAUGHTER IN ROOM. CM WAITING ADMISSION DETERMINATION FROM [facility] FOR LONGTERM CARE. Sandor Carrasquillo CASE MANAGEMENT DCP- Discharge Planning Updated by [id number]: Sandor Carrasquillo on 05/31/19 3:[address] Patient Name: TROY HAYWOOD Encounter No: [id number] : 1955 Primary Insurance: [place] Anticipated DC Date: 06-01-2019 Planned Disposition: Nursing Facility YUN [facility] External Planned Provider: [facility], DIESEL POWERPLANT MECHANIC CARE MEDICAID BED DCP follow-up note: AFTER SEVERAL VISITS WITH PT IN ROOM, PHONE CALLS WITH DAUGHTERS, [facility] AND [facility], PT DECIDED TO CONSENT TO 30 DAYS OF DIESEL POWERPLANT MECHANIC CARE AT [facility] AFTER PT'S DAUGTHERS, WITH AIDE [facility] WHO WILL CONSIDER PT FOR CARE. PT SIGNED CHOICE. CM FAXED REFERRAL INFORMATION TO [facility] AT [phone]. CM WAITING ADMISSION DETERMINATION FROM [facility] FOR LONG[facility]M CARE. Sandor Carrasquillo CASE DEVAUGHN DCP- Discharge Planning Updated by [id number]: Sandor Carrasquillo on 05/28/19 3:[address] Patient Name: TROY HAYWOOD Encounter No: [id number] : 1955 Primary Insurance: [place] Anticipated DC Date: 06-02-2019 Planned Disposition: Home with [facility] External Planned Provider: [employer] DCP follow-up note: CM RECEIVED CALL FROM PT'S DAUGHTER, CHEPE, WHO VERIFIED THAT SHE WILL COME NEXT WEEK TO STAY WITH PT FOR TWO OR THREE WEEKS TO CARE FOR PT AT HOME. CHEPE WILL DISCUSS WITH HER MOTHER THAT SHE WILL HAVE TO BE ABLE TO STAND AND TRANSFER FOR CHEPE TO CARE FOR HER. CM REVIEWED THERAPY NOTES TO PRESENT. 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 PT HAS BEDSIDE COMMODE AND WHEELCHAIR AT HOME. CHEPE REPORTS NEED OF [facility] RES[facility]TION. CHEPE WILL DISCUSS WITH PT AND TRY TO MOTIVATE HER TO MEET THERAPY GOALS PRIOR TO ARRIVAL ON NEXT FRIDAY OR FRIDAY. PT'S DAUGHTER PLANS TO TAKE PT HOME NEXT FRIDAY OR FRIDAY, THEY WILL NEED [facility] RES[facility], DENIES FURTHER NEEDS. CM TO FOLLOW AND ASSIST NEEDED. Sandor Carrasquillo, CASE MANAGEMENT DCP- Discharge Planning Updated by [id number]: Sandor Carrasquillo on 05/28/19 2:[address] Patient Name: TROY HAYWOOD Encounter No: [id number] : 1955 Primary Insurance: [place] Anticipated DC Date: Planned Disposition: Nursing Facility YUN Cert External Planned Provider: TO BE DETERMINED DCP follow-up note: CM SPOKE TO [facility], SHE INFORMED CM THAT UPDATES HAVE BEEN RECEIVED, PT IS NOT MAKING ENOUGH PROGRESS WITH THERAPY THAT THEY DO NOT BELIEVE THAT PT WILL BE ABLE TO ACHIEVE THERAPY GOALS IN THE REMAINING 10 DAYS OF ACUTE DAYS THAT PT HAS REMAINING. CM NOTIFIED PT AND PROVIDED PT WITH NURSING FACILITY LISTING OF ALL AVAILABLE FACILITIES WITHIN [address] OF [place]. PT WILL SPEAK TO HER DAUGHTER AND NOTIFY CM OF HER CHOICES. CM CALLED [facility], , TWICE; AUTOMATED MESSAGE INFORMED CM THAT THE NUMBER WAS RESTRICTED OR CURRENTLY UNAVAILABLE. CM WAITING PT AND FAMILY TO PROVIDE NURSING FACILITY CHOICES FOR DIESEL POWERPLANT MECHANIC CARE. Sandor Carrasquillo, CASE MANAGEMENT Appended by Sandor Carrasquillo on 05/28/2019 12:07 CDT: CM SPOKE TO PT IN ROOM, NOTIFIED PT THAT CM TRIED AND COULD NOT REACH DAUGHTER HOUSTON VIA PHONE. PT REPORTS SHE SPOKE TO [facility]STON WHO TOLD HER THAT [facility] WILL NOT TAKE HER DUE TO WEIGHT; PT'S DAUGHTER TOLD PT THAT [facility] PROBAB[facility] WILL NOT TAKE HER. PT REPORTS THERE IS ONE IN [place] THAT MIGHT CONSIDER HER. CM OFFERED CHOICE FORM FOR SIGNATURE SO THAT CM COULD SEND REFERRALS AND BEGIN CALLING TO FIND PLACEMENT. PT REFUSED AND STATES SHE HAS A DAUGHTER, CHEPE, WHO IS A REGISTERED NURSE, THAT MAY BE COMING TO TAKE CARE OF PT AT HOME. PT'S DAUGHTER HOUSTON IS CALLING DAUGHTER CHEPE TO DISCUSS THE OPTION. PT STATES SHE WILL LET CM KNOW THE OUTCOME AND IF SHE WANTS CM TO EXPLORE HALF-WAY CARE FOR HER. CM WAITING PT AND FAMILY TO PROVIDE NURSING FACILITY CHOICES AND FOR PT TO SIGN CONSENT FOR HALF-WAY PLACEMENT. PT IS NOW HOPEFUL THAT HER DAUGHTER WHO IS A REGISTERED NURSE WILL COME AND STAY WITH PT AND TAKE CARE OF HER AT HOME. SANDOR CARRASQUILLO, CASE MANAGEMENT Appended by Sandor Carrasquillo on 05/28/2019 14:27 CDT: CM RECEIVED MESSAGE THAT PT WANTS TO SEE CM. CM MET WITH PT IN ROOM WHO INFORMED CM THAT SHE HIS NOT GOING TO A HALF-WAY, THAT HER DAUGHTER, CHEPE, WHO IS A NURSE, WILL BE HERE NEXT FRIDAY TO TAKE HER HOME AND WILL TAKE CARE OF PT AT HOME. PT ASKED FOR [facility]. CM DISCUSSED POSSIBLE NEED OF DEBORAH LIFT AND ASKED ABOUT ADDITIONAL EQUIPMENT. PT THINKS BY NEXT WEEK, SHE WILL BE ABLE TO TRANSFER WITHOUT AIDE OF LIFT DEVICE. CM NOTIFIED DR. FREEDMAN WHO INFORMED CM THAT HE WILL ORDER BLOOD GAS ON FRIDAY TO DETERMINE RESPIRATORY DISCHARGE NEEDS AT THAT TIME. PT HAS SIGNED RIGHT OF CHOICE FOR [facility] ALREADY. PT REPORTS HER DAUGHTER, WHO IS A REGISTERED NURSE, WILL BE HERE FRIDAY OF NEXT WEEK TO TAKE CARE OF PT AT HOME. PT PLANS TO DISCHARGE HOME WITH FAMILY AND [facility]. CM TO FOLLOW AND ASSIST NEEDED. ROSANNA MONTAÑO DCP- Discharge Planning Updated by [id number]: Sandor Carrasquillo on 05/28/19 7:[address] Patient Name: TROY HAYWOOD Encounter No: [id number] : 1955 Primary Insurance: [place] Anticipated DC Date: Planned Disposition: Inpatient Rehab External Planned Provider: [facility] DCP follow-up note: CM FAXED REFERRAL UPDATE TO [facility] AT [phone]. CM WAITING ADMISSION DETERMINATION FROM [facility] IN [place]. ROSANNA Montaño DCP- Discharge Planning Updated by [id number]: Sandor Carrasquillo on 05/27/19 2:[address] Patient Name: TROY HAYWOOD Encounter No: [id number] : 1955 Primary Insurance: [place] Anticipated DC Date: Planned Disposition: Inpatient Rehab External Planned Provider: [facility] DCP follow-up note: CM FAXED REFERRAL UPDATE TO [facility] AT [phone]. CM WAITING ADMISSION DETERMINATION FROM [facility] IN [place]. Sandor Carrasquillo, CASE MANAGEMENT Appended by Sandor Carrasquillo on 05/27/2019 14:41 CDT: CM CALLED [facility] OF [facility], , LEFT MESSAGE ASKING FOR UPDATE ON REFERRAL AND TO KNOW IF THEY ARE STILL CONSIDERING PT FOR REHAB. CM WAITING ADMISSION DETERMINATION FROM [facility] IN [place]. Sandor Carrasquillo, CASE MANAGEMENT DCP- Discharge Planning Updated by [id number]: Jesica Osiel on 05/26/19 4:[address] Patient requested Trapeze bar to allow her to sit up in hospital bed. CM spoke Dr. Lawson and obtained approval for Trapeze bar. CM notified Radha in materials management of request for Trapeze bar. CM completed and gave Rdaha the order form for the Trapeze bar. Trapeze bar will be delivered. CM notified patient's CM, Christiano Carrasquillo, on status of Trapeze bar. DCP- Discharge Planning Updated by [id number]: Sandor Carrasquillo on 05/26/19 3:[address] Patient Name: TROY HAYWOOD Encounter No: [id number] : 1955 Primary Insurance: MEDICAID [facility] DC Date: Planned Disposition: Inpatient Rehab External Planned Provider: [facility] DCP follow-up note: CM SPOKE TO PT'S DAUGHTER VIA PHONE, HOUSTON SALGADO, . CM OBTAINED PERMISSION FROM PT TO DISCUSS CARE, TREATMENT AND DISCHARGE PLANNING WITH HOUSTON. HOUSTON INFORMED CM THAT PT WAS IN REHAB AT [facility] LAST YEAR AND THEY WANT REFERRED TO [facility] AGAIN. CHRISTOPHER DISCUSSED PT'S VERY LOW LEVEL OF PHYSICAL CONDITIONING. PT'S DAUGHTER FEELS THAT PT CAN PARTICIPATE WITH THERAPY WITH GOAL TO RETURN HOME PREVIOUS WITH ABILITY TO TRANSFER TO ELECTRIC SCOOTER AND HOME HEALTH FOR CONTINUED HOME SERVICES. HOUSTON VERIFIED THAT PT HAS NO ADULTS ABLE TO LIVE WITH AND ASSIST PT AT HOME AT THIS TIME. HOUSTON ASKED ABOUT [facility] RE[facility] SERVICES THAT MAY TAKE PT AT NO COSTS DUE TO INCOME. CM INFORMED HOUSTON THAT CM WAS NOT FAMILIAR WITH ANY OF THESE PROGRAMS. HOUSTON WOULD LIKE TO HAVE PT EVALUATED FOR REHAB AT [facility] PRIOR TO ANY CONSIDERATION OF HALF-WAY PLACEMENT PT WILL NOT GET THERAPY THERE. CM SPOKE TO PT WHO IS IN AGREEMENT WITH PLAN. CM CALLED [facility] OF [facility], , NOTIFIED OF REHAB REQUEST; PT HAS ONLY 24 ACUTE DAYS THAT STARTED IN JANUARY, IT DEPENDS ON HOW MANY HAVE BEEN ALREADY USED, PT'S CONDITION AND NEEDS THAT WOULD HAVE TO BE MET IN THE REMAINING DAYS THAT PT HAS TO USE FOR REHAB . CM FAXED REFERRALINFORMATION TO [facility] WITH CURRENT MAR AT [phone]. CM WAITING ADMISSION DETERMINATION FROM [facility] IN [place]. Sandor Carrasquillo, CASE MANAGEMENT Appended by Sandor Carrasquillo on 05/26/2019 15:24 CDT: CM MET WITH PT, GRANDDAUGHTER, DAUGHTER HOUSTON VIA PHONE WITH CM DIETETIC INTERN, UNIT NURSE SPAR CAP BEVELER, REPIRATORY THERAPIST AND DIETETIC INTERN OF THERAPY SERVICES REGARDING DISCHARGE PLANNING. CONCERNS OF PT'S PLAN TO GO HOME IN CURRENT CONDITION DISCUSSED. PT AND DAUGHTER HAVE ALREADY ASKED FOR REFERRAL TO [facility], CM HAS SENT IT AND WAITING DETERMINATION. PLAN "B" WAS AGREED TO BE NURSING FACILITY IF NOT ACCEPTED TO [facility] AND THAT CM WOULD ATTEMPT TO FIND ONE THAT MAY DONATE REHAB SERVICES. PT'S DAUGHTER IS RESEARCHING ZEKE FUNDING FROM [facility] FOR REHAB SERVICES. CM WAITING ADMISSION DETERMINATION FROM [facility] IN [place]. Sandor Carrasquillo, CASE MANAGEMENT DCP- Discharge Planning Updated by [id number]: Sandor Carrasquillo on 05/25/19 2:[address] Patient Name: TROY HAYWOOD Encounter No: [id number] : 1955 Primary Insurance: MEDICAID [facility] Date: Planned Disposition: Home HEALTH External Planned Provider: [facility] [address], VISITING NURSES [facility] [place] follow-up note: CM MET WITH PT IN ROOM TO DISCUSS DISCHARGE NEEDS AND PLANNING. CM DISCUSSED AVAILABILITY OF HOME HEALTH, REHAB SERVICES AND MEDICAL EQUIPMENT. PT REFUSES DETENTION FACILITY PLACEMENT. PT STATES PLAN TO RETURN HOME. 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 PT WAS ABLE TO AMBULATE SMALL DISTANCES AND TRANSFER SELF FROM BED TO ELECTRIC WHEELCHAIR AT HOME. PT THINKS SHE IS GOING TO BE ABLE TO TRANSFER SELF TO GO BACK HOME. PT WANTS HOME HEALTH RESUMED TO GO HOME. CM EXPRESSED CONCERN OF PT'S CURRENT LEVEL OF FUNCTIONING AND RETURNING HOME. PT DENIES HAVING FRIENDS OR FAMILY TO ASSIST WITH HER CARE AT HOME BUT IS NOT GOING TO A HALF-WAY. PT THINKS SHE WILL NEED AN AMBULANCE FOR TRANSPORT HOME HER ELECTRIC WHEELCHAIR IS THERE. CM EXPLAINED TO PT THAT SHE WILL NEED TO DEMONSTRATE WITH THERAPY THE ABILITY TO TRANSFER AND SIT IN CHAIR FOR DISCHARGE. PT STATED UNDRESTANDING. CHOICE FOR [facility] [address] VISITING NURSES HOME HEALTH SIGNED. 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 PT REFUSED NURSING FACILITY PLACEMENT. PT WILL NEED TO DEMONSTRATE ABILITY TO TRANSFER AND SIT IN CHAIR FOR DISCHARGE SHE HAS ELECTRIC WHEELCHAIR AT HOME. CM TO ARRANGE HOME HEALTH RESUMPTION WITH [facility] VISITING NURSES AGENCY IN [place] FOR DISCHARGE HOME. CM TO CONTINUE TO FOLLOW AND ASSIST NEEDED. Sandor Carrasquillo, CASE MANAGEMENT DCP- Discharge Planning Updated by [id number]: Aleisha Monroe on 05/19/19 7:[address] Patient Name: TROY HAYWOOD Admission Status: ER Accout number: [id number] Admission Date: 05-14-2019 : 1955 Admission Diagnosis: Attending: FABIO PINEDA Current LOS: 5 Anticipated DC Date: Planned Disposition: Home or Self Care Primary Insurance: [place] Discharge Planning Comments: CM met with patient and daughter to complete initial dc planning assessment. Patient recently extubated earlier today. CM educated patient on the CM role and verbal consent given by patient to complete assessment. Patient lives at home with her two young grand-daughters where she is independent with her care. At discharge patient plans to return home and feels this is a safe discharge. CM discussed availability of home health, rehab services, and medical equipment. Patient has Home 02 and HH with unknown providers. CM will f/u with patient @ later date to see if she is able to give providers. Patient denied known discharge needs at this time. CM will continue to follow and will assist as needed with dc plans/needs. Kettle Loader: Aleisha Monroe DCPIA - Discharge Planning Initial Assessment Updated by [id number]: Sandor Carrasquillo on 05/28/19 9:36 am * How many steps to enter\\exit or inside your home? * PCP uncertain ? * [facility] * Preadmission Environment Home with Family * ADLs Independent * Other Equipment HOME 02, WALKER, SCOOTER, BSC, SC * List name and contact numbers for known caregivers / representatives who currently or will assist patient after discharge: CHEPE SUN - DAUGHTER- [phone] HOUSTON SALGADO, DTR - [phone] * Verbal permission to speak to the caregivers and representatives has been obtained from the patient. Yes * Community resources currently utilized Home Health * Please name any agencies selected above. [facility] * Additional services required to return to the preadmission environment? No * Can the patient safely return to the preadmission environment? Yes * Has this patient been hospitalized within the prior 30 days at any hospital? No External Providers External Provider: [facility] Next Contact Date: 06/10/2019 Service Request Date: Service Type: Resolution: Reviewer: Comments: Coverage Notice Reviewer: [id number] Carrasquillo Notice Issued Date-Time: 05/25/2019 14:05 Notice Type: Patient Choice Letter Notice Delivered To: Patient Relationship to Patient: Cans Vacuum Tester Name: Delivery Method: HAND - Hand Delivered Marry Days: Prior Verbal Notification: Recipient Understood Notice: Yes Recipient Signature: Yes Med Rec Note Co-signed by Attending: Coverage Notice Comment: [facility]- VISITING NURSES [facility] Reviewer: NAYLA Carrasquillo Notice Issued Date-Time: 05/31/2019 14:50 Notice Type: Patient Choice Letter Notice Delivered To: Patient Relationship to Patient: Cans Vacuum Tester Name: Delivery Method: HAND - Hand Delivered Marry Days: Prior Verbal Notification: Recipient Understood Notice: Yes Recipient Signature: Yes Med Rec Note Co-signed by Attending: Coverage Notice Comment: [facility] Reviewer: [id number] Carrasquillo Notice Issued Date-Time: 06/09/2019 9:55 Notice Type: Patient Choice Letter Notice Delivered To: Patient Relationship to Patient: Cans Vacuum Tester Name: Delivery Method: HAND - Hand Delivered Marry Days: Prior Verbal Notification: Recipient Understood Notice: Yes Recipient Signature: Yes Med Rec Note Co-signed by Attending: Coverage Notice Comment: [place] OR ANY ACCEPTING DETENTION FACLITY Last DP export: 06/10/19 3:20 Patient Name: JOLIE HAYWOODKI Page [phone] at 1627 All edits/amendments must be made on the electronic document DICTATION DATE: 06/10/191625 TRACK REPAIRER: MISHEL 06/10/191625 RPT#: [id number] DC DATE: STATUS: ADM IN [facility] [address] [place] [address] END OF REPORT
--- NOTE | 2019-06-10 16:41 | MORECARE ---
CASE MANAGEMENT DISCHARGE SUMMARY PATIENT: TROY HAYWOOD UNIT: [id number] ADM DATE: 05/14/19 AGE: 64 : 57 SEX: F ROOM/BED: D.2140 AUTHOR: DAYDAY,DOC PHYSICIAN: REFERRING PHYSICIAN: FABIO PINEDA MD DATE OF SERVICE: 06/10/19 Discharge Plan Patient Name: TROY HAYWOOD Facility: [facility]:[place] : 1955 Planned Disposition: Nursing Facility YUN Cert Anticipated Discharge Date: 06/11/19 Discharge Date: Expected LOS: 28 Initial Reviewer: [id number] Initial Review Date: 05/19/2019 Generated: 06/10/19 5:40 pm Comments DCP- Discharge Planning Updated by [id number]: Sandor Butt on 06/10/19 3:[address] Patient Name: TROY HAYWOOD Encounter No: [id number] : 1955 Primary Insurance: MEDICAID [place] Anticipated DC Date: 06-11-2019 Planned Disposition: Nursing Facility YUN Cert External Planned Provider: FIRST ACCEPTING FACILITY DCP follow-up note: - CM RECEIVED CALL FROM [facility], THEY HAVE NOT AVAILABILITY FOR TREY REHAB BED. CM RECEIVED CALL FROM MITCH OF [facility] IN [facility], THEY HAVE NOT RECEIVED TREY APPLICATION AND HAVE NO CURRENT BEDS BUT WOULD CONSIDER PT. CM RETURNED CALL TO MITCH AT [facility], , INFORMED THAT TREY APPLICATION HAD BEEN FAXED TO [facility] IN [facility], TELEPHONE CONTACT [phone]. HETAL ASKED FOR REFERRAL TO BE SENT AND HE WILL SCREEN FOR ADMISSION. CM FAXED REFERRAL TO [facility] AT [phone]. CM NOTIFIED PT AND DAUGHTER OF PROGRESS IN ROOM. PT AND DAUGHTER ASKED FOR CM TO SEND REFERRAL TO [facility] IN [place]. CHOICE SIGNED. CM FAXED REFERRAL TO [facility] VIA [facility] AT [phone]. - CM WAITING ADMISSION DETERMINATION FROM [facility] FOR FLOW MANAGER CARE PLACEMENT IN ONE OF HER AFFILIATED NURSING HOMES. - CM WAITING RETURN CALL FROM [facility] IN [place] REGARDING TREY REHAB. - CM WAITING ADMISSION DETERMINATION FROM [facility]. Sandor Butt, CASE MANAGEMENT DCP- Discharge Planning Updated by [id number]: Sandor Butt on 06/09/19 3:[address] Patient Name: TROY HAYWOOD Encounter No: [id number] : 1955 Primary Insurance: MEDICAID [place] Anticipated DC Date: 06-10-2019 Planned Disposition: Nursing Facility YUN Cert External Planned Provider: FIRST ACCEPTING FACILITY DCP follow-up note: CM SPOKE TO PT AND DAUGHTER, CHEPE, THEY WILL LET CM SEEK LONG TERM PLACEMENT FOR THEM TO CONSIDER BUT STILL DO NOT WANT FLOW MANAGER CARE IF THEY CAN OBTAIN REHAB THROUGH [facility]. DAUGHTER ADVISED SHE HAS CONFIRMED RECEIPT OF THE APPLICATION FAXED TO [facility] AND IS IN PROCESS OF REVIEW. DAUGHTER ASKED CM TO CHECK INTO REHAB'S THAT MAY HAVE [facility]ILI[facility]. CM CALLED [facility], , REQUESTED ASSISTANCE IN FLOW MANAGER CARE PLACEMENT WITH INTENT TO RETURN HOME. CHAR STATES THAT SHE MAY HAVE HOME'S WILL ACCEPT BARIATRIC PATIENT AND WILL ATTEMPT PLACEMENT. CHAR WILL MEET WITH PT LATER TODAY. CM FAXED REFERRAL TO [facility] AT [phone]. CM SPOKE TO TROY MIMS OF [facility], TROY INFORMED CM THAT SHE HAS NO HOMES IN HER GROUP THAT MAY ASSIST WITH PLACEMENT. CM CALLED [facility] [place], WAS ADVISED BY [facility] THAT THEY WILL NOT CONSIDER FOR TREY CARE, THEY ARE NOT AFFILIATED WITH [facility]. CM CALLED [facility], , SPOKE TO CHLEO WHO INFORMED CM THAT THEY ARE NOT AFFILIATED WITH [facility] BUT WILL CONSIDER PT FOR TREY REHAB. CM FAXED REFERRAL TO [facility] AT [phone]. CM CALLED [facility] IN [place], , SPOKE TO DHEERAJ WHO REPORTS THEY HAVE NO OPEN REHAB BEDS AND HAVE NO PROJECTED DISCHARGES SOON. THEY DO NOT HAVE WEIGHT LIMITS. DHEERAJ DID NOT WANT REFERRAL FAXED, SHE WILL REPORT TO BREN WHO WILL CHECK WITH THE [facility] REGARDING APPLICATION STATUS AND CALL CM TOMORROW, 06-10-19. CM NOTIFIED PT IN ROOM OF PROGRESS. PT STATES SHE MAY BE ABLE TO TRANSFER SELF AND GO HOME BEFORE CM FINDS REHAB FOR HER. - CM WAITING ADMISSION DETERMINATION FROM [facility] FOR FLOW MANAGER CARE PLACEMENT IN ONE OF HER AFFILIATED NURSING HOMES. - CM WAITING ADMISSION DETERMINATION FROM [facility] FOR TREY REHAB BED. - CM WAITING RETURN CALL FROM [facility] IN [place] REGARDING TREY REHAB. ROSANNA Montaño MANAGEMENT DCP- Discharge Planning Updated by [id number]: Sandor Butt on 06/04/19 4:[address] Patient Name: TROY HAYWOOD Encounter No: [id number] : 1955 Primary Insurance: MEDICAID [facility] DC Date: 06-02-2019 Planned Disposition: Nursing Facility YUN Cert External Planned Provider: TO BE DETERMINED DCP follow-up note: CM SPOKE TO PT AND DAUGHTER CHEPE, IN ROOM. PT IS AND FOR PAST 10 YEARS, BUT NOT LEGALLY. THEY CANNOT QUALIFY FOR MEDICAID FOR FLOW MANAGER CARE DUE TO NOT HAVING SPOUSE FINANICAL INFORMATION. PT AND DAUGHTER BOTH STATE THAT THEY DO NOT WANT TO PUT PT INTO FDC LONG TERM CARE WHERE SHE WILL JUST LAY IN THE BED. THEY DO NOT WANT FURTHER LONG TERM REFERRALS FAXED OUT. CM DISCUSSED THAT PT IS STABLE FOR DISCHARGE MEDICALLY. PT'S DAUGHTER REPORTS PT IS NOT HAVING BOWEL MOVEMENTS AND THAT THE FECES COMING OUT IS COMING AROUND AN IMPACTION AND NO ONE IS ADDRESSING THIS. CM NOTIFIED TOBY THOMAS WHO PROVIDED ORDERS FOR MEDICATION TO TREAT CONDITION. BEDSIDE NURSE NOTIFIED. PT'S DAUGHTER PROVIDED CM WITH 77 PAGES AND ASKED CM TO FAX TO [facility] FOR FINANCIAL ASSISTANCE REGARDING REHAB SERVICES FOR PT. CM FAXED TO [facility] FINANCIAL ASSISTANCE PROGRAM AT [phone]. PT'S DAUGHTER ADVISED THAT IF APPROVED, PT WILL HAVE TO GO TO A [facility] CENTER FOR REHAB. PT WAS DECLINED FLOW MANAGER CARE PLACEMENT AT [place]; PT AND FAMILY DECLINE TO HAVE FURTHER REFERRALS SENT OUT. FAMILY IS TRYING TO SECURE FINANCIAL ASSISTANCE FOR REHAB SERVICES THROUGH [facility]. CM TO CONTINUE TO FOLLOW AND ASSIST. Sandor Butt CASE MANAGEMENT DCP- Discharge Planning Updated by [id number]: Sandor Butt on 06/04/19 11:[address] Patient Name: TROY HAYWODO Encounter No: [id number] : 1955 Primary Insurance: MEDICAID [place] Anticipated DC Date: 06-02-2019 Planned Disposition: Nursing Facility YUN Cert External Planned Provider: WAITING FAMILY DECISION DCP follow-up note: CM RECEIVED CALL FROM ANNIE OF [facility] WHO ADVISED CM THAT PT HAS BEEN FIANCIALLY DENIED FOR PLACEMENT. CM SPOKE TO PT IN ROOM WHO ADVISED THAT SHE UNDERSTOOD THEY WERE JUST GOING TO LEAVE HER LAYING IN BED FOR A MONTH AND NOT GIVE HER ANY REHAB SERVICES. CM EXPLAINED THAT MEDICAID DOES NOT PAY FOR REHAB SERVICES, ONLY FLOW MANAGER CARE AND PT WOULD RECEIVE WHAT THEY CALL "RESTORATIVE CARE" FROM STAFF AT ANY LONG TERM, NOT THERAPY SERVICES. PT STATES SHE IS NOW ABLE TO STAND UP WITH THERAPY HERE. CM EXPLAINED THAT PT IS GETTING 8 TO 16 MINUTES OF THERAPY PER DAY AND THAT ALTHOUGH CM WAS HAPPY WITH PROGRESSION, PT IS MEDICALLY STABLE TO LEAVE THE HOSPITAL AND THAT SHE WOULD RECEIVE MORE THERAPY AT HOME WITH HOME HEALTH THAN IN THIS ACUTE HOSPITAL SETTING. PT STATES SHE IS NOT SURE WHAT HAPPENED, THAT CHEPE IS TAKING CARE OF THIS FOR HER AND THAT CHEPE WILL BE TO THE HOSPITAL IN A LITTLE WHILE TO SPEAK TO CM; PT BELIVES THAT CHEPE IS AGAIN WORKING ON TRYING TO GET TREY REHAB CARE THROUGH THE [facility]. PT HAS BEEN FINANCIALLY DECLINED FOR [facility]DC CARE PLACEMENT BY [facility]. PT DEFERRING PLANNING TO HER DAUGHTER, CHEPE. CM WAITING FAMILY TO ARRIVE TO DISCUSS FURTHER DISCHARGE PLANNING. Sandor Butt CASE MANAGEMENT DCP- Discharge Planning Updated by [id number]: Sandor Butt on 06/03/19 7:[address] Patient Name: TROY HAYWOOD Encounter No: [id number] : 1955 Primary Insurance: MEDICAID [place] Anticipated DC Date: 06-02-2019 Planned Disposition: Nursing Facility YUN Cert External Planned Provider: [facility], FDC CARE MEDICAID BED DISCHARGE PLANNING NOTE: CM FAXED REFERRAL UPDATE TO [facility] AT [phone]. CM WAITING ADMISSION DETERMINATION FROM [facility] FOR FDC CARE. WAITING FAMILY TO PROVIDE FINANCIAL INFORMATION FOR FDC CARE MEDICAID APPLICATION TO FACILITY. Sandor Butt CASE MANAGEMENT DCP- Discharge Planning Updated by [id number]: Sandor Butt on 06/02/19 3:[address] Patient Name: TROY HAYWOOD Encounter No: [id number] : 1955 Primary Insurance: MEDICAID [place] Anticipated DC Date: 06-02-2019 Planned Disposition: Nursing Facility [facility] Cert External Planned Provider: [facility], FLOW MANAGER CARE MEDICAID BED DCP follow-up note: CM FAXED REFERRAL UPDATE TO [facility] AT [phone]. CM WAITING ADMISSION DETERMINATION FROM [facility] FOR FDC CARE. Sandor Butt, CASE MANAGEMENT Appended by Sandor Butt on 06/02/2019 16:50 MANAGEMENT INTERN: CM RECEIVED CALL FROM LUIS OF [facility], , THEY RECEIVED THE UPDATE BY FAX AND WILL CONTACT FAMILY REGARDING FINANCIALS. LUIS REPORTS THEY ARE STILL WAITING ON NURSING TO ACCEPT FOR FLOW MANAGER CARE AND WILL ALSO NEED FINANCIAL CLEARANCE TO ENTER THE FACILITY. CM WAITING ADMISSION DETERMINATION FROM [facility] FOR FDC CARE. [place] CONTACTING FAMILY TO ASSIST WITH FINANCIAL INFORMATION FOR FDC CARE MEDICAID APPLICATION. ROSANNA Montaño DCP- Discharge Planning Updated by [id number]: Sandor Butt on 06/01/19 4:[address] Patient Name: TROY HAYWOOD Encounter No: [id number] : 1955 Primary Insurance: MEDICAID [place] Anticipated DC Date: 06-02-2019 Planned Disposition: Nursing Facility [facility] Cert External Planned Provider: [facility], FLOW MANAGER CARE MEDICAID BED DCP follow-up note: CM MET WITH PT AND DAUGHTER HOUSTON, WHO HAS MADE IT FROM [employer]. UPDATE PROVIDED. CM CALLED [facility]A INFORMED CM THAT REFERRAL FROM AND [facility] WAS RECEIVED, STAFF IN MEETING TODAY AND THEY WILL FINISH ADMISSION REVIEW TOMORROW, 06-02-19. CM NOTIFIED PT AND DAUGHTER IN ROOM. CM WAITING ADMISSION DETERMINATION FROM [facility] FOR FDC CARE. ROSANNA Montaño MANAGEMENT DCP- Discharge Planning Updated by [id number]: Sandor Butt on 05/31/19 3:[address] Patient Name: TROY HAYWOOD Encounter No: [id number] : 1955 Primary Insurance: MEDICAID [place] Anticipated DC Date: 06-01-2019 Planned Disposition: Nursing Facility YUN Cert External Planned Provider: [facility], FDC CARE MEDICAID BED DCP follow-up note: AFTER SEVERAL VISITS WITH PT IN ROOM, PHONE CALLS WITH DAUGHTERS, [facility], PT DECIDED TO CONSENT TO 30 DAYS OF FLOW MANAGER CARE AT [facility] AFTER PT'S DAUGTHERS, WITH AIDE OF [facility] [place] WHO WILL CONSIDER PT FOR CARE. PT SIGNED CHOICE. CM FAXED REFERRAL INFORMATION TO [place] AT [phone]. CM WAITING ADMISSION DETERMINATION FROM [facility] FOR FLOW MANAGER CARE. Sandor Butt CASE MANAGEMENT DCP- Discharge Planning Updated by [id number]: Sandor Butt on 05/28/19 3:[address] Patient Name: TROY HAYWOOD Encounter No: [id number] : 1955 Primary Insurance: MEDICAID [place] Anticipated DC Date: 06-02-2019 Planned Disposition: Home with Home Health External Planned Provider: [facility] DCP follow-up note: CM RECEIVED CALL FROM PT'S DAUGHTER, CHEPE, WHO VERIFIED THAT SHE WILL COME NEXT WEEK TO STAY WITH PT FOR TWO OR THREE WEEKS TO CARE FOR PT AT HOME. CHEPE WILL DISCUSS WITH HER MOTHER THAT SHE WILL HAVE TO BE ABLE TO STAND AND TRANSFER FOR CHEPE TO CARE FOR HER. CM REVIEWED THERAPY NOTES TO PRESENT. 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 PT HAS BEDSIDE COMMODE AND WHEELCHAIR AT HOME. CHEPE REPORTS NEED OF [facility] RESUMPTION. CHEPE WILL DISCUSS WITH PT AND TRY TO MOTIVATE HER TO MEET THERAPY GOALS PRIOR TO ARRIVAL ON NEXT FRIDAY OR FRIDAY. PT'S DAUGHTER PLANS TO TAKE PT HOME NEXT FRIDAY OR FRIDAY, THEY WILL NEED [facility] RES[facility], DENIES FURTHER NEEDS. CM TO FOLLOW AND ASSIST NEEDED. Sandor Butt CASE MANAGEMENT DCP- Discharge Planning Updated by [id number]: Sandor Butt on 05/28/19 2:[address] Patient Name: TROY HAYWOOD Encounter No: [id number] : 1955 Primary Insurance: MEDICAID [place] Anticipated DC Date: Planned Disposition: Nursing Facility YUN Cert External Planned Provider: TO BE DETERMINED DCP follow-up note: CM SPOKE TO [facility], SHE INFORMED CM THAT UPDATES HAVE BEEN RECEIVED, PT IS NOT MAKING ENOUGH PROGRESS WITH THERAPY THAT THEY DO NOT BELIEVE THAT PT WILL BE ABLE TO ACHIEVE THERAPY GOALS IN THE REMAINING 10 DAYS OF ACUTE DAYS THAT PT HAS REMAINING. CM NOTIFIED PT AND PROVIDED PT WITH NURSING FACILITY LISTING OF ALL AVAILABLE FACILITIES WITHIN 100 MILES OF [place]. PT WILL SPEAK TO HER DAUGHTER AND NOTIFY CM OF HER CHOICES. CM CALLED [facility], , TWICE; AUTOMATED MESSAGE INFORMED CM THAT THE NUMBER WAS RESTRICTED OR CURRENTLY UNAVAILABLE. CM WAITING PT AND FAMILY TO PROVIDE NURSING FACILITY CHOICES FOR FDC CARE. Sandor Butt, CASE MANAGEMENT Appended by Sandor Butt on 05/28/2019 12:07 CDT: CM SPOKE TO PT IN ROOM, NOTIFIED PT THAT CM TRIED AND COULD NOT REACH DAUGHTER HOUSTON VIA PHONE. PT REPORTS SHE SPOKE TO HOUSTON WHO TOLD HER THAT [facility] WILL NOT TAKE HER DUE TO WEIGHT; PT'S DAUGHTER TOLD PT THAT [facility] PROB[facility] WILL NOT TAKE HER. PT REPORTS THERE IS ONE IN [place] THAT MIGHT CONSIDER HER. CM OFFERED CHOICE FORM FOR SIGNATURE SO THAT CM COULD SEND REFERRALS AND BEGIN CALLING TO FIND PLACEMENT. PT REFUSED AND STATES SHE HAS A DAUGHTER, CHEPE, WHO IS A REGISTERED NURSE, THAT MAY BE COMING TO TAKE CARE OF PT AT HOME. PT'S DAUGHTER HOUSTON IS CALLING DAUGHTER CHEPE TO DISCUSS THE OPTION. PT STATES SHE WILL LET CM KNOW THE OUTCOME AND IF SHE WANTS CM TO EXPLORE LONG TERM CARE FOR HER. CM WAITING PT AND FAMILY TO PROVIDE NURSING FACILITY CHOICES AND FOR PT TO SIGN CONSENT FOR LONG TERM PLACEMENT. PT IS NOW HOPEFUL THAT HER DAUGHTER WHO IS A REGISTERED NURSE WILL COME AND STAY WITH PT AND TAKE CARE OF HER AT HOME. SANDOR BUTT, CASE MANAGEMENT Appended by Sandor Butt on 05/28/2019 14:27 CDT: CM RECEIVED MESSAGE THAT PT WANTS TO SEE CM. CM MET WITH PT IN ROOM WHO INFORMED CM THAT SHE HIS NOT GOING TO A LONG TERM, THAT HER DAUGHTER, CHEPE, WHO IS A NURSE, WILL BE HERE NEXT FRIDAY TO TAKE HER HOME AND WILL TAKE CARE OF PT AT HOME. PT ASKED FOR [facility]TION. CM DISCUSSED POSSIBLE NEED OF DEBORAH LIFT AND ASKED ABOUT ADDITIONAL EQUIPMENT. PT THINKS BY NEXT WEEK, SHE WILL BE ABLE TO TRANSFER WITHOUT AIDE OF LIFT DEVICE. CM NOTIFIED DR. FREEDMAN WHO INFORMED CM THAT HE WILL ORDER BLOOD GAS ON FRIDAY TO DETERMINE RESPIRATORY DISCHARGE NEEDS AT THAT TIME. PT HAS SIGNED RIGHT OF CHOICE FOR [facility] ALREADY. PT REPORTS HER DAUGHTER, WHO IS A REGISTERED NURSE, WILL BE HERE FRIDAY OF NEXT WEEK TO TAKE CARE OF PT AT HOME. PT PLANS TO DISCHARGE HOME WITH FAMILY AND [facility]. CM TO FOLLOW AND ASSIST NEEDED. ROSANNA MONTAÑO DCP- Discharge Planning Updated by [id number]: Sandor Butt on 05/28/19 7:[address] Patient Name: TROY HAYWOOD Encounter No: [id number] : 1955 Primary Insurance: MEDICAID [place] Anticipated DC Date: Planned Disposition: Inpatient Rehab External Planned Provider: [facility] DCP follow-up note: CM FAXED REFERRAL UPDATE TO [facility] AT [phone]. CM WAITING ADMISSION DETERMINATION FROM [facility] IN [place]. ROSANNA Montaño DCP- Discharge Planning Updated by [id number]: Sandor Butt on 05/27/19 2:[address] Patient Name: TROY HAYWOOD Encounter No: [id number] : 1955 Primary Insurance: MEDICAID [place] Anticipated DC Date: Planned Disposition: Inpatient Rehab External Planned Provider: [facility] DCP follow-up note: CM FAXED REFERRAL UPDATE TO [facility] AT [phone]. CM WAITING ADMISSION DETERMINATION FROM [facility] IN [place]. Sandor Butt CASE MANAGEMENT Appended by Sandor Butt on 05/27/2019 14:41 CDT: CM CALLED [facility], , LEFT MESSAGE ASKING FOR UPDATE ON REFERRAL AND TO KNOW IF THEY ARE STILL CONSIDERING PT FOR REHAB. CM WAITING ADMISSION DETERMINATION FROM [facility] IN [place]. ROSANNA Montaño DCP- Discharge Planning Updated by [id number]: Jesica Cartagena on 05/26/19 4:[address] Patient requested Trapeze bar to allow her to sit up in hospital bed. CM spoke Dr. Lawson and obtained approval for Trapeze bar. CM notified Radha in materials management of request for Trapeze bar. CM completed and gave Radha the order form for the Trapeze bar. Trapeze bar will be delivered. CM notified patient's CM, Christiano Butt, on status of Trapeze bar. DCP- Discharge Planning Updated by [id number]: Sandor Buttswell on 05/26/19 3:[address] Patient Name: TROY HAYWOOD Encounter No: [id number] : 1955 Primary Insurance: MEDICAID [facility] Date: Planned Disposition: Inpatient Rehab External Planned Provider: [facility] DCP follow-up note: CHRISTOPHER SPOKE TO PT'S DAUGHTER VIA PHONE, HOUSTON SALGADO, . CHRISTOPHER OBTAINED PERMISSION FROM PT TO DISCUSS CARE, TREATMENT AND DISCHARGE PLANNING WITH HOUSTON. HOUSTON INFORMED CHRISTOPHER THAT PT WAS IN REHAB AT [facility] LAST YEAR AND THEY WANT REFERRED TO [facility] AGAIN. CHRISTOPHER DISCUSSED PT'S VERY LOW LEVEL OF PHYSICAL CONDITIONING. PT'S DAUGHTER FEELS THAT PT CAN PARTICIPATE WITH THERAPY WITH GOAL TO RETURN HOME PREVIOUS WITH ABILITY TO TRANSFER TO ELECTRIC SCOOTER AND HOME HEALTH FOR CONTINUED HOME SERVICES. HOUSTON VERIFIED THAT PT HAS NO ADULTS ABLE TO LIVE WITH AND ASSIST PT AT HOME AT THIS TIME. HOUSTON ASKED ABOUT [facility] REHAB SERVICES THAT MAY TAKE PT AT NO COSTS DUE TO INCOME. CHRISTOPHER INFORMED HOUSTON THAT CHRISTOPHER WAS NOT FAMILIAR WITH ANY OF THESE PROGRAMS. HOUSTON WOULD LIKE TO HAVE PT EVALUATED FOR REHAB AT [facility] PRIOR TO ANY CONSIDERATION OF LONG TERM PLACEMENT PT WILL NOT GET THERAPY THERE. CHRISTOPHER SPOKE TO PT WHO IS IN AGREEMENT WITH PLAN. CM CALLED [facility], , NOTIFIED OF REHAB REQUEST; PT HAS ONLY 24 ACUTE DAYS THAT STARTED IN JANUARY, IT DEPENDS ON HOW MANY HAVE BEEN ALREADY USED, PT'S CONDITION AND NEEDS THAT WOULD HAVE TO BE MET IN THE REMAINING DAYS THAT PT HAS TO USE FOR REHAB . CHRISTOPHER FAXED REFERRALINFORMATION TO [facility] WITH CURRENT MAR AT [phone]. CHRISTOPHER WAITING ADMISSION DETERMINATION FROM [facility] IN [place]. Sandor Butt, CASE MANAGEMENT Appended by Sandor Butt on 05/26/2019 15:24 CDT: CM MET WITH PT, GRANDDAUGHTER, DAUGHTER HOUSTON VIA PHONE WITH CM DIESEL SCOOP OPERATOR, UNIT NURSE DATA ENTRY MACHINE OPERATOR, REPIRATORY THERAPIST AND DIESEL SCOOP OPERATOR OF THERAPY SERVICES REGARDING DISCHARGE PLANNING. CONCERNS OF PT'S PLAN TO GO HOME IN CURRENT CONDITION DISCUSSED. PT AND DAUGHTER HAVE ALREADY ASKED FOR REFERRAL TO [facility] REH[facility], CM HAS SENT IT AND WAITING DETERMINATION. PLAN "B" WAS AGREED TO BE NURSING FACILITY IF NOT ACCEPTED TO [facility] AND THAT CM WOULD ATTEMPT TO FIND ONE THAT MAY DONATE REHAB SERVICES. PT'S DAUGHTER IS RESEARCHING [employer]DING FROM [employer] FOR REHAB SERVICES. CM WAITING ADMISSION DETERMINATION FROM [facility] IN [place]. Sandor Butt, CASE MANAGEMENT DCP- Discharge Planning Updated by [id number]: Sandor Butt on 05/25/19 2:[address] Patient Name: TROY HAYWOOD Encounter No: [id number] : 1955 Primary Insurance: MEDICAID [facility] Date: Planned Disposition: Home HEALTH External Planned Provider: [facility] [employer], VISITING NURSES [facility] follow-up note: CM MET WITH PT IN ROOM TO DISCUSS DISCHARGE NEEDS AND PLANNING. CM DISCUSSED AVAILABILITY OF HOME HEALTH, REHAB SERVICES AND MEDICAL EQUIPMENT. PT REFUSES GROUP HOME FACILITY PLACEMENT. PT STATES PLAN TO RETURN HOME. 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 PT WAS ABLE TO AMBULATE SMALL DISTANCES AND TRANSFER SELF FROM BED TO ELECTRIC WHEELCHAIR AT HOME. PT THINKS SHE IS GOING TO BE ABLE TO TRANSFER SELF TO GO BACK HOME. PT WANTS HOME HEALTH RESUMED TO GO HOME. CM EXPRESSED CONCERN OF PT'S CURRENT LEVEL OF FUNCTIONING AND RETURNING HOME. PT DENIES HAVING FRIENDS OR FAMILY TO ASSIST WITH HER CARE AT HOME BUT IS NOT GOING TO A LONG TERM. PT THINKS SHE WILL NEED AN AMBULANCE FOR TRANSPORT HOME HER ELECTRIC WHEELCHAIR IS THERE. CM EXPLAINED TO PT THAT SHE WILL NEED TO DEMONSTRATE WITH THERAPY THE ABILITY TO TRANSFER AND SIT IN CHAIR FOR DISCHARGE. PT STATED UNDRESTANDING. CHOICE FOR [facility] ON AGING VISITING NURSES HOME HEALTH SIGNED. 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 PT REFUSED NURSING FACILITY PLACEMENT. PT WILL NEED TO DEMONSTRATE ABILITY TO TRANSFER AND SIT IN CHAIR FOR DISCHARGE SHE HAS ELECTRIC WHEELCHAIR AT HOME. CM TO ARRANGE HOME HEALTH RESUMPTION WITH [facility] ON AGING VISITING NURSES AGENCY IN [place] FOR DISCHARGE HOME. CM TO CONTINUE TO FOLLOW AND ASSIST NEEDED. Sandor Butt, CASE MANAGEMENT DCP- Discharge Planning Updated by [id number]: Aleisha Monroe on 05/19/19 7:[address] Patient Name: TROY HAYWOOD Admission Status: ER Accout number: [id number] Admission Date: 05-14-2019 : 1955 Admission Diagnosis: Attending: FABIO PINEDA Current LOS: 5 Anticipated DC Date: Planned Disposition: Home or Self Care Primary Insurance: MEDICAID [place] Discharge Planning Comments: CM met with patient and daughter to complete initial dc planning assessment. Patient recently extubated earlier today. CM educated patient on the CM role and verbal consent given by patient to complete assessment. Patient lives at home with her two young grand-daughters where she is independent with her care. At discharge patient plans to return home and feels this is a safe discharge. CM discussed availability of home health, rehab services, and medical equipment. Patient has Home 02 and HH with unknown providers. CM will f/u with patient @ later date to see if she is able to give providers. Patient denied known discharge needs at this time. CM will continue to follow and will assist as needed with dc plans/needs. Run Boat Operator: Aleisha Monroe DCPIA - Discharge Planning Initial Assessment Updated by [id number]: Sandor Butt on 05/28/19 9:36 am * How many steps to enter\\exit or inside your home? * PCP uncertain ? * [facility] * Preadmission Environment Home with Family * ADLs Independent * Other Equipment HOME 02, WALKER, SCOOTER, BSC, SC * List name and contact numbers for known caregivers / representatives who currently or will assist patient after discharge: CHEPE SUN - DAUGHTER- [phone] HOUSTON SALGADO, DTR - [phone] * Verbal permission to speak to the caregivers and representatives has been obtained from the patient. Yes * Community resources currently utilized Home Health * Please name any agencies selected above. [facility] * Additional services required to return to the preadmission environment? No * Can the patient safely return to the preadmission environment? Yes * Has this patient been hospitalized within the prior 30 days at any hospital? No Coverage Notice Reviewer: NAYLA Butt Notice Issued Date-Time: 05/25/2019 14:05 Notice Type: Patient Choice Letter Notice Delivered To: Patient Relationship to Patient: Chorus Dancer Name: Delivery Method: HAND - Hand Delivered Marry Days: Prior Verbal Notification: Recipient Understood Notice: Yes Recipient Signature: Yes Med Rec Note Co-signed by Attending: Coverage Notice Comment: [facility]- [facility]ISIT[facility] ([facility]) Reviewer: NAYLA Butt Notice Issued Date-Time: 05/31/2019 14:50 Notice Type: Patient Choice Letter Notice Delivered To: Patient Relationship to Patient: Chorus Dancer Name: Delivery Method: HAND - Hand Delivered Amrry Days: Prior Verbal Notification: Recipient Understood Notice: Yes Recipient Signature: Yes Med Rec Note Co-signed by Attending: Coverage Notice Comment: [facility] Reviewer: NAYLA Butt Notice Issued Date-Time: 06/09/2019 9:55 Notice Type: Patient Choice Letter Notice Delivered To: Patient Relationship to Patient: Chorus Dancer Name: Delivery Method: HAND - Hand Delivered Marry Days: Prior Verbal Notification: Recipient Understood Notice: Yes Recipient Signature: Yes Med Rec Note Co-signed by Attending: Coverage Notice Comment: [facility] Reviewer: NAYLA Butt Notice Issued Date-Time: 06/10/2019 16:25 Notice Type: Patient Choice Letter Notice Delivered To: Patient Relationship to Patient: Chorus Dancer Name: Delivery Method: HAND - Hand Delivered Marry Days: Prior Verbal Notification: Recipient Understood Notice: Yes Recipient Signature: Yes Med Rec Note Co-signed by Attending: Coverage Notice Comment: [facility] export: 06/10/19 3:27 Patient Name: TROY HAYWOOD Page [id number] at 1641 All edits/amendments must be made on the electronic document DICTATION DATE: 06/10/19 1640 FILM CUTTER: MISHEL 06/10/19 1640 RPT#: [id number] DC DATE: STATUS: ADM IN [facility] [address] [place] [address] END OF REPORT
--- NOTE | 2019-06-10 18:07 | NUR ---
I have reviewed this patient and I concur with the Shift Assessment completed by the Licensed Practical Nurse today this shift.
--- NOTE | 2019-06-10 19:10 | NUR ---
BEDSIDE REPORT RECEIVED FROM DAY SHIFT, PT CARE ASSUMED. WROTE NAME ON BOARD. PT LYING IN BED, WATCHING TV, AAOX4, DAUGHTER AT BEDSIDE. PT DENIES ANY NEEDS AT THIS TIME. BED IN LOWEST POSITION, SR X2, CALL LIGHT WITHIN REACH. WILL CONTINUE TO MONITOR.
--- NOTE | 2019-06-10 23:23 | NUR ---
PT C/O PAIN IN LOWER BACK, A PAIN OF 6/10. PO PRN TYLENOL SUSP GIVEN AT THIS TIME. PT PLACED ON BIPAP, SCD'S ON. WILL CPOC.
[2019-06-11] VITALS: BP 136/54
--- NOTE | 2019-06-11 07:25 | NUR ---
PT STATES SHE HAS BEEN HAVING TROUBLE SWALLOWING HER PILLS ALL AT ONCE. RAISED PT'S HOB UP AND SHE STATES "YOU'RE CUTTING OFF MY AIRWAY! PUT ME BACK DOWN" LOWERED PT'S BED BACK TO WHERE SHE WAS TO BEGIN WITH AND PT TOOK PILLS ONE BY ONE. PT'S HOB IS AND WAS AT 25 DEGREES.
[2019-06-11 09:10] VITALS: BP 122/55
--- NOTE | 2019-06-11 10:22 | NUR ---
PT'S DAUGHTER C/O FLUID ON PT AND THAT IT IS HURTING PT. I STATED TO HER I WILL CALL MD. JOSHUA CHASE AND SHE STATES "i know."
--- NOTE | 2019-06-11 10:33 | NUR ---
SKPOKE WITH HAYDEE PEREZ ABOUT PT C/O SWELLING HURTING HER AND SHE STATES TO GIVE 40MG LASIX IV ONE TIME. I VERBALIZED UNDERSTANDING.
[2019-06-11 11:40] VITALS: BP 112/49
--- NOTE | 2019-06-11 11:56 | NUR ---
I have reviewed this patient and I concur with the Shift Assessment completed by the Licensed Practical Nurse today this shift.
--- NOTE | 2019-06-11 12:19 | NUR ---
OT NOTE: DTR AND PT UPSET REGARDING NO ONE BEING CONCERNED ABOUT INCREASING SIZE AND HARDNESS OF R SIDE. BOTH REPORTING INCREASED PAIN TODAY. IT DOES APPEAR LARGER, HOWEVER, SUGGESTED THAT IT WAS PROBABLY DUE TO PT STAYING ON R SIDE AND DECREASED MOBILITY COMPARED TO WHEN SHE WAS AT HOME. NURSE AND NURSE PRACTITIONER EXAMINED. PT AGREEABLE TO THERAPY. BED MOB WITH MOD ASSIST. GOOD STATIC SITTING ON EOB. SIT TO STAND WITH MOD ASSIST X 2 AND WALKER FOR APPROX 1.5-2 MIN X 3 TRIALS. PT REQUIRED TOTAL ASSIST WITH TOILET HYGIENE AND PERINEAL CARE. BACK TO BED WITH MAX ASSIST. PT EDUCATED AND INSTRUCTED ON USING ARMS AND LEGS TO PUSH UP IN BED. PT ABLE TO PERFORM WITH MOD ASSIST. INSTRUCTED TO CONT EXS WITH TRAPEZE AND USE GRAB BARS FOR BED MOB TO KEEP PRESSURE OFF OF R SIDE. SAÚL ESCAMILLA, OTR/L
[2019-06-11 13:05] LABS: HEMATOCRIT 31.3 % (36.0-48.0); HEMOGLOBIN 9.5 g/dL (12-16); LYMPHOCYTES 25.6 % (15-50); MCH 27.6 pg (26.0-34.0); MCHC 30.4 g/dL (31.0-37.0); MEAN PLATELET VOLUME 10.3 fL (7.4-10.4); NEUTROPHILS 47.7 % (40-80); RBC 3.44 10x6/uL (4.00-5.40); WBC 4.1 10x3/uL (4.8-10.8)
[2019-06-11 13:08] LABS: PLATELET COUNT 284 10x3/uL (130-400)
[2019-06-11 13:12] LABS: ANION GAP 8.7 mmol/L (8-16); CALCIUM 8.3 mg/dL (8.5-10.1); CARBON DIOXIDE 32.3 mmol/L (21.0-32.0); CREATININE - SERUM 1.4 mg/dL (0.6-1.3)
--- NOTE | 2019-06-11 16:35 | MORECARE ---
CASE MANAGEMENT DISCHARGE SUMMARY PATIENT: TROY HAYWOOD UNIT: [id number] ADM DATE: 05/14/19 AGE: 64 : 57 SEX: F ROOM/BED: D.2140 AUTHOR: DAYDAY,DOC PHYSICIAN: REFERRING PHYSICIAN: FABIO PINEDA MD DATE OF SERVICE: 06/11/19 Discharge Plan Patient Name: TROY HAYWOOD Facility: [facility]:[place] : 1955 Planned Disposition: Nursing Facility YUN Cert Anticipated Discharge Date: 06/11/19 Discharge Date: Expected LOS: 28 Initial Reviewer: [id number] Initial Review Date: 05/19/2019 Generated: 06/11/19 5:34 pm Comments DCP- Discharge Planning Updated by [id number]: Sandor Butt on 06/11/19 3:[address] Patient Name: TROY HAYWOOD Encounter No: [id number] : 1955 Primary Insurance: [place]ID [place] Anticipated DC Date: 06-11-2019 Planned Disposition: Nursing Facility YUN Cert External Planned Provider: : DCP follow-up note: CM RECEIVED MESSAGE FROM TROY OF [facility], THEY WILL NOT ACCEPT PT. CM FAXED REFERRAL UDPATE TO [facility] AT [phone]. CM FAXED UPDATE TO [facility] AT [phone]. CHAR INFORMED CM THAT SHE ANTICIPATES A BERIATRIC PRISON BED OPENING "SOON". CM NOTIFIED PT AND DAUGHTER OF PROGRESS / LACK THEREOF IN ROOM. - CM WAITING ADMISSION DETERMINATION FROM [facility] FOR FELLED SEAM OPERATOR CHAINSTITCH CARE PLACEMENT IN ONE OF HER AFFILIATED NURSING HOMES. - CM WAITING RETURN CALL FROM [facility] IN [place] REGARDING TREY REHAB. Sandor Butt CASE MANAGEMENT DCP- Discharge Planning Updated by [id number]: Sandor Butt on 06/10/19 3:[address] Patient Name: TROY HAYWOOD Encounter No: [id number] : 1955 Primary Insurance: [place] Anticipated DC Date: 06-11-2019 Planned Disposition: Nursing Facility YUN Cert External Planned Provider: [facility] ACCEPTING FAC[facility] DCP follow-up note: - CM RECEIVED CALL FROM [facility], THEY HAVE NOT AVAILABILITY FOR TREY REHAB BED. CM RECEIVED CALL FROM MITCH OF [facility] IN [facility], THEY HAVE NOT RECEIVED TREY APPLICATION AND HAVE NO CURRENT BEDS BUT WOULD CONSIDER PT. CM RETURNED CALL TO MITCH AT [facility], , INFORMED THAT TREY APPLICATION HAD BEEN FAXED TO [employer] [facility] IN [facility], TELEPHONE CONTACT [phone]. HETAL ASKED FOR REFERRAL TO BE SENT AND HE WILL SCREEN FOR ADMISSION. CM FAXED REFERRAL TO [facility] AT [phone]. CM NOTIFIED PT AND DAUGHTER OF PROGRESS IN ROOM. PT AND DAUGHTER ASKED FOR CM TO SEND REFERRAL TO [facility] IN [place]. CHOICE SIGNED. CM FAXED REFERRAL TO [facility]IA [facility]OY [facility] AT [phone]. - CM WAITING ADMISSION DETERMINATION FROM [facility] FOR FELLED SEAM OPERATOR CHAINSTITCH CARE PLACEMENT IN ONE OF HER AFFILIATED NURSING HOMES. - CM WAITING RETURN CALL FROM [facility] IN [place] REGARDING TREY REHAB. - CM WAITING ADMISSION DETERMINATION FROM [facility]. Sandor Butt, CASE MANAGEMENT DCP- Discharge Planning Updated by [id number]: Sandor Butt on 06/09/19 3:[address] Patient Name: TROY HAYWOOD Encounter No: [id number] : 1955 Primary Insurance: [place]ID [place] Anticipated DC Date: 06-10-2019 Planned Disposition: Nursing Facility [facility] External Planned Provider: FIRST ACCEPTING FACILITY DCP follow-up note: CM SPOKE TO PT AND DAUGHTER, CHEPE, THEY WILL LET CM SEEK PRISON PLACEMENT FOR THEM TO CONSIDER BUT STILL DO NOT WANT [facility] IF THEY CAN OBTAIN REHAB THROUGH THE [facility]. DAUGHTER ADVISED SHE HAS CONFIRMED RECEIPT OF THE APPLICATION FAXED TO THE [facility] AND IS IN PROCESS OF REVIEW. DAUGHTER ASKED CM TO CHECK INTO REHAB'S THAT MAY HAVE [facility] AFFILIATION. CM CALLED [facility], , REQUESTED ASSISTANCE IN [facility] PLACEMENT WITH INTENT TO RETURN HOME. CHAR STATES THAT SHE MAY HAVE HOME'S WILL ACCEPT BARIATRIC PATIENT AND WILL ATTEMPT PLACEMENT. CHAR WILL MEET WITH PT LATER TODAY. CM FAXED REFERRAL TO [facility] AT [phone]. CM SPOKE TO TROY MIMS OF [facility], TROY INFORMED CM THAT SHE HAS NO HOMES IN HER GROUP THAT MAY ASSIST WITH PLACEMENT. CM CALLED [facility] [place], WAS ADVISED BY [facility] THAT THEY WILL NOT CONSIDER FOR TREY CARE, THEY ARE NOT AFFILIATED WITH [facility]. CM CALLED [facility], , SPOKE TO CHELO WHO INFORMED CM THAT THEY ARE NOT AFFILIATED WITH [facility] BUT WILL CONSIDER PT FOR TREY REHAB. CM FAXED REFERRAL TO [facility] AT [phone]. CM CALLED [facility] IN [place], , SPOKE TO DHEERAJ WHO REPORTS THEY HAVE NO OPEN REHAB BEDS AND HAVE NO PROJECTED DISCHARGES SOON. THEY DO NOT HAVE WEIGHT LIMITS. DHEERAJ DID NOT WANT REFERRAL FAXED, SHE WILL REPORT TO BREN WHO WILL CHECK WITH THE [facility] REGARDING APPLICATION STATUS AND CALL CM TOMORROW, 06-10-19. CM NOTIFIED PT IN ROOM OF PROGRESS. PT STATES SHE MAY BE ABLE TO TRANSFER SELF AND GO HOME BEFORE CM FINDS REHAB FOR HER. - CM WAITING ADMISSION DETERMINATION FROM [facility] FOR [facility] PLACEMENT IN ONE OF HER AFFILIATED NURSING HOMES. - CM WAITING ADMISSION DETERMINATION FROM [facility] FOR TREY REHAB BED. - CM WAITING RETURN CALL FROM [facility] IN [place] REGARDING [facility]Y REHAB. Sandor Butt, CASE MANAGEMENT DCP- Discharge Planning Updated by [id number]: Sandor Butt on 06/04/19 4:[address] Patient Name: TROY HAYWOOD Encounter No: [id number] : 1955 Primary Insurance: [place] Anticipated DC Date: 06-02-2019 Planned Disposition: Nursing Facility YUN Cert External Planned Provider: TO BE DETERMINED DCP follow-up note: CM SPOKE TO PT AND DAUGHTER CHEPE, IN ROOM. PT IS AND FOR PAST 10 YEARS, BUT NOT LEGALLY. THEY CANNOT QUALIFY FOR MEDICAID FOR [facility] DUE TO NOT HAVING SPOUSE FINANICAL INFORMATION. PT AND DAUGHTER BOTH STATE THAT THEY DO NOT WANT TO PUT PT INTO FELLED SEAM OPERATOR CHAINSTITCH PRISON CARE WHERE SHE WILL JUST LAY IN THE BED. THEY DO NOT WANT FURTHER PRISON REFERRALS FAXED OUT. CM DISCUSSED THAT PT IS STABLE FOR DISCHARGE MEDICALLY. PT'S DAUGHTER REPORTS PT IS NOT HAVING BOWEL MOVEMENTS AND THAT THE FECES COMING OUT IS COMING AROUND AN IMPACTION AND NO ONE IS ADDRESSING THIS. CM NOTIFIED TOBY THOMAS WHO PROVIDED ORDERS FOR MEDICATION TO TREAT CONDITION. BEDSIDE NURSE NOTIFIED. PT'S DAUGHTER PROVIDED CM WITH 77 PAGES AND ASKED CM TO [facility]X TO [facility] FOR FINANCIAL ASSISTANCE REGARDING REHAB SERVICES FOR PT. CM FAXED TO [facility] FIN[facility] AT [phone]. PT'S DAUGHTER ADVISED THAT IF APPROVED, PT WILL HAVE TO GO TO A [facility] FOR REHAB. PT WAS DECLINED FELLED SEAM OPERATOR CHAINSTITCH CARE PLACEMENT AT [place]; PT AND FAMILY DECLINE TO HAVE FURTHER REFERRALS SENT OUT. FAMILY IS TRYING TO SECURE FINANCIAL ASSISTANCE FOR REHAB SERVICES TH[facility]OUGH [facility]. CM TO CONTINUE TO FOLLOW AND ASSIST. Sandor Butt, CASE MANAGEMENT DCP- Discharge Planning Updated by [id number]: Sandor Butt on 06/04/19 11:[address] Patient Name: TROY HAYWOOD Encounter No: [id number] : 1955 Primary Insurance: MEDICAID [facility] DC Date: 06-02-2019 Planned Disposition: Nursing Facility [facility] External Planned Provider: WAITING FAMILY DECISION DCP follow-up note: CM RECEIVED CALL FROM [facility] WHO ADVISED CM THAT PT HAS BEEN FIANCIALLY DENIED FOR PLACEMENT. CM SPOKE TO PT IN ROOM WHO ADVISED THAT SHE UNDERSTOOD THEY WERE JUST GOING TO LEAVE HER LAYING IN BED FOR A MONTH AND NOT GIVE HER ANY REHAB SERVICES. CM EXPLAINED THAT MEDICAID DOES NOT PAY FOR REHAB SERVICES, ONLY FELLED SEAM OPERATOR CHAINSTITCH CARE AND PT WOULD RECEIVE WHAT THEY CALL "RESTORATIVE CARE" FROM STAFF AT ANY PRISON, NOT THERAPY SERVICES. PT STATES SHE IS NOW ABLE TO STAND UP WITH THERAPY HERE. CM EXPLAINED THAT PT IS GETTING 8 TO 16 MINUTES OF THERAPY PER DAY AND THAT ALTHOUGH CM WAS HAPPY WITH PROGRESSION, PT IS MEDICALLY STABLE TO LEAVE THE HOSPITAL AND THAT SHE WOULD RECEIVE MORE THERAPY AT HOME WITH HOME HEALTH THAN IN THIS ACUTE HOSPITAL SETTING. PT STATES SHE IS NOT SURE WHAT HAPPENED, THAT CHEPE IS TAKING CARE OF THIS FOR HER AND THAT CHEPE WILL BE TO THE HOSPITAL IN A LITTLE WHILE TO SPEAK TO CM; PT BELIVES THAT CHEPE IS AGAIN WORKING ON TRYING TO GET TREY REHAB CARE THROUGH THE [facility]. PT HAS BEEN FINANCIALLY DECLINED FOR [facility] PLACEMENT BY [facility]. PT DEFERRING PLANNING TO HER DAUGHTER, CHEPE. CM WAITING FAMILY TO ARRIVE TO DISCUSS FURTHER DISCHARGE PLANNING. ROSANNA Monroe DCP- Discharge Planning Updated by [id number]: Sandor Butt on 06/03/19 7:[address] Patient Name: TROY HAYWOOD Encounter No: [id number] : 1955 Primary Insurance: [place] Anticipated DC Date: 06-02-2019 Planned Disposition: Nursing Facility YUN Cert External Planned Provider: [facility] FELLED SEAM OPERATOR CHAINSTITCH [facility] MEDICAID BED DISCHARGE PLANNING NOTE: CM FAXED REFERRAL UPDATE TO [facility] AT [phone]. CM WAITING ADMISSION DETERMINATION FROM [facility] FOR [facility]. WAITING FAMILY TO PROVIDE FINANCIAL INFORMATION FOR [facility] MEDICAID APPLICATION TO FACILITY. ROSANNA Monroe DCP- Discharge Planning Updated by [id number]: Sandor Butt on 06/02/19 3:[address] Patient Name: TROY HAYWOOD Encounter No: [id number] : 1955 Primary Insurance: [place] Anticipated DC Date: 06-02-2019 Planned Disposition: Nursing Facility [facility] Cert External Planned Provider: [facility] MEDICAID BED DCP follow-up note: CM FAXED REFERRAL UPDATE TO [facility] AT [phone]. CM WAITING ADMISSION DETERMINATION FROM [facility]. Sandor Butt CASE MANAGEMENT Appended by Sandor Butt on 06/02/2019 16:50 SET UP MECHANIC COATING MACHINES: CM RECEIVED CALL FROM [facility], , THEY RECEIVED THE UPDATE BY FAX AND WILL CONTACT FAMILY REGARDING FINANCIALS. LUIS REPORTS THEY ARE STILL WAITING ON NURSING TO ACCEPT FOR FELLED SEAM OPERATOR CHAINSTITCH CARE AND WILL ALSO NEED FINANCIAL CLEARANCE TO ENTER THE FACILITY. CM WAITING ADMISSION DETERMINATION FROM [facility] FOR FELLED SEAM OPERATOR CHAINSTITCH CARE[facility] TO ASSIST WITH FINANCIAL INFORMATION FOR FELLED SEAM OPERATOR CHAINSTITCH CARE MEDICAID APPLICATION. Sandor Daquan, CASE MANAGEMENT DCP- Discharge Planning Updated by [id number]: Sandor Butt on 06/01/19 4:[address] Patient Name: TROY HAYWOOD Encounter No: [id number] : 1955 Primary Insurance: [place] Anticipated DC Date: 06-02-2019 Planned Disposition: Nursing Facility YUN Cert External Planned Provider: [facility] MEDICAID BED DCP follow-up note: CM MET WITH PT AND DAUGHTER HOUSTON, WHO HAS MADE IT FROM [place]. UPDATE PROVIDED. CM CALLED [facility], DALE INFORMED CM THAT REFERRAL FROM CM AND [facility] WAS RECEIVED, STAFF IN MEETING TODAY AND THEY WILL FINISH ADMISSION REVIEW TOMORROW, 06-02-19. CM NOTIFIED PT AND DAUGHTER IN ROOM. CM WAITING ADMISSION DETERMINATION FROM [facility]. Sandor Butt CASE MANAGEMENT DCP- Discharge Planning Updated by [id number]: Sandor Butt on 05/31/19 3:[address] Patient Name: TROY HAYWOOD Encounter No: [id number] : 1955 Primary Insurance: [place] Anticipated DC Date: 06-01-2019 Planned Disposition: Nursing Facility YUN Cert External Planned Provider: [facility] MEDICAID BED DCP follow-up note: AFTER SEVERAL VISITS WITH PT IN ROOM, PHONE CALLS WITH DAUGHTERS, [email or web address] [facility], PT DECIDED TO CONSENT TO 30 DAYS OF FELLED SEAM OPERATOR CHAINSTITCH CARE AT [facility] AFTER PT'S DAUGTHERS, WITH AIDE OF [facility] LOCATED [place] WHO WILL CONSIDER PT FOR CARE. PT SIGNED CHOICE. CM FAXED REFERRAL INFORMATION TO [place] AT [phone]. CM WAITING ADMISSION DETERMINATION FROM [facility] FOR [facility]. Sandor Butt CASE MANAGEMENT DCP- Discharge Planning Updated by [id number]: Sandor Butt on 05/28/19 3:[address] Patient Name: TROY HAYWOOD Encounter No: [id number] : 1955 Primary Insurance: [place]ID [place] Anticipated DC Date: 06-02-2019 Planned Disposition: Home with Home Health External Planned Provider: [email or web address] [facility] DCP follow-up note: CM RECEIVED CALL FROM PT'S DAUGHTER, CHEPE, WHO VERIFIED THAT SHE WILL COME NEXT WEEK TO STAY WITH PT FOR TWO OR THREE WEEKS TO CARE FOR PT AT HOME. CHEPE WILL DISCUSS WITH HER MOTHER THAT SHE WILL HAVE TO BE ABLE TO STAND AND TRANSFER FOR CHEPE TO CARE FOR HER. CM REVIEWED THERAPY NOTES TO PRESENT. 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 PT HAS BEDSIDE COMMODE AND WHEELCHAIR AT HOME. CHEEP REPORTS NEED OF [facility] RESUMPTION. CHEPE WILL DISCUSS WITH PT AND TRY TO MOTIVATE HER TO MEET THERAPY GOALS PRIOR TO ARRIVAL ON NEXT FRIDAY OR FRIDAY. PT'S DAUGHTER PLANS TO TAKE PT HOME NEXT FRIDAY OR FRIDAY, THEY WILL NEED [facility] RESUMPTION, DENIES FURTHER NEEDS. CM TO FOLLOW AND ASSIST NEEDED. Sandor Butt, CASE MANAGEMENT DCP- Discharge Planning Updated by [id number]: Sandor Butt on 05/28/19 2:[address] Patient Name: TROY HAYWOOD Encounter No: [id number] : 1955 Primary Insurance: [place] Anticipated DC Date: Planned Disposition: Nursing Facility YUN Cert External Planned Provider: TO BE DETERMINED DCP follow-up note: CM SPOKE TO [facility], SHE INFORMED CM THAT UPDATES HAVE BEEN RECEIVED, PT IS NOT MAKING ENOUGH PROGRESS WITH THERAPY THAT THEY DO NOT BELIEVE THAT PT WILL BE ABLE TO ACHIEVE THERAPY GOALS IN THE REMAINING 10 DAYS OF ACUTE DAYS THAT PT HAS REMAINING. CM NOTIFIED PT AND PROVIDED PT WITH NURSING FACILITY LISTING OF ALL AVAILABLE FACILITIES WITHIN [address] [place]. PT WILL SPEAK TO HER DAUGHTER AND NOTIFY CM OF HER CHOICES. CM CALLED [facility], , TWICE; AUTOMATED MESSAGE INFORMED CM THAT THE NUMBER WAS RESTRICTED OR CURRENTLY UNAVAILABLE. CM WAITING PT AND FAMILY TO PROVIDE NURSING FACILITY CHOICES FOR FELLED SEAM OPERATOR CHAINSTITCH CARE. Sandor Butt, CASE MANAGEMENT Appended by Sandor Butt on 05/28/2019 12:07 CDT: CM SPOKE TO PT IN ROOM, NOTIFIED PT THAT CM TRIED AND COULD NOT REACH DAUGHTER HOUSTON VIA PHONE. PT REPORTS SHE SPOKE TO [facility]ON WHO TOLD HER THAT [facility] WILL NOT TAKE HER DUE TO WEIGHT; PT'S DAUGHTER TOLD PT THAT [facility] PROBAB[facility] WILL NOT TAKE HER. PT REPORTS THERE IS ONE IN [place] THAT MIGHT CONSIDER HER. CM OFFERED CHOICE FORM FOR SIGNATURE SO THAT CM COULD SEND REFERRALS AND BEGIN CALLING TO FIND PLACEMENT. PT REFUSED AND STATES SHE HAS A DAUGHTER, CHEPE, WHO IS A REGISTERED NURSE, THAT MAY BE COMING TO TAKE CARE OF PT AT HOME. PT'S DAUGHTER HOUSTON IS CALLING DAUGHTER CHEPE TO DISCUSS THE OPTION. PT STATES SHE WILL LET CM KNOW THE OUTCOME AND IF SHE WANTS CM TO EXPLORE PRISON CARE FOR HER. CM WAITING PT AND FAMILY TO PROVIDE NURSING FACILITY CHOICES AND FOR PT TO SIGN CONSENT FOR PRISON PLACEMENT. PT IS NOW HOPEFUL THAT HER DAUGHTER WHO IS A REGISTERED NURSE WILL COME AND STAY WITH PT AND TAKE CARE OF HER AT HOME. SANDOR BUTT, CASE MANAGEMENT Appended by Sandor Butt on 05/28/2019 14:27 CDT: CM RECEIVED MESSAGE THAT PT WANTS TO SEE CM. CM MET WITH PT IN ROOM WHO INFORMED CM THAT SHE HIS NOT GOING TO A PRISON, THAT HER DAUGHTER, CHEPE, WHO IS A NURSE, WILL BE HERE NEXT FRIDAY TO TAKE HER HOME AND WILL TAKE CARE OF PT AT HOME. PT ASKED FOR [facility] RESUMPTION. CM DISCUSSED POSSIBLE NEED OF DEBORAH LIFT AND ASKED ABOUT ADDITIONAL EQUIPMENT. PT THINKS BY NEXT WEEK, SHE WILL BE ABLE TO TRANSFER WITHOUT AIDE OF LIFT DEVICE. CM NOTIFIED DR. FREEDMAN WHO INFORMED CM THAT HE WILL ORDER BLOOD GAS ON FRIDAY TO DETERMINE RESPIRATORY DISCHARGE NEEDS AT THAT TIME. PT HAS SIGNED RIGHT OF CHOICE FOR [facility] ALREADY. PT REPORTS HER DAUGHTER, WHO IS A REGISTERED NURSE, WILL BE HERE FRIDAY OF NEXT WEEK TO TAKE CARE OF PT AT HOME. PT PLANS TO DISCHARGE HOME WITH FAMILY AND [facility]. CM TO FOLLOW AND ASSIST NEEDED. SANDOR BUTT, CASE MANAGEMENT DCP- Discharge Planning Updated by [id number]: Sandor Butt on 05/28/19 7:[address] Patient Name: TROY HAYWOOD Encounter No: [id number] : 1955 Primary Insurance: MEDICAID [facility] DC Date: Planned Disposition: Inpatient Rehab External Planned Provider: [facility] DCP follow-up note: CM FAXED REFERRAL UPDATE TO [facility] AT [phone]. CM WAITING ADMISSION DETERMINATION FROM [facility] IN [place]. Sandor Butt, CASE MANAGEMENT DCP- Discharge Planning Updated by [id number]: Sandor Butt on 05/27/19 2:[address] Patient Name: TROY HAYWOOD Encounter No: [id number] : 1955 Primary Insurance: [place] Anticipated DC Date: Planned Disposition: Inpatient Rehab External Planned Provider: [facility] DCP follow-up note: CM FA[facility]ED [facility]ERR[facility] UPDATE [facility] AT [phone]. CM WAITING ADMISSION DETERMINATION FROM [facility] IN [place]. Sandor Butt, CASE MANAGEMENT Appended by Sandor Butt on 05/27/2019 14:41 CDT: CM CALLED [facility], , LEFT MESSAGE ASKING FOR UPDATE ON REFERRAL AND TO KNOW IF THEY ARE STILL CONSIDERING PT FOR REHAB. CM WAITING ADMISSION DETERMINATION FROM [facility] IN [place]. Sandor Butt, CASE MANAGEMENT DCP- Discharge Planning Updated by [id number]: Jesica Cartagena on 05/26/19 4:[address] Patient requested Trapeze bar to allow her to sit up in hospital bed. CM spoke Dr. Lawson and obtained approval for Trapeze bar. CM notified Radha in materials management of request for Trapeze bar. CM completed and gave Radha the order form for the Trapeze bar. Trapeze bar will be delivered. CM notified patient's CM, Christiano Butt, on status of Trapeze bar. DCP- Discharge Planning Updated by [id number]: Sandor Butt on 05/26/19 3:[address] Patient Name: TROY HAYWOOD Encounter No: [id number] : 1955 Primary Insurance: [place] Anticipated DC Date: Planned Disposition: Inpatient Rehab External Planned Provider: [facility] DCP follow-up note: CM SPOKE TO PT'S DAUGHTER VIA PHONE, HOUSTON NAOMI, . CM OBTAINED PERMISSION FROM PT TO DISCUSS CARE, TREATMENT AND DISCHARGE PLANNING WITH [facility]. CONRAD INFORMED CM THAT PT WAS IN REHAB AT [facility] LAST YEAR AND THEY WANT REFERRED TO [facility]. CM DISCUSSED PT'S VERY LOW LEVEL OF PHYSICAL CONDITIONING. PT'S DAUGHTER FEELS THAT PT CAN PARTICIPATE WITH THERAPY WITH GOAL TO RETURN HOME PREVIOUS WITH ABILITY TO TRANSFER TO ELECTRIC SCOOTER AND HOME HEALTH FOR CONTINUED HOME SERVICES. HOUSTON VERIFIED THAT PT HAS NO ADULTS ABLE TO LIVE WITH AND ASSIST PT AT HOME AT THIS TIME. HOUSTON ASKED ABOUT [facility] RE[facility] SERVICES THAT MAY TAKE PT AT NO COSTS DUE TO INCOME. CM INFORMED HOUSTON THAT CM WAS NOT FAMILIAR WITH ANY OF THESE PROGRAMS. HOUSTON WOULD LIKE TO HAVE PT EVALUATED FOR REHAB AT [facility] PRIOR TO ANY CONSIDERATION OF PRISON PLACEMENT PT WILL NOT GET THERAPY THERE. CM SPOKE TO PT WHO IS IN AGREEMENT WITH PLAN. CM CALLED [facility], , NOTIFIED OF REHAB REQUEST; PT HAS ONLY 24 ACUTE DAYS THAT STARTED IN JANUARY, IT DEPENDS ON HOW MANY HAVE BEEN ALREADY USED, PT'S CONDITION AND NEEDS THAT WOULD HAVE TO BE MET IN THE REMAINING DAYS THAT PT HAS TO USE FOR REHAB . CM FAXED REFERRALINFORMATION TO [facility] WITH CURRENT MAR AT [phone]. CM WAITING ADMISSION DETERMINATION FROM [facility] IN [place]. Sandor Butt, CASE MANAGEMENT Appended by Sandor Butt on 05/26/2019 15:24 CDT: CM MET WITH PT, GRANDDAUGHTER, DAUGHTER HOUSTON VIA PHONE WITH CM ELECTRICAL SOLDERER, UNIT NURSE MACHINE WHITENER, REPIRATORY THERAPIST AND ELECTRICAL SOLDERER OF THERAPY SERVICES REGARDING DISCHARGE PLANNING. CONCERNS OF PT'S PLAN TO GO HOME IN CURRENT CONDITION DISCUSSED. PT AND DAUGHTER [facility], CM HAS SENT IT AND WAITING DETERMINATION. PLAN "B" WAS AGREED TO BE NURSING FACILITY IF NOT ACCEPTED TO [facility] AND THAT CM WOULD ATTEMPT TO FIND ONE THAT MAY DONATE REHAB SERVICES. PT'S DAUGHTER IS RESEARCHING [employer] FUNDING FROM [facility] FOR REHAB SERVICES. CHRISTOPHER WAITING ADMISSION DETERMINATION FROM [facility] IN [place]. ROSANNA Monroe MANAGEMENT DCP- Discharge Planning Updated by [id number]: Sandor Butt on 05/25/19 2:[address] Patient Name: TROY HAYWOOD Encounter No: [id number] : 1955 Primary Insurance: MEDICAID [facility] Date: Planned Disposition: Home HEALTH External Planned Provider: [facility], [facility]IS[facility]ING [facility] DCP follow-up note: CM MET WITH PT IN ROOM TO DISCUSS DISCHARGE NEEDS AND PLANNING. CM DISCUSSED AVAILABILITY OF HOME HEALTH, REHAB SERVICES AND MEDICAL EQUIPMENT. PT REFUSES PENITENTIARY FACILITY PLACEMENT. PT STATES PLAN TO RETURN HOME. 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 PT WAS ABLE TO AMBULATE SMALL DISTANCES AND TRANSFER SELF FROM BED TO ELECTRIC WHEELCHAIR AT HOME. PT THINKS SHE IS GOING TO BE ABLE TO TRANSFER SELF TO GO BACK HOME. PT WANTS HOME HEALTH RESUMED TO GO HOME. CM EXPRESSED CONCERN OF PT'S CURRENT LEVEL OF FUNCTIONING AND RETURNING HOME. PT DENIES HAVING FRIENDS OR FAMILY TO ASSIST WITH HER CARE AT HOME BUT IS NOT GOING TO A PRISON. PT THINKS SHE WILL NEED AN AMBULANCE FOR TRANSPORT HOME HER ELECTRIC WHEELCHAIR IS THERE. CM EXPLAINED TO PT THAT SHE WILL NEED TO DEMONSTRATE WITH THERAPY THE ABILITY TO TRANSFER AND SIT IN CHAIR FOR DISCHARGE. PT STATED UNDRESTANDING. CHOICE FOR [facility] SIGNED. 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 PT REFUSED NURSING FACILITY PLACEMENT. PT WILL NEED TO DEMONSTRATE ABILITY TO TRANSFER AND SIT IN CHAIR FOR DISCHARGE SHE HAS ELECTRIC WHEELCHAIR AT HOME. CM TO ARRANGE HOME HEALTH RESUMPTION WITH [facility] VISITING [facility] [place] IN [place] FOR DISCHARGE HOME. CM TO CONTINUE TO FOLLOW AND ASSIST NEEDED. Sandor Butt, CASE MANAGEMENT DCP- Discharge Planning Updated by [id number]: Aleisha Monroe on 05/19/19 7:[address] Patient Name: TROY HAYWOOD Admission Status: ER Accout number: [id number] Admission Date: 05-14-2019 : 1955 Admission Diagnosis: Attending: FABIO PINEDA Current LOS: 5 Anticipated DC Date: Planned Disposition: Home or Self Care Primary Insurance: MEDICAID [place] Discharge Planning Comments: CM met with patient and daughter to complete initial dc planning assessment. Patient recently extubated earlier today. CM educated patient on the CM role and verbal consent given by patient to complete assessment. Patient lives at home with her two young grand-daughters where she is independent with her care. At discharge patient plans to return home and feels this is a safe discharge. CM discussed availability of home health, rehab services, and medical equipment. Patient has Home 02 and HH with unknown providers. CM will f/u with patient @ later date to see if she is able to give providers. Patient denied known discharge needs at this time. CM will continue to follow and will assist as needed with dc plans/needs. Medical Operations Supervisor: Aleisha Mabel DCPIA - Discharge Planning Initial Assessment Updated by NAYLA: Sandor Butt on 05/28/19 9:36 am * How many steps to enter\\exit or inside your home? * PCP uncertain ? * Pharmacy [facility] * Preadmission Environment Home with Family * ADLs Independent * Other Equipment HOME 02, WALKER, SCOOTER, BSC, SC * List name and contact numbers for known caregivers / representatives who currently or will assist patient after discharge: CHEPE SUN - DAUGHTER- [phone] HOUSTON SALGADO, DTR - [phone] * Verbal permission to speak to the caregivers and representatives has been obtained from the patient. Yes * Community resources currently utilized Home Health * Please name any agencies selected above. [facility] * Additional services required to return to the preadmission environment? No * Can the patient safely return to the preadmission environment? Yes * Has this patient been hospitalized within the prior 30 days at any hospital? No Coverage Notice Reviewer: NAYLA Butt Notice Issued Date-Time: 05/25/2019 14:05 Notice Type: Patient Choice Letter Notice Delivered To: Patient Relationship to Patient: Certified Master Locksmith Name: Delivery Method: HAND - Hand Delivered Marry Days: Prior Verbal Notification: Recipient Understood Notice: Yes Recipient Signature: Yes Med Rec Note Co-signed by Attending: Coverage Notice Comment: [facility]- VISITING [facility] ([facility]) Reviewer: [id number] Butt Notice Issued Date-Time: 05/31/2019 14:50 Notice Type: Patient Choice Letter Notice Delivered To: Patient Relationship to Patient: Certified Master Locksmith Name: Delivery Method: HAND - Hand Delivered Marry Days: Prior Verbal Notification: Recipient Understood Notice: Yes Recipient Signature: Yes Med Rec Note Co-signed by Attending: Coverage Notice Comment: [facility] Reviewer: [email or web address] Butt Notice Issued Date-Time: 06/09/2019 9:55 Notice Type: Patient Choice Letter Notice Delivered To: Patient Relationship to Patient: Certified Master Locksmith Name: Delivery Method: HAND - Hand Delivered Marry Days: Prior Verbal Notification: Recipient Understood Notice: Yes Recipient Signature: Yes Med Rec Note Co-signed by Attending: Coverage Notice Comment: [facility]EPTING [facility] Reviewer: [id number] Josef Butt Notice Issued Date-Time: 06/10/2019 16:25 Notice Type: Patient Choice Letter Notice Delivered To: Patient Relationship to Patient: Certified Master Locksmith Name: Delivery Method: HAND - Hand Delivered Marry Days: Prior Verbal Notification: Recipient Understood Notice: Yes Recipient Signature: Yes Med Rec Note Co-signed by Attending: Coverage Notice Comment: MASTER Piña DP export: 06/10/19 3:41 Patient Name: TROY HAYWOOD Page [id number] at 1635 All edits/amendments must be made on the electronic document DICTATION DATE: 06/11/191633 METAL SANDER: MISHEL 06/11/191633 RPT#: [id number] DC DATE: STATUS: ADM IN [facility] [address] [place] [address] END OF REPORT
[2019-06-11 18:05] VITALS: BP 125/50
--- NOTE | 2019-06-11 18:15 | NUR ---
PT PLACED ON BEDPAN X2 PERSON ASSIST AND PT HAD A BM.
--- NOTE | 2019-06-11 19:15 | NUR ---
RECEIVED REPORT, WILL ASSUME CARE OF PT, DENIES ANY NEEDS, BED IS LOW, SRX2, CALL LIGHT IN REACH, WILL CONTINUE PLAN OF CARE
--- NOTE | 2019-06-11 19:53 | NUR ---
OT NOTE: PT COMPLETED BED MOB SUPINE TO SIT WITH MOD A. PT COMPLETED EOB SITTING WITH SBA. PT COMPLETED SIT TO STAND WITH MOD A. PT REQUIRED TOTAL A WITH LB HYGIENE TASKS. PTS DAUGHTER STATED THAT MEDICAL DOCTORS/NURSES WERE "BLOWING OFF" HER CONCERNS. GARRISON COUNTED NO LESS THAN 2 NURSES ENTERING ROOM TO ADDRESS CONCERNS AND 1 GLASS BLOCK INSTALLER. THANK YOU, BLADIMIR MANCERA
[2019-06-11 20:00] VITALS: BP 119/52
[2019-06-12] VITALS (7 sets, daily range): BP systolic 103–125; BP diastolic 50–55
--- NOTE | 2019-06-12 04:00 | NUR ---
I have reviewed this patient and I concur with the Shift Assessment completed by the Licensed Practical Nurse today this shift.
--- NOTE | 2019-06-12 07:35 | NUR ---
PATIENT IS SITTING UP IN BED. SHE IS ALERT AND AWAKE. DENIES ANY NEEDS AT THIS TIME. SHE IS WAITING ON PLACEMENT STILL.
--- NOTE | 2019-06-12 09:46 | NUR ---
PATIENT IS ASKING FOR A BREATHING TREATMENT. CALLED AND NOTIFIED RESPIRITORY.
--- NOTE | 2019-06-12 11:14 | NUR ---
PATIENT IS ON THE BEDPAN AT THIS TIME. ALL HER FOLDS HAVE BEEN WIPED AND CLEANED. OINTMENT APPLIED. APPLYING A STAT LOCK AGAIN TO HER LEG SO HER BALLARD DOES NOT PULL OUT.
[2019-06-13] VITALS: BP 107/50
[2019-06-13 04:00] VITALS: BP 112/56
[2019-06-13 04:24] LABS: BASOPHILS 0.5 % (0-2); EOSINOPHILS 15.9 % (0-7); HEMATOCRIT 30.7 % (36.0-48.0); HEMOGLOBIN 9.2 g/dL (12-16); IMMATURE GRANULOCYTES 0.2 % (0-5); LYMPHOCYTES 25.7 % (15-50); MCH 27.7 pg (26.0-34.0); MCV 92.5 fL (80.0-100.0); MEAN PLATELET VOLUME 9.9 fL (7.4-10.4); MONOCYTES 17.1 % (2-11); NEUTROPHILS 40.6 % (40-80); PLATELET COUNT 290 10x3/uL (130-400); RBC 3.32 10x6/uL (4.00-5.40); RDW 17.8 % (11.5-14.5); WBC 4.2 10x3/uL (4.8-10.8)
[2019-06-13 04:36] LABS: ANION GAP 6.8 mmol/L (8-16); CALCIUM 8.3 mg/dL (8.5-10.1); CARBON DIOXIDE 35.4 mmol/L (21.0-32.0); CREATININE - SERUM 1.4 mg/dL (0.6-1.3)
[2019-06-13 04:45] LABS: POTASSIUM - SERUM 3.2 mmol/L (3.5-5.1)
[2019-06-13 09:00] VITALS: BP 104/52
[2019-06-13 12:00] VITALS: BP 103/50
--- NOTE | 2019-06-13 16:54 | NUR ---
REVIEWED ASSESSMENT COMPLETED BY [employer] SALES AGENT AND I CONCUR.
[2019-06-13 18:11] VITALS: BP 111/54
--- NOTE | 2019-06-13 19:30 | NUR ---
ASSISTED WITH NEEDS REMAINS ON SPEACAIL BED LOW AND LOCKED FAMILY WITH PT CALL LIGHT IS IN REACH
[2019-06-13 20:00] VITALS: BP 141/54
[2019-06-14] VITALS: BP 107/56
[2019-06-14 04:00] VITALS: BP 105/48
--- NOTE | 2019-06-14 04:02 | NUR ---
I have reviewed this patient and I concur with the Shift Assessment completed by the Licensed Practical Nurse today this shift.
--- NOTE | 2019-06-14 07:54 | NUR ---
REPORT RECIEVED. RR EVEN AND UNLABORED ON 3L NC. SHE HAS A R IJ INFUSING VANC AT THIS TIME. REPOSITION PT AT THIS TIME. BED LOCKED AND IN LOWEST POSITION, CALL LIGHT WITHIN REACH. WILL CTM
--- NOTE | 2019-06-14 09:14 | NUR ---
REPOSITION PT. ATTEMEPTED TO PUT ON SCDS BUT PT STATES SHE ONLY WANTS TO WEAR THEM AT NIGHT. WILL CTM
[2019-06-14 11:13] VITALS: BP 119/70
--- NOTE | 2019-06-14 12:20 | NUR ---
OT NOTE: CONT TO WORK WITH PT ON STRENGTHENING, BED MOB, ADLS, AND SIT TO STAND/STANDING TOLERANCE. PERFORMED BED MOB INCLUDING SUPINE TO SIT WITH MIN/MOD ASSIST FOR COMING TO SITTING POSITION. INDEP WITH EOB SITTING. SIT TO STAND WITH MIN/MOD ASSIST AND WALKER. EDUCATED PT ON IMPORTANCE OF UPRIGHT STANDING VS FLEXED POSITION. PT ABLE TO STAND UPRIGHT WITH WALKER FOR ONLY A FEW SECONDS, THEN FLEXES AT HIPS AND LEANS ON THE FRONT OF WALKER. BY DOING THIS, PT IS UNABLE TO LIFT HER FEET TO PROGRESS WITH STEPS. PT TOLERATING STANDING FOR 1-1.5 MIN BUT LES ARE UNSATABLE FOR TRANSFERS. PRACTICED BED MOB BACK TO BED. PRACTICED USING TRAPEZE TO SCOOT UP IN BED. EDUCATED ON UE/LE EXS WHILE IN BED. SIMPLE GROOMING AND FEEDING WITH SET UP..PT REMAINS UNABLE TO PERFORM TOILET HYGIENE OR PERINEAL CARE. REMAINS INCONT OF BOWEL; BALLARD CATH IN PLACE. SAÚL ESCAMILLA, OTR/L
[2019-06-14 14:57] VITALS: BP 118/49
[2019-06-14 17:33] VITALS: BP 101/48
--- NOTE | 2019-06-14 17:58 | NUR ---
OT NOTE: PT COMPLETED BED MOB SUPINE TO SIT WITH CGA. PT COMPLETED SIT TO STAND WITH MOD A. PT COMPLETED LB HYGIENE TASKS WITH TOTAL A. YIN VÁZQUEZ COTA
--- NOTE | 2019-06-14 18:23 | NUR ---
I have reviewed this patient and I concur with the Shift Assessment completed by the Licensed Practical Nurse today this shift.
[2019-06-14 18:45] LABS: BASOPHILS 0.4 % (0-2); EOSINOPHILS 12.7 % (0-7); HEMATOCRIT 32.1 % (36.0-48.0); HEMOGLOBIN 9.4 g/dL (12-16); IMMATURE GRANULOCYTES 0.2 % (0-5); LYMPHOCYTES 22.3 % (15-50); MCH 27.3 pg (26.0-34.0); MCHC 29.3 g/dL (31.0-37.0); MCV 93.3 fL (80.0-100.0); MEAN PLATELET VOLUME 9.9 fL (7.4-10.4); MONOCYTES 16.2 % (2-11); NEUTROPHILS 48.2 % (40-80); PLATELET COUNT 262 10x3/uL (130-400); RBC 3.44 10x6/uL (4.00-5.40); RDW 17.9 % (11.5-14.5); WBC 4.9 10x3/uL (4.8-10.8)
[2019-06-14 19:01] LABS: CALCIUM 7.9 mg/dL (8.5-10.1); CARBON DIOXIDE 36.6 mmol/L (21.0-32.0); CREATININE - SERUM 1.4 mg/dL (0.6-1.3); POTASSIUM - SERUM 3.6 mmol/L (3.5-5.1)
--- NOTE | 2019-06-14 19:10 | NUR ---
ALERT AND DENIES NEEDS BED AND CALL LIGHT IN PROPER POSITION REQUESTRS ROBBIN FERRELL MD NOTIFIED
[2019-06-14 20:34] VITALS: BP 113/47
[2019-06-15 01:10] VITALS: BP 117/53
[2019-06-15 05:58] VITALS: BP 126/62
--- NOTE | 2019-06-15 05:59 | NUR ---
I have reviewed this patient and I concur with the Shift Assessment completed by the Licensed Practical Nurse today this shift.
--- NOTE | 2019-06-15 07:43 | NUR ---
REPORT RECEIVED. WILL CONTINUE WITH POC. ASSISTED PT WITH PULLING UP IN BED. PT IS AAO AND BEDFAST. LYING SEMI FOWLERS. CALL LIGHT W/I REACH. FAMILY AT BEDSIDE. RR EVEN AND UNLABORED ON 3L 02. R.IJ CVL SALINE LOCKED. BALLARD IN PLACE AND DRAINING URINE. PT DENIES ANY NEEDS. WILL CTM.
--- NOTE | 2019-06-15 09:06 | MORECARE ---
CASE MANAGEMENT DISCHARGE SUMMARY PATIENT: TROY HAYWOOD UNIT: [id number] ADM DATE: 05/14/19 AGE: 64 : [birth year] SEX: F ROOM/BED: D.2140 AUTHOR: DAYDAY,DOC PHYSICIAN: REFERRING PHYSICIAN: FABIO PINEDA MD DATE OF SERVICE: 06/15/19 Discharge Plan Patient Name: TROY HAYWOOD Facility: [facility]:[place] : 1955 Planned Disposition: Nursing Facility YUN Cert Anticipated Discharge Date: 06/11/19 Discharge Date: Expected LOS: 28 Initial Reviewer: [id number] Initial Review Date: 05/19/2019 Generated: 06/15/19 10:06 am Comments DCP- Discharge Planning Updated by [id number]: Sandor Butt on 06/11/19 3:[address] Patient Name: TROY HAYWOOD Encounter No: [id number] : 1955 Primary Insurance: MEDICAID [place] Anticipated DC Date: 06-11-2019 Planned Disposition: Nursing Facility YUN Cert External Planned Provider: : DCP follow-up note: CM RECEIVED MESSAGE FROM TROY OF [facility], THEY WILL NOT ACCEPT PT. CM FAXED REFERRAL UDPATE TO [facility] AT [phone]. CM FAXED UPDATE TO [facility] AT [phone]. CHAR INFORMED CM THAT SHE ANTICIPATES A BERIATRIC LONG-TERM BED OPENING "SOON". CM NOTIFIED PT AND DAUGHTER OF PROGRESS / LACK THEREOF IN ROOM. - CM WAITING ADMISSION DETERMINATION FROM [facility] FOR GROUP HOME CARE PLACEMENT IN ONE OF HER AFFILIATED NURSING HOMES. - CM WAITING RETURN CALL FROM [facility] IN [place] REGARDING [facility]Y REHAB. Sandor Butt CASE MANAGEMENT DCP- Discharge Planning Updated by [id number]: Sandor Butt on 06/10/19 3:[address] Patient Name: TROY HAYWOOD Encounter No: [id number] : 1955 Primary Insurance: MEDICAID [place] Anticipated DC Date: 06-11-2019 Planned Disposition: Nursing Facility YUN Cert External Planned Provider: FIRST ACCEPTING FACILITY DCP follow-up note: - CM RECEIVED CALL FROM [facility], THEY HAVE NOT AVAILABILITY FOR TREY REHAB BED. CM RECEIVED CALL FROM MITCH OF [facility] IN [facility], THEY HAVE NOT RECEIVED TREY APPLICATION AND HAVE NO CURRENT BEDS BUT WOULD CONSIDER PT. CM RETURNED CALL TO MITCH AT [facility], , INFORMED THAT TREY APPLICATION HAD BEEN FAXED TO [facility], TELEPHONE CONTACT [phone]. HETAL ASKED FOR REFERRAL TO BE SENT AND HE WILL SCREEN FOR ADMISSION. CM FAXED REFERRAL TO [facility] AT [phone]. CM NOTIFIED PT AND DAUGHTER OF PROGRESS IN ROOM. PT AND DAUGHTER ASKED FOR CM TO SEND REFERRAL TO [facility] IN [place]. CHOICE SIGNED. CM FAXED REFERRAL TO [facility] AT [phone]. - CM WAITING ADMISSION DETERMINATION FROM [facility] FOR [facility]ARE PLACEMENT IN ONE OF HER AFFILIATED NURSING HOMES. - CM WAITING RETURN CALL FROM [facility] IN [place] REGARDING [facility] REHAB. - CM WAITING ADMISSION DETERMINATION FROM [facility]. Sandor Butt, CASE MANAGEMENT DCP- Discharge Planning Updated by [id number]: Sandor Butt on 06/09/19 3:[address] Patient Name: TROY HAYWOOD Encounter No: [id number] : 1955 Primary Insurance: MEDICAID [place] Anticipated DC Date: 06-10-2019 Planned Disposition: Nursing Facility [facility] External Planned Provider: FIRST ACCEPTING FACILITY DCP follow-up note: CM SPOKE TO PT AND DAUGHTER, CHEPE, THEY WILL LET CM SEEK LONG-TERM PLACEMENT FOR THEM TO CONSIDER BUT STILL DO NOT WANT [facility] IF THEY CAN OBTAIN REHAB THROUGH THE [facility]. DAUGHTER ADVISED SHE HAS CONFIRMED RECEIPT OF THE APPLICATION FAXED TO THE [facility] AND IS IN PROCESS OF REVIEW. DAUGHTER ASKED CM TO CHECK INTO REHAB'S THAT MAY HAVE [facility] AFFILIATION. CM CALLED [facility], , REQUESTED ASSISTANCE IN ENTERPRISE RECORDS ANALYST CARE PLACEMENT WITH INTENT TO RETURN HOME. CHAR STATES THAT SHE MAY HAVE HOME'S WILL ACCEPT BARIATRIC PATIENT AND WILL ATTEMPT PLACEMENT. CHAR WILL MEET WITH PT LATER TODAY. CM FAXED REFERRAL TO [facility] AT [phone]. CM SPOKE TO TROY MIMS OF [facility], TROY INFORMED CM THAT SHE HAS NO HOMES IN HER GROUP THAT MAY ASSIST WITH PLACEMENT. CM CALLED [facility] [place], WAS ADVISED BY [facility] THAT THEY WILL NOT CONSIDER FOR TREY CARE, THEY ARE NOT AFFILIATED WITH [facility]. CM CALLED [facility], , SPOKE TO CHELO WHO INFORMED CM THAT THEY ARE NOT AFFILIATED WITH [facility] BUT WILL CONSIDER PT FOR TREY REHAB. CM FAXED REFERRAL TO [facility] AT [phone]. CM CALLED [facility] IN [place], , SPOKE TO DHEERAJ WHO REPORTS THEY HAVE NO OPEN REHAB BEDS AND HAVE NO PROJECTED DISCHARGES SOON. THEY DO NOT HAVE WEIGHT LIMITS. DHEERAJ DID NOT WANT REFERRAL FAXED, SHE WILL REPORT TO BREN WHO WILL CHECK WITH THE [facility] REGARDING APPLICATION STATUS AND CALL CM TOMORROW, 06-10-19. CM NOTIFIED PT IN ROOM OF PROGRESS. PT STATES SHE MAY BE ABLE TO TRANSFER SELF AND GO HOME BEFORE CM FINDS REHAB FOR HER. - CM WAITING ADMISSION DETERMINATION FROM [facility] FOR [facility] A[facility]LY[facility]ARE PLACEMENT IN ONE OF HER AFFILIATED NURSING HOMES. - CM WAITING ADMISSION DETERMINATION FROM [facility] FOR TREY REHAB BED. - CM WAITING RETURN CALL FROM [facility] IN [place] REGARDING [facility] REHAB. Sandor Butt, CASE MANAGEMENT DCP- Discharge Planning Updated by [id number]: Sandor Butt on 06/04/19 4:[address] Patient Name: TROY HAYWOOD Encounter No: [id number] : 1955 Primary Insurance: MEDICAID [place] Anticipated DC Date: 06-02-2019 Planned Disposition: Nursing Facility YUN Cert External Planned Provider: TO BE DETERMINED DCP follow-up note: CM SPOKE TO PT AND DAUGHTER CHEPE, IN ROOM. PT IS AND FOR PAST 10 YEARS, BUT NOT LEGALLY. THEY CANNOT QUALIFY FOR MEDICAID FOR [facility]LYST CARE DUE TO NOT HAVING SPOUSE FINANICAL INFORMATION. PT AND DAUGHTER BOTH STATE THAT THEY DO NOT WANT TO PUT PT INTO GROUP HOME LONG-TERM CARE WHERE SHE WILL JUST LAY IN THE BED. THEY DO NOT WANT FURTHER LONG-TERM REFERRALS FAXED OUT. CM DISCUSSED THAT PT IS STABLE FOR DISCHARGE MEDICALLY. PT'S DAUGHTER REPORTS PT IS NOT HAVING BOWEL MOVEMENTS AND THAT THE FECES COMING OUT IS COMING AROUND AN IMPACTION AND NO ONE IS ADDRESSING THIS. CM NOTIFIED TOBY THOMAS WHO PROVIDED ORDERS FOR MEDICATION TO TREAT CONDITION. BEDSIDE NURSE NOTIFIED. PT'S DAUGHTER PROVIDED CM WITH 77 PAGES AND ASKED CM TO [facility]X TO [facility] FOR FINANCIAL ASSISTANCE REGARDING REHAB SERVICES FOR PT. CM FAXED TO [facility] AT [phone]. PT'S DAUGHTER ADVISED THAT IF APPROVED, PT WILL HAVE TO GO TO A [facility] FOR REHAB. PT WAS DECLINED ENTERPR[facility] RECORDS ANALYST CARE PLACEMENT AT [facility]; PT AND FAMILY DECLINE TO HAVE FURTHER REFERRALS SENT OUT. FAMILY IS TRYING TO SECURE FINANCIAL ASSISTANCE FOR REHAB SERVICES [facility]OUGH [facility]. CM TO CONTINUE TO FOLLOW AND ASSIST. Sandor Butt, CASE MANAGEMENT DCP- Discharge Planning Updated by [id number]: Sandor Butt on 06/04/19 11:[address] Patient Name: TROY HAYWOOD Encounter No: [id number] : 1955 Primary Insurance: MEDICAID [facility] DC Date: 06-02-2019 Planned Disposition: Nursing Facility [facility] External Planned Provider: WAITING FAMILY DECISION DCP follow-up note: CM RECEIVED CALL FROM [facility] WHO ADVISED CM THAT PT HAS BEEN FIANCIALLY DENIED FOR PLACEMENT. CM SPOKE TO PT IN ROOM WHO ADVISED THAT SHE UNDERSTOOD THEY WERE JUST GOING TO LEAVE HER LAYING IN BED FOR A MONTH AND NOT GIVE HER ANY REHAB SERVICES. CM EXPLAINED THAT MEDICAID DOES NOT PAY FOR REHAB SERVICES, ONLY [facility]LY[facility] CARE AND PT WOULD RECEIVE WHAT THEY CALL "RESTORATIVE CARE" FROM STAFF AT ANY LONG-TERM, NOT THERAPY SERVICES. PT STATES SHE IS NOW ABLE TO STAND UP WITH THERAPY HERE. CM EXPLAINED THAT PT IS GETTING 8 TO 16 MINUTES OF THERAPY PER DAY AND THAT ALTHOUGH CM WAS HAPPY WITH PROGRESSION, PT IS MEDICALLY STABLE TO LEAVE THE HOSPITAL AND THAT SHE WOULD RECEIVE MORE THERAPY AT HOME WITH HOME HEALTH THAN IN THIS ACUTE HOSPITAL SETTING. PT STATES SHE IS NOT SURE WHAT HAPPENED, THAT CHEPE IS TAKING CARE OF THIS FOR HER AND THAT CHEPE WILL BE TO THE HOSPITAL IN A LITTLE WHILE TO SPEAK TO CM; PT BELIVES THAT CHEPE IS AGAIN WORKING ON TRYING TO GET TREY REHAB CARE THROUGH THE [employer] [facility]. PT HAS BEEN FINANCIALLY DECLINED FOR GROUP HOME CARE PLACEMENT BY [facility]. PT DEFERRING PLANNING TO HER DAUGHTER, CHEPE. CM WAITING FAMILY TO ARRIVE TO DISCUSS FURTHER DISCHARGE PLANNING. ROSANNA Monroe DCP- Discharge Planning Updated by [id number]: Sandor Butt on 06/03/19 7:[address] Patient Name: TROY HAYWOOD Encounter No: [id number] : 1955 Primary Insurance: MEDICAID [place] Anticipated DC Date: 06-02-2019 Planned Disposition: Nursing Facility YUN Cert External Planned Provider: [facility] MEDICAID BED DISCHARGE PLANNING NOTE: CM FAXED REFERRAL UPDATE TO [facility] AT [phone]. CM WAITING ADMISSION DETERMINATION FROM [facility] FOR GROUP HOME CARE. WAITING FAMILY TO PROVIDE FINANCIAL INFORMATION FOR GROUP HOME CARE MEDICAID APPLICATION TO FACILITY. ROSANNA Monroe DCP- Discharge Planning Updated by [id number]: Sandor Butt on 06/02/19 3:[address] Patient Name: TROY HAYWOOD Encounter No: [id number] : 1955 Primary Insurance: MEDICAID [place] Anticipated DC Date: 06-02-2019 Planned Disposition: Nursing Facility [facility] Cert External Planned Provider: [facility] MEDICAID BED DCP follow-up note: CM FAXED REFERRAL UPDATE TO [facility] AT [phone]. CM WAITING ADMISSION DETERMINATION FROM [facility] FOR [facility] RECOR[facility] A[facility]LYST CARE. Sandor Butt CASE MANAGEMENT Appended by Sandor Butt on 06/02/2019 16:50 MANAGER MAIL: CM RECEIVED CALL FROM LUIS OF [facility], , THEY RECEIVED THE UPDATE BY FAX AND WILL CONTACT FAMILY REGARDING FINANCIALS. LUIS REPORTS THEY ARE STILL WAITING ON NURSING TO ACCEPT FOR GROUP HOME CARE AND WILL ALSO NEED FINANCIAL CLEARANCE TO ENTER THE FACILITY. CM WAITING ADMISSION DETERMINATION FROM [facility] FOR [facility] REC[facility]ST CARE. [facility] CONTACTING FAMILY TO ASSIST WITH FINANCIAL INFORMATION FOR GROUP HOME CARE MEDICAID APPLICATION. Sandor Inchelium, CASE MANAGEMENT DCP- Discharge Planning Updated by [id number]: Sandor Butt on 06/01/19 4:[address] Patient Name: TROY HAYWOOD Encounter No: [id number] : 1955 Primary Insurance: MEDICAID [place] Anticipated DC Date: 06-02-2019 Planned Disposition: Nursing Facility YUN Cert External Planned Provider: [facility], GROUP HOME CARE MEDICAID BED DCP follow-up note: CM MET WITH PT AND DAUGHTER HOUSTON, WHO HAS MADE IT FROM [employer]. UPDATE PROVIDED. CM CALLED [facility], DALE INFORMED CM THAT REFERRAL FROM CM AND [facility] WAS RECEIVED, STAFF IN MEETING TODAY AND THEY WILL FINISH ADMISSION REVIEW TOMORROW, 06-02-19. CM NOTIFIED PT AND DAUGHTER IN ROOM. CM WAITING ADMISSION DETERMINATION FROM [facility] FOR GROUP HOME CARE. Sandor Butt CASE MANAGEMENT DCP- Discharge Planning Updated by [id number]: Sandor Butt on 05/31/19 3:[address] Patient Name: TROY HAYWOOD Encounter No: [id number] : 1955 Primary Insurance: MEDICAID [place] Anticipated DC Date: 06-01-2019 Planned Disposition: Nursing Facility [facility]UN Cert External Planned Provider: [facility], [facility] MEDICAID BED DCP follow-up note: AFTER SEVERAL VISITS WITH PT IN ROOM, PHONE CALLS WITH DAUGHTERS, [facility], PT DECIDED TO CONSENT TO 30 DAYS OF EN[facility] CARE AT [facility] AFTER PT'S DAUGTHERS, WITH AIDE OF [facility], LOC[facility] WHO WILL CONSIDER PT FOR CARE. PT SIGNED CHOICE. CM FAXED REFERRAL INFORMATION TO [facility] AT [phone]. CM WAITING ADMISSION DETERMINATION FROM [facility] FOR [facility] C[facility]. Sandor Butt CASE MANAGEMENT DCP- Discharge Planning Updated by [id number]: Sandor Butt on 05/28/19 3:[address] Patient Name: TROY HAYWOOD Encounter No: [id number] : 1955 Primary Insurance: MEDICAID [place] Anticipated DC Date: 06-02-2019 Planned Disposition: Home with Home Health External Planned Provider: [employer] [facility] DCP follow-up note: CM RECEIVED CALL FROM PT'S DAUGHTER, CHEPE, WHO VERIFIED THAT SHE WILL COME NEXT WEEK TO STAY WITH PT FOR TWO OR THREE WEEKS TO CARE FOR PT AT HOME. CHEPE WILL DISCUSS WITH HER MOTHER THAT SHE WILL HAVE TO BE ABLE TO STAND AND TRANSFER FOR CHEPE TO CARE FOR HER. CM REVIEWED THERAPY NOTES TO PRESENT. 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 PT HAS BEDSIDE COMMODE AND WHEELCHAIR AT HOME. CHEPE REPORTS NEED OF [facility] RESUMPTION. CHEPE WILL DISCUSS WITH PT AND TRY TO MOTIVATE HER TO MEET THERAPY GOALS PRIOR TO ARRIVAL ON NEXT FRIDAY OR FRIDAY. PT'S DAUGHTER PLANS TO TAKE PT HOME NEXT FRIDAY OR FRIDAY, THEY WILL NEED [facility] RESUMPTION, DENIES FURTHER NEEDS. CM TO FOLLOW AND ASSIST NEEDED. Sandor Butt, CASE MANAGEMENT DCP- Discharge Planning Updated by [id number]: Sandor Butt on 05/28/19 2:[address] Patient Name: TROY HAYWOOD Encounter No: [id number] : 1955 Primary Insurance: MEDICAID [place] Anticipated DC Date: Planned Disposition: Nursing Facility [facility] Cert External Planned Provider: TO BE DETERMINED DCP follow-up note: CM SPOKE TO [facility], SHE INFORMED CM THAT UPDATES HAVE BEEN RECEIVED, PT IS NOT MAKING ENOUGH PROGRESS WITH THERAPY THAT THEY DO NOT BELIEVE THAT PT WILL BE ABLE TO ACHIEVE THERAPY GOALS IN THE REMAINING 10 DAYS OF ACUTE DAYS THAT PT HAS REMAINING. CM NOTIFIED PT AND PROVIDED PT WITH NURSING FACILITY LISTING OF ALL AVAILABLE FACILITIES WITHIN [address] OF [place]. PT WILL SPEAK TO HER DAUGHTER AND NOTIFY CM OF HER CHOICES. CM CALLED [facility], , TWICE; AUTOMATED MESSAGE INFORMED CM THAT THE NUMBER WAS RESTRICTED OR CURRENTLY UNAVAILABLE. CM WAITING PT AND FAMILY TO PROVIDE NURSING FACILITY CHOICES FOR GROUP HOME CARE. Sandor Butt, CASE MANAGEMENT Appended by Sandor Butt on 05/28/2019 12:07 CDT: CM SPOKE TO PT IN ROOM, NOTIFIED PT THAT CM TRIED AND COULD NOT REACH DAUGHTER HOUSTON VIA PHONE. PT REPORTS SHE SPOKE TO HOUSTON WHO TOLD HER THAT [facility] WILL NOT TAKE HER DUE TO WEIGHT; PT'S DAUGHTER TOLD PT THAT [facility] WILL NOT TAKE HER. PT REPORTS THERE IS ONE IN [place] THAT MIGHT CONSIDER HER. CM OFFERED CHOICE FORM FOR SIGNATURE SO THAT CM COULD SEND REFERRALS AND BEGIN CALLING TO FIND PLACEMENT. PT REFUSED AND STATES SHE HAS A DAUGHTER, CHEPE, WHO IS A REGISTERED NURSE, THAT MAY BE COMING TO TAKE CARE OF PT AT HOME. PT'S DAUGHTER HOUSTON IS CALLING DAUGHTER CHEPE TO DISCUSS THE OPTION. PT STATES SHE WILL LET CM KNOW THE OUTCOME AND IF SHE WANTS CM TO EXPLORE LONG-TERM CARE FOR HER. CM WAITING PT AND FAMILY TO PROVIDE NURSING FACILITY CHOICES AND FOR PT TO SIGN CONSENT FOR LONG-TERM PLACEMENT. PT IS NOW HOPEFUL THAT HER DAUGHTER WHO IS A REGISTERED NURSE WILL COME AND STAY WITH PT AND TAKE CARE OF HER AT HOME. SANDOR BUTT, CASE MANAGEMENT Appended by Sandor Butt on 05/28/2019 14:27 CDT: CM RECEIVED MESSAGE THAT PT WANTS TO SEE CM. CM MET WITH PT IN ROOM WHO INFORMED CM THAT SHE HIS NOT GOING TO A LONG-TERM, THAT HER DAUGHTER, CHEPE, WHO IS A NURSE, WILL BE HERE NEXT FRIDAY TO TAKE HER HOME AND WILL TAKE CARE OF PT AT HOME. PT ASKED FOR [facility] RESUMPTION. CM DISCUSSED POSSIBLE NEED OF DEBORAH LIFT AND ASKED ABOUT ADDITIONAL EQUIPMENT. PT THINKS BY NEXT WEEK, SHE WILL BE ABLE TO TRANSFER WITHOUT AIDE OF LIFT DEVICE. CM NOTIFIED DR. FREEDMAN WHO INFORMED CM THAT HE WILL ORDER BLOOD GAS ON FRIDAY TO DETERMINE RESPIRATORY DISCHARGE NEEDS AT THAT TIME. PT HAS SIGNED RIGHT OF CHOICE FOR [facility] ALREADY. PT REPORTS HER DAUGHTER, WHO IS A REGISTERED NURSE, WILL BE HERE FRIDAY OF NEXT WEEK TO TAKE CARE OF PT AT HOME. PT PLANS TO DISCHARGE HOME WITH FAMILY AND [facility]. CM TO FOLLOW AND ASSIST NEEDED. SANDOR BUTT, CASE MANAGEMENT DCP- Discharge Planning Updated by [id number]: Sandor Butt on 05/28/19 7:[address] Patient Name: TROY HAYWOOD Encounter No: [id number] : 1955 Primary Insurance: MEDICAID [facility] DC Date: Planned Disposition: Inpatient Rehab External Planned Provider: [facility] DCP follow-up note: CM FAXED REFERRAL UPDATE TO [facility] AT [phone]. CM WAITING ADMISSION DETERMINATION FROM [facility] IN [place]. Sandor Butt, CASE MANAGEMENT DCP- Discharge Planning Updated by [id number]: Sandor Butt on 05/27/19 2:[address] Patient Name: TROY HAYWOOD Encounter No: [id number] : 1955 Primary Insurance: MED[place]ID [place] Anticipated DC Date: Planned Disposition: Inpatient Rehab External Planned Provider: [facility] DCP follow-up note: CM FAXED REFERRAL UPDATE TO [facility] AT [phone]. CM WAITING ADMISSION DETERMINATION FROM [facility] IN [place]. Sandor Butt, CASE MANAGEMENT Appended by Sandor Butt on 05/27/2019 14:41 CDT: CM CALLED [facility], , LEFT MESSAGE ASKING FOR UPDATE ON REFERRAL AND TO KNOW IF THEY ARE STILL CONSIDERING PT FOR REHAB. CM WAITING ADMISSION DETERMINATION FROM [facility] IN [place]. Sandor Butt, CASE MANAGEMENT DCP- Discharge Planning Updated by [id number]: Jesica Cartagena on 05/26/19 4:[address] Patient requested Trapeze bar to allow her to sit up in hospital bed. CM spoke Dr. Lawson and obtained approval for Trapeze bar. CM notified Radha in materials management of request for Trapeze bar. CM completed and gave Radha the order form for the Trapeze bar. Trapeze bar will be delivered. CM notified patient's CM, Christiano Butt, on status of Trapeze bar. DCP- Discharge Planning Updated by [id number]: Sandor Butt on 05/26/19 3:[address] Patient Name: TROY HAYWOOD Encounter No: [id number] : 1955 Primary Insurance: MEDICAID [place] Anticipated DC Date: Planned Disposition: Inpatient Rehab External Planned Provider: [facility] DCP follow-up note: CM SPOKE TO PT'S DAUGHTER VIA PHONE, HOUSTON NAOMI, . CM OBTAINED PERMISSION FROM PT TO DISCUSS CARE, TREATMENT AND DISCHARGE PLANNING WITH [facility]. CONRAD INFORMED CM THAT PT WAS IN REHAB AT [facility] LAST YEAR AND THEY WANT [facility]. CM DISCUSSED PT'S VERY LOW LEVEL OF PHYSICAL CONDITIONING. PT'S DAUGHTER FEELS THAT PT CAN PARTICIPATE WITH THERAPY WITH GOAL TO RETURN HOME PREVIOUS WITH ABILITY TO TRANSFER TO E[facility]OTER AND HOME HEALTH FOR CONTINUED HOME SERVICES. HOUSTON VERIFIED THAT PT HAS NO ADULTS ABLE TO LIVE WITH AND ASSIST PT AT HOME AT THIS TIME. HOUSTON ASKED ABOUT [facility] THAT MAY TAKE PT AT NO COSTS DUE TO INCOME. CM INFORMED HOUSTON THAT CM WAS NOT FAMILIAR WITH ANY OF THESE PROGRAMS. HOUSTON WOULD LIKE TO HAVE PT EVALUATED FOR REHAB AT [facility] PRIOR TO ANY CONSIDERATION OF LONG-TERM PLACEMENT PT WILL NOT GET THERAPY THERE. CM SPOKE TO PT WHO IS IN AGREEMENT WITH PLAN. CM CALLED [facility], , NOTIFIED OF REHAB REQUEST; PT HAS ONLY 24 ACUTE DAYS THAT STARTED IN JANUARY, IT DEPENDS ON HOW MANY HAVE BEEN ALREADY USED, PT'S CONDITION AND NEEDS THAT WOULD HAVE TO BE MET IN THE REMAINING DAYS THAT PT HAS TO USE FOR REHAB . CM FAXED REFERRALINFORMATION TO [facility] WITH CURRENT MAR AT [phone]. CM WAITING ADMISSION DETERMINATION FROM [facility] IN [place]. Sandor Butt, CASE MANAGEMENT Appended by Sandor Butt on 05/26/2019 15:24 CDT: CM MET WITH PT, GRANDDAUGHTER, DAUGHTER HOUSTON VIA PHONE WITH CM DOG BEAUTICIAN, UNIT NURSE NUT ROASTER HELPER, REPIRATORY THERAPIST AND DOG BEAUTICIAN OF THERAPY SERVICES REGARDING DISCHARGE PLANNING. CONCERNS OF PT'S PLAN TO GO HOME IN CURRENT CONDITION DISCUSSED. PT AND DAUGHTER HAVE ALREADY [facility], CM HAS SENT IT AND WAITING DETERMINATION. PLAN "B" WAS AGREED TO BE NURSING FACILITY IF NOT ACCEPTED TO [facility] AND THAT CM WOULD ATTEMPT TO FIND ONE THAT MAY DONATE REHAB SERVICES. PT'S DAUGHTER IS RESEARCHING [employer] FUNDING FROM [facility] FOR REHAB SERVICES. CHRISTOPHER WAITING ADMISSION DETERMINATION FROM [facility] IN [place]. ROSANNA Monroe MANAGEMENT DCP- Discharge Planning Updated by [id number]: Sandor Butt on 05/25/19 2:[address] Patient Name: TROY HAYWOOD Encounter No: [id number] : 1955 Primary Insurance: MEDICAID [facility] Date: Planned Disposition: Home HEALTH External Planned Provider: [facility], VISITING NURSES [facility] DCP follow-up note: CM MET WITH PT IN ROOM TO DISCUSS DISCHARGE NEEDS AND PLANNING. CM DISCUSSED AVAILABILITY OF HOME HEALTH, REHAB SERVICES AND MEDICAL EQUIPMENT. PT REFUSES [facility] FACILITY PLACEMENT. PT STATES PLAN TO RETURN HOME. 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 PT WAS ABLE TO AMBULATE SMALL DISTANCES AND TRANSFER SELF FROM BED TO ELECTRIC WHEELCHAIR AT HOME. PT THINKS SHE IS GOING TO BE ABLE TO TRANSFER SELF TO GO BACK HOME. PT WANTS HOME HEALTH RESUMED TO GO HOME. CM EXPRESSED CONCERN OF PT'S CURRENT LEVEL OF FUNCTIONING AND RETURNING HOME. PT DENIES HAVING FRIENDS OR FAMILY TO ASSIST WITH HER CARE AT HOME BUT IS NOT GOING TO A LONG-TERM. PT THINKS SHE WILL NEED AN AMBULANCE FOR TRANSPORT HOME HER ELECTRIC WHEELCHAIR IS THERE. CM EXPLAINED TO PT THAT SHE WILL NEED TO DEMONSTRATE WITH THERAPY THE ABILITY TO TRANSFER AND SIT IN CHAIR FOR DISCHARGE. PT STATED UNDRESTANDING. CHOICE FOR [facility]IS[facility] NURSES [facility] SIGNED. 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 PT REFUSED NURSING FACILITY PLACEMENT. PT WILL NEED TO DEMONSTRATE ABILITY TO TRANSFER AND SIT IN CHAIR FOR DISCHARGE SHE HAS ELECTRIC WHEELCHAIR AT HOME. CM TO ARRANGE HOME HEALTH RESUMPTION WITH [facility] VISITING NURSES [place] IN [place] FOR DISCHARGE HOME. CM TO CONTINUE TO FOLLOW AND ASSIST NEEDED. Sandor Butt, CASE MANAGEMENT DCP- Discharge Planning Updated by [id number]: Aleisha Monroe on 05/19/19 7:[address] Patient Name: TROY HAYWOOD Admission Status: ER Accout number: [id number] Admission Date: 05-14-2019 : 1955 Admission Diagnosis: Attending: FABIO PINEDA Current LOS: 5 Anticipated DC Date: Planned Disposition: Home or Self Care Primary Insurance: MEDICAID [place] Discharge Planning Comments: CM met with patient and daughter to complete initial dc planning assessment. Patient recently extubated earlier today. CM educated patient on the CM role and verbal consent given by patient to complete assessment. Patient lives at home with her two young grand-daughters where she is independent with her care. At discharge patient plans to return home and feels this is a safe discharge. CM discussed availability of home health, rehab services, and medical equipment. Patient has Home 02 and HH with unknown providers. CM will f/u with patient @ later date to see if she is able to give providers. Patient denied known discharge needs at this time. CM will continue to follow and will assist as needed with dc plans/needs. Vehicle Assembly Inspector: Aleisha ELDERA - Discharge Planning Initial Assessment Updated by NAYLA: Sandor Butt on 05/28/19 9:36 am * How many steps to enter\\exit or inside your home? * PCP uncertain ? * Pharmacy [place] * Preadmission Environment Home with Family * ADLs Independent * Other Equipment HOME 02, WALKER, SCOOTER, BSC, SC * List name and contact numbers for known caregivers / representatives who currently or will assist patient after discharge: CHEPE SUN - DAUGHTER- [phone] HOUSTON SALGADO, DTR - [phone] * Verbal permission to speak to the caregivers and representatives has been obtained from the patient. Yes * Community resources currently utilized Home Health * Please name any agencies selected above. [facility] * Additional services required to return to the preadmission environment? No * Can the patient safely return to the preadmission environment? Yes * Has this patient been hospitalized within the prior 30 days at any hospital? No External Providers External Provider: [facility] and [facility] Next Contact Date: 06/15/2019 Service Request Date: Service Type: Resolution: Reviewer: Comments: Coverage Notice Reviewer: NAYLA Butt Notice Issued Date-Time: 05/25/2019 14:05 Notice Type: Patient Choice Letter Notice Delivered To: Patient Relationship to Patient: Hotel Desk Clerk Name: Delivery Method: HAND - Hand Delivered Marry Days: Prior Verbal Notification: Recipient Understood Notice: Yes Recipient Signature: Yes Med Rec Note Co-signed by Attending: Coverage Notice Comment: [facility]- VISITING NURSES [facility] ([facility] Reviewer: [email or web address] Butt Notice Issued Date-Time: 05/31/2019 14:50 Notice Type: Patient Choice Letter Notice Delivered To: Patient Relationship to Patient: Hotel Desk Clerk Name: Delivery Method: HAND - Hand Delivered Marry Days: Prior Verbal Notification: Recipient Understood Notice: Yes Recipient Signature: Yes Med Rec Note Co-signed by Attending: Coverage Notice Comment: [facility] Reviewer: [email or web address] Butt Notice Issued Date-Time: 06/09/2019 9:55 Notice Type: Patient Choice Letter Notice Delivered To: Patient Relationship to Patient: Hotel Desk Clerk Name: Delivery Method: HAND - Hand Delivered Marry Days: Prior Verbal Notification: Recipient Understood Notice: Yes Recipient Signature: Yes Med Rec Note Co-signed by Attending: Coverage Notice Comment: [facility]EPT[facility] Reviewer: [id number] Josef Butt Notice Issued Date-Time: 06/10/2019 16:25 Notice Type: Patient Choice Letter Notice Delivered To: Patient Relationship to Patient: Hotel Desk Clerk Name: Delivery Method: HAND - Hand Delivered Marry Days: Prior Verbal Notification: Recipient Understood Notice: Yes Recipient Signature: Yes Med Rec Note Co-signed by Attending: Coverage Notice Comment: MASTER Piña DP export: 06/11/19 3:35 Patient Name: TROY HAYWOOD Page [id number] at 0906 All edits/amendments must be made on the electronic document DICTATION DATE: 06/15/19905 PINMAKER: MISHEL 06/15/19905 RPT#: [id number] DC DATE: STATUS: ADM IN [facility] [address] [place] [address] END OF REPORT
--- NOTE | 2019-06-15 09:20 | MORECARE ---
CASE MANAGEMENT DISCHARGE SUMMARY PATIENT: TROY HAYWOOD UNIT: [id number] ADM DATE: 05/14/19 AGE: 64 : 57 SEX: F ROOM/BED: D.2140 AUTHOR: DAYDAY,DOC PHYSICIAN: REFERRING PHYSICIAN: FABIO PINEDA MD DATE OF SERVICE: 06/15/19 Discharge Plan Patient Name: TROY HAYWOOD Facility: [facility]:[place] : 1955 Planned Disposition: Nursing Facility [facility] Cert Anticipated Discharge Date: 06/11/19 Discharge Date: Expected LOS: 28 Initial Reviewer: [id number] Initial Review Date: 05/19/2019 Generated: 06/15/19 10:19 am Comments DCP- Discharge Planning Updated by [id number]: Sandor Carrasquillo on 06/15/19 8:[address] Patient Name: TROY HAYWOOD Encounter No: [id number] : 1955 Primary Insurance: [place] Anticipated DC Date: 06-11-2019 Planned Disposition: Nursing Facility [facility] Cert External Planned Provider: FIRST ACCEPTING DCP follow-up note: CHRISTOPHER SENT MESSAGE TO TROY MIMS, , OF [facility] ASKING FOR SENIOR LIVING CARE PLACEMENT ASSISTANCE WITH REHAB IF POSSIBLE. CHRISTOPHER FAXED REFERRAL TO TROY AT [phone]. CM CALLED [facility] IN [facility], , HE HAS NOT BEEN ABLE TO GET A DETERMINATION ON TREY AND CANNOT LOCATE THE PERSON IN CORPORATE WHO HAS PT'S TREY APPLICATION. HE WILL CONTINUE TO TRY TO LOCATE WHO IS PROCESSING THE APPLICATION HE HAS NOT SEEN IT OR HEARD ANY DETERMINATION. CHRISTOPHER FAXED REFERRAL UDPATE TO [facility] AT [phone]. M FAXED UPDATE TO [facility] AT [phone]. CHAR INFORMED CHRISTOPHER THAT SHE HAS NO BERIATRIC ALF BED YET BUT IS HOPEUL TO HAVE AN OPENING "SOON". . - CM WAITING ADMISSION DETERMINATION FROM [facility] FOR MANAGEMENT INTERN CARE PLACEMENT IN ONE OF HER AFFILIATED NURSING HOMES. - CM WAITING RETURN CALL FROM [facility] IN [place] REGARDING TREY REHAB. - CM WAITING DETERMINATION FROM TROY M[facility] OF [facility] FOR SENIOR LIVING CARE PLACEMENT IN ONE OF HER AFFILIATED NURSING HOMES. ROSANNA Montaño DCP- Discharge Planning Updated by [id number]: Sandor Carrasquillo on 06/11/19 3:[address] Patient Name: TROY HAYWOOD Encounter No: [id number] : 1955 Primary Insurance: [place]ID [place] Anticipated DC Date: 06-11-2019 Planned Disposition: Nursing Facility [facility] Cert External Planned Provider: : DCP follow-up note: CM RECEIVED MESSAGE FROM TROY OF [facility], THEY WILL NOT ACCEPT PT. CM FAXED REFERRAL UDPATE TO [facility] AT [phone]. CM FAXED UPDATE TO [facility] AT [phone]. CHAR INFORMED CM THAT SHE ANTICIPATES A BERIATRIC ALF BED OPENING "SOON". CM NOTIFIED PT AND DAUGHTER OF PROGRESS / LACK THEREOF IN ROOM. - CM WAITING ADMISSION DETERMINATION FROM [facility] FOR MANAGEMENT INTERN CARE PLACEMENT IN ONE OF HER AFFILIATED NURSING HOMES. - CM WAITING RETURN CALL FROM [facility] IN [place] REGARDING TREY REHAB. ROSANNA Montaño DCP- Discharge Planning Updated by [id number]: Sandor Carrasquillo on 06/10/19 3:[address] Patient Name: TROY HAYWOOD Encounter No: [id number] : 1955 Primary Insurance: [place] Anticipated DC Date: 06-11-2019 Planned Disposition: Nursing Facility [facility] Cert External Planned Provider: FIRST ACCEPTING FACILITY DCP follow-up note: - CM RECEIVED CALL FROM [facility], THEY HAVE NOT AVAILABILITY FOR TREY REHAB BED. CM RECEIVED CALL FROM [facility], THEY HAVE NOT RECEIVED TREY APPLICATION AND HAVE NO CURRENT BEDS BUT WOULD CONSIDER PT. CM RETURNED CALL TO MITCH AT [facility], , INFORMED THAT TREY APPLICATION HAD [facility], TELEPHONE CONTACT [phone]. HETAL ASKED FOR REFERRAL TO BE SENT AND HE WILL SCREEN FOR ADMISSION. CM FAXED REFERRAL TO [facility] AT [phone]. CM NOTIFIED PT AND DAUGHTER OF PROGRESS IN ROOM. PT AND DAUGHTER ASKED FOR CM TO SEND REFERRAL TO [facility] IN [place]. CHOICE SIGNED. CM FAXED REFERRAL TO [facility]IA [facility] AT [phone]. - CM WAITING ADMISSION DETERMINATION FROM [facility] FOR SENIOR LIVING CARE PLACEMENT IN ONE OF HER AFFILIATED NURSING HOMES. - CM WAITING RETURN CALL FROM [facility] IN [place] REGARDING [facility]REY REHAB. - CM WAITING ADMISSION DETERMINATION FROM [facility]. Sandor Carrasquillo, CASE MANAGEMENT DCP- Discharge Planning Updated by [id number]: Sandor Carrasquillo on 06/09/19 3:[address] Patient Name: TROY HAYWOOD Encounter No: [id number] : 1955 Primary Insurance: [place] Anticipated DC Date: 06-10-2019 Planned Disposition: Nursing Facility [facility] Cert External Planned Provider: FIRST ACCEPTING FACILITY DCP follow-up note: CM SPOKE TO PT AND DAUGHTER, CHEPE, THEY WILL LET CM SEEK ALF PLACEMENT FOR THEM TO CONSIDER BUT STILL DO NOT WANT SENIOR LIVING CARE IF THEY CAN OBTAIN REHAB THROUGH THE [facility]. DAUGHTER ADVISED SHE HAS CONFIRMED RECEIPT OF THE APPLICATION FAXED TO THE [facility] AND IS IN PROCESS OF REVIEW. DAUGHTER ASKED CM TO CHECK INTO REHAB'S THAT MAY HAVE [facility] AFFILIATION. CM CALLED [facility], , REQUESTED ASSISTANCE IN MANAGEMENT INTERN CARE PLACEMENT WITH INTENT TO RETURN HOME. CHAR STATES THAT SHE MAY HAVE HOME'S WILL ACCEPT BARIATRIC PATIENT AND WILL ATTEMPT PLACEMENT. CHAR WILL MEET WITH PT LATER TODAY. CM FAXED REFERRAL TO [facility] AT [phone]. CM SPOKE TO [facility]OY MIM[facility] OF [facility], TROY INFORMED CM THAT SHE HAS NO HOMES IN HER GROUP THAT MAY ASSIST WITH PLACEMENT. CM CALLED [facility] [place], WAS ADVISED BY [facility] THAT THEY WILL NOT CONSIDER FOR TREY CARE, THEY ARE NOT AFFILIATED WITH [facility] FOR REHAB MEDICINE. CM CALLED [facility], , SPOKE TO CHELO WHO INFORMED CM THAT THEY ARE NOT AFFILIATED WITH [facility] BUT WILL CONSIDER PT FOR TREY REHAB. CM FAXED REFERRAL TO [facility] AT [phone]. CM CALLED [facility] IN [place], , SPOKE TO DHEERAJ WHO REPORTS THEY HAVE NO OPEN REHAB BEDS AND HAVE NO PROJECTED DISCHARGES SOON. THEY DO NOT HAVE WEIGHT LIMITS. DHEERAJ DID NOT WANT REFERRAL FAXED, SHE WILL REPORT TO BREN WHO WILL CHECK WITH THE [facility] REGARDING APPLICATION STATUS AND CALL CM TOMORROW, 06-10-19. CM NOTIFIED PT IN ROOM OF PROGRESS. PT STATES SHE MAY BE ABLE TO TRANSFER SELF AND GO HOME BEFORE CM FINDS REHAB FOR HER. - CM WAITING ADMISSION DETERMINATION FROM [facility] FOR SENIOR LIVING CARE PLACEMENT IN ONE OF HER AFFILIATED NURSING HOMES. - CM WAITING ADMISSION DETERMINATION FROM [facility] FOR [facility] BED. - CM WAITING RETURN CALL FROM [facility] IN [place] REGARDING [facility]Y REHAB. Sandor Carrasquillo, CASE MANAGEMENT DCP- Discharge Planning Updated by [id number]: Sandor Carrasquillo on 06/04/19 4:[address] Patient Name: TROY HAYWOOD Encounter No: [id number] : 1955 Primary Insurance: [place] Anticipated DC Date: 06-02-2019 Planned Disposition: Nursing Facility [facility] Cert External Planned Provider: TO BE DETERMINED DCP follow-up note: CM SPOKE TO PT AND DAUGHTER CHEPE, IN ROOM. PT IS AND FOR PAST 10 YEARS, BUT NOT LEGALLY. THEY CANNOT QUALIFY FOR MEDICAID FOR MANAGEMENT INTERN CARE DUE TO NOT HAVING SPOUSE FINANICAL INFORMATION. PT AND DAUGHTER BOTH STATE THAT THEY DO NOT WANT TO PUT PT INTO SENIOR LIVING ALF CARE WHERE SHE WILL JUST LAY IN THE BED. THEY DO NOT WANT FURTHER ALF REFERRALS FAXED OUT. CM DISCUSSED THAT PT IS STABLE FOR DISCHARGE MEDICALLY. PT'S DAUGHTER REPORTS PT IS NOT HAVING BOWEL MOVEMENTS AND THAT THE FECES COMING OUT IS COMING AROUND AN IMPACTION AND NO ONE IS ADDRESSING THIS. CM NOTIFIED TOBY THOMAS WHO PROVIDED ORDERS FOR MEDICATION TO TREAT CONDITION. BEDSIDE NURSE NOTIFIED. PT'S DAUGHTER PROVIDED CM WITH 77 PAGES AND ASKED CM TO FAX TO [facility] FOR FINANCIAL ASSISTANCE REGARDING REHAB SERVICES FOR PT. CM FAXED TO [facility] AT [phone]. PT'S DAUGHTER ADVISED THAT IF APPROVED, PT WILL HAVE TO GO TO [facility] FOR REHAB. PT WAS DECLINED MANAGEMENT INTERN CARE PLACEMENT AT [facility]; PT AND FAMILY DECLINE TO HAVE FURTHER REFERRALS SENT OUT. FAMILY IS TRYING TO SECURE FINANCIAL ASSISTANCE FOR REHAB SERVICES THROUGH [facility]. CM TO CONTINUE TO FOLLOW AND ASSIST. Sandor Carrasquillo CASE MANAGEMENT DCP- Discharge Planning Updated by [id number]: Sandor Carrasquillo on 06/04/19 11:[address] Patient Name: TROY HAYWOOD Encounter No: [id number] : 1955 Primary Insurance: [place]ID [place] Anticipated DC Date: 06-02-2019 Planned Disposition: Nursing Facility [facility] Cert External Planned Provider: WAITING FAMILY DECISION DCP follow-up note: CM RECEIVED CALL FROM [facility] WHO ADVISED CM THAT PT HAS BEEN FIANCIALLY DENIED FOR PLACEMENT. CM SPOKE TO PT IN ROOM WHO ADVISED THAT SHE UNDERSTOOD THEY WERE JUST GOING TO LEAVE HER LAYING IN BED FOR A MONTH AND NOT GIVE HER ANY REHAB SERVICES. CM EXPLAINED THAT MEDICAID DOES NOT PAY FOR REHAB SERVICES, ONLY SENIOR LIVING CARE AND PT WOULD RECEIVE WHAT THEY CALL "RESTORATIVE CARE" FROM STAFF AT ANY ALF, NOT THERAPY SERVICES. PT STATES SHE IS NOW ABLE TO STAND UP WITH THERAPY HERE. CM EXPLAINED THAT PT IS GETTING 8 TO 16 MINUTES OF THERAPY PER DAY AND THAT ALTHOUGH CM WAS HAPPY WITH PROGRESSION, PT IS MEDICALLY STABLE TO LEAVE THE HOSPITAL AND THAT SHE WOULD RECEIVE MORE THERAPY AT HOME WITH HOME HEALTH THAN IN THIS ACUTE HOSPITAL SETTING. PT STATES SHE IS NOT SURE WHAT HAPPENED, THAT CHEPE IS TAKING CARE OF THIS FOR HER AND THAT CHEPE WILL BE TO THE HOSPITAL IN A LITTLE WHILE TO SPEAK TO CM; PT BELIVES THAT CHEPE IS AGAIN WORKING ON TRYING TO GET TREY REHAB CARE THROUGH THE [facility] PRO[facility]. PT HAS BEEN FINANCIALLY DECLINED FOR MANAGEMENT INTERN CARE PLACEMENT BY [facility]. PT DEFERRING PLANNING TO HER DAUGHTER, CHEPE. CM WAITING FAMILY TO ARRIVE TO DISCUSS FURTHER DISCHARGE PLANNING. Sandor Carrasquillo CASE MANAGEMENT DCP- Discharge Planning Updated by [id number]: Sandor Carrasquillo on 06/03/19 7:[address] Patient Name: TROY HAYWOOD Encounter No: [id number] : 1955 Primary Insurance: [place] Anticipated DC Date: 06-02-2019 Planned Disposition: Nursing Facility [facility] External Planned Provider: [facility] SENIOR LIVING CARE MEDICAID BED DISCHARGE PLANNING NOTE: CM FAXED REFERRAL UPDATE TO [facility] AT [phone]. CM WAITING ADMISSION DETERMINATION FROM [facility] FOR MANAGEMENT INTERN CARE. WAITING FAMILY TO PROVIDE FINANCIAL INFORMATION FOR SENIOR LIVING CARE MEDICAID APPLICATION TO FACILITY. ROSANNA Montaño MANAGEMENT DCP- Discharge Planning Updated by [id number]: Sandor Carrasquillo on 06/02/19 3:[address] Patient Name: TROY HAYWOOD Encounter No: [id number] : 1955 Primary Insurance: [place] Anticipated DC Date: 06-02-2019 Planned Disposition: Nursing Facility [facility] External Planned Provider: [facility] MEDICAID BED DCP follow-up note: CM FAXED REFERRAL UPDATE TO [facility] AT [phone]. CM WAITING ADMISSION DETERMINATION FROM [facility] FOR MANAGEMENT INTERN CARE. Sandor Carrasquillo CASE MANAGEMENT Appended by Sandor Carrasquillo on 06/02/2019 16:50 WATER SERVICE DISPATCHER: CM RECEIVED CALL FROM LUIS OF [facility], , THEY RECEIVED THE UPDATE BY FAX AND WILL CONTACT FAMILY REGARDING FINANCIALS. LUIS REPORTS THEY ARE STILL WAITING ON NURSING TO ACCEPT FOR MANAGEMENT INTERN CARE AND WILL ALSO NEED FINANCIAL CLEARANCE TO ENTER THE FACILITY. CHRISTOPHER WAITING ADMISSION DETERMINATION FROM [facility] FOR MANAGEMENT INTERN CARE. [facility] CONTACTING FAMILY TO ASSIST WITH FINANCIAL INFORMATION FOR MANAGEMENT INTERN CARE MEDICAID APPLICATION. ROSANNA Montaño DCP- Discharge Planning Updated by [id number]: Sandor Carrasquillo on 06/01/19 4:[address] Patient Name: TROY HAYWOOD Encounter No: [id number] : 1955 Primary Insurance: [place]ID [place] Anticipated DC Date: 06-02-2019 Planned Disposition: Nursing Facility [facility] Cert External Planned Provider: [facility], MANAGEMENT INTERN CARE MEDICAID BED DCP follow-up note: CHRISTOPHER MET WITH PT AND DAUGHTER HOUSTON, WHO HAS MADE IT FROM [place]. UPDATE PROVIDED. [facility] THAT REFERRAL FROM AND [facility] WAS RECEIVED, STAFF IN MEETING TODAY AND THEY WILL FINISH ADMISSION REVIEW TOMORROW, 06-02-19. CM NOTIFIED PT AND DAUGHTER IN ROOM. CM WAITING ADMISSION DETERMINATION [facility]. Sandor Carrasquillo CASE MANAGEMENT DCP- Discharge Planning Updated by [id number]: Sandor Carrasquillo on 05/31/19 3:[address] Patient Name: TROY HAYWOOD Encounter No: [id number] : 1955 Primary Insurance: [place] Anticipated DC Date: 06-01-2019 Planned Disposition: Nursing Facility [facility] External Planned Provider: [facility], MANAGEMENT INTERN CARE MEDICAID BED DCP follow-up note: AFTER SEVERAL VISITS WITH PT IN ROOM, PHONE CALLS WITH DAUGHTERS, [facility] AND [facility], PT DECIDED TO CONSENT TO 30 DAYS OF MANAGEMENT INTERN CARE AT [facility] AFTER PT'S DAUGTHERS, WITH AIDE [facility], LOCATED [facility] WHO WILL CONSIDER PT FOR CARE. PT SIGNED CHOICE. CM FAXED REFERRAL INFORMATION TO [facility] AT [phone]. CM WAITING ADMISSION DETERMINATION FROM [facility] AND [facility] FOR SENIOR LIVING CARE. Sandor Carrasquillo CASE MANAGEMENT DCP- Discharge Planning Updated by [id number]: Sandor Carrasquillo on 05/28/19 3:[address] Patient Name: TROY HAYWOOD Encounter No: [id number] : 1955 Primary Insurance: [place] Anticipated DC Date: 06-02-2019 Planned Disposition: Home with [facility] External Planned Provider: [facility] DCP follow-up note: CM RECEIVED CALL FROM PT'S DAUGHTER, CHEPE, WHO VERIFIED THAT SHE WILL COME NEXT WEEK TO STAY WITH PT FOR TWO OR THREE WEEKS TO CARE FOR PT AT HOME. CHEPE WILL DISCUSS WITH HER MOTHER THAT SHE WILL HAVE TO BE ABLE TO STAND AND TRANSFER FOR CHEPE TO CARE FOR HER. CM REVIEWED THERAPY NOTES TO PRESENT. 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 PT HAS BEDSIDE COMMODE AND WHEELCHAIR AT HOME. CHEPE REPORTS NEED OF [facility] RESUMPTION. CHEPE WILL DISCUSS WITH PT AND TRY TO MOTIVATE HER TO MEET THERAPY GOALS PRIOR TO ARRIVAL ON NEXT FRIDAY OR FRIDAY. PT'S DAUGHTER PLANS TO TAKE PT HOME NEXT FRIDAY OR FRIDAY, THEY WILL NEED [facility] RESUMPTION, DENIES FURTHER NEEDS. CM TO FOLLOW AND ASSIST NEEDED. Sandor Carrasquillo, CASE MANAGEMENT DCP- Discharge Planning Updated by [id number]: Sandor Carrasquillo on 05/28/19 2:[address] Patient Name: TROY HAYWOOD Encounter No: [id number] : 1955 Primary Insurance: [place] Anticipated DC Date: Planned Disposition: Nursing Facility [facility] External Planned Provider: TO BE DETERMINED DCP follow-up note: CM [facility] TO [facility], SHE INFORMED CM THAT UPDATES HAVE BEEN RECEIVED, PT IS NOT MAKING ENOUGH PROGRESS WITH THERAPY THAT THEY DO NOT BELIEVE THAT PT WILL BE ABLE TO ACHIEVE THERAPY GOALS IN THE REMAINING 10 DAYS OF ACUTE DAYS THAT PT HAS REMAINING. CM NOTIFIED PT AND PROVIDED PT WITH NURSING FACILITY LISTING OF ALL AVAILABLE FACILITIES WITHIN [address] [place]. PT WILL SPEAK TO HER DAUGHTER AND NOTIFY CM OF HER CHOICES. CM CALLED [facility], , TWICE; AUTOMATED MESSAGE INFORMED CM THAT THE NUMBER WAS RESTRICTED OR CURRENTLY UNAVAILABLE. CM WAITING PT AND FAMILY TO PROVIDE NURSING FACILITY CHOICES FOR SENIOR LIVING CARE. Sandor Carrasquillo, CASE MANAGEMENT Appended by Sandor Carrasquillo on 05/28/2019 12:07 CDT: CM SPOKE TO PT IN ROOM, NOTIFIED PT THAT CM TRIED AND COULD NOT REACH DAUGHTER HOUSTON VIA PHONE. PT REPORTS SHE SPOKE TO [facility] WHO TOLD HER THAT [facility] WILL NOT TAKE HER DUE TO WEIGHT; PT'S DAUGHTER TOLD PT THAT [facility] WILL NOT TAKE HER. PT REPORTS THERE IS ONE IN [place] THAT MIGHT CONSIDER HER. CM OFFERED CHOICE FORM FOR SIGNATURE SO THAT CM COULD SEND REFERRALS AND BEGIN CALLING TO FIND PLACEMENT. PT REFUSED AND STATES SHE HAS A DAUGHTER, CHEPE, WHO IS A REGISTERED NURSE, THAT MAY BE COMING TO TAKE CARE OF PT AT HOME. PT'S DAUGHTER HOUSTON IS CALLING DAUGHTER CHEPE TO DISCUSS THE OPTION. PT STATES SHE WILL LET CM KNOW THE OUTCOME AND IF SHE WANTS CM TO EXPLORE ALF CARE FOR HER. CM WAITING PT AND FAMILY TO PROVIDE NURSING FACILITY CHOICES AND FOR PT TO SIGN CONSENT FOR ALF PLACEMENT. PT IS NOW HOPEFUL THAT HER DAUGHTER WHO IS A REGISTERED NURSE WILL COME AND STAY WITH PT AND TAKE CARE OF HER AT HOME. SANDOR CARRASQUILLO, CASE MANAGEMENT Appended by Sandor Carrasquillo on 05/28/2019 14:27 CDT: CM RECEIVED MESSAGE THAT PT WANTS TO SEE CM. CM MET WITH PT IN ROOM WHO INFORMED CM THAT SHE HIS NOT GOING TO A ALF, THAT HER DAUGHTER, CHEPE, WHO IS A NURSE, WILL BE HERE NEXT FRIDAY TO TAKE HER HOME AND WILL TAKE CARE OF PT AT HOME. PT ASKED FOR [facility] RESUMPTION. CM DISCUSSED POSSIBLE NEED OF DEBORAH LIFT AND ASKED ABOUT ADDITIONAL EQUIPMENT. PT THINKS BY NEXT WEEK, SHE WILL BE ABLE TO TRANSFER WITHOUT AIDE OF LIFT DEVICE. CM NOTIFIED DR. FREEDMAN WHO INFORMED CM THAT HE WILL ORDER BLOOD GAS ON FRIDAY TO DETERMINE RESPIRATORY DISCHARGE NEEDS AT THAT TIME. PT HAS SIGNED RIGHT OF CHOICE FOR [facility] ALREADY. PT REPORTS HER DAUGHTER, WHO IS A REGISTERED NURSE, WILL BE HERE FRIDAY OF NEXT WEEK TO TAKE CARE OF PT AT HOME. PT PLANS TO DISCHARGE HOME WITH FAMILY AND [facility]. CM TO FOLLOW AND ASSIST NEEDED. ROSANNA MONTAÑO MANAGEMENT DCP- Discharge Planning Updated by [id number]: Sandor Carrasquillo on 05/28/19 7:[address] Patient Name: TROY HAYWOOD Encounter No: [id number] : 1955 Primary Insurance: [place] Anticipated DC Date: Planned Disposition: Inpatient Rehab External Planned Provider: [facility] DCP follow-up note: CM FAXED REFERRAL UPDATE TO [facility] AT [phone]. CM WAITING ADMISSION DETERMINATION FROM [facility] IN [place]. ROSANNA Montaño DCP- Discharge Planning Updated by [id number]: Sandor Carrasquillo on 05/27/19 2:[address] Patient Name: TROY HAYWOOD Encounter No: [id number] : 1955 Primary Insurance: [place] Anticipated DC Date: Planned Disposition: Inpatient Rehab External Planned Provider: [facility] DCP follow-up note: CM FAXED REFERRAL UPDATE TO [facility] AT [phone]. CM WAITING ADMISSION DETERMINATION FROM [facility] IN [place]. Sandor Carrasquillo, CASE MANAGEMENT Appended by Sandor Carrasquillo on 05/27/2019 14:41 CDT: CM CALLED [facility], , LEFT MESSAGE ASKING FOR UPDATE ON REFERRAL AND TO KNOW IF THEY ARE STILL CONSIDERING PT FOR REHAB. CM WAITING ADMISSION DETERMINATION FROM [facility] IN [place]. Sandor Carrasquillo, CASE MANAGEMENT DCP- Discharge Planning Updated by [id number]: Jesica Cartagena on 05/26/19 4:[address] Patient requested Trapeze bar to allow her to sit up in hospital bed. CM spoke Dr. Lawson and obtained approval for Trapeze bar. CM notified Radha in materials management of request for Trapeze bar. CM completed and gave Radha the order form for the Trapeze bar. Trapeze bar will be delivered. CM notified patient's CM, Christiano Carrasquillo, on status of Trapeze bar. DCP- Discharge Planning Updated by [id number]: Sandor Carrasquillo on 05/26/19 3:[address] Patient Name: TROY HAYWOOD Encounter No: [id number] : 1955 Primary Insurance: MEDICAID [facility] Date: Planned Disposition: Inpatient Rehab External Planned Provider: [facility] DCP follow-up note: CM SPOKE TO PT'S DAUGHTER VIA PHONE, HOUSTON SALGADO, . CM OBTAINED PERMISSION FROM PT TO DISCUSS CARE, TREATMENT AND DISCHARGE PLANNING WITH HOUSTON. HOUSTON INFORMED CM THAT PT WAS IN REHAB AT [facility] LAST YEAR AND THEY WANT REFERRED TO [facility] AGAIN. CM DISCUSSED PT'S VERY LOW LEVEL OF PHYSICAL CONDITIONING. PT'S DAUGHTER FEELS THAT PT CAN PARTICIPATE WITH THERAPY WITH GOAL TO RETURN HOME PREVIOUS WITH ABILITY TO TRANSFER TO [facility] AND HOME HEALTH FOR CONTINUED HOME SERVICES. HOUSTON VERIFIED THAT PT HAS NO ADULTS ABLE TO LIVE WITH AND ASSIST PT AT HOME AT THIS TIME. HOUSTON ASKED ABOUT [facility] SERVICES THAT MAY TAKE PT AT NO COSTS DUE TO INCOME. CHRISTOPHER INFORMED HOUSTON THAT CM WAS NOT FAMILIAR WITH ANY OF THESE PROGRAMS. HOUSTON WOULD LIKE TO HAVE PT EVALUATED FOR REHAB AT [facility] PRIOR TO ANY CONSIDERATION OF ALF PLACEMENT PT WILL NOT GET THERAPY THERE. CHRISTOPHER SPOKE TO PT WHO IS IN AGREEMENT WITH PLAN. CM CALLED [facility], , NOTIFIED OF REHAB REQUEST; PT HAS ONLY 24 ACUTE DAYS THAT STARTED IN JANUARY, IT DEPENDS ON HOW MANY HAVE BEEN ALREADY USED, PT'S CONDITION AND NEEDS THAT WOULD HAVE TO BE MET IN THE REMAINING DAYS THAT PT HAS TO USE FOR REHAB . CM FAXED REFERRALINFORMATION TO [facility] WITH CURRENT MAR AT [phone]. CM WAITING ADMISSION DETERMINATION FROM [facility] IN [place]. Sandor Carrasquillo, CASE MANAGEMENT Appended by Sandor Carrasquillo on 05/26/2019 15:24 CDT: CM MET WITH PT, GRANDDAUGHTER, DAUGHTER HOUSTON VIA PHONE WITH CM ELECTRIC RANGE SERVICER, UNIT NURSE CRATE LINER, REPIRATORY THERAPIST AND ELECTRIC RANGE SERVICER OF THERAPY SERVICES REGARDING DISCHARGE PLANNING. CONCERNS OF PT'S PLAN TO GO HOME IN CURRENT CONDITION DISCUSSED. PT AND DAUGHTER HAVE ALREADY ASKED FOR REFERRAL TO [facility], CM HAS SENT IT AND WAITING DETERMINATION. PLAN "B" WAS AGREED TO BE NURSING FACILITY IF NOT ACCEPTED TO [facility] AND THAT CM WOULD ATTEMPT TO FIND ONE THAT MAY DONATE REHAB SERVICES. PT'S DAUGHTER IS RESEARCHING ZEKE FUNDING FROM [facility] FOR REHAB SERVICES. CM WAITING ADMISSION DETERMINATION FROM [facility] IN [place]. Sandor Carrasquillo, CASE MANAGEMENT DCP- Discharge Planning Updated by [id number]: Sandor Carrasquillo on 05/25/19 2:[address] Patient Name: TROY HAYWOOD Encounter No: [id number] : 1955 Primary Insurance: MEDICAID [facility] Date: Planned Disposition: Home HEALTH External Planned Provider: [facility], VISITING NURSES [facility] follow-up note: CM MET WITH PT IN ROOM TO DISCUSS DISCHARGE NEEDS AND PLANNING. CM DISCUSSED AVAILABILITY OF HOME HEALTH, REHAB SERVICES AND MEDICAL EQUIPMENT. PT REFUSES [facility] F[facility]ILITY PLACEMENT. PT STATES PLAN TO RETURN HOME. 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 PT WAS ABLE TO AMBULATE SMALL DISTANCES AND TRANSFER SELF FROM BED TO ELECTRIC WHEELCHAIR AT HOME. PT THINKS SHE IS GOING TO BE ABLE TO TRANSFER SELF TO GO BACK HOME. PT WANTS HOME HEALTH RESUMED TO GO HOME. CM EXPRESSED CONCERN OF PT'S CURRENT LEVEL OF FUNCTIONING AND RETURNING HOME. PT DENIES HAVING FRIENDS OR FAMILY TO ASSIST WITH HER CARE AT HOME BUT IS NOT GOING TO A ALF. PT THINKS SHE WILL NEED AN AMBULANCE FOR TRANSPORT HOME HER ELECTRIC WHEELCHAIR IS THERE. CM EXPLAINED TO PT THAT SHE WILL NEED TO DEMONSTRATE WITH THERAPY THE ABILITY TO TRANSFER AND SIT IN CHAIR FOR DISCHARGE. PT STATED UNDRESTANDING. CHOICE FOR [facility] VISITING NURSES HOME HEALTH SIGNED. 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 PT REFUSED NURSING FACILITY PLACEMENT. PT WILL NEED TO DEMONSTRATE ABILITY TO TRANSFER AND SIT IN CHAIR FOR DISCHARGE SHE HAS ELECTRIC WHEELCHAIR AT HOME. CM TO ARRANGE HOME HEALTH RESUMPTION WITH [facility] VISITING NURSES AGENCY IN [place] FOR DISCHARGE HOME. CM TO CONTINUE TO FOLLOW AND ASSIST NEEDED. Sandor Carrasquillo, CASE MANAGEMENT DCP- Discharge Planning Updated by [id number]: Aleisha Monroe on 05/19/19 7:[address] Patient Name: TROY HAYWOOD Admission Status: ER Accout number: [id number] Admission Date: 05-14-2019 : 1955 Admission Diagnosis: Attending: FABIO PINEDA Current LOS: 5 Anticipated DC Date: Planned Disposition: Home or Self Care Primary Insurance: [place]ICAID [place] Discharge Planning Comments: CM met with patient and daughter to complete initial dc planning assessment. Patient recently extubated earlier today. CM educated patient on the CM role and verbal consent given by patient to complete assessment. Patient lives at home with her two young grand-daughters where she is independent with her care. At discharge patient plans to return home and feels this is a safe discharge. CM discussed availability of home health, rehab services, and medical equipment. Patient has Home 02 and HH with unknown providers. CM will f/u with patient @ later date to see if she is able to give providers. Patient denied known discharge needs at this time. CM will continue to follow and will assist as needed with dc plans/needs. Jacquard Lace Weaver: Aleisha Monroe DCPIA - Discharge Planning Initial Assessment Updated by [email or web address]: Sandor Carrasquillo on 05/28/19 9:36 am * How many steps to enter\\exit or inside your home? * PCP uncertain ? * Pharm[place] * Preadmission Environment Home with Family * ADLs Independent * Other Equipment HOME 02, WALKER, SCOOTER, BSC, SC * List name and contact numbers for known caregivers / representatives who currently or will assist patient after discharge: CHEPE SUN - DAUGHTER- [phone] HOUSTON SALGADO, DTR - [phone] * Verbal permission to speak to the caregivers and representatives has been obtained from the patient. Yes * Community resources currently utilized Home Health * Please name any agencies selected above. [facility] * Additional services required to return to the preadmission environment? No * Can the patient safely return to the preadmission environment? Yes * Has this patient been hospitalized within the prior 30 days at any hospital? No Coverage Notice Reviewer: NAYLA Carrasquillo Notice Issued Date-Time: 05/25/2019 14:05 Notice Type: Patient Choice Letter Notice Delivered To: Patient Relationship to Patient: Curator Name: Delivery Method: HAND - Hand Delivered Marry Days: Prior Verbal Notification: Recipient Understood Notice: Yes Recipient Signature: Yes Med Rec Note Co-signed by Attending: Coverage Notice Comment: [facility]- VISITING NURSES [facility] Reviewer: NAYLA Carrasquillo Notice Issued Date-Time: 05/31/2019 14:50 Notice Type: Patient Choice Letter Notice Delivered To: Patient Relationship to Patient: Curator Name: Delivery Method: HAND - Hand Delivered Marry Days: Prior Verbal Notification: Recipient Understood Notice: Yes Recipient Signature: Yes Med Rec Note Co-signed by Attending: Coverage Notice Comment: [facility] Reviewer: NAYLA Carrasquillo Notice Issued Date-Time: 06/09/2019 9:55 Notice Type: Patient Choice Letter Notice Delivered To: Patient Relationship to Patient: Curator Name: Delivery Method: HAND - Hand Delivered Marry Days: Prior Verbal Notification: Recipient Understood Notice: Yes Recipient Signature: Yes Med Rec Note Co-signed by Attending: Coverage Notice Comment: [facility]PT[facility] Reviewer: NAYLA Carrasquillo Notice Issued Date-Time: 06/10/2019 16:25 Notice Type: Patient Choice Letter Notice Delivered To: Patient Relationship to Patient: Curator Name: Delivery Method: HAND - Hand Delivered Marry Days: Prior Verbal Notification: Recipient Understood Notice: Yes Recipient Signature: Yes Med Rec Note Co-signed by Attending: Coverage Notice Comment: MASTER SANTIZO export: 06/15/19 8:06 Patient Name: TROY HAYWOOD Page [id number] at 0920 All edits/amendments must be made on the electronic document DICTATION DATE: 06/15/19918 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
--- NOTE | 2019-06-15 09:27 | MORECARE ---
CASE MANAGEMENT DISCHARGE SUMMARY PATIENT: TROY HAYWOOD UNIT: [id number] ADM DATE: 05/14/19 AGE: 64 : 57 SEX: F ROOM/BED: D.2140 AUTHOR: DAYDAY,DOC PHYSICIAN: REFERRING PHYSICIAN: FABIO PINEDA MD DATE OF SERVICE: 06/15/19 Discharge Plan Patient Name: TROY HAYWOOD Facility: [facility]:[place] : 1955 Planned Disposition: Nursing Facility YUN Cert Anticipated Discharge Date: 06/11/19 Discharge Date: Expected LOS: 28 Initial Reviewer: [id number] Initial Review Date: 05/19/2019 Generated: 06/15/19 10:26 am Comments DCP- Discharge Planning Updated by [id number]: Sandor Carrasquillo on 06/15/19 8:[address] Patient Name: TROY HAYWOOD Encounter No: [id number] : 1955 Primary Insurance: MEDICAID [place] Anticipated DC Date: 06-11-2019 Planned Disposition: Nursing Facility YUN Cert External Planned Provider: FIRST ACCEPTING DCP follow-up note: CHRISTOPHER SENT MESSAGE TO TROY MIMS, , OF [facility] ASKING FOR DETENTION CARE PLACEMENT ASSISTANCE WITH REHAB IF POSSIBLE. CHRISTOPHER FAXED REFERRAL TO TROY AT [phone]. CHRISTOPHER CALLED [facility] IN [facility], , HE HAS NOT BEEN ABLE TO GET A DETERMINATION ON TREY AND CANNOT LOCATE THE PERSON IN CORPORATE WHO HAS PT'S TREY APPLICATION. HE WILL CONTINUE TO TRY TO LOCATE WHO IS PROCESSING THE APPLICATION HE HAS NOT SEEN IT OR HEARD ANY DETERMINATION. CHRISTOPHER FAXED REFERRAL UDPATE TO [facility] AT [phone]. M FAXED UPDATE TO [facility] AT [phone]. CHAR INFORMED CHRISTOPHER THAT SHE HAS NO BERIATRIC INTERMEDIATE BED YET BUT IS HOPEUL TO HAVE AN OPENING "SOON". ASKED BY PT'S DAUGHTER, CHRISTOPHER CALLED AND SPOKE TO RUT, , OF [facility] AND REQUESTED PRIVATE PAY DOWN PAYMENT AND MONTHLY PAYMENT AMOUNTS FOR REHAB AT [facility]. CM FAXED REFERRAL TO [facility] AT [phone]. 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 - CM WAITING RETURN CALL FROM [facility] IN [place] REGARDING TREY REHAB. - CM WAITING DETERMINATION FROM TROY MIM[facility] OF [facility] FOR DETENTION CARE PLACEMENT IN ONE OF HER AFFILIATED NURSING HOMES. ROSANNA Montaño DCP- Discharge Planning Updated by [id number]: Sandor Carrasquillo on 06/11/19 3:[address] Patient Name: TROY HAYWOOD Encounter No: [id number] : 1955 Primary Insurance: MEDICAID [place] Anticipated DC Date: 06-11-2019 Planned Disposition: Nursing Facility YUN Cert External Planned Provider: : DCP follow-up note: CM RECEIVED MESSAGE FROM TROY OF [facility], THEY WILL NOT ACCEPT PT. CM FAXED REFERRAL UDPATE TO [facility] AT [phone]. CM FAXED UPDATE TO [facility] AT [phone]. CHAR INFORMED CM THAT SHE ANTICIPATES A BERIATRIC INTERMEDIATE BED OPENING "SOON". CM NOTIFIED PT AND DAUGHTER OF PROGRESS / LACK THEREOF IN ROOM. - CM WAITING ADMISSION DETERMINATION FROM [facility] FOR DETENTION CARE PLACEMENT IN ONE OF HER AFFILIATED NURSING HOMES. - CM WAITING RETURN CALL FROM [facility] IN [place] REGARDING TREY REHAB. ROSANNA Montaño DCP- Discharge Planning Updated by [id number]: Sandor Carrasquillo on 06/10/19 3:[address] Patient Name: TROY HAYWOOD Encounter No: [id number] : 1955 Primary Insurance: MEDICAID [place] Anticipated DC Date: 06-11-2019 Planned Disposition: Nursing Facility YUN Cert External Planned Provider: FIRST ACCEPTING FACILITY DCP follow-up note: - CM RECEIVED CALL FROM [facility], THEY HAVE NOT AVAILABILITY FOR TREY REHAB BED. CM RECEIVED CALL FROM MITCH OF [facility], THEY HAVE NOT RECEIVED TREY APPLICATION AND HAVE NO CURRENT BEDS BUT WOULD CONSIDER PT. CM RETURNED CALL TO MITCH AT [facility], , INFORMED THAT TREY APPLICATION HAD BEEN FAXED TO [facility], TELEPHONE CONTACT [phone]. HETAL ASKED FOR REFERRAL TO BE SENT AND HE WILL SCREEN FOR ADMISSION. CM FAXED REFERRAL TO [facility] AT [phone]. CM NOTIFIED PT AND DAUGHTER OF PROGRESS IN ROOM. PT AND DAUGHTER ASKED FOR CM TO SEND REFERRAL TO [facility] IN [place]. CHOICE SIGNED. CM FAXED REFERRAL TO [facility]IA [facility] AT [phone]. - CM WAITING ADMISSION DETERMINATION FROM [facility] FOR DETENTION CARE PLACEMENT IN ONE OF HER AFFILIATED NURSING HOMES. - CM WAITING RETURN CALL FROM [facility] IN [place] REGARDING TREY REHAB. - CM WAITING ADMISSION DETERMINATION FROM [facility]. Sandor Carrasquillo, CASE MANAGEMENT DCP- Discharge Planning Updated by [id number]: Sandor Carrasquillo on 06/09/19 3:[address] Patient Name: TROY HAYWOOD Encounter No: [id number] : 1955 Primary Insurance: MEDICAID [facility] DC Date: 06-10-2019 Planned Disposition: Nursing Facility YUN Cert External Planned Provider: FIRST ACCEPTING FACILITY DCP follow-up note: CM SPOKE TO PT AND DAUGHTERCHEPE, THEY WILL LET CM SEEK INTERMEDIATE PLACEMENT FOR THEM TO CONSIDER BUT STILL DO NOT WANT DETENTION CARE IF THEY CAN OBTAIN REHAB THROUGH THE [facility]. DAUGHTER ADVISED SHE HAS CONFIRMED RECEIPT OF THE APPLICATION FAXED TO THE [facility] AND IS IN PROCESS OF REVIEW. DAUGHTER ASKED CM TO CHECK INTO REHAB'S THAT MAY HAVE [facility] AFFILIATION. CM CALLED [facility], , REQUESTED ASSISTANCE IN DETENTION CARE PLACEMENT WITH INTENT TO RETURN HOME. CAHR STATES THAT SHE MAY HAVE HOME'S WILL ACCEPT BARIATRIC PATIENT AND WILL ATTEMPT PLACEMENT. CHAR WILL MEET WITH PT LATER TODAY. CM FAXED REFERRAL TO [facility] AT [phone]. CM SPOKE TO TROY MIMS OF [facility], TROY INFORMED CM THAT SHE HAS NO HOMES IN HER GROUP THAT MAY ASSIST WITH PLACEMENT. CM CALLED [facility] [place], WAS ADVISED BY [facility] THAT THEY WILL NOT CONSIDER FOR TREY CARE, THEY ARE NOT AFFILIATED WITH [facility]. CM CALLED [facility], , SPOKE TO CHELO WHO INFORMED CM THAT THEY ARE NOT AFFILIATED WITH [facility] BUT WILL CONSIDER PT FOR TREY REHAB. CM FAXED REFERRAL TO [facility] AT [phone]. CM CALLED [facility] IN [place], , SPOKE TO DHEERAJ WHO REPORTS THEY HAVE NO OPEN REHAB BEDS AND HAVE NO PROJECTED DISCHARGES SOON. THEY DO NOT HAVE WEIGHT LIMITS. DHEERAJ DID NOT WANT REFERRAL FAXED, SHE WILL REPORT TO BREN WHO WILL CHECK WITH THE [facility] PROGRAM REGARDING APPLICATION STATUS AND CALL CM TOMORROW, 06-10-19. CM NOTIFIED PT IN ROOM OF PROGRESS. PT STATES SHE MAY BE ABLE TO TRANSFER SELF AND GO HOME BEFORE CM FINDS REHAB FOR HER. - CM WAITING ADMISSION DETERMINATION FROM [facility] FOR DETENTION CARE PLACEMENT IN ONE OF HER AFFILIATED NURSING HOMES. - CM WAITING ADMISSION DETERMINATION FROM [facility] FOR TREY REHAB BED. - CM WAITING RETURN CALL FROM [facility] IN [place] REGARDING TREY REHAB. Sandor Carrasquillo, CASE MANAGEMENT DCP- Discharge Planning Updated by [id number]: Sandor Carrasquillo on 06/04/19 4:[address] Patient Name: TROY HAYWOOD Encounter No: [id number] : 1955 Primary Insurance: MEDICAID [place] Anticipated DC Date: 06-02-2019 Planned Disposition: Nursing Facility [facility] External Planned Provider: TO BE DETERMINED DCP follow-up note: CM SPOKE TO PT AND DAUGHTER CHEPE, IN ROOM. PT IS AND FOR PAST 10 YEARS, BUT NOT LEGALLY. THEY CANNOT QUALIFY FOR MEDICAID FOR ORDNANCE TRUCK INSTALLATION MECHANIC CARE DUE TO NOT HAVING SPOUSE FINANICAL INFORMATION. PT AND DAUGHTER BOTH STATE THAT THEY DO NOT WANT TO PUT PT INTO DETENTION INTERMEDIATE CARE WHERE SHE WILL JUST LAY IN THE BED. THEY DO NOT WANT FURTHER INTERMEDIATE REFERRALS FAXED OUT. CM DISCUSSED THAT PT IS STABLE FOR DISCHARGE MEDICALLY. PT'S DAUGHTER REPORTS PT IS NOT HAVING BOWEL MOVEMENTS AND THAT THE FECES COMING OUT IS COMING AROUND AN IMPACTION AND NO ONE IS ADDRESSING THIS. CM NOTIFIED TOBY THOMAS WHO PROVIDED ORDERS FOR MEDICATION TO TREAT CONDITION. BEDSIDE NURSE NOTIFIED. PT'S DAUGHTER PROVIDED CM WITH 77 PAGES AND ASKED CM TO [facility] TO [facility] FOR FINANCIAL ASSISTANCE REGARDING REHAB SERVICES FOR PT. CM FAXED TO [facility] FINANCIAL ASSISTANCE PROGRAM AT [phone]. PT'S DAUGHTER ADVISED THAT IF APPROVED, PT WILL HAVE TO GO TO [facility]. PT WAS DECLINED DETENTION CARE PLACEMENT AT [facility]; PT AND FAMILY DECLINE TO HAVE FURTHER REFERRALS SENT OUT. FAMILY IS TRYING TO SECURE FINANCIAL ASSISTANCE FOR REHAB SERVICES THROUGH [facility]. CM TO CONTINUE TO FOLLOW AND ASSIST. Sandor Carrasquillo CASE MANAGEMENT DCP- Discharge Planning Updated by [id number]: Sandor Carrasquillo on 06/04/19 11:[address] Patient Name: TROY HAYWOOD Encounter No: [id number] : 1955 Primary Insurance: MEDICAID [facility] DC Date: 06-02-2019 Planned Disposition: Nursing Facility [facility] External Planned Provider: WAITING FAMILY DECISION DCP follow-up note: CM RECEIVED CALL FROM ANNIE OF [facility] WHO ADVISED CM THAT PT HAS BEEN FIANCIALLY DENIED FOR PLACEMENT. CM SPOKE TO PT IN ROOM WHO ADVISED THAT SHE UNDERSTOOD THEY WERE JUST GOING TO LEAVE HER LAYING IN BED FOR A MONTH AND NOT GIVE HER ANY REHAB SERVICES. CM EXPLAINED THAT MEDICAID DOES NOT PAY FOR REHAB SERVICES, ONLY ORDNANCE TRUCK INSTALLATION MECHANIC CARE AND PT WOULD RECEIVE WHAT THEY CALL "RESTORATIVE CARE" FROM STAFF AT ANY INTERMEDIATE, NOT THERAPY SERVICES. PT STATES SHE IS NOW ABLE TO STAND UP WITH THERAPY HERE. CM EXPLAINED THAT PT IS GETTING 8 TO 16 MINUTES OF THERAPY PER DAY AND THAT ALTHOUGH CM WAS HAPPY WITH PROGRESSION, PT IS MEDICALLY STABLE TO LEAVE THE HOSPITAL AND THAT SHE WOULD RECEIVE MORE THERAPY AT HOME WITH HOME HEALTH THAN IN THIS ACUTE HOSPITAL SETTING. PT STATES SHE IS NOT SURE WHAT HAPPENED, THAT CHEPE IS TAKING CARE OF THIS FOR HER AND THAT CHEPE WILL BE TO THE HOSPITAL IN A LITTLE WHILE TO SPEAK TO CM; PT BELIVES THAT CHEPE IS AGAIN WORKING ON TRYING TO GET TREY REHAB CARE THROUGH THE [facility] PROGRAM. PT HAS BEEN FINANCIALLY DECLINED FOR DETENTION CARE PLACEMENT BY [facility]. PT DEFERRING PLANNING TO HER DAUGHTER, CHEPE. CM WAITING FAMILY TO ARRIVE TO DISCUSS FURTHER DISCHARGE PLANNING. ROSANNA Montaño DCP- Discharge Planning Updated by [id number]: Sandor Carrasquillo on 06/03/19 7:[address] Patient Name: TROY HAYWOOD Encounter No: [id number] : 1955 Primary Insurance: MEDICAID [place] Anticipated DC Date: 06-02-2019 Planned Disposition: Nursing Facility YUN Cert External Planned Provider: [facility] DETENTION [facility] MEDICAID BED DISCHARGE PLANNING NOTE: CM FAXED REFERRAL UPDATE TO [facility] AT [phone]. CM WAITING ADMISSION [facility]MINATION FROM [facility] FOR [facility]. WAITING FAMILY TO PROVIDE FINANCIAL INFORMATION FOR ORDNANCE TRUCK INSTALLATION MECHANIC CARE MEDICAID APPLICATION TO FACILITY. ROSANNA Montaño DCP- Discharge Planning Updated by [id number]: Sandor Carrasquillo on 06/02/19 3:[address] Patient Name: TROY HAYWOOD Encounter No: [id number] : 1955 Primary Insurance: MEDICAID [place] Anticipated DC Date: 06-02-2019 Planned Disposition: Nursing Facility [facility]UN Cert External Planned Provider: [facility] TERM [facility] MEDICAID BED DCP follow-up note: CM FAXED REFERRAL UPDATE TO [facility] AT [phone]. CM WAITING ADMISSION DETERMINATION FROM [facility] FOR [facility]. Sandor Carrasquillo CASE MANAGEMENT Appended by Sandor Carrasquillo on 06/02/2019 16:50 SAP BUSINESS INTELLIGENCE CONSULTANT: CM RECEIVED CALL FROM LUIS OF [facility], , THEY RECEIVED THE UPDATE BY FAX AND WILL CONTACT FAMILY REGARDING FINANCIALS. [facility] REPORTS THEY ARE STILL WAITING ON NURSING TO ACCEPT FOR DETENTION CARE AND WILL ALSO NEED FINANCIAL CLEARANCE TO ENTER THE FACILITY. CM WAITING ADMISSION DETERMINATION FROM [facility] FOR [facility]ION C[facility]. [facility] CONTACTING FAMILY TO ASSIST WITH FINANCIAL INFORMATION FOR ORDNANCE TRUCK INSTALLATION MECHANIC CARE MEDICAID APPLICATION. ROSANNA Montaño DCP- Discharge Planning Updated by [id number]: Sandor Carrasquillo on 06/01/19 4:[address] Patient Name: TROY HAYWOOD Encounter No: [id number] : 1955 Primary Insurance: MEDICAID [place] Anticipated DC Date: 06-02-2019 Planned Disposition: Nursing Facility YUN Cert External Planned Provider: [facility] TERM [facility]ARE MEDICAID BED DCP follow-up note: CM MET WITH PT AND DAUGHTER HOUSTON, WHO HAS MADE IT FROM [place]. UPDATE PROVIDED. CM CALLED [facility], DALE INFORMED CM THAT REFERRAL FROM CM AND [facility] WAS RECEIVED, STAFF IN MEETING TODAY AND THEY WILL FINISH ADMISSION REVIEW TOMORROW, 06-02-19. CM NOTIFIED PT AND DAUGHTER IN ROOM. CM WAITING ADMISSION DETERMINATION FROM [facility] FOR DETENTION CARE. Sandor Carrasquillo, CASE MANAGEMENT DCP- Discharge Planning Updated by [id number]: Sandor Carrasquillo on 05/31/19 3:[address] Patient Name: TROY HAYWOOD Encounter No: [id number] : 1955 Primary Insurance: MEDICAID [place] Anticipated DC Date: 06-01-2019 Planned Disposition: Nursing Facility [facility] Cert External Planned Provider: [facility] TERM [facility]ARE MEDICAID BED DCP follow-up note: AFTER SEVERAL VISITS WITH PT IN ROOM, PHONE CALLS WITH DAUGHTERS, [facility] AND [facility], PT DECIDED TO CONSENT TO 30 DAYS OF DETENTION CARE AT [facility] AFTER PT'S DAUGTHERS, WITH AIDE [facility], LOCATED [facility] WHO WILL CONSIDER PT FOR CARE. PT SIGNED CHOICE. CM FAXED REFERRAL INFORMATION TO [facility] AT [phone]. CM WAITING ADMISSION DETERMINATION FROM [facility] FOR ORDNANCE TRUCK INSTALLATION MECHANIC CARE. Sandor Carrasquillo, CASE MANAGEMENT DCP- Discharge Planning Updated by [id number]: Sandor Carrasquillo on 05/28/19 3:[address] Patient Name: TROY HAYWOOD Encounter No: [id number] : 1955 Primary Insurance: MEDICAID [place] Anticipated DC Date: 06-02-2019 Planned Disposition: Home with [facility] External Planned Provider: [facility] DCP follow-up note: CM RECEIVED CALL FROM PT'S DAUGHTER, CHEPE, WHO VERIFIED THAT SHE WILL COME NEXT WEEK TO STAY WITH PT FOR TWO OR THREE WEEKS TO CARE FOR PT AT HOME. CHEPE WILL DISCUSS WITH HER MOTHER THAT SHE WILL HAVE TO BE ABLE TO STAND AND TRANSFER FOR CHEPE TO CARE FOR HER. CM REVIEWED THERAPY NOTES TO PRESENT. 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 PT HAS BEDSIDE COMMODE AND WHEELCHAIR AT HOME. CHEPE REPORTS NEED OF [facility] RESUMPTION. CHEPE WILL DISCUSS WITH PT AND TRY TO MOTIVATE HER TO MEET THERAPY GOALS PRIOR TO ARRIVAL ON NEXT FRIDAY OR FRIDAY. PT'S DAUGHTER PLANS TO TAKE PT HOME NEXT FRIDAY OR FRIDAY, THEY WILL NEED [facility] RESUMPTION, DENIES FURTHER NEEDS. CM TO FOLLOW AND ASSIST NEEDED. Sandor Carrasquillo, CASE MANAGEMENT DCP- Discharge Planning Updated by [id number]: Sandor Carrasquillo on 05/28/19 2:[address] Patient Name: TROY HAYWOOD Encounter No: [id number] : 1955 Primary Insurance: MEDICAID [place] Anticipated DC Date: Planned Disposition: Nursing Facility [facility]UN Cert External Planned Provider: TO BE DETERMINED DCP follow-up note: CM SPOKE TO [facility], SHE INFORMED CM THAT UPDATES HAVE BEEN RECEIVED, PT IS NOT MAKING ENOUGH PROGRESS WITH THERAPY THAT THEY DO NOT BELIEVE THAT PT WILL BE ABLE TO ACHIEVE THERAPY GOALS IN THE REMAINING 10 DAYS OF ACUTE DAYS THAT PT HAS REMAINING. CM NOTIFIED PT AND PROVIDED PT WITH NURSING FACILITY LISTING OF ALL AVAILABLE FACILITIES WITHIN [address] [place]. PT WILL SPEAK TO HER DAUGHTER AND NOTIFY CM OF HER CHOICES. CM CALLED [facility], , TWICE; AUTOMATED MESSAGE INFORMED CM THAT THE NUMBER WAS RESTRICTED OR CURRENTLY UNAVAILABLE. CM WAITING PT AND FAMILY TO PROVIDE NURSING FACILITY CHOICES FOR ORDNANCE TRUCK INSTALLATION MECHANIC CARE. Sandor Carrasquillo, CASE MANAGEMENT Appended by Sandor Carrasquillo on 05/28/2019 12:07 CDT: CM SPOKE TO PT IN ROOM, NOTIFIED PT THAT CM TRIED AND COULD NOT REACH DAUGHTER HOUSTON VIA PHONE. PT REPORTS SHE SPOKE TO HOUSTON WHO TOLD HER THAT [facility] WILL NOT TAKE HER DUE TO WEIGHT; PT'S DAUGHTER TOLD PT THAT [facility] PROBABLY WILL NOT TAKE HER. PT REPORTS THERE IS ONE IN [place] THAT MIGHT CONSIDER HER. CM OFFERED CHOICE FORM FOR SIGNATURE SO THAT CM COULD SEND REFERRALS AND BEGIN CALLING TO FIND PLACEMENT. PT REFUSED AND STATES SHE HAS A DAUGHTER, CHEPE, WHO IS A REGISTERED NURSE, THAT MAY BE COMING TO TAKE CARE OF PT AT HOME. PT'S DAUGHTER HOUSTON IS CALLING DAUGHTER CHEPE TO DISCUSS THE OPTION. PT STATES SHE WILL LET CM KNOW THE OUTCOME AND IF SHE WANTS CM TO EXPLORE INTERMEDIATE CARE FOR HER. CM WAITING PT AND FAMILY TO PROVIDE NURSING FACILITY CHOICES AND FOR PT TO SIGN CONSENT FOR INTERMEDIATE PLACEMENT. PT IS NOW HOPEFUL THAT HER DAUGHTER WHO IS A REGISTERED NURSE WILL COME AND STAY WITH PT AND TAKE CARE OF HER AT HOME. SANDOR CARRASQUILLO, CASE MANAGEMENT Appended by Sandor Carrasquillo on 05/28/2019 14:27 CDT: CM RECEIVED MESSAGE THAT PT WANTS TO SEE CM. CM MET WITH PT IN ROOM WHO INFORMED CM THAT SHE HIS NOT GOING TO A INTERMEDIATE, THAT HER DAUGHTER, CHEPE, WHO IS A NURSE, WILL BE HERE NEXT FRIDAY TO TAKE HER HOME AND WILL TAKE CARE OF PT AT HOME. PT ASKED FOR [facility]ION. CM DISCUSSED POSSIBLE NEED OF DEBORAH LIFT AND ASKED ABOUT ADDITIONAL EQUIPMENT. PT THINKS BY NEXT WEEK, SHE WILL BE ABLE TO TRANSFER WITHOUT AIDE OF LIFT DEVICE. CM NOTIFIED DR. FREEDMAN WHO INFORMED CM THAT HE WILL ORDER BLOOD GAS ON FRIDAY TO DETERMINE RESPIRATORY DISCHARGE NEEDS AT THAT TIME. PT HAS SIGNED RIGHT OF CHOICE FOR [facility] ALREADY. PT REPORTS HER DAUGHTER, WHO IS A REGISTERED NURSE, WILL BE HERE FRIDAY OF NEXT WEEK TO TAKE CARE OF PT AT HOME. PT PLANS TO DISCHARGE HOME WITH FAMILY AND [facility]. CM TO FOLLOW AND ASSIST NEEDED. ROSANNA MONTAÑO DCP- Discharge Planning Updated by [id number]: Sandor Carrasquillo on 05/28/19 7:[address] Patient Name: TROY HAYWOOD Encounter No: [id number] : 1955 Primary Insurance: MEDICAID [place] Anticipated DC Date: Planned Disposition: Inpatient Rehab External Planned Provider: [facility] DCP follow-up note: CM FAXED REFERRAL UPDATE TO [facility] AT [phone]. CM WAITING ADMISSION DETERMINATION FROM [facility] IN [place]. ROSANNA Montaño DCP- Discharge Planning Updated by [id number]: Sandor Carrasquillo on 05/27/19 2:[address] Patient Name: TROY HAYWOOD Encounter No: [id number] : 1955 Primary Insurance: MEDICAID [place] Anticipated DC Date: Planned Disposition: Inpatient Rehab External Planned Provider: [facility] DCP follow-up note: CM FAXED REFERRAL UPDATE TO [facility] AT [phone]. CM WAITING ADMISSION DETERMINATION FROM [facility] IN [place]. Sandor Carrasquillo, CASE MANAGEMENT Appended by Sandor Carrasquillo on 05/27/2019 14:41 CDT: CM CALLED [facility], , LEFT MESSAGE ASKING FOR UPDATE ON REFERRAL AND TO KNOW IF THEY ARE STILL CONSIDERING PT FOR REHAB. CM WAITING ADMISSION DETERMINATION FROM [facility] IN [place]. Sandor Carrasquillo, CASE MANAGEMENT DCP- Discharge Planning Updated by [id number]: Jesica Cartagena on 05/26/19 4:[address] Patient requested Trapeze bar to allow her to sit up in hospital bed. CM spoke Dr. Lawson and obtained approval for Trapeze bar. CM notified Radha in materials management of request for Trapeze bar. CM completed and gave Radha the order form for the Trapeze bar. Trapeze bar will be delivered. CM notified patient's CM, Christiano Carrasquillo, on status of Trapeze bar. DCP- Discharge Planning Updated by [id number]: Sandor Carrasuqillo on 05/26/19 3:[address] Patient Name: TROY HAYWOOD Encounter No: [id number] : 1955 Primary Insurance: MEDICAID [place] Anticipated DC Date: Planned Disposition: Inpatient Rehab External Planned Provider: [facility] DCP follow-up note: CM SPOKE TO PT'S DAUGHTER VIA PHONE, HOUSTON SALGADO, . CM OBTAINED PERMISSION FROM PT TO DISCUSS CARE, TREATMENT AND DISCHARGE PLANNING WITH HOUSTON. HOUSTON INFORMED CM THAT PT WAS IN REHAB AT [facility] LAST YEAR AND THEY WANT REFERRED TO [facility] AGAIN. CM DISCUSSED PT'S VERY LOW LEVEL OF PHYSICAL CONDITIONING. PT'S DAUGHTER FEELS THAT PT CAN PARTICIPATE WITH THERAPY WITH GOAL TO RETURN HOME PREVIOUS WITH ABILITY TO TRANSFER TO [facility] AND HOME HEALTH FOR CONTINUED HOME SERVICES. HOUSTON VERIFIED THAT PT HAS NO ADULTS ABLE TO LIVE WITH AND ASSIST PT AT HOME AT THIS TIME. HOUSTON ASKED ABOUT [facility] REH[facility] SERVICES THAT MAY TAKE PT AT NO COSTS DUE TO INCOME. CM INFORMED HOUSTON THAT CM WAS NOT FAMILIAR WITH ANY OF THESE PROGRAMS. HOUSTON WOULD LIKE TO HAVE PT EVALUATED FOR REHAB AT [facility] PRIOR TO ANY CONSIDERATION OF INTERMEDIATE PLACEMENT PT WILL NOT GET THERAPY THERE. CM SPOKE TO PT WHO IS IN AGREEMENT WITH PLAN. CM CALLED [facility], , NOTIFIED OF REHAB REQUEST; PT HAS ONLY 24 ACUTE DAYS THAT STARTED IN JANUARY, IT DEPENDS ON HOW MANY HAVE BEEN ALREADY USED, PT'S CONDITION AND NEEDS THAT WOULD HAVE TO BE MET IN THE REMAINING DAYS THAT PT HAS TO USE FOR REHAB . CM FAXED REFERRALINFORMATION TO [facility] WITH CURRENT MAR AT [phone]. CM WAITING ADMISSION DETERMINATION FROM [facility] IN [place]. Sandor Carrasquillo, CASE MANAGEMENT Appended by Sandor Carrasquillo on 05/26/2019 15:24 CDT: CM MET WITH PT, GRANDDAUGHTER, DAUGHTER HOUSTON VIA PHONE WITH CM SENIOR TELECOMMUNICATIONS ENGINEER, UNIT NURSE SUPERVISOR SHIPPING, REPIRATORY THERAPIST AND SENIOR TELECOMMUNICATIONS ENGINEER OF THERAPY SERVICES REGARDING DISCHARGE PLANNING. CONCERNS OF PT'S PLAN TO GO HOME IN CURRENT CONDITION DISCUSSED. PT AND DAUGHTER HAVE ALREADY ASKED FOR REFERRAL TO [facility], CM HAS SENT IT AND WAITING DETERMINATION. PLAN "B" WAS AGREED TO BE NURSING FACILITY IF NOT ACCEPTED TO [facility] AND THAT CM WOULD ATTEMPT TO FIND ONE THAT MAY DONATE REHAB SERVICES. PT'S DAUGHTER IS RESEARCHING ZEKE FUNDING FROM [facility] FOR REHAB SERVICES. CM WAITING ADMISSION DETERMINATION FROM [facility] IN [place]. Sandor Carrasquillo, CASE MANAGEMENT DCP- Discharge Planning Updated by [id number]: Sandor Carrasquillo on 05/25/19 2:[address] Patient Name: TROY HAYWOOD Encounter No: [id number] : 1955 Primary Insurance: MEDICAID [facility] Date: Planned Disposition: Home HEALTH External Planned Provider: [facility] ON [facility], VISITING [facility]UR[facility]ES OF [facility] follow-up note: CM MET WITH PT IN ROOM TO DISCUSS DISCHARGE NEEDS AND PLANNING. CM DISCUSSED AVAILABILITY OF HOME HEALTH, REHAB SERVICES AND MEDICAL EQUIPMENT. PT REFUSES ASSISTED FACILITY PLACEMENT. PT STATES PLAN TO RETURN HOME. 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 PT WAS ABLE TO AMBULATE SMALL DISTANCES AND TRANSFER SELF FROM BED TO ELECTRIC WHEELCHAIR AT HOME. PT THINKS SHE IS GOING TO BE ABLE TO TRANSFER SELF TO GO BACK HOME. PT WANTS HOME HEALTH RESUMED TO GO HOME. CM EXPRESSED CONCERN OF PT'S CURRENT LEVEL OF FUNCTIONING AND RETURNING HOME. PT DENIES HAVING FRIENDS OR FAMILY TO ASSIST WITH HER CARE AT HOME BUT IS NOT GOING TO A INTERMEDIATE. PT THINKS SHE WILL NEED AN AMBULANCE FOR TRANSPORT HOME HER ELECTRIC WHEELCHAIR IS THERE. CM EXPLAINED TO PT THAT SHE WILL NEED TO DEMONSTRATE WITH THERAPY THE ABILITY TO TRANSFER AND SIT IN CHAIR FOR DISCHARGE. PT STATED UNDRESTANDING. CHOICE FOR [facility] AGENCY ON [facility] VISITING NURSES HOME HEALTH SIGNED. 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 PT REFUSED NURSING FACILITY PLACEMENT. PT WILL NEED TO DEMONSTRATE ABILITY TO TRANSFER AND SIT IN CHAIR FOR DISCHARGE SHE HAS ELECTRIC WHEELCHAIR AT HOME. CM TO ARRANGE HOME HEALTH RESUMPTION WITH [facility] AGENCY ON AGING VISITING NURSES AGENCY IN [place] FOR DISCHARGE HOME. CM TO CONTINUE TO FOLLOW AND ASSIST NEEDED. Sandor Carrasquillo, CASE MANAGEMENT DCP- Discharge Planning Updated by [id number]: Aleisha Monroe on 05/19/19 7:[address] Patient Name: TROY HAYWOOD Admission Status: ER Accout number: [id number] Admission Date: 05-14-2019 : 1955 Admission Diagnosis: Attending: FABIO PINEDA Current LOS: 5 Anticipated DC Date: Planned Disposition: Home or Self Care Primary Insurance: MEDICAID [place] Discharge Planning Comments: CM met with patient and daughter to complete initial dc planning assessment. Patient recently extubated earlier today. CM educated patient on the CM role and verbal consent given by patient to complete assessment. Patient lives at home with her two young grand-daughters where she is independent with her care. At discharge patient plans to return home and feels this is a safe discharge. CM discussed availability of home health, rehab services, and medical equipment. Patient has Home 02 and HH with unknown providers. CM will f/u with patient @ later date to see if she is able to give providers. Patient denied known discharge needs at this time. CM will continue to follow and will assist as needed with dc plans/needs. Electrophonic Engineer: Aleisha Monroe DCPIA - Discharge Planning Initial Assessment Updated by [id number]: Sandor Carrasquillo on 05/28/19 9:36 am * How many steps to enter\\exit or inside your home? * PCP uncertain ? * [facility] * Preadmission Environment Home with Family * ADLs Independent * Other Equipment HOME 02, WALKER, FRANCOISE, BSC, [place] * List name and contact numbers for known caregivers / representatives who currently or will assist patient after discharge: CHEPE SUN - DAUGHTER- [phone] HOUSTON SALGADO, DTR - [phone] * Verbal permission to speak to the caregivers and representatives has been obtained from the patient. Yes * Community resources currently utilized Home Health * Please name any agencies selected above. [facility] * Additional services required to return to the preadmission environment? No * Can the patient safely return to the preadmission environment? Yes * Has this patient been hospitalized within the prior 30 days at any hospital? No Coverage Notice Reviewer: NAYLA Carrasquillo Notice Issued Date-Time: 06/10/2019 16:25 Notice Type: Patient Choice Letter Notice Delivered To: Patient Relationship to Patient: Licensing Representative Name: Delivery Method: HAND - Hand Delivered Marry Days: Prior Verbal Notification: Recipient Understood Notice: Yes Recipient Signature: Yes Med Rec Note Co-signed by Attending: Coverage Notice Comment: [employer] Reviewer: [email or web address] Carrasquillo Notice Issued Date-Time: 06/09/2019 9:55 Notice Type: Patient Choice Letter Notice Delivered To: Patient Relationship to Patient: Licensing Representative Name: Delivery Method: HAND - Hand Delivered Marry Days: Prior Verbal Notification: Recipient Understood Notice: Yes Recipient Signature: Yes Med Rec Note Co-signed by Attending: Coverage Notice Comment: [facility] OR ANY ACCEPTING ASSISTED FACLITY Reviewer: NAYLA Carrasquillo Notice Issued Date-Time: 05/31/2019 14:50 Notice Type: Patient Choice Letter Notice Delivered To: Patient Relationship to Patient: Licensing Representative Name: Delivery Method: HAND - Hand Delivered Marry Days: Prior Verbal Notification: Recipient Understood Notice: Yes Recipient Signature: Yes Med Rec Note Co-signed by Attending: Coverage Notice Comment: [facility] Reviewer: [email or web address] Carrasquillo Notice Issued Date-Time: 05/25/2019 14:05 Notice Type: Patient Choice Letter Notice Delivered To: Patient Relationship to Patient: Licensing Representative Name: Delivery Method: HAND - Hand Delivered Marry Days: Prior Verbal Notification: Recipient Understood Notice: Yes Recipient Signature: Yes Med Rec Note Co-signed by Attending: Coverage Notice Comment: [facility]- VISITING NURSES [facility]) Last DP export: 06/15/19 8:20 Patient Name: TROY HAYWOOD Page [id number] at 0927 All edits/amendments must be made on the electronic document DICTATION DATE: 06/15/19925 ESCORT SERVICE ATTENDANT: MISHEL 06/15/19925 RPT#: [id number] DC DATE: STATUS: ADM IN [facility] [address] [place] [address] END OF REPORT
[2019-06-15 09:31] VITALS: BP 102/48
[2019-06-15 12:00] VITALS: BP 100/45
--- NOTE | 2019-06-15 15:06 | NUR ---
I have reviewed this patient and I concur with the Shift Assessment completed by the Licensed Practical Nurse today this shift.
--- NOTE | 2019-06-15 15:30 | NUR ---
Nutrition Follow-up: Pt reports good/fair appetite/PO intake. Getting tired of food selection 2/2 extended hospital stay. Requesting more finely chopped meats; ST signed off. Diet: Renal, Mech Soft (Chopped Meats with gravy) Wt: 487# Last BM: 06/04 Labs noted: K+ 3.6 Meds noted: Lasix, MagOx, Colace -Changing diet to cardiac; K+ & PO4 wnl. Will monitor labs. -Requesting finely chopped meats. -[place] food preferences within diet restrictions. -RD following.
[2019-06-15 16:00] VITALS: BP 121/55
--- NOTE | 2019-06-15 16:36 | MORECARE ---
CASE MANAGEMENT DISCHARGE SUMMARY PATIENT: TROY HAYWOOD UNIT: [id number] ADM DATE: 05/14/19 AGE: 64 : 57 SEX: F ROOM/BED: D.2140 AUTHOR: DAYDAY,DOC PHYSICIAN: REFERRING PHYSICIAN: FABIO PINEDA MD DATE OF SERVICE: 06/15/19 Discharge Plan Patient Name: TROY HAYWOOD Facility: [facility]:[place] : 1955 Planned Disposition: Nursing Facility YUN Cert Anticipated Discharge Date: 06/11/19 Discharge Date: Expected LOS: 28 Initial Reviewer: [id number] Initial Review Date: 05/19/2019 Generated: 06/15/19 5:35 pm Comments DCP- Discharge Planning Updated by [id number]: Sandor Carrasquillo on 06/15/19 3:[address] Patient Name: TROY HAYWOOD Encounter No: [id number] : 1955 Primary Insurance: MEDICAID [place] Anticipated DC Date: 06-11-2019 Planned Disposition: Nursing Facility YUN Cert External Planned Provider: FIRST ACCEPTING DCP follow-up note: CHRISTOPHER SENT MESSAGE TO TROY MIMS, , OF [facility] ASKING FOR USP CARE PLACEMENT ASSISTANCE WITH REHAB IF POSSIBLE. CHRISTOPHER FAXED REFERRAL TO TROY AT [phone]. CHRISTOPHER CALLED [facility], , HE HAS NOT BEEN ABLE TO GET A DETERMINATION ON TREY AND CANNOT LOCATE THE PERSON IN CORPORATE WHO HAS PT'S TREY APPLICATION. HE WILL CONTINUE TO TRY TO LOCATE WHO IS PROCESSING THE APPLICATION HE HAS NOT SEEN IT OR HEARD ANY DETERMINATION. CHRISTOPHER FAXED REFERRAL UDP[place] TO [facility] AT [phone]. M FAXED UPDATE TO [facility] AT [phone]. CHAR INFORMED CHRISTOPHER THAT SHE HAS NO BERIATRIC USP BED YET BUT IS HOPEUL TO HAVE AN OPENING "SOON". ASKED BY PT'S DAUGHTER, CHRISTOPHER CALLED AND SPOKE TO RUT, , OF [facility] AND REQUESTED PRIVATE PAY DOWN PAYMENT AND MONTHLY PAYMENT AMOUNTS FOR REHAB AT [facility]. CM FAXED REFERRAL TO [facility] AT [phone]. - CM WAITING ADMISSION DETERMINATION FROM [facility] FOR USP CARE PLACEMENT IN ONE OF HER AFFILIATED NURSING HOMES. - CM WAITING RETURN CALL FROM [facility] IN[facility] IN [place] REGARDING TREY REHAB. - CM WAITING DETERMINATION FROM [facility]OY [facility] FOR [facility]AMEWELL OPERATOR CARE PLACEMENT IN ONE OF HER AFFILIATED NURSING HOMES. Sandor Carrasquillo, CASE MANAGEMENT Appended by Sandor Carrasquillo on 06/15/2019 16:28 NET LEAD DEVELOPER: CM FAXED [facility] TREY APPLICATION TO [facility] CM SPOKE TO TROY OF [facility] WHO EXPLAINED SHE IS CONTINUING TO LOOK FOR USP PLACEMENT; THE OBSTACLE IS THE COSTS OF RENTING BIPAP AND OTHER BERIATRIC EQUIPMENT. CM SPOKE TO RUT OF [facility] IN[facility], THEY WILL NOT CONSIDER PATIENT FOR REHAB ON PRIVATE PAY BASIS AND WOULD DENY PATIENT REGARDLESS DUE TO HER "ENTIRE SITUATION". CM NOTIFIED PT AND DAUGHTER IN ROOM OF PROGRESS AND LACK THEREOF. CM ASKED TO SEND REFERRALS TO OTHER NURSING FACILITIES, PT REFUSED STATING SHE WANTS TO WAIT FOR DEFINITE ANSWER FROM [facility] FOR TREY REHAB SERVICES. - CM WAITING ADMISSION DETERMINATION FROM [facility] FOR USP CARE PLACEMENT IN ONE OF HER AFFILIATED [facility] [place] [place] HOMES. - CM WAITING RETURN CALL FROM [facility] IN[facility] RE[facility] IN [place] REGARDING TREY REHAB. - CM WAITING DETERMINATION FROM [facility]OY [facility] FOR [facility]AMEWELL OPERATOR CARE PLACEMENT IN ONE OF HER AFFILIATED NURSING HOMES. Sandor Carrasquillo, CASE MANAGEMENT DCP- Discharge Planning Updated by [id number]: Sandor Carrasquillo on 06/11/19 3:[address] Patient Name: TROY HAYWOOD Encounter No: [id number] : 1955 Primary Insurance: MEDICAID [place] Anticipated DC Date: 06-11-2019 Planned Disposition: Nursing Facility YUN Cert External Planned Provider: : DCP follow-up note: CM RECEIVED MESSAGE FROM TROY OF [facility], THEY WILL NOT ACCEPT PT. CM FAXED REFERRAL UDPATE TO [facility] AT [phone]. CM FAXED UPDATE TO [facility] AT [phone]. CHAR INFORMED CM THAT SHE ANTICIPATES A BERIATRIC USP BED OPENING "SOON". CM NOTIFIED PT AND DAUGHTER OF PROGRESS / LACK THEREOF IN ROOM. - CM WAITING ADMISSION DETERMINATION FROM [facility] FOR USP CARE PLACEMENT IN ONE OF HER AFFILIATED NURSING HOMES. - CM WAITING RETURN CALL FROM [facility] INPAT[facility] IN [place] REGARDING TREY REHAB. ROSANNA Monroe DCP- Discharge Planning Updated by [id number]: Sandor Carrasquillo on 06/10/19 3:[address] Patient Name: TROY HAYWOOD Encounter No: [id number] : 1955 Primary Insurance: MEDICAID [place] Anticipated DC Date: 06-11-2019 Planned Disposition: Nursing Facility YUN Cert External Planned Provider: FIRST ACCEPTING FACILITY DCP follow-up note: - CM RECEIVED CALL FROM [facility], THEY HAVE NOT AVAILABILITY FOR TREY REHAB BED. CM RECEIVED CALL FROM MIT[facility] OF [facility] IN [facility], THEY HAVE NOT RECEIVED TREY APPLICATION AND HAVE NO CURRENT BEDS BUT WOULD CONSIDER PT. CM RETURNED CALL TO [facility] AT [facility], , INFORMED THAT TREY AP[facility], TELEPHONE CONTACT [phone]. HETAL ASKED FOR REFERRAL TO BE SENT AND HE WILL SCREEN FOR ADMISSION. CM FAXED REFERRAL TO [facility] AT [phone]. CM NOTIFIED PT AND DAUGHTER OF PROGRESS IN ROOM. PT AND DAUGHTER ASKED FOR CM TO SEND REFERRAL TO [facility] IN [place]. CHOICE SIGNED. CM FAXED REFERRAL TO [facility] AT [phone]. - CM WAITING ADMISSION DETERMINATION FROM [facility] FOR GAMEWELL OPERATOR CARE PLACEMENT IN ONE OF HER AFFILIATED [facility]. - CM WAITING RETURN CALL FROM [facility] IN[facility] IN [place] REGARDING TREY REHAB. - CM WAITING ADMISSION DETERMINATION FROM [facility]. ROSANNA Monroe DCP- Discharge Planning Updated by [id number]: Sandor Carrasquillo on 06/09/19 3:[address] Patient Name: TROY HAYWOOD Encounter No: [id number] : 1955 Primary Insurance: MEDICAID [place] Anticipated DC Date: 06-10-2019 Planned Disposition: Nursing Facility YUN Cert External Planned Provider: FIRST ACCEPTING FACILITY DCP follow-up note: CM SPOKE TO PT AND DAUGHTER, CHEPE, THEY WILL LET CM SEEK USP PLACEMENT FOR THEM TO CONSIDER BUT STILL DO NOT WANT [facility]ARE IF THEY CAN OBTAIN REHAB THROUGH THE [facility]. DAUGHTER ADVISED SHE HAS CONFIRMED RECEIPT OF THE APPLICATION FAXED TO THE [facility] AND IS IN PROCESS OF REVIEW. DAUGHTER ASKED CM TO CHECK INTO REHAB'S THAT MAY HAVE [facility] AFFILIATION. CM CALLED [facility], , REQUESTED ASSISTANCE IN USP CARE PLACEMENT WITH INTENT TO RETURN HOME. CHAR STATES THAT SHE MAY HAVE HOME'S WILL ACCEPT BARIATRIC PATIENT AND WILL ATTEMPT PLACEMENT. CHAR WILL MEET WITH PT LATER TODAY. CM FAXED REFERRAL TO [facility] AT [phone]. CM SPOKE TO [facility]OY [facility], TROY INFORMED CM THAT SHE HAS NO HOMES IN HER GROUP THAT MAY ASSIST WITH PLACEMENT. CM CALLED [facility], WAS ADVISED BY RUT THAT THEY WILL NOT CONSIDER FOR TREY CARE, THEY ARE NOT AFFILIATED WITH [facility]. CM CALLED [facility], , SPOKE TO CHELO WHO INFORMED CM THAT THEY ARE NOT AFFILIATED WITH [facility] BUT WILL CONSIDER PT FOR TREY REHAB. CM FAXED REFERRAL TO [facility] AT [phone]. CM CALLED [facility] IN [place], , SPOKE TO DHEERAJ WHO REPORTS THEY HAVE NO OPEN REHAB BEDS AND HAVE NO PROJECTED DISCHARGES SOON. THEY DO NOT HAVE WEIGHT LIMITS. DHEERAJ DID NOT WANT REFERRAL FAXED, SHE WILL REPORT TO BREN WHO WILL CHECK WITH THE [facility] REGARDING APPLICATION STATUS AND CALL CM TOMORROW, 06-10-19. CM NOTIFIED PT IN ROOM OF PROGRESS. PT STATES SHE MAY BE ABLE TO TRANSFER SELF AND GO HOME BEFORE CM FINDS REHAB FOR HER. - CM WAITING ADMISSION DETERMINATION FROM [facility] FOR USP CARE PLACEMENT IN ONE OF HER AFFILIATED NURSING HOMES. - CM WAITING ADMISSION DETERMINATION FROM [facility] FOR TREY REHAB BED. - CM WAITING RETURN CALL FROM [facility] IN [place] REGARDING TREY REHAB. Sandor Carrasquillo CASE MANAGEMENT DCP- Discharge Planning Updated by [id number]: Sandor Carrasquillo on 06/04/19 4:[address] Patient Name: TROY HAYWOOD Encounter No: [id number] : 1955 Primary Insurance: MEDICAID [place] Anticipated DC Date: 06-02-2019 Planned Disposition: Nursing Facility YUN Cert External Planned Provider: TO BE DETERMINED DCP follow-up note: CM SPOKE TO PT AND DAUGHTER CHEPE, IN ROOM. PT IS AND FOR PAST 10 YEARS, BUT NOT LEGALLY. THEY CANNOT QUALIFY FOR MEDICAID FOR USP CARE DUE TO NOT HAVING SPOUSE FINANICAL INFORMATION. PT AND DAUGHTER BOTH STATE THAT THEY DO NOT WANT TO PUT PT INTO USP USP CARE WHERE SHE WILL JUST LAY IN THE BED. THEY DO NOT WANT FURTHER USP REFERRALS FAXED OUT. CM DISCUSSED THAT PT IS STABLE FOR DISCHARGE MEDICALLY. PT'S DAUGHTER REPORTS PT IS NOT HAVING BOWEL MOVEMENTS AND THAT THE FECES COMING OUT IS COMING AROUND AN IMPACTION AND NO ONE IS ADDRESSING THIS. CM NOTIFIED TOBY THOMAS WHO PROVIDED ORDERS FOR MEDICATION TO TREAT CONDITION. BEDSIDE NURSE NOTIFIED. PT'S DAUGHTER PROVIDED CM WITH 77 PAGES AND ASKED CM TO FAX TO [facility] FOR FINANCIAL ASSISTANCE REGARDING REHAB SERVICES FOR PT. CM FAXED TO [facility] FINANCIAL ASSISTANCE PROGRAM AT [phone]. PT'S DAUGHTER ADVISED THAT IF APPROVED, PT WILL HAVE TO GO TO A [facility] FOR REHAB. PT WAS DECLINED USP CARE PLACEMENT AT [place]; PT AND FAMILY DECLINE TO HAVE FURTHER REFERRALS SENT OUT. FAMILY IS TRYING TO SECURE FINANCIAL ASSISTANCE FOR REHAB SERVICES THROUGH [facility]. CM TO CONTINUE TO FOLLOW AND ASSIST. Sandor Cararsquillo CASE MANAGEMENT DCP- Discharge Planning Updated by [id number]: Sandor Carrasquillo on 06/04/19 11:[address] Patient Name: TROY HAYWOOD Encounter No: [id number] : 1955 Primary Insurance: MEDICAID [place] Anticipated DC Date: 06-02-2019 Planned Disposition: Nursing Facility YUN Cert External Planned Provider: WAITING FAMILY DECISION DCP follow-up note: CM RECEIVED CALL FROM ANNIE OF [facility] WHO ADVISED CM THAT PT HAS BEEN FIANCIALLY DENIED FOR PLACEMENT. CM SPOKE TO PT IN ROOM WHO ADVISED THAT SHE UNDERSTOOD THEY WERE JUST GOING TO LEAVE HER LAYING IN BED FOR A MONTH AND NOT GIVE HER ANY REHAB SERVICES. CM EXPLAINED THAT MEDICAID DOES NOT PAY FOR REHAB SERVICES, ONLY [facility] OPERATOR CARE AND PT WOULD RECEIVE WHAT THEY CALL "RESTORATIVE CARE" FROM STAFF AT ANY USP, NOT THERAPY SERVICES. PT STATES SHE IS NOW ABLE TO STAND UP WITH THERAPY HERE. CM EXPLAINED THAT PT IS GETTING 8 TO 16 MINUTES OF THERAPY PER DAY AND THAT ALTHOUGH CM WAS HAPPY WITH PROGRESSION, PT IS MEDICALLY STABLE TO LEAVE THE HOSPITAL AND THAT SHE WOULD RECEIVE MORE THERAPY AT HOME WITH HOME HEALTH THAN IN THIS ACUTE HOSPITAL SETTING. PT STATES SHE IS NOT SURE WHAT HAPPENED, THAT CHEPE IS TAKING CARE OF THIS FOR HER AND THAT CHEPE WILL BE TO THE HOSPITAL IN A LITTLE WHILE TO SPEAK TO CM; PT BELIVES THAT CHEPE IS AGAIN WORKING ON TRYING TO GET TREY REHAB CARE THROUGH THE [facility] [facility]. PT HAS BEEN FINANCIALLY DECLINED FOR [facility]PERATOR CARE PLACEMENT [facility]. PT DEFERRING PLANNING TO HER DAUGHTER, CHEPE. CM WAITING FAMILY TO ARRIVE TO DISCUSS FURTHER DISCHARGE PLANNING. Sandor Carrasquillo CASE MANAGEMENT DCP- Discharge Planning Updated by [id number]: Sandor Carrasquillo on 06/03/19 7:[address] Patient Name: TROY HAYWOOD Encounter No: [id number] : 1955 Primary Insurance: MEDICAID [place] Anticipated DC Date: 06-02-2019 Planned Disposition: Nursing Facility YUN Cert External Planned Provider: [facility] USP CARE MEDICAID BED DISCHARGE PLANNING NOTE: CM FAXED REFERRAL UPDATE [facility] AT [phone]. CM WAITING ADMISSION DETERMINATION FROM [facility] FOR GAMEWELL OPERATOR CARE. WAITING FAMILY TO PROVIDE FINANCIAL INFORMATION FOR USP CARE MEDICAID APPLICATION TO FACILITY. Sandor Carrasquillo CASE DEVAUGHN DCP- Discharge Planning Updated by [id number]: Sandor Carrasquillo on 06/02/19 3:[address] Patient Name: TROY HAYWOOD Encounter No: [id number] : 1955 Primary Insurance: MEDICAID [place] Anticipated DC Date: 06-02-2019 Planned Disposition: Nursing Facility YUN Cert External Planned Provider: [facility], G[facility]WELL OPERATOR CARE MEDICAID BED DCP follow-up note: CM FAXED REFERRAL UPDATE TO [facility] AT [phone]. CM WAITING ADMISSION DETERMINATION FROM [facility] FOR USP CARE. Sandor Carrasquillo, CASE MANAGEMENT Appended by Sandor Carrasquillo on 06/02/2019 16:50 NET LEAD DEVELOPER: CM RECEIVED CALL FROM LUIS OF [facility], , THEY RECEIVED THE UPDATE BY FAX AND WILL CONTACT FAMILY REGARDING FINANCIALS. LUIS REPORTS THEY ARE STILL WAITING ON NURSING TO ACCEPT FOR [facility]WE[facility] OPERATOR CARE AND WILL ALSO NEED FINANCIAL CLEARANCE TO ENTER THE FACILITY. CM WAITING ADMISSION DETERMINATION FROM [facility] FOR USP CARE. [place] CONTACTING FAMILY TO ASSIST WITH FINANCIAL INFORMATION FOR GAMEWELL OPERATOR CARE MEDICAID APPLICATION. Sandor Carrasquillo CASE MANAGEMENT DCP- Discharge Planning Updated by [id number]: Sandor Carrasquillo on 06/01/19 4:[address] Patient Name: TROY HAYWOOD Encounter No: [id number] : 1955 Primary Insurance: MEDICAID [place] Anticipated DC Date: 06-02-2019 Planned Disposition: Nursing Facility YUN Cert External Planned Provider: [facility], [facility] MEDICAID BED DCP follow-up note: CM MET WITH PT AND DAUGHTER HOUSTON, WHO HAS MADE IT FROM [place]. UPDATE PROVIDED. CM CALLED [facility], DALE INFORMED CM THAT REFERRAL FROM AND [facility] WAS RECEIVED, STAFF IN MEETING TODAY AND THEY WILL FINISH ADMISSION REVIEW TOMORROW, 06-02-19. CM NOTIFIED PT AND DAUGHTER IN ROOM. CM WAITING ADMISSION DETERMINATION FROM [facility] FOR USP CARE. ROSANNA Monroe MANAGEMENT DCP- Discharge Planning Updated by [id number]: Sandor Carrasquillo on 05/31/19 3:[address] Patient Name: TROY HAYWOOD Encounter No: [id number] : 1955 Primary Insurance: MEDICAID [place] Anticipated DC Date: 06-01-2019 Planned Disposition: Nursing Facility [employer] Cert External Planned Provider: [facility], USP CARE MEDICAID BED DCP follow-up note: AFTER SEVERAL VISITS WITH PT IN ROOM, PHONE CALLS WITH DAUGHTERS, [facility] AND [facility], PT DECIDED TO CONSENT TO 30 DAYS OF USP CARE AT [facility] AFTER PT'S DAUGTHERS, WITH AIDE OF HOME HEALTH, LOCATED [place] WHO WILL CONSIDER PT FOR CARE. PT SIGNED CHOICE. CM FAXED REFERRAL INFORMATION TO [place] AT [phone]. CM WAITING ADMISSION DETERMINATION FROM [facility] AND REHAB FOR [facility]WELL OPERATOR CARE. Sandor Carrasquillo CASE MANAGEMENT DCP- Discharge Planning Updated by [id number]: Sandor Carrasquillo on 05/28/19 3:[address] Patient Name: TROY HAYWOOD Encounter No: [id number] : 1955 Primary Insurance: MEDICAID [place] Anticipated DC Date: 06-02-2019 Planned Disposition: Home with Home Health External Planned Provider: [facility] DCP follow-up note: CM RECEIVED CALL FROM PT'S DAUGHTER, CHEPE, WHO VERIFIED THAT SHE WILL COME NEXT WEEK TO STAY WITH PT FOR TWO OR THREE WEEKS TO CARE FOR PT AT HOME. CHEPE WILL DISCUSS WITH HER MOTHER THAT SHE WILL HAVE TO BE ABLE TO STAND AND TRANSFER FOR CHEPE TO CARE FOR HER. CM REVIEWED THERAPY NOTES TO PRESENT. 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 PT HAS BEDSIDE COMMODE AND WHEELCHAIR AT HOME. CHEPE REPORTS NEED OF [facility]. CHEPE WILL DISCUSS WITH PT AND TRY TO MOTIVATE HER TO MEET THERAPY GOALS PRIOR TO ARRIVAL ON NEXT FRIDAY OR FRIDAY. PT'S DAUGHTER PLANS TO TAKE PT HOME NEXT FRIDAY OR FRIDAY, THEY WILL NEED [facility], DENIES FURTHER NEEDS. CM TO FOLLOW AND ASSIST NEEDED. Sandor Carrasquillo CASE MANAGEMENT DCP- Discharge Planning Updated by [id number]: Sandor Carrasquillo on 05/28/19 2:[address] Patient Name: TROY HAYWOOD Encounter No: [id number] : 1955 Primary Insurance: MEDICAID [place] Anticipated DC Date: Planned Disposition: Nursing Facility [facility] External Planned Provider: TO BE DETERMINED DCP follow-up note: CM SPOKE TO [facility], SHE INFORMED CM THAT UPDATES HAVE BEEN RECEIVED, PT IS NOT MAKING ENOUGH PROGRESS WITH THERAPY THAT THEY DO NOT BELIEVE THAT PT WILL BE ABLE TO ACHIEVE THERAPY GOALS IN THE REMAINING 10 DAYS OF ACUTE DAYS THAT PT HAS REMAINING. CM NOTIFIED PT AND PROVIDED PT WITH NURSING FACILITY LISTING OF ALL AVAILABLE FACILITIES WITHIN [address]. PT WILL SPEAK TO HER DAUGHTER AND NOTIFY CM OF HER CHOICES. CM CALLED [facility], , TWICE; AUTOMATED MESSAGE INFORMED CM THAT THE NUMBER WAS RESTRICTED OR CURRENTLY UNAVAILABLE. CM WAITING PT AND FAMILY TO PROVIDE NURSING FACILITY CHOICES FOR USP CARE. Sandor Carrasquillo, CASE MANAGEMENT Appended by Sandor Carrasquillo on 05/28/2019 12:07 CDT: CM SPOKE TO PT IN ROOM, NOTIFIED PT THAT CM TRIED AND COULD NOT REACH DAUGHTER HOUSTON VIA PHONE. PT REPORTS SHE SPOKE TO [facility] WHO TOLD HER THAT [facility] WILL NOT TAKE HER DUE TO WEIGHT; PT'S DAUGHTER TOLD PT THAT [facility] NOT TAKE HER. PT REPORTS THERE IS ONE IN [place] THAT MIGHT CONSIDER HER. CM OFFERED CHOICE FORM FOR SIGNATURE SO THAT CM COULD SEND REFERRALS AND BEGIN CALLING TO FIND PLACEMENT. PT REFUSED AND STATES SHE HAS A DAUGHTER, CHEPE, WHO IS A REGISTERED NURSE, THAT MAY BE COMING TO TAKE CARE OF PT AT HOME. PT'S DAUGHTER HOUSTON IS CALLING DAUGHTER CHEPE TO DISCUSS THE OPTION. PT STATES SHE WILL LET CM KNOW THE OUTCOME AND IF SHE WANTS CM TO EXPLORE USP CARE FOR HER. CM WAITING PT AND FAMILY TO PROVIDE NURSING FACILITY CHOICES AND FOR PT TO SIGN CONSENT FOR USP PLACEMENT. PT IS NOW HOPEFUL THAT HER DAUGHTER WHO IS A REGISTERED NURSE WILL COME AND STAY WITH PT AND TAKE CARE OF HER AT HOME. SANDOR CARRASQUILLO, CASE MANAGEMENT Appended by Sandor Carrasquillo on 05/28/2019 14:27 CDT: CM RECEIVED MESSAGE THAT PT WANTS TO SEE CM. CM MET WITH PT IN ROOM WHO INFORMED CM THAT SHE HIS NOT GOING TO A USP, THAT HER DAUGHTER, CHEPE, WHO IS A NURSE, WILL BE HERE NEXT FRIDAY TO TAKE HER HOME AND WILL TAKE CARE OF PT AT HOME. PT ASKED FOR [facility]. CM DISCUSSED POSSIBLE NEED OF DEBORAH LIFT AND ASKED ABOUT ADDITIONAL EQUIPMENT. PT THINKS BY NEXT WEEK, SHE WILL BE ABLE TO TRANSFER WITHOUT AIDE OF LIFT DEVICE. CM NOTIFIED DR. FREEDMAN WHO INFORMED CM THAT HE WILL ORDER BLOOD GAS ON FRIDAY TO DETERMINE RESPIRATORY DISCHARGE NEEDS AT THAT TIME. PT HAS SIGNED RIGHT OF CHOICE FOR [facility] ALREAD[facility]. PT REPORTS HER DAUGHTER, WHO IS A REGISTERED NURSE, WILL BE HERE FRIDAY OF NEXT WEEK TO TAKE CARE OF PT AT HOME. PT PLANS TO DISCHARGE HOME WITH FAMILY AND [facility]. CM TO FOLLOW AND ASSIST NEEDED. SANDOR CARRASQUILLO CASE MANAGEMENT DCP- Discharge Planning Updated by [id number]: Sandor Carrasquillo on 05/28/19 7:[address] Patient Name: TROY HAYWOOD Encounter No: [id number] : 1955 Primary Insurance: MEDICAID [place] Anticipated DC Date: Planned Disposition: Inpatient Rehab External Planned Provider: [facility] DCP follow-up note: CM FAXED REFERRAL UPDATE TO [facility] AT [phone]. CM WAITING ADMISSION DETERMINATION FROM [facility] INPAT[facility] IN [place]. ROSANNA Monroe DCP- Discharge Planning Updated by [id number]: Sandor Carrasquillo on 05/27/19 2:[address] Patient Name: TROY HAYWOOD Encounter No: [id number] : 1955 Primary Insurance: MEDICAID [place] Anticipated DC Date: Planned Disposition: Inpatient Rehab External Planned Provider: [facility] DCP follow-up note: CM FAXED REFERRAL UPDATE TO [facility] AT [phone]. CM WAITING ADMISSION DETERMINATION FROM [facility] IN [place]. Sandor Carrasquillo, CASE MANAGEMENT Appended by Sandor Carrasquillo on 05/27/2019 14:41 CDT: CM CALLED RUT OF [facility] / [facility], , LEFT MESSAGE ASKING FOR UPDATE ON REFERRAL AND TO KNOW IF THEY ARE STILL CONSIDERING PT FOR REHAB. CM WAITING ADMISSION DETERMINATION FROM [facility] IN [place]. Sandor Carrasquillo CASE MANAGEMENT DCP- Discharge Planning Updated by [id number]: Jesica Cartagena on 05/26/19 4:[address] Patient requested Trapeze bar to allow her to sit up in hospital bed. CM spoke Dr. Lawson and obtained approval for Trapeze bar. CM notified Radha in materials management of request for Trapeze bar. CM completed and gave Radha the order form for the Trapeze bar. Trapeze bar will be delivered. CM notified patient's CM, Christiano Carrasquillo, on status of Stephanie miles. DCP- Discharge Planning Updated by [id number]: Sandor Carrasquillo on 05/26/19 3:[address] Patient Name: TROY HAYWOOD Encounter No: [id number] : 1955 Primary Insurance: MEDICAID [facility] DC Date: Planned Disposition: Inpatient Rehab External Planned Provider: [facility] DCP follow-up note: CM SPOKE TO PT'S DAUGHTER VIA PHONE, HOUSTON GERMAINBLOOD, . CM OBTAINED PERMISSION FROM PT TO DISCUSS CARE, TREATMENT AND DISCHARGE PLANNING WITH HOUSTON. HOUSTON INFORMED CM THAT PT WAS IN REHAB AT [facility] LAST YEAR AND THEY WANT REFERRED TO [facility] AGAIN. CHRISTOPHER DISCUSSED PT'S VERY LOW LEVEL OF PHYSICAL CONDITIONING. PT'S DAUGHTER FEELS THAT PT CAN PARTICIPATE WITH THERAPY WITH GOAL TO RETURN HOME PREVIOUS WITH ABILITY TO TRANSFER TO [facility] [employer] AND HOME HEALTH FOR CONTINUED HOME SERVICES. HOUSTON VERIFIED THAT PT HAS NO ADULTS ABLE TO LIVE WITH AND ASSIST PT AT HOME AT THIS TIME. [facility]ON ASKED ABOUT [facility] RE[facility]AB SERVICES THAT MAY TAKE PT AT NO COSTS DUE TO INCOME. CM INFORMED HOUSTON THAT CM WAS NOT FAMILIAR WITH ANY OF THESE PROGRAMS. HOUSTON WOULD LIKE TO HAVE PT EVALUATED FOR REHAB AT [facility] PRIOR TO ANY CONSIDERATION OF USP PLACEMENT PT WILL NOT GET THERAPY THERE. CM SPOKE TO PT WHO IS IN AGREEMENT WITH PLAN. CM CALLED [facility] OF [facility], , NOTIFIED OF REHAB REQUEST; PT HAS ONLY 24 ACUTE DAYS THAT STARTED IN JANUARY, IT DEPENDS ON HOW MANY HAVE BEEN ALREADY USED, PT'S CONDITION AND NEEDS THAT WOULD HAVE TO BE MET IN THE REMAINING DAYS THAT PT HAS TO USE FOR REHAB . CM FAXED REFERRALINFORMATION TO [facility] WITH CURRENT MAR AT [phone]. CM WAITING ADMISSION DETERMINATION FROM [facility] IN [place]. Sandor Carrasquillo, CASE MANAGEMENT Appended by Sandor Carrasquillo on 05/26/2019 15:24 CDT: CM MET WITH PT, GRANDDAUGHTER, DAUGHTER [place] VIA PHONE WITH CM BIKE ASSEMBLER, UNIT NURSE CEMENT AND CONCRETE PLANT WORKER, REPIRATORY THERAPIST AND BIKE ASSEMBLER OF THERAPY SERVICES REGARDING DISCHARGE PLANNING. CONCERNS OF PT'S PLAN TO GO HOME IN CURRENT CONDITION DISCUSSED. PT AND DAUGHTER HAVE ALREADY ASKED FOR REFERRAL TO [facility], CM HAS SENT IT AND WAITING DETERMINATION. PLAN "B" WAS AGREED TO BE NURSING FACILITY IF NOT ACCEPTED TO [facility] AND THAT CM WOULD ATTEMPT TO FIND ONE THAT MAY DONATE REHAB SERVICES. PT'S DAUGHTER IS RESEARCHING [employer] FROM [facility] FOR REHAB SERVICES. CM WAITING ADMISSION DETERMINATION FROM [facility] IN [place]. Sandor Carrasquillo CASE MANAGEMENT DCP- Discharge Planning Updated by [id number]: Sandor Carrasquillo on 05/25/19 2:[address] Patient Name: TROY HAYWOOD Encounter No: [id number] : 1955 Primary Insurance: MEDICAID [facility] Date: Planned Disposition: Home HEALTH External Planned Provider: [facility], [facility]ISITING N[facility] follow-up note: CM MET WITH PT IN ROOM TO DISCUSS DISCHARGE NEEDS AND PLANNING. CM DISCUSSED AVAILABILITY OF HOME HEALTH, REHAB SERVICES AND MEDICAL EQUIPMENT. PT REFUSES ALF FACILITY PLACEMENT. PT STATES PLAN TO RETURN HOME. 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 PT WAS ABLE TO AMBULATE SMALL DISTANCES AND TRANSFER SELF FROM BED TO ELECTRIC WHEELCHAIR AT HOME. PT THINKS SHE IS GOING TO BE ABLE TO TRANSFER SELF TO GO BACK HOME. PT WANTS HOME HEALTH RESUMED TO GO HOME. CM EXPRESSED CONCERN OF PT'S CURRENT LEVEL OF FUNCTIONING AND RETURNING HOME. PT DENIES HAVING FRIENDS OR FAMILY TO ASSIST WITH HER CARE AT HOME BUT IS NOT GOING TO A USP. PT THINKS SHE WILL NEED AN AMBULANCE FOR TRANSPORT HOME HER ELECTRIC WHEELCHAIR IS THERE. CM EXPLAINED TO PT THAT SHE WILL NEED TO DEMONSTRATE WITH THERAPY THE ABILITY TO TRANSFER AND SIT IN CHAIR FOR DISCHARGE. PT STATED UNDRESTANDING. CHOICE FOR [facility] VISITING NURSES HOME HEALTH SIGNED. 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 PT REFUSED NURSING FACILITY PLACEMENT. PT WILL NEED TO DEMONSTRATE ABILITY TO TRANSFER AND SIT IN CHAIR FOR DISCHARGE SHE HAS ELECTRIC WHEELCHAIR AT HOME. CM TO ARRANGE HOME HEALTH RESUMPTION WITH [facility] VISITING NURSES [facility]ENC[facility] IN [place] FOR DISCHARGE HOME. CM TO CONTINUE TO FOLLOW AND ASSIST NEEDED. Sandor Carrasquillo CASE MANAGEMENT DCP- Discharge Planning Updated by [id number]: Aelisha Monroe on 05/19/19 7:[address] Patient Name: TROY HAYWOOD Admission Status: ER Accout number: [id number] Admission Date: 05-14-2019 : 1955 Admission Diagnosis: Attending: FABIO PINEDA Current LOS: 5 Anticipated DC Date: Planned Disposition: Home or Self Care Primary Insurance: MEDICAID [place] Discharge Planning Comments: CM met with patient and daughter to complete initial dc planning assessment. Patient recently extubated earlier today. CM educated patient on the CM role and verbal consent given by patient to complete assessment. Patient lives at home with her two young grand-daughters where she is independent with her care. At discharge patient plans to return home and feels this is a safe discharge. CM discussed availability of home health, rehab services, and medical equipment. Patient has Home 02 and HH with unknown providers. CM will f/u with patient @ later date to see if she is able to give providers. Patient denied known discharge needs at this time. CM will continue to follow and will assist as needed with dc plans/needs. [employer] Former Supervisor: Aleisha Monroe DCPIA - Discharge Planning Initial Assessment Updated by NAYLA: Sandor Carrasquillo on 05/28/19 9:36 am * How many steps to enter\\exit or inside your home? * PCP uncertain ? * Pharmacy [facility] * Preadmission Environment Home with Family * ADLs Independent * Other Equipment HOME 02, WALKER, SCOOTER, BSC, SC * List name and contact numbers for known caregivers / representatives who currently or will assist patient after discharge: CHEPE SUN - DAUGHTER- [phone] HOU[place]ON SALGADO, DTR - [phone] * Verbal permission to speak to the caregivers and representatives has been obtained from the patient. Yes * Community resources currently utilized Home Health * Please name any agencies selected above. [facility] * Additional services required to return to the preadmission environment? No * Can the patient safely return to the preadmission environment? Yes * Has this patient been hospitalized within the prior 30 days at any hospital? No Coverage Notice Reviewer: [id number] Carrasquillo Notice Issued Date-Time: 05/25/2019 14:05 Notice Type: Patient Choice Letter Notice Delivered To: Patient Relationship to Patient: Barista Name: Delivery Method: HAND - Hand Delivered Marry Days: Prior Verbal Notification: Recipient Understood Notice: Yes Recipient Signature: Yes Med Rec Note Co-signed by Attending: Coverage Notice Comment: [facility]- VISITING NURSES [facility] ([facility]) Reviewer: NAYLA Carrasquillo Notice Issued Date-Time: 05/31/2019 14:50 Notice Type: Patient Choice Letter Notice Delivered To: Patient Relationship to Patient: Barista Name: Delivery Method: HAND - Hand Delivered Marry Days: Prior Verbal Notification: Recipient Understood Notice: Yes Recipient Signature: Yes Med Rec Note Co-signed by Attending: Coverage Notice Comment: [facility] Reviewer: NAYLA Carrasquillo Notice Issued Date-Time: 06/09/2019 9:55 Notice Type: Patient Choice Letter Notice Delivered To: Patient Relationship to Patient: Barista Name: Delivery Method: HAND - Hand Delivered Marry Days: Prior Verbal Notification: Recipient Understood Notice: Yes Recipient Signature: Yes Med Rec Note Co-signed by Attending: Coverage Notice Comment: [facility] OR ANY ACCEPTING ALF FACLITY Reviewer: NAYLA Carrasquillo Notice Issued Date-Time: 06/10/2019 16:25 Notice Type: Patient Choice Letter Notice Delivered To: Patient Relationship to Patient: Barista Name: Delivery Method: HAND - Hand Delivered Marry Days: Prior Verbal Notification: Recipient Understood Notice: Yes Recipient Signature: Yes Med Rec Note Co-signed by Attending: Coverage Notice Comment: MASTER SANTIZO export: 06/15/19 8:26 Patient Name: TROY HAYWOOD Page [id number] at 1636 All edits/amendments must be made on the electronic document DICTATION DATE: 06/15/19 163 SENIOR LITIGATION PARALEGAL: MISHEL 06/15/19 1635 RPT#: [id number] RI DATE: STATUS: ADM IN [facility] [address] [place] [address] END OF REPORT
--- NOTE | 2019-06-15 16:55 | NUR ---
OT NOTE: PT REPORTED FEELING NAUSEATED TODAY. INCREASED WEAKNESS AND UE/LE TREMORS WHILE IN STANDING. BED MOB WITH MOD ASSIST FOR SUPINE TO SIT; PERFORMED SIT TO STAND WITH WALKER AND MOD ASSIST X 2..UNABLE TO SIDE STEP TODAY DUE TO "LEGS SHAKING".. BACK TO BED WITH MAX ASSIST. CONTINUED WORK ON BED MOB INCLUDING ROLLING AND USING TRAPEZE BAR TO SCOOT UP IN BED. PERFORMED UE/LE EXS WHILE SITTING ON EOB. SAÚL ESCAMILLA, OTR/L
--- NOTE | 2019-06-15 19:30 | NUR ---
AWAKE AND ALERT EFFORT MADE TO ASSIST WITH COMFORT BED WORKING LOW AND LOCKED WITH CALL LIGHT IN PT REACH
--- NOTE | 2019-06-15 19:34 | NUR ---
OT NOTE: PT COMPLETED BED MOB TASKS SIDE TO SIDE ROLL WITH MAX X3. PT COMPLETED SUPINE TO SIT WITH MOD A X2. PT COMPLETED SIT TO STAND WITH MOD A X2. PT COMPLETED LB HYGIENE TASK WITH TOTAL A. THANK YOU, BLADIMIR MANCERA
[2019-06-15 20:00] VITALS: BP 103/46
[2019-06-16] VITALS: BP 105/39
--- NOTE | 2019-06-16 03:21 | NUR ---
I have reviewed this patient and I concur with the Shift Assessment completed by the Licensed Practical Nurse today this shift.
[2019-06-16 04:00] VITALS: BP 108/38
[2019-06-16 09:55] VITALS: BP 119/41
[2019-06-16 13:34] VITALS: BP 100/47
--- NOTE | 2019-06-16 13:48 | NUR ---
THERE IS AN ORDER TO TAKE OUT CVL, HOWEVER I JUST TALKED TO SERAFIN CANNON AND DR KANG, AND THEY SAID TO WAIT ON REMOVAL UNTIL AFTER THE RESULTS OF THE GULLBLADDER SCAN.
--- NOTE | 2019-06-16 13:52 | NUR ---
PATIENT IS NPO FOR HER GULLBLADDER SCAN.
--- NOTE | 2019-06-16 15:05 | NUR ---
OT NOTE: PT PERFORMED BED MOB WITH MOD ASSIST. TRYING TO GET PT TO BE ABLE TO PERFORM SUPINE TO SIT WITHOUT ASSISTANCE, HOWEVER, SHE SAYS THAT IT HURTS HER R SIDE TO MUCH. EOB SITTING INDEP. SIT TO STAND WITH MOD A AND USE OF WALKER. ATTEMPTED TO TAKE SIDES STEPS TO L AND R BUT PT WAS VERY SHAKY AGAIN TODAY. EXPLAINED THAT IT IS UP TO HER TO PERFORM EXS IN BED THERAPY IS NOT WITH HER ALL DAY. PT REPORTS THAT SHE IS DOING EXS. SEVERAL ATTEMPTS FOR SIT TO SUPINE..MOD ASSIST TODAY. SEVERAL ATTEMPTS AT INDEP BUT NOT AT INDEP LEVEL YET. EXS WITH TRAPEZE PERFORMED TODAY. CONT TO ENCOURAGE PT TO UTILIZE BED RAILS IN ORDER TO IMPROVE BED MOB. SAÚL ESCAMILLA, OTR/L
--- NOTE | 2019-06-16 15:36 | NUR ---
OT NOTE: PT COMPLETED BED MOBILITY WITH MOD A. PT COMPLETED SUPINE TO SIT WITH MIN A. PT COMPLETED SIT TO STAND WITH MOD A. THANK YOU, BLADIMIR MANCERA
--- NOTE | 2019-06-16 16:05 | NUR ---
PATIENT IS AWAKE AND ALERT. SHE DENIES ANY NEEDS AT THIS TIME. SHE HAS A DRY COUGH AND IS NPO FOR THE GULLBLADDER SCAN.
[2019-06-16 16:38] LABS: BASOPHILS 0.6 % (0-2); EOSINOPHILS 12.8 % (0-7); HEMATOCRIT 32.3 % (36.0-48.0); HEMOGLOBIN 9.6 g/dL (12-16); IMMATURE GRANULOCYTES 0.2 % (0-5); LYMPHOCYTES 23.2 % (15-50); MCH 27.6 pg (26.0-34.0); MCHC 29.7 g/dL (31.0-37.0); MCV 92.8 fL (80.0-100.0); MEAN PLATELET VOLUME 9.7 fL (7.4-10.4); MONOCYTES 14.9 % (2-11); NEUTROPHILS 48.3 % (40-80); PLATELET COUNT 243 10x3/uL (130-400); RBC 3.48 10x6/uL (4.00-5.40); RDW 17.9 % (11.5-14.5); WBC 5.2 10x3/uL (4.8-10.8)
[2019-06-16 16:56] LABS: ANION GAP 7.9 mmol/L (8-16); CALCIUM 7.9 mg/dL (8.5-10.1); CARBON DIOXIDE 35.6 mmol/L (21.0-32.0); CREATININE - SERUM 1.3 mg/dL (0.6-1.3); POTASSIUM - SERUM 3.5 mmol/L (3.5-5.1)
--- NOTE | 2019-06-16 17:08 | MORECARE ---
CASE MANAGEMENT DISCHARGE SUMMARY PATIENT: TROY HAYWOOD UNIT: [id number] ADM DATE: 05/14/19 AGE: 64 : [birth year] SEX: F ROOM/BED: D.2140 AUTHOR: DAYDAY,DOC PHYSICIAN: REFERRING PHYSICIAN: FABIO PINEDA MD DATE OF SERVICE: 06/16/19 Discharge Plan Patient Name: TROY HAYWOOD Facility: [facility] : 1955 Planned Disposition: Nursing Facility YUN Cert Anticipated Discharge Date: 06/11/19 Discharge Date: Expected LOS: 28 Initial Reviewer: [id number] Initial Review Date: 05/19/2019 Generated: 06/16/19 6:07 pm Comments DCP- Discharge Planning Updated by [id number]: Sandor Carrasquillo on 06/16/19 4:[address] Patient Name: TROY HAYWOOD Encounter No: [id number] : 1955 Primary Insurance: MEDICAID [place] Anticipated DC Date: 06-11-2019 Planned Disposition: Nursing Facility YUN Cert External Planned Provider: FIRST ACCEPTING FACILITY DCP follow-up note: CM FAXED REFERRAL UPDATE TO [facility] FOR DEVELOPMENT TEAM LEAD CARE PLACEMENT AT [phone]. CM FAXED REFERRAL UDPATE TO [facility] AT [phone]. CM FAXED UPDATE TO [facility] AT [phone] FOR DEVELOPMENT TEAM LEAD CARE PLACEMENT. - CM WAITING ADMISSION DETERMINATION FROM [facility] FOR DEVELOPMENT TEAM LEAD CARE PLACEMENT IN ONE OF HER AFFILIATED NURSING HOMES. - CM WAITING RETURN CALL FROM [facility] IN [facility]. - CM WAITING DETERMINATION FROM [facility] FOR DEVELOPMENT TEAM LEAD CARE PLACEMENT IN ONE OF HER AFFILIATED NURSING HOMES. Sandor Carrasquillo CASE MANAGEMENT DCP- Discharge Planning Updated by [id number]: Sandor Carrasquillo on 06/15/19 3:[address] Patient Name: TROY HAYWOOD Encounter No: [id number] : 1955 Primary Insurance: MEDICAID [place] Anticipated DC Date: 06-11-2019 Planned Disposition: Nursing Facility UYN Cert External Planned Provider: FIRST ACCEPTING DCP follow-up note: CM SENT MESSAGE TO TROY MIMS, , OF [facility] ASKING FOR FDC CARE PLACEMENT ASSISTANCE WITH REHAB IF POSSIBLE. CM FAXED REFERRAL TO TROY AT [phone]. CM CALLED [facility] IN [facility], , HE HAS NOT BEEN ABLE TO GET A DETERMINATION ON TREY AND CANNOT LOCATE THE PERSON IN CORPORATE WHO HAS PT'S TREY APPLICATION. HE WILL CONTINUE TO TRY TO LOCATE WHO IS PROCESSING THE APPLICATION HE HAS NOT SEEN IT OR HEARD ANY DETERMINATION. CM FAXED REFERRAL UDPATE TO [facility] AT [phone]. M FAXED UPDATE TO [facility] AT [phone]. CHAR INFORMED CM THAT SHE HAS NO BERIATRIC CORRECTION BED YET BUT IS HOPEUL TO HAVE AN OPENING "SOON". ASKED BY PT'S DAUGHTER, CM CALLED AND SPOKE TO RUT, , OF [facility] AND REQUESTED PRIVATE PAY DOWN PAYMENT AND MONTHLY PAYMENT AMOUNTS FOR REHAB AT [facility]. CM FAXED REFERRAL TO [facility] AT [phone]. - CM WAITING ADMISSION DETERMINATION FROM [facility] FOR FDC CARE PLACEMENT IN ONE OF HER AFFILIATED NURSING HOMES. - CM WAITING RETURN CALL FROM [facility] IN [place] REGARDING TREY REHAB. - CM WAITING DETERMINATION FROM TROY MIMS OF [facility] FOR FDC CARE PLACEMENT IN ONE OF HER AFFILIATED NURSING HOMES. Sandor Carrasquillo, CASE MANAGEMENT Appended by Sandor Carrasquillo on 06/15/2019 16:28 GAMING INVESTIGATOR: CM FAXED [facility] TREY APPLICATION TO [facility] IN [facility] [place]. CM SPOKE TO TROY OF [facility] WHO EXPLAINED SHE IS CONTINUING TO LOOK FOR CORRECTION PLACEMENT; THE OBSTACLE IS THE COSTS OF RENTING BIPAP AND OTHER BERIATRIC EQUIPMENT. CM SPOKE TO RUT OF [facility] INPATIENT REHAB, THEY WILL NOT CONSIDER PATIENT FOR REHAB ON PRIVATE PAY BASIS AND WOULD DENY PATIENT REGARDLESS DUE TO HER "ENTIRE SITUATION". CM NOTIFIED PT AND DAUGHTER IN ROOM OF PROGRESS AND LACK THEREOF. CM ASKED TO SEND REFERRALS TO OTHER NURSING FACILITIES, PT REFUSED STATING SHE WANTS TO WAIT FOR DEFINITE ANSWER FROM [facility] FOR TREY REHAB SERVICES. - CM WAITING ADMISSION DETERMINATION FROM [facility] FOR DEVELOPMENT TEAM LEAD CARE PLACEMENT IN ONE OF HER AFFILIATED NURSING HOMES. - CM WAITING RETURN CALL FROM [facility] IN [place] REGARDING TREY REHAB. - CM WAITING DETERMINATION FROM TROY MIMS OF [facility] FOR FDC CARE PLACEMENT IN ONE OF HER AFFILIATED NURSING HOMES. Sandor Carrasquillo CASE MANAGEMENT DCP- Discharge Planning Updated by [id number]: Sandor Carrasquillo on 06/11/19 3:[address] Patient Name: TROY HAYWOOD Encounter No: [id number] : 1955 Primary Insurance: MED[place]ID [place] Anticipated DC Date: 06-11-2019 Planned Disposition: Nursing Facility YUN Cert External Planned Provider: : DCP follow-up note: CM RECEIVED MESSAGE FROM TROY OF [facility], THEY WILL NOT ACCEPT PT. CM [facility] AT [phone]. CM FAXED UPDATE TO [facility] AT [phone]. CHAR INFORMED CM THAT SHE ANTICIPATES A BERIATRIC CORRECTION BED OPENING "SOON". CM NOTIFIED PT AND DAUGHTER OF PROGRESS / LACK THEREOF IN ROOM. - CM WAITING ADMISSION DETERMINATION FROM [facility] FOR FDC CARE PLACEMENT IN ONE OF HER AFFILIATED NURSING HOMES. - CM WAITING RETURN CALL FROM [facility] IN [place] REGARDING TREY REHAB. Sandor Carrasquillo CASE DEVAUGHN DCP- Discharge Planning Updated by [id number]: Sandor Carrasquillo on 06/10/19 3:[address] Patient Name: TROY HAYWOOD Encounter No: [id number] : 1955 Primary Insurance: MED[place]ID [place] Anticipated DC Date: 06-11-2019 Planned Disposition: Nursing Facility [facility] Cert External Planned Provider: FIRST ACCEPTING FACILITY DCP follow-up note: - CM RECEIVED CALL FROM [facility], THEY HAVE NOT AVAILABILITY FOR TREY REHAB BED. CM RECEIVED CALL FROM [facility] OF [facility], THEY HAVE NOT RECEIVED TREY APPLICATION AND HAVE NO CURRENT BEDS BUT WOULD CONSIDER PT. CM RETURNED CALL TO [facility] AT [facility], , INFORMED THAT TREY APPLICATION [facility], TELEPHONE CONTACT [phone]. HETAL ASKED FOR REFERRAL TO BE SENT AND HE WILL SCREEN FOR ADMISSION. CM FAXED REFERRAL TO [facility] AT [phone]. CM NOTIFIED PT AND DAUGHTER OF PROGRESS IN ROOM. PT AND DAUGHTER ASKED FOR CM TO SEND REFERRAL TO [facility] IN [place]. CHOICE SIGNED. CM FAXED REFERRAL TO [facility] VIA [facility] AT [phone]. - CM WAITING ADMISSION DETERMINATION FROM [facility] FOR FDC CARE PLACEMENT IN ONE OF HER AFFILIATED NURSING HOMES. - CM WAITING RETURN CALL FROM [facility] IN [place] REGARDING TREY REHAB. - CM WAITING ADMISSION DETERMINATION FROM [facility]. Sandor Carrasquillo, CASE MANAGEMENT DCP- Discharge Planning Updated by [id number]: Sandor Carrasquillo on 06/09/19 3:[address] Patient Name: TROY HAYWOOD Encounter No: [id number] : 1955 Primary Insurance: MED[place]ID [place] Anticipated DC Date: 06-10-2019 Planned Disposition: Nursing Facility [facility] Cert External Planned Provider: FIRST ACCEPTING FACILITY DCP follow-up note: CM SPOKE TO PT AND DAUGHTERCHEPE, THEY WILL LET CM SEEK CORRECTION PLACEMENT FOR THEM TO CONSIDER BUT STILL DO NOT WANT DEVELOPMENT TEAM LEAD CARE IF THEY CAN OBTAIN REHAB THROUGH THE [facility]. DAUGHTER ADVISED SHE HAS CONFIRMED RECE[facility] AND IS IN PROCESS OF REVIEW. DAUGHTER ASKED CM TO CHECK INTO REHAB'S THAT MAY HAVE [facility] AFFILIATION. CM CALLED [facility], , REQUESTED ASSISTANCE IN FDC CARE PLACEMENT WITH INTENT TO RETURN HOME. CHAR STATES THAT SHE MAY HAVE HOME'S WILL ACCEPT BARIATRIC PATIENT AND WILL ATTEMPT PLACEMENT. CHAR WILL MEET WITH PT LATER TODAY. CM FAXED REFERRAL TO [facility] AT [phone]. CM SPOKE TO TROY [facility] OF [facility], TROY INFORMED CM THAT SHE HAS NO HOMES IN HER GROUP THAT MAY ASSIST WITH PLACEMENT. CM CALLED [facility] [place], WAS ADVISED BY RUT THAT THEY WILL NOT CONSIDER FOR TREY CARE, THEY ARE NOT AFFILIATED WITH [facility]. CM CALLED [facility], , SPOKE TO CHELO WHO INFORMED CM THAT THEY ARE NOT AFFILIATED WITH [facility] BUT WILL CONSIDER PT FOR TREY REHAB. CM FAXED REFERRAL TO [facility] AT [phone]. CM CALLED [facility] IN [place], , SPOKE TO DHEERAJ WHO REPORTS THEY HAVE NO OPEN REHAB BEDS AND HAVE NO PROJECTED DISCHARGES SOON. THEY DO NOT HAVE WEIGHT LIMITS. DHEERAJ DID NOT WANT REFERRAL FAXED, SHE WILL REPORT TO BREN WHO WILL CHECK WITH THE [facility] PROGRAM REGARDING APPLICATION STATUS AND CALL CM TOMORROW, 06-10-19. CM NOTIFIED PT IN ROOM OF PROGRESS. PT STATES SHE MAY BE ABLE TO TRANSFER SELF AND GO HOME BEFORE CM FINDS REHAB FOR HER. - CM WAITING ADMISSION DETERMINATION FROM [facility] FOR DEVELOPMENT TEAM LEAD CARE PLACEMENT IN ONE OF HER AFFILIATED NURSING HOMES. - CM WAITING ADMISSION DETERMINATION FROM [facility] FOR TREY REHAB BED. - CM WAITING RETURN CALL FROM [facility] IN [place] REGARDING TREY REHAB. Sandor Carrasquillo, CASE MANAGEMENT DCP- Discharge Planning Updated by [id number]: Sandor Carrasquillo on 06/04/19 4:[address] Patient Name: TROY HAYWOOD Encounter No: [id number] : 1955 Primary Insurance: MED[place]ID [place] Anticipated DC Date: 06-02-2019 Planned Disposition: Nursing Facility [facility] Cert External Planned Provider: TO BE DETERMINED DCP follow-up note: CM SPOKE TO PT AND DAUGHTER CHEPE, IN ROOM. PT IS AND FOR PAST 10 YEARS, BUT NOT LEGALLY. THEY CANNOT QUALIFY FOR MEDICAID FOR FDC CARE DUE TO NOT HAVING SPOUSE FINANICAL INFORMATION. PT AND DAUGHTER BOTH STATE THAT THEY DO NOT WANT TO PUT PT INTO FDC CORRECTION CARE WHERE SHE WILL JUST LAY IN THE BED. THEY DO NOT WANT FURTHER CORRECTION REFERRALS FAXED OUT. CM DISCUSSED THAT PT IS STABLE FOR DISCHARGE MEDICALLY. PT'S DAUGHTER REPORTS PT IS NOT HAVING BOWEL MOVEMENTS AND THAT THE FECES COMING OUT IS COMING AROUND AN IMPACTION AND NO ONE IS ADDRESSING THIS. CM NOTIFIED TOBY THOMAS WHO PROVIDED ORDERS FOR MEDICATION TO TREAT CONDITION. BEDSIDE NURSE NOTIFIED. PT'S DAUGHTER PROVIDED CM WITH 77 PAGES AND ASKED CM TO FAX TO [facility] FOR FINANCIAL ASSISTANCE REGARDING REHAB SERVICES FOR PT. CM FAXED TO [facility] FINANCIAL ASSISTANCE PROGRAM AT [phone]. PT'S DAUGHTER ADVISED THAT IF APPROVED, PT WILL HAVE TO [facility]. PT WAS DECLINED DEVELOPMENT TEAM LEAD CARE PLACEMENT AT [facility]; PT AND FAMILY DECLINE TO HAVE FURTHER REFERRALS SENT OUT. FAMILY IS TRYING TO SECURE FINANCIAL ASSISTANCE FOR REHAB SERVICES THROUGH [facility]. CM TO CONTINUE TO FOLLOW AND ASSIST. Sandor Carrasquillo CASE MANAGEMENT DCP- Discharge Planning Updated by [id number]: Sandor Carrasquillo on 06/04/19 11:[address] Patient Name: TROY HAYWOOD Encounter No: [id number] : 1955 Primary Insurance: MEDICAID [facility] DC Date: 06-02-2019 Planned Disposition: Nursing Facility [facility] Cert External Planned Provider: WAITING FAMILY DECISION DCP follow-up note: CM RECEIVED CALL FROM [facility] WHO ADVISED CM THAT PT HAS BEEN FIANCIALLY DENIED FOR PLACEMENT. CM SPOKE TO PT IN ROOM WHO ADVISED THAT SHE UNDERSTOOD THEY WERE JUST GOING TO LEAVE HER LAYING IN BED FOR A MONTH AND NOT GIVE HER ANY REHAB SERVICES. CM EXPLAINED THAT MEDICAID DOES NOT PAY FOR REHAB SERVICES, ONLY DEVELOPMENT TEAM LEAD CARE AND PT WOULD RECEIVE WHAT THEY CALL "RESTORATIVE CARE" FROM STAFF AT ANY CORRECTION, NOT THERAPY SERVICES. PT STATES SHE IS NOW ABLE TO STAND UP WITH THERAPY HERE. CM EXPLAINED THAT PT IS GETTING 8 TO 16 MINUTES OF THERAPY PER DAY AND THAT ALTHOUGH CM WAS HAPPY WITH PROGRESSION, PT IS MEDICALLY STABLE TO LEAVE THE HOSPITAL AND THAT SHE WOULD RECEIVE MORE THERAPY AT HOME WITH HOME HEALTH THAN IN THIS ACUTE HOSPITAL SETTING. PT STATES SHE IS NOT SURE WHAT HAPPENED, THAT CHEPE IS TAKING CARE OF THIS FOR HER AND THAT CHEPE WILL BE TO THE HOSPITAL IN A LITTLE WHILE TO SPEAK TO CM; PT BELIVES THAT CHEPE IS AGAIN WORKING ON TRYING TO GET TREY REHAB CARE THROUGH THE [facility]. PT HAS BEEN FINANCIALLY DECLINED FOR FDC CARE PLACEMENT BY [facility]. PT DEFERRING PLANNING TO HER DAUGHTER, CHEPE. CM WAITING FAMILY TO ARRIVE TO DISCUSS FURTHER DISCHARGE PLANNING. Sandor Carrasquillo CASE MANAGEMENT DCP- Discharge Planning Updated by [id number]: Sandor Carrasquillo on 06/03/19 7:[address] Patient Name: TROY HAYWOOD Encounter No: [id number] : 1955 Primary Insurance: MED[place]ID [place] Anticipated DC Date: 06-02-2019 Planned Disposition: Nursing Facility [facility] Cert External Planned Provider: [facility] DEVELOPMENT TEAM LEAD [facility] MEDICAID BED DISCHARGE PLANNING NOTE: CM FA[facility]ED [facility]ERRAL UPDATE [facility] AT [phone]. CM WAITING ADMISSION DET[facility]MINATION [facility] FOR DEVELOPMENT TEAM LEAD CARE. WAITING FAMILY TO PROVIDE FINANCIAL INFORMATION FOR FDC CARE MEDICAID APPLICATION TO FACILITY. ROSANNA Montaño DCP- Discharge Planning Updated by [id number]: Sandor Carrasquillo on 06/02/19 3:[address] Patient Name: TROY HAYWOOD Encounter No: [id number] : 1955 Primary Insurance: MED[place]ID [place] Anticipated DC Date: 06-02-2019 Planned Disposition: Nursing Facility [facility] Cert External Planned Provider: [facility] MEDICAID BED DCP follow-up note: CM FAXED REFERRAL UPDATE TO [facility] AT [phone]. CM WAITING ADMISSION DETERMINATION FROM [facility] FOR [facility]OPMENT TEAM LEAD CARE. Sandor Carrasquillo CASE MANAGEMENT Appended by Sandor Carrasquillo on 06/02/2019 16:50 GAMING INVESTIGATOR: CM RECEIVED CALL FROM LU[facility] OF [facility], , THEY RECEIVED THE UPDATE BY FAX AND WILL CONTACT FAMILY REGARDING FINANCIALS. [facility] REPORTS THEY ARE STILL WAITING ON NURSING TO ACCEPT FOR DEVELOPMENT TEAM LEAD CARE AND WILL ALSO NEED FINANCIAL CLEARANCE TO ENTER THE FACILITY. CM WAITING ADMISSION DETERMINATION FROM [facility] FOR FDC CARE. [facility] CONTACTING FAMILY TO ASSIST WITH FINANCIAL INFORMATION FOR FDC CARE MEDICAID APPLICATION. ROSANNA Montaño DCP- Discharge Planning Updated by [id number]: Sandor Carrasquillo on 06/01/19 4:[address] Patient Name: TROY HAYWOOD Encounter No: [id number] : 1955 Primary Insurance: MED[place]ID [place] Anticipated DC Date: 06-02-2019 Planned Disposition: Nursing Facility [facility] Cert External Planned Provider: [facility] MEDICAID BED DCP follow-up note: CM MET WITH PT AND DAUGHTER HOUSTON, WHO HAS MADE IT FROM [place]. UPDATE PROVIDED. CM CALLED [facility], DALE INFORMED CM THAT REFERRAL FROM AND [facility] WAS RECEIVED, STAFF IN MEETING TODAY AND THEY WILL FINISH ADMISSION REVIEW TOMORROW, 06-02-19. CM NOTIFIED PT AND DAUGHTER IN ROOM. CM WAITING ADMISSION DETERMINATION FROM [facility] FOR DEVELOPMENT TEAM LEAD CARE. Sandor Carrasquillo, CASE MANAGEMENT DCP- Discharge Planning Updated by [id number]: Sandor Carrasquillo on 05/31/19 3:[address] Patient Name: TROY HAYWOOD Encounter No: [id number] : 1955 Primary Insurance: MED[place]ID [place] Anticipated DC Date: 06-01-2019 Planned Disposition: Nursing Facility [facility] External Planned Provider: [facility] MEDICAID BED DCP follow-up note: AFTER SEVERAL VISITS WITH PT IN ROOM, PHONE CALLS WITH DAUGHTERS, [facility] AND [facility], PT DECIDED TO CONSENT TO 30 DAYS OF DEVELOPMENT TEAM LEAD CARE AT [facility] AFTER PT'S DAUGTHERS, WITH AIDE [facility], LOCATED [facility] WHO WILL CONSIDER PT FOR CARE. PT SIGNED CHOICE. CM FAXED REFERRAL INFORMATION TO [facility] AT [phone]. CM WAITING ADMISSION DETERMINATION FROM [facility] FOR DEVELOPMENT TEAM LEAD CARE. Sandor Carrasquillo CASE DEVAUGHN DCP- Discharge Planning Updated by [id number]: Sandor Carrasquillo on 05/28/19 3:[address] Patient Name: TROY HAYWOOD Encounter No: [id number] : 1955 Primary Insurance: MEDICAID [place] Anticipated DC Date: 06-02-2019 Planned Disposition: Home with [facility] External Planned Provider: [email or web address] [facility] DCP follow-up note: CM RECEIVED CALL FROM PT'S DAUGHTER, CHEPE, WHO VERIFIED THAT SHE WILL COME NEXT WEEK TO STAY WITH PT FOR TWO OR THREE WEEKS TO CARE FOR PT AT HOME. CHEPE WILL DISCUSS WITH HER MOTHER THAT SHE WILL HAVE TO BE ABLE TO STAND AND TRANSFER FOR CHEPE TO CARE FOR HER. CM REVIEWED THERAPY NOTES TO PRESENT. 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 PT HAS BEDSIDE COMMODE AND WHEELCHAIR AT HOME. CHEPE REPORTS NEED OF [facility] RESUMPTION. CHEPE WILL DISCUSS WITH PT AND TRY TO MOTIVATE HER TO MEET THERAPY GOALS PRIOR TO ARRIVAL ON NEXT FRIDAY OR FRIDAY. PT'S DAUGHTER PLANS TO TAKE PT HOME NEXT FRIDAY OR FRIDAY, THEY WILL NEED [facility] RES[facility], DENIES FURTHER NEEDS. CM TO FOLLOW AND ASSIST NEEDED. Sandor Carrasquillo, CASE MANAGEMENT DCP- Discharge Planning Updated by [id number]: Sandor Carrasquillo on 05/28/19 2:[address] Patient Name: TROY HAYWOOD Encounter No: [id number] : 1955 Primary Insurance: MED[place]ID [place] Anticipated DC Date: Planned Disposition: Nursing Facility [facility] Cert External Planned Provider: TO BE DETERMINED DCP follow-up note: CM SPO[facility], SHE INFORMED CM THAT UPDATES HAVE BEEN RECEIVED, PT IS NOT MAKING ENOUGH PROGRESS WITH THERAPY THAT THEY DO NOT BELIEVE THAT PT WILL BE ABLE TO ACHIEVE THERAPY GOALS IN THE REMAINING 10 DAYS OF ACUTE DAYS THAT PT HAS REMAINING. CM NOTIFIED PT AND PROVIDED PT WITH NURSING FACILITY LISTING OF ALL AVAILABLE FACILITIES WITHIN [address] OF [place]. PT WILL SPEAK TO HER DAUGHTER AND NOTIFY CM OF HER CHOICES. CM CALLED [facility], , TWICE; AUTOMATED MESSAGE INFORMED CM THAT THE NUMBER WAS RESTRICTED OR CURRENTLY UNAVAILABLE. CM WAITING PT AND FAMILY TO PROVIDE NURSING FACILITY CHOICES FOR FDC CARE. Sandor Carrasquillo, CASE MANAGEMENT Appended by Sandor Carrasquillo on 05/28/2019 12:07 CDT: CM SPOKE TO PT IN ROOM, NOTIFIED PT THAT CM TRIED AND COULD NOT REACH DAUGHTER HOUSTON VIA PHONE. PT REPORTS SHE SPOKE TO [facility]ON WHO TOLD HER THAT [facility] WILL NOT TAKE HER DUE TO WEIGHT; PT'S DAUGHTER TOLD PT THAT [facility] PROBAB[facility] WILL NOT TAKE HER. PT REPORTS THERE IS ONE IN [place] THAT MIGHT CONSIDER HER. CM OFFERED CHOICE FORM FOR SIGNATURE SO THAT CM COULD SEND REFERRALS AND BEGIN CALLING TO FIND PLACEMENT. PT REFUSED AND STATES SHE HAS A DAUGHTER, CHEPE, WHO IS A REGISTERED NURSE, THAT MAY BE COMING TO TAKE CARE OF PT AT HOME. PT'S DAUGHTER HOUSTON IS CALLING DAUGHTER CHEPE TO DISCUSS THE OPTION. PT STATES SHE WILL LET CM KNOW THE OUTCOME AND IF SHE WANTS CM TO EXPLORE CORRECTION CARE FOR HER. CM WAITING PT AND FAMILY TO PROVIDE NURSING FACILITY CHOICES AND FOR PT TO SIGN CONSENT FOR CORRECTION PLACEMENT. PT IS NOW HOPEFUL THAT HER DAUGHTER WHO IS A REGISTERED NURSE WILL COME AND STAY WITH PT AND TAKE CARE OF HER AT HOME. SANDOR CARRASQUILLO, CASE MANAGEMENT Appended by Sandor Carrasquillo on 05/28/2019 14:27 CDT: CM RECEIVED MESSAGE THAT PT WANTS TO SEE CM. CM MET WITH PT IN ROOM WHO INFORMED CM THAT SHE HIS NOT GOING TO A CORRECTION, THAT HER DAUGHTER, CHEPE, WHO IS A NURSE, WILL BE HERE NEXT FRIDAY TO TAKE HER HOME AND WILL TAKE CARE OF PT AT HOME. PT ASKED FOR [facility]. CM DISCUSSED POSSIBLE NEED OF DEBORAH LIFT AND ASKED ABOUT ADDITIONAL EQUIPMENT. PT THINKS BY NEXT WEEK, SHE WILL BE ABLE TO TRANSFER WITHOUT AIDE OF LIFT DEVICE. CM NOTIFIED DR. FREEDMAN WHO INFORMED CM THAT HE WILL ORDER BLOOD GAS ON FRIDAY TO DETERMINE RESPIRATORY DISCHARGE NEEDS AT THAT TIME. PT HAS SIGNED RIGHT OF CHOICE FOR [facility] ALREADY. PT REPORTS HER DAUGHTER, WHO IS A REGISTERED NURSE, WILL BE HERE FRIDAY OF NEXT WEEK TO TAKE CARE OF PT AT HOME. PT PLANS TO DISCHARGE HOME WITH FAMILY AND [facility]. CM TO FOLLOW AND ASSIST NEEDED. ROSANNA MONTAÑO DCP- Discharge Planning Updated by [id number]: Sandor Carrasquillo on 05/28/19 7:[address] Patient Name: TROY HAYWOOD Encounter No: [id number] : 1955 Primary Insurance: MEDICAID [place] Anticipated DC Date: Planned Disposition: Inpatient Rehab External Planned Provider: [facility] DCP follow-up note: CM FAXED REFERRAL UPDATE TO [facility] AT [phone]. CM WAITING ADMISSION DETERMINATION FROM [facility] IN [place]. ROSANNA Montaño DCP- Discharge Planning Updated by [id number]: Sandor Carrasquillo on 05/27/19 2:[address] Patient Name: TROY HAYWOOD Encounter No: [id number] : 1955 Primary Insurance: MEDICAID [place] Anticipated DC Date: Planned Disposition: Inpatient Rehab External Planned Provider: [facility] DCP follow-up note: CM FAXED REFERRAL UPDATE TO [facility] AT [phone]. CM WAITING ADMISSION DETERMINATION FROM [facility] IN [place]. Sandor Carrasquillo, CASE MANAGEMENT Appended by Sandor Carrasquillo on 05/27/2019 14:41 CDT: CM CALLED RUT OF [facility], , LEFT MESSAGE ASKING FOR UPDATE ON REFERRAL AND TO KNOW IF THEY ARE STILL CONSIDERING PT FOR REHAB. CM WAITING ADMISSION DETERMINATION FROM [facility] IN [place]. Sandor Carrasquillo, CASE MANAGEMENT DCP- Discharge Planning Updated by [id number]: Jesica Osiel on 05/26/19 4:[address] Patient requested Trapeze bar to allow her to sit up in hospital bed. CM spoke Dr. Lawson and obtained approval for Trapeze bar. CM notified Radha in materials management of request for Trapeze bar. CM completed and gave Radha the order form for the Trapeze bar. Trapeze bar will be delivered. CM notified patient's CM, Christiano Carrasquillo, on status of Trapeze bar. DCP- Discharge Planning Updated by [id number]: Sandor Carrasquillo on 05/26/19 3:[address] Patient Name: TROY HAYWOOD Encounter No: [id number] : 1955 Primary Insurance: MEDICAID [place] Anticipated DC Date: Planned Disposition: Inpatient Rehab External Planned Provider: [facility] DCP follow-up note: CM SPOKE TO PT'S DAUGHTER VIA PHONE, HOUSTON SALGADO, . CM OBTAINED PERMISSION FROM PT TO DISCUSS CARE, TREATMENT AND DISCHARGE PLANNING WITH HOUSTON. HOUSTON INFORMED CM THAT PT WAS IN REHAB AT [facility] LAST YEAR AND THEY WANT REFERRED TO [facility] AGAIN. CM DISCUSSED PT'S VERY LOW LEVEL OF PHYSICAL CONDITIONING. PT'S DAUGHTER FEELS THAT PT CAN PARTICIPATE WITH THERAPY WITH GOAL TO RETURN HOME PREVIOUS WITH ABILITY TO TRANSFER TO [facility] FOR CONTINUED HOME SERVICES. HOUSTON VERIFIED THAT PT HAS NO ADULTS ABLE TO LIVE WITH AND ASSIST PT AT HOME AT THIS TIME. HOUSTON ASKED ABOUT [facility] SERVICES THAT MAY TAKE PT AT NO COSTS DUE TO INCOME. CM INFORMED [place] THAT CM WAS NOT FAMILIAR WITH ANY OF THESE PROGRAMS. [place] WOULD LIKE TO HAVE PT EVALUATED FOR REHAB AT [facility] PRIOR TO ANY CONSIDERATION OF CORRECTION PLACEMENT PT WILL NOT GET THERAPY THERE. CM SPOKE TO PT WHO IS IN AGREEMENT WITH PLAN. CM CALLED [facility]PAT[facility], , NOTIFIED OF REHAB REQUEST; PT HAS ONLY 24 ACUTE DAYS THAT STARTED IN JANUARY, IT DEPENDS ON HOW MANY HAVE BEEN ALREADY USED, PT'S CONDITION AND NEEDS THAT WOULD HAVE TO BE MET IN THE REMAINING DAYS THAT PT HAS TO USE FOR REHAB . CM FAXED REFERRALINFORMATION TO [facility] WITH CURRENT MAR AT [phone]. CM WAITING ADMISSION DETERMINATION FROM [facility] IN [place]. Sandor Carrasquillo, CASE MANAGEMENT Appended by Sandor Carrasquillo on 05/26/2019 15:24 CDT: CM MET WITH PT, GRANDDAUGHTER, DAUGHTER [place] VIA PHONE WITH CM PAPER CORE MACHINE OPERATOR, UNIT NURSE DYE WINCH OPERATOR, REPIRATORY THERAPIST AND PAPER CORE MACHINE OPERATOR OF THERAPY SERVICES REGARDING DISCHARGE PLANNING. CONCERNS OF PT'S PLAN TO GO HOME IN CURRENT CONDITION DISCUSSED. PT AND DAUGHTER HAVE ALREADY ASKED FOR REFERRAL TO [facility] REH[facility], CM HAS SENT IT AND WAITING DETERMINATION. PLAN "B" WAS AGREED TO BE NURSING FACILITY IF NOT ACCEPTED TO [facility] AND THAT CM WOULD ATTEMPT TO FIND ONE THAT MAY DONATE REHAB SERVICES. PT'S DAUGHTER IS RESEARCHING [facility] FROM [facility] FOR REHAB SERVICES. CM WAITING ADMISSION DETERMINATION FROM [facility] IN [place]. Sandor Carrasquillo, CASE MANAGEMENT DCP- Discharge Planning Updated by [id number]: Sandor Carrasquillo on 05/25/19 2:[address] Patient Name: TROY HAYWOOD Encounter No: [id number] : 1955 Primary Insurance: MEDICAID [facility] Date: Planned Disposition: Home HEALTH External Planned Provider: [facility] [place], [facility] follow-up note: CM MET WITH PT IN ROOM TO DISCUSS DISCHARGE NEEDS AND PLANNING. CM DISCUSSED AVAILABILITY OF HOME HEALTH, REHAB SERVICES AND MEDICAL EQUIPMENT. PT REFUSES [facility] FACILITY PLACEMENT. PT STATES PLAN TO RETURN HOME. 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 PT WAS ABLE TO AMBULATE SMALL DISTANCES AND TRANSFER SELF FROM BED TO ELECTRIC WHEELCHAIR AT HOME. PT THINKS SHE IS GOING TO BE ABLE TO TRANSFER SELF TO GO BACK HOME. PT WANTS HOME HEALTH RESUMED TO GO HOME. CM EXPRESSED CONCERN OF PT'S CURRENT LEVEL OF FUNCTIONING AND RETURNING HOME. PT DENIES HAVING FRIENDS OR FAMILY TO ASSIST WITH HER CARE AT HOME BUT IS NOT GOING TO A CORRECTION. PT THINKS SHE WILL NEED AN AMBULANCE FOR TRANSPORT HOME HER ELECTRIC WHEELCHAIR IS THERE. CM EXPLAINED TO PT THAT SHE WILL NEED TO DEMONSTRATE WITH THERAPY THE ABILITY TO TRANSFER AND SIT IN CHAIR FOR DISCHARGE. PT STATED UNDRESTANDING. CHOICE FOR [facility] SIGNED. 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 PT REFUSED NURSING FACILITY PLACEMENT. PT WILL NEED TO DEMONSTRATE ABILITY TO TRANSFER AND SIT IN CHAIR FOR DISCHARGE SHE HAS ELECTRIC WHEELCHAIR AT HOME. CM TO ARRANGE HOME HEALTH RESUMPTION WITH [facility] IN [place] FOR DISCHARGE HOME. CM TO CONTINUE TO FOLLOW AND ASSIST NEEDED. Sandor Carrasquillo, CASE MANAGEMENT DCP- Discharge Planning Updated by [id number]: Aleisha Monroe on 05/19/19 7:[address] Patient Name: TROY HAYWOOD Admission Status: ER Accout number: [id number] Admission Date: 05-14-2019 : 1955 Admission Diagnosis: Attending: FABIO PINEDA Current LOS: 5 Anticipated DC Date: Planned Disposition: Home or Self Care Primary Insurance: MEDICAID [place] Discharge Planning Comments: CM met with patient and daughter to complete initial dc planning assessment. Patient recently extubated earlier today. CM educated patient on the CM role and verbal consent given by patient to complete assessment. Patient lives at home with her two young grand-daughters where she is independent with her care. At discharge patient plans to return home and feels this is a safe discharge. CM discussed availability of home health, rehab services, and medical equipment. Patient has Home 02 and HH with unknown providers. CM will f/u with patient @ later date to see if she is able to give providers. Patient denied known discharge needs at this time. CM will continue to follow and will assist as needed with dc plans/needs. Pre [employer] Special Education Teacher: Aleisha Monroe DCPIA - Discharge Planning Initial Assessment Updated by [id number]: Sandor Carrasquillo on 11/1/19 9:36 am * How many steps to enter\\exit or inside your home? * PCP uncertain ? * Pharmacy [place] * Preadmission Environment Home with Family * ADLs Independent * Other Equipment HOME 02, WALKER, SCJEREMYTER, BSC, SC * List name and contact numbers for known caregivers / representatives who currently or will assist patient after discharge: CHEPE SUN - DAUGHTER- [phone] [place] SALGADO, DTR - [phone] * Verbal permission to speak to the caregivers and representatives has been obtained from the patient. Yes * Community resources currently utilized Home Health * Please name any agencies selected above. [facility] * Additional services required to return to the preadmission environment? No * Can the patient safely return to the preadmission environment? Yes * Has this patient been hospitalized within the prior 30 days at any hospital? No Coverage Notice Reviewer: NAYLA Carrasquillo Notice Issued Date-Time: 05/25/2019 14:05 Notice Type: Patient Choice Letter Notice Delivered To: Patient Relationship to Patient: Gaming Associate Name: Delivery Method: HAND - Hand Delivered Marry Days: Prior Verbal Notification: Recipient Understood Notice: Yes Recipient Signature: Yes Med Rec Note Co-signed by Attending: Coverage Notice Comment: [facility]- VISIT[facility] Reviewer: NAYLA Carrasquillo Notice Issued Date-Time: 05/31/2019 14:50 Notice Type: Patient Choice Letter Notice Delivered To: Patient Relationship to Patient: Gaming Associate Name: Delivery Method: HAND - Hand Delivered Marry Days: Prior Verbal Notification: Recipient Understood Notice: Yes Recipient Signature: Yes Med Rec Note Co-signed by Attending: Coverage Notice [facility] Reviewer: NAYLA Carrasquillo Notice Issued Date-Time: 06/09/2019 9:55 Notice Type: Patient Choice Letter Notice Delivered To: Patient Relationship to Patient: Gaming Associate Name: Delivery Method: HAND - Hand Delivered Marry Days: Prior Verbal Notification: Recipient Understood Notice: Yes Recipient Signature: Yes Med Rec Note Co-signed by Attending: Coverage Notice Comment: [facility] OR ANY ACCEPTING [facility] FACLITY Reviewer: NAYLA Carrasquillo Notice Issued Date-Time: 06/10/2019 16:25 Notice Type: Patient Choice Letter Notice Delivered To: Patient Relationship to Patient: Gaming Associate Name: Delivery Method: HAND - Hand Delivered Marry Days: Prior Verbal Notification: Recipient Understood Notice: Yes Recipient Signature: Yes Med Rec Note Co-signed by Attending: Coverage Notice Comment: MASTER BRIGETTE Piña DP export: 06/15/19 3:36 Patient Name: TROY HAYWOOD Page [id number] at 1708 All edits/amendments must be made on the electronic document DICTATION DATE: 06/16/191706 ELECTRONIC GLUER: MISHEL 06/16/191706 RPT#: [id number] DC DATE: STATUS: ADM IN [facility] [address] [place] [address] END OF REPORT
[2019-06-16 17:30] VITALS: BP 121/51
--- NOTE | 2019-06-16 19:10 | NUR ---
BEDSIDE REPORT RECEIVED FROM DAY SHIFT, PT CARE ASSUMED. WROTE NAME ON BOARD. PT SITTING UP IN BED, AAOX4, DENIES ANY NEEDS AT THIS TIME. BED IN LOWEST POSITION, SR X3, CALL LIGHT WITHIN REACH. WILL CONTINUE TO MONITOR.
[2019-06-16 20:00] VITALS: BP 106/38
[2019-06-17 04:00] VITALS: BP 119/49
[2019-06-17 05:07] LABS: BASOPHILS 0.6 % (0-2); EOSINOPHILS 12.7 % (0-7); HEMATOCRIT 32.1 % (36.0-48.0); HEMOGLOBIN 9.2 g/dL (12-16); IMMATURE GRANULOCYTES 0.2 % (0-5); LYMPHOCYTES 24.1 % (15-50); MCH 26.7 pg (26.0-34.0); MCHC 28.7 g/dL (31.0-37.0); MEAN PLATELET VOLUME 10.5 fL (7.4-10.4); MONOCYTES 16.9 % (2-11); NEUTROPHILS 45.5 % (40-80); PLATELET COUNT 268 10x3/uL (130-400); RBC 3.45 10x6/uL (4.00-5.40); RDW 18.2 % (11.5-14.5); WBC 4.7 10x3/uL (4.8-10.8)
[2019-06-17 05:14] LABS: ANION GAP 6.8 mmol/L (8-16); CARBON DIOXIDE 36.5 mmol/L (21.0-32.0); CREATININE - SERUM 1.4 mg/dL (0.6-1.3); MAGNESIUM - SERUM 1.5 mg/dL (1.8-2.4); POTASSIUM - SERUM 3.3 mmol/L (3.5-5.1)
--- NOTE | 2019-06-17 07:47 | NUR ---
A/A/OX4. STATES SHE HAS RECEIVED SOME RELIEF FROM THE TYLENOL GIVEN EARLIER AND IS RESTIG EASIER. NO REQUESTS VOICED, TRIPLE LUMEN CVL IN PLACE TO RIGHT IJ WITH DRESSING C/D/I. BALLARD PATENT AND DRAINING LIGHT YELLOW URINE TO BEDSIDE DRAINAGE AND REFUSES STAT LOCK. 02 ON PER N/C AT 3L/M WITHOUT ANY SOB OR RESP DISTRESS NOTED. ASSESSMENT COMPLETED AND WILL CONTINUE POC.
[2019-06-17 08:00] VITALS: BP 102/50
--- NOTE | 2019-06-17 09:43 | MORECARE ---
CASE MANAGEMENT DISCHARGE SUMMARY PATIENT: TROY HAYWOOD UNIT: [id number] ADM DATE: 05/14/19 AGE: 64 : 57 SEX: F ROOM/BED: D.2140 AUTHOR: IRON NAYLOR PHYSICIAN: REFERRING PHYSICIAN: FABIO PINEDA MD DATE OF SERVICE: 06/17/19 Discharge Plan Patient Name: TROY HAYWOOD Facility: [facility]:[place] : 1955 Planned Disposition: Nursing Facility YUN Cert Anticipated Discharge Date: 06/11/19 Discharge Date: Expected LOS: 28 Initial Reviewer: [id number] Initial Review Date: 05/19/2019 Generated: 06/17/19 10:43 am Comments DCP- Discharge Planning Updated by [id number]: Sandor Butt on 06/17/19 8:[address] Patient Name: TROY HAYWOOD Encounter No: [id number] : 1955 Primary Insurance: [place] Anticipated DC Date: 06-11-2019 Planned Disposition: Nursing Facility YUN Cert External Planned Provider: FIRST ACCEPTING FACILITY DCP follow-up note: CM ATTEMPTED TO EMAIL [facility] [facility] ([place]) FOR UPDATE ON APPLICATION AT [email or web address]. THE EMAIL FAILED. CM FAXED REQUEST FOR UPDATE TO [employer] AT [phone] AND [phone]. - CM WAITING ADMISSION DETERMINATION FROM [facility] FOR ELECTROMECHANICAL EQUIPMENT ASSEMBLER CARE PLACEMENT IN ONE OF HER AFFILIATED NURSING HOMES. - CM WAITING RETURN CALL FROM [facility] IN [facility]. - CM WAITING DETERMINATION FROM [facility] FOR ELECTROMECHANICAL EQUIPMENT ASSEMBLER CARE PLACEMENT IN ONE OF HER AFFILIATED NURSING HOMES. Sandor Butt, CASE MANAGEMENT Sandor Butt DCP- Discharge Planning Updated by [id number]: Sandor Butt on 06/16/19 4:[address] Patient Name: TROY HAYWOOD Encounter No: [id number] : 1955 Primary Insurance: [place] Anticipated DC Date: 06-11-2019 Planned Disposition: Nursing Facility YUN Cert External Planned Provider: FIRST ACCEPTING FACILITY DCP follow-up note: CM FAXED REFERRAL UPDATE TO [facility] FOR DETENTION CARE PLACEMENT AT [phone]. CM FAXED REFERRAL UDPATE TO [facility] AT [phone]. CM FAXED UPDATE TO [facility] AT [phone] FOR ELECTROMECHANICAL EQUIPMENT ASSEMBLER CARE PLACEMENT. - CM WAITING ADMISSION DETERMINATION FROM [facility] FOR ELECTROMECHANICAL EQUIPMENT ASSEMBLER CARE PLACEMENT IN ONE OF HER AFFILIATED NURSING HOMES. - CM WAITING RETURN CALL FROM [facility] INPATIENT REH[facility] IN [place] REGARDING TREY REHAB. - CM WAITING DETERMINATION FROM [facility] FOR ELECTROMECHANICAL EQUIPMENT ASSEMBLER CARE PLACEMENT IN ONE OF HER AFFILIATED NURSING HOMES. Sandor Butt, CASE MANAGEMENT DCP- Discharge Planning Updated by [id number]: Sandor Butt on 06/15/19 3:[address] Patient Name: TROY HAYWOOD Encounter No: [id number] : 1955 Primary Insurance: [place] Anticipated DC Date: 06-11-2019 Planned Disposition: Nursing Facility [facility] External Planned Provider: FIRST ACCEPTING DCP follow-up note: CM SENT MESSAGE TO [facility]OY [facility], , OF [facility] ASKING FOR ELECTROMECHANICAL EQUIPMENT ASSEMBLER CARE PLACEMENT ASSISTANCE WITH REHAB IF POSSIBLE. CM FAXED REFERRAL TO [facility]OY AT [phone]. CM CALLED [facility] IN [facility], , HE HAS NOT BEEN ABLE TO GET A DETERMINATION ON TREY AND CANNOT LOCATE THE PERSON IN CORPORATE WHO HAS PT'S TREY APPLICATION. HE WILL CONTINUE TO TRY TO LOCATE WHO IS PROCESSING THE APPLICATION HE HAS NOT SEEN IT OR HEARD ANY DETERMINATION. CHRISTOPHER FAXED REFERRAL UDPATE TO [facility] AT [phone]. M FAXED UPDATE TO [facility] AT [phone]. CHAR INFORMED CHRISTOPHER THAT SHE HAS NO BERIATRIC RESIDENTIAL BED YET BUT IS HOPEUL TO HAVE AN OPENING "SOON". ASKED BY PT'S DAUGHTER, CM CALLED AND SPOKE TO URT, , OF [facility] AND REQUESTED PRIVATE PAY DOWN PAYMENT AND MONTHLY PAYMENT AMOUNTS FOR REHAB AT [facility]. CM FAXED REFERRAL TO [facility] AT [phone]. - CM WAITING ADMISSION DETERMINATION FROM [facility] FOR ELECTROMECHANICAL EQUIPMENT ASSEMBLER CARE PLACEMENT IN ONE OF HER AFFILIATED NURSING HOMES. - CM WAITING RETURN CALL FROM [facility] INPATIENT REH[facility] IN [place] REGARDING TREY REHAB. - CM WAITING DETERMINATION FROM [facility] FOR ELECTROMECHANICAL EQUIPMENT ASSEMBLER CARE PLACEMENT IN ONE OF HER AFFILIATED NURSING HOMES. Sandor Butt, CASE MANAGEMENT Appended by Sandor Butt on 06/15/2019 16:28 CELL TUBER HAND: [facility] CM SPOKE TO TROY OF [facility] WHO EXPLAINED SHE IS CONTINUING TO LOOK FOR RESIDENTIAL PLACEMENT; THE OBSTACLE IS THE COSTS OF RENTING BIPAP AND OTHER BERIATRIC EQUIPMENT. CM SPOKE TO RUT OF [facility] IN[facility] RE[facility], THEY WILL NOT CONSIDER PATIENT FOR REHAB ON PRIVATE PAY BASIS AND WOULD DENY PATIENT REGARDLESS DUE TO HER "ENTIRE SITUATION". CM NOTIFIED PT AND DAUGHTER IN ROOM OF PROGRESS AND LACK THEREOF. CM ASKED TO SEND REFERRALS TO OTHER NURSING FACILITIES, PT REFUSED STATING SHE WANTS TO WAIT FOR DEFINITE ANSWER FROM [facility] FOR TREY REHAB SERVICES. - CM WAITING ADMISSION DETERMINATION FROM [facility] FOR ELECTROMECHANICAL EQUIPMENT ASSEMBLER CARE PLACEMENT IN ONE OF HER AFFILIATED [facility]. - CM WAITING RETURN CALL FROM [facility] INPATIENT REH[facility] IN [place] REGARDING TREY REHAB. - CM WAITING DETERMINATION FROM [facility] FOR ELECTROMECHANICAL EQUIPMENT ASSEMBLER CARE PLACEMENT IN ONE OF HER AFFILIATED [facility]. Sandor Butt, CASE MANAGEMENT DCP- Discharge Planning Updated by [id number]: Sandor Butt on 06/11/19 3:[address] Patient Name: TROY HAYWOOD Encounter No: [id number] : 1955 Primary Insurance: [place] Anticipated DC Date: 06-11-2019 Planned Disposition: Nursing Facility YUN Cert External Planned Provider: : DCP follow-up note: CM RECEIVED MESSAGE FROM TROY OF [facility], THEY WILL NOT ACCEPT PT. CM FAXED REFERRAL UDPATE TO [facility] AT [phone]. CM FAXED UPDATE TO [facility] AT [phone]. CHAR INFORMED CM THAT SHE ANTICIPATES A BERIATRIC RESIDENTIAL BED OPENING "SOON". CM NOTIFIED PT AND DAUGHTER OF PROGRESS / LACK THEREOF IN ROOM. - CM WAITING ADMISSION DETERMINATION FROM [facility] FOR DETENTION CARE PLACEMENT IN ONE OF HER AFFILIATED NURSING HOMES. - CM WAITING RETURN CALL FROM [facility] INPATIENT REH[facility] IN [place] REGARDING TREY REHAB. ROSANNA Montaño MANAGEMENT DCP- Discharge Planning Updated by [id number]: Sandor Butt on 06/10/19 3:[address] Patient Name: TROY HAYWOOD Encounter No: [id number] : 1955 Primary Insurance: [place] Anticipated DC Date: 06-11-2019 Planned Disposition: Nursing Facility YUN Cert External Planned Provider: FIRST ACCEPTING FACILITY DCP follow-up note: - CM RECEIVED CALL FROM [facility], THEY HAVE NOT AVAILABILITY FOR TREY REHAB BED. CM RECEIVED CALL FROM MITCH OF [facility] IN [facility], THEY HAVE NOT RECEIVED TREY APPLICATION AND HAVE NO CURRENT BEDS BUT WOULD CONSIDER PT. CM RETURNED CALL TO MITCH AT [facility], , INFORMED THAT TREY [facility], TELEPHONE CONTACT [phone]. HETAL ASKED FOR REFERRAL TO BE SENT AND HE WILL SCREEN FOR ADMISSION. CM FAXED REFERRAL TO [facility] AT [phone]. CM NOTIFIED PT AND DAUGHTER OF PROGRESS IN ROOM. PT AND DAUGHTER ASKED FOR CM TO SEND REFERRAL TO [facility] IN [place]. CHOICE SIGNED. CM FAXED REFERRAL TO [facility] VIA [facility] AT [phone]. - CM WAITING ADMISSION DETERMINATION FROM [facility] FOR ELECTROMECHANICAL EQUIPMENT ASSEMBLER CARE PLACEMENT IN ONE OF HER AFFILIATED NURSING HOMES. - CM WAITING RETURN CALL FROM [facility] INPATIENT REH[facility] IN [place] REGARDING TREY REHAB. - CM WAITING ADMISSION DETERMINATION FROM [facility]. Sandor Butt CASE MANAGEMENT DCP- Discharge Planning Updated by [id number]: Sandor Butt on 06/09/19 3:[address] Patient Name: TROY HAYWOOD Encounter No: [id number] : 1955 Primary Insurance: [place] Anticipated DC Date: 06-10-2019 Planned Disposition: Nursing Facility YUN Cert External Planned Provider: FIRST ACCEPTING FACILITY DCP follow-up note: CM SPOKE TO PT AND DAUGHTER, CHEPE, THEY WILL LET CM SEEK RESIDENTIAL PLACEMENT FOR THEM TO CONSIDER BUT STILL DO NOT WANT DETENTION CARE IF THEY CAN OBTAIN REHAB THROUGH [facility]. DAUGHTER ADVISED SHE HAS CONFIRMED RECEIPT OF THE APPLICATION FAXED TO [facility] AND IS IN PROCESS OF REVIEW. DAUGHTER ASKED CM TO CHECK INTO REHAB'S THAT MAY HAVE SISTERBARRY AFFILIATION. CM CALLED [facility], , REQUESTED ASSISTANCE IN ELECTROMECHANICAL EQUIPMENT ASSEMBLER CARE PLACEMENT WITH INTENT TO RETURN HOME. CHAR STATES THAT SHE MAY HAVE HOME'S WILL ACCEPT BARIATRIC PATIENT AND WILL ATTEMPT PLACEMENT. CHAR WILL MEET WITH PT LATER TODAY. CM FAXED REFERRAL TO [facility] AT [phone]. CM SPOKE TO TROY [facility] OF [facility], TROY INFORMED CM THAT SHE HAS NO HOMES IN HER GROUP THAT MAY ASSIST WITH PLACEMENT. CM CALLED [facility], WAS ADVISED BY RUT THAT THEY WILL NOT CONSIDER FOR TREY CARE, THEY ARE NOT AFFILIATED WITH [facility]. CM CALLED [facility], , SPOKE TO CHELO WHO INFORMED CM THAT THEY ARE NOT AFFILIATED WITH [facility] BUT WILL CONSIDER PT FOR TREY REHAB. CM FAXED REFERRAL TO [facility] AT [phone]. CM CALLED [facility] IN [place], , SPOKE TO DHEERAJ WHO REPORTS THEY HAVE NO OPEN REHAB BEDS AND HAVE NO PROJECTED DISCHARGES SOON. THEY DO NOT HAVE WEIGHT LIMITS. DHEERAJ DID NOT WANT REFERRAL FAXED, SHE WILL REPORT TO BREN WHO WILL CHECK WITH [facility] REGARDING APPLICATION STATUS AND CALL CM TOMORROW, 06-10-19. CM NOTIFIED PT IN ROOM OF PROGRESS. PT STATES SHE MAY BE ABLE TO TRANSFER SELF AND GO HOME BEFORE CM FINDS REHAB FOR HER. - CM WAITING ADMISSION DETERMINATION FROM [facility] FOR ELECTROMECHANICAL EQUIPMENT ASSEMBLER CARE PLACEMENT IN ONE OF HER AFFILIATED NURSING HOMES. - CM WAITING ADMISSION DETERMINATION FROM [facility] FOR TREY REHAB BED. - CM WAITING RETURN CALL FROM [facility] IN [place] REGARDING TREY REHAB. Sandor Butt, CASE MANAGEMENT DCP- Discharge Planning Updated by [id number]: Sandor Butt on 06/04/19 4:[address] Patient Name: TROY HAYWOOD Encounter No: [id number] : 1955 Primary Insurance: [place] Anticipated DC Date: 06-02-2019 Planned Disposition: Nursing Facility YUN Cert External Planned Provider: TO BE DETERMINED DCP follow-up note: CM SPOKE TO PT AND DAUGHTER CHEPE, IN ROOM. PT IS AND FOR PAST 10 YEARS, BUT NOT LEGALLY. THEY CANNOT QUALIFY FOR MEDICAID FOR ELECTROMECHANICAL EQUIPMENT ASSEMBLER CARE DUE TO NOT HAVING SPOUSE FINANICAL INFORMATION. PT AND DAUGHTER BOTH STATE THAT THEY DO NOT WANT TO PUT PT INTO ELECTROMECHANICAL EQUIPMENT ASSEMBLER RESIDENTIAL CARE WHERE SHE WILL JUST LAY IN THE BED. THEY DO NOT WANT FURTHER RESIDENTIAL REFERRALS FAXED OUT. CM DISCUSSED THAT PT IS STABLE FOR DISCHARGE MEDICALLY. PT'S DAUGHTER REPORTS PT IS NOT HAVING BOWEL MOVEMENTS AND THAT THE FECES COMING OUT IS COMING AROUND AN IMPACTION AND NO ONE IS ADDRESSING THIS. CM NOTIFIED TOBY THOMAS WHO PROVIDED ORDERS FOR MEDICATION TO TREAT CONDITION. BEDSIDE NURSE NOTIFIED. PT'S DAUGHTER PROVIDED CM WITH 77 PAGES AND ASKED CM TO FAX TO [facility] FOR FINANCIAL ASSISTANCE REGARDING REHAB SERVICES FOR PT. CM FAXED TO [facility] FINANCIAL ASSISTANCE PROGRAM AT [phone]. PT'S DAUGHTER ADVISED THAT IF APPROVED, PT WILL HAVE TO GO TO A [facility] CENTER FOR REHAB. PT WAS DECLINED ELECTROMECHANICAL EQUIPMENT ASSEMBLER CARE PLACEMENT AT [facility]; PT AND FAMILY DECLINE TO HAVE FURTHER REFERRALS SENT OUT. FAMILY IS TRYING TO SECURE FINANCIAL ASSISTANCE FOR REHAB SERVICES THROUGH [facility]. CM TO CONTINUE TO FOLLOW AND ASSIST. Sandor Butt, CASE MANAGEMENT DCP- Discharge Planning Updated by [id number]: Sandor Butt on 06/04/19 11:[address] Patient Name: TROY HAYWOOD Encounter No: [id number] : 1955 Primary Insurance: [place] Anticipated DC Date: 06-02-2019 Planned Disposition: Nursing Facility YUN Cert External Planned Provider: WAITING FAMILY DECISION DCP follow-up note: CM RECEIVED CALL FROM [facility] WHO ADVISED CM THAT PT HAS BEEN FIANCIALLY DENIED FOR PLACEMENT. CM SPOKE TO PT IN ROOM WHO ADVISED THAT SHE UNDERSTOOD THEY WERE JUST GOING TO LEAVE HER LAYING IN BED FOR A MONTH AND NOT GIVE HER ANY REHAB SERVICES. CM EXPLAINED THAT MEDICAID DOES NOT PAY FOR REHAB SERVICES, ONLY ELECTROMECHANICAL EQUIPMENT ASSEMBLER CARE AND PT WOULD RECEIVE WHAT THEY CALL "RESTORATIVE CARE" FROM STAFF AT ANY RESIDENTIAL, NOT THERAPY SERVICES. PT STATES SHE IS NOW ABLE TO STAND UP WITH THERAPY HERE. CM EXPLAINED THAT PT IS GETTING 8 TO 16 MINUTES OF THERAPY PER DAY AND THAT ALTHOUGH CM WAS HAPPY WITH PROGRESSION, PT IS MEDICALLY STABLE TO LEAVE THE HOSPITAL AND THAT SHE WOULD RECEIVE MORE THERAPY AT HOME WITH HOME HEALTH THAN IN THIS ACUTE HOSPITAL SETTING. PT STATES SHE IS NOT SURE WHAT HAPPENED, THAT CHEPE IS TAKING CARE OF THIS FOR HER AND THAT CHEPE WILL BE TO THE HOSPITAL IN A LITTLE WHILE TO SPEAK TO CM; PT BELIVES THAT CHEPE IS AGAIN WORKING ON TRYING TO GET TREY REHAB CARE THROUGH THE [employer] [facility]. PT HAS BEEN FINANCIALLY DECLINED FOR DETENTION CARE PLACEMENT BY [facility]. PT DEFERRING PLANNING TO HER DAUGHTER, CHEPE. CM WAITING FAMILY TO ARRIVE TO DISCUSS FURTHER DISCHARGE PLANNING. Sandor Butt CASE MANAGEMENT DCP- Discharge Planning Updated by [id number]: Sandor Butt on 06/03/19 7:[address] Patient Name: TROY HAYWOOD Encounter No: [id number] : 1955 Primary Insurance: [place] Anticipated DC Date: 06-02-2019 Planned Disposition: Nursing Facility YUN Cert External [facility] Provider[facility] DET[facility]ION C[facility] MEDICAID BED DISCHARGE PLANNING NOTE: CM FAXED REFERRAL UPDATE TO [facility] AT [phone]. CM WAITING ADMISSION DETERMINATION FROM [facility] FOR ELECTROMECHANICAL EQUIPMENT ASSEMBLER CARE. WAITING FAMILY TO PROVIDE FINANCIAL INFORMATION FOR DETENTION CARE MEDICAID APPLICATION TO FACILITY. Sandor Butt CASE MANAGEMENT DCP- Discharge Planning Updated by [id number]: Sandor Butt on 06/02/19 3:[address] Patient Name: TROY HAYWOOD Encounter No: [id number] : 1955 Primary Insurance: [place] Anticipated DC Date: 06-02-2019 Planned Disposition: Nursing Facility YUN Cert External Planned Provider: [facility] DETENTION CARE MEDICAID BED DCP follow-up note: CM FAXED REFERRAL UPDATE TO [facility] AT [phone]. CM WAITING ADMISSION DETERMINATION FROM [facility] FOR DETENTION CARE. Sandor Butt, CASE MANAGEMENT Appended by Sandor Butt on 06/02/2019 16:50 CELL TUBER HAND: CM RECEIVED CALL FROM LUIS OF [facility], , THEY RECEIVED THE UPDATE BY FAX AND WILL CONTACT FAMILY REGARDING FINANCIALS. [facility] REPORTS THEY ARE STILL WAITING ON NURSING TO ACCEPT FOR DETENTION CARE AND WILL ALSO NEED FINANCIAL CLEARANCE TO ENTER THE FACILITY. CM WAITING ADMISSION DETERMINATION FROM [facility] FOR ELECTROMECHANICAL EQUIPMENT ASSEMBLER CARE. [facility] CONTACTING FAMILY TO ASSIST WITH FINANCIAL INFORMATION FOR DETENTION CARE MEDICAID APPLICATION. Sandor Butt CASE MANAGEMENT DCP- Discharge Planning Updated by [id number]: Sandor Butt on 06/01/19 4:[address] Patient Name: TROY HAYWOOD Encounter No: [id number] : 1955 Primary Insurance: [place] Anticipated DC Date: 06-02-2019 Planned Disposition: Nursing Facility YUN Cert External Planned Provider: [facility] MEDICAID BED DCP follow-up note: CM MET WITH PT AND DAUGHTER HOUSTON, WHO HAS MADE IT FROM [place]. UPDATE PROVIDED. CM CALLED [facility], [place] INFORMED CM THAT REFERRAL FROM [facility] WAS RECEIVED, STAFF IN MEETING TODAY AND THEY WILL FINISH ADMISSION REVIEW TOMORROW, 06-02-19. CM NOTIFIED PT AND DAUGHTER IN ROOM. CM WAITING ADMISSION DETERMINATION FROM [facility] FOR DETENTION CARE. Sandor Butt CASE MANAGEMENT DCP- Discharge Planning Updated by [id number]: Sandor Butt on 05/31/19 3:[address] Patient Name: TROY HAYWOOD Encounter No: [id number] : 1955 Primary Insurance: [place] Anticipated DC Date: 06-01-2019 Planned Disposition: Nursing Facility YUN Cert External Planned Provider: [facility] ELECTROMECHANICAL EQUIPMENT ASSEMBLER [facility] MEDICAID BED DCP follow-up note: AFTER SEVERAL VISITS WITH PT IN ROOM, PHONE CALLS WITH DAUGHTERS, [employer] [facility], PT DECIDED TO CONSENT TO 30 DAYS OF ELECTROMECHANICAL EQUIPMENT ASSEMBLER CARE AT [facility] AFTER PT'S DAUGTHERS, WITH AIDE OF [facility], LOCATED [facility] WHO WILL CONSIDER PT FOR CARE. PT SIGNED CHOICE. CM FAXED REFERRAL INFORMATION TO [facility] AT [phone]. CM WAITING ADMISSION DETERMINATION FROM [facility] FOR ELECTROMECHANICAL EQUIPMENT ASSEMBLER CARE. ROSANNA Montaño DCP- Discharge Planning Updated by [id number]: Sandor Butt on 05/28/19 3:[address] Patient Name: RTOY HAYWOOD Encounter No: [id number] : 1955 Primary Insurance: [place] Anticipated DC Date: 06-02-2019 Planned Disposition: Home with Home Health External Planned Provider: [employer] [facility] DCP follow-up note: CM RECEIVED CALL FROM PT'S DAUGHTER, CHEPE, WHO VERIFIED THAT SHE WILL COME NEXT WEEK TO STAY WITH PT FOR TWO OR THREE WEEKS TO CARE FOR PT AT HOME. CHEPE WILL DISCUSS WITH HER MOTHER THAT SHE WILL HAVE TO BE ABLE TO STAND AND TRANSFER FOR CHEPE TO CARE FOR HER. CM REVIEWED THERAPY NOTES TO PRESENT. 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 PT HAS BEDSIDE COMMODE AND WHEELCHAIR AT HOME. CHEPE REPORTS NEED OF [facility] RES[facility]TION. CHEPE WILL DISCUSS WITH PT AND TRY TO MOTIVATE HER TO MEET THERAPY GOALS PRIOR TO ARRIVAL ON NEXT FRIDAY OR FRIDAY. PT'S DAUGHTER PLANS TO TAKE PT HOME NEXT FRIDAY OR FRIDAY, THEY WILL NEED [facility], DENIES FURTHER NEEDS. CM TO FOLLOW AND ASSIST NEEDED. ROSANNA Montaño DCP- Discharge Planning Updated by [id number]: Sandor Butt on 05/28/19 2:[address] Patient Name: TROY HAYWOOD Encounter No: [id number] : 1955 Primary Insurance: [place] Anticipated DC Date: Planned Disposition: Nursing Facility [facility] External Planned Provider: TO BE DETERMINED DCP follow-up note: CM SPOKE TO [facility], SHE INFORMED CM THAT UPDATES HAVE BEEN RECEIVED, PT IS NOT MAKING ENOUGH PROGRESS WITH THERAPY THAT THEY DO NOT BELIEVE THAT PT WILL BE ABLE TO ACHIEVE THERAPY GOALS IN THE REMAINING 10 DAYS OF ACUTE DAYS THAT PT HAS REMAINING. CM NOTIFIED PT AND PROVIDED PT WITH NURSING FACILITY LISTING OF ALL AVAILABLE FACILITIES WITHIN [address] [place]. PT WILL SPEAK TO HER DAUGHTER AND NOTIFY CM OF HER CHOICES. CM CALLED [facility], , TWICE; AUTOMATED MESSAGE INFORMED CM THAT THE NUMBER WAS RESTRICTED OR CURRENTLY UNAVAILABLE. CM WAITING PT AND FAMILY TO PROVIDE NURSING FACILITY CHOICES FOR DETENTION CARE. Sandor Butt, CASE MANAGEMENT Appended by Sandor Butt on 05/28/2019 12:07 CDT: CM SPOKE TO PT IN ROOM, NOTIFIED PT THAT CM TRIED AND COULD NOT REACH DAUGHTER HOUSTON VIA PHONE. PT REPORTS SHE SPOKE TO [facility] WHO TOLD HER THAT [facility] WILL NOT TAKE HER DUE TO WEIGHT; PT'S DAUGHTER TOLD PT THAT [facility] PROBAB[facility] WILL NOT TAKE HER. PT REPORTS THERE IS ONE IN [place] THAT MIGHT CONSIDER HER. CM OFFERED CHOICE FORM FOR SIGNATURE SO THAT CM COULD SEND REFERRALS AND BEGIN CALLING TO FIND PLACEMENT. PT REFUSED AND STATES SHE HAS A DAUGHTER, CHEPE, WHO IS A REGISTERED NURSE, THAT MAY BE COMING TO TAKE CARE OF PT AT HOME. PT'S DAUGHTER HOUSTON IS CALLING DAUGHTER CHEPE TO DISCUSS THE OPTION. PT STATES SHE WILL LET CM KNOW THE OUTCOME AND IF SHE WANTS CM TO EXPLORE RESIDENTIAL CARE FOR HER. CM WAITING PT AND FAMILY TO PROVIDE NURSING FACILITY CHOICES AND FOR PT TO SIGN CONSENT FOR RESIDENTIAL PLACEMENT. PT IS NOW HOPEFUL THAT HER DAUGHTER WHO IS A REGISTERED NURSE WILL COME AND STAY WITH PT AND TAKE CARE OF HER AT HOME. SANDOR BUTT, CASE MANAGEMENT Appended by Sandor Butt on 05/28/2019 14:27 CDT: CM RECEIVED MESSAGE THAT PT WANTS TO SEE CM. CM MET WITH PT IN ROOM WHO INFORMED CM THAT SHE HIS NOT GOING TO A RESIDENTIAL, THAT HER DAUGHTER, CHEPE, WHO IS A NURSE, WILL BE HERE NEXT FRIDAY TO TAKE HER HOME AND WILL TAKE CARE OF PT AT HOME. PT ASKED FOR [employer] [facility] RESUMPTION. CM DISCUSSED POSSIBLE NEED OF [facility] [employer] AND ASKED ABOUT ADDITIONAL EQUIPMENT. PT THINKS BY NEXT WEEK, SHE WILL BE ABLE TO TRANSFER WITHOUT AIDE OF LIFT DEVICE. CM NOTIFIED DR. FREEDMAN WHO INFORMED CM THAT HE WILL ORDER BLOOD GAS ON FRIDAY TO DETERMINE RESPIRATORY DISCHARGE NEEDS AT THAT TIME. PT HAS SIGNED RIGHT OF CHOICE FOR [facility] ALREADY. PT REPORTS HER DAUGHTER, WHO IS A REGISTERED NURSE, WILL BE HERE FRIDAY OF NEXT WEEK TO TAKE CARE OF PT AT HOME. PT PLANS TO DISCHARGE HOME WITH FAMILY AND [facility]. CM TO FOLLOW AND ASSIST NEEDED. ROSANNA MONTAÑO DCP- Discharge Planning Updated by [id number]: Sandor Butt on 05/28/19 7:[address] Patient Name: TROY HAYWOOD Encounter No: [id number] : 1955 Primary Insurance: MEDICAID [place] Anticipated DC Date: Planned Disposition: Inpatient Rehab External Planned Provider: [facility] DCP follow-up note: CM FAXED REFERRAL UPDATE TO [facility] AT [phone]. CM WAITING ADMISSION DETERMINATION FROM [facility] IN [place]. ROSANNA Montaño DCP- Discharge Planning Updated by [id number]: Sandor Butt on 05/27/19 2:[address] Patient Name: TROY HAYWOOD Encounter No: [id number] : 1955 Primary Insurance: MEDICAID [place] Anticipated DC Date: Planned Disposition: Inpatient Rehab External Planned Provider: [facility] DCP follow-up note: CM FAXED REFERRAL UPDATE TO [facility] AT [phone]. CM WAITING ADMISSION DETERMINATION FROM [facility] IN [place]. Sandor Butt CASE MANAGEMENT Appended by Sandor Butt on 05/27/2019 14:41 CDT: CM CALLED [facility], , LEFT MESSAGE ASKING FOR UPDATE ON REFERRAL AND TO KNOW IF THEY ARE STILL CONSIDERING PT FOR REHAB. CM WAITING ADMISSION DETERMINATION FROM [facility] IN [place]. Sandor Butt CASE MANAGEMENT DCP- Discharge Planning Updated by [id number]: Jesica Cartagena on 05/26/19 4:[address] Patient requested Trapeze bar to allow her to sit up in hospital bed. CM spoke Dr. Lawson and obtained approval for Trapeze bar. CM notified Radha in materials management of request for Trapeze bar. CM completed and gave Radha the order form for the Trapeze bar. Trapeze bar will be delivered. CM notified patient's CM, Christiano Butt, on status of Trapeze bar. DCP- Discharge Planning Updated by [id number]: Sandor Butt on 05/26/19 3:[address] Patient Name: TROY HAYWOOD Encounter No: [id number] : 1955 Primary Insurance: MEDICAID [employer] Date: Planned Disposition: Inpatient Rehab External Planned Provider: [facility] DCP follow-up note: CM SPOKE TO PT'S DAUGHTER VIA PHONE, HOUSTON SALGADO, . CM OBTAINED PERMISSION FROM PT TO DISCUSS CARE, TREATMENT AND DISCHARGE PLANNING WITH HOUSTON. HOUSTON INFORMED CM THAT PT WAS IN REHAB AT [facility] LAST YEAR AND THEY WANT REFERRED TO [facility] AGAIN. CM DISCUSSED PT'S VERY LOW LEVEL OF PHYSICAL CONDITIONING. PT'S DAUGHTER FEELS THAT PT CAN PARTICIPATE WITH THERAPY WITH GOAL TO RETURN HOME PREVIOUS WITH ABILITY TO TRANSFER TO ELECTRIC SCOOTER AND HOME HEALTH FOR CONTINUED HOME SERVICES. HOUSTON VERIFIED THAT PT HAS NO ADULTS ABLE TO LIVE WITH AND ASSIST PT AT HOME AT THIS TIME. HOUSTON ASKED ABOUT [facility] REHAB SERVICES THAT MAY TAKE PT AT NO COSTS DUE TO INCOME. CM INFORMED HOUSTON THAT CM WAS NOT FAMILIAR WITH ANY OF THESE PROGRAMS. HOUSTON WOULD LIKE TO HAVE PT EVALUATED FOR REHAB AT [facility] PRIOR TO ANY CONSIDERATION OF RESIDENTIAL PLACEMENT PT WILL NOT GET THERAPY THERE. CM SPOKE TO PT WHO IS IN AGREEMENT WITH PLAN. CM CALLED [facility], , NOTIFIED OF REHAB REQUEST; PT HAS ONLY 24 ACUTE DAYS THAT STARTED IN JANUARY, IT DEPENDS ON HOW MANY HAVE BEEN ALREADY USED, PT'S CONDITION AND NEEDS THAT WOULD HAVE TO BE MET IN THE REMAINING DAYS THAT PT HAS TO USE FOR REHAB . CM FAXED REFERRALINFORMATION TO [facility] WITH CURRENT MAR AT [phone]. CM WAITING ADMISSION DETERMINATION FROM [facility] IN [place]. Sandor Butt, CASE MANAGEMENT Appended by Sandor Butt on 05/26/2019 15:24 CDT: CM MET WITH PT, GRANDDAUGHTER, DAUGHTER HOUSTON VIA PHONE WITH CM EYELETTER, UNIT NURSE [employer], REPIRATORY THERAPIST AND EYELETTER OF THERAPY SERVICES REGARDING DISCHARGE PLANNING. CONCERNS OF PT'S PLAN TO GO HOME IN CURRENT CONDITION DISCUSSED. PT AND DAUGHTER HAVE ALREADY ASKED FOR REFERRAL TO [facility], CM HAS SENT IT AND WAITING DETERMINATION. PLAN "B" WAS AGREED TO BE NURSING FACILITY IF NOT ACCEPTED TO [facility] AND THAT CM WOULD ATTEMPT TO FIND ONE THAT MAY DONATE REHAB SERVICES. PT'S DAUGHTER IS RESEARCHING [employer] FROM [employer] FOR REHAB SERVICES. CM WAITING ADMISSION DETERMINATION FROM [facility] IN [place]. Sandor Butt CASE MANAGEMENT DCP- Discharge Planning Updated by [id number]: Sandor Butt on 05/25/19 2:[address] Patient Name: TROY HAYWOOD Encounter No: [id number] : 1955 Primary Insurance: MEDICAID [employer] Date: Planned Disposition: Home HEALTH External Planned Provider: [facility], VISITING NURSES [facility] DCP follow-up note: CM MET WITH PT IN ROOM TO DISCUSS DISCHARGE NEEDS AND PLANNING. CM DISCUSSED AVAILABILITY OF HOME HEALTH, REHAB SERVICES AND MEDICAL EQUIPMENT. PT REFUSES CORRECTION FACILITY PLACEMENT. PT STATES PLAN TO RETURN HOME. 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 PT WAS ABLE TO AMBULATE SMALL DISTANCES AND TRANSFER SELF FROM BED TO ELECTRIC WHEELCHAIR AT HOME. PT THINKS SHE IS GOING TO BE ABLE TO TRANSFER SELF TO GO BACK HOME. PT WANTS HOME HEALTH RESUMED TO GO HOME. CM EXPRESSED CONCERN OF PT'S CURRENT LEVEL OF FUNCTIONING AND RETURNING HOME. PT DENIES HAVING FRIENDS OR FAMILY TO ASSIST WITH HER CARE AT HOME BUT IS NOT GOING TO A RESIDENTIAL. PT THINKS SHE WILL NEED AN AMBULANCE FOR TRANSPORT HOME HER ELECTRIC WHEELCHAIR IS THERE. CM EXPLAINED TO PT THAT SHE WILL NEED TO DEMONSTRATE WITH THERAPY THE ABILITY TO TRANSFER AND SIT IN CHAIR FOR DISCHARGE. PT STATED UNDRESTANDING. CHOICE FOR [facility] VISITING NURSES HOME HEALTH SIGNED. 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 PT REFUSED NURSING FACILITY PLACEMENT. PT WILL NEED TO DEMONSTRATE ABILITY TO TRANSFER AND SIT IN CHAIR FOR DISCHARGE SHE HAS ELECTRIC WHEELCHAIR AT HOME. CM TO ARRANGE HOME HEALTH RESUMPTION WITH [facility] VISITING NURSES [facility] FOR DISCHARGE HOME. CM TO CONTINUE TO FOLLOW AND ASSIST NEEDED. Sandor Butt CASE MANAGEMENT DCP- Discharge Planning Updated by [id number]: Aleisha Monroe on 05/19/19 7:[address] Patient Name: TROY HAYWOOD Admission Status: ER Accout number: [id number] Admission Date: 05-14-2019 : 1955 Admission Diagnosis: Attending: FABIO PINEDA Current LOS: 5 Anticipated DC Date: Planned Disposition: Home or Self Care Primary Insurance: MEDICAID [place] Discharge Planning Comments: CM met with patient and daughter to complete initial dc planning assessment. Patient recently extubated earlier today. CM educated patient on the CM role and verbal consent given by patient to complete assessment. Patient lives at home with her two young grand-daughters where she is independent with her care. At discharge patient plans to return home and feels this is a safe discharge. CM discussed availability of home health, rehab services, and medical equipment. Patient has Home 02 and HH with unknown providers. CM will f/u with patient @ later date to see if she is able to give providers. Patient denied known discharge needs at this time. CM will continue to follow and will assist as needed with dc plans/needs. Esol Instructor: Aleisha Monroe DCPIA - Discharge Planning Initial Assessment Updated by NAYLA: Sandor Butt on 05/28/19 9:36 am * How many steps to enter\\exit or inside your home? * PCP uncertain ? * Pharmacy Reading * Preadmission Environment Home with Family * ADLs Independent * Other Equipment HOME 02, WALKER, SCOOTER, BSC, SC * List name and contact numbers for known caregivers / representatives who currently or will assist patient after discharge: CHEPE SUN - DAUGHTER- [phone] HOUSTON SALGADO, DTR - [phone] * Verbal permission to speak to the caregivers and representatives has been obtained from the patient. Yes * Community resources currently utilized Home Health * Please name any agencies selected above. [facility] * Additional services required to return to the preadmission environment? No * Can the patient safely return to the preadmission environment? Yes * Has this patient been hospitalized within the prior 30 days at any hospital? No Coverage Notice Reviewer: [id number] Butt Notice Issued Date-Time: 05/25/2019 14:05 Notice Type: Patient Choice Letter Notice Delivered To: Patient Relationship to Patient: Heel Buffer Name: Delivery Method: HAND - Hand Delivered Marry Days: Prior Verbal Notification: Recipient Understood Notice: Yes Recipient Signature: Yes Med Rec Note Co-signed by Attending: Coverage Notice Comment: [facility]- VISITING NURSES [facility] ([facility]) Reviewer: NAYLA Butt Notice Issued Date-Time: 05/31/2019 14:50 Notice Type: Patient Choice Letter Notice Delivered To: Patient Relationship to Patient: Heel Buffer Name: Delivery Method: HAND - Hand Delivered Marry Days: Prior Verbal Notification: Recipient Understood Notice: Yes Recipient Signature: Yes Med Rec Note Co-signed by Attending: Coverage Notice [facility] Reviewer: NAYLA Butt Notice Issued Date-Time: 06/09/2019 9:55 Notice Type: Patient Choice Letter Notice Delivered To: Patient Relationship to Patient: Heel Buffer Name: Delivery Method: HAND - Hand Delivered Marry Days: Prior Verbal Notification: Recipient Understood Notice: Yes Recipient Signature: Yes Med Rec Note Co-signed by Attending: Coverage Notice Comment: [facility] OR ANY ACCEPTING CORRECTION FACLITY Reviewer: NAYLA Butt Notice Issued Date-Time: 06/10/2019 16:25 Notice Type: Patient Choice Letter Notice Delivered To: Patient Relationship to Patient: Heel Buffer Name: Delivery Method: HAND - Hand Delivered Marry Days: Prior Verbal Notification: Recipient Understood Notice: Yes Recipient Signature: Yes Med Rec Note Co-signed by Attending: Coverage Notice Comment: MASTER Piña DP export: 06/16/19 4:08 Patient Name: TROY HAYWOOD Page [id number] at 0943 All edits/amendments must be made on the electronic document DICTATION DATE: 06/17/19942 VACUUM PLASTIC FORMING MACHINE OPERATOR: MISHEL 06/17/19942 RPT#: [id number] [place] DATE: STATUS: ADM IN [facility] [address] [place] [address] END OF REPORT
[2019-06-17 12:00] VITALS: BP 113/49
--- NOTE | 2019-06-17 12:52 | NUR ---
OT NOTE: PT PERFORMED MUCH BETTER TODAY. WITH EXTENSIVE ENCOURAGEMENT AND SEVERAL TRIALS, PT WAS ABLE TO PERFORM SUPINE TO SIT WITHOUT ASSIST; ALSO ABLE TO PERFORM SIT TO STAND X 3 TRIALS WITH WALKER AND NO PHYSICAL ASSIST. PT REMAINS UNABLE TO MOVE FEET WHILE IN STANDING. REQUIRES TOTAL ASSIST FOR ALL TOILET HYGIENE AND LE DRESSING. UE EXS ON EOB AND WITH USE OF TRAPEZE BAR OVER BED. SAÚL ESCAMILLA, OTR/L
--- NOTE | 2019-06-17 14:47 | NUR ---
OT NOTE: PT DID VERY WELL TODAY AND REQUIRED LITTLE TO NO PHYSICAL ASSIST WITH BED MOB SUPINE TO SIT AND SIT TO STAND. PT INCREASED WITH STANDING ENDURANCE TO TWO MINUTES AND SEVEN SECONDS. PT REQUIRED TOTAL A WITH LB HYGIENE TASKS. PT DID REQUIRED MOD X2 FOR SIT TO SUPINE FOR LE MANAGEMENT. YIN VÁZQUEZ COTA
--- NOTE | 2019-06-17 15:07 | MORECARE ---
CASE MANAGEMENT DISCHARGE SUMMARY PATIENT: TROY HAYWOOD UNIT: [id number] ADM DATE: 05/14/19 AGE: 64 : 57 SEX: F ROOM/BED: D.2140 AUTHOR: DAYDAYDOC PHYSICIAN: REFERRING PHYSICIAN: FABIO PINEDA MD DATE OF SERVICE: 06/17/19 Discharge Plan Patient Name: TROY HAYWOOD Facility: [facility]:[place] : 1955 Planned Disposition: Nursing Facility YUN Cert Anticipated Discharge Date: 06/11/19 Discharge Date: Expected LOS: 28 Initial Reviewer: [id number] Initial Review Date: 05/19/2019 Generated: 06/17/19 4:07 pm Comments DCP- Discharge Planning Updated by [id number]: Sandor Butt on 06/17/19 8:[address] Patient Name: TROY HAYWOOD Encounter No: [id number] : 1955 Primary Insurance: [place] Anticipated DC Date: 06-11-2019 Planned Disposition: Nursing Facility YUN Cert External Planned Provider: FIRST ACCEPTING FACILITY DCP follow-up note: CM ATTEMPTED TO EMAIL [employer] FOR UPDATE ON APPLICATION AT [email or web address]. THE EMAIL FAILED. CM FAXED REQUEST FOR UPDATE TO [employer] AT [phone] AND [phone]. - CM WAITING ADMISSION DETERMINATION FROM [facility] FOR CHEMIST BIOLOGICAL CARE PLACEMENT IN ONE OF HER AFFILIATED NURSING HOMES. - CM WAITING RETURN CALL FROM [facility] IN [facility]. - CM WAITING DETERMINATION FROM TROY [facility]IM[facility] FOR LONGTERM CARE PLACEMENT IN ONE OF HER AFFILIATED NURSING HOMES. Sandor Butt, CASE MANAGEMENT Sandor Butt DCP- Discharge Planning Updated by [id number]: Sandor Butt on 06/16/19 4:[address] Patient Name: TROY HAYWOOD Encounter No: [id number] : 1955 Primary Insurance: [place] Anticipated DC Date: 06-11-2019 Planned Disposition: Nursing Facility YUN Cert External Planned Provider: FIRST ACCEPTING FACILITY DCP follow-up note: CM FAXED REFERRAL UPDATE TO [facility] FOR LONGTERM CARE PLACEMENT AT [phone]. CM FAXED REFERRAL UDPATE TO [facility] AT [phone]. CM FAXED UPDATE TO [facility] AT [phone] FOR LONGTERM CARE PLACEMENT. - CM WAITING ADMISSION DETERMINATION FROM [facility] FOR LONGTERM CARE PLACEMENT IN ONE OF HER AFFILIATED NURSING HOMES. - CM WAITING RETURN CALL FROM [facility] IN [place] REGARDING TREY REHAB. - CM WAITING DETERMINATION FROM [facility] FOR CHEMIST BIOLOGICAL CARE PLACEMENT IN ONE OF HER AFFILIATED NURSING HOMES. Sandor Butt, CASE MANAGEMENT DCP- Discharge Planning Updated by [id number]: Sandor Butt on 06/15/19 3:[address] Patient Name: TROY HAYWOOD Encounter No: [id number] : 1955 Primary Insurance: [place] Anticipated DC Date: 06-11-2019 Planned Disposition: Nursing Facility YUN [facility] External Planned Provider: FIRST ACCEPTING DCP follow-up note: CM SENT MESSAGE TO TROY MIMS, , OF [facility] ASKING FOR CHEMIST BIOLOGICAL CARE PLACEMENT ASSISTANCE WITH REHAB IF POSSIBLE. CM FAXED REFERRAL TO TROY AT [phone]. CM CALLED [facility] IN [facility], , HE HAS NOT BEEN ABLE TO GET A DETERMINATION ON TREY AND CANNOT LOCATE THE PERSON IN CORPORATE WHO HAS PT'S TREY APPLICATION. HE WILL CONTINUE TO TRY TO LOCATE WHO IS PROCESSING THE APPLICATION HE HAS NOT SEEN IT OR HEARD ANY DETERMINATION. CHRISTOPHER FAXED REFERRAL UDPATE TO [facility] AT [phone]. M FAXED UPDATE TO [facility] AT [phone]. CHAR INFORMED CHRISTOPHER THAT SHE HAS NO BERIATRIC PENITENTIARY BED YET BUT IS HOPEUL TO HAVE AN OPENING "SOON". ASKED BY PT'S DAUGHTER, CM CALLED AND SPOKE TO RUT, , OF [facility] AND REQUESTED PRIVATE PAY DOWN PAYMENT AND MONTHLY PAYMENT AMOUNTS FOR REHAB AT [facility]. CM FAXED REFERRAL TO [facility] AT [phone]. - CM WAITING ADMISSION DETERMINATION FROM [facility] FOR CHEMIST BIOLOGICAL CARE PLACEMENT IN ONE OF HER AFFILIATED NURSING HOMES. - CM WAITING RETURN CALL FROM [facility] IN [place] REGARDING TREY REHAB. - CM WAITING DETERMINATION FROM [facility] FOR LONGTERM CARE PLACEMENT IN ONE OF HER AFFILIATED NURSING HOMES. Sandor Butt, CASE MANAGEMENT Appended by Sandor Butt on 06/15/2019 16:28 BEAMING MACHINE OPERATOR: [facility]. CM SPOKE TO TROY OF [facility] WHO EXPLAINED SHE IS CONTINUING TO LOOK FOR PENITENTIARY PLACEMENT; THE OBSTACLE IS THE COSTS OF RENTING BIPAP AND OTHER BERIATRIC EQUIPMENT. CM SPOKE TO RUT OF [facility] IN[facility]IENT RE[facility], THEY WILL NOT CONSIDER PATIENT FOR REHAB ON PRIVATE PAY BASIS AND WOULD DENY PATIENT REGARDLESS DUE TO HER "ENTIRE SITUATION". CM NOTIFIED PT AND DAUGHTER IN ROOM OF PROGRESS AND LACK THEREOF. CM ASKED TO SEND REFERRALS TO OTHER NURSING FACILITIES, PT REFUSED STATING SHE WANTS TO WAIT FOR DEFINITE ANSWER FROM [facility] FOR TREY REHAB SERVICES. - CM WAITING ADMISSION DETERMINATION FROM [facility] FOR CHEMIST BIOLOGICAL CARE PLACEMENT IN ONE OF HER AFFILIATED [facility] HOMES. - CM WAITING RETURN CALL FROM [facility] IN [place] REGARDING TREY REHAB. - CM WAITING DETERMINATION FROM [facility] FOR LONGTERM CARE PLACEMENT IN ONE OF HER AFFILIATED [facility] HOMES. Sandor Butt, CASE MANAGEMENT DCP- Discharge Planning Updated by [id number]: Sandor Butt on 06/11/19 3:[address] Patient Name: TROY HAYWOOD Encounter No: [id number] : 1955 Primary Insurance: [place] Anticipated DC Date: 06-11-2019 Planned Disposition: Nursing Facility YUN Cert External Planned Provider: : DCP follow-up note: CM RECEIVED MESSAGE FROM TROY OF [facility], THEY WILL NOT ACCEPT PT. CM FAXED REFERRAL UDPATE TO [facility] AT [phone]. CM FAXED UPDATE TO [facility] AT [phone]. CHAR INFORMED CM THAT SHE ANTICIPATES A BERIATRIC PENITENTIARY BED OPENING "SOON". CM NOTIFIED PT AND DAUGHTER OF PROGRESS / LACK THEREOF IN ROOM. - CM WAITING ADMISSION DETERMINATION FROM [facility] FOR CHEMIST BIOLOGICAL CARE PLACEMENT IN ONE OF HER AFFILIATED NURSING HOMES. - CM WAITING RETURN CALL FROM [facility] IN [place] REGARDING TREY REHAB. ROSANNA Montaño MANAGEMENT DCP- Discharge Planning Updated by [id number]: Sandor Butt on 06/10/19 3:[address] Patient Name: TROY HAYWOOD Encounter No: [id number] : 1955 Primary Insurance: [place] Anticipated DC Date: 06-11-2019 Planned Disposition: Nursing Facility YUN Cert External Planned Provider: FIRST ACCEPTING FACILITY DCP follow-up note: - CM RECEIVED CALL FROM [facility], THEY HAVE NOT AVAILABILITY FOR TREY REHAB BED. CM RECEIVED CALL FROM MITCH OF [facility] IN [facility], THEY HAVE NOT RECEIVED TREY APPLICATION AND HAVE NO CURRENT BEDS BUT WOULD CONSIDER PT. CM RETURNED CALL TO MITCH AT [facility], , INFORMED THAT [facility] [place], TELEPHONE CONTACT [phone]. HETAL ASKED FOR REFERRAL TO BE SENT AND HE WILL SCREEN FOR ADMISSION. CM FAXED REFERRAL TO [facility] AT [phone]. CM NOTIFIED PT AND DAUGHTER OF PROGRESS IN ROOM. PT AND DAUGHTER ASKED FOR CM TO SEND REFERRAL TO [facility] IN [place]. CHOICE SIGNED. CM FAXED REFERRAL TO [facility] VIA TROY [facility] AT [phone]. - CM WAITING ADMISSION DETERMINATION FROM [facility] FOR CHEMIST BIOLOGICAL CARE PLACEMENT IN ONE OF HER AFFILIATED NURSING HOMES. - CM WAITING RETURN CALL FROM [facility] IN [place] REGARDING TREY REHAB. - CM WAITING ADMISSION DETERMINATION FROM [facility]AC[facility]. Sandor Butt CASE MANAGEMENT DCP- Discharge Planning Updated by [id number]: Sandor Butt on 06/09/19 3:[address] Patient Name: TROY HAYWOOD Encounter No: [id number] : 1955 Primary Insurance: [place] Anticipated DC Date: 06-10-2019 Planned Disposition: Nursing Facility YUN Cert External Planned Provider: FIRST ACCEPTING FACILITY DCP follow-up note: CM SPOKE TO PT AND DAUGHTER, CHEPE, THEY WILL LET CM SEEK PENITENTIARY PLACEMENT FOR THEM TO CONSIDER BUT STILL DO NOT WANT CHEMIST BIOLOGICAL CARE IF THEY CAN OBTAIN REHAB THROUGH [facility]. DAUGHTER ADVISED SHE HAS CONFIRMED RECEIPT OF THE APPLICATION FAXED TO THE [facility] AND IS IN PROCESS OF REVIEW. DAUGHTER ASKED CM TO CHECK INTO REHAB'S THAT MAY HAVE SISTERBARRY AFFILIATION. CM CALLED [facility], , REQUESTED ASSISTANCE IN LONGTERM CARE PLACEMENT WITH INTENT TO RETURN HOME. CHAR STATES THAT SHE MAY HAVE HOME'S WILL ACCEPT BARIATRIC PATIENT AND WILL ATTEMPT PLACEMENT. CHAR WILL MEET WITH PT LATER TODAY. CM FAXED REFERRAL TO [facility] AT [phone]. CM SPOKE TO TROY MIMS OF [facility], TROY INFORMED CM THAT SHE HAS NO HOMES IN HER GROUP THAT MAY ASSIST WITH PLACEMENT. CM CALLED [facility], WAS ADVISED BY RUT THAT THEY WILL NOT CONSIDER FOR TREY CARE, THEY ARE NOT AFFILIATED WITH [facility]. CM CALLED [facility], , SPOKE TO CHELO WHO INFORMED CM THAT THEY ARE NOT AFFILIATED WITH [facility] BUT WILL CONSIDER PT FOR TREY REHAB. CM FAXED REFERRAL TO [facility] AT [phone]. CM CALLED [facility] IN [place], , SPOKE TO DHEERAJ WHO REPORTS THEY HAVE NO OPEN REHAB BEDS AND HAVE NO PROJECTED DISCHARGES SOON. THEY DO NOT HAVE WEIGHT LIMITS. DHEERAJ DID NOT WANT REFERRAL FAXED, SHE WILL REPORT TO BREN WHO WILL CHECK [facility] REGARDING APPLICATION STATUS AND CALL CM TOMORROW, 06-10-19. CM NOTIFIED PT IN ROOM OF PROGRESS. PT STATES SHE MAY BE ABLE TO TRANSFER SELF AND GO HOME BEFORE CM FINDS REHAB FOR HER. - CM WAITING ADMISSION DETERMINATION FROM [facility] FOR CHEMIST BIOLOGICAL CARE PLACEMENT IN ONE OF HER AFFILIATED NURSING HOMES. - CM WAITING ADMISSION DETERMINATION FROM [facility] FOR TREY REHAB BED. - CM WAITING RETURN CALL FROM [facility] IN [place] REGARDING TREY REHAB. Sandor Butt, CASE MANAGEMENT DCP- Discharge Planning Updated by [id number]: Sandor Butt on 06/04/19 4:[address] Patient Name: TROY HAYWOOD Encounter No: [id number] : 1955 Primary Insurance: [place] Anticipated DC Date: 06-02-2019 Planned Disposition: Nursing Facility YUN Cert External Planned Provider: TO BE DETERMINED DCP follow-up note: CM SPOKE TO PT AND DAUGHTER CHEPE, IN ROOM. PT IS AND FOR PAST 10 YEARS, BUT NOT LEGALLY. THEY CANNOT QUALIFY FOR MEDICAID FOR CHEMIST BIOLOGICAL CARE DUE TO NOT HAVING SPOUSE FINANICAL INFORMATION. PT AND DAUGHTER BOTH STATE THAT THEY DO NOT WANT TO PUT PT INTO LONGTERM PENITENTIARY CARE WHERE SHE WILL JUST LAY IN THE BED. THEY DO NOT WANT FURTHER PENITENTIARY REFERRALS FAXED OUT. CM DISCUSSED THAT PT IS STABLE FOR DISCHARGE MEDICALLY. PT'S DAUGHTER REPORTS PT IS NOT HAVING BOWEL MOVEMENTS AND THAT THE FECES COMING OUT IS COMING AROUND AN IMPACTION AND NO ONE IS ADDRESSING THIS. CM NOTIFIED TOBY THOMAS WHO PROVIDED ORDERS FOR MEDICATION TO TREAT CONDITION. BEDSIDE NURSE NOTIFIED. PT'S DAUGHTER PROVIDED CM WITH 77 PAGES AND ASKED CM TO FAX TO [facility] FOR FINANCIAL ASSISTANCE REGARDING REHAB SERVICES FOR PT. CM FAXED TO [facility] FIN[facility]CIAL [facility]IST[facility] PRO[facility] AT [phone]. PT'S DAUGHTER ADVISED THAT IF APPROVED, PT WILL HAVE TO GO TO A [facility] FOR REHAB. PT WAS DECLINED LONGTERM CARE PLACEMENT AT [place]; PT AND FAMILY DECLINE TO HAVE FURTHER REFERRALS SENT OUT. FAMILY IS TRYING TO SECURE FINANCIAL ASSISTANCE FOR REHAB SERVICES THROUGH [facility]. CM TO CONTINUE TO FOLLOW AND ASSIST. Sandor Butt, CASE MANAGEMENT DCP- Discharge Planning Updated by [id number]: Sandor Butt on 06/04/19 11:[address] Patient Name: TROY HAYWOOD Encounter No: [id number] : 1955 Primary Insurance: [place] Anticipated DC Date: 06-02-2019 Planned Disposition: Nursing Facility YUN Cert External Planned Provider: WAITING FAMILY DECISION DCP follow-up note: CM RECEIVED CALL FROM [facility] WHO ADVISED CM THAT PT HAS BEEN FIANCIALLY DENIED FOR PLACEMENT. CM SPOKE TO PT IN ROOM WHO ADVISED THAT SHE UNDERSTOOD THEY WERE JUST GOING TO LEAVE HER LAYING IN BED FOR A MONTH AND NOT GIVE HER ANY REHAB SERVICES. CM EXPLAINED THAT MEDICAID DOES NOT PAY FOR REHAB SERVICES, ONLY CHEMIST BIOLOGICAL CARE AND PT WOULD RECEIVE WHAT THEY CALL "RESTORATIVE CARE" FROM STAFF AT ANY PENITENTIARY, NOT THERAPY SERVICES. PT STATES SHE IS NOW ABLE TO STAND UP WITH THERAPY HERE. CM EXPLAINED THAT PT IS GETTING 8 TO 16 MINUTES OF THERAPY PER DAY AND THAT ALTHOUGH CM WAS HAPPY WITH PROGRESSION, PT IS MEDICALLY STABLE TO LEAVE THE HOSPITAL AND THAT SHE WOULD RECEIVE MORE THERAPY AT HOME WITH HOME HEALTH THAN IN THIS ACUTE HOSPITAL SETTING. PT STATES SHE IS NOT SURE WHAT HAPPENED, THAT CHEPE IS TAKING CARE OF THIS FOR HER AND THAT CHEPE WILL BE TO THE HOSPITAL IN A LITTLE WHILE TO SPEAK TO CM; PT BELIVES THAT CHEPE IS AGAIN WORKING ON TRYING TO GET TREY REHAB CARE THROUGH THE [facility]. PT HAS BEEN FINANCIALLY DECLINED FOR [facility]MIST BIOLOGICAL CARE [facility]AC[facility]. PT DEFERRING PLANNING TO HER DAUGHTER, CHEPE. CM WAITING FAMILY TO ARRIVE TO DISCUSS FURTHER DISCHARGE PLANNING. Sandor Butt CASE MANAGEMENT DCP- Discharge Planning Updated by [id number]: Sandor Butt on 06/03/19 7:[address] Patient Name: TROY HAYWOOD Encounter No: [id number] : 1955 Primary Insurance: [place] Anticipated DC Date: 06-02-2019 Planned Disposition: Nursing Facility YUN Cert External Planned Provider: [facility] LONGTERM CARE MEDICAID BED DISCHARGE PLANNING NOTE: CM FAXED REFERRAL UPDATE TO [facility] AT [phone]. CM WAITING ADMISSION DETERMINATION FROM [facility] FOR CHEMIST BIOLOGICAL CARE. WAITING FAMILY TO PROVIDE FINANCIAL INFORMATION FOR CHEMIST BIOLOGICAL CARE MEDICAID APPLICATION TO FACILITY. Sandor Butt CASE MANAGEMENT DCP- Discharge Planning Updated by [id number]: Sandor Btut on 06/02/19 3:[address] Patient Name: TROY HAYWOOD Encounter No: [id number] : 1955 Primary Insurance: [place] Anticipated DC Date: 06-02-2019 Planned Disposition: Nursing Facility YUN Cert External Planned Provider[facility]ICAID BED DCP follow-up note: CM FAXED REFERRAL UPDATE TO [facility] AT [phone]. CM WAITING ADMISSION DETERMINATION FROM [facility] FOR LONGTERM CARE. Sandor Butt, CASE MANAGEMENT Appended by Sandor Butt on 06/02/2019 16:50 BEAMING MACHINE OPERATOR: CM RECEIVED CALL FROM LUIS OF [facility], , THEY RECEIVED THE UPDATE BY FAX AND WILL CONTACT FAMILY REGARDING FINANCIALS. LUIS REPORTS THEY ARE STILL WAITING ON NURSING TO ACCEPT FOR CHEMIST BIOLOGICAL CARE AND WILL ALSO NEED FINANCIAL CLEARANCE TO ENTER THE FACILITY. CM WAITING ADMISSION DETERMINATION FROM [facility] FOR CHEMIST BIOLOGICAL CARE. [place] CONTACTING FAMILY TO ASSIST WITH FINANCIAL INFORMATION FOR LONGTERM CARE MEDICAID APPLICATION. Sandor Butt CASE MANAGEMENT DCP- Discharge Planning Updated by [id number]: Sandor Butt on 06/01/19 4:[address] Patient Name: TROY HAYWOOD Encounter No: [id number] : 1955 Primary Insurance: [place] Anticipated DC Date: 06-02-2019 Planned Disposition: Nursing Facility YUN Cert External Planned Provider: [facility] MEDICAID BED DCP follow-up note: CM MET WITH PT AND DAUGHTER HOUSTON, WHO HAS MADE IT FROM [place]. UPDATE PROVIDED. CM CALLED [facility], [place] INFORMED CM THAT REFERRAL FROM AND [facility] WAS RECEIVED, STAFF IN MEETING TODAY AND THEY WILL FINISH ADMISSION REVIEW TOMORROW, 06-02-19. CM NOTIFIED PT AND DAUGHTER IN ROOM. CM WAITING ADMISSION DETERMINATION FROM [facility] FOR CHEMIST BIOLOGICAL CARE. Sandor Butt CASE MANAGEMENT DCP- Discharge Planning Updated by [id number]: Sandor Butt on 05/31/19 3:[address] Patient Name: TROY HAYWOOD Encounter No: [id number] : 1955 Primary Insurance: [place] Anticipated DC Date: 06-01-2019 Planned Disposition: Nursing Facility YUN Cert External Planned Provider: [facility] LONGTERM [facility] MEDICAID BED DCP follow-up note: AFTER SEVERAL VISITS WITH PT IN ROOM, PHONE CALLS WITH DAUGHTERS, [facility] AND [facility], PT DECIDED TO CONSENT TO 30 DAYS OF CHEMIST BIOLOGICAL CARE AT [facility] AFTER PT'S DAUGTHERS, WITH AIDE OF [facility], LOCATED [place] WHO WILL CONSIDER PT FOR CARE. PT SIGNED CHOICE. CM FAXED REFERRAL INFORMATION TO [facility] AT [phone]. CM WAITING ADMISSION DETERMINATION FROM [facility] FOR CHEMIST BIOLOGICAL CARE. ROSANNA Montaño DCP- Discharge Planning Updated by [id number]: Sandor Butt on 05/28/19 3:[address] Patient Name: TROY HAYWOOD Encounter No: [id number] : 1955 Primary Insurance: [place] Anticipated DC Date: 06-02-2019 Planned Disposition: Home with Home Health External Planned Provider: [facility] DCP follow-up note: CM RECEIVED CALL FROM PT'S DAUGHTER, CHEPE, WHO VERIFIED THAT SHE WILL COME NEXT WEEK TO STAY WITH PT FOR TWO OR THREE WEEKS TO CARE FOR PT AT HOME. CHEPE WILL DISCUSS WITH HER MOTHER THAT SHE WILL HAVE TO BE ABLE TO STAND AND TRANSFER FOR CHEPE TO CARE FOR HER. CM REVIEWED THERAPY NOTES TO PRESENT. 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 PT HAS BEDSIDE COMMODE AND WHEELCHAIR AT HOME. CHEPE REPORTS NEED OF [facility] RESUMPTION. CHEPE WILL DISCUSS WITH PT AND TRY TO MOTIVATE HER TO MEET THERAPY GOALS PRIOR TO ARRIVAL ON NEXT FRIDAY OR FRIDAY. PT'S DAUGHTER PLANS TO TAKE PT HOME NEXT FRIDAY OR FRIDAY, THEY WILL NEED [facility], DENIES FURTHER NEEDS. CM TO FOLLOW AND ASSIST NEEDED. ROSANNA Montaño DCP- Discharge Planning Updated by [id number]: Sandor Butt on 05/28/19 2:[address] Patient Name: TROY HAYWOOD Encounter No: [id number] : 1955 Primary Insurance: [place]ID [place] Anticipated DC Date: Planned Disposition: Nursing Facility [facility] External Planned Provider: TO BE DETERMINED DCP follow-up note: CM SPOKE TO [facility], SHE INFORMED CM THAT UPDATES HAVE BEEN RECEIVED, PT IS NOT MAKING ENOUGH PROGRESS WITH THERAPY THAT THEY DO NOT BELIEVE THAT PT WILL BE ABLE TO ACHIEVE THERAPY GOALS IN THE REMAINING 10 DAYS OF ACUTE DAYS THAT PT HAS REMAINING. CM NOTIFIED PT AND PROVIDED PT WITH NURSING FACILITY LISTING OF ALL AVAILABLE FACILITIES WITHIN [address] [place]. PT WILL SPEAK TO HER DAUGHTER AND NOTIFY CM OF HER CHOICES. CM CALLED [facility], , TWICE; AUTOMATED MESSAGE INFORMED CM THAT THE NUMBER WAS RESTRICTED OR CURRENTLY UNAVAILABLE. CM WAITING PT AND FAMILY TO PROVIDE NURSING FACILITY CHOICES FOR CHEMIST BIOLOGICAL CARE. Sandor Butt, CASE MANAGEMENT Appended by Sandor Butt on 05/28/2019 12:07 CDT: CM SPOKE TO PT IN ROOM, NOTIFIED PT THAT CM TRIED AND COULD NOT REACH DAUGHTER HOUSTON VIA PHONE. PT REPORTS SHE SPOKE TO [facility] WHO TOLD HER THAT [facility] WILL NOT TAKE HER DUE TO WEIGHT; PT'S DAUGHTER TOLD PT THAT [facility] PROBABLY WILL NOT TAKE HER. PT REPORTS THERE IS ONE IN [place] THAT MIGHT CONSIDER HER. CM OFFERED CHOICE FORM FOR SIGNATURE SO THAT CM COULD SEND REFERRALS AND BEGIN CALLING TO FIND PLACEMENT. PT REFUSED AND STATES SHE HAS A DAUGHTER, CHEPE, WHO IS A REGISTERED NURSE, THAT MAY BE COMING TO TAKE CARE OF PT AT HOME. PT'S DAUGHTER HOUSTON IS CALLING DAUGHTER CHEPE TO DISCUSS THE OPTION. PT STATES SHE WILL LET CM KNOW THE OUTCOME AND IF SHE WANTS CM TO EXPLORE PENITENTIARY CARE FOR HER. CM WAITING PT AND FAMILY TO PROVIDE NURSING FACILITY CHOICES AND FOR PT TO SIGN CONSENT FOR PENITENTIARY PLACEMENT. PT IS NOW HOPEFUL THAT HER DAUGHTER WHO IS A REGISTERED NURSE WILL COME AND STAY WITH PT AND TAKE CARE OF HER AT HOME. SANDOR BUTT, CASE MANAGEMENT Appended by Sandor Butt on 05/28/2019 14:27 CDT: CM RECEIVED MESSAGE THAT PT WANTS TO SEE CM. CM MET WITH PT IN ROOM WHO INFORMED CM THAT SHE HIS NOT GOING TO A PENITENTIARY, THAT HER DAUGHTER, CHEPE, WHO IS A NURSE, WILL BE HERE NEXT FRIDAY TO TAKE HER HOME AND WILL TAKE CARE OF PT AT HOME. PT ASKED FOR [facility] RESUMPTION. CM DISCUSSED POSSIBLE NEED OF [facility] AND ASKED ABOUT ADDITIONAL EQUIPMENT. PT THINKS BY NEXT WEEK, SHE WILL BE ABLE TO TRANSFER WITHOUT AIDE OF LIFT DEVICE. CM NOTIFIED DR. FREEDMAN WHO INFORMED CM THAT HE WILL ORDER BLOOD GAS ON FRIDAY TO DETERMINE RESPIRATORY DISCHARGE NEEDS AT THAT TIME. PT HAS SIGNED RIGHT OF CHOICE FOR [facility] ALREADY. PT REPORTS HER DAUGHTER, WHO IS A REGISTERED NURSE, WILL BE HERE FRIDAY OF NEXT WEEK TO TAKE CARE OF PT AT HOME. PT PLANS TO DISCHARGE HOME WITH FAMILY AND [facility]. CM TO FOLLOW AND ASSIST NEEDED. ROSANNA MONTAÑO DCP- Discharge Planning Updated by [id number]: Sandor Butt on 05/28/19 7:[address] Patient Name: TROY HAYWOOD Encounter No: [id number] : 1955 Primary Insurance: MEDICAID [place] Anticipated DC Date: Planned Disposition: Inpatient Rehab External Planned Provider: [facility] DCP follow-up note: CM FAXED REFERRAL UPDATE TO [facility] AT [phone]. CM WAITING ADMISSION DETERMINATION FROM [facility] IN [place]. ROSANNA Montaño DCP- Discharge Planning Updated by [id number]: Sandor Butt on 05/27/19 2:[address] Patient Name: TROY HAYWOOD Encounter No: [id number] : 1955 Primary Insurance: MEDICAID [place] Anticipated DC Date: Planned Disposition: Inpatient Rehab External Planned Provider: [facility] DCP follow-up note: CM FAXED REFERRAL UPDATE TO [facility] AT [phone]. CM WAITING ADMISSION DETERMINATION FROM [facility]PAT[facility] IN [place]. Sandor Butt CASE MANAGEMENT Appended by Sandor Butt on 05/27/2019 14:41 CDT: CM CALLED [facility] OF [facility], , LEFT MESSAGE ASKING FOR UPDATE ON REFERRAL AND TO KNOW IF THEY ARE STILL CONSIDERING PT FOR REHAB. CM WAITING ADMISSION DETERMINATION FROM [facility] INPATIENT [facility] IN [place]. Sandor Butt CASE MANAGEMENT DCP- Discharge Planning Updated by [id number]: Jesica Cartagena on 05/26/19 4:[address] Patient requested Trapeze bar to allow her to sit up in hospital bed. CM spoke Dr. Lawson and obtained approval for Trapeze bar. CM notified Radha in materials management of request for Trapeze bar. CM completed and gave Radha the order form for the Trapeze bar. Trapeze bar will be delivered. CM notified patient's CM, Christiano Butt, on status of Trapeze bar. DCP- Discharge Planning Updated by [id number]: Sandor Butt on 05/26/19 3:[address] Patient Name: TROY HAYWOOD Encounter No: [id number] : 1955 Primary Insurance: MEDICAID [facility] Date: Planned Disposition: Inpatient Rehab External Planned Provider: [facility] DCP follow-up note: CM SPOKE TO PT'S DAUGHTER VIA PHONE, HOUSTON SALGADO, . CM OBTAINED PERMISSION FROM PT TO DISCUSS CARE, TREATMENT AND DISCHARGE PLANNING WITH HOUSTON. HOUSTON INFORMED CM THAT PT WAS IN REHAB AT [facility] LAST YEAR AND THEY WANT REFERRED TO [facility] AGAIN. CM DISCUSSED PT'S VERY LOW LEVEL OF PHYSICAL CONDITIONING. PT'S DAUGHTER FEELS THAT PT CAN PARTICIPATE WITH THERAPY WITH GOAL TO RETURN HOME PREVIOUS WITH ABILITY TO TRANSFER TO ELECTRIC SCOOTER AND HOME HEALTH FOR CONTINUED HOME SERVICES. HOUSTON VERIFIED THAT PT HAS NO ADULTS ABLE TO LIVE WITH AND ASSIST PT AT HOME AT THIS TIME. HOUSTON ASKED ABOUT [facility] THAT MAY TAKE PT AT NO COSTS DUE TO INCOME. CM INFORMED HOUSTON THAT CM WAS NOT FAMILIAR WITH ANY OF THESE PROGRAMS. HOUSTON WOULD LIKE TO HAVE PT EVALUATED FOR REHAB AT [facility] PRIOR TO ANY CONSIDERATION OF PENITENTIARY PLACEMENT PT WILL NOT GET THERAPY THERE. CM SPOKE TO PT WHO IS IN AGREEMENT WITH PLAN. CM CALLED [facility] OF [facility]PATIENT RE[facility], , NOTIFIED OF REHAB REQUEST; PT HAS ONLY 24 ACUTE DAYS THAT STARTED IN JANUARY, IT DEPENDS ON HOW MANY HAVE BEEN ALREADY USED, PT'S CONDITION AND NEEDS THAT WOULD HAVE TO BE MET IN THE REMAINING DAYS THAT PT HAS TO USE FOR REHAB . CM FAXED REFERRALINFORMATION TO [facility] WITH CURRENT MAR AT [phone]. CM WAITING ADMISSION DETERMINATION FROM [facility] INPATIENT REH[facility] IN [place]. Sandor Butt, CASE MANAGEMENT Appended by Sandor Butt on 05/26/2019 15:24 CDT: CM MET WITH PT, GRANDDAUGHTER, DAUGHTER HOUSTON VIA PHONE WITH CM RAILROAD WATCHMAN, UNIT NURSE CORRECTION OFFICER HEAD, REPIRATORY THERAPIST AND RAILROAD WATCHMAN OF THERAPY SERVICES REGARDING DISCHARGE PLANNING. CONCERNS OF PT'S PLAN TO GO HOME IN CURRENT CONDITION DISCUSSED. PT AND DAUGHTER HAVE ALREADY ASKED FOR [facility]FERRAL TO [facility], CM HAS SENT IT AND WAITING DETERMINATION. PLAN "B" WAS AGREED TO BE NURSING FACILITY IF NOT ACCEPTED TO [facility] AND THAT CM WOULD ATTEMPT TO FIND ONE THAT MAY DONATE REHAB SERVICES. PT'S DAUGHTER IS RESEARCHING [employer] FUNDING FROM [employer] FOR REHAB SERVICES. CM WAITING ADMISSION DETERMINATION FROM [facility] IN [place]. Sandor Butt CASE MANAGEMENT DCP- Discharge Planning Updated by [id number]: Sandor Butt on 05/25/19 2:[address] Patient Name: TROY HAYWOOD Encounter No: [id number] : 1955 Primary Insurance: MEDICAID [facility] Date: Planned Disposition: Home HEALTH External Planned Provider: [facility], VISITING NURSES [facility] DCP follow-up note: CM MET WITH PT IN ROOM TO DISCUSS DISCHARGE NEEDS AND PLANNING. CM DISCUSSED AVAILABILITY OF HOME HEALTH, REHAB SERVICES AND MEDICAL EQUIPMENT. PT REFUSES [facility] FACILITY PLACEMENT. PT STATES PLAN TO RETURN HOME. 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 PT WAS ABLE TO AMBULATE SMALL DISTANCES AND TRANSFER SELF FROM BED TO ELECTRIC WHEELCHAIR AT HOME. PT THINKS SHE IS GOING TO BE ABLE TO TRANSFER SELF TO GO BACK HOME. PT WANTS HOME HEALTH RESUMED TO GO HOME. CM EXPRESSED CONCERN OF PT'S CURRENT LEVEL OF FUNCTIONING AND RETURNING HOME. PT DENIES HAVING FRIENDS OR FAMILY TO ASSIST WITH HER CARE AT HOME BUT IS NOT GOING TO A PENITENTIARY. PT THINKS SHE WILL NEED AN AMBULANCE FOR TRANSPORT HOME HER ELECTRIC WHEELCHAIR IS THERE. CM EXPLAINED TO PT THAT SHE WILL NEED TO DEMONSTRATE WITH THERAPY THE ABILITY TO TRANSFER AND SIT IN CHAIR FOR DISCHARGE. PT STATED UNDRESTANDING. CHOICE FOR [facility] VISITING NURSES HOME HEALTH SIGNED. 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 PT REFUSED NURSING FACILITY PLACEMENT. PT WILL NEED TO DEMONSTRATE ABILITY TO TRANSFER AND SIT IN CHAIR FOR DISCHARGE SHE HAS ELECTRIC WHEELCHAIR AT HOME. CM TO ARRANGE HOME HEALTH RESUMPTION WITH [facility] VISITING N[facility]ES [facility] FOR DISCHARGE HOME. CM TO CONTINUE TO FOLLOW AND ASSIST NEEDED. Sandor Butt CASE MANAGEMENT DCP- Discharge Planning Updated by [id number]: Aleisha Monroe on 05/19/19 7:[address] Patient Name: TROY HAYWOOD Admission Status: ER Accout number: [id number] Admission Date: 05-14-2019 : 1955 Admission Diagnosis: Attending: FABIO PINEDA Current LOS: 5 Anticipated DC Date: Planned Disposition: Home or Self Care Primary Insurance: MEDICAID [place] Discharge Planning Comments: CM met with patient and daughter to complete initial dc planning assessment. Patient recently extubated earlier today. CM educated patient on the CM role and verbal consent given by patient to complete assessment. Patient lives at home with her two young grand-daughters where she is independent with her care. At discharge patient plans to return home and feels this is a safe discharge. CM discussed availability of home health, rehab services, and medical equipment. Patient has Home 02 and HH with unknown providers. CM will f/u with patient @ later date to see if she is able to give providers. Patient denied known discharge needs at this time. CM will continue to follow and will assist as needed with dc plans/needs. Tipple Repairer: Aleisha Monroe DCPIA - Discharge Planning Initial Assessment Updated by [id number]: Sandor Butt on 05/28/19 9:36 am * How many steps to enter\\exit or inside your home? * PCP uncertain ? * Pharmacy [place] * Preadmission Environment Home with Family * ADLs Independent * Other Equipment HOME 02, WALKER, SCOOTER, BSC, SC * List name and contact numbers for known caregivers / representatives who currently or will assist patient after discharge: CHEPE SUN - DAUGHTER- [phone] HOUSTON SALGADO, DTR - [phone] * Verbal permission to speak to the caregivers and representatives has been obtained from the patient. Yes * Community resources currently utilized Home Health * Please name any agencies selected above. [facility] * Additional services required to return to the preadmission environment? No * Can the patient safely return to the preadmission environment? Yes * Has this patient been hospitalized within the prior 30 days at any hospital? No External Providers External Provider: [facility] and [facility] Next Contact Date: 06/18/2019 Service Request Date: Service Type: Resolution: Reviewer: Comments: Coverage Notice Reviewer: [id number] Josef Butt Notice Issued Date-Time: 05/25/2019 14:05 Notice Type: Patient Choice Letter Notice Delivered To: Patient Relationship to Patient: Process Engineering Intern Name: Delivery Method: HAND - Hand Delivered Marry Days: Prior Verbal Notification: Recipient Understood Notice: Yes Recipient Signature: Yes Med Rec Note Co-signed by Attending: Coverage Notice Comment: [facility]- VISIT[facility] NURSES [facility] ([facility]) Reviewer: NAYLA Butt Notice Issued Date-Time: 05/31/2019 14:50 Notice Type: Patient Choice Letter Notice Delivered To: Patient Relationship to Patient: Process Engineering Intern Name: Delivery Method: HAND - Hand Delivered Marry Days: Prior Verbal Notification: Recipient Understood Notice: Yes Recipient Signature: Yes Med Rec Note Co-signed by Attending: Coverage Notice Comment: [facility] Reviewer: NAYLA Butt Notice Issued Date-Time: 06/09/2019 9:55 Notice Type: Patient Choice Letter Notice Delivered To: Patient Relationship to Patient: Process Engineering Intern Name: Delivery Method: HAND - Hand Delivered Marry Days: Prior Verbal Notification: Recipient Understood Notice: Yes Recipient Signature: Yes Med Rec Note Co-signed by Attending: Coverage Notice Comment: [facility] OR ANY ACCEPTING [facility] FACLITY Reviewer: NAYLA Butt Notice Issued Date-Time: 06/10/2019 16:25 Notice Type: Patient Choice Letter Notice Delivered To: Patient Relationship to Patient: Process Engineering Intern Name: Delivery Method: HAND - Hand Delivered Marry Days: Prior Verbal Notification: Recipient Understood Notice: Yes Recipient Signature: Yes Med Rec Note Co-signed by Attending: Coverage Notice Comment: MASTER SANTIZO export: 06/17/19 8:43 Patient Name: TROY HAYWOOD Page [id number] at 1507 All edits/amendments must be made on the electronic document DICTATION DATE: 06/17/19 1507 ENVIRONMENTAL HEALTH SPECIALIST: MISHEL 06/17/19 1507 RPT#: [id number] DC DATE: STATUS: ADM IN [facility] [address] [place] [address] END OF REPORT
--- NOTE | 2019-06-17 15:35 | MORECARE ---
CASE MANAGEMENT DISCHARGE SUMMARY PATIENT: TROY HAYWOOD UNIT: [id number] ADM DATE: 05/14/19 AGE: 64 : 57 SEX: F ROOM/BED: D.2140 AUTHOR: DAYDAY,DOC PHYSICIAN: REFERRING PHYSICIAN: FABIO PINEDA MD DATE OF SERVICE: 06/17/19 Discharge Plan Patient Name: TROY HAYWOOD Facility: [facility]:[place] : 1955 Planned Disposition: Nursing Facility YUN Cert Anticipated Discharge Date: 06/11/19 Discharge Date: Expected LOS: 28 Initial Reviewer: [id number] Initial Review Date: 05/19/2019 Generated: 06/17/19 4:35 pm Comments DCP- Discharge Planning Updated by [id number]: Sandor Butt on 06/17/19 2:[address] Patient Name: TROY HAYWOOD Encounter No: [id number] : 1955 Primary Insurance: [place]ID [place] Anticipated DC Date: 06-11-2019 Planned Disposition: Nursing Facility YUN Cert External Planned Provider: FIRST ACCEPTING FACILITY, CUTCH CLEANER CARE MEDICAID BED DCP follow-up note: CM RECEIVED PHONE MESSAGE FROM MITCH OF [facility], HE AND THE DOCTOR HAVE REVIEWED REFERRAL AND DECLINED PT. THEY DO NOT FEEL PT HAS MADE SIGNIFICANT PROGESS AND HAS NOT DEMONSTRATED ABILITY TO DO THREE HOURS OF PROGRESSIVE THERAPY. CM MET WITH PT IN ROOM, DISCUSSED DENIAL FOR INPATIENT REHAB BY [facility], DISCUSSED LONG-TERM CARE FDC OPTIONS. PT DID SIGN CONSENT FOR ANY LONG TERM FACILITY; PT ASKED CM TO KEEP PT CLOSE TO HOME POSSIBLE. CM EXPLAINED THAT A STATEWIDE SEARCH WILL BE DONE AND THAT ALL EFFORTS WILL BE MADE TO KEEP PT CLOSE TO [place] AND [place] POSSIBLE REQUESTED. CM CALLED PT'S DAUGHTER CHEPE AT PT'S REQUEST, NOTIFIED HER OF ABOVE INFORMATION. CHEPE AGREES THAT PT IS STILL NOT SAFE TO RETURN HOME IN HER CURRENT CONDITION AND AGREES WITH FDC PLACEMENT FOR RESTORATIVE CARE. CM CALLED [facility], , SPOKE TO CORINA WHO INFORMED CM THAT THEY DO BERIATRIC CARE. CM FAXED REFERRAL TO [facility] AT [phone]. CM FAXED REFERRAL UPDATE TO [facility], . CHAR INQUIRED ABOUT WHEN DID PT BEGIN RECEIVING SOCIAL SECURITY DISABILTY, PT STATES 15 YEARS AGO, INFORMATION PROVIDED TO CHAR. CM FAXED REFERRAL UPDATE TO [facility], . PT HAS BEEN DECLINED BY [facility] ([facility] (PRIVATE PAY), [facility]. - CM WAITING ADMISSION DETERMINATION FROM [facility] FOR LONG-TERM CARE PLACEMENT IN ONE OF HER AFFILIATED NURSING HOMES. - CM WAITING ADMISSION DETERMINATION FROM [facility] FOR CUTCH CLEANER CARE. - CM WAITING DETERMINATION FROM [facility] FOR LONG-TERM CARE PLACEMENT IN ONE OF HER AFFILIATED NURSING HOMES. ROSANNA Montaño DCP- Discharge Planning Updated by [id number]: Sandor Butt on 06/17/19 8:[address] Patient Name: RTOY HAYWOOD Encounter No: [id number] : 1955 Primary Insurance: MEDICAID [place] Anticipated DC Date: 06-11-2019 Planned Disposition: Nursing Facility YUN Cert External Planned Provider: FIRST ACCEPTING FACILITY DCP follow-up note: CM ATTEMPTED TO EMAIL [employer] FOR UPDATE ON APPLICATION AT [email or web address]. THE EMAIL FAILED. CM FAXED REQUEST FOR UPDATE TO [employer] AT [phone] AND [phone]. - CM WAITING ADMISSION DETERMINATION FROM [facility] FOR CUTCH CLEANER CARE PLACEMENT IN ONE OF HER AFFILIATED NURSING HOMES. - CM WAITING RETURN CALL FROM [facility] IN [place] REGARDING TREY REHAB. - CM WAITING DETERMINATION FROM [facility] FOR LONG-TERM CARE PLACEMENT IN ONE OF HER AFFILIATED NURSING HOMES. Sandor Butt, CASE MANAGEMENT Sandor Butt DCP- Discharge Planning Updated by [id number]: Sandor Butt on 06/16/19 4:[address] Patient Name: TROY HAYWOOD Encounter No: [id number] : 1955 Primary Insurance: [place]ID [place] Anticipated DC Date: 06-11-2019 Planned Disposition: Nursing Facility YUN Cert External Planned Provider: FIRST ACCEPTING FACILITY DCP follow-up note: CM FAXED REFERRAL UPDATE TO TROY OF [facility] FOR CUTCH CLEANER CARE PLACEMENT AT [phone]. CM FAXED REFERRAL [place] TO [facility] AT [phone]. CM FAXED UPDATE TO [facility] AT [phone] FOR LONG-TERM CARE PLACEMENT. - CM WAITING ADMISSION DETERMINATION FROM [facility] FOR LONG-TERM CARE PLACEMENT IN ONE OF HER AFFILIATED NURSING HOMES. - CM WAITING RETURN CALL FROM [facility] IN [place] REGARDING TREY REHAB. - CM WAITING DETERMINATION FROM [facility] OF [facility] FOR LONG-TERM CARE PLACEMENT IN ONE OF HER AFFILIATED NURSING HOMES. Sandor Butt, CASE MANAGEMENT DCP- Discharge Planning Updated by [id number]: Sandor Butt on 06/15/19 3:[address] Patient Name: TROY HAYWOOD Encounter No: [id number] : 1955 Primary Insurance: MEDICAID [facility] DC Date: 06-11-2019 Planned Disposition: Nursing Facility YUN Cert External Planned Provider: FIRST ACCEPTING DCP follow-up note: CHRISTOPHER SENT MESSAGE TO TROY [facility]S, , OF [facility] ASKING FOR CUTCH CLEANER CARE PLACEMENT ASSISTANCE WITH REHAB IF POSSIBLE. CM FAXED REFERRAL TO TROY AT [phone]. CM CALLED [facility] IN [facility], , HE HAS NOT BEEN ABLE TO GET A DETERMINATION ON TREY AND CANNOT LOCATE THE PERSON IN CORPORATE WHO HAS PT'S TREY APPLICATION. HE WILL CONTINUE TO TRY TO LOCATE WHO IS PROCESSING THE APPLICATION HE HAS NOT SEEN IT OR HEARD ANY DETERMINATION. CHRISTOPHER FAXED REFERRAL UDPATE TO [facility] AT [phone]. M FAXED UPDATE TO [facility] AT [phone]. CHAR INFORMED CM THAT SHE HAS NO BERIATRIC FDC BED YET BUT IS HOPEUL TO HAVE AN OPENING "SOON". ASKED BY PT'S DAUGHTER, CM CALLED AND SPOKE TO RUT, , OF [facility] AND REQUESTED PRIVATE PAY DOWN PAYMENT AND MONTHLY PAYMENT AMOUNTS FOR REHAB AT [facility]. CM FAXED REFERRAL TO [facility] AT [phone]. - CM WAITING ADMISSION DETERMINATION FROM [facility] FOR LONG-TERM CARE PLACEMENT IN ONE OF HER AFFILIATED NURSING HOMES. - CM WAITING RETURN CALL FROM [facility] IN [place] REGARDING TREY REHAB. - CM WAITING DETERMINATION FROM [facility] FOR LONG-TERM CARE PLACEMENT IN ONE OF HER AFFILIATED NURSING HOMES. Sandor Butt, CASE MANAGEMENT Appended by Sandor Butt on 06/15/2019 16:28 GOLD PLATER: CM FAXED [facility] TO [facility]. CM SPOKE TO TROY OF [facility] WHO EXPLAINED SHE IS CONTINUING TO LOOK FOR FDC PLACEMENT; THE OBSTACLE IS THE COSTS OF RENTING BIPAP AND OTHER BERIATRIC EQUIPMENT. CM SPOKE TO RUT OF [facility], THEY WILL NOT CONSIDER PATIENT FOR REHAB ON PRIVATE PAY BASIS AND WOULD DENY PATIENT REGARDLESS DUE TO HER "ENTIRE SITUATION". CM NOTIFIED PT AND DAUGHTER IN ROOM OF PROGRESS AND LACK THEREOF. CM ASKED TO SEND REFERRALS TO OTHER NURSING FACILITIES, PT REFUSED STATING SHE WANTS TO WAIT FOR DEFINITE ANSWER FROM [facility] FOR TREY REHAB SERVICES. - CM WAITING ADMISSION DETERMINATION FROM [facility] FOR LONG-TERM CARE PLACEMENT IN ONE OF HER AFFILIATED NURSING HOMES. - CM WAITING RETURN CALL FROM [facility] IN [place] REGARDING TREY REHAB. - CM WAITING DETERMINATION FROM [facility] FOR CUTCH CLEANER CARE PLACEMENT IN ONE OF HER AFFILIATED NURSING HOMES. Sandor Butt, CASE MANAGEMENT DCP- Discharge Planning Updated by [id number]: Sandor Butt on 06/11/19 3:[address] Patient Name: TROY HAYWOOD Encounter No: [id number] : 1955 Primary Insurance: [place]ID [place] Anticipated DC Date: 06-11-2019 Planned Disposition: Nursing Facility [facility] External Planned Provider: : DCP follow-up note: CM RECEIVED MESSAGE FROM TROY OF [facility], THEY WILL NOT ACCEPT PT. CM FAXED REFERRAL UDPATE TO [facility] AT [phone]. CM FAXED UPDATE TO [facility] AT [phone]. CHAR INFORMED CM THAT SHE ANTICIPATES A BERIATRIC FDC BED OPENING "SOON". CM NOTIFIED PT AND DAUGHTER OF PROGRESS / LACK THEREOF IN ROOM. - CM WAITING ADMISSION DETERMINATION FROM [facility] FOR CUTCH CLEANER CARE PLACEMENT IN ONE OF HER AFFILIATED NURSING HOMES. - CM WAITING RETURN CALL FROM [facility] IN [place] REGARDING TREY REHAB. ROSANNA Montaño DCP- Discharge Planning Updated by [id number]: Sandor Butt on 06/10/19 3:[address] Patient Name: TROY HAYWOOD Encounter No: [id number] : 1955 Primary Insurance: [place] Anticipated DC Date: 06-11-2019 Planned Disposition: Nursing Facility YUN Cert External Planned Provider: FIRST ACCEPTING FACILITY DCP follow-up note: - CM RECEIVED CALL FROM [facility], THEY HAVE NOT AVAILABILITY FOR TREY REHAB BED. CM RECEIVED CALL FROM MITCH OF [facility] IN [facility], THEY HAVE NOT RECEIVED TREY APPLICATION AND HAVE NO CURRENT BEDS BUT WOULD CONSIDER PT. CM RETURNED CALL TO MITCH AT [place], , INFORMED THAT TREY APPLICATION [facility], TELEPHONE CONTACT [phone]. HETAL ASKED FOR REFERRAL TO BE SENT AND HE WILL SCREEN FOR ADMISSION. CM FAXED REFERRAL TO [facility] AT [phone]. CM NOTIFIED PT AND DAUGHTER OF PROGRESS IN ROOM. PT AND DAUGHTER ASKED FOR CM TO SEND REFERRAL TO [facility] IN [place]. CHOICE SIGNED. CM FAXED REFERRAL TO [facility]IA [facility] AT [phone]. - CM WAITING ADMISSION DETERMINATION FROM [facility] FOR CUTCH CLEANER CARE PLACEMENT IN ONE OF HER AFFILIATED NURSING HOMES. - CM WAITING RETURN CALL FROM [facility] IN [place] REGARDING TREY REHAB. - CM WAITING ADMISSION DETERMINATION FROM [facility] LONG TERM FACILITY. ROSANNA Montaño DCP- Discharge Planning Updated by [id number]: Sandor Butt on 06/09/19 3:[address] Patient Name: TROY HAYWOOD Encounter No: [id number] : 1955 Primary Insurance: [place]ID [place] Anticipated DC Date: 06-10-2019 Planned Disposition: Nursing Facility YUN Cert External Planned Provider: FIRST ACCEPTING FACILITY DCP follow-up note: CM SPOKE TO PT AND DAUGHTER, CHEPE, THEY WILL LET CM SEEK FDC PLACEMENT FOR THEM TO CONSIDER BUT STILL DO NOT WANT CUTCH CLEANER CARE IF THEY CAN OBTAIN REHAB THROUGH THE [facility]. DAUGHTER ADVISED SHE HAS CONFIRMED RECEIPT OF THE APPLICATION FAXED TO THE [facility] AND IS IN PROCESS OF REVIEW. DAUGHTER ASKED CM TO CHECK INTO REHAB'S THAT MAY HAVE [facility] AFFILIATION. CM CALLED [facility], , REQUESTED ASSISTANCE IN CUTCH CLEANER CARE PLACEMENT WITH INTENT TO RETURN HOME. CHAR STATES THAT SHE MAY HAVE HOME'S WILL ACCEPT BARIATRIC PATIENT AND WILL ATTEMPT PLACEMENT. CHAR WILL MEET WITH PT LATER TODAY. CM FAXED REFERRAL TO [facility] AT [phone]. CM SPOKE TO [facility]OY [facility] OF [facility], TROY INFORMED CM THAT SHE HAS NO HOMES IN HER GROUP THAT MAY ASSIST WITH PLACEMENT. CM CALLED [facility], WAS ADVISED BY RUT THAT THEY WILL NOT CONSIDER FOR TREY CARE, THEY ARE NOT AFFILIATED WITH [facility]. CM CALLED [facility], , SPOKE TO CHELO WHO INFORMED CM THAT THEY ARE NOT AFFILIATED WITH [place] BUT WILL CONSIDER PT FOR TREY REHAB. CM FAXED REFERRAL TO [facility] AT [phone]. CM CALLED [facility] IN [place], , SPOKE TO DHEERAJ WHO REPORTS THEY HAVE NO OPEN REHAB BEDS AND HAVE NO PROJECTED DISCHARGES SOON. THEY DO NOT HAVE WEIGHT LIMITS. DHEERAJ DID NOT WANT REFERRAL FAXED, SHE WILL REPORT TO BREN WHO WILL [facility] REGARDING APPLICATION STATUS AND CALL CM TOMORROW, 06-10-19. CM NOTIFIED PT IN ROOM OF PROGRESS. PT STATES SHE MAY BE ABLE TO TRANSFER SELF AND GO HOME BEFORE CM FINDS REHAB FOR HER. - CM WAITING ADMISSION DETERMINATION FROM [facility] FOR CUTCH CLEANER CARE PLACEMENT IN ONE OF HER AFFILIATED NURSING HOMES. - CM WAITING ADMISSION DETERMINATION FROM [facility] FOR TREY REHAB BED. - CM WAITING RETURN CALL FROM [facility] IN [place] REGARDING TREY REHAB. Sandor Butt CASE MANAGEMENT DCP- Discharge Planning Updated by [id number]: Sandor Butt on 06/04/19 4:[address] Patient Name: TROY HAYWOOD Encounter No: [id number] : 1955 Primary Insurance: [place]ID [place] Anticipated DC Date: 06-02-2019 Planned Disposition: Nursing Facility YUN Cert External Planned Provider: TO BE DETERMINED DCP follow-up note: CM SPOKE TO PT AND DAUGHTER CHEPE, IN ROOM. PT IS AND FOR PAST 10 YEARS, BUT NOT LEGALLY. THEY CANNOT QUALIFY FOR MEDICAID FOR LONG-TERM CARE DUE TO NOT HAVING SPOUSE FINANICAL INFORMATION. PT AND DAUGHTER BOTH STATE THAT THEY DO NOT WANT TO PUT PT INTO CUTCH CLEANER FDC CARE WHERE SHE WILL JUST LAY IN THE BED. THEY DO NOT WANT FURTHER FDC REFERRALS FAXED OUT. CM DISCUSSED THAT PT IS STABLE FOR DISCHARGE MEDICALLY. PT'S DAUGHTER REPORTS PT IS NOT HAVING BOWEL MOVEMENTS AND THAT THE FECES COMING OUT IS COMING AROUND AN IMPACTION AND NO ONE IS ADDRESSING THIS. CM NOTIFIED TOBY THOMAS WHO PROVIDED ORDERS FOR MEDICATION TO TREAT CONDITION. BEDSIDE NURSE NOTIFIED. PT'S DAUGHTER PROVIDED CM WITH 77 PAGES AND ASKED CM TO FAX TO [facility] FOR FINANCIAL ASSISTANCE REGARDING REHAB SERVICES FOR PT. CM FAXED TO [facility] AT [phone]. PT'S DAUGHTER ADVISED THAT IF APPROVED, PT WILL HAVE TO GO TO A [facility] FOR REHAB. PT WAS DECLINED LONG-TERM CARE PLACEMENT AT [facility]; PT AND FAMILY DECLINE TO HAVE FURTHER REFERRALS SENT OUT. FAMILY IS TRYING TO SECURE FINANCIAL ASSISTANCE FOR REHAB SERVICES THROUGH [facility]. CM TO CONTINUE TO FOLLOW AND ASSIST. Sandor Butt CASE MANAGEMENT DCP- Discharge Planning Updated by [id number]: Sandor Butt on 06/04/19 11:[address] Patient Name: TROY HAYWOOD Encounter No: [id number] : 1955 Primary Insurance: [place]ID [place] Anticipated DC Date: 06-02-2019 Planned Disposition: Nursing Facility Y[facility] Cert External Planned Provider: WAITING FAMILY DECISION DCP follow-up note: CM RECEIVED CALL FROM [facility] WHO ADVISED CM THAT PT HAS BEEN FIANCIALLY DENIED FOR PLACEMENT. CM SPOKE TO PT IN ROOM WHO ADVISED THAT SHE UNDERSTOOD THEY WERE JUST GOING TO LEAVE HER LAYING IN BED FOR A MONTH AND NOT GIVE HER ANY REHAB SERVICES. CM EXPLAINED THAT MEDICAID DOES NOT PAY FOR REHAB SERVICES, ONLY LONG-TERM CARE AND PT WOULD RECEIVE WHAT THEY CALL "RESTORATIVE CARE" FROM STAFF AT ANY FDC, NOT THERAPY SERVICES. PT STATES SHE IS NOW ABLE TO STAND UP WITH THERAPY HERE. CM EXPLAINED THAT PT IS GETTING 8 TO 16 MINUTES OF THERAPY PER DAY AND THAT ALTHOUGH CM WAS HAPPY WITH PROGRESSION, PT IS MEDICALLY STABLE TO LEAVE THE HOSPITAL AND THAT SHE WOULD RECEIVE MORE THERAPY AT HOME WITH HOME HEALTH THAN IN THIS ACUTE HOSPITAL SETTING. PT STATES SHE IS NOT SURE WHAT HAPPENED, THAT CHEPE IS TAKING CARE OF THIS FOR HER AND THAT CHEPE WILL BE TO THE HOSPITAL IN A LITTLE WHILE TO SPEAK TO CM; PT BELIVES THAT CHEPE IS AGAIN WORKING ON TRYING TO GET TREY REHAB CARE THROUGH THE [facility]. PT HAS BEEN FINANCIALLY DECLINED FOR CUTCH CLEANER CARE PLACEMENT BY [facility]. PT DEFERRING PLANNING TO HER DAUGHTER, CHEPE. CM WAITING FAMILY TO ARRIVE TO DISCUSS FURTHER DISCHARGE PLANNING. Sandor Butt CASE MANAGEMENT DCP- Discharge Planning Updated by [id number]: Sandor Butt on 06/03/19 7:[address] Patient Name: TROY HAYWOOD Encounter No: [id number] : 1955 Primary Insurance: [place]ID [place] Anticipated DC Date: 06-02-2019 Planned Disposition: Nursing Facility [facility] Cert External Planned Provider: [facility], CUTCH CLEANER CARE MEDICAID BED DISCHARGE PLANNING NOTE: CM FAXED REFERRAL UPDATE TO [facility] AT [phone]. CM WAITING ADMISSION DETERMINATION FROM [facility] FOR LONG-TERM CARE. WAITING FAMILY TO PROVIDE FINANCIAL INFORMATION FOR LONG-TERM CARE MEDICAID APPLICATION TO FACILITY. ROSANNA Montaño DCP- Discharge Planning Updated by [id number]: Sandor Butt on 06/02/19 3:[address] Patient Name: TROY HAYWOOD Encounter No: [id number] : 1955 Primary Insurance: [place]ID [place] Anticipated DC Date: 06-02-2019 Planned Disposition: Nursing Facility [facility] Cert External [facility] LONG[facility] MEDICAID BED DCP follow-up note: CM FAXED REFERRAL UPDATE TO [facility] AT [phone]. CM WAITING ADMISSION DETERMINATION FROM [facility] FOR CUTCH CLEANER CARE. Sandor Butt, CASE MANAGEMENT Appended by Sandor Butt on 06/02/2019 16:50 GOLD PLATER: CM RECEIVED CALL FROM LUIS OF [facility], , THEY RECEIVED THE UPDATE BY FAX AND WILL CONTACT FAMILY REGARDING FINANCIALS. LUIS REPORTS THEY ARE STILL WAITING ON NURSING TO ACCEPT FOR CUTCH CLEANER CARE AND WILL ALSO NEED FINANCIAL CLEARANCE TO ENTER THE FACILITY. CM WAITING ADMISSION DETERMINATION FROM [facility] FOR LONG[facility]ARE. [facility] CONTACTING FAMILY TO ASSIST WITH FINANCIAL INFORMATION FOR LONG-TERM CARE MEDICAID APPLICATION. Sandor Butt CASE MANAGEMENT DCP- Discharge Planning Updated by [id number]: Sandor Butt on 06/01/19 4:[address] Patient Name: TROY HAYWOOD Encounter No: [id number] : 1955 Primary Insurance: [place] Anticipated DC Date: 06-02-2019 Planned Disposition: Nursing Facility YUN Cert External Planned Provider: [facility], LONG-TERM [facility] MEDICAID BED DCP follow-up note: CM MET WITH PT AND DAUGHTER HOUSTON, WHO HAS MADE IT FROM [facility]. UPDATE PROVIDED. CM CALLED [facility], DALE INFORMED CM THAT REFERRAL FROM AND [facility] WAS RECEIVED, STAFF IN MEETING TODAY AND THEY WILL FINISH ADMISSION REVIEW TOMORROW, 06-02-19. CM NOTIFIED PT AND DAUGHTER IN ROOM. CM WAITING ADMISSION DETERMINATION FROM [facility] FOR LONG-TERM CARE. Sandor Butt CASE MANAGEMENT DCP- Discharge Planning Updated by [id number]: Sandor Butt on 05/31/19 3:[address] Patient Name: TROY HAYWOOD Encounter No: [id number] : 1955 Primary Insurance: [place] Anticipated DC Date: 06-01-2019 Planned Disposition: Nursing Facility [facility] Cert External Planned Provider: [facility], LONG-TERM CARE MEDICAID BED DCP follow-up note: AFTER SEVERAL VISITS WITH PT IN ROOM, PHONE CALLS WITH DAUGHTERS, [facility], PT DECIDED TO CONSENT TO 30 DAYS OF LONG-TERM CARE AT [facility] AFTER PT'S DAUGTHERS, WITH AIDE OF [facility] WHO WILL CONSIDER PT FOR CARE. PT SIGNED CHOICE. CM FAXED REFERRAL INFORMATION TO [facility] AT [phone]. CM WAITING ADMISSION DETERMINATION FROM [facility] AND [facility] FOR LONG-TERM CARE. Sandor Butt CASE MANAGEMENT DCP- Discharge Planning Updated by [id number]: Sandor Butt on 05/28/19 3:[address] Patient Name: TROY HAYWOOD Encounter No: [id number] : 1955 Primary Insurance: [place] Anticipated DC Date: 06-02-2019 Planned Disposition: Home with Home Health External Planned Provider: [facility] DCP follow-up note: CM RECEIVED CALL FROM PT'S DAUGHTER, CHEPE, WHO VERIFIED THAT SHE WILL COME NEXT WEEK TO STAY WITH PT FOR TWO OR THREE WEEKS TO CARE FOR PT AT HOME. CHEPE WILL DISCUSS WITH HER MOTHER THAT SHE WILL HAVE TO BE ABLE TO STAND AND TRANSFER FOR CHEPE TO CARE FOR HER. CM REVIEWED THERAPY NOTES TO PRESENT. 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 PT HAS BEDSIDE COMMODE AND WHEELCHAIR AT HOME. CHEPE REPORTS NEED OF [facility] RESUMPTION. CHEPE WILL DISCUSS WITH PT AND TRY TO MOTIVATE HER TO MEET THERAPY GOALS PRIOR TO ARRIVAL ON NEXT FRIDAY OR FRIDAY. PT'S DAUGHTER PLANS TO TAKE PT HOME NEXT FRIDAY OR FRIDAY, THEY WILL NEED [facility] RESUMPTION, DENIES FURTHER NEEDS. CM TO FOLLOW AND ASSIST NEEDED. Sandor Butt CASE MANAGEMENT DCP- Discharge Planning Updated by [id number]: Sandor Butt on 05/28/19 2:[address] Patient Name: TROY HAYWOOD Encounter No: [id number] : 1955 Primary Insurance: [place]ID [place] Anticipated DC Date: Planned Disposition: Nursing Facility [facility] External Planned Provider: TO BE DETERMINED DCP follow-up note: CM SPOKE TO [facility], SHE INFORMED CM THAT UPDATES HAVE BEEN RECEIVED, PT IS NOT MAKING ENOUGH PROGRESS WITH THERAPY THAT THEY DO NOT BELIEVE THAT PT WILL BE ABLE TO ACHIEVE THERAPY GOALS IN THE REMAINING 10 DAYS OF ACUTE DAYS THAT PT HAS REMAINING. CM NOTIFIED PT AND PROVIDED PT WITH NURSING FACILITY LISTING OF ALL AVAILABLE FACILITIES WITHIN [address] OF [place]. PT WILL SPEAK TO HER DAUGHTER AND NOTIFY CM OF HER CHOICES. CM CALLED [facility], , TWICE; AUTOMATED MESSAGE INFORMED CM THAT THE NUMBER WAS RESTRICTED OR CURRENTLY UNAVAILABLE. CM WAITING PT AND FAMILY TO PROVIDE NURSING FACILITY CHOICES FOR LONG-TERM CARE. Sandor Butt, CASE MANAGEMENT Appended by Sandor Butt on 05/28/2019 12:07 CDT: CM SPOKE TO PT IN ROOM, NOTIFIED PT THAT CM TRIED AND COULD NOT REACH DAUGHTER HOUSTON VIA PHONE. PT REPORTS SHE SPOKE TO [facility] WHO TOLD HER THAT [facility] WILL NOT TAKE HER DUE TO WEIGHT; PT'S DAUGHTER TOLD PT THAT [facility] PROBAB[facility] WILL NOT TAKE HER. PT REPORTS THERE IS ONE IN [place] THAT MIGHT CONSIDER HER. CM OFFERED CHOICE FORM FOR SIGNATURE SO THAT CM COULD SEND REFERRALS AND BEGIN CALLING TO FIND PLACEMENT. PT REFUSED AND STATES SHE HAS A DAUGHTER, CHEPE, WHO IS A REGISTERED NURSE, THAT MAY BE COMING TO TAKE CARE OF PT AT HOME. PT'S DAUGHTER HOUSTON IS CALLING DAUGHTER CHEPE TO DISCUSS THE OPTION. PT STATES SHE WILL LET CM KNOW THE OUTCOME AND IF SHE WANTS CM TO EXPLORE FDC CARE FOR HER. CM WAITING PT AND FAMILY TO PROVIDE NURSING FACILITY CHOICES AND FOR PT TO SIGN CONSENT FOR FDC PLACEMENT. PT IS NOW HOPEFUL THAT HER DAUGHTER WHO IS A REGISTERED NURSE WILL COME AND STAY WITH PT AND TAKE CARE OF HER AT HOME. SANDOR BUTT, CASE MANAGEMENT Appended by Sandor Butt on 05/28/2019 14:27 CDT: CM RECEIVED MESSAGE THAT PT WANTS TO SEE CM. CM MET WITH PT IN ROOM WHO INFORMED CM THAT SHE HIS NOT GOING TO A FDC, THAT HER DAUGHTER, CHEPE, WHO IS A NURSE, WILL BE HERE NEXT FRIDAY TO TAKE HER HOME AND WILL TAKE CARE OF PT AT HOME. PT ASKED FOR [facility]. CM DISCUSSED POSSIBLE NEED OF [facility] LIFT AND ASKED ABOUT ADDITIONAL EQUIPMENT. PT THINKS BY NEXT WEEK, SHE WILL BE ABLE TO TRANSFER WITHOUT AIDE OF LIFT DEVICE. CM NOTIFIED DR. FREEDMAN WHO INFORMED CM THAT HE WILL ORDER BLOOD GAS ON FRIDAY TO DETERMINE RESPIRATORY DISCHARGE NEEDS AT THAT TIME. PT HAS SIGNED RIGHT OF CHOICE FOR [facility]READ[facility]. PT REPORTS HER DAUGHTER, WHO IS A REGISTERED NURSE, WILL BE HERE FRIDAY OF NEXT WEEK TO TAKE CARE OF PT AT HOME. PT PLANS TO DISCHARGE HOME WITH FAMILY AND [facility]. CM TO FOLLOW AND ASSIST NEEDED. ROSANNA MONTAÑO MANAGEMENT DCP- Discharge Planning Updated by [id number]: Sandor Butt on 05/28/19 7:[address] Patient Name: TROY HAYWOOD Encounter No: [id number] : 1955 Primary Insurance: MEDICAID [place] Anticipated DC Date: Planned Disposition: Inpatient Rehab External Planned Provider: [facility] DCP follow-up note: CM FAXED REFERRAL UPDATE TO [facility] AT [phone]. CM WAITING ADMISSION DETERMINATION FROM [facility] IN [place]. Sandor Butt CASE MANAGEMENT DCP- Discharge Planning Updated by [id number]: Sandor Butt on 05/27/19 2:[address] Patient Name: TROY HAYWOOD Encounter No: [id number] : 1955 Primary Insurance: MEDICAID [place] Anticipated DC Date: Planned Disposition: Inpatient Rehab External Planned Provider: [facility] DCP follow-up note: CM FAXED REFERRAL UPDATE TO [facility] AT [phone]. CM WAITING ADMISSION DETERMINATION FROM [facility] IN [place]. Sandor Butt, CASE MANAGEMENT Appended by Sandor Butt on 05/27/2019 14:41 CDT: CM CALLED [facility] OF [facility], , LEFT MESSAGE ASKING FOR UPDATE ON REFERRAL AND TO KNOW IF THEY ARE STILL CONSIDERING PT FOR REHAB. CM WAITING ADMISSION DETERMINATION FROM [facility] IN [place]. Sandor Butt CASE MANAGEMENT DCP- Discharge Planning Updated by [id number]: Jesica Cartagena on 05/26/19 4:[address] Patient requested Trapeze bar to allow her to sit up in hospital bed. CM spoke Dr. Lawson and obtained approval for Trapeze bar. CM notified Radha in materials management of request for Trapeze bar. CM completed and gave Radha the order form for the Trapeze bar. Trapeze bar will be delivered. CM notified patient's CM, Christiano Butt, on status of Trapeze bar. DCP- Discharge Planning Updated by [id number]: Sandor Butt on 05/26/19 3:[address] Patient Name: TROY HAYWOOD Encounter No: [id number] : 1955 Primary Insurance: MEDICAID [facility] DC Date: Planned Disposition: Inpatient Rehab External Planned Provider: [facility] DCP follow-up note: CM SPOKE TO PT'S DAUGHTER VIA PHONE, HOUSTON GERMAINBLOOD, . CM OBTAINED PERMISSION FROM PT TO DISCUSS CARE, TREATMENT AND DISCHARGE PLANNING WITH HOUSTON. HOUSTON INFORMED CM THAT PT WAS IN REHAB AT [facility] LAST YEAR AND THEY WANT REFERRED TO [facility] AGAIN. CM DISCUSSED PT'S VERY LOW LEVEL OF PHYSICAL CONDITIONING. PT'S DAUGHTER FEELS THAT PT CAN PARTICIPATE WITH THERAPY WITH GOAL TO RETURN HOME PREVIOUS WITH ABILITY TO TRANSFER TO ELECTRIC SCOOTER AND HOME HEALTH FOR CONTINUED HOME SERVICES. HOUSTON VERIFIED THAT PT HAS NO ADULTS ABLE TO LIVE WITH AND ASSIST PT AT HOME AT THIS TIME. HOUSTON ASKED ABOUT [facility] THAT MAY TAKE PT AT NO COSTS DUE TO INCOME. CM INFORMED HOUSTON THAT CM WAS NOT FAMILIAR WITH ANY OF THESE PROGRAMS. HOUSTON WOULD LIKE TO HAVE PT EVALUATED FOR REHAB AT [facility] PRIOR TO ANY CONSIDERATION OF FDC PLACEMENT PT WILL NOT GET THERAPY THERE. CM SPOKE TO PT WHO IS IN AGREEMENT WITH PLAN. CM CALLED [facility], , NOTIFIED OF REHAB REQUEST; PT HAS ONLY 24 ACUTE DAYS THAT STARTED IN JANUARY, IT DEPENDS ON HOW MANY HAVE BEEN ALREADY USED, PT'S CONDITION AND NEEDS THAT WOULD HAVE TO BE MET IN THE REMAINING DAYS THAT PT HAS TO USE FOR REHAB . CM FAXED REFERRALINFORMATION TO [facility] WITH CURRENT MAR AT [phone]. CM WAITING ADMISSION DETERMINATION FROM [facility] IN [place]. Sandor Butt, CASE MANAGEMENT Appended by Sandor Butt on 05/26/2019 15:24 CDT: CM MET WITH PT, GRANDDAUGHTER, DAUGHTER HOUSTON VIA PHONE WITH CM DISINTEGRATOR FEEDER, UNIT NURSE WEAVER AXMINSTER, REPIRATORY THERAPIST AND DISINTEGRATOR FEEDER OF THERAPY SERVICES REGARDING DISCHARGE PLANNING. CONCERNS OF PT'S PLAN TO GO HOME IN CURRENT CONDITION DISCUSSED. PT AND DAUGHTER HAVE ALREADY ASKED FOR REFERRAL TO [facility], CM HAS SENT IT AND WAITING DETERMINATION. PLAN "B" WAS AGREED TO BE NURSING FACILITY IF NOT ACCEPTED TO [facility] AND THAT CM WOULD ATTEMPT TO FIND ONE THAT MAY DONATE REHAB SERVICES. PT'S DAUGHTER IS RESEARCHING [employer] [employer] FROM [employer] FOR REHAB SERVICES. CM WAITING ADMISSION DETERMINATION FROM [facility] IN [place]. Sandor Butt, CASE MANAGEMENT DCP- Discharge Planning Updated by [id number]: Sandor Butt on 05/25/19 2:[address] Patient Name: TROY HAYWOOD Encounter No: [id number] : 1955 Primary Insurance: MEDICAID [facility] Date: Planned Disposition: Home HEALTH External [facility] Provider[facility] DC follow-up note: CM MET WITH PT IN ROOM TO DISCUSS DISCHARGE NEEDS AND PLANNING. CM DISCUSSED AVAILABILITY OF HOME HEALTH, REHAB SERVICES AND MEDICAL EQUIPMENT. PT REFUSES LONG TERM FACILITY PLACEMENT. PT STATES PLAN TO RETURN HOME. 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 PT WAS ABLE TO AMBULATE SMALL DISTANCES AND TRANSFER SELF FROM BED TO ELECTRIC WHEELCHAIR AT HOME. PT THINKS SHE IS GOING TO BE ABLE TO TRANSFER SELF TO GO BACK HOME. PT WANTS HOME HEALTH RESUMED TO GO HOME. CM EXPRESSED CONCERN OF PT'S CURRENT LEVEL OF FUNCTIONING AND RETURNING HOME. PT DENIES HAVING FRIENDS OR FAMILY TO ASSIST WITH HER CARE AT HOME BUT IS NOT GOING TO A [facility]. PT THINKS SHE WILL NEED AN AMBULANCE FOR TRANSPORT HOME HER ELECTRIC WHEELCHAIR IS THERE. CM EXPLAINED TO PT THAT SHE WILL NEED TO DEMONSTRATE WITH THERAPY THE ABILITY TO TRANSFER AND SIT IN CHAIR FOR DISCHARGE. PT STATED UNDRESTANDING. CHO[facility] SIGNED. 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 PT REFUSED NURSING FACILITY PLACEMENT. PT WILL NEED TO DEMONSTRATE ABILITY TO TRANSFER AND SIT IN CHAIR FOR DISCHARGE SHE HAS ELECTRIC WHEELCHAIR AT HOME. CM TO ARRANGE HOME HEALTH RESUMPTION WITH [facility] IN [place] FOR DISCHARGE HOME. CM TO CONTINUE TO FOLLOW AND ASSIST NEEDED. Sandor Butt, CASE MANAGEMENT DCP- Discharge Planning Updated by [id number]: Aleisha Monroe on 05/19/19 7:[address] Patient Name: TROY HAYWOOD Admission Status: ER Accout number: [id number] Admission Date: 05-14-2019 : 1955 Admission Diagnosis: Attending: FABIO PINEDA Current LOS: 5 Anticipated DC Date: Planned Disposition: Home or Self Care Primary Insurance: MEDICAID [place] Discharge Planning Comments: CM met with patient and daughter to complete initial dc planning assessment. Patient recently extubated earlier today. CM educated patient on the CM role and verbal consent given by patient to complete assessment. Patient lives at home with her two young grand-daughters where she is independent with her care. At discharge patient plans to return home and feels this is a safe discharge. CM discussed availability of home health, rehab services, and medical equipment. Patient has Home 02 and HH with unknown providers. CM will f/u with patient @ later date to see if she is able to give providers. Patient denied known discharge needs at this time. CM will continue to follow and will assist as needed with dc plans/needs. Senior Digital Designer: Aleisha Monroe DCPIA - Discharge Planning Initial Assessment Updated by [id number]: Sandor Butt on 05/28/19 9:36 am * How many steps to enter\\exit or inside your home? * PCP uncertain ? * [facility] * Preadmission Environment Home with Family * ADLs Independent * Other Equipment HOME 02, WALKER, SCOOTER, BSC, SC * List name and contact numbers for known caregivers / representatives who currently or will assist patient after discharge: CHEPE SUN - DAUGHTER- [phone] HOUSTON SALGADO, DTR - [phone] * Verbal permission to speak to the caregivers and representatives has been obtained from the patient. Yes * Community resources currently utilized Home Health * Please name any agencies selected above. [facility] * Additional services required to return to the preadmission environment? No * Can the patient safely return to the preadmission environment? Yes * Has this patient been hospitalized within the prior 30 days at any hospital? No Coverage Notice Reviewer: [id number] Josef Butt Notice Issued Date-Time: 06/10/2019 16:25 Notice Type: Patient Choice Letter Notice Delivered To: Patient Relationship to Patient: Percussion Instrument Tuner Name: Delivery Method: HAND - Hand Delivered Marry Days: Prior Verbal Notification: Recipient Understood Notice: Yes Recipient Signature: Yes Med Rec Note Co-signed by Attending: Coverage Notice Comment: [facility] Reviewer: [id number] Butt Notice Issued Date-Time: 06/09/2019 9:55 Notice Type: Patient Choice Letter Notice Delivered To: Patient Relationship to Patient: Percussion Instrument Tuner Name: Delivery Method: HAND - Hand Delivered Marry Days: Prior Verbal Notification: Recipient Understood Notice: Yes Recipient Signature: Yes Med Rec Note Co-signed by Attending: Coverage Notice Comment: [facility] OR ANY ACCEPTING LONG TERM FACLITY Reviewer: [id number] Butt Notice Issued Date-Time: 05/31/2019 14:50 Notice Type: Patient Choice Letter Notice Delivered To: Patient Relationship to Patient: Percussion Instrument Tuner Name: Delivery Method: HAND - Hand Delivered Marry Days: Prior Verbal Notification: Recipient Understood Notice: Yes Recipient Signature: Yes Med Rec Note Co-signed by Attending: Coverage Notice Comment: [facility] Reviewer: [id number] Butt Notice Issued Date-Time: 05/25/2019 14:05 Notice Type: Patient Choice Letter Notice Delivered To: Patient Relationship to Patient: Percussion Instrument Tuner Name: Delivery Method: HAND - Hand Delivered Marry Days: Prior Verbal Notification: Recipient Understood Notice: Yes Recipient Signature: Yes Med Rec Note Co-signed by Attending: Coverage Notice Comment: [facility]- VISITING NURSES [facility]) Last DP export: 06/17/19 2:07 Patient Name: TROY HAYWOOD Page [id number] at 1535 All edits/amendments must be made on the electronic document DICTATION DATE: 06/17/19 153 HOUSE DESIGNER: MISHEL 06/17/19 1535 RPT#: [id number] MA DATE: STATUS: ADM IN [facility] [address] [place] [address] END OF REPORT
[2019-06-17 16:34] VITALS: BP 122/50
--- NOTE | 2019-06-17 19:00 | NUR ---
EVENING ROUNDS COMPLETE. PT LAYING IN BED, NO SIGNS OF DISTRESS. AAOX4. NO C/O PAIN OR NEEDS AT THIS TIME. CL IN REACH, BED IN LOWEST POSITION.
[2019-06-17 20:00] VITALS: BP 108/38
[2019-06-18] VITALS (7 sets, daily range): BP systolic 100–123; BP diastolic 33–60
[2019-06-18 07:01] LABS: ANION GAP 7.6 mmol/L (8-16); CALCIUM 8.3 mg/dL (8.5-10.1); CARBON DIOXIDE 34.5 mmol/L (21.0-32.0); CREATININE - SERUM 1.6 mg/dL (0.6-1.3); MAGNESIUM - SERUM 1.8 mg/dL (1.8-2.4); PHOSPHOROUS 4.1 mg/dL (2.5-4.9); POTASSIUM - SERUM 4.1 mmol/L (3.5-5.1)
[2019-06-18 07:13] LABS: HEMATOCRIT 31.3 % (36.0-48.0); HEMOGLOBIN 9.6 g/dL (12-16); LYMPHOCYTES 23.9 % (15-50); MCH 27.9 pg (26.0-34.0); MCHC 30.7 g/dL (31.0-37.0); MEAN PLATELET VOLUME 10.5 fL (7.4-10.4); NEUTROPHILS 53.7 % (40-80); PLATELET COUNT 217 10x3/uL (130-400); RBC 3.44 10x6/uL (4.00-5.40); RDW 17.2 % (11.5-14.5); WBC 4.7 10x3/uL (4.8-10.8)
--- NOTE | 2019-06-18 13:17 | NUR ---
OT NOTE: BED MOB WITH SET UP AND SPV REQUIRING SEVERAL TRIALS TO COME TO UPRIGHT POSITION. PT ABLE TO BATH UPPER PART OF BODY, HOWEVER, DUE TO SIZE, UNABLE TO REACH PERINEAL AND LES. ATTEMPTED TO HAVE PT WIPE SELF WHILE IN STANDING BUT SHE WAS UNABLE TO LET GO OF WALKER IN ABLE TO WIPE SELF. PERFORMED SIT TO STAND X 3 TRIALS; ABLE TO STAND FOR 3 MIN THEN 2 MIN. BACK TO BED WITH MOD ASSIST TO GET LEGS ON BED. UE EXS WITH TRAPEZE..PT NOW ABLE TO PERFORM 3 SETS OF 5 AT A TIME.. PREVIOUSLY PERFORMIN 3 SETS OF 3 AT BEGINNING OF WEAK. PRACTICED ROLLING FROM SIDE TO SIDE AND HAVING PT MOVE LES IN BED. PT IMPROVING IN THIS AREA. SAÚL ESCAMILLA, OTR/L
--- NOTE | 2019-06-18 15:00 | NUR ---
CVL LINE REMOVED BY FLORIDALMA FULLER PT TOLERATED WELL. DRESSING C/D/I.
--- NOTE | 2019-06-18 15:09 | MORECARE ---
CASE MANAGEMENT DISCHARGE SUMMARY PATIENT: TROY HAYWOOD UNIT: [id number] ADM DATE: 05/14/19 AGE: 64 : 57 SEX: F ROOM/BED: D.2140 AUTHOR: DAYDAY,DOC PHYSICIAN: REFERRING PHYSICIAN: FABIO PINEDA MD DATE OF SERVICE: 06/18/19 Discharge Plan Patient Name: TROY HAYWOOD Facility: [facility]:[place] : 1955 Planned Disposition: Nursing Facility [facility] Cert Anticipated Discharge Date: 06/11/19 Discharge Date: Expected LOS: 28 Initial Reviewer: [id number] Initial Review Date: 05/19/2019 Generated: 06/18/19 4:09 pm Comments DCP- Discharge Planning Updated by [id number]: Sandor Carrasquillo on 06/18/19 2:[address] Patient Name: TROY HAYWOOD Encounter No: [id number] : 1955 Primary Insurance: MEDICAID [place] Anticipated DC Date: 06-11-2019 Planned Disposition: Nursing Facility [facility] Cert External Planned Provider: FIRST ACCEPTING FACILITY, MOVIE CRITIC CARE MEDICAID BED DCP follow-up note: CM RECEIVED CALL FROM [facility], , SPOKE TO [place] WHO INFORMED CM THEY ARE CONSIDERING PT FOR TREY THERAPY WITH THE GROUP HOME CARE PLACEMENT, REQUESTED FINANDICAL INFORMATION. CM FAXED FINANCIAL INFORMATION TO [facility] AT [phone]. CHAR [facility], . MET WITH PT AND ASSISTED WITH APPLICATION FOR "[employer]" MEDICARE AND IS STILL WORKING TO GET PT INTO ONE OF HER NURSING HOMES FOR THERAPY SERVICES. CM RECEIVED CALL FROM TROY OF [facility], SHE HAS A FACILITY IN [facility] THAT IS A NON PROFIT AND THEY ARE CONSIDERING PT FOR TREY REHAB SERVICES. PT HAS BEEN DECLINED BY [facility] ([facility]), [facility] ([facility]), [facility]PATIENT [facility] (PRIVATE PAY), [facility] AND [facility]. - CM WAITING ADMISSION DETERMINATION FROM [facility] FOR GROUP HOME CARE PLACEMENT IN ONE OF HER AFFILIATED NURSING HOMES. - CM WAITING ADMISSION DETERMINATION FROM [facility] FOR MOVIE CRITIC CARE. - CM WAITING DETERMINATION FROM TROY MIMS OF [facility] FOR GROUP HOME CARE PLACEMENT IN ONE OF HER AFFILIATED NURSING HOMES. Sandor Carrasquillo, CASE MANAGEMENT DCP- Discharge Planning Updated by [id number]: Sandor Carrasquillo on 06/17/19 2:[address] Patient Name: TROY HAYWOOD Encounter No: [id number] : 1955 Primary Insurance: [place]ID [place] Anticipated DC Date: 06-11-2019 Planned Disposition: Nursing Facility [facility] Cert External Planned Provider: FIRST ACCEPTING FACILITY, MOVIE CRITIC CARE MEDICAID BED DCP follow-up note: CM RECEIVED PHONE MESSAGE FROM MITCH OF [facility], HE AND THE DOCTOR HAVE REVIEWED REFERRAL AND DECLINED PT. THEY DO NOT FEEL PT HAS MADE SIGNIFICANT PROGESS AND HAS NOT DEMONSTRATED ABILITY TO DO THREE HOURS OF PROGRESSIVE THERAPY. CM MET WITH PT IN ROOM, DISCUSSED DENIAL FOR INPATIENT REHAB BY [facility], DISCUSSED MOVIE CRITIC CARE SENIOR LIVING OPTIONS. PT DID SIGN CONSENT FOR ANY GROUP HOME FACILITY; PT ASKED CM TO KEEP PT CLOSE TO HOME POSSIBLE. CM EXPLAINED THAT A STATEWIDE SEARCH WILL BE DONE AND THAT ALL EFFORTS WILL BE MADE TO KEEP PT CLOSE TO [place] POSSIBLE REQUESTED. CM CALLED PT'S DAUGHTER CHEPE AT PT'S REQUEST, NOTIFIED HER OF ABOVE INFORMATION. CHEPE AGREES THAT PT IS STILL NOT SAFE TO RETURN HOME IN HER CURRENT CONDITION AND AGREES WITH SENIOR LIVING PLACEMENT FOR RESTORATIVE CARE. CM CALLED [facility], , SPOKE TO [place] WHO INFORMED CM THAT THEY DO BERIATRIC CARE. CM FAXED REFERRAL TO [facility] AT [phone]. CM FAXED REFERRAL UPDATE TO [facility], . CHAR INQUIRED ABOUT WHEN DID PT BEGIN RECEIVING SOCIAL SECURITY DISABILTY, PT STATES 15 YEARS AGO, INFORMATION PROVIDED TO CHAR. CM FAXED REFERRAL UPDATE TO TROY [facility], . PT HAS BEEN DECLINED BY [facility] ([facility]), [facility] ([facility]), [facility] INPATIENT REHAB (PRIVATE PAY), [facility] AND [facility]. - CM WAITING ADMISSION DETERMINATION FROM [facility] FOR MOVIE CRITIC CARE PLACEMENT IN ONE OF HER AFFILIATED NURSING HOMES. - CM WAITING ADMISSION DETERMINATION FROM [facility] FOR MOVIE CRITIC CARE. - CM WAITING DETERMINATION FROM TROY [facility] FOR GROUP HOME CARE PLACEMENT IN ONE OF HER AFFILIATED NURSING HOMES. ROSANNA Monroe DCP- Discharge Planning Updated by [id number]: Sandor Carrasquillo on 06/17/19 8:[address] Patient Name: TROY AHYWOOD Encounter No: [id number] : 1955 Primary Insurance: MED[place]ID [place] Anticipated DC Date: 06-11-2019 Planned Disposition: Nursing Facility [facility] Cert External Planned Provider: FIRST ACCEPTING FACILITY DCP follow-up note: CM ATTEMPTED TO EMAIL [employer] FOR UPDATE ON APPLICATION AT [email or web address]. THE EMAIL FAILED. CM FAXED REQUEST FOR UPDATE TO [employer] AT [phone] AND [phone]. - CM WAITING ADMISSION DETERMINATION FROM [facility] FOR GROUP HOME CARE PLACEMENT IN ONE OF HER AFFILIATED NURSING HOMES. - CM WAITING [facility] [place] REGARDING TREY REHAB. - CM WAITING DETERMINATION FROM TROY [facility] FOR GROUP HOME CARE PLACEMENT IN ONE OF HER AFFILIATED NURSING HOMES. Sandor Carrasquillo, CASE MANAGEMENT Sandor Carrasquillo DCP- Discharge Planning Updated by [id number]: Sandor Carrasquillo on 06/16/19 4:[address] Patient Name: TROY HAYWOOD Encounter No: [id number] : 1955 Primary Insurance: [place]ID [place] Anticipated DC Date: 06-11-2019 Planned Disposition: Nursing Facility [facility] Cert External Planned Provider: FIRST ACCEPTING FACILITY DCP follow-up note: CM FAXED REFERRAL UPDATE TO TROY [facility] FOR MOVIE CRITIC CARE PLACEMENT AT [phone]. CM FAXED REFERRAL UDPATE TO MITCH [facility] AT [phone]. CM FAXED UPDATE TO [facility] AT [phone] FOR MOVIE CRITIC CARE PLACEMENT. - CM WAITING ADMISSION DETERMINATION FROM [facility] FOR MOVIE CRITIC CARE PLACEMENT IN ONE OF HER AFFILIATED NURSING [facility]. - CM WAITING RETURN CALL FROM [facility] [place] REGARDING TREY REHAB. - CM WAITING DETERMINATION FROM TROY MIMS OF [facility] FOR MOVIE CRITIC CARE PLACEMENT IN ONE OF HER AFFILIATED NURSING HOMES. Sandor Carrasquillo, CASE MANAGEMENT DCP- Discharge Planning Updated by [id number]: Sandor Carrasquillo on 06/15/19 3:[address] Patient Name: TROY HAYWOOD Encounter No: [id number] : 1955 Primary Insurance: [place]ID [place] Anticipated DC Date: 06-11-2019 Planned Disposition: Nursing Facility [facility] Cert External Planned Provider: FIRST ACCEPTING DCP follow-up note: CHRISTOPHER SENT MESSAGE TO TROY MIMS, , OF [facility] ASKING FOR GROUP HOME CARE PLACEMENT ASSISTANCE WITH REHAB IF POSSIBLE. CHRISTOPHER FAXED REFERRAL TO TROY AT [phone]. CM CALLED [facility] IN [facility], , HE HAS NOT BEEN ABLE TO GET A DETERMINATION ON TREY AND CANNOT LOCATE THE PERSON IN CORPORATE WHO HAS PT'S TREY APPLICATION. HE WILL CONTINUE TO TRY TO LOCATE WHO IS PROCESSING THE APPLICATION HE HAS NOT SEEN IT OR HEARD ANY DETERMINATION. CHRISTOPHER FAXED REFERRAL UDPATE TO [facility] AT [phone]. M FAXED UPDATE TO [facility] AT [phone]. CHAR INFORMED CM THAT SHE HAS NO BERIATRIC SENIOR LIVING BED YET BUT IS HOPEUL TO HAVE AN OPENING "SOON". ASKED BY PT'S DAUGHTER, CM CALLED AND SPOKE TO RUT, , OF [facility] AND REQUESTED PRIVATE PAY DOWN PAYMENT AND MONTHLY PAYMENT AMOUNTS FOR REHAB AT [facility]. CM FAXED REFERRAL TO [facility] AT [phone]. - CM WAITING ADMISSION DETERMINATION FROM [facility] FOR MOVIE CRITIC CARE PLACEMENT IN ONE OF HER AFFILIATED NURSING HOMES. - CM WAITING RETURN CALL FROM [facility] IN [place] REGARDING TREY REHAB. - CM WAITING DETERMINATION FROM [facility]OY [facility] FOR MOVIE CRITIC CARE PLACEMENT IN ONE OF HER AFFILIATED NURSING HOMES. Sandor Carrasquillo, CASE MANAGEMENT Appended by Sandor Carrasquillo on 06/15/2019 16:28 VACUUM PAN OPERATOR: CHRISTOPHER FAXED [facility] TREY APPLICATION TO [facility] [place]. CM SPOKE TO TROY OF [facility] WHO EXPLAINED SHE IS CONTINUING TO LOOK FOR SENIOR LIVING PLACEMENT; THE OBSTACLE IS THE COSTS OF RENTING BIPAP AND OTHER BERIATRIC EQUIPMENT. CM SPOKE TO RUT OF [facility] INPATIENT REH[facility], THEY WILL NOT CONSIDER PATIENT FOR REHAB ON PRIVATE PAY BASIS AND WOULD DENY PATIENT REGARDLESS DUE TO HER "ENTIRE SITUATION". CM NOTIFIED PT AND DAUGHTER IN ROOM OF PROGRESS AND LACK THEREOF. CM ASKED TO SEND REFERRALS TO OTHER NURSING FACILITIES, PT REFUSED STATING SHE WANTS TO WAIT FOR DEFINITE ANSWER FROM [facility] FOR TREY REHAB SERVICES. - CM WAITING ADMISSION DETERMINATION FROM [facility] FOR MOVIE CRITIC CARE PLACEMENT IN ONE OF HER AFFILIATED NURSING HOMES. - CM WAITING RETURN CALL FROM [facility] IN [place] REGARDING TREY REHAB. - CM WAITING DETERMINATION FROM TROY MIMS OF [facility] FOR GROUP HOME CARE PLACEMENT IN ONE OF HER AFFILIATED NURSING HOMES. Sandor Carrasquillo CASE MANAGEMENT DCP- Discharge Planning Updated by [id number]: Sandor Carrasquillo on 06/11/19 3:[address] Patient Name: TROY HAYWOOD Encounter No: [id number] : 1955 Primary Insurance: [place]ID [place] Anticipated DC Date: 06-11-2019 Planned Disposition: Nursing Facility [facility] External Planned Provider: : DCP follow-up note: CM RECEIVED MESSAGE FROM TROY OF [facility], THEY WILL NOT ACCEPT PT. CM FAXED REFERRAL UDPATE TO [facility] AT [phone]. CM FAXED UPDATE TO [facility] AT [phone]. CHAR INFORMED CM THAT SHE ANTICIPATES A BERIATRIC SENIOR LIVING BED OPENING "SOON". CM NOTIFIED PT AND DAUGHTER OF PROGRESS / LACK THEREOF IN ROOM. - CM WAITING ADMISSION DETERMINATION FROM [facility] FOR MOVIE CRITIC CARE PLACEMENT IN ONE OF HER AFFILIATED [facility]. - CM WAITING RETURN CALL FROM [facility] IN [place] REGARDING TREY REHAB. Sandor Carrasquillo CASE MANAGEMENT DCP- Discharge Planning Updated by [id number]: Sandor Carrasquillo on 06/10/19 3:[address] Patient Name: TROY DESHIRE Encounter No: [id number] : 1955 Primary Insurance: [place] Anticipated DC Date: 06-11-2019 Planned Disposition: Nursing Facility [facility] Cert External Planned Provider: FIRST ACCEPTING FACILITY DCP follow-up note: - CM RECEIVED CALL FROM [facility], THEY HAVE NOT AVAILABILITY FOR TREY REHAB BED. CM RECEIVED CALL FROM MITCH OF [facility] IN [facility], THEY HAVE NOT RECEIVED TREY APPLICATION AND HAVE NO CURRENT BEDS BUT WOULD CONSIDER PT. CM RETURNED CALL TO MITCH AT [facility], , INFORMED THAT TREY APPLICATION HAD BEEN FAXED TO [facility] IN [facility], TELEPHONE CONTACT [phone]. HETAL ASKED FOR REFERRAL TO BE SENT AND HE WILL SCREEN FOR ADMISSION. CM FAXED REFERRAL TO [facility] AT [phone]. CM NOTIFIED PT AND DAUGHTER OF PROGRESS IN ROOM. PT AND DAUGHTER ASKED FOR CM TO SEND REFERRAL TO [facility] IN [place]. CHOICE SIGNED. CM FAXED REFERRAL TO [facility]IA TROY [facility] AT [phone]. - CM WAITING ADMISSION DETERMINATION FROM [facility] FOR MOVIE CRITIC CARE PLACEMENT IN ONE OF HER AFFILIATED NURSING HOMES. - CM WAITING RETURN CALL FROM [facility] IN [place] REGARDING TREY REHAB. - CM WAITING ADMISSION DETERMINATION FROM [facility] GROUP HOME FACILITY. Sandor Carrasquillo, CASE MANAGEMENT DCP- Discharge Planning Updated by [id number]: Sandor Carrasquillo on 06/09/19 3:[address] Patient Name: TROY HAYWOOD Encounter No: [id number] : 1955 Primary Insurance: [place]ID [place] Anticipated DC Date: 06-10-2019 Planned Disposition: Nursing Facility [facility] Cert External Planned Provider: FIRST ACCEPTING FACILITY DCP follow-up note: CM SPOKE TO PT AND DAUGHTER, CHEPE, THEY WILL LET CM SEEK SENIOR LIVING PLACEMENT FOR THEM TO CONSIDER BUT STILL DO NOT WANT GROUP HOME CARE IF THEY CAN OBTAIN REHAB THROUGH THE [facility]. DAUGHTER ADVISED SHE HAS CONFIRMED RECEIPT OF THE APPLICATION FAXED TO THE [facility] AND IS IN PROCESS OF REVIEW. DAUGHTER ASKED CM TO CHECK INTO REHAB'S THAT MAY HAVE [facility] AFFILIATION. CM CALLED [facility], , REQUESTED ASSISTANCE IN GROUP HOME CARE PLACEMENT WITH INTENT TO RETURN HOME. CHAR STATES THAT SHE MAY HAVE HOME'S WILL ACCEPT BARIATRIC PATIENT AND WILL ATTEMPT PLACEMENT. CHAR WILL MEET WITH PT LATER TODAY. CM FAXED REFERRAL TO [facility] AT [phone]. CM SPOKE TO TROY MIMS OF [facility], TROY INFORMED CM THAT SHE HAS NO HOMES IN HER GROUP THAT MAY ASSIST WITH PLACEMENT. CM CALLED [facility], WAS ADVISED BY RUT THAT THEY WILL NOT CONSIDER FOR TREY CARE, THEY ARE NOT AFFILIATED WITH [facility]. CM CALLED [facility], , SPOKE TO CHELO WHO INFORMED CM THAT THEY ARE NOT AFFILIATED WITH [facility] BUT WILL CONSIDER PT FOR TREY REHAB. CM FAXED REFERRAL TO [facility] AT [phone]. CM CALLED [facility] IN [place], , SPOKE TO DHEERAJ WHO REPORTS THEY HAVE NO OPEN REHAB BEDS AND HAVE NO PROJECTED DISCHARGES SOON. THEY DO NOT HAVE WEIGHT LIMITS. DHEERAJ DID NOT WANT REFERRAL FAXED, SHE WILL REPORT TO BREN WHO WILL CHECK WITH THE [facility] PROGRAM REGARDING APPLICATION STATUS AND CALL CM TOMORROW, 06-10-19. CM NOTIFIED PT IN ROOM OF PROGRESS. PT STATES SHE MAY BE ABLE TO TRANSFER SELF AND GO HOME BEFORE CM FINDS REHAB FOR HER. - CM WAITING ADMISSION DETERMINATION FROM [facility] FOR MOVIE CRITIC CARE PLACEMENT IN ONE OF HER AFFILIATED NURSING HOMES. - CM WAITING ADMISSION DETERMINATION FROM [facility] FOR TREY REHAB BED. - CM WAITING RETURN CALL FROM [facility] IN [place] REGARDING TREY REHAB. Sandor Carrasquillo, CASE MANAGEMENT DCP- Discharge Planning Updated by [id number]: Sandor Carrasquillo on 06/04/19 4:[address] Patient Name: RTOY HAYWOOD Encounter No: [id number] : 1955 Primary Insurance: MED[place]ID [place] Anticipated DC Date: 06-02-2019 Planned Disposition: Nursing Facility [facility] Cert External Planned Provider: TO BE DETERMINED DCP follow-up note: CM SPOKE TO PT AND DAUGHTER CHEPE, IN ROOM. PT IS AND FOR PAST 10 YEARS, BUT NOT LEGALLY. THEY CANNOT QUALIFY FOR MEDICAID FOR GROUP HOME CARE DUE TO NOT HAVING SPOUSE FINANICAL INFORMATION. PT AND DAUGHTER BOTH STATE THAT THEY DO NOT WANT TO PUT PT INTO MOVIE CRITIC SENIOR LIVING CARE WHERE SHE WILL JUST LAY IN THE BED. THEY DO NOT WANT FURTHER SENIOR LIVING REFERRALS FAXED OUT. CM DISCUSSED THAT PT IS STABLE FOR DISCHARGE MEDICALLY. PT'S DAUGHTER REPORTS PT IS NOT HAVING BOWEL MOVEMENTS AND THAT THE FECES COMING OUT IS COMING AROUND AN IMPACTION AND NO ONE IS ADDRESSING THIS. CM NOTIFIED TOBY THOMAS WHO PROVIDED ORDERS FOR MEDICATION TO TREAT CONDITION. BEDSIDE NURSE NOTIFIED. PT'S DAUGHTER PROVIDED CM WITH 77 PAGES AND ASKED CM TO FAX TO [facility] FOR FINANCIAL ASSISTANCE REGARDING REHAB SERVICES FOR PT. CM FAXED TO [facility] [employer] ASSISTANCE PROGRAM AT [phone]. PT'S DAUGHTER ADVISED THAT IF APPROVED, PT WILL HAVE TO GO [facility]. PT WAS DECLINED GROUP HOME CARE PLACEMENT AT [facility]; PT AND FAMILY DECLINE TO HAVE FURTHER REFERRALS SENT OUT. FAMILY IS TRYING TO SECURE FINANCIAL ASSISTANCE FOR REHAB SERVICES THROUGH [facility]. CM TO CONTINUE TO FOLLOW AND ASSIST. Sandor Carrasquillo, CASE MANAGEMENT DCP- Discharge Planning Updated by [id number]: Sandor Carrasquillo on 06/04/19 11:[address] Patient Name: TROY HAYWOOD Encounter No: [id number] : 1955 Primary Insurance: MEDICAID [facility] DC Date: 06-02-2019 Planned Disposition: Nursing Facility [facility] External Planned Provider: WAITING FAMILY DECISION DCP follow-up note: CM RECEIVED CALL FROM ANNIE OF [facility] WHO ADVISED CM THAT PT HAS BEEN FIANCIALLY DENIED FOR PLACEMENT. CM SPOKE TO PT IN ROOM WHO ADVISED THAT SHE UNDERSTOOD THEY WERE JUST GOING TO LEAVE HER LAYING IN BED FOR A MONTH AND NOT GIVE HER ANY REHAB SERVICES. CM EXPLAINED THAT MEDICAID DOES NOT PAY FOR REHAB SERVICES, ONLY MOVIE CRITIC CARE AND PT WOULD RECEIVE WHAT THEY CALL "RESTORATIVE CARE" FROM STAFF AT ANY SENIOR LIVING, NOT THERAPY SERVICES. PT STATES SHE IS NOW ABLE TO STAND UP WITH THERAPY HERE. CM EXPLAINED THAT PT IS GETTING 8 TO 16 MINUTES OF THERAPY PER DAY AND THAT ALTHOUGH CM WAS HAPPY WITH PROGRESSION, PT IS MEDICALLY STABLE TO LEAVE THE HOSPITAL AND THAT SHE WOULD RECEIVE MORE THERAPY AT HOME WITH HOME HEALTH THAN IN THIS ACUTE HOSPITAL SETTING. PT STATES SHE IS NOT SURE WHAT HAPPENED, THAT CHEPE IS TAKING CARE OF THIS FOR HER AND THAT CHEPE WILL BE TO THE HOSPITAL IN A LITTLE WHILE TO SPEAK TO CM; PT BELIVES THAT CHEPE IS AGAIN WORKING ON TRYING TO GET TREY REHAB CARE THROUGH THE [facility]. PT HAS BEEN FINANCIALLY DECLINED FOR GROUP HOME CARE PLACEMENT BY [facility]. PT DEFERRING PLANNING TO HER DAUGHTER, CHEPE. CM WAITING FAMILY TO ARRIVE TO DISCUSS FURTHER DISCHARGE PLANNING. ROSANNA Monroe DCP- Discharge Planning Updated by [id number]: Sandor Carrasquillo on 06/03/19 7:[address] Patient Name: TROY HAYWOOD Encounter No: [id number] : 1955 Primary Insurance: MED[place]ID [place] Anticipated DC Date: 06-02-2019 Planned Disposition: Nursing Facility [facility] Cert External Planned Provider: [facility] GROUP HOME CARE MEDICAID BED DISCHARGE PLANNING NOTE: CM FAXED REFERRAL UPDATE TO [facility] AT [phone]. CM WAITING ADMISSION DETERMINATION FROM [facility] FOR MOVIE CRITIC CARE. WAITING FAMILY TO PROVIDE FINANCIAL INFORMATION FOR MOVIE CRITIC CARE MEDICAID APPLICATION TO FACILITY. ROSANNA Monroe DCP- Discharge Planning Updated by [id number]: Sandor Carrasquillo on 06/02/19 3:[address] Patient Name: TROY HAYWOOD Encounter No: [id number] : 1955 Primary Insurance: [place]ID [place] Anticipated DC Date: 06-02-2019 Planned Disposition: Nursing Facility [facility] Cert External Planned Provider: [facility], MOVIE CRITIC CARE MEDICAID BED DCP follow-up note: CM FAXED REFERRAL UPDATE TO [facility] AT [phone]. CM WAITING ADMISSION DETERMINATION FROM [facility] FOR MOVIE CRITIC CARE. Sandor Carrasquillo CASE MANAGEMENT Appended by Sandor Carrasquillo on 06/02/2019 16:50 VACUUM PAN OPERATOR: CM RECEIVED CALL FROM LUIS OF [facility], , THEY RECEIVED THE UPDATE BY FAX AND WILL CONTACT FAMILY REGARDING FINANCIALS. LUIS REPORTS THEY ARE STILL WAITING ON NURSING TO ACCEPT FOR MOVIE CRITIC CARE AND WILL ALSO NEED FINANCIAL CLEARANCE TO ENTER THE FACILITY. CM WAITING ADMISSION DETERMINATION FROM [facility] FOR MOVIE CRITIC CARE. [facility] CONTACTING FAMILY TO ASSIST WITH FINANCIAL INFORMATION FOR MOVIE CRITIC CARE MEDICAID APPLICATION. Sandor Carrasquillo CASE MANAGEMENT DCP- Discharge Planning Updated by [id number]: Sandor Carrasquillo on 06/01/19 4:[address] Patient Name: TROY HAYWOOD Encounter No: [id number] : 1955 Primary Insurance: MED[place]ID [place] Anticipated DC Date: 06-02-2019 Planned Disposition: Nursing Facility [facility] Cert External Planned Provider: [facility], GROUP HOME [facility] MEDICAID BED DCP follow-up note: CM MET WITH PT AND DAUGHTER [place], WHO HAS MADE IT FROM [place] [employer]. UPDATE PROVIDED. CM CALLED [facility], DALE INFORMED CM THAT REFERRAL FROM AND [facility] WAS RECEIV[facility], STAFF IN MEETING TODAY AND THEY WILL FINISH ADMISSION REVIEW TOMORROW, 06-02-19. CM NOTIFIED PT AND DAUGHTER IN ROOM. CM [facility]. Sandor Carrasquillo CASE MANAGEMENT DCP- Discharge Planning Updated by [id number]: Sandor Carrasquillo on 05/31/19 3:[address] Patient Name: TROY HAYWOOD Encounter No: [id number] : 1955 Primary Insurance: MED[place]ID [place] Anticipated DC Date: 06-01-2019 Planned Disposition: Nursing Facility [facility] Cert External Planned Provider: [facility] MEDICAID BED DCP follow-up note: AFTER SEVERAL VISITS WITH PT IN ROOM, PHONE CALLS WITH DAUGHTERS, [facility] AND [facility], PT DECIDED TO CONSENT TO 30 DAYS OF GROUP HOME CARE AT [facility] AFTER PT'S DAUGTHERS, WITH AIDE OF [facility], LOCATED [facility] WHO WILL CONSIDER PT FOR CARE. PT SIGNED CHOICE. CM FAXED REFERRAL INFORMATION TO [facility] AT [phone]. CM WAITING ADMISSION DETERMINATION FROM [facility] FOR GROUP HOME CARE. Sandor Carrasquillo CASE MANAGEMENT DCP- Discharge Planning Updated by [id number]: Sandor Carrasquillo on 05/28/19 3:[address] Patient Name: TROY HAYWOOD Encounter No: [id number] : 1955 Primary Insurance: MED[place]ID [place] Anticipated DC Date: 06-02-2019 Planned Disposition: Home with Home Health External Planned Provider: [facility] DCP follow-up note: CM RECEIVED CALL FROM PT'S DAUGHTER, CHEPE, WHO VERIFIED THAT SHE WILL COME NEXT WEEK TO STAY WITH PT FOR TWO OR THREE WEEKS TO CARE FOR PT AT HOME. CHEPE WILL DISCUSS WITH HER MOTHER THAT SHE WILL HAVE TO BE ABLE TO STAND AND TRANSFER FOR CHEPE TO CARE FOR HER. CM REVIEWED THERAPY NOTES TO PRESENT. 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 PT HAS BEDSIDE COMMODE AND WHEELCHAIR AT HOME. CHEPE REPORTS NEED OF [facility]. CHEPE WILL DISCUSS WITH PT AND TRY TO MOTIVATE HER TO MEET THERAPY GOALS PRIOR TO ARRIVAL ON NEXT FRIDAY OR FRIDAY. PT'S DAUGHTER PLANS TO TAKE PT HOME NEXT FRIDAY OR FRIDAY, THEY WILL NEED [facility], DENIES FURTHER NEEDS. CM TO FOLLOW AND ASSIST NEEDED. Sandor Carrasquillo, CASE MANAGEMENT DCP- Discharge Planning Updated by [id number]: Sandor Carrasquillo on 05/28/19 2:[address] Patient Name: TROY HAYWOOD Encounter No: [id number] : 1955 Primary Insurance: MED[place]ID [place] Anticipated DC Date: Planned Disposition: Nursing Facility [facility] Cert External Planned Provider: TO BE DETERMINED DCP follow-up note: CM SPOKE TO [facility], SHE INFORMED CM THAT UPDATES HAVE BEEN RECEIVED, PT IS NOT MAKING ENOUGH PROGRESS WITH THERAPY THAT THEY DO NOT BELIEVE THAT PT WILL BE ABLE TO ACHIEVE THERAPY GOALS IN THE REMAINING 10 DAYS OF ACUTE DAYS THAT PT HAS REMAINING. CM NOTIFIED PT AND PROVIDED PT WITH NURSING FACILITY LISTING OF ALL AVAILABLE FACILITIES WITHIN [address] [place]. PT WILL SPEAK TO HER DAUGHTER AND NOTIFY CM OF HER CHOICES. CM CALLED HOUSTON SALGADO, , TWICE; AUTOMATED MESSAGE INFORMED CM THAT THE NUMBER WAS RESTRICTED OR CURRENTLY UNAVAILABLE. CM WAITING PT AND FAMILY TO PROVIDE NURSING FACILITY CHOICES FOR GROUP HOME CARE. Sandor Carrasquillo, CASE MANAGEMENT Appended by Sandor Carrasquillo on 05/28/2019 12:07 CDT: CM SPOKE TO PT IN ROOM, NOTIFIED PT THAT CM TRIED AND COULD NOT REACH DAUGHTER HOUSTON VIA PHONE. PT REPORTS SHE SPOKE TO HOUSTON WHO TOLD HER THAT [facility] WILL NOT TAKE HER DUE TO WEIGHT; PT'S DAUGHTER TOLD PT THAT [facility] PROBAB[facility] WILL NOT TAKE HER. PT REPORTS THERE IS ONE IN [place] THAT MIGHT CONSIDER HER. CM OFFERED CHOICE FORM FOR SIGNATURE SO THAT CM COULD SEND REFERRALS AND BEGIN CALLING TO FIND PLACEMENT. PT REFUSED AND STATES SHE HAS A DAUGHTER, CHEPE, WHO IS A REGISTERED NURSE, THAT MAY BE COMING TO TAKE CARE OF PT AT HOME. PT'S DAUGHTER HOUSTON IS CALLING DAUGHTER CHEPE TO DISCUSS THE OPTION. PT STATES SHE WILL LET CM KNOW THE OUTCOME AND IF SHE WANTS CM TO EXPLORE SENIOR LIVING CARE FOR HER. CM WAITING PT AND FAMILY TO PROVIDE NURSING FACILITY CHOICES AND FOR PT TO SIGN CONSENT FOR SENIOR LIVING PLACEMENT. PT IS NOW HOPEFUL THAT HER DAUGHTER WHO IS A REGISTERED NURSE WILL COME AND STAY WITH PT AND TAKE CARE OF HER AT HOME. SANDOR CARRASQUILLO, CASE MANAGEMENT Appended by Sandor Carrasquillo on 05/28/2019 14:27 CDT: CM RECEIVED MESSAGE THAT PT WANTS TO SEE CM. CM MET WITH PT IN ROOM WHO INFORMED CM THAT SHE HIS NOT GOING TO A SENIOR LIVING, THAT HER DAUGHTER, CHEPE, WHO IS A NURSE, WILL BE HERE NEXT FRIDAY TO TAKE HER HOME AND WILL TAKE CARE OF PT AT HOME. PT ASKED FOR [facility] RES[facility]TION. CM DISCUSSED POSSIBLE NEED OF DEBORAH LIFT AND ASKED ABOUT ADDITIONAL EQUIPMENT. PT THINKS BY NEXT WEEK, SHE WILL BE ABLE TO TRANSFER WITHOUT AIDE OF LIFT DEVICE. CM NOTIFIED DR. FREEDMAN WHO INFORMED CM THAT HE WILL ORDER BLOOD GAS ON FRIDAY TO DETERMINE RESPIRATORY DISCHARGE NEEDS AT THAT TIME. PT HAS SIGNED RIGHT OF CHOICE FOR [facility] ALREADY. PT REPORTS HER DAUGHTER, WHO IS A REGISTERED NURSE, WILL BE HERE FRIDAY OF NEXT WEEK TO TAKE CARE OF PT AT HOME. PT PLANS TO DISCHARGE HOME WITH FAMILY AND [facility]. CM TO FOLLOW AND ASSIST NEEDED. SANDOR CARRASQUILLO, CASE MANAGEMENT DCP- Discharge Planning Updated by [id number]: Sandor Carrasquillo on 05/28/19 7:[address] Patient Name: TROY HAYWOOD Encounter No: [id number] : 1955 Primary Insurance: MEDICAID [facility] DC Date: Planned Disposition: Inpatient Rehab External Planned Provider: [facility] DCP follow-up note: CM FAXED REFERRAL UPDATE TO [facility] RE[facility] AT [phone]. CM WAITING ADMISSION DETERMINATION FROM [facility] INPATIENT RE[facility] IN [place]. Sandor Carrasquillo CASE MANAGEMENT DCP- Discharge Planning Updated by [id number]: Sandor Carrasquillo on 05/27/19 2:[address] Patient Name: TROY HAYWOOD Encounter No: [id number] : 1955 Primary Insurance: MEDICAID [place] Anticipated DC Date: Planned Disposition: Inpatient Rehab External Planned Provider: [facility] DCP follow-up note: CM FAXED REFERRAL UPDATE TO [facility] AT [phone]. CM WAITING ADMISSION DETERMINATION FROM [facility] INPATIENT RE[facility] IN [place]. Sandor Carrasquillo, CASE MANAGEMENT Appended by Sandor Carrasquillo on 05/27/2019 14:41 CDT: CM CALLED [facility], , LEFT MESSAGE ASKING FOR UPDATE ON REFERRAL AND TO KNOW IF THEY ARE STILL CONSIDERING PT FOR REHAB. CM WAITING ADMISSION DETERMINATION FROM [facility] IN[facility] IN [place]. Sandor Carrasquillo, CASE MANAGEMENT DCP- Discharge Planning Updated by [id number]: Jesica Cartagena on 05/26/19 4:[address] Patient requested Trapeze bar to allow her to sit up in hospital bed. CM spoke Dr. Lawson and obtained approval for Trapeze bar. CM notified Radha in materials management of request for Trapeze bar. CM completed and gave Radha the order form for the Trapeze bar. Trapeze bar will be delivered. CM notified patient's CM, Christiano Carrasquillo, on status of Trapeze bar. DCP- Discharge Planning Updated by [id number]: Sandor Carrasquillo on 05/26/19 3:[address] Patient Name: TROY HAYWOOD Encounter No: [id number] : 1955 Primary Insurance: MEDICAID [place] Anticipated DC Date: Planned Disposition: Inpatient Rehab External Planned Provider: [facility] DCP follow-up note: CM SPOKE TO PT'S DAUGHTER VIA PHONE, HOUSTON SALGADO, . CM OBTAINED PERMISSION FROM PT TO DISCUSS CARE, TREATMENT AND DISCHARGE PLANNING WITH HOUSTON. HOUSTON INFORMED CM THAT PT WAS IN REHAB AT [facility] LAST YEAR AND THEY WANT REFERRED TO [facility] AGAIN. CM DISCUSSED PT'S VERY LOW LEVEL OF PHYSICAL CONDITIONING. PT'S DAUGHTER FEELS THAT PT CAN PARTICIPATE WITH THERAPY WITH GOAL TO RETURN HOME PREVIOUS WITH ABILITY TO TRANSFER TO ELECTRIC SCOOTER AND HOME HEALTH FOR CONTINUED HOME SERVICES. HOUSTON VERIFIED THAT PT HAS NO ADULTS ABLE TO LIVE WITH AND ASSIST PT AT HOME AT THIS TIME. HOUSTON ASKED ABOUT [facility] REHAB SERVICES THAT MAY TAKE PT AT NO COSTS DUE TO INCOME. CM INFORMED HOUSTON THAT CM WAS NOT FAMILIAR WITH ANY OF THESE PROGRAMS. HOUSTON WOULD LIKE TO HAVE PT EVALUATED FOR REHAB AT [facility] PRIOR TO ANY CONSIDERATION OF SENIOR LIVING PLACEMENT PT WILL NOT GET THERAPY THERE. CM SPOKE TO PT WHO IS IN AGREEMENT WITH PLAN. CM CALLED [facility], , NOTIFIED OF REHAB REQUEST; PT HAS ONLY 24 ACUTE DAYS THAT STARTED IN JANUARY, IT DEPENDS ON HOW MANY HAVE BEEN ALREADY USED, PT'S CONDITION AND NEEDS THAT WOULD HAVE TO BE MET IN THE REMAINING DAYS THAT PT HAS TO USE FOR REHAB . CM FAXED REFERRALINFORMATION TO [facility] WITH CURRENT MAR AT [phone]. CM WAITING ADMISSION DETERMINATION FROM [facility]PAT[facility] IN [place]. Sandor Carrasquillo, CASE MANAGEMENT Appended by Sandor Carrasquillo on 05/26/2019 15:24 CDT: CM MET WITH PT, GRANDDAUGHTER, DAUGHTER HOUSTON VIA PHONE WITH CM MANDREL MAKER, UNIT NURSE LAY OUT FORMER, REPIRATORY THERAPIST AND MANDREL MAKER OF THERAPY SERVICES REGARDING DISCHARGE PLANNING. CONCERNS OF PT'S PLAN TO GO HOME IN CURRENT CONDITION DISCUSSED. PT AND DAUGHTER HAVE ALREADY ASKED FOR REFERRAL TO [facility] REHAB, CM HAS SENT IT AND WAITING DETERMINATION. PLAN "B" WAS AGREED TO BE NURSING FACILITY IF NOT ACCEPTED TO [facility] AND THAT CM WOULD ATTEMPT TO FIND ONE THAT MAY DONATE REHAB SERVICES. PT'S DAUGHTER IS RESEARCHING [employer] FROM [facility] FOR REHAB SERVICES. CM WAITING ADMISSION DETERMINATION FROM [facility] IN [place]. Sandor Carrasquillo, CASE MANAGEMENT DCP- Discharge Planning Updated by [id number]: Sandor Carrasquillo on 05/25/19 2:[address] Patient Name: TROY HAYWOOD Encounter No: [id number] : 1955 Primary Insurance: MEDICAID [place] Anticipated DC Date: Planned Disposition: Home HEALTH External Planned Provider: [facility], VISITING NURSES [facility] DC follow-up note: CM MET WITH PT IN ROOM TO DISCUSS DISCHARGE NEEDS AND PLANNING. CM DISCUSSED AVAILABILITY OF HOME HEALTH, REHAB SERVICES AND MEDICAL EQUIPMENT. PT REFUSES GROUP HOME FACILITY PLACEMENT. PT STATES PLAN TO RETURN HOME. 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 PT WAS ABLE TO AMBULATE SMALL DISTANCES AND TRANSFER SELF FROM BED TO ELECTRIC WHEELCHAIR AT HOME. PT THINKS SHE IS GOING TO BE ABLE TO TRANSFER SELF TO GO BACK HOME. PT WANTS HOME HEALTH RESUMED TO GO HOME. CM EXPRESSED CONCERN OF PT'S CURRENT LEVEL OF FUNCTIONING AND RETURNING HOME. PT DENIES HAVING FRIENDS OR FAMILY TO ASSIST WITH HER CARE AT HOME BUT IS NOT GOING TO A SENIOR LIVING. PT THINKS SHE WILL NEED AN AMBULANCE FOR TRANSPORT HOME HER ELECTRIC WHEELCHAIR IS THERE. CM EXPLAINED TO PT THAT SHE WILL NEED TO DEMONSTRATE WITH THERAPY THE ABILITY TO TRANSFER AND SIT IN CHAIR FOR DISCHARGE. PT STATED UNDRESTANDING. CHOICE FOR [facility] HOME HEALTH SIGNED. 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 PT REFUSED NURSING FACILITY PLACEMENT. PT WILL NEED TO DEMONSTRATE ABILITY TO TRANSFER AND SIT IN CHAIR FOR DISCHARGE SHE HAS ELECTRIC WHEELCHAIR AT HOME. CM TO ARRANGE HOME HEALTH RESUMPTION WITH [facility]IS[facility] NURS[facility] IN [place] FOR DISCHARGE HOME. CM TO CONTINUE TO FOLLOW AND ASSIST NEEDED. Sandor Carrasquillo, CASE MANAGEMENT DCP- Discharge Planning Updated by [id number]: Aleisha Monroe on 05/19/19 7:[address] Patient Name: TROY HAYWOOD Admission Status: ER Accout number: [id number] Admission Date: 05-14-2019 : 1955 Admission Diagnosis: Attending: FABIO PINEDA Current LOS: 5 Anticipated DC Date: Planned Disposition: Home or Self Care Primary Insurance: MEDICAID [place] Discharge Planning Comments: CM met with patient and daughter to complete initial dc planning assessment. Patient recently extubated earlier today. CM educated patient on the CM role and verbal consent given by patient to complete assessment. Patient lives at home with her two young grand-daughters where she is independent with her care. At discharge patient plans to return home and feels this is a safe discharge. CM discussed availability of home health, rehab services, and medical equipment. Patient has Home 02 and HH with unknown providers. CM will f/u with patient @ later date to see if she is able to give providers. Patient denied known discharge needs at this time. CM will continue to follow and will assist as needed with dc plans/needs. Water Pollution Control Inspector: Aleisha Monroe DCPIA - Discharge Planning Initial Assessment Updated by NAYLA: Sandor Carrasquillo on 05/28/19 9:36 am * How many steps to enter\\exit or inside your home? * PCP uncertain ? * Pharmacy [facility] * Preadmission Environment Home with Family * ADLs Independent * Other Equipment HOME 02, WALKER, SCOOTER, BSC, SC * List name and contact numbers for known caregivers / representatives who currently or will assist patient after discharge: CHEPE SUN - DAUGHTER- [phone] HOUSTON SALGADO, DTR - [phone] * Verbal permission to speak to the caregivers and representatives has been obtained from the patient. Yes * Community resources currently utilized Home Health * Please name any agencies selected above. [facility] * Additional services required to return to the preadmission environment? No * Can the patient safely return to the preadmission environment? Yes * Has this patient been hospitalized within the prior 30 days at any hospital? No Coverage Notice Reviewer: [id number] Carrasquillo Notice Issued Date-Time: 05/25/2019 14:05 Notice Type: Patient Choice Letter Notice Delivered To: Patient Relationship to Patient: Historical Site Guide Name: Delivery Method: HAND - Hand Delivered Marry Days: Prior Verbal Notification: Recipient Understood Notice: Yes Recipient Signature: Yes Med Rec Note Co-signed by Attending: Coverage Notice Comment: [facility]- VISITING NURSES [facility] Reviewer: [id number] Carrasquillo Notice Issued Date-Time: 05/31/2019 14:50 Notice Type: Patient Choice Letter Notice Delivered To: Patient Relationship to Patient: Historical Site Guide Name: Delivery Method: HAND - Hand Delivered Marry Days: Prior Verbal Notification: Recipient Understood Notice: Yes Recipient Signature: Yes Med Rec Note Co-signed by Attending: Coverage Notice Comment: [facility] Reviewer: [id number] Carrasquillo Notice Issued Date-Time: 06/09/2019 9:55 Notice Type: Patient Choice Letter Notice Delivered To: Patient Relationship to Patient: Historical Site Guide Name: Delivery Method: HAND - Hand Delivered Marry Days: Prior Verbal Notification: Recipient Understood Notice: Yes Recipient Signature: Yes Med Rec Note Co-signed by Attending: Coverage Notice Comment: [facility] ANY ACCEPTING GROUP HOME FACLITY Reviewer: [id number] Josef Carrasquillo Notice Issued Date-Time: 06/10/2019 16:25 Notice Type: Patient Choice Letter Notice Delivered To: Patient Relationship to Patient: Historical Site Guide Name: Delivery Method: HAND - Hand Delivered Marry Days: Prior Verbal Notification: Recipient Understood Notice: Yes Recipient Signature: Yes Med Rec Note Co-signed by Attending: Coverage Notice Comment: [facility] Reviewer: [email or web address] Josef Carrasquillo Notice Issued Date-Time: 06/17/2019 13:55 Notice Type: Patient Choice Letter Notice Delivered To: Patient Relationship to Patient: Historical Site Guide Name: Delivery Method: HAND - Hand Delivered Marry Days: Prior Verbal Notification: Recipient Understood Notice: Yes Recipient Signature: Yes Med Rec Note Co-signed by Attending: Coverage Notice Comment: ANY ACCEPTING GROUP HOME FACILITY Last DP export: 06/17/19 2:35 Patient Name: TROY HAYWOOD Page [id number] at 1509 All edits/amendments must be made on the electronic document DICTATION DATE: 06/18/191508 MECHANIC ASSISTANT: MISHEL 06/18/19 150 RPT#: [id number] DC DATE: STATUS: ADM IN [facility] [address] [place] [address] END OF REPORT
--- NOTE | 2019-06-18 15:19 | MORECARE ---
CASE MANAGEMENT DISCHARGE SUMMARY PATIENT: TROY HAYWOOD UNIT: [id number] ADM DATE: 05/14/19 AGE: 64 : 57 SEX: F ROOM/BED: D.2140 AUTHOR: DAYDAY,DOC PHYSICIAN: REFERRING PHYSICIAN: FABIO PINEDA MD DATE OF SERVICE: 06/18/19 Discharge Plan Patient Name: TROY HAYWOOD Facility: [facility]:[place] : 1955 Planned Disposition: Nursing Facility [facility] Cert Anticipated Discharge Date: 06/11/19 Discharge Date: Expected LOS: 28 Initial Reviewer: [id number] Initial Review Date: 05/19/2019 Generated: 06/18/19 4:19 pm Comments DCP- Discharge Planning Updated by [id number]: Sandor Carrasquillo on 06/18/19 2:[address] Patient Name: TROY HAYWOOD Encounter No: [id number] : 1955 Primary Insurance: [place]ID [place] Anticipated DC Date: 06-11-2019 Planned Disposition: Nursing Facility [facility] Cert External Planned Provider: FIRST ACCEPTING FACILITY, [facility] MEDICAID BED DCP follow-up note: CM RECEIVED CALL FROM [facility], , SPOKE TO [place] WHO INFORMED CM THEY ARE CONSIDERING PT FOR TREY THERAPY WITH THE GROUP HOME CARE PLACEMENT, REQUESTED FINANDICAL INFORMATION. CM FAXED FINANCIAL INFORMATION TO [facility] AT [phone]. CHAR [facility], . MET WITH PT AND ASSISTED WITH APPLICATION FOR "[employer]" MEDICARE AND IS STILL WORKING TO GET PT INTO ONE OF HER NURSING HOMES FOR THERAPY SERVICES. CM RECEIVED CALL FROM TROY OF [facility], SHE HAS A FACILITY IN [facility] THAT IS A NON PROFIT AND THEY ARE CONSIDERING PT FOR TREY REHAB SERVICES. PT HAS BEEN DECLINED BY [facility] ([facility]), [facility] ([facility]), [facility] (PRIVATE PAY), [facility]. - CM WAITING ADMISSION DETERMINATION FROM [facility] FOR GROUP HOME CARE PLACEMENT IN ONE OF HER AFFILIATED NURSING HOMES. - CM WAITING ADMISSION DETERMINATION FROM [facility] FOR [facility]. - CM WAITING DETERMINATION FROM TROY [facility]IM[facility] OF [facility] FOR GROUP HOME CARE PLACEMENT IN ONE OF HER AFFILIATED NURSING HOMES. Sandor Carrasquillo, CASE MANAGEMENT DCP- Discharge Planning Updated by [id number]: Sandor Carrasquillo on 06/17/19 2:[address] Patient Name: TROY HAYWOOD Encounter No: [id number] : 1955 Primary Insurance: [place]ID [place] Anticipated DC Date: 06-11-2019 Planned Disposition: Nursing Facility [facility] Cert External Planned Provider: FIRST ACCEPTING FACILITY, [facility] [employer] MEDICAID BED DCP follow-up note: CM RECEIVED PHONE MESSAGE FROM MITCH OF [facility], HE AND THE DOCTOR HAVE REVIEWED REFERRAL AND DECLINED PT. THEY DO NOT FEEL PT HAS MADE SIGNIFICANT PROGESS AND HAS NOT DEMONSTRATED ABILITY TO DO THREE HOURS OF PROGRESSIVE THERAPY. CM MET WITH PT IN ROOM, DISCUSSED DENIAL FOR INPATIENT REHAB BY [facility], DISCUSSED [facility] SKILLED NURSING OPTIONS. PT DID SIGN CONSENT FOR ANY [facility] FACILITY; PT ASKED CM TO KEEP PT CLOSE TO HOME POSSIBLE. CM EXPLAINED THAT A STATEWIDE SEARCH WILL BE DONE AND THAT ALL EFFORTS WILL BE MADE TO KEEP PT CLOSE TO [place] AND [place] POSSIBLE REQUESTED. CM CALLED PT'S DAUGHTER CHEPE AT PT'S REQUEST, NOTIFIED HER OF ABOVE INFORMATION. CHEPE AGREES THAT PT IS STILL NOT SAFE TO RETURN HOME IN HER CURRENT CONDITION AND AGREES WITH SKILLED NURSING PLACEMENT FOR RESTORATIVE CARE. CM CALLED [facility], , SPOKE TO [place] WHO INFORMED CM THAT THEY DO BERIATRIC CARE. CM FAXED REFERRAL TO [facility] AT [phone]. CM FAXED REFERRAL UPDATE TO [facility], . CHAR INQUIRED ABOUT WHEN DID PT BEGIN RECEIVING SOCIAL SECURITY DISABILTY, PT STATES 15 YEARS AGO, INFORMATION PROVIDED TO CHAR. CM FAXED REFERRAL UPDATE TO [facility]OY [facility], . PT HAS BEEN DECLINED BY [facility]), [facility] (PRIVATE PAY), [facility]. - CM WAITING ADMISSION DETERMINATION FROM [facility] FOR [facility] [employer] PLACEMENT IN ONE OF HER AFFILIATED NURSING HOMES. - CM WAITING ADMISSION DETERMINATION FROM [facility] FOR [facility]. - CM WAITING DETERMINATION FROM TROY [facility]IM[facility] FOR GROUP HOME CARE PLACEMENT IN ONE OF HER AFFILIATED NURSING HOMES. ROSANNA Monroe DCP- Discharge Planning Updated by [id number]: Sandor Carrasquillo on 06/17/19 8:[address] Patient Name: TROY HAYWOOD Encounter No: [id number] : 1955 Primary Insurance: [place]ID [place] Anticipated DC Date: 06-11-2019 Planned Disposition: Nursing Facility [facility] Cert External Planned Provider: FIRST ACCEPTING FACILITY DCP follow-up note: CM ATTEMPTED TO EMAIL [employer] FOR UPDATE ON APPLICATION AT [email or web address]. THE EMAIL FAILED. CM FAXED REQUEST FOR UPDATE TO [employer] AT [phone] AND [phone]. - CM WAITING ADMISSION DETERMINATION FROM [facility] FOR GROUP HOME CARE PLACEMENT IN ONE OF HER AFFILIATED NURSING HOMES. - CM WAITING RETURN CALL FROM [facility] [place] REGARDING TREY REHAB. - CM WAITING DETERMINATION FROM TROY MIM[facility] FOR GROUP HOME CARE PLACEMENT IN ONE OF HER AFFILIATED NURSING HOMES. Sandor Carrasquillo, CASE MANAGEMENT Sandor Carrasquillo DCP- Discharge Planning Updated by [id number]: Sandor Carrasquillo on 06/16/19 4:[address] Patient Name: TROY HAYWOOD Encounter No: [id number] : 1955 Primary Insurance: [place] Anticipated DC Date: 06-11-2019 Planned Disposition: Nursing Facility [facility] Cert External Planned Provider: FIRST ACCEPTING FACILITY DCP follow-up note: CM FAXED REFERRAL UPDATE TO TROY [facility] FOR [facility] PLACEMENT AT [phone]. CM FAXED REFERRAL UDPATE TO [facility] AT [phone]. CM FAXED UPDATE TO [facility] AT [phone] FOR [facility] PLACEMENT. - CM WAITING ADMISSION DETERMINATION FROM [facility] FOR [facility] [employer] PLACEMENT IN ONE OF HER AFFILIATED NURSING [facility]. - CM WAITING RETURN CALL FROM [facility] [place] REGARDING TREY REHAB. - CM WAITING DETERMINATION FROM TROY MIMS OF [facility] FOR [facility] [employer] [facility]ARE PLACEMENT IN ONE OF HER AFFILIATED NURSING HOMES. Sandor Carrasquillo, CASE MANAGEMENT DCP- Discharge Planning Updated by [id number]: Sandor Carrasquillo on 06/15/19 3:[address] Patient Name: TROY HAYWOOD Encounter No: [id number] : 1955 Primary Insurance: [place] Anticipated DC Date: 06-11-2019 Planned Disposition: Nursing Facility [facility] Cert External Planned Provider: FIRST ACCEPTING DCP follow-up note: CHRISTOPHER SENT MESSAGE TO TROY MIMS, , OF [facility] ASKING FOR GROUP HOME CARE PLACEMENT ASSISTANCE WITH REHAB IF POSSIBLE. CHRISTOPHER FAXED REFERRAL TO TROY AT [phone]. CM CALLED [facility] IN [facility], , HE HAS NOT BEEN ABLE TO GET A DETERMINATION ON TREY AND CANNOT LOCATE THE PERSON IN CORPORATE WHO HAS PT'S TREY APPLICATION. HE WILL CONTINUE TO TRY TO LOCATE WHO IS PROCESSING THE APPLICATION HE HAS NOT SEEN IT OR HEARD ANY DETERMINATION. CHRISTOPHER FAXED REFERRAL UDPATE TO [facility] AT [phone]. M FAXED UPDATE TO [facility] AT [phone]. CHAR INFORMED CM THAT SHE HAS NO BERIATRIC SKILLED NURSING BED YET BUT IS HOPEUL TO HAVE AN OPENING "SOON". ASKED BY PT'S DAUGHTER, CM CALLED AND SPOKE TO RUT, , OF [facility] AND REQUESTED PRIVATE PAY DOWN PAYMENT AND MONTHLY PAYMENT AMOUNTS FOR REHAB AT [facility]. CM FAXED REFERRAL TO [facility] AT [phone]. - CM WAITING ADMISSION DETERMINATION FROM [facility] FOR [facility]ARE PLACEMENT IN ONE OF HER AFFILIATED NURSING HOMES. - CM WAITING RETURN CALL FROM [facility] IN [place] REGARDING TREY REHAB. - CM WAITING DETERMINATION FROM TROY MIM[facility] FOR [facility] [employer]ARE PLACEMENT IN ONE OF HER AFFILIATED NURSING HOMES. Sandor Carrasquillo, CASE MANAGEMENT Appended by Sandor Carrasquillo on 06/15/2019 16:28 MANAGER LPN: CHRISTOPHER FAXED [facility] TREY APPLICATION TO [facility] CM SPOKE TO TROY OF [facility] WHO EXPLAINED SHE IS CONTINUING TO LOOK FOR SKILLED NURSING PLACEMENT; THE OBSTACLE IS THE COSTS OF RENTING BIPAP AND OTHER BERIATRIC EQUIPMENT. CM SPOKE TO RUT OF [facility], THEY WILL NOT CONSIDER PATIENT FOR REHAB ON PRIVATE PAY BASIS AND WOULD DENY PATIENT REGARDLESS DUE TO HER "ENTIRE SITUATION". CM NOTIFIED PT AND DAUGHTER IN ROOM OF PROGRESS AND LACK THEREOF. CM ASKED TO SEND REFERRALS TO OTHER NURSING FACILITIES, PT REFUSED STATING SHE WANTS TO WAIT FOR DEFINITE ANSWER FROM [facility] FOR TREY REHAB SERVICES. - CM WAITING ADMISSION DETERMINATION FROM [facility] FOR [facility] [employer] PLACEMENT IN ONE OF HER AFFILIATED NURSING HOMES. - CM WAITING RETURN CALL FROM [facility] IN [place] REGARDING TREY REHAB. - CM WAITING DETERMINATION FROM TROY MIMS OF [facility] FOR GROUP HOME CARE PLACEMENT IN ONE OF HER AFFILIATED NURSING HOMES. Sandor Carrasquillo CASE MANAGEMENT DCP- Discharge Planning Updated by [id number]: Sandor Carrasquillo on 06/11/19 3:[address] Patient Name: TROY HAYWOOD Encounter No: [id number] : 1955 Primary Insurance: [place] Anticipated DC Date: 06-11-2019 Planned Disposition: Nursing Facility [facility] External Planned Provider: : DCP follow-up note: CM RECEIVED MESSAGE FROM TROY OF [facility], THEY WILL NOT ACCEPT PT. CM FAXED REFERRAL UDPATE TO [facility] AT [phone]. CM FAXED UPDATE TO [facility] AT [phone]. CHAR INFORMED CM THAT SHE ANTICIPATES A BERIATRIC SKILLED NURSING BED OPENING "SOON". CM NOTIFIED PT AND DAUGHTER OF PROGRESS / LACK THEREOF IN ROOM. - CM WAITING ADMISSION DETERMINATION FROM [facility] FOR [facility] PLACEMENT IN ONE OF HER AFFILIATED [facility]. - CM WAITING RETURN CALL FROM [facility] IN [place] REGARDING TREY REHAB. Sandor Carrasquillo CASE MANAGEMENT DCP- Discharge Planning Updated by [id number]: Sandor Carrasquillo on 06/10/19 3:[address] Patient Name: TROY DESHIRE Encounter No: [id number] : 1955 Primary Insurance: [place] Anticipated DC Date: 06-11-2019 Planned Disposition: Nursing Facility [facility] Cert External Planned Provider: FIRST ACCEPTING FACILITY DCP follow-up note: - CM RECEIVED CALL FROM [facility], THEY HAVE NOT AVAILABILITY FOR TREY REHAB BED. CM RECEIVED CALL FROM MITCH OF [facility] IN [facility], THEY HAVE NOT RECEIVED TREY APPLICATION AND HAVE NO CURRENT BEDS BUT WOULD CONSIDER PT. CM RETURNED CALL TO MITCH AT [facility], , INFORMED THAT TREY APPLICATION HAD BEEN FAXED TO [facility] IN [facility], TELEPHONE CONTACT [phone]. HETAL ASKED FOR REFERRAL TO BE SENT AND HE WILL SCREEN FOR ADMISSION. CM FAXED REFERRAL TO [facility] AT [phone]. CM NOTIFIED PT AND DAUGHTER OF PROGRESS IN ROOM. PT AND DAUGHTER ASKED FOR CM TO SEND REFERRAL TO [facility] IN [place]. CHOICE SIGNED. CM FAXED REFERRAL TO [facility] VIA TROY [facility] AT [phone]. - CM WAITING ADMISSION DETERMINATION FROM [facility] FOR [facility] CARE PLACEMENT IN ONE OF HER AFFILIATED NURSING HOMES. - CM WAITING RETURN CALL FROM [facility] IN [place] REGARDING TREY REHAB. - CM WAITING ADMISSION DETERMINATION FROM [facility]. Sandor Carrasquillo, CASE MANAGEMENT DCP- Discharge Planning Updated by [id number]: Sandor Carrasquillo on 06/09/19 3:[address] Patient Name: TROY HAYWOOD Encounter No: [id number] : 1955 Primary Insurance: [place]ID [place] Anticipated DC Date: 06-10-2019 Planned Disposition: Nursing Facility [facility] Cert External Planned Provider: FIRST ACCEPTING FACILITY DCP follow-up note: CM SPOKE TO PT AND DAUGHTER, CHEPE, THEY WILL LET CM SEEK SKILLED NURSING PLACEMENT FOR THEM TO CONSIDER BUT STILL DO NOT WANT GROUP HOME CARE IF THEY CAN OBTAIN REHAB THROUGH THE [facility]. DAUGHTER ADVISED SHE HAS CONFIRMED RECEIPT OF THE APPLICATION FAXED TO THE [facility] AND IS IN PROCESS OF REVIEW. DAUGHTER ASKED CM TO CHECK INTO REHAB'S THAT MAY HAVE [facility] AFFILIATION. CM CALLED [facility], , REQUESTED ASSISTANCE IN GROUP HOME CARE PLACEMENT WITH INTENT TO RETURN HOME. CHAR STATES THAT SHE MAY HAVE HOME'S WILL ACCEPT BARIATRIC PATIENT AND WILL ATTEMPT PLACEMENT. CHAR WILL MEET WITH PT LATER TODAY. CM FAXED REFERRAL TO [facility] AT [phone]. CM SPOKE TO TROY MIMS OF [facility], TROY INFORMED CM THAT SHE HAS NO HOMES IN HER GROUP THAT MAY ASSIST WITH PLACEMENT. CM CALLED [facility], WAS ADVISED BY RUT THAT THEY WILL NOT CONSIDER FOR TREY CARE, THEY [facility] WITH [facility]. CM CALLED [facility], , SPOKE TO CHELO WHO INFORMED CM THAT THEY ARE NOT AFFILIATED WITH [facility] BUT WILL CONSIDER PT FOR TREY REHAB. CM FAXED REFERRAL TO [facility] AT [phone]. CM CALLED [facility] IN [place], , SPOKE TO DHEERAJ WHO REPORTS THEY HAVE NO OPEN REHAB BEDS AND HAVE NO PROJECTED DISCHARGES SOON. THEY DO NOT HAVE WEIGHT LIMITS. DHEERAJ DID NOT WANT REFERRAL FAXED, SHE WILL REPORT TO BREN WHO WILL CHECK WITH THE [facility] PRO[facility] REGARDING APPLICATION STATUS AND CALL CM TOMORROW, 06-10-19. CM NOTIFIED PT IN ROOM OF PROGRESS. PT STATES SHE MAY BE ABLE TO TRANSFER SELF AND GO HOME BEFORE CM FINDS REHAB FOR HER. - CM WAITING ADMISSION DETERMINATION FROM [facility] FOR [facility]ARE PLACEMENT IN ONE OF HER AFFILIATED NURSING HOMES. - CM WAITING ADMISSION DETERMINATION FROM [facility] FOR TREY REHAB BED. - CM WAITING RETURN CALL FROM [facility] IN [place] REGARDING TREY REHAB. Sandor Carrasquillo, CASE MANAGEMENT DCP- Discharge Planning Updated by [id number]: Sandor Carrasquillo on 06/04/19 4:[address] Patient Name: TROY HAYWOOD Encounter No: [id number] : 1955 Primary Insurance: MED[place]ID [place] Anticipated DC Date: 06-02-2019 Planned Disposition: Nursing Facility [facility] Cert External Planned Provider: TO BE DETERMINED DCP follow-up note: CM SPOKE TO PT AND DAUGHTER CHEPE, IN ROOM. PT IS AND FOR PAST 10 YEARS, BUT NOT LEGALLY. THEY CANNOT QUALIFY FOR MEDICAID FOR GROUP HOME CARE DUE TO NOT HAVING SPOUSE FINANICAL INFORMATION. PT AND DAUGHTER BOTH STATE THAT THEY DO NOT WANT TO PUT PT INTO [facility] SKILLED NURSING CARE WHERE SHE WILL JUST LAY IN THE BED. THEY DO NOT WANT FURTHER SKILLED NURSING REFERRALS FAXED OUT. CM DISCUSSED THAT PT IS STABLE FOR DISCHARGE MEDICALLY. PT'S DAUGHTER REPORTS PT IS NOT HAVING BOWEL MOVEMENTS AND THAT THE [facility] COMING OUT IS COMING AROUND AN IMPACTION AND NO ONE IS ADDRESSING THIS. CM NOTIFIED TOBY THOMAS WHO PROVIDED ORDERS FOR MEDICATION TO TREAT CONDITION. BEDSIDE NURSE NOTIFIED. PT'S DAUGHTER PROVIDED CM WITH 77 PAGES AND ASKED CM TO FAX TO [facility] FOR FINANCIAL ASSISTANCE REGARDING REHAB SERVICES FOR PT. CM FAXED TO [facility]IST[facility] PRO[facility] AT [phone]. PT'S DAUGHTER ADVISED THAT IF APPROVED, PT WILL HAVE TO GO TO A [facility] FOR REHAB. PT WAS DECLINED GROUP HOME CARE PLACEMENT AT [facility]; PT AND FAMILY DECLINE TO HAVE FURTHER REFERRALS SENT OUT. FAMILY IS TRYING TO SECURE FINANCIAL ASSISTANCE FOR REHAB SERVICES THROUGH [facility]. CM TO CONTINUE TO FOLLOW AND ASSIST. Sandor Carrasquillo, CASE MANAGEMENT DCP- Discharge Planning Updated by [id number]: Sandor Carrasquillo on 06/04/19 11:[address] Patient Name: TROY HAYWOOD Encounter No: [id number] : 1955 Primary Insurance: MEDICAID [facility] DC Date: 06-02-2019 Planned Disposition: Nursing Facility [facility] External Planned Provider: WAITING FAMILY DECISION DCP follow-up note: CM RECEIVED CALL FROM ANNIE OF [facility] WHO ADVISED CM THAT PT HAS BEEN FIANCIALLY DENIED FOR PLACEMENT. CM SPOKE TO PT IN ROOM WHO ADVISED THAT SHE UNDERSTOOD THEY WERE JUST GOING TO LEAVE HER LAYING IN BED FOR A MONTH AND NOT GIVE HER ANY REHAB SERVICES. CM EXPLAINED THAT MEDICAID DOES NOT PAY FOR REHAB SERVICES, ONLY [facility] AND PT WOULD RECEIVE WHAT THEY CALL "RESTORATIVE CARE" FROM STAFF AT ANY SKILLED NURSING, NOT THERAPY SERVICES. PT STATES SHE IS NOW ABLE TO STAND UP WITH THERAPY HERE. CM EXPLAINED THAT PT IS GETTING 8 TO 16 MINUTES OF THERAPY PER DAY AND THAT ALTHOUGH CM WAS HAPPY WITH PROGRESSION, PT IS MEDICALLY STABLE TO LEAVE THE HOSPITAL AND THAT SHE WOULD RECEIVE MORE THERAPY AT HOME WITH HOME HEALTH THAN IN THIS ACUTE HOSPITAL SETTING. PT STATES SHE IS NOT SURE WHAT HAPPENED, THAT CHEPE IS TAKING CARE OF THIS FOR HER AND THAT CHEPE WILL BE TO THE HOSPITAL IN A LITTLE WHILE TO SPEAK TO CM; PT BELIVES THAT CHEPE IS AGAIN WORKING ON TRYING TO GET TREY REHAB CARE THROUGH THE [facility] PRO[facility]. PT HAS BEEN FINANCIALLY DECLINED FOR GROUP HOME CARE PLACEMENT BY [facility]. PT DEFERRING PLANNING TO HER DAUGHTER, CHEPE. CM WAITING FAMILY TO ARRIVE TO DISCUSS FURTHER DISCHARGE PLANNING. ROSANNA Monroe DCP- Discharge Planning Updated by [id number]: Sandor Carrasquillo on 06/03/19 7:[address] Patient Name: TROY HAYWOOD Encounter No: [id number] : 1955 Primary Insurance: [place]ID [place] Anticipated DC Date: 06-02-2019 Planned Disposition: Nursing Facility [facility] Cert External Planned Provider: [facility] GROUP HOME CARE MEDICAID BED DISCHARGE PLANNING NOTE: CM FAXED REFERRAL UPDATE TO [facility] AT [phone]. CM WAITING ADMISSION DETERMINATION FROM [facility] FOR [facility]. WAITING FAMILY TO PROVIDE FINANCIAL INFORMATION FOR [facility] MEDICAID APPLICATION TO FACILITY. ROSANNA Monroe DCP- Discharge Planning Updated by [id number]: Sandor Carrasquillo on 06/02/19 3:[address] Patient Name: TROY HAYWOOD Encounter No: [id number] : 1955 Primary Insurance: MED[place]ID [place] Anticipated DC Date: 06-02-2019 Planned Disposition: Nursing Facility [facility] Cert External Planned Provider: [facility], [facility] MEDICAID BED DCP follow-up note: CM FAXED REFERRAL UPDATE TO [facility] AT [phone]. CM WAITING ADMISSION DETERMINATION FROM [facility] FOR [facility]TA [facility] CARE. Sandor Carrasquillo CASE MANAGEMENT Appended by Sandor Carrasquillo on 06/02/2019 16:50 MANAGER LPN: CM RECEIVED CALL FROM LUIS OF [facility], , THEY RECEIVED THE UPDATE BY FAX AND WILL CONTACT FAMILY REGARDING FINANCIALS. LUIS REPORTS THEY ARE STILL WAITING ON NURSING TO ACCEPT FOR [facility] C[facility] AND WILL ALSO NEED FINANCIAL CLEARANCE TO ENTER THE FACILITY. CM WAITING ADMISSION DETERMINATION FROM [facility] FOR [facility] C[facility]. [place] CONTACTING FAMILY TO ASSIST WITH FINANCIAL INFORMATION FOR [facility] MEDICAID APPLICATION. Sandor Carrasquillo CASE MANAGEMENT DCP- Discharge Planning Updated by [id number]: Sandor Carrasquillo on 06/01/19 4:[address] Patient Name: TROY HAYWOOD Encounter No: [id number] : 1955 Primary Insurance: [place]ID [place] Anticipated DC Date: 06-02-2019 Planned Disposition: Nursing Facility [facility] Cert External Planned Provider: [facility], GROUP HOME [facility] MEDICAID BED DCP follow-up note: CM MET WITH PT AND DAUGHTER [place], WHO HAS MADE IT FROM [place]. UPDATE PROVIDED. CM CALLED [facility], DALE INFORMED CM THAT REFERRAL FROM AND [facility] WAS RECEIVED, STAFF IN MEETING TODAY AND THEY WILL FINISH ADMISSION REVIEW TOMORROW, 06-02-19. CM NOTIFIED PT AND DAUGHTER IN ROOM. CM WAITING ADMISSION DET[facility]MINATION [facility]. Sandor Carrasquillo CASE MANAGEMENT DCP- Discharge Planning Updated by [id number]: Sandor Carrasquillo on 05/31/19 3:[address] Patient Name: TROY HAYWOOD Encounter No: [id number] : 1955 Primary Insurance: [place]ID [place] Anticipated DC Date: 06-01-2019 Planned Disposition: Nursing Facility [facility] Cert External Planned Provider: [facility] MEDICAID BED DCP follow-up note: AFTER SEVERAL VISITS WITH PT IN ROOM, PHONE CALLS WITH DAUGHTERS, [employer] [facility] AND [facility], PT DECIDED TO CONSENT TO 30 DAYS OF GROUP HOME CARE AT [facility] AFTER PT'S DAUGTHERS, WITH AIDE OF [facility], LOCATED [place] WHO WILL CONSIDER PT FOR CARE. PT SIGNED CHOICE. CM FAXED REFERRAL INFORMATION TO [facility] AT [phone]. CM WAITING ADMISSION DETERMINATION FROM [facility] FOR GROUP HOME CARE. Sandor Carrasquillo CASE MANAGEMENT DCP- Discharge Planning Updated by [id number]: Sandor Carrasquillo on 05/28/19 3:[address] Patient Name: TROY HAYWOOD Encounter No: [id number] : 1955 Primary Insurance: [place]ID [place] Anticipated DC Date: 06-02-2019 Planned Disposition: Home with Home Health External Planned Provider: [facility] DCP follow-up note: CM RECEIVED CALL FROM PT'S DAUGHTER, CHEPE, WHO VERIFIED THAT SHE WILL COME NEXT WEEK TO STAY WITH PT FOR TWO OR THREE WEEKS TO CARE FOR PT AT HOME. CHEPE WILL DISCUSS WITH HER MOTHER THAT SHE WILL HAVE TO BE ABLE TO STAND AND TRANSFER FOR CHEPE TO CARE FOR HER. CM REVIEWED THERAPY NOTES TO PRESENT. 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 PT HAS BEDSIDE COMMODE AND WHEELCHAIR AT HOME. CHEPE REPORTS NEED OF [facility]. CHEPE WILL DISCUSS WITH PT AND TRY TO MOTIVATE HER TO MEET THERAPY GOALS PRIOR TO ARRIVAL ON NEXT FRIDAY OR FRIDAY. PT'S DAUGHTER PLANS TO TAKE PT HOME NEXT FRIDAY OR FRIDAY, THEY WILL NEED [facility], DENIES FURTHER NEEDS. CM TO FOLLOW AND ASSIST NEEDED. Sandor Carrasquillo, CASE MANAGEMENT DCP- Discharge Planning Updated by [id number]: Sandor Carrasquillo on 05/28/19 2:[address] Patient Name: TROY HAYWOOD Encounter No: [id number] : 1955 Primary Insurance: [place]ID [place] Anticipated DC Date: Planned Disposition: Nursing Facility [facility] Cert External Planned Provider: TO BE DETERMINED DCP follow-up note: CM SPOKE TO [facility], SHE INFORMED CM THAT UPDATES HAVE BEEN RECEIVED, PT IS NOT MAKING ENOUGH PROGRESS WITH THERAPY THAT THEY DO NOT BELIEVE THAT PT WILL BE ABLE TO ACHIEVE THERAPY GOALS IN THE REMAINING 10 DAYS OF ACUTE DAYS THAT PT HAS REMAINING. CM NOTIFIED PT AND PROVIDED PT WITH NURSING FACILITY LISTING OF ALL AVAILABLE FACILITIES WITHIN [address] OF [place]. PT WILL SPEAK TO HER DAUGHTER AND NOTIFY CM OF HER CHOICES. CM CALLED HOU[facility]ON SALGADO, , TWICE; AUTOMATED MESSAGE INFORMED CM THAT THE NUMBER WAS RESTRICTED OR CURRENTLY UNAVAILABLE. CM WAITING PT AND FAMILY TO PROVIDE NURSING FACILITY CHOICES FOR GROUP HOME CARE. Sandor Carrasquillo, CASE MANAGEMENT Appended by Sandor Carrasquillo on 05/28/2019 12:07 CDT: CM SPOKE TO PT IN ROOM, NOTIFIED PT THAT CM TRIED AND COULD NOT REACH DAUGHTER HOUSTON VIA PHONE. PT REPORTS SHE SPOKE TO HOUSTON WHO TOLD HER THAT [facility] WILL NOT TAKE HER DUE TO WEIGHT; PT'S DAUGHTER TOLD PT THAT [facility] PROBAB[facility] WILL NOT TAKE HER. PT REPORTS THERE IS ONE IN [place] THAT MIGHT CONSIDER HER. CM OFFERED CHOICE FORM FOR SIGNATURE SO THAT CM COULD SEND REFERRALS AND BEGIN CALLING TO FIND PLACEMENT. PT REFUSED AND STATES SHE HAS A DAUGHTER, CHEPE, WHO IS A REGISTERED NURSE, THAT MAY BE COMING TO TAKE CARE OF PT AT HOME. PT'S DAUGHTER HOUSTON IS CALLING DAUGHTER CHEPE TO DISCUSS THE OPTION. PT STATES SHE WILL LET CM KNOW THE OUTCOME AND IF SHE WANTS CM TO EXPLORE SKILLED NURSING CARE FOR HER. CM WAITING PT AND FAMILY TO PROVIDE NURSING FACILITY CHOICES AND FOR PT TO SIGN CONSENT FOR SKILLED NURSING PLACEMENT. PT IS NOW HOPEFUL THAT HER DAUGHTER WHO IS A REGISTERED NURSE WILL COME AND STAY WITH PT AND TAKE CARE OF HER AT HOME. SANDOR CARRASQUILLO, CASE MANAGEMENT Appended by Sandor Carrasquillo on 05/28/2019 14:27 CDT: CM RECEIVED MESSAGE THAT PT WANTS TO SEE CM. CM MET WITH PT IN ROOM WHO INFORMED CM THAT SHE HIS NOT GOING TO A SKILLED NURSING, THAT HER DAUGHTER, CHEPE, WHO IS A NURSE, WILL BE HERE NEXT FRIDAY TO TAKE HER HOME AND WILL TAKE CARE OF PT AT HOME. PT ASKED FOR [facility] RESUMPTION. CM DISCUSSED POSSIBLE NEED OF DEBORAH LIFT AND ASKED ABOUT ADDITIONAL EQUIPMENT. PT THINKS BY NEXT WEEK, SHE WILL BE ABLE TO TRANSFER WITHOUT AIDE OF LIFT DEVICE. CM NOTIFIED DR. FREEDMAN WHO INFORMED CM THAT HE WILL ORDER BLOOD GAS ON FRIDAY TO DETERMINE RESPIRATORY DISCHARGE NEEDS AT THAT TIME. PT HAS SIGNED RIGHT OF CHOICE FOR [facility] ALREADY. PT REPORTS HER DAUGHTER, WHO IS A REGISTERED NURSE, WILL BE HERE FRIDAY OF NEXT WEEK TO TAKE CARE OF PT AT HOME. PT PLANS TO DISCHARGE HOME WITH FAMILY AND [facility]. CM TO FOLLOW AND ASSIST NEEDED. SANDOR CARRASQUILLO, CASE MANAGEMENT DCP- Discharge Planning Updated by [id number]: Sandor Carrasquillo on 05/28/19 7:[address] Patient Name: TROY HAYWOOD Encounter No: [id number] : 1955 Primary Insurance: MEDICAID [facility] [place] Date: Planned Disposition: Inpatient Rehab External Planned Provider: [facility] DCP follow-up note: CM FAXED REFERRAL UPDATE TO [facility] AT [phone]. CM WAITING ADMISSION DETERMINATION FROM [facility] INPATIENT REH[facility] IN [place]. Sandor Carrasquillo CASE MANAGEMENT DCP- Discharge Planning Updated by [id number]: Sandor Carrasquillo on 05/27/19 2:[address] Patient Name: TROY HAYWOOD Encounter No: [id number] : 1955 Primary Insurance: [place]ICAID [place] Anticipated DC Date: Planned Disposition: Inpatient Rehab External Planned Provider: [facility] DCP follow-up note: CM FAXED REFERRAL UPDATE TO [facility] AT [phone]. CM WAITING ADMISSION DETERMINATION FROM [facility] IN[facility]IENT RE[facility] IN [place]. Sandor Carrasquillo, CASE MANAGEMENT Appended by Sandor Carrasquillo on 05/27/2019 14:41 CDT: CM CALLED [facility], , LEFT MESSAGE ASKING FOR UPDATE ON REFERRAL AND TO KNOW IF THEY ARE STILL CONSIDERING PT FOR REHAB. CM WAITING ADMISSION DETERMINATION FROM [facility] INPATIENT RE[facility] IN [place]. Sandor Carrasquillo, CASE MANAGEMENT DCP- Discharge Planning Updated by [id number]: Jesica Cartagena on 05/26/19 4:[address] Patient requested Trapeze bar to allow her to sit up in hospital bed. CM spoke Dr. Lawson and obtained approval for Trapeze bar. CM notified Radha in materials management of request for Trapeze bar. CM completed and gave Radha the order form for the Trapeze bar. Trapeze bar will be delivered. CM notified patient's CM, Christiano Carrasquillo, on status of Trapeze bar. DCP- Discharge Planning Updated by [id number]: Sandor Carrasquillo on 05/26/19 3:[address] Patient Name: TROY HAYWOOD Encounter No: [id number] : 1955 Primary Insurance: [place]ICAID [place] Anticipated DC Date: Planned Disposition: Inpatient Rehab External Planned Provider: [facility] DCP follow-up note: CM SPOKE TO PT'S DAUGHTER VIA PHONE, HOUSTON SALGADO, . CM OBTAINED PERMISSION FROM PT TO DISCUSS CARE, TREATMENT AND DISCHARGE PLANNING WITH HOUSTON. HOUSTON INFORMED CM THAT PT WAS IN REHAB AT [facility] LAST YEAR AND THEY WANT REFERRED TO [facility] AGAIN. CM DISCUSSED PT'S VERY LOW LEVEL OF PHYSICAL CONDITIONING. PT'S DAUGHTER FEELS THAT PT CAN PARTICIPATE WITH THERAPY WITH GOAL TO RETURN HOME PREVIOUS WITH ABILITY TO TRANSFER TO ELECTRIC SCOOTER AND HOME HEALTH FOR CONTINUED HOME SERVICES. HOUSTON VERIFIED THAT PT HAS NO ADULTS ABLE TO LIVE WITH AND ASSIST PT AT HOME AT THIS TIME. HOUSTON ASKED ABOUT [facility] REHAB SERVICES THAT MAY TAKE PT AT NO COSTS DUE TO INCOME. CM INFORMED HOUSTON THAT CM WAS NOT FAMILIAR WITH ANY OF THESE PROGRAMS. HOUSTON WOULD LIKE TO HAVE PT EVALUATED FOR REHAB AT [facility] PRIOR TO ANY CONSIDERATION OF SKILLED NURSING PLACEMENT PT WILL NOT GET THERAPY THERE. CM SPOKE TO PT WHO IS IN AGREEMENT WITH PLAN. CM CALLED [facility], , NOTIFIED OF REHAB REQUEST; PT HAS ONLY 24 ACUTE DAYS THAT STARTED IN JANUARY, IT DEPENDS ON HOW MANY HAVE BEEN ALREADY USED, PT'S CONDITION AND NEEDS THAT WOULD HAVE TO BE MET IN THE REMAINING DAYS THAT PT HAS TO USE FOR REHAB . CM FAXED REFERRALINFORMATION TO [facility] WITH CURRENT MAR AT [phone]. CM WAITING ADMISSION DETERMINATION FROM [facility] IN[facility]IENT RE[facility] IN [place]. Sandor Carrasquillo, CASE MANAGEMENT Appended by Sandor Carrasquillo on 05/26/2019 15:24 CDT: CM MET WITH PT, GRANDDAUGHTER, DAUGHTER HOUSTON VIA PHONE WITH CM CUPOLA CHARGER, UNIT NURSE [place] EQUIPMENT OPERATOR, REPIRATORY THERAPIST AND CUP[employer] CHARGER OF THERAPY SERVICES REGARDING DISCHARGE PLANNING. CONCERNS OF PT'S PLAN TO GO HOME IN CURRENT CONDITION DISCUSSED. PT AND DAUGHTER HAVE ALREADY ASKED FOR REFERRAL TO [facility] REHAB, CM HAS SENT IT AND WAITING DETERMINATION. PLAN "B" WAS AGREED TO BE NURSING FACILITY IF NOT ACCEPTED TO [facility] AND THAT CM WOULD ATTEMPT TO FIND ONE THAT MAY DONATE REHAB SERVICES. PT'S DAUGHTER IS RESEARCHING [employer] FROM [facility] FOR REHAB SERVICES. CM WAITING ADMISSION DETERMINATION FROM [facility] RE[facility] IN [place]. Sandor Carrasquillo, CASE MANAGEMENT DCP- Discharge Planning Updated by [id number]: Sandor Carrasquillo on 05/25/19 2:[address] Patient Name: TROY HAYWOOD Encounter No: [id number] : 1955 Primary Insurance: [place]ID [place] Anticipated DC Date: Planned Disposition: Home HEALTH External Planned Provider: [facility], VISITING NURSES [facility] DC follow-up note: CM MET WITH PT IN ROOM TO DISCUSS DISCHARGE NEEDS AND PLANNING. CM DISCUSSED AVAILABILITY OF HOME HEALTH, REHAB SERVICES AND MEDICAL EQUIPMENT. PT REFUSES [facility] FACILITY PLACEMENT. PT STATES PLAN TO RETURN HOME. 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 PT WAS ABLE TO AMBULATE SMALL DISTANCES AND TRANSFER SELF FROM BED TO ELECTRIC WHEELCHAIR AT HOME. PT THINKS SHE IS GOING TO BE ABLE TO TRANSFER SELF TO GO BACK HOME. PT WANTS HOME HEALTH RESUMED TO GO HOME. CM EXPRESSED CONCERN OF PT'S CURRENT LEVEL OF FUNCTIONING AND RETURNING HOME. PT DENIES HAVING FRIENDS OR FAMILY TO ASSIST WITH HER CARE AT HOME BUT IS NOT GOING TO A SKILLED NURSING. PT THINKS SHE WILL NEED AN AMBULANCE FOR TRANSPORT HOME HER ELECTRIC WHEELCHAIR IS THERE. CM EXPLAINED TO PT THAT SHE WILL NEED TO DEMONSTRATE WITH THERAPY THE ABILITY TO TRANSFER AND SIT IN CHAIR FOR DISCHARGE. PT STATED UNDRESTANDING. CHOICE FOR [facility] VISITING NURSES HOME HEALTH SIGNED. 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 PT REFUSED NURSING FACILITY PLACEMENT. PT WILL NEED TO DEMONSTRATE ABILITY TO TRANSFER AND SIT IN CHAIR FOR DISCHARGE SHE HAS ELECTRIC WHEELCHAIR AT HOME. CM TO ARRANGE HOME HEALTH RESUMPTION WITH [facility] VISITING NURSES AGENCY IN [place] FOR DISCHARGE HOME. CM TO CONTINUE TO FOLLOW AND ASSIST NEEDED. Sandor Carrasquillo, CASE MANAGEMENT DCP- Discharge Planning Updated by [id number]: Aleisha Monroe on 05/19/19 7:[address] Patient Name: TROY HAYWOOD Admission Status: ER Accout number: [id number] Admission Date: 05-14-2019 : 1955 Admission Diagnosis: Attending: FABIO PINEDA Current LOS: 5 Anticipated DC Date: Planned Disposition: Home or Self Care Primary Insurance: [place]ICAID [place] Discharge Planning Comments: CM met with patient and daughter to complete initial dc planning assessment. Patient recently extubated earlier today. CM educated patient on the CM role and verbal consent given by patient to complete assessment. Patient lives at home with her two young grand-daughters where she is independent with her care. At discharge patient plans to return home and feels this is a safe discharge. CM discussed availability of home health, rehab services, and medical equipment. Patient has Home 02 and HH with unknown providers. CM will f/u with patient @ later date to see if she is able to give providers. Patient denied known discharge needs at this time. CM will continue to follow and will assist as needed with dc plans/needs. Registration Representative: Aleisha Monroe DCPIA - Discharge Planning Initial Assessment Updated by NAYLA: Sandor Carrasquillo on 05/28/19 9:36 am * How many steps to enter\\exit or inside your home? * PCP uncertain ? * [facility] * Preadmission Environment Home with Family * ADLs Independent * Other Equipment HOME 02, WALKER, SCOOTER, BSC, SC * List name and contact numbers for known caregivers / representatives who currently or will assist patient after discharge: CHEPE SUN - DAUGHTER- [phone] HOUSTON SALGADO, DTR - [phone] * Verbal permission to speak to the caregivers and representatives has been obtained from the patient. Yes * Community resources currently utilized Home Health * Please name any agencies selected above. [facility] * Additional services required to return to the preadmission environment? No * Can the patient safely return to the preadmission environment? Yes * Has this patient been hospitalized within the prior 30 days at any hospital? No External Providers External Provider: [facility] Next Contact Date: 06/18/2019 Service Request Date: Service Type: Resolution: Reviewer: Comments: Coverage Notice Reviewer: [email or web address] Carrasquillo Notice Issued Date-Time: 06/18/2019 14:16 Notice Type: Patient Choice Letter Notice Delivered To: Patient Relationship to Patient: Small Products Ii Assembler Name: Delivery Method: HAND - Hand Delivered Marry Days: Prior Verbal Notification: Recipient Understood Notice: Yes Recipient Signature: Yes Med Rec Note Co-signed by Attending: Coverage Notice Comment: [facility] Reviewer: [email or web address] Josef Carrasquillo Notice Issued Date-Time: 06/17/2019 13:55 Notice Type: Patient Choice Letter Notice Delivered To: Patient Relationship to Patient: Small Products Ii Assembler Name: Delivery Method: HAND - Hand Delivered Marry Days: Prior Verbal Notification: Recipient Understood Notice: Yes Recipient Signature: Yes Med Rec Note Co-signed by Attending: Coverage Notice Comment: ANY ACCEPTING [facility] FACILITY Reviewer: [id number] Carrasquillo Notice Issued Date-Time: 06/10/2019 16:25 Notice Type: Patient Choice Letter Notice Delivered To: Patient Relationship to Patient: Small Products Ii Assembler Name: Delivery Method: HAND - Hand Delivered Marry Days: Prior Verbal Notification: Recipient Understood Notice: Yes Recipient Signature: Yes Med Rec Note Co-signed by Attending: Coverage Notice Comment: [facility] [employer] Reviewer: [id number] Carrasquillo Notice Issued Date-Time: 06/09/2019 9:55 Notice Type: Patient Choice Letter Notice Delivered To: Patient Relationship to Patient: Small Products Ii Assembler Name: Delivery Method: HAND - Hand Delivered Marry Days: Prior Verbal Notification: Recipient Understood Notice: Yes Recipient Signature: Yes Med Rec Note Co-signed by Attending: Coverage Notice Comment: [facility] OR ANY ACCEPTING [facility] FACLITY Reviewer: [id number] Carrasquillo Notice Issued Date-Time: 05/31/2019 14:50 Notice Type: Patient Choice Letter Notice Delivered To: Patient Relationship to Patient: Small Products Ii Assembler Name: Delivery Method: HAND - Hand Delivered Marry Days: Prior Verbal Notification: Recipient Understood Notice: Yes Recipient Signature: Yes Med Rec Note Co-signed by Attending: Coverage Notice Comment: [facility] Reviewer: [id number] Carrasquillo Notice Issued Date-Time: 05/25/2019 14:05 Notice Type: Patient Choice Letter Notice Delivered To: Patient Relationship to Patient: Small Products Ii Assembler Name: Delivery Method: HAND - Hand Delivered Marry Days: Prior Verbal Notification: Recipient Understood Notice: Yes Recipient Signature: Yes Med Rec Note Co-signed by Attending: Coverage Notice Comment: [facility]- VISITING NURSES [facility] ([facility]) Last DP export: 06/18/19 2:09 Patient Name: TROY HAYWOOD Page [id number] at 1519 All edits/amendments must be made on the electronic document DICTATION DATE: 06/18/191518 MANAGER COST: MISHEL 06/18/199 RPT#: [id number] DC DATE: STATUS: ADM IN [facility] [address] [place] [address] END OF REPORT
--- NOTE | 2019-06-18 15:55 | MORECARE ---
CASE MANAGEMENT DISCHARGE SUMMARY PATIENT: TROY HAYWOOD UNIT: [id number] ADM DATE: 05/14/19 AGE: 64 : 57 SEX: F ROOM/BED: D.2140 AUTHOR: DAYDAY,DOC PHYSICIAN: REFERRING PHYSICIAN: FABIO PINEDA MD DATE OF SERVICE: 06/18/19 Discharge Plan Patient Name: TROY HAYWOOD Facility: [facility]:[place] : 1955 Planned Disposition: Nursing Facility [facility] Cert Anticipated Discharge Date: 06/11/19 Discharge Date: Expected LOS: 28 Initial Reviewer: [id number] Initial Review Date: 05/19/2019 Generated: 06/18/19 4:55 pm Comments DCP- Discharge Planning Updated by [id number]: Sandor Butt on 06/18/19 2:[address] Patient Name: TROY HAYWOOD Encounter No: [id number] : 1955 Primary Insurance: MEDICAID [place] Anticipated DC Date: 06-11-2019 Planned Disposition: Nursing Facility [facility] External Planned Provider: FIRST ACCEPTING FACILITY, TACTICAL AIR DEFENSE CONTROLLER CARE MEDICAID BED DCP follow-up note: CM RECEIVED CALL FROM [facility], , SPOKE TO [place] WHO INFORMED CM THEY ARE CONSIDERING PT FOR TREY THERAPY WITH THE PRISON CARE PLACEMENT, REQUESTED FINANDICAL INFORMATION. CM FAXED FINANCIAL INFORMATION TO [facility] AT [phone]. [facility], . MET WITH PT AND ASSISTED WITH APPLICATION FOR "[facility]" MEDICARE AND IS STILL WORKING TO GET PT INTO ONE OF HER NURSING HOMES FOR THERAPY SERVICES. CM RECEIVED CALL FROM TROY OF [facility], SHE HAS A FACILITY IN [facility] THAT IS A NON PROFIT AND THEY ARE CONSIDERING PT FOR TREY REHAB SERVICES. PT HAS BEEN DECLINED BY [facility] ([facility]), [facility] ([facility]), [facility] (PRIVATE PAY), [facility], [facility]. - CM WAITING ADMISSION DETERMINATION FROM [facility] FOR PRISON CARE PLACEMENT IN ONE OF HER AFFILIATED NURSING HOMES. - CM WAITING ADMISSION [facility]MINATION [facility] FOR TACTICAL AIR DEFENSE CONTROLLER CARE. - CM WAITING DETERMINATION FROM [facility] FOR PRISON CARE PLACEMENT IN ONE OF HER AFFILIATED NURSING HOMES. Sandor Butt, CASE MANAGEMENT Appended by Sandor Butt on 06/18/2019 15:46 CABBAGE SALTER: CM RECEIVED ORDER FOR TRILOGY, SPOKE TO PT WHO REQUESTED [facility] HER OXGYEN IS FROM THEM, IF NOT, [facility] OR [facility]. CM CALLED [facility], SPOKE TO TESS WHO REFERRED CM TO [facility] IN [place]. CM CALLED [facility] IN [place], , SPOKE TO MAHESH WHO INFORMED CM THAT MEDICAID WOULD COVER TRILOGY, THEY CAN PROCESS THE ORDER. CM FAXED ORDER TO [facility] AT [phone]. - CM WAITING TRILOGY ORDER PROCESSING AND HOSPITAL DELIVERY OF TRILOGY BY [facility]. - CM WAITING ADMISSION DETERMINATION FROM [facility] FOR PRISON CARE PLACEMENT IN ONE OF HER AFFILIATED NURSING HOMES. - CM WAITING ADMISSION DETERMINATION [facility] FOR [facility]ISON C[facility]. - CM WAITING DETERMINATION FROM [facility] FOR PRISON CARE PLACEMENT IN ONE OF HER AFFILIATED NURSING HOMES. Sandor Butt, CASE MANAGEMENT DCP- Discharge Planning Updated by [id number]: Sandor Butt on 06/17/19 2:[address] Patient Name: TROY HAYWOOD Encounter No: [id number] : 1955 Primary Insurance: MEDICAID [facility] DC Date: 06-11-2019 Planned Disposition: Nursing Facility [facility] External Planned Provider: FIRST ACCEPTING FACILITY, TACTICAL AIR DEFENSE CONTROLLER CARE MEDICAID BED DCP follow-up note: CM RECEIVED PHONE MESSAGE FROM [facility]CH [facility], HE AND THE DOCTOR HAVE REVIEWED REFERRAL AND DECLINED PT. THEY DO NOT FEEL PT HAS MADE SIGNIFICANT PROGESS AND HAS NOT DEMONSTRATED ABILITY TO DO THREE HOURS OF PROGRESSIVE THERAPY. CM MET WITH PT IN ROOM, DISCUSSED DENIAL FOR INPATIENT REHAB BY [facility], DISCUSSED PRISON CARE SHELTER OPTIONS. PT DID SIGN CONSENT FOR ANY NURSING HOME FACILITY; PT ASKED CM TO KEEP PT CLOSE TO HOME POSSIBLE. CM EXPLAINED THAT A STATEWIDE SEARCH WILL BE DONE AND THAT ALL EFFORTS WILL BE MADE TO KEEP PT CLOSE TO [place] AND [place] POSSIBLE REQUESTED. CM CALLED PT'S DAUGHTER CHEPE AT PT'S REQUEST, NOTIFIED HER OF ABOVE INFORMATION. CHEPE AGREES THAT PT IS STILL NOT SAFE TO RETURN HOME IN HER CURRENT CONDITION AND AGREES WITH SHELTER PLACEMENT FOR RESTORATIVE CARE. CM CALLED [facility], , SPOKE TO CORINA WHO INFORMED CM THAT THEY DO BERIATRIC CARE. CM FAXED REFERRAL TO [facility] AT [phone]. CM FAXED REFERRAL UPDATE TO [facility], . CHAR INQUIRED ABOUT WHEN DID PT BEGIN RECEIVING SOCIAL SECURITY DISABILTY, PT STATES 15 YEARS AGO, INFORMATION PROVIDED TO CHAR. CHRISTOPHER FAXED REFERRAL UPDATE TO [facility], . PT HAS BEEN DECLINED BY [facility] ([facility] ([facility]), [facility] (PRIVATE PAY), [facility], [facility]. - CM WAITING ADMISSION DETERMINATION FROM [facility] FOR TACTICAL AIR DEFENSE CONTROLLER CARE PLACEMENT IN ONE OF HER AFFILIATED NURSING HOMES. - CM WAITING ADMISSION DETERMINATION FROM [facility] FOR TACTICAL AIR DEFENSE CONTROLLER CARE. - CM WAITING DETERMINATION FROM [facility] FOR PRISON CARE PLACEMENT IN ONE OF HER AFFILIATED [place] HOMES. Sandor Butt, CASE MANAGEMENT DCP- Discharge Planning Updated by [id number]: Sandor Butt on 06/17/19 8:[address] Patient Name: TROY HAYWOOD Encounter No: [id number] : 1955 Primary Insurance: MEDICAID [facility] DC Date: 06-11-2019 Planned Disposition: Nursing Facility [facility] External Planned Provider: FIRST ACCEPTING FACILITY DCP follow-up note: CM ATTEMPTED TO EMAIL Lotame FOR UPDATE ON APPLICATION AT [email or web address]. THE EMAIL FAILED. CM FAXED REQUEST FOR UPDATE TO [employer] AT [phone] AND [phone]. - CM WAITING ADMISSION DETERMINATION FROM [facility] FOR TACTICAL AIR DEFENSE CONTROLLER CARE PLACEMENT IN ONE OF HER AFFILIATED NURSING HOMES. - CM WAITING RETURN CALL FROM [facility] IN [place] REGARDING TREY REHAB. - CM WAITING DETERMINATION FROM [facility] FOR PRISON CARE PLACEMENT IN ONE OF HER AFFILIATED NURSING HOMES. Sandor Butt, CASE MANAGEMENT Sandor Butt DCP- Discharge Planning Updated by [id number]: Sandor Butt on 06/16/19 4:[address] Patient Name: TROY HAYWOOD Encounter No: [id number] : 1955 Primary Insurance: MEDICAID [place] Anticipated DC Date: 06-11-2019 Planned Disposition: Nursing Facility [facility] Cert External Planned Provider: FIRST ACCEPTING FACILITY DCP follow-up note: CM FAXED REFERRAL UPDATE TO [facility] FOR PRISON CARE PLACEMENT AT [phone]. CM FAXED REFERRAL UDPATE TO [facility] AT [phone]. CM FAXED UPDATE TO [facility] AT [phone] FOR TACTICAL AIR DEFENSE CONTROLLER CARE PLACEMENT. - CM WAITING ADMISSION DETERMINATION FROM [facility] FOR PRISON CARE PLACEMENT IN ONE OF HER AFFILIATED NURSING HOMES. - CM WAITING RETURN CALL FROM [facility] IN [place] REGARDING TREY REHAB. - CM WAITING DETERMINATION FROM [facility] FOR PRISON CARE PLACEMENT IN ONE OF HER AFFILIATED NURSING HOMES. ROSANNA Montaño DCP- Discharge Planning Updated by [id number]: Sandor Butt on 06/15/19 3:[address] Patient Name: TROY HAYWOOD Encounter No: [id number] : 1955 Primary Insurance: MED[place]ID [place] Anticipated DC Date: 06-11-2019 Planned Disposition: Nursing Facility [facility] Cert External Planned Provider: FIRST ACCEPTING DCP follow-up note: CM SENT MESSAGE TO TROY [facility], , OF [facility] ASKING FOR TACTICAL AIR DEFENSE CONTROLLER CARE PLACEMENT ASSISTANCE WITH REHAB IF POSSIBLE. CM FAXED REFERRAL TO TROY AT [phone]. CM CALLED [facility] IN [facility], , HE HAS NOT BEEN ABLE TO GET A DETERMINATION ON TREY AND CANNOT LOCATE THE PERSON IN CORPORATE WHO HAS PT'S TREY APPLICATION. HE WILL CONTINUE TO TRY TO LOCATE WHO IS PROCESSING THE APPLICATION HE HAS NOT SEEN IT OR HEARD ANY DETERMINATION. CM FAXED REFERRAL UDPATE TO [facility] AT [phone]. M FAXED UPDATE TO [facility] AT [phone]. CHAR INFORMED CM THAT SHE HAS NO BERIATRIC SHELTER BED YET BUT IS HOPEUL TO HAVE AN OPENING "SOON". ASKED BY PT'S DAUGHTER, CM CALLED AND SPOKE TO RUT, , OF [facility] AND REQUESTED PRIVATE PAY DOWN PAYMENT AND MONTHLY PAYMENT AMOUNTS FOR REHAB AT [facility]. CM FAXED REFERRAL TO [facility] AT [phone]. - CM WAITING ADMISSION DETERMINATION FROM [facility] FOR TACTICAL AIR DEFENSE CONTROLLER CARE PLACEMENT IN ONE OF HER AFFILIATED [facility]. - CM WAITING RETURN CALL FROM [facility] IN [place] REGARDING TREY REHAB. - CM WAITING DETERMINATION FROM [facility] FOR TACTICAL AIR DEFENSE CONTROLLER CARE PLACEMENT IN ONE OF HER AFFILIATED [facility]. Sandor Butt, CASE MANAGEMENT Appended by Sandor Butt on 06/15/2019 16:28 CABBAGE SALTER: CM FAXED [facility] TREY APPLICATION TO [facility]. CM SPOKE TO [facility] WHO EXPLAINED SHE IS CONTINUING TO LOOK FOR SHELTER PLACEMENT; THE OBSTACLE IS THE COSTS OF RENTING BIPAP AND OTHER BERIATRIC EQUIPMENT. CM SPOKE TO RUT OF [facility], THEY WILL NOT CONSIDER PATIENT FOR REHAB ON PRIVATE PAY BASIS AND WOULD DENY PATIENT REGARDLESS DUE TO HER "ENTIRE SITUATION". CM NOTIFIED PT AND DAUGHTER IN ROOM OF PROGRESS AND LACK THEREOF. CM ASKED TO SEND REFERRALS TO OTHER NURSING FACILITIES, PT REFUSED STATING SHE WANTS TO WAIT FOR DEFINITE ANSWER FROM [facility] FOR TREY REHAB SERVICES. - CM WAITING ADMISSION DETERMINATION FROM [facility] FOR TACTICAL AIR DEFENSE CONTROLLER CARE PLACEMENT IN ONE OF HER AFFILIATED [facility]. - CM WAITING RETURN CALL FROM [facility] IN [place] REGARDING TREY REHAB. - CM WAITING DETERMINATION FROM [facility] FOR TACTICAL AIR DEFENSE CONTROLLER CARE PLACEMENT IN ONE OF HER AFFILIATED [facility]. Sandor Butt, CASE MANAGEMENT DCP- Discharge Planning Updated by [id number]: Sandor Butt on 06/11/19 3:[address] Patient Name: TROY HAYWOOD Encounter No: [id number] : 1955 Primary Insurance: MEDICAID [place] Anticipated DC Date: 06-11-2019 Planned Disposition: Nursing Facility [facility] Cert External Planned Provider: : DCP follow-up note: CM RECEIVED MESSAGE FROM TROY OF [facility], THEY WILL NOT ACCEPT PT. CM FAXED REFERRAL UDPATE TO [facility] AT [phone]. CM FAXED UPDATE TO [facility] AT [phone]. CHAR INFORMED CM THAT SHE ANTICIPATES A BERIATRIC SHELTER BED OPENING "SOON". CM NOTIFIED PT AND DAUGHTER OF PROGRESS / LACK THEREOF IN ROOM. - CM WAITING ADMISSION DETERMINATION FROM [facility] FOR TACTICAL AIR DEFENSE CONTROLLER CARE PLACEMENT IN ONE OF HER AFFILIATED [facility]. - CM WAITING RETURN CALL FROM [facility] IN [place] REGARDING TREY REHAB. Sandor Butt, CASE MANAGEMENT DCP- Discharge Planning Updated by [id number]: Sandor Butt on 06/10/19 3:[address] Patient Name: TROY HAYWOOD Encounter No: [id number] : 1955 Primary Insurance: MED[place]ID [place] Anticipated DC Date: 06-11-2019 Planned Disposition: Nursing Facility [facility] Cert External Planned Provider: FIRST ACCEPTING FACILITY DCP follow-up note: - CM RECEIVED CALL FROM [facility], THEY HAVE NOT AVAILABILITY FOR TREY REHAB BED. CM RECEIVED CALL FROM MITCH OF [facility] IN [facility], THEY HAVE NOT RECEIVED TREY APPLICATION AND HAVE NO CURRENT BEDS BUT WOULD CONSIDER PT. CM RETURNED CALL TO MITCH AT [facility], , INFORMED THAT TREY APPLICATION HAD BEEN FAXED TO [facility], TELEPHONE CONTACT [phone]. EHTAL ASKED FOR REFERRAL TO BE SENT AND HE WILL SCREEN FOR ADMISSION. CM FAXED REFERRAL TO [facility] AT [phone]. CM NOTIFIED PT AND DAUGHTER OF PROGRESS IN ROOM. PT AND DAUGHTER ASKED FOR CM TO SEND REFERRAL TO [facility] IN [place]. CHOICE SIGNED. CM FAXED REFERRAL TO [facility] AT [phone]. - CM WAITING ADMISSION DETERMINATION FROM [facility] FOR TACTICAL AIR DEFENSE CONTROLLER CARE PLACEMENT IN ONE OF HER AFFILIATED [facility]. - CM WAITING RETURN CALL FROM [facility] IN [place] REGARDING TREY REHAB. - CM WAITING ADMISSION DETERMINATION FROM [facility]. Sandor Butt, CASE MANAGEMENT DCP- Discharge Planning Updated by [id number]: Sandor Butt on 06/09/19 3:[address] Patient Name: TROY HAYWOOD Encounter No: [id number] : 1955 Primary Insurance: MEDICAID [place] Anticipated DC Date: 06-10-2019 Planned Disposition: Nursing Facility [facility] External Planned Provider: FIRST ACCEPTING FACILITY DCP follow-up note: CM SPOKE TO PT AND DAUGHTER, CHEPE, THEY WILL LET CM SEEK SHELTER PLACEMENT FOR THEM TO CONSIDER BUT STILL DO NOT WANT PRISON CARE IF THEY CAN OBTAIN REHAB THROUGH [facility]. DAUGHTER ADVISED SHE HAS CONFIRMED RECEIPT OF THE APPLICATION FAXED TO [facility] AND IS IN PROCESS OF REVIEW. DAUGHTER ASKED CM TO CHECK INTO REHAB'S THAT MAY HAVE [facility] AFFILIATION. CM CALLED [facility], , REQUESTED ASSISTANCE IN TACTICAL AIR DEFENSE CONTROLLER CARE PLACEMENT WITH INTENT TO RETURN HOME. CHRA STATES THAT SHE MAY HAVE HOME'S WILL ACCEPT BARIATRIC PATIENT AND WILL ATTEMPT PLACEMENT. CHAR WILL MEET WITH PT LATER TODAY. CM FAXED REFERRAL TO [facility] AT [phone]. CM SPOKE TO TROY [facility] OF [facility], TROY INFORMED CM THAT SHE HAS NO HOMES IN HER GROUP THAT MAY ASSIST WITH PLACEMENT. CM CALLED [facility] OF [place], WAS ADVISED BY RUT THAT THEY WILL NOT CONSIDER FOR TREY CARE, THEY ARE NOT AFFILIATED WITH [facility]. CM CALLED [facility], , SPOKE TO CHELO WHO INFORMED CM THAT THEY ARE NOT AFFILIATED WITH [facility] BUT WILL CONSIDER PT FOR TREY REHAB. CM FAXED REFERRAL TO [facility] AT [phone]. CM CALLED [facility] IN [place], , SPOKE TO DHEERAJ WHO REPORTS THEY HAVE NO OPEN REHAB BEDS AND HAVE NO PROJECTED DISCHARGES SOON. THEY DO NOT HAVE WEIGHT LIMITS. DHEERAJ DID NOT WANT REFERRAL FAXED, SHE WILL REPORT TO BREN WHO WILL CHECK WITH THE [facility] PRO[facility] REGARDING APPLICATION STATUS AND CALL CM TOMORROW, 06-10-19. CM NOTIFIED PT IN ROOM OF PROGRESS. PT STATES SHE MAY BE ABLE TO TRANSFER SELF AND GO HOME BEFORE CM FINDS REHAB FOR HER. - CM WAITING ADMISSION DETERMINATION FROM [facility] FOR PRISON CARE PLACEMENT IN ONE OF HER AFFILIATED NURSING HOMES. - CM WAITING ADMISSION DETERMINATION FROM [facility] FOR TREY REHAB BED. - CM WAITING RETURN CALL FROM [facility] IN [place] REGARDING TREY REHAB. Sandor Butt CASE MANAGEMENT DCP- Discharge Planning Updated by [id number]: Sandor Butt on 06/04/19 4:[address] Patient Name: TROY HAYWOOD Encounter No: [id number] : 1955 Primary Insurance: MEDICAID [facility] DC Date: 06-02-2019 Planned Disposition: Nursing Facility [facility] External Planned Provider: TO BE DETERMINED DCP follow-up note: CM SPOKE TO PT AND DAUGHTER CHEPE, IN ROOM. PT IS AND FOR PAST 10 YEARS, BUT NOT LEGALLY. THEY CANNOT QUALIFY FOR MEDICAID FOR PRISON CARE DUE TO NOT HAVING SPOUSE FINANICAL INFORMATION. PT AND DAUGHTER BOTH STATE THAT THEY DO NOT WANT TO PUT PT INTO TACTICAL AIR DEFENSE CONTROLLER SHELTER CARE WHERE SHE WILL JUST LAY IN THE BED. THEY DO NOT WANT FURTHER SHELTER REFERRALS FAXED OUT. CM DISCUSSED THAT PT IS STABLE FOR DISCHARGE MEDICALLY. PT'S DAUGHTER REPORTS PT IS NOT HAVING BOWEL MOVEMENTS AND THAT THE FECES COMING OUT IS COMING AROUND AN IMPACTION AND NO ONE IS ADDRESSING THIS. CM NOTIFIED TOBY THOMAS WHO PROVIDED ORDERS FOR MEDICATION TO TREAT CONDITION. BEDSIDE NURSE NOTIFIED. PT'S DAUGHTER PROVIDED CM WITH 77 PAGES AND ASKED CM TO FAX TO [facility] FOR FINANCIAL ASSISTANCE REGARDING REHAB SERVICES FOR PT. CM FAXED TO [facility] FINANCIAL ASSISTANCE PROGRAM AT [phone]. PT'S DAUGHTER ADVISED THAT IF APPROVED, PT WILL HAVE TO GO TO A [facility]ENTER FOR REHAB. PT WAS DECLINED PRISON CARE PLACEMENT AT [facility]; PT AND FAMILY DECLINE TO HAVE FURTHER REFERRALS SENT OUT. FAMILY IS TRYING TO SECURE FINANCIAL ASSISTANCE FOR REHAB SERVICES THROUGH [facility]. CM TO CONTINUE TO FOLLOW AND ASSIST. Sandor Butt CASE MANAGEMENT DCP- Discharge Planning Updated by [id number]: Sandor Butt on 06/04/19 11:[address] Patient Name: TROY HAYWOOD Encounter No: [id number] : 1955 Primary Insurance: MEDICAID [place] Anticipated DC Date: 06-02-2019 Planned Disposition: Nursing Facility [facility] Cert External Planned Provider: WAITING FAMILY DECISION DCP follow-up note: CM RECEIVED CALL FROM ANNIE OF [facility] WHO ADVISED CM THAT PT HAS BEEN FIANCIALLY DENIED FOR PLACEMENT. CM SPOKE TO PT IN ROOM WHO ADVISED THAT SHE UNDERSTOOD THEY WERE JUST GOING TO LEAVE HER LAYING IN BED FOR A MONTH AND NOT GIVE HER ANY REHAB SERVICES. CM EXPLAINED THAT MEDICAID DOES NOT PAY FOR REHAB SERVICES, ONLY PRISON CARE AND PT WOULD RECEIVE WHAT THEY CALL "RESTORATIVE CARE" FROM STAFF AT ANY SHELTER, NOT THERAPY SERVICES. PT STATES SHE IS NOW ABLE TO STAND UP WITH THERAPY HERE. CM EXPLAINED THAT PT IS GETTING 8 TO 16 MINUTES OF THERAPY PER DAY AND THAT ALTHOUGH CM WAS HAPPY WITH PROGRESSION, PT IS MEDICALLY STABLE TO LEAVE THE HOSPITAL AND THAT SHE WOULD RECEIVE MORE THERAPY AT HOME WITH HOME HEALTH THAN IN THIS ACUTE HOSPITAL SETTING. PT STATES SHE IS NOT SURE WHAT HAPPENED, THAT CHEPE IS TAKING CARE OF THIS FOR HER AND THAT CHEPE WILL BE TO THE HOSPITAL IN A LITTLE WHILE TO SPEAK TO CM; PT BELIVES THAT CHEPE IS AGAIN WORKING ON TRYING TO GET TREY REHAB CARE THROUGH THE [facility]. PT HAS BEEN FINANCIALLY DECLINED FOR PRISON CARE PLACEMENT BY [facility]. PT DEFERRING PLANNING TO HER DAUGHTER, CHEPE. CM WAITING FAMILY TO ARRIVE TO DISCUSS FURTHER DISCHARGE PLANNING. Sandor Butt CASE MANAGEMENT DCP- Discharge Planning Updated by [id number]: Sandor Butt on 06/03/19 7:[address] Patient Name: TROY HAYWOOD Encounter No: [id number] : 1955 Primary Insurance: MEDICAID [place] Anticipated DC Date: 06-02-2019 Planned Disposition: Nursing Facility [facility] Cert External Planned Provider: [facility], PRISON CARE MEDICAID BED DISCHARGE PLANNING NOTE: CM FAXED REFERRAL UPDATE TO [facility] AND [facility] AT [phone]. CM WAITING ADMISSION DETERMINATION FROM [facility]. WAITING FAMILY TO PROVIDE FINANCIAL INFORMATION FOR TACTICAL AIR DEFENSE CONTROLLER CARE MEDICAID APPLICATION TO FACILITY. Sandor Butt CASE MANAGEMENT DCP- Discharge Planning Updated by [id number]: Sandor Butt on 06/02/19 3:[address] Patient Name: TROY HAYWOOD Encounter No: [id number] : 1955 Primary Insurance: MEDICAID [place] Anticipated DC Date: 06-02-2019 Planned Disposition: Nursing Facility [facility] Cert External Planned Provider: [facility] MEDICAID BED DCP follow-up note: CM FAXED REFERRAL UPDATE TO [facility] AT [phone]. CM WAITING ADMISSION DETERMINATION FROM [facility] FOR PRISON CARE. Sandor Butt, CASE MANAGEMENT Appended by Sandor Butt on 06/02/2019 16:50 CABBAGE SALTER: CM RECEIVED CALL FROM LUIS OF [facility], , THEY RECEIVED THE UPDATE BY FAX AND WILL CONTACT FAMILY REGARDING FINANCIALS. LUIS REPORTS THEY ARE STILL WAITING ON NURSING TO ACCEPT FOR PRISON CARE AND WILL ALSO NEED FINANCIAL CLEARANCE TO ENTER THE FACILITY. CM WAITING ADMISSION DETERMINATION FROM [facility] FOR TACTICAL AIR DEFENSE CONTROLLER CARE. [facility] CONTACTING FAMILY TO ASSIST WITH FINANCIAL INFORMATION FOR TACTICAL AIR DEFENSE CONTROLLER CARE MEDICAID APPLICATION. Sandor Butt CASE MANAGEMENT DCP- Discharge Planning Updated by [id number]: Sandor Butt on 06/01/19 4:[address] Patient Name: TROY HAYWOOD Encounter No: [id number] : 1955 Primary Insurance: MEDICAID [place] Anticipated DC Date: 06-02-2019 Planned Disposition: Nursing Facility [facility] Cert External Planned Provider: [facility] TACTICAL AIR DEFENSE CONTROLLER CARE MEDICAID BED DCP follow-up note: CM MET WITH PT AND DAUGHTER [place], WHO HAS MADE IT FROM [place]. UPDATE PROVIDED. CM CALLED [facility] ELMA INFORMED CM THAT REFERRAL FROM AND [facility] WAS RECEIVED, STAFF IN MEETING TODAY AND THEY WILL FINISH ADMISSION REVIEW TOMORROW, 06-02-19. CM NOTIFIED PT AND DAUGHTER IN ROOM. CM WAITING ADMISSION DETERMINATION FROM [facility] FOR PRISON CARE. Sandor Butt CASE MANAGEMENT DCP- Discharge Planning Updated by [id number]: Sandor Butt on 05/31/19 3:[address] Patient Name: TROY HAYWOOD Encounter No: [id number] : 1955 Primary Insurance: [place]ID [place] Anticipated DC Date: 06-01-2019 Planned Disposition: Nursing Facility [facility] Cert External Planned Provider: [facility], PRISON CARE MEDICAID BED DCP follow-up note: AFTER SEVERAL VISITS WITH PT IN ROOM, PHONE CALLS WITH DAUGHTERS, [facility] AND [facility], PT DECIDED TO CONSENT TO 30 DAYS OF TACTICAL AIR DEFENSE CONTROLLER CARE AT [facility] AFTER PT'S DAUGTHERS, WITH AIDE OF [facility], LOCATED [facility] WHO WILL CONSIDER PT FOR CARE. PT SIGNED CHOICE. CM FAXED REFERRAL INFORMATION TO [facility] AT [phone]. CM WAITING ADMISSION DETERMINATION FROM [facility] AND [facility] FOR PRISON CARE. Sandor Butt, CASE MANAGEMENT DCP- Discharge Planning Updated by [id number]: Sandor Butt on 05/28/19 3:[address] Patient Name: TROY HAYWOOD Encounter No: [id number] : 1955 Primary Insurance: MED[place]ID [place] Anticipated DC Date: 06-02-2019 Planned Disposition: Home with Home Health External Planned Provider: [facility] DCP follow-up note: CM RECEIVED CALL FROM PT'S DAUGHTER, CHEPE, WHO VERIFIED THAT SHE WILL COME NEXT WEEK TO STAY WITH PT FOR TWO OR THREE WEEKS TO CARE FOR PT AT HOME. CHEPE WILL DISCUSS WITH HER MOTHER THAT SHE WILL HAVE TO BE ABLE TO STAND AND TRANSFER FOR CHEPE TO CARE FOR HER. CM REVIEWED THERAPY NOTES TO PRESENT. 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 PT HAS BEDSIDE COMMODE AND WHEELCHAIR AT HOME. CHEPE REPORTS NEED OF [facility]. CHEPE WILL DISCUSS WITH PT AND TRY TO MOTIVATE HER TO MEET THERAPY GOALS PRIOR TO ARRIVAL ON NEXT FRIDAY OR FRIDAY. PT'S DAUGHTER PLANS TO TAKE PT HOME NEXT FRIDAY OR FRIDAY, THEY WILL NEED [facility], DENIES FURTHER NEEDS. CM TO FOLLOW AND ASSIST NEEDED. Sandor Butt CASE MANAGEMENT DCP- Discharge Planning Updated by [id number]: Sandor Butt on 05/28/19 2:[address] Patient Name: TROY HAYWOOD Encounter No: [id number] : 1955 Primary Insurance: MEDICAID [place] Anticipated DC Date: Planned Disposition: Nursing Facility YUN Cert External Planned Provider: TO BE DETERMINED DCP follow-up note: CM SPOKE TO [facility], SHE INFORMED CM THAT UPDATES HAVE BEEN RECEIVED, PT IS NOT MAKING ENOUGH PROGRESS WITH THERAPY THAT THEY DO NOT BELIEVE THAT PT WILL BE ABLE TO ACHIEVE THERAPY GOALS IN THE REMAINING 10 DAYS OF ACUTE DAYS THAT PT HAS REMAINING. CM NOTIFIED PT AND PROVIDED PT WITH NURSING FACILITY LISTING OF ALL AVAILABLE FACILITIES WITHIN [address] OF [place]. PT WILL SPEAK TO HER DAUGHTER AND NOTIFY CM OF HER CHOICES. CM CALLED [facility] SALGADO, , TWICE; AUTOMATED MESSAGE INFORMED CM THAT THE NUMBER WAS RESTRICTED OR CURRENTLY UNAVAILABLE. CM WAITING PT AND FAMILY TO PROVIDE NURSING FACILITY CHOICES FOR TACTICAL AIR DEFENSE CONTROLLER CARE. Sandor Butt, CASE MANAGEMENT Appended by Sandor Butt on 05/28/2019 12:07 CDT: CM SPOKE TO PT IN ROOM, NOTIFIED PT THAT CM TRIED AND COULD NOT REACH DAUGHTER HOUSTON VIA PHONE. PT REPORTS SHE SPOKE TO [facility] WHO TOLD HER THAT [facility] WILL NOT TAKE HER DUE TO WEIGHT; PT'S DAUGHTER TOLD PT THAT [facility], [facility] PROB[facility] WILL NOT TAKE HER. PT REPORTS THERE IS ONE IN [place] THAT MIGHT CONSIDER HER. CM OFFERED CHOICE FORM FOR SIGNATURE SO THAT CM COULD SEND REFERRALS AND BEGIN CALLING TO FIND PLACEMENT. PT REFUSED AND STATES SHE HAS A DAUGHTER, CHEPE, WHO IS A REGISTERED NURSE, THAT MAY BE COMING TO TAKE CARE OF PT AT HOME. PT'S DAUGHTER HOUSTON IS CALLING DAUGHTER CHEPE TO DISCUSS THE OPTION. PT STATES SHE WILL LET CM KNOW THE OUTCOME AND IF SHE WANTS CM TO EXPLORE SHELTER CARE FOR HER. CM WAITING PT AND FAMILY TO PROVIDE NURSING FACILITY CHOICES AND FOR PT TO SIGN CONSENT FOR SHELTER PLACEMENT. PT IS NOW HOPEFUL THAT HER DAUGHTER WHO IS A REGISTERED NURSE WILL COME AND STAY WITH PT AND TAKE CARE OF HER AT HOME. SANDOR BUTT, CASE MANAGEMENT Appended by Sandor Butt on 05/28/2019 14:27 CDT: CM RECEIVED MESSAGE THAT PT WANTS TO SEE CM. CM MET WITH PT IN ROOM WHO INFORMED CM THAT SHE HIS NOT GOING TO A SHELTER, THAT HER DAUGHTER, CHEPE, WHO IS A NURSE, WILL BE HERE NEXT FRIDAY TO TAKE HER HOME AND WILL TAKE CARE OF PT AT HOME. PT ASKED FOR [facility]. CM DISCUSSED POSSIBLE NEED OF DEBORAH LIFT AND ASKED ABOUT ADDITIONAL EQUIPMENT. PT THINKS BY NEXT WEEK, SHE WILL BE ABLE TO TRANSFER WITHOUT AIDE OF LIFT DEVICE. CM NOTIFIED DR. FREEDMAN WHO INFORMED CM THAT HE WILL ORDER BLOOD GAS ON FRIDAY TO DETERMINE RESPIRATORY DISCHARGE NEEDS AT THAT TIME. PT HAS SIGNED RIGHT OF CHOICE FOR [facility] ALREADY. PT REPORTS HER DAUGHTER, WHO IS A REGISTERED NURSE, WILL BE HERE FRIDAY OF NEXT WEEK TO TAKE CARE OF PT AT HOME. PT PLANS TO DISCHARGE HOME WITH FAMILY AND [facility]. CM TO FOLLOW AND ASSIST NEEDED. ROSANNA MONTAÑO DCP- Discharge Planning Updated by [id number]: Sandor Butt on 05/28/19 7:[address] Patient Name: TROY HAYWOOD Encounter No: [id number] : 1955 Primary Insurance: MEDICAID [place] Anticipated DC Date: Planned Disposition: Inpatient Rehab External Planned Provider: [facility] DCP follow-up note: CM FAXED REFERRAL UPDATE TO [facility] AT [phone]. CM WAITING ADMISSION DETERMINATION FROM [facility] IN [place]. ROSANNA Montaño DCP- Discharge Planning Updated by [id number]: Sandor Butt on 05/27/19 2:[address] Patient Name: TROY HAYWOOD Encounter No: [id number] : 1955 Primary Insurance: MEDICAID [place] Anticipated DC Date: Planned Disposition: Inpatient Rehab External Planned Provider: [facility] DCP follow-up note: CM FAXED REFERRAL UPDATE TO [facility] AT [phone]. CM WAITING ADMISSION DETERMINATION FROM [facility] IN [place]. ROSNANA Montaño MANAGEMENT Appended by Sandor Butt on 05/27/2019 14:41 CDT: CM CALLED [facility], , LEFT MESSAGE ASKING FOR UPDATE ON REFERRAL AND TO KNOW IF THEY ARE STILL CONSIDERING PT FOR REHAB. CM WAITING ADMISSION DETERMINATION FROM [facility] IN [place]. Sandor [place], CASE MANAGEMENT DCP- Discharge Planning Updated by [id number]: Jesica Cartagena on 05/26/19 4:[address] Patient requested Trapeze bar to allow her to sit up in hospital bed. CM spoke Dr. Lawson and obtained approval for Trapeze bar. CM notified Radha in materials management of request for Trapeze bar. CM completed and gave Radha the order form for the Trapeze bar. Trapeze bar will be delivered. CM notified patient's CM, Christiano Daquan, on status of Trapeze bar. DCP- Discharge Planning Updated by [id number]: Sandor Buttswell on 05/26/19 3:[address] Patient Name: TROY HAYWOOD Encounter No: [id number] : 1955 Primary Insurance: MEDICAID [facility] Date: Planned Disposition: Inpatient Rehab External Planned Provider: [facility] DCP follow-up note: CHRISTOPHER SPOKE TO PT'S DAUGHTER VIA PHONE, HOUSTON GERMAINBLOOD, . CHRISTOPHER OBTAINED PERMISSION FROM PT TO DISCUSS CARE, TREATMENT AND DISCHARGE PLANNING WITH HOUSTON. HOUSTON INFORMED CHRISTOPHER THAT PT WAS IN REHAB AT [facility] LAST YEAR AND THEY WANT REFERRED TO [facility] AGAIN. CHRISTOPHER DISCUSSED PT'S VERY LOW LEVEL OF PHYSICAL CONDITIONING. PT'S DAUGHTER FEELS THAT PT CAN PARTICIPATE WITH THERAPY WITH GOAL TO RETURN HOME PREVIOUS WITH ABILITY TO TRANSFER TO ELECTRIC SCOOTER AND HOME HEALTH FOR CONTINUED HOME SERVICES. HOUSTON VERIFIED THAT PT HAS NO ADULTS ABLE TO LIVE WITH AND ASSIST PT AT HOME AT THIS TIME. HOUSTON ASKED ABOUT [facility] THAT MAY TAKE PT AT NO COSTS DUE TO INCOME. CHRISTOPHER INFORMED HOUSTON THAT CHRISTOPHER WAS NOT FAMILIAR WITH ANY OF THESE PROGRAMS. HOUSTON WOULD LIKE TO HAVE PT EVALUATED FOR REHAB AT [facility] PRIOR TO ANY CONSIDERATION OF SHELTER PLACEMENT PT WILL NOT GET THERAPY THERE. CHRISTOPHER SPOKE TO PT WHO IS IN AGREEMENT WITH PLAN. CHRISTOPHER CALLED [facility], , NOTIFIED OF REHAB REQUEST; PT HAS ONLY 24 ACUTE DAYS THAT STARTED IN JANUARY, IT DEPENDS ON HOW MANY HAVE BEEN ALREADY USED, PT'S CONDITION AND NEEDS THAT WOULD HAVE TO BE MET IN THE REMAINING DAYS THAT PT HAS TO USE FOR REHAB . CHRISTOPHER FAXED REFERRALINFORMATION TO [facility] WITH CURRENT MAR AT [phone]. CM WAITING ADMISSION DETERMINATION FROM [facility] IN [place]. Sandor Butt, CASE MANAGEMENT Appended by Sandor Butt on 05/26/2019 15:24 CDT: CM MET WITH PT, GRANDDAUGHTER, DAUGHTER HOUSTON VIA PHONE WITH CM ESCALATOR SERVICE MECHANIC, UNIT NURSE PUBLIC POLICY PROFESSOR, REPIRATORY THERAPIST AND ESCALATOR SERVICE MECHANIC OF THERAPY SERVICES REGARDING DISCHARGE PLANNING. CONCERNS OF PT'S PLAN TO GO HOME IN CURRENT CONDITION DISCUSSED. PT AND DAUGHTER HAVE ALREADY ASKED FOR REFERRAL TO [facility], CM HAS SENT IT AND WAITING DETERMINATION. PLAN "B" WAS AGREED TO BE NURSING FACILITY IF NOT ACCEPTED TO [facility] AND THAT CM WOULD ATTEMPT TO FIND ONE THAT MAY DONATE REHAB SERVICES. PT'S DAUGHTER IS RESEARCHING [employer] FUNDING FROM [employer] FOR REHAB SERVICES. CM WAITING ADMISSION DETERMINATION FROM [facility] IN [place]. Sandor Butt, CASE MANAGEMENT DCP- Discharge Planning Updated by [id number]: Sandor Butt on 05/25/19 2:[address] Patient Name: TROY AHYWOOD Encounter No: [id number] : 1955 Primary Insurance: MEDICAID [facility] Date: Planned Disposition: Home HEALTH External Planned Provider: [facility] ON [employer], VISITING NURSES [facility] follow-up note: CM MET WITH PT IN ROOM TO DISCUSS DISCHARGE NEEDS AND PLANNING. CM DISCUSSED AVAILABILITY OF HOME HEALTH, REHAB SERVICES AND MEDICAL EQUIPMENT. PT REFUSES NURSING HOME FACILITY PLACEMENT. PT STATES PLAN TO RETURN HOME. 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 PT WAS ABLE TO AMBULATE SMALL DISTANCES AND TRANSFER SELF FROM BED TO ELECTRIC WHEELCHAIR AT HOME. PT THINKS SHE IS GOING TO BE ABLE TO TRANSFER SELF TO GO BACK HOME. PT WANTS HOME HEALTH RESUMED TO GO HOME. CM EXPRESSED CONCERN OF PT'S CURRENT LEVEL OF FUNCTIONING AND RETURNING HOME. PT DENIES HAVING FRIENDS OR FAMILY TO ASSIST WITH HER CARE AT HOME BUT IS NOT GOING TO A SHELTER. PT THINKS SHE WILL NEED AN AMBULANCE FOR TRANSPORT HOME HER ELECTRIC WHEELCHAIR IS THERE. CM EXPLAINED TO PT THAT SHE WILL NEED TO DEMONSTRATE WITH THERAPY THE ABILITY TO TRANSFER AND SIT IN CHAIR FOR DISCHARGE. PT STATED UNDRESTANDING. CHOICE FOR [facility] ON AGING VISITING NURSES HOME HEALTH SIGNED. 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 PT REFUSED NURSING FACILITY PLACEMENT. PT WILL NEED TO DEMONSTRATE ABILITY TO TRANSFER AND SIT IN CHAIR FOR DISCHARGE SHE HAS ELECTRIC WHEELCHAIR AT HOME. CM TO ARRANGE HOME HEALTH RESUMPTION WITH [facility] ON AGING VISITING NURSES AGENCY IN [place] FOR DISCHARGE HOME. CM TO CONTINUE TO FOLLOW AND ASSIST NEEDED. Sandor Butt, CASE MANAGEMENT DCP- Discharge Planning Updated by [id number]: Aleisha Monroe on 05/19/19 7:[address] Patient Name: TROY HAYWOOD Admission Status: ER Accout number: [id number] Admission Date: 05-14-2019 : 1955 Admission Diagnosis: Attending: FABIO PINEDA Current LOS: 5 Anticipated DC Date: Planned Disposition: Home or Self Care Primary Insurance: MEDICAID [place] Discharge Planning Comments: CM met with patient and daughter to complete initial dc planning assessment. Patient recently extubated earlier today. CM educated patient on the CM role and verbal consent given by patient to complete assessment. Patient lives at home with her two young grand-daughters where she is independent with her care. At discharge patient plans to return home and feels this is a safe discharge. CM discussed availability of home health, rehab services, and medical equipment. Patient has Home 02 and HH with unknown providers. CM will f/u with patient @ later date to see if she is able to give providers. Patient denied known discharge needs at this time. CM will continue to follow and will assist as needed with dc plans/needs. In Store Marketing Associate: Aleisha Monroe DCPIA - Discharge Planning Initial Assessment Updated by [id number]: Sandor Butt on 05/28/19 9:36 am * How many steps to enter\\exit or inside your home? * PCP uncertain ? * Pharmacy [place] * Preadmission Environment Home with Family * ADLs Independent * Other Equipment HOME 02, WALKER, SCOOTER, BSC, SC * List name and contact numbers for known caregivers / representatives who currently or will assist patient after discharge: CHEPE SUN - DAUGHTER- [phone] HOUSTON SALGADO, DTR - [phone] * Verbal permission to speak to the caregivers and representatives has been obtained from the patient. Yes * Community resources currently utilized Home Health * Please name any agencies selected above. [facility] * Additional services required to return to the preadmission environment? No * Can the patient safely return to the preadmission environment? Yes * Has this patient been hospitalized within the prior 30 days at any hospital? No Coverage Notice Reviewer: NAYLA Butt Notice Issued Date-Time: 06/18/2019 14:16 Notice Type: Patient Choice Letter Notice Delivered To: Patient Relationship to Patient: [employer] Certified Network Professional Name: Delivery Method: HAND - Hand Delivered Marry Days: Prior Verbal Notification: Recipient Understood Notice: Yes Recipient Signature: Yes Med Rec Note Co-signed by Attending: Coverage Notice Comment: [facility] PATIENT Reviewer: NAYLA Butt Notice Issued Date-Time: 06/17/2019 13:55 Notice Type: Patient Choice Letter Notice Delivered To: Patient Relationship to Patient: [employer] Certified Network Professional Name: Delivery Method: HAND - Hand Delivered Marry Days: Prior Verbal Notification: Recipient Understood Notice: Yes Recipient Signature: Yes Med Rec Note Co-signed by Attending: Coverage Notice Comment: ANY ACCEPTING NURSING HOME FACILITY Reviewer: NAYLA Butt Notice Issued Date-Time: 06/10/2019 16:25 Notice Type: Patient Choice Letter Notice Delivered To: Patient Relationship to Patient: [employer] Certified Network Professional Name: Delivery Method: HAND - Hand Delivered Marry Days: Prior Verbal Notification: Recipient Understood Notice: Yes Recipient Signature: Yes Med Rec Note Co-signed by Attending: Coverage Notice Comment: [employer] Reviewer: NAYLA Butt Notice Issued Date-Time: 06/09/2019 9:55 Notice Type: Patient Choice Letter Notice Delivered To: Patient Relationship to Patient: [employer] Certified Network Professional Name: Delivery Method: HAND - Hand Delivered Marry Days: Prior Verbal Notification: Recipient Understood Notice: Yes Recipient Signature: Yes Med Rec Note Co-signed by Attending: Coverage Notice Comment: [facility] OR ANY ACCEPTING NURSING HOME FACLITY Reviewer: NAYLA Butt Notice Issued Date-Time: 05/31/2019 14:50 Notice Type: Patient Choice Letter Notice Delivered To: Patient Relationship to Patient: [employer] Certified Network Professional Name: Delivery Method: HAND - Hand Delivered Marry Days: Prior Verbal Notification: Recipient Understood Notice: Yes Recipient Signature: Yes Med Rec Note Co-signed by Attending: Coverage Notice Comment: [facility] Reviewer: NAYLA Butt Notice Issued Date-Time: 05/25/2019 14:05 Notice Type: Patient Choice Letter Notice Delivered To: Patient Relationship to Patient: [employer] Certified Network Professional Name: Delivery Method: HAND - Hand Delivered Marry Days: Prior Verbal Notification: Recipient Understood Notice: Yes Recipient Signature: Yes Med Rec Note Co-signed by Attending: Coverage Notice Comment: [facility]- VISITING N[facility]SES [facility]) Last DP export: 06/18/19 2:19 Patient Name: TROY HAYWOOD Page [id number] at 1555 All edits/amendments must be made on the electronic document DICTATION DATE: 06/18/191554 CREDIT CHARGE AUTHORIZER: MISHEL 06/18/19 1555 RPT#: [id number] DC DATE: STATUS: ADM IN [facility] [address] [place] [address] END OF REPORT
--- NOTE | 2019-06-18 18:24 | NUR ---
I HAVE REVIEWED THIS PATIENT AND I CONCUR WITH THE SHIFT ASSESSMENT COMPLETED BY THE SUPERVISOR HOME RESTORATION SERVICE TODAY THIS SHIFT
--- NOTE | 2019-06-18 19:10 | NUR ---
BEDSIDE REPORT RECEIVED FROM DAY SHIFT, PT CARE ASSUMED. WROTE NAME ON BOARD. PT LYING IN BED WITH EYES CLOSED, RR EVEN AND NONLABORED, NO S/S OF DISTRESS, AROUSES EASILY TO VOICE, ORIENTED X4. DENIES PAIN OR ANY OTHER NEEDS AT THIS TIME. BED IN LOWEST POSITION, SR X2, CALL LIGHT WITHIN REACH. WILL CONTINUE TO MONITOR.
--- NOTE | 2019-06-19 04:04 | NUR ---
I have reviewed this patient and I concur with the Shift Assessment completed by the Licensed Practical Nurse today this shift.
[2019-06-19 04:30] VITALS: BP 109/56
[2019-06-19 06:01] LABS: BASOPHILS 0.4 % (0-2); EOSINOPHILS 12.8 % (0-7); HEMATOCRIT 32.6 % (36.0-48.0); HEMOGLOBIN 9.5 g/dL (12-16); IMMATURE GRANULOCYTES 0.2 % (0-5); LYMPHOCYTES 23.1 % (15-50); MCH 27.3 pg (26.0-34.0); MCHC 29.1 g/dL (31.0-37.0); MEAN PLATELET VOLUME 10.3 fL (7.4-10.4); MONOCYTES 12.4 % (2-11); NEUTROPHILS 51.1 % (40-80); PLATELET COUNT 227 10x3/uL (130-400); RBC 3.48 10x6/uL (4.00-5.40); RDW 18.2 % (11.5-14.5); WBC 4.9 10x3/uL (4.8-10.8)
[2019-06-19 06:04] LABS: MCV 93.7 fL (80.0-100.0)
[2019-06-19 06:15] LABS: ANION GAP 7.1 mmol/L (8-16); CALCIUM 8.6 mg/dL (8.5-10.1); CARBON DIOXIDE 34.7 mmol/L (21.0-32.0); CREATININE - SERUM 1.5 mg/dL (0.6-1.3); MAGNESIUM - SERUM 1.9 mg/dL (1.8-2.4); POTASSIUM - SERUM 3.8 mmol/L (3.5-5.1)
[2019-06-19 07:53] VITALS: BP 119/58
--- NOTE | 2019-06-19 10:00 | NUR ---
PT HAIR BRUSHED AND BRAIDED AND COMPLETE BED CHANGE DONE BY BEHAVIORAL SPECIALIST.
[2019-06-19 11:27] VITALS: BP 108/39
--- NOTE | 2019-06-19 13:16 | NUR ---
PT HAS HAD FOUR BM'S TODAY. THIS BM IS FOUL ODOR AND LIQUID CONSISTENCY. WILL CHECK FOR CDIFF PER PROTOCOL.
[2019-06-19 15:44] VITALS: BP 121/33
--- NOTE | 2019-06-19 18:02 | NUR ---
I have reviewed this patient and I concur with the Shift Assessment completed by the Licensed Practical Nurse today this shift.
--- NOTE | 2019-06-19 19:00 | NUR ---
EVEING ROUNDS COMPLETE. PT LAYING IN BED, NO SIGNS OF DISTRESS. PT IS AAOX4. PT DENIES ANY PAIN OR NEEDS AT THIS TIME. CL IN REACH, BED IN LOWEST POSITION.
[2019-06-19 20:00] VITALS: BP 103/37
--- NOTE | 2019-06-19 21:30 | NUR ---
PT BP PER CUSTOMER DEVELOPMENT REPRESENTATIVE 103/37. MANUAL BP TAKEN BY THIS NURSE OF 100/50 IN RIGHT FOREARM.
[2019-06-20] VITALS: BP 106/44
[2019-06-20 04:00] VITALS: BP 110/55
[2019-06-20 05:40] LABS: BASOPHILS 0.4 % (0-2); EOSINOPHILS 15.3 % (0-7); HEMATOCRIT 32.5 % (36.0-48.0); HEMOGLOBIN 9.4 g/dL (12-16); IMMATURE GRANULOCYTES 0.4 % (0-5); LYMPHOCYTES 22.5 % (15-50); MCH 27.2 pg (26.0-34.0); MCHC 28.9 g/dL (31.0-37.0); MCV 93.9 fL (80.0-100.0); MEAN PLATELET VOLUME 10.2 fL (7.4-10.4); MONOCYTES 15.1 % (2-11); NEUTROPHILS 46.3 % (40-80); PLATELET COUNT 228 10x3/uL (130-400); RBC 3.46 10x6/uL (4.00-5.40); RDW 18.1 % (11.5-14.5); WBC 5.1 10x3/uL (4.8-10.8)
[2019-06-20 05:56] LABS: ANION GAP 7.4 mmol/L (8-16); CALCIUM 8.6 mg/dL (8.5-10.1); CARBON DIOXIDE 35.2 mmol/L (21.0-32.0); CREATININE - SERUM 1.5 mg/dL (0.6-1.3); MAGNESIUM - SERUM 1.8 mg/dL (1.8-2.4); PHOSPHOROUS 4.2 mg/dL (2.5-4.9); POTASSIUM - SERUM 3.6 mmol/L (3.5-5.1)
--- NOTE | 2019-06-20 08:06 | NUR ---
PT AWAKE AND ORIENTED, WAS SLEEPING BUT WOKE EASILY TO LIGHT NOISE. NO CMPLAINTS OR CONCERNS THIS AM. NO FAMILY PRESENT AT BEDSIDE. STATES HER DIAHREAH SEEMS LESS THIS AM. ALL QUESTIONS ANSWERED TO THE BEST OF MY ABILITY. CL IN REACH, SRX2.
[2019-06-20 09:33] VITALS: BP 122/53
[2019-06-20 13:32] VITALS: BP 112/43
--- NOTE | 2019-06-20 15:41 | NUR ---
I have reviewed this patient and I concur with the Shift Assessment completed by the Licensed Practical Nurse today this shift.
[2019-06-20 17:32] VITALS: BP 124/50
[2019-06-20 20:00] VITALS: BP 110/52
--- NOTE | 2019-06-20 21:28 | NUR ---
HS MEDS GIVEN WITH FRESH ICE WATER. PT DENIES PAIN OR NEEDS, BED LOW, CL IN REACH.
[2019-06-21] VITALS: BP 106/54
--- NOTE | 2019-06-21 02:52 | NUR ---
I have reviewed this patient and I concur with the Shift Assessment completed by the Licensed Practical Nurse today this shift.
--- NOTE | 2019-06-21 03:44 | NUR ---
RESTING WITH EYES CLOSED, RESPERATIONS EVEN, NO S/S DISTRESS NOTED.
[2019-06-21 04:30] VITALS: BP 114/49
[2019-06-21 06:11] LABS: BASOPHILS 0.5 % (0-2); HEMATOCRIT 32.8 % (36.0-48.0); HEMOGLOBIN 9.6 g/dL (12-16); LYMPHOCYTES 24.6 % (15-50); MCH 27.5 pg (26.0-34.0); MCHC 29.3 g/dL (31.0-37.0); MEAN PLATELET VOLUME 10.9 fL (7.4-10.4); MONOCYTES 13.1 % (2-11); NEUTROPHILS 45.8 % (40-80); PLATELET COUNT 251 10x3/uL (130-400); RBC 3.49 10x6/uL (4.00-5.40); RDW 18.1 % (11.5-14.5); WBC 5.6 10x3/uL (4.8-10.8)
[2019-06-21 06:28] LABS: ANION GAP 7.3 mmol/L (8-16); CALCIUM 8.6 mg/dL (8.5-10.1); CARBON DIOXIDE 34.3 mmol/L (21.0-32.0); CREATININE - SERUM 1.4 mg/dL (0.6-1.3); MAGNESIUM - SERUM 1.8 mg/dL (1.8-2.4); PHOSPHOROUS 3.9 mg/dL (2.5-4.9); POTASSIUM - SERUM 3.6 mmol/L (3.5-5.1)
[2019-06-21 09:04] VITALS: BP 111/44
--- NOTE | 2019-06-21 11:22 | NUR ---
ALERT AND ORIENTED. 02 ON 3 L/M JOY FLOW. NO IV OR TELEMERTY. RESP REG AND NON LABORED/PT IS ON AN AIRBED.SHE HAS CELLULITIS ON HER LEFT SIDE. BALLARD CATH PATENT TO GRAVITY BAG. DENIES ANY NEEDS. WILL MONITOR
[2019-06-21 13:54] VITALS: BP 104/47
--- NOTE | 2019-06-21 14:34 | NUR ---
SUSANNE DESIR ANSWERED CALL LIGHT AND PATIENT TELLS HER, "I'M DURTY AND NEEDED TO BE CLEANED" COORDINATE MEASURING MACHINE TECHNICIAN WENT AND GOT WIPES TO GO CLEAN PATIENT. PATIENT STATES, "UNTIL THEY GET THE BLOOD OUT OF MY ARM YOU CAN'T CHANGE ME". SUSANNE TOLD HER THAT WHENEVER THEY VAMSHI THE BLOOD TO GET BACK SWEET GOODS MACHINE OPERATOR LIGHT SO SHE CAN BE CHANGED.
--- NOTE | 2019-06-21 15:44 | NUR ---
OT NOTE: PT ON BIPAP..RESPIRATORY REPORTED THAT PT ABOUT TO HAVE BLOOD GASES CHECKED. CM ALSO DISCUSSING POTENTIAL DC WITH PT. SAÚL ESCAMILLA, OTR/L
--- NOTE | 2019-06-21 16:05 | MORECARE ---
CASE MANAGEMENT DISCHARGE SUMMARY PATIENT: TROY HAYWOOD UNIT: [id number] ADM DATE: 05/14/19 AGE: 64 : 57 SEX: F ROOM/BED: D.2140 AUTHOR: DAYDAY,DOC PHYSICIAN: REFERRING PHYSICIAN: FABIO PINEDA MD DATE OF SERVICE: 06/21/19 Discharge Plan Patient Name: TROY HAYWOOD Facility: [facility]:[place] : 1955 Planned Disposition: Nursing Facility [facility] Cert Anticipated Discharge Date: 06/11/19 Discharge Date: Expected LOS: 28 Initial Reviewer: [id number] Initial Review Date: 05/19/2019 Generated: 06/21/19 5:04 pm DCP- Discharge Planning Updated by [id number]: Sandor Butt on 06/18/19 2:[address] Patient Name: TROY HAYWOOD Encounter No: [id number] : 1955 Primary Insurance: MEDICAID [place] Anticipated DC Date: 06-11-2019 Planned Disposition: Nursing Facility [facility] Cert External Planned Provider: FIRST ACCEPTING FACILITY, HELPDESK TECHNICIAN CARE MEDICAID BED DCP follow-up note: CM RECEIVED CALL FROM [facility], , SPOKE TO [place] WHO INFORMED CM THEY ARE CONSIDERING PT FOR TREY THERAPY WITH THE DETENTION CARE PLACEMENT, REQUESTED FINANDICAL INFORMATION. CM FAXED FINANCIAL INFORMATION TO [facility] AT [phone]. [facility], . MET WITH PT AND ASSISTED WITH APPLICATION FOR "[employer]" MEDICARE AND IS STILL WORKING TO GET PT INTO ONE OF HER NURSING HOMES FOR THERAPY SERVICES. CM RECEIVED CALL FROM TROY [facility], SHE HAS A FACILITY IN [facility] THAT IS A NON PROFIT AND THEY ARE CONSIDERING PT FOR TREY REHAB SERVICES. PT HAS BEEN DECLINED BY [facility] ([facility]), [facility]), [facility] INPATIENT REHAB (PRIVATE PAY), [facility] AND [facility]. - CM WAITING ADMISSION DETERMINATION FROM [facility] FOR HELPDESK TECHNICIAN CARE PLACEMENT IN ONE OF HER AFFILIATED NURSING HOMES. - CM WAITING ADMISSION DETERMINATION FROM [facility] FOR HELPDESK TECHNICIAN CARE. - CM WAITING DETERMINATION FROM [facility] [place] FOR DETENTION CARE PLACEMENT IN ONE OF HER AFFILIATED NURSING HOMES. Sandor Butt, CASE MANAGEMENT Appended by Sandor Butt on 06/18/2019 15:46 [employer]: CM RECEIVED ORDER FOR TRILOGY, SPOKE TO PT WHO REQUESTED [facility] HER OXGYEN IS FROM THEM, IF NOT, [facility] OR [facility]. CM CALLED [facility], SPOKE TO TESS WHO REFERRED CM TO [facility] IN [place]. CM CALLED [facility] IN [place], , SPOKE TO MAHESH WHO INFORMED CM THAT MEDICAID WOULD COVER TRILOGY, THEY CAN PROCESS THE ORDER. CM FAXED ORDER TO [facility] AT [phone]. - CM WAITING TRILOGY ORDER PROCESSING AND HOSPITAL DELIVERY OF TRILOGY BY [facility]. - CM WAITING ADMISSION DETERMINATION FROM [facility] FOR DETENTION CARE PLACEMENT IN ONE OF HER AFFILIATED NURSING HOMES. - CM WAITING ADMISSION DETERMINATION FROM [facility] FOR HELPDESK TECHNICIAN CARE. - CM WAITING DETERMINATION FROM [facility] [place] FOR DETENTION CARE PLACEMENT IN ONE OF HER AFFILIATED NURSING HOMES. Sandor Butt, CASE MANAGEMENT DCP- Discharge Planning Updated by [id number]: Sandor Butt on 06/17/19 2:[address] Patient Name: TROY HAYWOOD Encounter No: [id number] : 1955 Primary Insurance: MEDICAID [facility] DC Date: 06-11-2019 Planned Disposition: Nursing Facility [facility] External Planned Provider: FIRST ACCEPTING FACILITY, DETENTION CARE MEDICAID BED DCP follow-up note: CM RECEIVED PHONE MESSAGE FROM [facility], HE AND THE DOCTOR HAVE REVIEWED REFERRAL AND DECLINED PT. THEY DO NOT FEEL PT HAS MADE SIGNIFICANT PROGESS AND HAS NOT DEMONSTRATED ABILITY TO DO THREE HOURS OF PROGRESSIVE THERAPY. CM MET WITH PT IN ROOM, DISCUSSED DENIAL FOR INPATIENT REHAB BY [facility], DISCUSSED DETENTION CARE SHELTER OPTIONS. PT DID SIGN CONSENT FOR ANY USP FACILITY; PT ASKED CM TO KEEP PT CLOSE TO HOME POSSIBLE. CM EXPLAINED THAT A STATEWIDE SEARCH WILL BE DONE AND THAT ALL EFFORTS WILL BE MADE TO KEEP PT CLOSE TO [place] AND [place] POSSIBLE REQUESTED. CM CALLED PT'S DAUGHTER CHEPE AT PT'S REQUEST, NOTIFIED HER OF ABOVE INFORMATION. CHEPE AGREES THAT PT IS STILL NOT SAFE TO RETURN HOME IN HER CURRENT CONDITION AND AGREES WITH SHELTER PLACEMENT FOR RESTORATIVE CARE. CM CALLED [facility], , SPOKE TO CORINA WHO INFORMED CM THAT THEY DO BERIATRIC CARE. CM FAXED REFERRAL TO [facility] AT [phone]. CM FAXED REFERRAL UPDATE TO [facility], . CHAR INQUIRED ABOUT WHEN DID PT BEGIN RECEIVING SOCIAL SECURITY DISABILTY, PT STATES 15 YEARS AGO, INFORMATION PROVIDED TO CHAR. CHRISTOPHER FAXED REFERRAL UPDATE TO [facility], . PT HAS BEEN DECLINED BY [facility]), [facility] INPATIENT REH[facility] (PRIVATE PAY), [facility] AND [facility] RE[facility]. - CM WAITING ADMISSION DETERMINATION FROM [facility] FOR HELPDESK TECHNICIAN CARE PLACEMENT IN ONE OF HER AFFILIATED NURSING HOMES. - CM WAITING ADMISSION DETERMINATION FROM [facility] FOR DETENTION CARE. - CM WAITING DETERMINATION FROM [facility] [place] FOR DETENTION CARE PLACEMENT IN ONE OF HER AFFILIATED [facility] HOM[facility]. Sandor Butt, CASE MANAGEMENT DCP- Discharge Planning Updated by [id number]: Sandor Butt on 06/17/19 8:[address] Patient Name: TROY HAYWOOD Encounter No: [id number] : 1955 Primary Insurance: MEDICAID [facility] DC Date: 06-11-2019 Planned Disposition: Nursing Facility [facility] Cert External Planned Provider: FIRST ACCEPTING FACILITY DCP follow-up note: CM ATTEMPTED TO EMAIL [employer] FOR UPDATE ON APPLICATION AT [email or web address]. THE EMAIL FAILED. CM FAXED REQUEST FOR UPDATE TO [employer] AT [phone] AND [phone]. - CM WAITING ADMISSION DETERMINATION FROM [facility] FOR DETENTION CARE PLACEMENT IN ONE OF HER AFFILIATED NURSING HOMES. - CM WAITING RETURN CALL FROM [facility] IN [place] REGARDING TREY REHAB. - CM WAITING DETERMINATION FROM [facility] [place] FOR HELPDESK TECHNICIAN CARE PLACEMENT IN ONE OF HER AFFILIATED NURSING HOMES. Sandor Butt, CASE MANAGEMENT Sandor Butt DCP- Discharge Planning Updated by [id number]: Sandor Butt on 06/16/19 4:[address] Patient Name: TROY HAYWOOD Encounter No: [id number] : 1955 Primary Insurance: MEDICAID [place] Anticipated DC Date: 06-11-2019 Planned Disposition: Nursing Facility [facility] Cert External Planned Provider: FIRST ACCEPTING FACILITY DCP follow-up note: CM FAXED REFERRAL UPDATE TO [facility] [place] FOR HELPDESK TECHNICIAN CARE PLACEMENT AT [phone]. CM FAXED REFERRAL UDPATE TO [facility] AT [phone]. CM FAXED UPDATE TO [facility] AT [phone] FOR HELPDESK TECHNICIAN CARE PLACEMENT. - CM WAITING ADMISSION DETERMINATION FROM [facility] FOR DETENTION CARE PLACEMENT IN ONE OF HER AFFILIATED NURSING HOMES. - CM WAITING RETURN CALL FROM [facility] IN [place] REGARDING TREY REHAB. - CM WAITING DETERMINATION FROM [facility] [place] FOR HELPDESK TECHNICIAN CARE PLACEMENT IN ONE OF HER AFFILIATED NURSING HOMES. ROSANNA Montaño DCP- Discharge Planning Updated by [id number]: Sandor Butt on 06/15/19 3:[address] Patient Name: TROY HAYWOOD Encounter No: [id number] : 1955 Primary Insurance: MEDICAID [place] Anticipated DC Date: 06-11-2019 Planned Disposition: Nursing Facility [facility] Cert External Planned Provider: FIRST ACCEPTING DCP follow-up note: CHRISTOPHER SENT MESSAGE TO [facility], , OF [facility] ASKING FOR HELPDESK TECHNICIAN CARE PLACEMENT ASSISTANCE WITH REHAB IF POSSIBLE. CM FAXED REFERRAL TO TROY AT [phone]. CM CALLED [facility] IN [facility], , HE HAS NOT BEEN ABLE TO GET A DETERMINATION ON TREY AND CANNOT LOCATE THE PERSON IN CORPORATE WHO HAS PT'S TREY APPLICATION. HE WILL CONTINUE TO TRY TO LOCATE WHO IS PROCESSING THE APPLICATION HE HAS NOT SEEN IT OR HEARD ANY DETERMINATION. CHRISTOPHER FAXED REFERRAL UDPATE TO [facility] AT [phone]. M FAXED UPDATE TO [facility] AT [phone]. CHAR INFORMED CM THAT SHE HAS NO BERIATRIC SHELTER BED YET BUT IS HOPEUL TO HAVE AN OPENING "SOON". ASKED BY PT'S DAUGHTER, CM CALLED AND SPOKE TO RUT, , OF [facility] AND REQUESTED PRIVATE PAY DOWN PAYMENT AND MONTHLY PAYMENT AMOUNTS FOR REHAB AT [facility]. CM FAXED REFERRAL TO [facility] AT [phone]. - CM WAITING ADMISSION DETERMINATION FROM [facility] FOR HELPDESK TECHNICIAN CARE PLACEMENT IN ONE OF HER AFFILIATED [facility]. - CM WAITING RETURN CALL FROM [facility] IN [place] REGARDING TREY REHAB. - CM WAITING DETERMINATION FROM [facility] [place] FOR HELPDESK TECHNICIAN CARE PLACEMENT IN ONE OF HER AFFILIATED [facility]. Sandor Butt, CASE MANAGEMENT Appended by Sandor Butt on 06/15/2019 16:28 [employer]: CM FAXED [facility] TREY APPLICATION TO [facility]HAB IN [facility]. CM SPOKE TO [facility] [place] [facility] WHO EXPLAINED SHE IS CONTINUING TO LOOK FOR SHELTER PLACEMENT; THE OBSTACLE IS THE COSTS OF RENTING BIPAP AND OTHER BERIATRIC EQUIPMENT. CM SPOKE TO RUT OF [facility] INPATIENT REHAB, THEY WILL NOT CONSIDER PATIENT FOR REHAB ON PRIVATE PAY BASIS AND WOULD DENY PATIENT REGARDLESS DUE TO HER "ENTIRE SITUATION". CM NOTIFIED PT AND DAUGHTER IN ROOM OF PROGRESS AND LACK THEREOF. CM ASKED TO SEND REFERRALS TO OTHER NURSING FACILITIES, PT REFUSED STATING SHE WANTS TO WAIT FOR DEFINITE ANSWER FROM [facility] FOR TREY REHAB SERVICES. - CM WAITING ADMISSION DETERMINATION FROM [facility] FOR DETENTION CARE PLACEMENT IN ONE OF HER AFFILIATED [facility]. - CM WAITING RETURN CALL FROM [facility] IN [place] REGARDING TREY REHAB. - CM WAITING DETERMINATION FROM [facility] [place] FOR DETENTION CARE PLACEMENT IN ONE OF HER AFFILIATED [facility]. Sandor Butt, CASE MANAGEMENT DCP- Discharge Planning Updated by [id number]: Sandor Butt on 06/11/19 3:[address] Patient Name: TROY HAYWOOD Encounter No: [id number] : 1955 Primary Insurance: MEDICAID [facility] Date: 06-11-2019 Planned Disposition: Nursing Facility [facility] Cert External Planned Provider: : DCP follow-up note: CM RECEIVED MESSAGE FROM TROY OF [facility], THEY WILL NOT ACCEPT PT. CM FAXED REFERRAL UDPATE TO [facility] AT [phone]. CM FAXED UPDATE TO [facility] AT [phone]. CHAR INFORMED CM THAT SHE ANTICIPATES A BERIATRIC SHELTER BED OPENING "SOON". CM NOTIFIED PT AND DAUGHTER OF PROGRESS / LACK THEREOF IN ROOM. - CM WAITING ADMISSION DETERMINATION FROM [facility] FOR HELPDESK TECHNICIAN CARE PLACEMENT IN ONE OF HER AFFILIATED [facility]. - CM WAITING RETURN CALL FROM [facility] IN [place] REGARDING TREY REHAB. Sandor Butt, CASE MANAGEMENT DCP- Discharge Planning Updated by [id number]: Sandor uBtt on 06/10/19 3:[address] Patient Name: TROY HAYWOOD Encounter No: [id number] : 1955 Primary Insurance: MEDICAID [place] Anticipated DC Date: 06-11-2019 Planned Disposition: Nursing Facility [facility] Cert External Planned Provider: FIRST ACCEPTING FACILITY DCP follow-up note: - CM RECEIVED CALL FROM [facility], THEY HAVE NOT AVAILABILITY FOR TREY REHAB BED. CM RECEIVED CALL FROM MITCH OF [facility] IN [facility], THEY HAVE NOT RECEIVED TREY APPLICATION AND HAVE NO CURRENT BEDS BUT WOULD CONSIDER PT. CM RETURNED CALL TO MITCH AT [facility], , INFORMED THAT TREY APPLICATION HAD BEEN FAXED TO [facility] IN [facility], TELEPHONE CONTACT [phone]. HETAL ASKED FOR REFERRAL TO BE SENT AND HE WILL SCREEN FOR ADMISSION. CM FAXED REFERRAL TO [facility] AT [phone]. CM NOTIFIED PT AND DAUGHTER OF PROGRESS IN ROOM. PT AND DAUGHTER ASKED FOR CM TO SEND REFERRAL TO [facility] AND REHAB IN [place]. CHOICE SIGNED. CM FAXED REFERRAL TO [facility]IA [facility] AT [phone]. - CM WAITING ADMISSION DETERMINATION FROM [facility] FOR DETENTION CARE PLACEMENT IN ONE OF HER AFFILIATED [facility]. - CM WAITING RETURN CALL FROM [facility] IN [place] REGARDING TREY REHAB. - CM WAITING ADMISSION DETERMINATION FROM [facility]. Sandor Butt, CASE MANAGEMENT DCP- Discharge Planning Updated by [id number]: Sandor Butt on 06/09/19 3:[address] Patient Name: TROY HAYWOOD Encounter No: [id number] : 1955 Primary Insurance: MEDICAID [place] Anticipated DC Date: 06-10-2019 Planned Disposition: Nursing Facility [facility] External Planned Provider: FIRST ACCEPTING FACILITY DCP follow-up note: CM SPOKE TO PT AND DAUGHTER, CHEPE, THEY WILL LET CM SEEK SHELTER PLACEMENT FOR THEM TO CONSIDER BUT STILL DO NOT WANT HELPDESK TECHNICIAN CARE IF THEY CAN OBTAIN REHAB THROUGH [facility]. DAUGHTER ADVISED SHE HAS CONFIRMED RECEIPT OF THE APPLICATION FAXED TO [facility] AND IS IN PROCESS OF REVIEW. DAUGHTER ASKED CM TO CHECK INTO REHAB'S THAT MAY HAVE [place] [facility]. CM CALLED [facility], , REQUESTED ASSISTANCE IN HELPDESK TECHNICIAN CARE PLACEMENT WITH INTENT TO RETURN HOME. CHAR STATES THAT SHE MAY HAVE HOME'S WILL ACCEPT BARIATRIC PATIENT AND WILL ATTEMPT PLACEMENT. CHAR WILL MEET WITH PT LATER TODAY. CM FAXED REFERRAL TO [facility] AT [phone]. CM SPOKE TO [facility]OY [facility] OF [facility], TROY INFORMED CM THAT SHE HAS NO HOMES IN HER GROUP THAT MAY ASSIST WITH PLACEMENT. CM CALLED [facility] INPATIENT OF [place], WAS ADVISED BY [facility]UT THAT THEY WILL NOT CONSIDER FOR TREY CARE, THEY ARE NOT AFFILIATED WITH [facility]. CM CALLED [facility], , SPOKE TO CHELO WHO INFORMED CM THAT THEY ARE NOT AFFILIATED WITH [facility] BUT WILL CONSIDER PT FOR TREY REHAB. CM FAXED REFERRAL TO [facility] AT [phone]. CM CALLED [facility] IN [place], , SPOKE TO DHEERAJ WHO REPORTS THEY HAVE NO OPEN REHAB BEDS AND HAVE NO PROJECTED DISCHARGES SOON. THEY DO NOT HAVE WEIGHT LIMITS. DHEERAJ DID NOT WANT REFERRAL FAXED, SHE WILL REPORT TO BREN WHO WILL CHECK WITH THE [facility] REGARDING APPLICATION STATUS AND CALL CM TOMORROW, 06-10-19. CM NOTIFIED PT IN ROOM OF PROGRESS. PT STATES SHE MAY BE ABLE TO TRANSFER SELF AND GO HOME BEFORE CM FINDS REHAB FOR HER. - CM WAITING ADMISSION DETERMINATION FROM [facility] FOR DETENTION CARE PLACEMENT IN ONE OF HER AFFILIATED NURSING HOMES. - CM WAITING ADMISSION DETERMINATION FROM [facility] FOR TREY REHAB BED. - CM WAITING RETURN CALL FROM [facility] IN [place] REGARDING TREY REHAB. ROSANNA Montaño MANAGEMENT DCP- Discharge Planning Updated by [id number]: Sandor Butt on 06/04/19 4:[address] Patient Name: TROY HAYWOOD Encounter No: [id number] : 1955 Primary Insurance: MEDICAID [facility] DC Date: 06-02-2019 Planned Disposition: Nursing Facility [facility] Cert External Planned Provider: TO BE DETERMINED DCP follow-up note: CM SPOKE TO PT AND DAUGHTER CHEPE, IN ROOM. PT IS AND FOR PAST 10 YEARS, BUT NOT LEGALLY. THEY CANNOT QUALIFY FOR MEDICAID FOR HELPDESK TECHNICIAN CARE DUE TO NOT HAVING SPOUSE FINANICAL INFORMATION. PT AND DAUGHTER BOTH STATE THAT THEY DO NOT WANT TO PUT PT INTO DETENTION SHELTER CARE WHERE SHE WILL JUST LAY IN THE BED. THEY DO NOT WANT FURTHER SHELTER REFERRALS FAXED OUT. CM DISCUSSED THAT PT IS STABLE FOR DISCHARGE MEDICALLY. PT'S DAUGHTER REPORTS PT IS NOT HAVING BOWEL MOVEMENTS AND THAT THE FECES COMING OUT IS COMING AROUND AN IMPACTION AND NO ONE IS ADDRESSING THIS. CM NOTIFIED TOBY THOMAS WHO PROVIDED ORDERS FOR MEDICATION TO TREAT CONDITION. BEDSIDE NURSE NOTIFIED. PT'S DAUGHTER PROVIDED CM WITH 77 PAGES AND ASKED CM TO FAX TO [facility] FOR FINANCIAL ASSISTANCE REGARDING REHAB SERVICES FOR PT. CM FAXED TO [facility] FINANCIAL ASSISTANCE PROGRAM AT [phone]. PT'S DAUGHTER ADVISED THAT IF APPROVED, PT WILL HAVE TO GO TO A [facility] CENTER FOR REHAB. PT WAS DECLINED HELPDESK TECHNICIAN CARE PLACEMENT AT [facility]; PT AND FAMILY DECLINE TO HAVE FURTHER REFERRALS SENT OUT. FAMILY IS TRYING TO SECURE FINANCIAL ASSISTANCE FOR REHAB SERVICES THROUGH [facility]. CM TO CONTINUE TO FOLLOW AND ASSIST. Sandor Butt CASE MANAGEMENT DCP- Discharge Planning Updated by [id number]: Sandor Butt on 06/04/19 11:[address] Patient Name: TROY HAYWOOD Encounter No: [id number] : 1955 Primary Insurance: MEDICAID [place] Anticipated DC Date: 06-02-2019 Planned Disposition: Nursing Facility [facility] Cert External Planned Provider: WAITING FAMILY DECISION DCP follow-up note: CM RECEIVED CALL FROM ANNIE OF [facility] WHO ADVISED CM THAT PT HAS BEEN FIANCIALLY DENIED FOR PLACEMENT. CM SPOKE TO PT IN ROOM WHO ADVISED THAT SHE UNDERSTOOD THEY WERE JUST GOING TO LEAVE HER LAYING IN BED FOR A MONTH AND NOT GIVE HER ANY REHAB SERVICES. CM EXPLAINED THAT MEDICAID DOES NOT PAY FOR REHAB SERVICES, ONLY DETENTION CARE AND PT WOULD RECEIVE WHAT THEY CALL "RESTORATIVE CARE" FROM STAFF AT ANY SHELTER, NOT THERAPY SERVICES. PT STATES SHE IS NOW ABLE TO STAND UP WITH THERAPY HERE. CM EXPLAINED THAT PT IS GETTING 8 TO 16 MINUTES OF THERAPY PER DAY AND THAT ALTHOUGH CM WAS HAPPY WITH PROGRESSION, PT IS MEDICALLY STABLE TO LEAVE THE HOSPITAL AND THAT SHE WOULD RECEIVE MORE THERAPY AT HOME WITH HOME HEALTH THAN IN THIS ACUTE HOSPITAL SETTING. PT STATES SHE IS NOT SURE WHAT HAPPENED, THAT CHEPE IS TAKING CARE OF THIS FOR HER AND THAT CHEPE WILL BE TO THE HOSPITAL IN A LITTLE WHILE TO SPEAK TO CM; PT BELIVES THAT CHEPE IS AGAIN WORKING ON TRYING TO GET TREY REHAB CARE THROUGH THE [facility]. PT HAS BEEN FINANCIALLY DECLINED FOR DETENTION CARE PLACEMENT BY [facility]. PT DEFERRING PLANNING TO HER DAUGHTER, CHEPE. CM WAITING FAMILY TO ARRIVE TO DISCUSS FURTHER DISCHARGE PLANNING. Sandor Butt, CASE MANAGEMENT DCP- Discharge Planning Updated by [id number]: Sandor Butt on 06/03/19 7:[address] Patient Name: TROY HAYWOOD Encounter No: [id number] : 1955 Primary Insurance: MEDICAID [place] Anticipated DC Date: 06-02-2019 Planned Disposition: Nursing Facility [facility] Cert External Planned Provider: [facility], DETENTION CARE MEDICAID BED DISCHARGE PLANNING NOTE: CM FAXED REFERRAL UPDATE TO [facility] AT [phone]. CM WAITING ADMISSION DETERMINATION FROM [facility] FOR HELPDESK TECHNICIAN CARE. WAITING FAMILY TO PROVIDE FINANCIAL INFORMATION FOR HELPDESK TECHNICIAN CARE MEDICAID APPLICATION TO FACILITY. Sandor Butt CASE MANAGEMENT DCP- Discharge Planning Updated by [id number]: Sandor Butt on 06/02/19 3:[address] Patient Name: TROY HAYWOOD Encounter No: [id number] : 1955 Primary Insurance: MEDICAID [place] Anticipated DC Date: 06-02-2019 Planned Disposition: Nursing Facility [facility] Cert External Planned Provider: [facility], HELPDESK TECHNICIAN [facility] MEDICAID BED DCP follow-up note: CM FAXED REFERRAL UPDATE TO [facility] AT [phone]. CM WAITING ADMISSION DETERMINATION FROM [facility] FOR DETENTION CARE. Sandor Butt, CASE MANAGEMENT Appended by Sandor Butt on 06/02/2019 16:50 [employer]: CM RECEIVED CALL FROM LUIS OF [facility], , THEY RECEIVED THE UPDATE BY FAX AND WILL CONTACT FAMILY REGARDING FINANCIALS. LUIS REPORTS THEY ARE STILL WAITING ON NURSING TO ACCEPT FOR HELPDESK TECHNICIAN CARE AND WILL ALSO NEED FINANCIAL CLEARANCE TO ENTER THE FACILITY. CM WAITING ADMISSION DETERMINATION FROM [facility] FOR HELPDESK TECHNICIAN CARE. [facility] CONTACTING FAMILY TO ASSIST WITH FINANCIAL INFORMATION FOR DETENTION CARE MEDICAID APPLICATION. Sandor Butt CASE MANAGEMENT DCP- Discharge Planning Updated by [id number]: Sandor Butt on 06/01/19 4:[address] Patient Name: TROY HAYWOOD Encounter No: [id number] : 1955 Primary Insurance: MEDICAID [place] Anticipated DC Date: 06-02-2019 Planned Disposition: Nursing Facility [facility] Cert External Planned Provider: [facility] HELPDESK TECHNICIAN CARE MEDICAID BED DCP follow-up note: CM MET WITH PT AND DAUGHTER [place], WHO HAS MADE IT FROM [place]. UPDATE PROVIDED. CM CALLED [facility] [place] INFORMED CM THAT REFERRAL FROM AND [facility] WAS RECEIVED, STAFF IN MEETING TODAY AND THEY WILL FINISH ADMISSION REVIEW TOMORROW, 06-02-19. CM NOTIFIED PT AND DAUGHTER IN ROOM. CM WAITING ADMISSION DETERMINATION FROM [facility] FOR DETENTION CARE. Sandor Butt CASE MANAGEMENT DCP- Discharge Planning Updated by [id number]: Sandor Butt on 05/31/19 3:[address] Patient Name: TROY HAYWOOD Encounter No: [id number] : 1955 Primary Insurance: MEDICAID [place] Anticipated DC Date: 06-01-2019 Planned Disposition: Nursing Facility [facility] Cert External Planned Provider: [facility], HELPDESK TECHNICIAN CARE MEDICAID BED DCP follow-up note: AFTER SEVERAL VISITS WITH PT IN ROOM, PHONE CALLS WITH DAUGHTERS, [facility] AND [facility], PT DECIDED TO CONSENT TO 30 DAYS OF HELPDESK TECHNICIAN CARE AT [facility] AFTER PT'S DAUGTHERS, WITH AIDE OF [facility], LOCATED [facility] WHO WILL CONSIDER PT FOR CARE. PT SIGNED CHOICE. CM FAXED REFERRAL INFORMATION TO [facility] AT [phone]. CM WAITING ADMISSION DETERMINATION FROM [facility] AND [facility] FOR DETENTION CARE. Sandor Butt, CASE MANAGEMENT DCP- Discharge Planning Updated by [email or web address]: Sandor Butt on 05/28/19 3:[address] Patient Name: TROY HAYWOOD Encounter No: [id number] : 1955 Primary Insurance: MEDICAID [id number] Anticipated DC Date: 06-02-2019 Planned Disposition: Home with Home Health External Planned Provider: [facility] DCP follow-up note: CM RECEIVED CALL FROM PT'S DAUGHTER, CHEPE, WHO VERIFIED THAT SHE WILL COME NEXT WEEK TO STAY WITH PT FOR TWO OR THREE WEEKS TO CARE FOR PT AT HOME. CHEPE WILL DISCUSS WITH HER MOTHER THAT SHE WILL HAVE TO BE ABLE TO STAND AND TRANSFER FOR CHEPE TO CARE FOR HER. CM REVIEWED THERAPY NOTES TO PRESENT. 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 PT HAS BEDSIDE COMMODE AND WHEELCHAIR AT HOME. CHEPE REPORTS NEED OF [facility]. CHEPE WILL DISCUSS WITH PT AND TRY TO MOTIVATE HER TO MEET THERAPY GOALS PRIOR TO ARRIVAL ON NEXT FRIDAY OR FRIDAY. PT'S DAUGHTER PLANS TO TAKE PT HOME NEXT FRIDAY OR FRIDAY, THEY WILL NEED [facility], DENIES FURTHER NEEDS. CM TO FOLLOW AND ASSIST NEEDED. Sandor Butt CASE MANAGEMENT DCP- Discharge Planning Updated by [id number]: Sandor Butt on 05/28/19 2:[address] Patient Name: TROY HAYWOOD Encounter No: [id number] : 1955 Primary Insurance: MEDICAID [place] Anticipated DC Date: Planned Disposition: Nursing Facility YUN Cert External Planned Provider: TO BE DETERMINED DCP follow-up note: CM SPOKE TO [facility], SHE INFORMED CM THAT UPDATES HAVE BEEN RECEIVED, PT IS NOT MAKING ENOUGH PROGRESS WITH THERAPY THAT THEY DO NOT BELIEVE THAT PT WILL BE ABLE TO ACHIEVE THERAPY GOALS IN THE REMAINING 10 DAYS OF ACUTE DAYS THAT PT HAS REMAINING. CM NOTIFIED PT AND PROVIDED PT WITH NURSING FACILITY LISTING OF ALL AVAILABLE FACILITIES WITHIN [address] [place]. PT WILL SPEAK TO HER DAUGHTER AND NOTIFY CM OF HER CHOICES. CM CALLED [facility] SALG[facility], , TWICE; AUTOMATED MESSAGE INFORMED CM THAT THE NUMBER WAS RESTRICTED OR CURRENTLY UNAVAILABLE. CM WAITING PT AND FAMILY TO PROVIDE NURSING FACILITY CHOICES FOR HELPDESK TECHNICIAN CARE. Sandor Butt, CASE MANAGEMENT Appended by Sandor Butt on 05/28/2019 12:07 CDT: CM SPOKE TO PT IN ROOM, NOTIFIED PT THAT CM TRIED AND COULD NOT REACH DAUGHTER HOUSTON VIA PHONE. PT REPORTS SHE SPOKE TO [facility]STON WHO TOLD HER THAT [facility] WILL NOT TAKE HER DUE TO WEIGHT; PT'S DAUGHTER TOLD PT THAT [facility] PROBAB[facility] WILL NOT TAKE HER. PT REPORTS THERE IS ONE IN [place] THAT MIGHT CONSIDER HER. CM OFFERED CHOICE FORM FOR SIGNATURE SO THAT CM COULD SEND REFERRALS AND BEGIN CALLING TO FIND PLACEMENT. PT REFUSED AND STATES SHE HAS A DAUGHTER, CHEPE, WHO IS A REGISTERED NURSE, THAT MAY BE COMING TO TAKE CARE OF PT AT HOME. PT'S DAUGHTER HOUSTON IS CALLING DAUGHTER CHEPE TO DISCUSS THE OPTION. PT STATES SHE WILL LET CM KNOW THE OUTCOME AND IF SHE WANTS CM TO EXPLORE SHELTER CARE FOR HER. CM WAITING PT AND FAMILY TO PROVIDE NURSING FACILITY CHOICES AND FOR PT TO SIGN CONSENT FOR SHELTER PLACEMENT. PT IS NOW HOPEFUL THAT HER DAUGHTER WHO IS A REGISTERED NURSE WILL COME AND STAY WITH PT AND TAKE CARE OF HER AT HOME. SANDOR BUTT, CASE MANAGEMENT Appended by Sandor Butt on 05/28/2019 14:27 CDT: CM RECEIVED MESSAGE THAT PT WANTS TO SEE CM. CM MET WITH PT IN ROOM WHO INFORMED CM THAT SHE HIS NOT GOING TO A SHELTER, THAT HER DAUGHTER, CHEPE, WHO IS A NURSE, WILL BE HERE NEXT FRIDAY TO TAKE HER HOME AND WILL TAKE CARE OF PT AT HOME. PT ASKED FOR [facility]. CM DISCUSSED POSSIBLE NEED OF DEBORAH LIFT AND ASKED ABOUT ADDITIONAL EQUIPMENT. PT THINKS BY NEXT WEEK, SHE WILL BE ABLE TO TRANSFER WITHOUT AIDE OF LIFT DEVICE. CM NOTIFIED DR. FREEDMAN WHO INFORMED CM THAT HE WILL ORDER BLOOD GAS ON FRIDAY TO DETERMINE RESPIRATORY DISCHARGE NEEDS AT THAT TIME. PT HAS SIGNED RIGHT OF CHOICE FOR [facility] ALREADY. PT REPORTS HER DAUGHTER, WHO IS A REGISTERED NURSE, WILL BE HERE FRIDAY OF NEXT WEEK TO TAKE CARE OF PT AT HOME. PT PLANS TO DISCHARGE HOME WITH FAMILY AND [facility]. CM TO FOLLOW AND ASSIST NEEDED. ROSANNA MONTAÑO DCP- Discharge Planning Updated by [id number]: Sandor Butt on 05/28/19 7:[address] Patient Name: TROY HAYWOOD Encounter No: [id number] : 1955 Primary Insurance: MEDICAID [place] Anticipated DC Date: Planned Disposition: Inpatient Rehab External Planned Provider: [facility] DCP follow-up note: CM FAXED REFERRAL UPDATE TO [facility] AT [phone]. CM WAITING ADMISSION DETERMINATION FROM [facility] IN [place]. ROSANNA Montaño DCP- Discharge Planning Updated by [id number]: Sandor Butt on 05/27/19 2:[address] Patient Name: TROY HAYWOOD Encounter No: [id number] : 1955 Primary Insurance: MEDICAID [place] Anticipated DC Date: Planned Disposition: Inpatient Rehab External Planned Provider: [facility] DCP follow-up note: CM FAXED REFERRAL UPDATE TO [facility] AT [phone]. CM WAITING ADMISSION DETERMINATION FROM [facility] IN [place]. ROSANNA Montaño MANAGEMENT Appended by Sandor Butt on 05/27/2019 14:41 CDT: CM CALLED [facility], , LEFT MESSAGE ASKING FOR UPDATE ON REFERRAL AND TO KNOW IF THEY ARE STILL CONSIDERING PT FOR REHAB. CM WAITING ADMISSION DETERMINATION FROM [facility] IN [place]. ROSANNA Montaño DCP- Discharge Planning Updated by [id number]: Jesica Cartagena on 05/26/19 4:[address] Patient requested Trapeze bar to allow her to sit up in hospital bed. CM spoke Dr. Lawson and obtained approval for Trapeze bar. CM notified Radha in materials management of request for Trapeze bar. CM completed and gave Radha the order form for the Trapeze bar. Trapeze bar will be delivered. CM notified patient's CM, Christiano Daquan, on status of Trapeze bar. DCP- Discharge Planning Updated by [id number]: Sandor Buttswell on 05/26/19 3:[address] Patient Name: TROY HAYWOOD Encounter No: [id number] : 1955 Primary Insurance: MEDICAID [facility] Date: Planned Disposition: Inpatient Rehab External Planned Provider: [facility] DCP follow-up note: CHRISTOPHER SPOKE TO PT'S DAUGHTER VIA PHONE, HOUSTON GERMAINBLOOD, . CHRISTOPHER OBTAINED PERMISSION FROM PT TO DISCUSS CARE, TREATMENT AND DISCHARGE PLANNING WITH HOUSTON. HOUSTON INFORMED CHRISTOPHER THAT PT WAS IN REHAB AT [facility] LAST YEAR AND THEY WANT REFERRED TO [facility] AGAIN. CHRISTOPHER DISCUSSED PT'S VERY LOW LEVEL OF PHYSICAL CONDITIONING. PT'S DAUGHTER FEELS THAT PT CAN PARTICIPATE WITH THERAPY WITH GOAL TO RETURN HOME PREVIOUS WITH ABILITY TO TRANSFER TO ELECTRIC SCOOTER AND HOME HEALTH FOR CONTINUED HOME SERVICES. HOUSTON VERIFIED THAT PT HAS NO ADULTS ABLE TO LIVE WITH AND ASSIST PT AT HOME AT THIS TIME. [facility]STON ASKED ABOUT [facility] THAT MAY TAKE PT AT NO COSTS DUE TO INCOME. CHRISTOPHER INFORMED HOUSTON THAT CHRISTOPHER WAS NOT FAMILIAR WITH ANY OF THESE PROGRAMS. HOUSTON WOULD LIKE TO HAVE PT EVALUATED FOR REHAB AT [facility] PRIOR TO ANY CONSIDERATION OF SHELTER PLACEMENT PT WILL NOT GET THERAPY THERE. CHRISTOPHER SPOKE TO PT WHO IS IN AGREEMENT WITH PLAN. CHRISTOPHER CALLED [facility], , NOTIFIED OF REHAB REQUEST; PT HAS ONLY 24 ACUTE DAYS THAT STARTED IN JANUARY, IT DEPENDS ON HOW MANY HAVE BEEN ALREADY USED, PT'S CONDITION AND NEEDS THAT WOULD HAVE TO BE MET IN THE REMAINING DAYS THAT PT HAS TO USE FOR REHAB . CHRISTOPHER FAXED REFERRALINFORMATION TO [facility] WITH CURRENT MAR AT [phone]. CM WAITING ADMISSION DETERMINATION FROM [facility] IN [place]. Sandor Butt, CASE MANAGEMENT Appended by Sandor Butt on 05/26/2019 15:24 CDT: CM MET WITH PT, GRANDDAUGHTER, DAUGHTER HOUSTON VIA PHONE WITH CM SUBGRADE TESTER, UNIT NURSE REVIEW MANAGER, REPIRATORY THERAPIST AND SUBGRADE TESTER OF THERAPY SERVICES REGARDING DISCHARGE PLANNING. CONCERNS OF PT'S PLAN TO GO HOME IN CURRENT CONDITION DISCUSSED. PT AND DAUGHTER HAVE ALREADY ASKED FOR REFERRAL TO [facility], CM HAS SENT IT AND WAITING DETERMINATION. PLAN "B" WAS AGREED TO BE NURSING FACILITY IF NOT ACCEPTED TO [facility] AND THAT CM WOULD ATTEMPT TO FIND ONE THAT MAY DONATE REHAB SERVICES. PT'S DAUGHTER IS RESEARCHING [employer]DING FROM [employer] FOR REHAB SERVICES. CM WAITING ADMISSION DETERMINATION FROM [facility] IN [place]. Sandor Butt, CASE MANAGEMENT DCP- Discharge Planning Updated by [id number]: Sandor Butt on 05/25/19 2:[address] Patient Name: TROY HAYWOOD Encounter No: [id number] : 1955 Primary Insurance: MEDICAID [facility] Date: Planned Disposition: Home HEALTH External Planned Provider: [facility], VISITING [facility] follow-up note: CM MET WITH PT IN ROOM TO DISCUSS DISCHARGE NEEDS AND PLANNING. CM DISCUSSED AVAILABILITY OF HOME HEALTH, REHAB SERVICES AND MEDICAL EQUIPMENT. PT REFUSES [facility]P FACILITY PLACEMENT. PT STATES PLAN TO RETURN HOME. 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 PT WAS ABLE TO AMBULATE SMALL DISTANCES AND TRANSFER SELF FROM BED TO ELECTRIC WHEELCHAIR AT HOME. PT THINKS SHE IS GOING TO BE ABLE TO TRANSFER SELF TO GO BACK HOME. PT WANTS HOME HEALTH RESUMED TO GO HOME. CM EXPRESSED CONCERN OF PT'S CURRENT LEVEL OF FUNCTIONING AND RETURNING HOME. PT DENIES HAVING FRIENDS OR FAMILY TO ASSIST WITH HER CARE AT HOME BUT IS NOT GOING TO A SHELTER. PT THINKS SHE WILL NEED AN AMBULANCE FOR TRANSPORT HOME HER ELECTRIC WHEELCHAIR IS THERE. CM EXPLAINED TO PT THAT SHE WILL NEED TO DEMONSTRATE WITH THERAPY THE ABILITY TO TRANSFER AND SIT IN CHAIR FOR DISCHARGE. PT STATED UNDRESTANDING. CHOICE FOR [facility] ON AGING VISITING NURSES HOME HEALTH SIGNED. 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 PT REFUSED NURSING FACILITY PLACEMENT. PT WILL NEED TO DEMONSTRATE ABILITY TO TRANSFER AND SIT IN CHAIR FOR DISCHARGE SHE HAS ELECTRIC WHEELCHAIR AT HOME. CM TO ARRANGE HOME HEALTH RESUMPTION WITH [facility] ON AGING VISITING NURSES AGENCY IN [place] FOR DISCHARGE HOME. CM TO CONTINUE TO FOLLOW AND ASSIST NEEDED. Sandor Butt, CASE MANAGEMENT DCP- Discharge Planning Updated by [id number]: Aleisha Monroe on 05/19/19 7:[address] Patient Name: TROY HAYWOOD Admission Status: ER Accout number: [id number] Admission Date: 05-14-2019 : 1955 Admission Diagnosis: Attending: FABIO PINEDA Current LOS: 5 Anticipated DC Date: Planned Disposition: Home or Self Care Primary Insurance: MEDICAID [place] Discharge Planning Comments: CM met with patient and daughter to complete initial dc planning assessment. Patient recently extubated earlier today. CM educated patient on the CM role and verbal consent given by patient to complete assessment. Patient lives at home with her two young grand-daughters where she is independent with her care. At discharge patient plans to return home and feels this is a safe discharge. CM discussed availability of home health, rehab services, and medical equipment. Patient has Home 02 and HH with unknown providers. CM will f/u with patient @ later date to see if she is able to give providers. Patient denied known discharge needs at this time. CM will continue to follow and will assist as needed with dc plans/needs. Hand Booked Folder And Stitcher: Aleisha Monroe DCPIA - Discharge Planning Initial Assessment Updated by [id number]: Sandor Butt on 05/28/19 9:36 am * How many steps to enter\\exit or inside your home? * PCP uncertain ? * Pharmacy [place] * Preadmission Environment Home with Family * ADLs Independent * Other Equipment HOME 02, WALKER, SCOOTER, BSC, SC * List name and contact numbers for known caregivers / representatives who currently or will assist patient after discharge: CHEPE SUN - DAUGHTER- [phone] HOUSTON SALGADO, DTR - [phone] * Verbal permission to speak to the caregivers and representatives has been obtained from the patient. Yes * Community resources currently utilized Home Health * Please name any agencies selected above. [facility] * Additional services required to return to the preadmission environment? No * Can the patient safely return to the preadmission environment? Yes * Has this patient been hospitalized within the prior 30 days at any hospital? No Coverage Notice Reviewer: NAYLA Butt Notice Issued Date-Time: 05/25/2019 14:05 Notice Type: Patient Choice Letter Notice Delivered To: Patient Relationship to Patient: Flooring Machine Feeder Name: Delivery Method: HAND - Hand Delivered Marry Days: Prior Verbal Notification: Recipient Understood Notice: Yes Recipient Signature: Yes Med Rec Note Co-signed by Attending: Coverage Notice Comment: [facility]- VISITING NURSES [facility] Reviewer: NAYLA Butt Notice Issued Date-Time: 05/31/2019 14:50 Notice Type: Patient Choice Letter Notice Delivered To: Patient Relationship to Patient: Flooring Machine Feeder Name: Delivery Method: HAND - Hand Delivered Marry Days: Prior Verbal Notification: Recipient Understood Notice: Yes Recipient Signature: Yes Med Rec Note Co-signed by Attending: Coverage Notice Comment: [facility] Reviewer: NAYLA Butt Notice Issued Date-Time: 06/09/2019 9:55 Notice Type: Patient Choice Letter Notice Delivered To: Patient Relationship to Patient: Flooring Machine Feeder Name: Delivery Method: HAND - Hand Delivered Marry Days: Prior Verbal Notification: Recipient Understood Notice: Yes Recipient Signature: Yes Med Rec Note Co-signed by Attending: Coverage Notice Comment: [facility] ANY ACCEPTING [facility]LITY Reviewer: NAYLA Butt Notice Issued Date-Time: 06/10/2019 16:25 Notice Type: Patient Choice Letter Notice Delivered To: Patient Relationship to Patient: Flooring Machine Feeder Name: Delivery Method: HAND - Hand Delivered Marry Days: Prior Verbal Notification: Recipient Understood Notice: Yes Recipient Signature: Yes Med Rec Note Co-signed by Attending: Coverage Notice Comment: [facility] Reviewer: NAYLA Butt Notice Issued Date-Time: 06/17/2019 13:55 Notice Type: Patient Choice Letter Notice Delivered To: Patient Relationship to Patient: Flooring Machine Feeder Name: Delivery Method: HAND - Hand Delivered Marry Days: Prior Verbal Notification: Recipient Understood Notice: Yes Recipient Signature: Yes Med Rec Note Co-signed by Attending: Coverage Notice Comment: ANY ACCEPTING [facility] FACILITY Reviewer: NAYLA Butt Notice Issued Date-Time: 06/18/2019 14:16 Notice Type: Patient Choice Letter Notice Delivered To: Patient Relationship to Patient: Flooring Machine Feeder Name: Delivery Method: HAND - Hand Delivered Marry Days: Prior Verbal Notification: Recipient Understood Notice: Yes Recipient Signature: Yes Med Rec Note Co-signed by Attending: Coverage Notice Comment: [facility] PATIENT Last DP export: 06/18/19 2:55 Patient Name: TROY HAYWOOD Page [id number] at 1605 All edits/amendments must be made on the electronic document DICTATION DATE: 06/21/191603 BOILER ENGINEER: MISHEL 06/21/191603 RPT#: [id number] DC DATE: STATUS: ADM IN [facility] [address] [place] [address] END OF REPORT
--- NOTE | 2019-06-21 16:19 | MORECARE ---
CASE MANAGEMENT DISCHARGE SUMMARY PATIENT: TROY HAYWOOD UNIT: [id number] ADM DATE: 05/14/19 AGE: 64 : 57 SEX: F ROOM/BED: D.2140 AUTHOR: DAYDAY,DOC PHYSICIAN: REFERRING PHYSICIAN: FABIO PINEDA MD DATE OF SERVICE: 06/21/19 Discharge Plan Patient Name: TROY HAYWOOD Facility: [facility]:[place] : 1955 Planned Disposition: Nursing Facility [facility] Cert Anticipated Discharge Date: 06/22/19 Discharge Date: Expected LOS: 39 Initial Reviewer: [id number] Initial Review Date: 05/19/2019 Generated: 06/21/19 5:19 pm DCP- Discharge Planning Updated by [id number]: Sandor Butt on 06/18/19 2:[address] Patient Name: TROY HAYWOOD Encounter No: [id number] : 1955 Primary Insurance: [place]ID [place] Anticipated DC Date: 06-11-2019 Planned Disposition: Nursing Facility [facility] Cert External Planned Provider: FIRST ACCEPTING FACILITY, WATER PIPE INSTALLER CARE MEDICAID BED DCP follow-up note: CM RECEIVED CALL FROM [facility], , SPOKE TO [place] WHO INFORMED CM THEY ARE CONSIDERING PT FOR TREY THERAPY WITH THE HALF-WAY CARE PLACEMENT, REQUESTED FINANDICAL INFORMATION. CM FAXED FINANCIAL INFORMATION TO [facility] AT [phone]. CHAR KISER, . MET WITH PT AND ASSISTED WITH APPLICATION FOR "[employer]" MEDICARE AND IS STILL WORKING TO GET PT INTO ONE OF HER NURSING HOMES FOR THERAPY SERVICES. CM RECEIVED CALL FROM TROY OF [facility], SHE HAS A FACILITY IN [facility] THAT IS A NON PROFIT AND THEY ARE CONSIDERING PT FOR TREY REHAB SERVICES. PT HAS BEEN DECLINED BY [facility] ([facility]), [facility] ([facility]), [facility] (PRIVATE PAY), [facility] AND [facility]. - CM WAITING ADMISSION DETERMINATION FROM [facility] FOR WATER PIPE INSTALLER CARE PLACEMENT IN ONE OF HER AFFILIATED NURSING HOMES. - CM WAITING ADMISSION DETERMINATION FROM [facility] FOR WATER PIPE INSTALLER CARE. - CM WAITING DETERMINATION FROM [facility] FOR HALF-WAY CARE PLACEMENT IN ONE OF HER AFFILIATED NURSING HOMES. Sandor Butt, CASE MANAGEMENT Appended by Sandor Butt on 06/18/2019 15:46 BURR PICKER: CM RECEIVED ORDER FOR TRILOGY, SPOKE TO PT WHO REQUESTED [facility] IN [facility] HER OXGYEN IS FROM THEM, IF NOT, [facility] OR [facility]. CM CALLED [facility] IN [facility], SPOKE TO TESS WHO REFERRED CM TO [facility] IN [place]. CM CALLED [facility] IN [place], , SPOKE TO MAHESH WHO INFORMED CM THAT MEDICAID WOULD COVER TRILOGY, THEY CAN PROCESS THE ORDER. CM FAXED ORDER TO [facility] AT [phone]. - CM WAITING TRILOGY ORDER PROCESSING AND HOSPITAL DELIVERY OF TRILOGY BY [facility]. - CM WAITING ADMISSION DETERMINATION FROM [facility] FOR HALF-WAY CARE PLACEMENT IN ONE OF HER AFFILIATED NURSING HOMES. - CM WAITING ADMISSION DETERMINATION FROM [facility] FOR WATER PIPE INSTALLER CARE. - CM WAITING DETERMINATION FROM [facility] FOR HALF-WAY CARE PLACEMENT IN ONE OF HER AFFILIATED NURSING HOMES. Sandor Butt, CASE MANAGEMENT DCP- Discharge Planning Updated by [id number]: Sandor Butt on 06/17/19 2:[address] Patient Name: TROY HAYWOOD Encounter No: [id number] : 1955 Primary Insurance: MEDICAID [facility] DC Date: 06-11-2019 Planned Disposition: Nursing Facility [facility] External Planned Provider: [facility] ACCEPTING FACILITY, HALF-WAY CARE MEDICAID BED DCP follow-up note: CM RECEIVED PHONE MESSAGE FROM [facility], HE AND THE DOCTOR HAVE REVIEWED REFERRAL AND DECLINED PT. THEY DO NOT FEEL PT HAS MADE SIGNIFICANT PROGESS AND HAS NOT DEMONSTRATED ABILITY TO DO THREE HOURS OF PROGRESSIVE THERAPY. CM MET WITH PT IN ROOM, DISCUSSED DENIAL FOR INPATIENT REHAB BY [facility], DISCUSSED HALF-WAY CARE [facility] OPTIONS. PT DID SIGN CONSENT FOR ANY LONGTERM FACILITY; PT ASKED CM TO KEEP PT CLOSE TO HOME POSSIBLE. CM EXPLAINED THAT A STATEWIDE SEARCH WILL BE DONE AND THAT ALL EFFORTS WILL BE MADE TO KEEP PT CLOSE TO [place] AND [place] POSSIBLE REQUESTED. CM CALLED PT'S DAUGHTER CHEPE AT PT'S REQUEST, NOTIFIED HER OF ABOVE INFORMATION. CHEPE AGREES THAT PT IS STILL NOT SAFE TO RETURN HOME IN HER CURRENT CONDITION AND AGREES WITH [facility] PLACEMENT FOR RESTORATIVE CARE. CM CALLED [facility], , SPOKE TO CORINA WHO INFORMED CM THAT THEY DO BERIATRIC CARE. CM FAXED REFERRAL TO [facility] AT [phone]. CM FAXED REFERRAL UPDATE TO [facility], . CHAR INQUIRED ABOUT WHEN DID PT BEGIN RECEIVING SOCIAL SECURITY DISABILTY, PT STATES 15 YEARS AGO, INFORMATION PROVIDED TO CHAR. CHRISTOPHER FAXED REFERRAL UPDATE TO [facility], . PT HAS BEEN DECLINED BY [facility] ([facility]), [facility]), [facility] (PRIVATE PAY), [facility] AND [facility]. - CM WAITING ADMISSION DETERMINATION FROM [facility] FOR WATER PIPE INSTALLER CARE PLACEMENT IN ONE OF HER AFFILIATED NURSING HOMES. - CM WAITING ADMISSION DETERMINATION FROM [facility] FOR HALF-WAY CARE. - CM WAITING DETERMINATION FROM [facility] FOR HALF-WAY CARE PLACEMENT IN ONE OF HER AFFILIATED [facility] HOMES. Sandor Butt, CASE MANAGEMENT DCP- Discharge Planning Updated by [id number]: Sandor Butt on 06/17/19 8:[address] Patient Name: TROY HAYWOOD Encounter No: [id number] : 1955 Primary Insurance: MEDICAID [facility] DC Date: 06-11-2019 Planned Disposition: Nursing Facility [facility] Cert External Planned Provider: FIRST ACCEPTING FACILITY DCP follow-up note: CM ATTEMPTED TO EMAIL [employer] FOR UPDATE ON APPLICATION AT [email or web address] THE EMAIL FAILED. CM FAXED REQUEST FOR UPDATE TO [employer] AT [phone] AND [phone]. - CM WAITING ADMISSION DETERMINATION FROM [facility] FOR HALF-WAY CARE PLACEMENT IN ONE OF HER AFFILIATED NURSING HOMES. - CM WAITING RETURN CALL FROM [facility] IN [place] REGARDING TREY REHAB. - CM WAITING DETERMINATION FROM [facility] FOR WATER PIPE INSTALLER CARE PLACEMENT IN ONE OF HER AFFILIATED NURSING HOMES. Sandor Btut, CASE MANAGEMENT Sandor Butt DCP- Discharge Planning Updated by [id number]: Sandor Butt on 06/16/19 4:[address] Patient Name: TROY HAYWOOD Encounter No: [id number] : 1955 Primary Insurance: [place] Anticipated DC Date: 06-11-2019 Planned Disposition: Nursing Facility [facility] Cert External Planned Provider: FIRST ACCEPTING FACILITY DCP follow-up note: CM FAXED REFERRAL UPDATE TO [facility] FOR WATER PIPE INSTALLER CARE PLACEMENT AT [phone]. CM FAXED REFERRAL UDPATE TO [facility] AT [phone]. CM FAXED UPDATE TO [facility] AT [phone] FOR WATER PIPE INSTALLER CARE PLACEMENT. - CM WAITING ADMISSION DETERMINATION FROM [facility] FOR HALF-WAY CARE PLACEMENT IN ONE OF HER AFFILIATED NURSING HOMES. - CM WAITING RETURN CALL FROM [facility] IN [place] REGARDING TREY REHAB. - CM WAITING DETERMINATION FROM [facility] FOR WATER PIPE INSTALLER CARE PLACEMENT IN ONE OF HER AFFILIATED NURSING HOMES. ROSANNA Montaño DCP- Discharge Planning Updated by [id number]: Sandor Butt on 06/15/19 3:[address] Patient Name: TROY HAYWOOD Encounter No: [id number] : 1955 Primary Insurance: [place] Anticipated DC Date: 06-11-2019 Planned Disposition: Nursing Facility [facility] Cert External Planned Provider: FIRST ACCEPTING DCP follow-up note: CHRISTOPHER SENT MESSAGE TO [facility]OY [facility], , OF [facility] ASKING FOR WATER PIPE INSTALLER CARE PLACEMENT ASSISTANCE WITH REHAB IF POSSIBLE. CM FAXED REFERRAL TO TROY AT [phone]. CM CALLED [facility] IN [facility], , HE HAS NOT BEEN ABLE TO GET A DETERMINATION ON TREY AND CANNOT LOCATE THE PERSON IN CORPORATE WHO HAS PT'S TREY APPLICATION. HE WILL CONTINUE TO TRY TO LOCATE WHO IS PROCESSING THE APPLICATION HE HAS NOT SEEN IT OR HEARD ANY DETERMINATION. CHRISTOPHER FAXED REFERRAL UDPATE TO [facility] AT [phone]. M FAXED UPDATE TO [facility] AT [phone]. CHAR INFORMED CM THAT SHE HAS NO BERIATRIC [facility] BED YET BUT IS HOPEUL TO HAVE AN OPENING "SOON". ASKED BY PT'S DAUGHTER, CM CALLED AND SPOKE TO RUT, , OF [facility] AND REQUESTED PRIVATE PAY DOWN PAYMENT AND MONTHLY PAYMENT AMOUNTS FOR REHAB AT [facility]. CM FAXED REFERRAL TO [facility] AT [phone]. - CM WAITING ADMISSION DETERMINATION FROM [facility] FOR WATER PIPE INSTALLER CARE PLACEMENT IN ONE OF HER AFFILIATED [facility]. - CM WAITING RETURN CALL FROM [facility] IN [place] REGARDING TREY REHAB. - CM WAITING DETERMINATION FROM [facility] FOR WATER PIPE INSTALLER CARE PLACEMENT IN ONE OF HER AFFILIATED [facility]. Sandor Butt, CASE MANAGEMENT Appended by Sandor Butt on 06/15/2019 16:28 BURR PICKER: CM FAXED [facility] TREY APPLICATION TO [facility]. CM SPOKE TO [facility] WHO EXPLAINED SHE IS CONTINUING TO LOOK FOR [facility] PLACEMENT; THE OBSTACLE IS THE COSTS OF RENTING BIPAP AND OTHER BERIATRIC EQUIPMENT. CM SPOKE TO RUT OF [facility] INPATIENT [facility], THEY WILL NOT CONSIDER PATIENT FOR REHAB ON PRIVATE PAY BASIS AND WOULD DENY PATIENT REGARDLESS DUE TO HER "ENTIRE SITUATION". CM NOTIFIED PT AND DAUGHTER IN ROOM OF PROGRESS AND LACK THEREOF. CM ASKED TO SEND REFERRALS TO OTHER NURSING FACILITIES, PT REFUSED STATING SHE WANTS TO WAIT FOR DEFINITE ANSWER FROM [facility] FOR TREY REHAB SERVICES. - CM WAITING ADMISSION DETERMINATION FROM [facility] FOR HALF-WAY CARE PLACEMENT IN ONE OF HER AFFILIATED [facility]. - CM WAITING RETURN CALL FROM [facility] IN [place] REGARDING TREY REHAB. - CM WAITING DETERMINATION FROM [facility] FOR HALF-WAY CARE PLACEMENT IN ONE OF HER AFFILIATED [facility]. Sandor Butt, CASE MANAGEMENT DCP- Discharge Planning Updated by [id number]: Sandor Butt on 06/11/19 3:[address] Patient Name: TROY HAYWOOD Encounter No: [id number] : 1955 Primary Insurance: MEDICAID [facility] Date: 06-11-2019 Planned Disposition: Nursing Facility [facility] Cert External Planned Provider: : DCP follow-up note: CM RECEIVED MESSAGE FROM TROY OF [facility], THEY WILL NOT ACCEPT PT. CM FAXED REFERRAL UDPATE TO [facility] AT [phone]. CM FAXED UPDATE TO [facility] AT [phone]. CHAR INFORMED CM THAT SHE ANTICIPATES A BERIATRIC [facility] BED OPENING "SOON". CM NOTIFIED PT AND DAUGHTER OF PROGRESS / LACK THEREOF IN ROOM. - CM WAITING ADMISSION DETERMINATION FROM [facility] FOR WATER PIPE INSTALLER CARE PLACEMENT IN ONE OF HER AFFILIATED [facility]. - CM WAITING RETURN CALL FROM [facility] IN [place] REGARDING TREY REHAB. Sandor Butt, CASE MANAGEMENT DCP- Discharge Planning Updated by [id number]: Sandor Butt on 06/10/19 3:[address] Patient Name: TROY HAYWOOD Encounter No: [id number] : 1955 Primary Insurance: [place] Anticipated DC Date: 06-11-2019 Planned Disposition: Nursing Facility [facility] Cert External Planned Provider: FIRST ACCEPTING FACILITY DCP follow-up note: - CM RECEIVED CALL FROM [facility], THEY HAVE NOT AVAILABILITY FOR TREY REHAB BED. CM RECEIVED CALL FROM MIT[facility] OF [facility] IN [facility], THEY HAVE NOT RECEIVED TREY APPLICATION AND HAVE NO CURRENT BEDS BUT WOULD CONSIDER PT. CM RETURNED CALL TO [facility] AT [facility], , INFORMED THAT TREY APPLICATION HAD BEEN FAXED TO [facility] IN [facility], TELEPHONE CONTACT [phone]. HETAL ASKED FOR REFERRAL TO BE SENT AND HE WILL SCREEN FOR ADMISSION. CM FAXED REFERRAL TO [facility] AT [phone]. CM NOTIFIED PT AND DAUGHTER OF PROGRESS IN ROOM. PT AND DAUGHTER ASKED FOR CM TO SEND REFERRAL TO [facility] IN [place]. CHOICE SIGNED. CM FAXED REFERRAL TO [facility] AT [phone]. - CM WAITING ADMISSION DETERMINATION FROM [facility] FOR HALF-WAY CARE PLACEMENT IN ONE OF HER AFFILIATED [facility]. - CM WAITING RETURN CALL FROM [facility] IN [place] REGARDING TREY REHAB. - CM WAITING ADMISSION DETERMINATION FROM [facility]. Sandor Butt, CASE MANAGEMENT DCP- Discharge Planning Updated by [id number]: Sandor Butt on 06/09/19 3:[address] Patient Name: TROY HAYWOOD Encounter No: [id number] : 1955 Primary Insurance: [place]ID [place] Anticipated DC Date: 06-10-2019 Planned Disposition: Nursing Facility [facility] External Planned Provider: FIRST ACCEPTING FACILITY DCP follow-up note: CM SPOKE TO PT AND DAUGHTER, CHEPE, THEY WILL LET CM SEEK [facility] PLACEMENT FOR THEM TO CONSIDER BUT STILL DO NOT WANT WATER PIPE INSTALLER CARE IF THEY CAN OBTAIN REHAB THROUGH [facility]. DAUGHTER ADVISED SHE HAS CONFIRMED RECEIPT OF THE APPLICATION FAXED TO THE [facility] AND IS IN PROCESS OF REVIEW. DAUGHTER ASKED CM TO CHECK INTO REHAB'S THAT MAY HAVE [facility] AFFILIATION. CM CALLED [facility], , REQUESTED ASSISTANCE IN WATER PIPE INSTALLER CARE PLACEMENT WITH INTENT TO RETURN HOME. CHAR STATES THAT SHE MAY HAVE HOME'S WILL ACCEPT BARIATRIC PATIENT AND WILL ATTEMPT PLACEMENT. CHAR WILL MEET WITH PT LATER TODAY. CM FAXED REFERRAL TO [facility] AT [phone]. CM SPOKE TO [facility] OF [facility], TROY INFORMED CM THAT SHE HAS NO HOMES IN HER GROUP THAT MAY ASSIST WITH PLACEMENT. CM CALLED [facility] OF [place], WAS ADVISED BY [facility] THAT THEY WILL NOT CONSIDER FOR TREY CARE, THEY ARE NOT AFFILIATED WITH [facility]. CM CALLED [facility], , SPOKE TO CHELO WHO INFORMED CM THAT THEY ARE NOT AFFILIATED WITH [facility] BUT WILL CONSIDER PT FOR TREY REHAB. CM FAXED REFERRAL TO [facility] AT [phone]. CM CALLED [facility] IN [place], , SPOKE TO DHEERAJ WHO REPORTS THEY HAVE NO OPEN REHAB BEDS AND HAVE NO PROJECTED DISCHARGES SOON. THEY DO NOT HAVE WEIGHT LIMITS. DHEERAJ DID NOT WANT REFERRAL FAXED, SHE WILL REPORT TO BREN WHO WILL CHECK WITH THE [facility] REGARDING APPLICATION STATUS AND CALL CM TOMORROW, 06-10-19. CM NOTIFIED PT IN ROOM OF PROGRESS. PT STATES SHE MAY BE ABLE TO TRANSFER SELF AND GO HOME BEFORE CM FINDS REHAB FOR HER. - CM WAITING ADMISSION DETERMINATION FROM [facility] FOR HALF-WAY CARE PLACEMENT IN ONE OF HER AFFILIATED NURSING HOMES. - CM WAITING ADMISSION DETERMINATION FROM [facility] FOR TREY REHAB BED. - CM WAITING RETURN CALL FROM [facility] IN [place] REGARDING TREY REHAB. ROSANNA Montaño MANAGEMENT DCP- Discharge Planning Updated by [id number]: Sandor Butt on 06/04/19 4:[address] Patient Name: TROY HAYWOOD Encounter No: [id number] : 1955 Primary Insurance: MEDICAID [facility] DC Date: 06-02-2019 Planned Disposition: Nursing Facility [facility] Cert External Planned Provider: TO BE DETERMINED DCP follow-up note: CM SPOKE TO PT AND DAUGHTER CHEPE, IN ROOM. PT IS AND FOR PAST 10 YEARS, BUT NOT LEGALLY. THEY CANNOT QUALIFY FOR MEDICAID FOR WATER PIPE INSTALLER CARE DUE TO NOT HAVING SPOUSE FINANICAL INFORMATION. PT AND DAUGHTER BOTH STATE THAT THEY DO NOT WANT TO PUT PT INTO HALF-WAY [facility] CARE WHERE SHE WILL JUST LAY IN THE BED. THEY DO NOT WANT FURTHER [facility] REFERRALS FAXED OUT. CM DISCUSSED THAT PT IS STABLE FOR DISCHARGE MEDICALLY. PT'S DAUGHTER REPORTS PT IS NOT HAVING BOWEL MOVEMENTS AND THAT THE FECES COMING OUT IS COMING AROUND AN IMPACTION AND NO ONE IS ADDRESSING THIS. CM NOTIFIED TOBY THOMAS WHO PROVIDED ORDERS FOR MEDICATION TO TREAT CONDITION. BEDSIDE NURSE NOTIFIED. PT'S DAUGHTER PROVIDED CM WITH 77 PAGES AND ASKED CM TO FAX TO [facility] FOR FINANCIAL ASSISTANCE REGARDING REHAB SERVICES FOR PT. CM FAXED TO [facility]CIAL [facility] AT [phone]. PT'S DAUGHTER ADVISED THAT IF APPROVED, PT WILL HAVE TO GO TO A [facility] FOR REHAB. PT WAS DECLINED WATER PIPE INSTALLER CARE PLACEMENT AT [facility]; PT AND FAMILY DECLINE TO HAVE FURTHER REFERRALS SENT OUT. FAMILY IS TRYING TO SECURE FINANCIAL ASSISTANCE FOR REHAB SERVICES THROUGH [facility]. CM TO CONTINUE TO FOLLOW AND ASSIST. Sandor Butt CASE MANAGEMENT DCP- Discharge Planning Updated by [id number]: Sandor Butt on 06/04/19 11:[address] Patient Name: TROY HAYWOOD Encounter No: [id number] : 1955 Primary Insurance: [place]ID [place] Anticipated DC Date: 06-02-2019 Planned Disposition: Nursing Facility [facility] Cert External Planned Provider: WAITING FAMILY DECISION DCP follow-up note: CM RECEIVED CALL FROM ANNIE OF [facility] WHO ADVISED CM THAT PT HAS BEEN FIANCIALLY DENIED FOR PLACEMENT. CM SPOKE TO PT IN ROOM WHO ADVISED THAT SHE UNDERSTOOD THEY WERE JUST GOING TO LEAVE HER LAYING IN BED FOR A MONTH AND NOT GIVE HER ANY REHAB SERVICES. CM EXPLAINED THAT MEDICAID DOES NOT PAY FOR REHAB SERVICES, ONLY HALF-WAY CARE AND PT WOULD RECEIVE WHAT THEY CALL "RESTORATIVE CARE" FROM STAFF AT ANY [facility], NOT THERAPY SERVICES. PT STATES SHE IS NOW ABLE TO STAND UP WITH THERAPY HERE. CM EXPLAINED THAT PT IS GETTING 8 TO 16 MINUTES OF THERAPY PER DAY AND THAT ALTHOUGH CM WAS HAPPY WITH PROGRESSION, PT IS MEDICALLY STABLE TO LEAVE THE HOSPITAL AND THAT SHE WOULD RECEIVE MORE THERAPY AT HOME WITH HOME HEALTH THAN IN THIS ACUTE HOSPITAL SETTING. PT STATES SHE IS NOT SURE WHAT HAPPENED, THAT CHEPE IS TAKING CARE OF THIS FOR HER AND THAT CHEPE WILL BE TO THE HOSPITAL IN A LITTLE WHILE TO SPEAK TO CM; PT BELIVES THAT CHEPE IS AGAIN WORKING ON TRYING TO GET TREY REHAB CARE THROUGH THE [facility]. PT HAS BEEN FINANCIALLY DECLINED FOR HALF-WAY CARE PLACEMENT BY [facility]. PT DEFERRING PLANNING TO HER DAUGHTER, CHEPE. CM WAITING FAMILY TO ARRIVE TO DISCUSS FURTHER DISCHARGE PLANNING. Sandor Butt, CASE MANAGEMENT DCP- Discharge Planning Updated by [id number]: Sandor Butt on 06/03/19 7:[address] Patient Name: TROY HAYWOOD Encounter No: [id number] : 1955 Primary Insurance: [place]ID [place] Anticipated DC Date: 06-02-2019 Planned Disposition: Nursing Facility [facility] Cert External Planned Provider: [facility], HALF-WAY CARE MEDICAID BED DISCHARGE PLANNING NOTE: CM FAXED REFERRAL UPDATE TO [facility] AT [phone]. CM WAITING ADMISSION DETERMINATION FROM [facility] FOR WATER PIPE INSTALLER CARE. WAITING FAMILY TO PROVIDE FINANCIAL INFORMATION FOR WATER PIPE INSTALLER CARE MEDICAID APPLICATION TO FACILITY. Sandor Butt CASE MANAGEMENT DCP- Discharge Planning Updated by [id number]: Sandor Butt on 06/02/19 3:[address] Patient Name: TROY HAYWOOD Encounter No: [id number] : 1955 Primary Insurance: [place]ID [place] Anticipated DC Date: 06-02-2019 Planned Disposition: Nursing Facility [facility] Cert External Planned Provider: [facility], WATER PIPE INSTALLER [facility] MEDICAID BED DCP follow-up note: CM FAXED REFERRAL UPDATE TO [facility] AT [phone]. CM WAITING ADMISSION DETERMINATION FROM [facility] FOR HALF-WAY CARE. Sandor Butt, CASE MANAGEMENT Appended by Sandor Butt on 06/02/2019 16:50 BURR PICKER: CM RECEIVED CALL FROM LUIS OF [facility], , THEY RECEIVED THE UPDATE BY FAX AND WILL CONTACT FAMILY REGARDING FINANCIALS. [facility] REPORTS THEY ARE STILL WAITING ON NURSING TO ACCEPT FOR WATER PIPE INSTALLER CARE AND WILL ALSO NEED FINANCIAL CLEARANCE TO ENTER THE FACILITY. CM WAITING ADMISSION DETERMINATION FROM [facility] FOR WATER PIPE INSTALLER CARE. [facility] CONTACTING FAMILY TO ASSIST WITH FINANCIAL INFORMATION FOR HALF-WAY CARE MEDICAID APPLICATION. Sandor Butt CASE MANAGEMENT DCP- Discharge Planning Updated by [id number]: Sandor Butt on 06/01/19 4:[address] Patient Name: TROY HAYWOOD Encounter No: [id number] : 1955 Primary Insurance: [place]ID [place] Anticipated DC Date: 06-02-2019 Planned Disposition: Nursing Facility [facility] Cert External Planned Provider: [facility] WATER PIPE INSTALLER CARE MEDICAID BED DCP follow-up note: CM MET WITH PT AND DAUGHTER [place]ON, WHO HAS MADE IT FROM [employer]. UPDATE PROVIDED. CM CALLED [facility] [place] INFORMED CM THAT REFERRAL FROM AND [facility] WAS RECEIVED, STAFF IN MEETING TODAY AND THEY WILL FINISH ADMISSION REVIEW TOMORROW, 06-02-19. CM NOTIFIED PT AND DAUGHTER IN ROOM. CM WAITING ADMISSION DETERMINATION FROM [facility] FOR HALF-WAY CARE. Sandor Butt CASE MANAGEMENT DCP- Discharge Planning Updated by [id number]: Sandor Butt on 05/31/19 3:[address] Patient Name: TROY HAYWOOD Encounter No: [id number] : 1955 Primary Insurance: [place]ID [place] Anticipated DC Date: 06-01-2019 Planned Disposition: Nursing Facility [facility] Cert External Planned Provider: [facility], WATER PIPE INSTALLER CARE MEDICAID BED DCP follow-up note: AFTER SEVERAL VISITS WITH PT IN ROOM, PHONE CALLS WITH DAUGHTERS, [facility] AND [facility], PT DECIDED TO CONSENT TO 30 DAYS OF WATER PIPE INSTALLER CARE AT [facility] AFTER PT'S DAUGTHERS, WITH AIDE OF [facility], LOCATED [facility] WHO WILL CONSIDER PT FOR CARE. PT SIGNED CHOICE. CM FAXED REFERRAL INFORMATION TO [facility] AT [phone]. CM WAITING ADMISSION DETERMINATION FROM [facility] FOR HALF-WAY CARE. Sandor Butt, CASE MANAGEMENT DCP- Discharge Planning Updated by [id number]: Sandor Butt on 05/28/19 3:[address] Patient Name: TROY HAYWOOD Encounter No: [id number] : 1955 Primary Insurance: [place]ID [place] Anticipated DC Date: 06-02-2019 Planned Disposition: Home with Home Health External Planned Provider: [facility] DCP follow-up note: CM RECEIVED CALL FROM PT'S DAUGHTER, CHEPE, WHO VERIFIED THAT SHE WILL COME NEXT WEEK TO STAY WITH PT FOR TWO OR THREE WEEKS TO CARE FOR PT AT HOME. CHEPE WILL DISCUSS WITH HER MOTHER THAT SHE WILL HAVE TO BE ABLE TO STAND AND TRANSFER FOR CHEPE TO CARE FOR HER. CM REVIEWED THERAPY NOTES TO PRESENT. 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 PT HAS BEDSIDE COMMODE AND WHEELCHAIR AT HOME. CHEPE REPORTS NEED OF [facility]. CHEPE WILL DISCUSS WITH PT AND TRY TO MOTIVATE HER TO MEET THERAPY GOALS PRIOR TO ARRIVAL ON NEXT FRIDAY OR FRIDAY. PT'S DAUGHTER PLANS TO TAKE PT HOME NEXT FRIDAY OR FRIDAY, THEY WILL NEED [facility], DENIES FURTHER NEEDS. CM TO FOLLOW AND ASSIST NEEDED. Sandor Butt CASE MANAGEMENT DCP- Discharge Planning Updated by [id number]: Sandor Butt on 05/28/19 2:[address] Patient Name: TROY HAYWOOD Encounter No: [id number] : 1955 Primary Insurance: MED[place]ID [place] Anticipated DC Date: Planned Disposition: Nursing Facility YUN Cert External Planned Provider: TO BE DETERMINED DCP follow-up note: CM SPOKE TO [facility], SHE INFORMED CM THAT UPDATES HAVE BEEN RECEIVED, PT IS NOT MAKING ENOUGH PROGRESS WITH THERAPY THAT THEY DO NOT BELIEVE THAT PT WILL BE ABLE TO ACHIEVE THERAPY GOALS IN THE REMAINING 10 DAYS OF ACUTE DAYS THAT PT HAS REMAINING. CM NOTIFIED PT AND PROVIDED PT WITH NURSING FACILITY LISTING OF ALL AVAILABLE FACILITIES WITHIN [address] [place]. PT WILL SPEAK TO HER DAUGHTER AND NOTIFY CM OF HER CHOICES. CM CALLED [facility] SALGADO, , TWICE; AUTOMATED MESSAGE INFORMED CM THAT THE NUMBER WAS RESTRICTED OR CURRENTLY UNAVAILABLE. CM WAITING PT AND FAMILY TO PROVIDE NURSING FACILITY CHOICES FOR WATER PIPE INSTALLER CARE. Sandor Butt, CASE MANAGEMENT Appended by Sandor Butt on 05/28/2019 12:07 CDT: CM SPOKE TO PT IN ROOM, NOTIFIED PT THAT CM TRIED AND COULD NOT REACH DAUGHTER HOUSTON VIA PHONE. PT REPORTS SHE SPOKE TO [facility]STON WHO TOLD HER THAT [facility] WILL NOT TAKE HER DUE TO WEIGHT; PT'S DAUGHTER TOLD PT THAT [facility] WILL NOT TAKE HER. PT REPORTS THERE IS ONE IN [place] THAT MIGHT CONSIDER HER. CM OFFERED CHOICE FORM FOR SIGNATURE SO THAT CM COULD SEND REFERRALS AND BEGIN CALLING TO FIND PLACEMENT. PT REFUSED AND STATES SHE HAS A DAUGHTER, CHEPE, WHO IS A REGISTERED NURSE, THAT MAY BE COMING TO TAKE CARE OF PT AT HOME. PT'S DAUGHTER HOUSTON IS CALLING DAUGHTER CHEPE TO DISCUSS THE OPTION. PT STATES SHE WILL LET CM KNOW THE OUTCOME AND IF SHE WANTS CM TO EXPLORE [facility] CARE FOR HER. CM WAITING PT AND FAMILY TO PROVIDE NURSING FACILITY CHOICES AND FOR PT TO SIGN CONSENT FOR [facility] PLACEMENT. PT IS NOW HOPEFUL THAT HER DAUGHTER WHO IS A REGISTERED NURSE WILL COME AND STAY WITH PT AND TAKE CARE OF HER AT HOME. SANDOR BUTT, CASE MANAGEMENT Appended by Sandor Butt on 05/28/2019 14:27 CDT: CM RECEIVED MESSAGE THAT PT WANTS TO SEE CM. CM MET WITH PT IN ROOM WHO INFORMED CM THAT SHE HIS NOT GOING TO A [facility], THAT HER DAUGHTER, CHEPE, WHO IS A NURSE, WILL BE HERE NEXT FRIDAY TO TAKE HER HOME AND WILL TAKE CARE OF PT AT HOME. PT ASKED FOR [facility]. CM DISCUSSED POSSIBLE NEED OF DEBORAH LIFT AND ASKED ABOUT ADDITIONAL EQUIPMENT. PT THINKS BY NEXT WEEK, SHE WILL BE ABLE TO TRANSFER WITHOUT AIDE OF LIFT DEVICE. CM NOTIFIED DR. FREEDMAN WHO INFORMED CM THAT HE WILL ORDER BLOOD GAS ON FRIDAY TO DETERMINE RESPIRATORY DISCHARGE NEEDS AT THAT TIME. PT HAS SIGNED RIGHT OF CHOICE FOR [facility] ALREADY. PT REPORTS HER DAUGHTER, WHO IS A REGISTERED NURSE, WILL BE HERE FRIDAY OF NEXT WEEK TO TAKE CARE OF PT AT HOME. PT PLANS TO DISCHARGE HOME WITH FAMILY AND [facility]. CM TO FOLLOW AND ASSIST NEEDED. ROSANNA MONTAÑO DCP- Discharge Planning Updated by [id number]: Sandor Butt on 05/28/19 7:[address] Patient Name: TROY HAYWOOD Encounter No: [id number] : 1955 Primary Insurance: MEDICAID [place] Anticipated DC Date: Planned Disposition: Inpatient Rehab External Planned Provider: [facility] DCP follow-up note: CM FAXED REFERRAL UPDATE TO [facility] AT [phone]. CM WAITING ADMISSION DETERMINATION FROM [facility] IN [place]. ROSANNA Montaño DCP- Discharge Planning Updated by [id number]: Sandor Butt on 05/27/19 2:[address] Patient Name: TROY HAYWOOD Encounter No: [id number] : 1955 Primary Insurance: [place]ID [place] Anticipated DC Date: Planned Disposition: Inpatient Rehab External Planned Provider: [facility] DCP follow-up note: CM FAXED REFERRAL UPDATE TO [facility] AT [phone]. CM WAITING ADMISSION DETERMINATION FROM [facility] IN [place]. ROSANNA Montaño MANAGEMENT Appended by Sandor Butt on 05/27/2019 14:41 CDT: CM CALLED [facility], , LEFT MESSAGE ASKING FOR UPDATE ON REFERRAL AND TO KNOW IF THEY ARE STILL CONSIDERING PT FOR REHAB. CM WAITING ADMISSION DETERMINATION FROM [facility] IN [place]. ROSANNA Montaño DCP- Discharge Planning Updated by [id number]: Jesica Cartagena on 05/26/19 4:[address] Patient requested Trapeze bar to allow her to sit up in hospital bed. CM spoke Dr. Lawson and obtained approval for Trapeze bar. CM notified Radha in materials management of request for Trapeze bar. CM completed and gave Radha the order form for the Trapeze bar. Trapeze bar will be delivered. CM notified patient's CM, Christiano Daquan, on status of Trapeze bar. DCP- Discharge Planning Updated by [id number]: Sandor Buttswell on 05/26/19 3:[address] Patient Name: TROY HAYWOOD Encounter No: [id number] : 1955 Primary Insurance: MEDICAID [facility] Date: Planned Disposition: Inpatient Rehab External Planned Provider: [facility] DCP follow-up note: CHRISTOPHER SPOKE TO PT'S DAUGHTER VIA PHONE, HOUSTON GERMAINBLOOD, . CHRISTOPHER OBTAINED PERMISSION FROM PT TO DISCUSS CARE, TREATMENT AND DISCHARGE PLANNING WITH HOUSTON. HOUSTON INFORMED CHRISTOPHER THAT PT WAS IN REHAB AT [facility] LAST YEAR AND THEY WANT REFERRED TO [facility] AGAIN. CHRISTOPHER DISCUSSED PT'S VERY LOW LEVEL OF PHYSICAL CONDITIONING. PT'S DAUGHTER FEELS THAT PT CAN PARTICIPATE WITH THERAPY WITH GOAL TO RETURN HOME PREVIOUS WITH ABILITY TO TRANSFER TO ELECTRIC SCOOTER AND HOME HEALTH FOR CONTINUED HOME SERVICES. HOUSTON VERIFIED THAT PT HAS NO ADULTS ABLE TO LIVE WITH AND ASSIST PT AT HOME AT THIS TIME. [facility]STON ASKED ABOUT [facility] THAT MAY TAKE PT AT NO COSTS DUE TO INCOME. CHRISTOPHER INFORMED HOUSTON THAT CHRISTOPHER WAS NOT FAMILIAR WITH ANY OF THESE PROGRAMS. HOUSTON WOULD LIKE TO HAVE PT EVALUATED FOR REHAB AT [facility] PRIOR TO ANY CONSIDERATION OF [facility] PLACEMENT PT WILL NOT GET THERAPY THERE. CHRISTOPHER SPOKE TO PT WHO IS IN AGREEMENT WITH PLAN. CHRISTOPHER CALLED [facility], , NOTIFIED OF REHAB REQUEST; PT HAS ONLY 24 ACUTE DAYS THAT STARTED IN JANUARY, IT DEPENDS ON HOW MANY HAVE BEEN ALREADY USED, PT'S CONDITION AND NEEDS THAT WOULD HAVE TO BE MET IN THE REMAINING DAYS THAT PT HAS TO USE FOR REHAB . CHRISTOPHER FAXED REFERRALINFORMATION TO [facility] WITH CURRENT MAR AT [phone]. CM WAITING ADMISSION DETERMINATION FROM [facility] IN [place]. Sandor Butt, CASE MANAGEMENT Appended by Sandor Butt on 05/26/2019 15:24 CDT: CM MET WITH PT, GRANDDAUGHTER, DAUGHTER HOUSTON VIA PHONE WITH CM DECOMMISSIONING WELL SITE MANAGER, UNIT NURSE SHOOTER HELPER, REPIRATORY THERAPIST AND DECOMMISSIONING WELL SITE MANAGER OF THERAPY SERVICES REGARDING DISCHARGE PLANNING. CONCERNS OF PT'S PLAN TO GO HOME IN CURRENT CONDITION DISCUSSED. PT AND DAUGHTER HAVE ALREADY ASKED FOR REFERRAL TO [facility], CM HAS SENT IT AND WAITING DETERMINATION. PLAN "B" WAS AGREED TO BE NURSING FACILITY IF NOT ACCEPTED TO [facility] AND THAT CM WOULD ATTEMPT TO FIND ONE THAT MAY DONATE REHAB SERVICES. PT'S DAUGHTER IS RESEARCHING [employer] FUNDING FROM [employer] FOR REHAB SERVICES. CM WAITING ADMISSION DETERMINATION FROM [facility] IN [place]. Sandor Butt, CASE MANAGEMENT DCP- Discharge Planning Updated by [id number]: Sandor Butt on 05/25/19 2:[address] Patient Name: TROY HAYWOOD Encounter No: [id number] : 1955 Primary Insurance: MEDICAID [facility] Date: Planned Disposition: Home HEALTH External Planned Provider: [facility] [employer] [address], VISITING NURSES [facility] follow-up note: CM MET WITH PT IN ROOM TO DISCUSS DISCHARGE NEEDS AND PLANNING. CM DISCUSSED AVAILABILITY OF HOME HEALTH, REHAB SERVICES AND MEDICAL EQUIPMENT. PT REFUSES LONGTERM FACILITY PLACEMENT. PT STATES PLAN TO RETURN HOME. 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 PT WAS ABLE TO AMBULATE SMALL DISTANCES AND TRANSFER SELF FROM BED TO ELECTRIC WHEELCHAIR AT HOME. PT THINKS SHE IS GOING TO BE ABLE TO TRANSFER SELF TO GO BACK HOME. PT WANTS HOME HEALTH RESUMED TO GO HOME. CM EXPRESSED CONCERN OF PT'S CURRENT LEVEL OF FUNCTIONING AND RETURNING HOME. PT DENIES HAVING FRIENDS OR FAMILY TO ASSIST WITH HER CARE AT HOME BUT IS NOT GOING TO A [facility]. PT THINKS SHE WILL NEED AN AMBULANCE FOR TRANSPORT HOME HER ELECTRIC WHEELCHAIR IS THERE. CM EXPLAINED TO PT THAT SHE WILL NEED TO DEMONSTRATE WITH THERAPY THE ABILITY TO TRANSFER AND SIT IN CHAIR FOR DISCHARGE. PT STATED UNDRESTANDING. CHOICE FOR [facility] AGENCY ON AGING VISITING NURSES HOME HEALTH SIGNED. 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 PT REFUSED NURSING FACILITY PLACEMENT. PT WILL NEED TO DEMONSTRATE ABILITY TO TRANSFER AND SIT IN CHAIR FOR DISCHARGE SHE HAS ELECTRIC WHEELCHAIR AT HOME. CM TO ARRANGE HOME HEALTH RESUMPTION WITH [facility] ON AGING VISITING NURSES AGENCY IN [place] FOR DISCHARGE HOME. CM TO CONTINUE TO FOLLOW AND ASSIST NEEDED. Sandor Butt, CASE MANAGEMENT DCP- Discharge Planning Updated by [id number]: Aleisha Monroe on 05/19/19 7:[address] Patient Name: TROY HAYWOOD Admission Status: ER Accout number: [id number] Admission Date: 05-14-2019 : 1955 Admission Diagnosis: Attending: FABIO PINEDA Current LOS: 5 Anticipated DC Date: Planned Disposition: Home or Self Care Primary Insurance: MEDICAID [place] Discharge Planning Comments: CM met with patient and daughter to complete initial dc planning assessment. Patient recently extubated earlier today. CM educated patient on the CM role and verbal consent given by patient to complete assessment. Patient lives at home with her two young grand-daughters where she is independent with her care. At discharge patient plans to return home and feels this is a safe discharge. CM discussed availability of home health, rehab services, and medical equipment. Patient has Home 02 and HH with unknown providers. CM will f/u with patient @ later date to see if she is able to give providers. Patient denied known discharge needs at this time. CM will continue to follow and will assist as needed with dc plans/needs. Machine Setter And Repairer: Aleisha Monroe DCPIA - Discharge Planning Initial Assessment Updated by [id number]: Sandor Butt on 05/28/19 9:36 am * How many steps to enter\\exit or inside your home? * PCP uncertain ? * Pharmacy [facility] * Preadmission Environment Home with Family * ADLs Independent * Other Equipment HOME 02, WALKER, SCOOTER, BSC, SC * List name and contact numbers for known caregivers / representatives who currently or will assist patient after discharge: CHEPE SUN - DAUGHTER- [phone] HOUSTON SALGADO, DTR - [phone] * Verbal permission to speak to the caregivers and representatives has been obtained from the patient. Yes * Community resources currently utilized Home Health * Please name any agencies selected above. [facility] * Additional services required to return to the preadmission environment? No * Can the patient safely return to the preadmission environment? Yes * Has this patient been hospitalized within the prior 30 days at any hospital? No Coverage Notice Reviewer: NAYLA Butt Notice Issued Date-Time: 05/25/2019 14:05 Notice Type: Patient Choice Letter Notice Delivered To: Patient Relationship to Patient: Chemical Maker Name: Delivery Method: HAND - Hand Delivered Marry Days: Prior Verbal Notification: Recipient Understood Notice: Yes Recipient Signature: Yes Med Rec Note Co-signed by Attending: Coverage Notice Comment: [facility]- VISITING NURSES [facility] Reviewer: NAYLA Butt Notice Issued Date-Time: 05/31/2019 14:50 Notice Type: Patient Choice Letter Notice Delivered To: Patient Relationship to Patient: Chemical Maker Name: Delivery Method: HAND - Hand Delivered Marry Days: Prior Verbal Notification: Recipient Understood Notice: Yes Recipient Signature: Yes Med Rec Note Co-signed by Attending: Coverage Notice Comment: [facility] Reviewer: NAYLA Butt Notice Issued Date-Time: 06/09/2019 9:55 Notice Type: Patient Choice Letter Notice Delivered To: Patient Relationship to Patient: Chemical Maker Name: Delivery Method: HAND - Hand Delivered Marry Days: Prior Verbal Notification: Recipient Understood Notice: Yes Recipient Signature: Yes Med Rec Note Co-signed by Attending: Coverage Notice Comment: [facility] OR ANY ACCEPTING LONGTERM FACLITY Reviewer: NAYLA Butt Notice Issued Date-Time: 06/10/2019 16:25 Notice Type: Patient Choice Letter Notice Delivered To: Patient Relationship to Patient: Chemical Maker Name: Delivery Method: HAND - Hand Delivered Marry Days: Prior Verbal Notification: Recipient Understood Notice: Yes Recipient Signature: Yes Med Rec Note Co-signed by Attending: Coverage Notice Comment: [facility] Reviewer: NAYLA Butt Notice Issued Date-Time: 06/17/2019 13:55 Notice Type: Patient Choice Letter Notice Delivered To: Patient Relationship to Patient: Chemical Maker Name: Delivery Method: HAND - Hand Delivered Marry Days: Prior Verbal Notification: Recipient Understood Notice: Yes Recipient Signature: Yes Med Rec Note Co-signed by Attending: Coverage Notice Comment: ANY ACCEPTING LONGTERM FACILITY Reviewer: NAYLA Butt Notice Issued Date-Time: 06/18/2019 14:16 Notice Type: Patient Choice Letter Notice Delivered To: Patient Relationship to Patient: Chemical Maker Name: Delivery Method: HAND - Hand Delivered Marry Days: Prior Verbal Notification: Recipient Understood Notice: Yes Recipient Signature: Yes Med Rec Note Co-signed by Attending: Coverage Notice Comment: [facility] PATIENT Last DP export: 06/21/19 3:05 Patient Name: TROY HAYWOOD Page [id number] at 1619 All edits/amendments must be made on the electronic document DICTATION DATE: 06/21/191618 PRESSROOM FOREMAN: MISHEL 06/21/191618 RPT#: [id number] DC DATE: STATUS: ADM IN [facility] [address] [place] [address] END OF REPORT
--- NOTE | 2019-06-21 16:27 | MORECARE ---
CASE MANAGEMENT DISCHARGE SUMMARY PATIENT: TROY HAYWOOD UNIT: [id number] ADM DATE: 05/14/19 AGE: 64 : 57 SEX: F ROOM/BED: D.2140 AUTHOR: DAYDAY,DOC PHYSICIAN: REFERRING PHYSICIAN: FABIO PINEDA MD DATE OF SERVICE: 06/21/19 Discharge Plan Patient Name: TROY HAYWOOD Facility: [facility]:[place] : 1955 Planned Disposition: Nursing Facility YUN Cert Anticipated Discharge Date: 06/22/19 Discharge Date: Expected LOS: 39 Initial Reviewer: [id number] Initial Review Date: 05/19/2019 Generated: 06/21/19 5:26 pm Comments DCP- Discharge Planning Updated by [id number]: Sandor Butt on 06/21/19 3:[address] Patient Name: TROY HAYWOOD Encounter No: [id number] : 1955 Primary Insurance: MEDICAID [place] Anticipated DC Date: 06-22-2019 Planned Disposition: Nursing Facility YUN Cert External Planned Provider: [facility], DIE FORGER CARE MEDICAID BED DCP follow-up note: CM RECEIVED CALL FROM BARBARA OF [facility], THEY HAVE ALL EQUIPMENT AND CAN ACCEPT PT TOMORROW, 06-21-19. CM NOTIFIED PT. PT WILLING FOR PLACEMENT, WANTS CM TO CHECK WITH [facility] AND IF SHE CANNOT GET PLACEMENT IN [place], THEN SHE WILL GO TO [place]. CM CALLED AND SPOKE TO OJ OF [facility], THEY ARE NOT ABLE TO TAKE PT FOR PLACEMENT. CM RECEIVED MESSAGE FROM [facility], SHE HAS NOT HOMES IN [place] TO ACCEPT PT AT THIS TIME. CM NOTIFIED CHEPE SUN - DAUGHTER- [phone]. CHEPE IN AGREEMENT WITH PLACEMENT IN [place] AND REPORTS IT IS 2 1/2 HOURS FROM [place]. CM NOTIFIED PT WHO IS IN AGREEMENT WITH PLAN. TOBY CANNON AND DR. LONG NOTIFIED. CM FAXED UPDATE TO [facility], . CM PROVIDED PT WITH FACILITY ADDRESS AND PHONE NUMBER. FOR DISCHARGE 06-22-19. FAX DISCHARGE INFORMATION TO [phone]. NURSE REPORT TO BE CALLED TO [facility], . PT TO TRANSPORT VIA AMBULANCE. [facility], [address], [place] [address]. Sandor Butt, CASE MANAGEMENT DCP- Discharge Planning Updated by [id number]: Sandor Butt on 06/18/19 2:[address] Patient Name: TROY HAYWOOD Encounter No: [id number] : 1955 Primary Insurance: MED[place]ID [place] Anticipated DC Date: 06-11-2019 Planned Disposition: Nursing Facility YUN Cert External Planned Provider: [facility], DIE FORGER CARE MEDICAID BED DCP follow-up note: CM RECEIVED CALL FROM [facility] [employer], , SPOKE TO [place] WHO INFORMED CM THEY ARE CONSIDERING PT FOR TREY THERAPY WITH THE DETENTION CARE PLACEMENT, REQUESTED FINANDICAL INFORMATION. CM FAXED FINANCIAL INFORMATION TO [facility] AT [phone]. CHAR KISER, . MET WITH PT AND ASSISTED WITH APPLICATION FOR "[employer]" MEDICARE AND IS STILL WORKING TO GET PT INTO ONE OF HER NURSING HOMES FOR THERAPY SERVICES. CM RECEIVED CALL FROM [facility], SHE HAS A FACILITY IN [facility] THAT IS A NON PROFIT AND THEY ARE CONSIDERING PT FOR TREY REHAB SERVICES. PT HAS BEEN DECLINED BY [facility] INPATIENT REHAB (TREY CARE), [facility] RE[facility]AB ([facility]), [facility] INPATIENT REHAB (PRIVATE PAY), [facility] AND [facility]. - CM WAITING ADMISSION DETERMINATION FROM [facility] FOR DETENTION CARE PLACEMENT IN ONE OF HER AFFILIATED NURSING HOMES. - CM WAITING ADMISSION DETERMINATION FROM [facility] FOR DIE FORGER CARE. - CM WAITING DETERMINATION FROM TROY MIMS OF [facility] FOR DETENTION CARE PLACEMENT IN ONE OF HER AFFILIATED [facility] HOMES. Sandor Butt, CASE MANAGEMENT Appended by Sandor Butt on 06/18/2019 15:46 APPLICATIONS SUPPORT ENGINEER: CM RECEIVED ORDER FOR TRILOGY, SPOKE TO PT WHO REQUESTED [facility] IN [facility] HER OXGYEN IS FROM THEM, IF NOT, [facility] OR [facility]. CM CALLED [facility] IN [facility], SPOKE TO TESS WHO REFERRED CM TO [facility] IN [place]. CM CALLED [facility] IN [place], , SPOKE TO MAHESH WHO INFORMED CM THAT MEDICAID WOULD COVER TRILOGY, THEY CAN PROCESS THE ORDER. CM FAXED ORDER TO [facility] AT [phone]. - CM WAITING TRILOGY ORDER PROCESSING AND HOSPITAL DELIVERY OF TRILOGY BY [facility]. - CM WAITING ADMISSION DETERMINATION FROM [facility] FOR DETENTION CARE PLACEMENT IN ONE OF HER AFFILIATED NURSING HOMES. - CM WAITING ADMISSION DETERMINATION FROM [facility] FOR DIE FORGER CARE. - CM WAITING DETERMINATION FROM TROY MIMS OF [facility] FOR DETENTION CARE PLACEMENT IN ONE OF HER AFFILIATED NURSING HOMES. Sandor Butt, CASE MANAGEMENT DCP- Discharge Planning Updated by [id number]: Sandor Butt on 06/17/19 2:[address] Patient Name: TROY HAYWOOD Encounter No: [id number] : 1955 Primary Insurance: MEDICAID [facility] DC Date: 06-11-2019 Planned Disposition: Nursing Facility YUN Cert External Planned Provider: FIRST ACCEPTING FACILITY, DETENTION CARE MEDICAID BED DCP follow-up note: CM RECEIVED PHONE MESSAGE FROM MITCH GILBERT [facility] INPATIENT REHAB, HE AND THE DOCTOR HAVE REVIEWED REFERRAL AND DECLINED PT. THEY DO NOT FEEL PT HAS MADE SIGNIFICANT PROGESS AND HAS NOT DEMONSTRATED ABILITY TO DO THREE HOURS OF PROGRESSIVE THERAPY. CM MET WITH PT IN ROOM, DISCUSSED DENIAL FOR INPATIENT REHAB BY [facility], DISCUSSED DIE FORGER CARE FDC OPTIONS. PT DID SIGN CONSENT FOR ANY ALF FACILITY; PT ASKED CM TO KEEP PT CLOSE TO HOME POSSIBLE. CM EXPLAINED THAT A STATEWIDE SEARCH WILL BE DONE AND THAT ALL EFFORTS WILL BE MADE TO KEEP PT CLOSE TO [place] AND [place] POSSIBLE REQUESTED. CM CALLED PT'S DAUGHTER CHEPE AT PT'S REQUEST, NOTIFIED HER OF ABOVE INFORMATION. CHEPE AGREES THAT PT IS STILL NOT SAFE TO RETURN HOME IN HER CURRENT CONDITION AND AGREES WITH FDC PLACEMENT FOR RESTORATIVE CARE. CM CALLED [facility], , SPOKE TO [place] WHO INFORMED CM THAT THEY DO BERIATRIC CARE. CM FAXED REFERRAL TO [facility] AT [phone]. CM FAXED REFERRAL UPDATE TO CHAR [facility], . CHAR INQUIRED ABOUT WHEN DID PT BEGIN RECEIVING SOCIAL SECURITY DISABILTY, PT STATES 15 YEARS AGO, INFORMATION PROVIDED TO CHAR. CM FAXED REFERRAL UPDATE TO [facility], . PT HAS BEEN DECLINED BY [facility]IENT RE[facility] ([facility]), [facility]), [facility] INPATIENT REHAB (PRIVATE PAY), [facility] AND [facility]. - CM WAITING ADMISSION DETERMINATION FROM CHAR [facility] FOR DETENTION CARE PLACEMENT IN ONE OF HER AFFILIATED NURSING HOMES. - CM WAITING ADMISSION DETERMINATION FROM [facility] FOR DETENTION CARE. - CM WAITING DETERMINATION FROM TROY MIMS [facility] FOR DETENTION CARE PLACEMENT IN ONE OF HER AFFILIATED NURSING HOMES. ROSANNA Montaño DCP- Discharge Planning Updated by [id number]: Sandor Butt on 06/17/19 8:[address] Patient Name: TROY HAYWOOD Encounter No: [id number] : 1955 Primary Insurance: MED[place]ID [place] Anticipated DC Date: 06-11-2019 Planned Disposition: Nursing Facility YUN Cert External Planned Provider: FIRST ACCEPTING FACILITY DCP follow-up note: CM ATTEMPTED TO EMAIL [employer] FOR UPDATE ON APPLICATION AT [email or web address]. THE EMAIL FAILED. CM FAXED REQUEST FOR UPDATE TO [employer] AT [phone] AND [phone]. - CM WAITING ADMISSION DETERMINATION FROM [facility] FOR DIE FORGER CARE PLACEMENT IN ONE OF HER AFFILIATED NURSING HOMES. - CM WAITING RETURN CALL FROM [facility] INPATIENT REHAB IN [place] REGARDING TREY REHAB. - CM WAITING DETERMINATION FROM TROY MIMS [facility] FOR DETENTION CARE PLACEMENT IN ONE OF HER AFFILIATED NURSING HOMES. Sandor Butt, CASE MANAGEMENT Sandor Butt DCP- Discharge Planning Updated by [id number]: Sandor Butt on 06/16/19 4:[address] Patient Name: TROY HAYWOOD Encounter No: [id number] : 1955 Primary Insurance: MED[place]ID [place] Anticipated DC Date: 06-11-2019 Planned Disposition: Nursing Facility YUN Cert External Planned Provider: FIRST ACCEPTING FACILITY DCP follow-up note: CM FAXED REFERRAL UPDATE TO TROY OF [facility] FOR DETENTION CARE PLACEMENT AT [phone]. CM FAXED REFERRAL [place] TO [facility] AT [phone]. CM FAXED UPDATE TO [facility] AT [phone] FOR DETENTION CARE PLACEMENT. - CM WAITING ADMISSION DETERMINATION FROM [facility] FOR DIE FORGER CARE PLACEMENT IN ONE OF HER AFFILIATED NURSING HOMES. - CM WAITING RETURN CALL FROM [facility] INPATIENT REHAB IN [place] REGARDING TREY REHAB. - CM WAITING DETERMINATION FROM TROY MIMS OF [facility] FOR DETENTION CARE PLACEMENT IN ONE OF HER AFFILIATED NURSING HOMES. Sandor Butt, CASE MANAGEMENT DCP- Discharge Planning Updated by [id number]: Sandor Butt on 06/15/19 3:[address] Patient Name: TROY HAYWOOD Encounter No: [id number] : 1955 Primary Insurance: MEDICAID [facility] DC Date: 06-11-2019 Planned Disposition: Nursing Facility YUN Cert External Planned Provider: FIRST ACCEPTING DCP follow-up note: CHRISTOPHER SENT MESSAGE TO TROY MIMS, , OF [facility] ASKING FOR DETENTION CARE PLACEMENT ASSISTANCE WITH REHAB IF POSSIBLE. CM FAXED REFERRAL TO TROY AT [phone]. CM CALLED [facility] RE[facility] IN [facility], , HE HAS NOT BEEN ABLE TO GET A DETERMINATION ON TREY AND CANNOT LOCATE THE PERSON IN CORPORATE WHO HAS PT'S TREY APPLICATION. HE WILL CONTINUE TO TRY TO LOCATE WHO IS PROCESSING THE APPLICATION HE HAS NOT SEEN IT OR HEARD ANY DETERMINATION. CHRISTOPHER FAXED REFERRAL [place] TO [facility] INPATIENT REH[facility] AT [phone]. M FAXED UPDATE TO CHAR KISER OF [facility] AT [phone]. CHAR INFORMED CM THAT SHE HAS NO BERIATRIC FDC BED YET BUT IS HOPEUL TO HAVE AN OPENING "SOON". ASKED BY PT'S DAUGHTER, CM CALLED AND SPOKE TO RUT, , OF [facility] AND REQUESTED PRIVATE PAY DOWN PAYMENT AND MONTHLY PAYMENT AMOUNTS FOR REHAB AT [facility]. CM FAXED REFERRAL TO [facility] AT [phone]. - CM WAITING ADMISSION DETERMINATION FROM [facility] FOR DETENTION CARE PLACEMENT IN ONE OF HER AFFILIATED NURSING HOMES. - CM WAITING RETURN CALL FROM [facility] INPATIENT REHAB IN [place] REGARDING TREY REHAB. - CM WAITING DETERMINATION FROM TROY MIMS [facility] FOR DIE FORGER CARE PLACEMENT IN ONE OF HER AFFILIATED NURSING HOMES. Sandor Butt, CASE MANAGEMENT Appended by Sandor Butt on 06/15/2019 16:28 APPLICATIONS SUPPORT ENGINEER: CM FAXED [facility] TREY APPLICATION TO [facility] INPATIENT REHAB IN [facility]. CM SPOKE TO TROY OF [facility] WHO EXPLAINED SHE IS CONTINUING TO LOOK FOR FDC PLACEMENT; THE OBSTACLE IS THE COSTS OF RENTING BIPAP AND OTHER BERIATRIC EQUIPMENT. CM SPOKE TO RUT OF [facility] INPATIENT REHAB, THEY WILL NOT CONSIDER PATIENT FOR REHAB ON PRIVATE PAY BASIS AND WOULD DENY PATIENT REGARDLESS DUE TO HER "ENTIRE SITUATION". CM NOTIFIED PT AND DAUGHTER IN ROOM OF PROGRESS AND LACK THEREOF. CM ASKED TO SEND REFERRALS TO OTHER NURSING FACILITIES, PT REFUSED STATING SHE WANTS TO WAIT FOR DEFINITE ANSWER FROM [facility] FOR TREY REHAB SERVICES. - CM WAITING ADMISSION DETERMINATION FROM [facility] FOR DIE FORGER CARE PLACEMENT IN ONE OF HER AFFILIATED NURSING HOMES. - CM WAITING RETURN CALL FROM [facility] INPATIENT REHAB IN [place] REGARDING TREY REHAB. - CM WAITING DETERMINATION FROM TROY MIMS [facility] FOR DIE FORGER CARE PLACEMENT IN ONE OF HER AFFILIATED NURSING HOMES. Sandor Butt, CASE MANAGEMENT DCP- Discharge Planning Updated by [id number]: Sandor Butt on 06/11/19 3:[address] Patient Name: TROY HAYWOOD Encounter No: [id number] : 1955 Primary Insurance: [place]ID [place] Anticipated DC Date: 06-11-2019 Planned Disposition: Nursing Facility YUN [facility] External Planned Provider: : DCP follow-up note: CM RECEIVED MESSAGE FROM TROY OF [facility], THEY WILL NOT ACCEPT PT. CM FAXED REFERRAL [place] TO [facility] INPATIENT REH[facility] AT [phone]. CM FAXED UPDATE TO [facility] AT [phone]. CHAR INFORMED CM THAT SHE ANTICIPATES A BERIATRIC FDC BED OPENING "SOON". CM NOTIFIED PT AND DAUGHTER OF PROGRESS / LACK THEREOF IN ROOM. - CM WAITING ADMISSION DETERMINATION FROM CHAR [facility] FOR DETENTION CARE PLACEMENT IN ONE OF HER AFFILIATED NURSING HOMES. - CM WAITING RETURN CALL FROM [facility] INPATIENT REHAB IN [place] REGARDING TREY REHAB. ROSANNA Montaño DCP- Discharge Planning Updated by [id number]: Sandor Butt on 06/10/19 3:[address] Patient Name: TROY HAYWOOD Encounter No: [id number] : 1955 Primary Insurance: MED[place]ID [place] Anticipated DC Date: 06-11-2019 Planned Disposition: Nursing Facility YUN Cert External Planned Provider: FIRST ACCEPTING FACILITY DCP follow-up note: - CM RECEIVED CALL FROM [facility] INPATIENT REH[facility], THEY HAVE NOT AVAILABILITY FOR TREY REHAB BED. CM RECEIVED CALL FROM MITCH OF [facility] IN [facility], THEY HAVE NOT RECEIVED TREY APPLICATION AND HAVE NO CURRENT BEDS BUT WOULD CONSIDER PT. CM RETURNED CALL TO MITCH AT [facility], , INFORMED THAT TREY [facility], TELEPHONE CONTACT [phone]. HETAL ASKED FOR REFERRAL TO BE SENT AND HE WILL SCREEN FOR ADMISSION. CM FAXED REFERRAL TO [facility] INPATIENT REH[facility] AT [phone]. CM NOTIFIED PT AND DAUGHTER OF PROGRESS IN ROOM. PT AND DAUGHTER ASKED FOR CM TO SEND REFERRAL TO [facility] IN [place]. CHOICE SIGNED. CM FAXED REFERRAL TO [facility]IA [facility] AT [phone]. - CM WAITING ADMISSION DETERMINATION FROM CHAR [facility] FOR DIE FORGER CARE PLACEMENT IN ONE OF HER AFFILIATED NURSING HOMES. - CM WAITING RETURN CALL FROM [facility] INPATIENT REHAB IN [place] REGARDING TREY REHAB. - CM WAITING ADMISSION DETERMINATION FROM [facility]F [facility]. ROSANNA Montaño DCP- Discharge Planning Updated by [id number]: Sandor Butt on 06/09/19 3:[address] Patient Name: TROY HAYWOOD Encounter No: [id number] : 1955 Primary Insurance: MED[place]ID [place] Anticipated DC Date: 06-10-2019 Planned Disposition: Nursing Facility YUN Cert External Planned Provider: FIRST ACCEPTING FACILITY DCP follow-up note: CM SPOKE TO PT AND DAUGHTER, CHEPE, THEY WILL LET CM SEEK FDC PLACEMENT FOR THEM TO CONSIDER BUT STILL DO NOT WANT DETENTION CARE IF THEY CAN OBTAIN REHAB THROUGH THE [facility]. DAUGHTER ADVISED SHE HAS CONFIRMED RECEIPT OF THE APPLICATION FAXED TO THE [facility] AND IS IN PROCESS OF REVIEW. DAUGHTER ASKED CM TO CHECK INTO REHAB'S THAT MAY HAVE [facility] AFFILIATION. CM CALLED [facility], , REQUESTED ASSISTANCE IN DIE FORGER CARE PLACEMENT WITH INTENT TO RETURN HOME. CHAR STATES THAT SHE MAY HAVE HOME'S WILL ACCEPT BARIATRIC PATIENT AND WILL ATTEMPT PLACEMENT. CHAR WILL MEET WITH PT LATER TODAY. CM FAXED REFERRAL TO [facility] AT [phone]. CM SPOKE TO TROY MIMS OF [facility], TROY INFORMED CM THAT SHE HAS NO HOMES IN HER GROUP THAT MAY ASSIST WITH PLACEMENT. CM CALLED [facility] INPATIENT [facility], WAS ADVISED BY RUT THAT THEY WILL NOT CONSIDER FOR TREY CARE, THEY ARE NOT AFFILIATED WITH [facility]. CM CALLED [facility], , SPOKE TO CHELO WHO INFORMED CM THAT THEY ARE NOT AFFILIATED WITH [facility] BUT WILL CONSIDER PT FOR TREY REHAB. CM FAXED REFERRAL TO [facility] AT [phone]. CM CALLED [facility] IN [place], , SPOKE TO DHEERAJ WHO REPORTS THEY HAVE NO OPEN REHAB BEDS AND HAVE NO PROJECTED DISCHARGES SOON. THEY DO NOT HAVE WEIGHT LIMITS. DHEERAJ DID NOT WANT REFERRAL FAXED, SHE WILL REPORT TO BREN WHO WILL [facility] REGARDING APPLICATION STATUS AND CALL CM TOMORROW, 06-10-19. CM NOTIFIED PT IN ROOM OF PROGRESS. PT STATES SHE MAY BE ABLE TO TRANSFER SELF AND GO HOME BEFORE CM FINDS REHAB FOR HER. - CM WAITING ADMISSION DETERMINATION FROM CHAR [facility] FOR DETENTION CARE PLACEMENT IN ONE OF HER AFFILIATED NURSING HOMES. - CM WAITING ADMISSION DETERMINATION FROM [facility] FOR TREY REHAB BED. - CM WAITING RETURN CALL FROM [facility] IN [place] REGARDING TREY REHAB. Sandor Butt CASE MANAGEMENT DCP- Discharge Planning Updated by [id number]: Sandor Butt on 06/04/19 4:[address] Patient Name: TROY HAYWOOD Encounter No: [id number] : 1955 Primary Insurance: MED[place]ID [place] Anticipated DC Date: 06-02-2019 Planned Disposition: Nursing Facility YUN Cert External Planned Provider: TO BE DETERMINED DCP follow-up note: CM SPOKE TO PT AND DAUGHTER CHEPE, IN ROOM. PT IS AND FOR PAST 10 YEARS, BUT NOT LEGALLY. THEY CANNOT QUALIFY FOR MEDICAID FOR DIE FORGER CARE DUE TO NOT HAVING SPOUSE FINANICAL INFORMATION. PT AND DAUGHTER BOTH STATE THAT THEY DO NOT WANT TO PUT PT INTO DIE FORGER FDC CARE WHERE SHE WILL JUST LAY IN THE BED. THEY DO NOT WANT FURTHER FDC REFERRALS FAXED OUT. CM DISCUSSED THAT PT IS STABLE FOR DISCHARGE MEDICALLY. PT'S DAUGHTER REPORTS PT IS NOT HAVING BOWEL MOVEMENTS AND THAT THE FECES COMING OUT IS COMING AROUND AN IMPACTION AND NO ONE IS ADDRESSING THIS. CM NOTIFIED TOBY THOMAS WHO PROVIDED ORDERS FOR MEDICATION TO TREAT CONDITION. BEDSIDE NURSE NOTIFIED. PT'S DAUGHTER PROVIDED CM WITH 77 PAGES AND ASKED CM TO FAX TO [facility] FOR FINANCIAL ASSISTANCE REGARDING REHAB SERVICES FOR PT. CM FAXED TO [facility] FINANCIAL ASSISTANCE PROGRAM AT [phone]. PT'S DAUGHTER ADVISED THAT IF APPROVED, PT WILL HAVE TO GO TO A [facility] CENTER FOR REHAB. PT WAS DECLINED DETENTION CARE PLACEMENT AT [facility]; PT AND FAMILY DECLINE TO HAVE FURTHER REFERRALS SENT OUT. FAMILY IS TRYING TO SECURE FINANCIAL ASSISTANCE FOR REHAB SERVICES THROUGH [facility]. CM TO CONTINUE TO FOLLOW AND ASSIST. Sandor Butt CASE MANAGEMENT DCP- Discharge Planning Updated by [id number]: Sandor Butt on 06/04/19 11:[address] Patient Name: TROY HAYWOOD Encounter No: [id number] : 1955 Primary Insurance: MED[place]ID [place] Anticipated DC Date: 06-02-2019 Planned Disposition: Nursing Facility YUN Cert External Planned Provider: WAITING FAMILY DECISION DCP follow-up note: CM RECEIVED CALL FROM [facility] WHO ADVISED CM THAT PT HAS BEEN FIANCIALLY DENIED FOR PLACEMENT. CM SPOKE TO PT IN ROOM WHO ADVISED THAT SHE UNDERSTOOD THEY WERE JUST GOING TO LEAVE HER LAYING IN BED FOR A MONTH AND NOT GIVE HER ANY REHAB SERVICES. CM EXPLAINED THAT MEDICAID DOES NOT PAY FOR REHAB SERVICES, ONLY DIE FORGER CARE AND PT WOULD RECEIVE WHAT THEY CALL "RESTORATIVE CARE" FROM STAFF AT ANY FDC, NOT THERAPY SERVICES. PT STATES SHE IS NOW ABLE TO STAND UP WITH THERAPY HERE. CM EXPLAINED THAT PT IS GETTING 8 TO 16 MINUTES OF THERAPY PER DAY AND THAT ALTHOUGH CM WAS HAPPY WITH PROGRESSION, PT IS MEDICALLY STABLE TO LEAVE THE HOSPITAL AND THAT SHE WOULD RECEIVE MORE THERAPY AT HOME WITH HOME HEALTH THAN IN THIS ACUTE HOSPITAL SETTING. PT STATES SHE IS NOT SURE WHAT HAPPENED, THAT CHEPE IS TAKING CARE OF THIS FOR HER AND THAT CHEPE WILL BE TO THE HOSPITAL IN A LITTLE WHILE TO SPEAK TO CM; PT BELIVES THAT CHEPE IS AGAIN WORKING ON TRYING TO GET TREY REHAB CARE THROUGH THE [facility]. PT HAS BEEN FINANCIALLY DECLINED FOR DETENTION CARE PLACEMENT BY [facility]. PT DEFERRING PLANNING TO HER DAUGHTER, CHEPE. CM WAITING FAMILY TO ARRIVE TO DISCUSS FURTHER DISCHARGE PLANNING. Sandor Butt CASE MANAGEMENT DCP- Discharge Planning Updated by [id number]: Sandor Butt on 06/03/19 7:[address] Patient Name: TROY HAYWOOD Encounter No: [id number] : 1955 Primary Insurance: MED[place]ID [place] Anticipated DC Date: 06-02-2019 Planned Disposition: Nursing Facility YUN Cert External Planned Provider: [facility], DIE FORGER CARE MEDICAID BED DISCHARGE PLANNING NOTE: CM FAXED REFERRAL UPDATE TO [facility] AT [phone]. CM WAITING ADMISSION DETERMINATION FROM [facility] FOR DETENTION CARE. WAITING FAMILY TO PROVIDE FINANCIAL INFORMATION FOR DETENTION CARE MEDICAID APPLICATION TO FACILITY. ROSANNA Montaño DCP- Discharge Planning Updated by [id number]: Sandor Butt on 06/02/19 3:[address] Patient Name: TROY HAYWOOD Encounter No: [id number] : 1955 Primary Insurance: MED[place]ID [place] Anticipated DC Date: 06-02-2019 Planned Disposition: Nursing Facility YUN Cert External [facility] DETENTION CARE MEDICAID BED DCP follow-up note: CM FAXED REFERRAL UPDATE TO [facility] AT [phone]. CM WAITING ADMISSION DETERMINATION FROM [facility] FOR DIE FORGER CARE. Sandor Butt, CASE MANAGEMENT Appended by Sandor Butt on 06/02/2019 16:50 APPLICATIONS SUPPORT ENGINEER: CM RECEIVED CALL FROM LUIS OF [facility], , THEY RECEIVED THE UPDATE BY FAX AND WILL CONTACT FAMILY REGARDING FINANCIALS. LUIS REPORTS THEY ARE STILL WAITING ON NURSING TO ACCEPT FOR DETENTION CARE AND WILL ALSO NEED FINANCIAL CLEARANCE TO ENTER THE FACILITY. CM WAITING ADMISSION DETERMINATION FROM [facility]. [facility] CONTACTING FAMILY TO ASSIST WITH FINANCIAL INFORMATION FOR DETENTION CARE MEDICAID APPLICATION. Sandor Butt CASE MANAGEMENT DCP- Discharge Planning Updated by [id number]: Sandor Butt on 06/01/19 4:[address] Patient Name: TROY HAYWOOD Encounter No: [id number] : 1955 Primary Insurance: MED[place]ID [place] Anticipated DC Date: 06-02-2019 Planned Disposition: Nursing Facility YUN Cert External Planned Provider: [facility], DETENTION [facility] MEDICAID BED DCP follow-up note: CM MET WITH PT AND DAUGHTER [place], WHO HAS MADE IT FROM [place]. UPDATE PROVIDED. CM CALLED [facility], DALE INFORMED CM THAT REFERRAL FROM AND [facility] WAS RECEIVED, STAFF IN MEETING TODAY AND THEY WILL FINISH ADMISSION REVIEW TOMORROW, 06-02-19. CM NOTIFIED PT AND DAUGHTER IN ROOM. CM WAITING ADMISSION DETERMINATION FROM [facility] FOR DIE FORGER CARE. Sandor Butt CASE MANAGEMENT DCP- Discharge Planning Updated by [id number]: Sandor Butt on 05/31/19 3:[address] Patient Name: TROY HAYWOOD Encounter No: [id number] : 1955 Primary Insurance: MEDICAID [place] Anticipated DC Date: 06-01-2019 Planned Disposition: Nursing Facility [place] [facility] External Planned Provider: [facility], [facility] MEDICAID BED DCP follow-up note: AFTER SEVERAL VISITS WITH PT IN ROOM, PHONE CALLS WITH DAUGHTERS, [employer] [facility], PT DECIDED TO CONSENT TO 30 DAYS OF DIE FORGER CARE AT [facility] AFTER PT'S DAUGTHERS, WITH AIDE OF [facility], LOCATED [facility] WHO WILL CONSIDER PT FOR CARE. PT SIGNED CHOICE. CM FAXED REFERRAL INFORMATION TO [facility] AT [phone]. CM WAITING ADMISSION DETERMINATION FROM [facility] FOR DIE FORGER CARE. Sandor Butt CASE MANAGEMENT DCP- Discharge Planning Updated by [id number]: Sandor Butt on 05/28/19 3:[address] Patient Name: TROY HAYWOOD Encounter No: [id number] : 1955 Primary Insurance: MEDICAID [place] Anticipated DC Date: 06-02-2019 Planned Disposition: Home with Home Health External Planned Provider: [facility] DCP follow-up note: CM RECEIVED CALL FROM PT'S DAUGHTER, CHEPE, WHO VERIFIED THAT SHE WILL COME NEXT WEEK TO STAY WITH PT FOR TWO OR THREE WEEKS TO CARE FOR PT AT HOME. CHEPE WILL DISCUSS WITH HER MOTHER THAT SHE WILL HAVE TO BE ABLE TO STAND AND TRANSFER FOR CHEPE TO CARE FOR HER. CM REVIEWED THERAPY NOTES TO PRESENT. 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 PT HAS BEDSIDE COMMODE AND WHEELCHAIR AT HOME. CHEPE REPORTS NEED OF [facility] RESUMPTION. CHEPE WILL DISCUSS WITH PT AND TRY TO MOTIVATE HER TO MEET THERAPY GOALS PRIOR TO ARRIVAL ON NEXT FRIDAY OR FRIDAY. PT'S DAUGHTER PLANS TO TAKE PT HOME NEXT FRIDAY OR FRIDAY, THEY WILL NEED [facility] RESUMPTION, DENIES FURTHER NEEDS. CM TO FOLLOW AND ASSIST NEEDED. Sandor Butt CASE MANAGEMENT DCP- Discharge Planning Updated by [id number]: Sandor Butt on 05/28/19 2:[address] Patient Name: TROY HAYWOOD Encounter No: [id number] : 1955 Primary Insurance: MEDICAID [place] Anticipated DC Date: Planned Disposition: Nursing Facility [facility] External Planned Provider: TO BE DETERMINED DCP follow-up note: CM SPOKE TO [facility], SHE INFORMED CM THAT UPDATES HAVE BEEN RECEIVED, PT IS NOT MAKING ENOUGH PROGRESS WITH THERAPY THAT THEY DO NOT BELIEVE THAT PT WILL BE ABLE TO ACHIEVE THERAPY GOALS IN THE REMAINING 10 DAYS OF ACUTE DAYS THAT PT HAS REMAINING. CM NOTIFIED PT AND PROVIDED PT WITH NURSING FACILITY LISTING OF ALL AVAILABLE FACILITIES WITHIN [address] [place]. PT WILL SPEAK TO HER DAUGHTER AND NOTIFY CM OF HER CHOICES. CM CALLED [facility] SALGAD[facility], , TWICE; AUTOMATED MESSAGE INFORMED CM THAT THE NUMBER WAS RESTRICTED OR CURRENTLY UNAVAILABLE. CM WAITING PT AND FAMILY TO PROVIDE NURSING FACILITY CHOICES FOR DETENTION CARE. Sandor Butt, CASE MANAGEMENT Appended by Sandor Butt on 05/28/2019 12:07 CDT: CM SPOKE TO PT IN ROOM, NOTIFIED PT THAT CM TRIED AND COULD NOT REACH DAUGHTER HOUSTON VIA PHONE. PT REPORTS SHE SPOKE TO [facility] WHO TOLD HER THAT [facility] WILL NOT TAKE HER DUE TO WEIGHT; PT'S DAUGHTER TOLD PT THAT [facility] WILL NOT TAKE HER. PT REPORTS THERE IS ONE IN [place] THAT MIGHT CONSIDER HER. CM OFFERED CHOICE FORM FOR SIGNATURE SO THAT CM COULD SEND REFERRALS AND BEGIN CALLING TO FIND PLACEMENT. PT REFUSED AND STATES SHE HAS A DAUGHTER, CHEPE, WHO IS A REGISTERED NURSE, THAT MAY BE COMING TO TAKE CARE OF PT AT HOME. PT'S DAUGHTER HOUSTON IS CALLING DAUGHTER CHEPE TO DISCUSS THE OPTION. PT STATES SHE WILL LET CM KNOW THE OUTCOME AND IF SHE WANTS CM TO EXPLORE FDC CARE FOR HER. CM WAITING PT AND FAMILY TO PROVIDE NURSING FACILITY CHOICES AND FOR PT TO SIGN CONSENT FOR FDC PLACEMENT. PT IS NOW HOPEFUL THAT HER DAUGHTER WHO IS A REGISTERED NURSE WILL COME AND STAY WITH PT AND TAKE CARE OF HER AT HOME. SANDOR BUTT, CASE MANAGEMENT Appended by Sandor Butt on 05/28/2019 14:27 CDT: CM RECEIVED MESSAGE THAT PT WANTS TO SEE CM. CM MET WITH PT IN ROOM WHO INFORMED CM THAT SHE HIS NOT GOING TO A FDC, THAT HER DAUGHTER, CHEPE, WHO IS A NURSE, WILL BE HERE NEXT FRIDAY TO TAKE HER HOME AND WILL TAKE CARE OF PT AT HOME. PT ASKED FOR [facility] RESUMPTION. CM DISCUSSED POSSIBLE NEED OF DEBORAH LIFT AND ASKED ABOUT ADDITIONAL EQUIPMENT. PT THINKS BY NEXT WEEK, SHE WILL BE ABLE TO TRANSFER WITHOUT AIDE OF LIFT DEVICE. CM NOTIFIED DR. FREEDMAN WHO INFORMED CM THAT HE WILL ORDER BLOOD GAS ON FRIDAY TO DETERMINE RESPIRATORY DISCHARGE NEEDS AT THAT TIME. PT HAS SIGNED RIGHT OF CHOICE FOR [facility] ALREADY. PT REPORTS HER DAUGHTER, WHO IS A REGISTERED NURSE, WILL BE HERE FRIDAY OF NEXT WEEK TO TAKE CARE OF PT AT HOME. PT PLANS TO DISCHARGE HOME WITH FAMILY AND [facility]. CM TO FOLLOW AND ASSIST NEEDED. ROSANNA MONTAÑO MANAGEMENT DCP- Discharge Planning Updated by [id number]: Sandor Butt on 05/28/19 7:[address] Patient Name: TROY HAYWOOD Encounter No: [id number] : 1955 Primary Insurance: MEDICAID [place] Anticipated DC Date: Planned Disposition: Inpatient Rehab External Planned Provider: [facility] DCP follow-up note: CM FAXED REFERRAL UPDATE TO [facility] AT [phone]. CM WAITING ADMISSION DETERMINATION FROM [facility] IN [place]. Sandor Butt CASE MANAGEMENT DCP- Discharge Planning Updated by [id number]: Sandor Butt on 05/27/19 2:[address] Patient Name: TROY HAYWOOD Encounter No: [id number] : 1955 Primary Insurance: MEDICAID [place] Anticipated DC Date: Planned Disposition: Inpatient Rehab External Planned Provider: [facility] DCP follow-up note: CM FAXED REFERRAL UPDATE TO [facility] AT [phone]. CM WAITING ADMISSION DETERMINATION FROM [facility] IN [place]. Sandor Butt, CASE MANAGEMENT Appended by Sandor Butt on 05/27/2019 14:41 CDT: CM CALLED [facility], , LEFT MESSAGE ASKING FOR UPDATE ON REFERRAL AND TO KNOW IF THEY ARE STILL CONSIDERING PT FOR REHAB. CM WAITING ADMISSION DETERMINATION FROM [facility] IN [place]. Sandor Butt CASE MANAGEMENT DCP- Discharge Planning Updated by [id number]: Jesica Cartagena on 05/26/19 4:[address] Patient requested Trapeze bar to allow her to sit up in hospital bed. CM spoke Dr. Lawson and obtained approval for Trapeze bar. CM notified Radha in materials management of request for Trapeze bar. CM completed and gave Radha the order form for the Trapeze bar. Trapeze bar will be delivered. CM notified patient's CM, Christiano Butt, on status of Trapeze bar. DCP- Discharge Planning Updated by [id number]: Sandor Butt on 05/26/19 3:[address] Patient Name: TROY HAYWOOD Encounter No: [id number] : 1955 Primary Insurance: MEDICAID [facility] DC Date: Planned Disposition: Inpatient Rehab External Planned Provider: [facility] DCP follow-up note: CM SPOKE TO PT'S DAUGHTER VIA PHONE, HOUSTON GERMAINBLOOD, . CM OBTAINED PERMISSION FROM PT TO DISCUSS CARE, TREATMENT AND DISCHARGE PLANNING WITH [facility]. HOUSTON INFORMED CM THAT PT WAS IN REHAB AT [facility] LAST YEAR AND THEY WANT REFERRED TO [facility] AGAIN. CM DISCUSSED PT'S VERY LOW LEVEL OF PHYSICAL CONDITIONING. PT'S DAUGHTER FEELS THAT PT CAN PARTICIPATE WITH THERAPY WITH GOAL TO RETURN HOME PREVIOUS WITH ABILITY TO TRANSFER TO ELECTRIC SCOOTER AND HOME HEALTH FOR CONTINUED HOME SERVICES. HOUSTON VERIFIED THAT PT HAS NO ADULTS ABLE TO LIVE WITH AND ASSIST PT AT HOME AT THIS TIME. HOUSTON ASKED ABOUT [facility] REHAB SERVICES THAT MAY TAKE PT AT NO COSTS DUE TO INCOME. CM INFORMED HOUSTON THAT CM WAS NOT FAMILIAR WITH ANY OF THESE PROGRAMS. HOU[facility]ON WOULD LIKE TO HAVE PT EVALUATED FOR REHAB AT [facility] PRIOR TO ANY CONSIDERATION OF FDC PLACEMENT PT WILL NOT GET THERAPY THERE. CM SPOKE TO PT WHO IS IN AGREEMENT WITH PLAN. CM CALLED [facility], , NOTIFIED OF REHAB REQUEST; PT HAS ONLY 24 ACUTE DAYS THAT STARTED IN JANUARY, IT DEPENDS ON HOW MANY HAVE BEEN ALREADY USED, PT'S CONDITION AND NEEDS THAT WOULD HAVE TO BE MET IN THE REMAINING DAYS THAT PT HAS TO USE FOR REHAB . CM FAXED REFERRALINFORMATION TO [facility] WITH CURRENT MAR AT [phone]. CM WAITING ADMISSION DETERMINATION FROM [facility] IN [place]. Sandor Butt, CASE MANAGEMENT Appended by Sandor Butt on 05/26/2019 15:24 CDT: CM MET WITH PT, GRANDDAUGHTER, DAUGHTER HOUSTON VIA PHONE WITH CM SUPERVISOR NET MAKING, UNIT NURSE SHIFT MECHANIC, REPIRATORY THERAPIST AND SUPERVISOR NET MAKING OF THERAPY SERVICES REGARDING DISCHARGE PLANNING. CONCERNS OF PT'S PLAN TO GO HOME IN CURRENT CONDITION DISCUSSED. PT AND DAUGHTER HAVE ALREADY ASKED FOR REFERRAL TO [facility], CM HAS SENT IT AND WAITING DETERMINATION. PLAN "B" WAS AGREED TO BE NURSING FACILITY IF NOT ACCEPTED TO [facility] AND THAT CM WOULD ATTEMPT TO FIND ONE THAT MAY DONATE REHAB SERVICES. PT'S DAUGHTER IS RESEARCHING [employer]DING FROM [facility] FOR REHAB SERVICES. CM WAITING ADMISSION DETERMINATION FROM [facility] IN [place]. Sandor Butt, CASE MANAGEMENT DCP- Discharge Planning Updated by [id number]: Sandor Butt on 05/25/19 2:[address] Patient Name: TROY HAYWOOD Encounter No: [id number] : 1955 Primary Insurance: MEDICAID [facility] Date: Planned Disposition: Home HEALTH External Planned Provider: [facility], VISITING NURSES [facility] DC follow-up note: CM MET WITH PT IN ROOM TO DISCUSS DISCHARGE NEEDS AND PLANNING. CM DISCUSSED AVAILABILITY OF HOME HEALTH, REHAB SERVICES AND MEDICAL EQUIPMENT. PT REFUSES ALF FACILITY PLACEMENT. PT STATES PLAN TO RETURN HOME. 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 PT WAS ABLE TO AMBULATE SMALL DISTANCES AND TRANSFER SELF FROM BED TO ELECTRIC WHEELCHAIR AT HOME. PT THINKS SHE IS GOING TO BE ABLE TO TRANSFER SELF TO GO BACK HOME. PT WANTS HOME HEALTH RESUMED TO GO HOME. CM EXPRESSED CONCERN OF PT'S CURRENT LEVEL OF FUNCTIONING AND RETURNING HOME. PT DENIES HAVING FRIENDS OR FAMILY TO ASSIST WITH HER CARE AT HOME BUT IS NOT GOING TO A FDC. PT THINKS SHE WILL NEED AN AMBULANCE FOR TRANSPORT HOME HER ELECTRIC WHEELCHAIR IS THERE. CM EXPLAINED TO PT THAT SHE WILL NEED TO DEMONSTRATE WITH THERAPY THE ABILITY TO TRANSFER AND SIT IN CHAIR FOR DISCHARGE. PT STATED UNDRESTANDING. CHOICE FOR [facility] VIS[facility] NURSES HOME HEALTH SIGNED. 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 PT REFUSED NURSING FACILITY PLACEMENT. PT WILL NEED TO DEMONSTRATE ABILITY TO TRANSFER AND SIT IN CHAIR FOR DISCHARGE SHE HAS ELECTRIC WHEELCHAIR AT HOME. CM TO ARRANGE HOME HEALTH RESUMPTION WITH [facility] VISITING NURSES [place] FOR DISCHARGE HOME. CM TO CONTINUE TO FOLLOW AND ASSIST NEEDED. Sandor Butt, CASE MANAGEMENT DCP- Discharge Planning Updated by [id number]: Aleisha Monroe on 05/19/19 7:[address] Patient Name: TROY HAYWOOD Admission Status: ER Accout number: [id number] Admission Date: 05-14-2019 : 1955 Admission Diagnosis: Attending: FABIO PINEDA Current LOS: 5 Anticipated DC Date: Planned Disposition: Home or Self Care Primary Insurance: MEDICAID [place] Discharge Planning Comments: CM met with patient and daughter to complete initial dc planning assessment. Patient recently extubated earlier today. CM educated patient on the CM role and verbal consent given by patient to complete assessment. Patient lives at home with her two young grand-daughters where she is independent with her care. At discharge patient plans to return home and feels this is a safe discharge. CM discussed availability of home health, rehab services, and medical equipment. Patient has Home 02 and HH with unknown providers. CM will f/u with patient @ later date to see if she is able to give providers. Patient denied known discharge needs at this time. CM will continue to follow and will assist as needed with dc plans/needs. Artist Color Separation: Aleisha Monroe DCPIA - Discharge Planning Initial Assessment Updated by [id number]: Sandor Butt on 05/28/19 9:36 am * How many steps to enter\\exit or inside your home? * PCP uncertain ? * Pharmacy [place] * Preadmission Environment Home with Family * ADLs Independent * Other Equipment HOME 02, WALKER, SCOOTER, BSC, SC * List name and contact numbers for known caregivers / representatives who currently or will assist patient after discharge: CHEPE SUN - DAUGHTER- [phone] HOUSTON SALGADO, DTR - [phone] * Verbal permission to speak to the caregivers and representatives has been obtained from the patient. Yes * Community resources currently utilized Home Health * Please name any agencies selected above. [facility] * Additional services required to return to the preadmission environment? No * Can the patient safely return to the preadmission environment? Yes * Has this patient been hospitalized within the prior 30 days at any hospital? No Coverage Notice Reviewer: [id number] Josef Butt Notice Issued Date-Time: 05/25/2019 14:05 Notice Type: Patient Choice Letter Notice Delivered To: Patient Relationship to Patient: Master Merchandiser Name: Delivery Method: HAND - Hand Delivered Marry Days: Prior Verbal Notification: Recipient Understood Notice: Yes Recipient Signature: Yes Med Rec Note Co-signed by Attending: Coverage Notice Comment: [facility]- VISITING [facility]ES [facility] ([facility]) Reviewer: [id number] Butt Notice Issued Date-Time: 05/31/2019 14:50 Notice Type: Patient Choice Letter Notice Delivered To: Patient Relationship to Patient: Master Merchandiser Name: Delivery Method: HAND - Hand Delivered Marry Days: Prior Verbal Notification: Recipient Understood Notice: Yes Recipient Signature: Yes Med Rec Note Co-signed by Attending: Coverage Notice Comment: [facility] Reviewer: NAYLA Butt Notice Issued Date-Time: 06/09/2019 9:55 Notice Type: Patient Choice Letter Notice Delivered To: Patient Relationship to Patient: Master Merchandiser Name: Delivery Method: HAND - Hand Delivered Marry Days: Prior Verbal Notification: Recipient Understood Notice: Yes Recipient Signature: Yes Med Rec Note Co-signed by Attending: Coverage Notice Comment: [facility] OR ANY ACCEPTING ALF FACLITY Reviewer: NAYLA Butt Notice Issued Date-Time: 06/10/2019 16:25 Notice Type: Patient Choice Letter Notice Delivered To: Patient Relationship to Patient: Master Merchandiser Name: Delivery Method: HAND - Hand Delivered Marry Days: Prior Verbal Notification: Recipient Understood Notice: Yes Recipient Signature: Yes Med Rec Note Co-signed by Attending: Coverage Notice Comment: [facility] Reviewer: [email or web address] Butt Notice Issued Date-Time: 06/17/2019 13:55 Notice Type: Patient Choice Letter Notice Delivered To: Patient Relationship to Patient: Master Merchandiser Name: Delivery Method: HAND - Hand Delivered Marry Days: Prior Verbal Notification: Recipient Understood Notice: Yes Recipient Signature: Yes Med Rec Note Co-signed by Attending: Coverage Notice Comment: ANY ACCEPTING ALF FACILITY Reviewer: NAYLA Butt Notice Issued Date-Time: 06/18/2019 14:16 Notice Type: Patient Choice Letter Notice Delivered To: Patient Relationship to Patient: Master Merchandiser Name: Delivery Method: HAND - Hand Delivered Marry Days: Prior Verbal Notification: Recipient Understood Notice: Yes Recipient Signature: Yes Med Rec Note Co-signed by Attending: Coverage Notice Comment: [facility] PATIENT Last DP export: 06/21/19 3:19 Patient Name: TROY HAYWOOD Page [id number] at 1627 All edits/amendments must be made on the electronic document DICTATION DATE: 06/21/191625 COAL DIGGER: MISHEL 06/21/191625 RPT#: [id number] MS DATE: STATUS: ADM IN [facility] [address] [place] [address] END OF REPORT
[2019-06-21 17:00] VITALS: BP 118/46
[2019-06-21 20:00] VITALS: BP 105/53
--- NOTE | 2019-06-21 20:15 | NUR ---
SUPINE IN BED. A&O X 4. REFUSES USE OF NYSTATIN POWDER IN FOLDS. REDDENED/HARDENED EDEMATOUS AREA NOTED TO RIGHT SIDE OF ABDOMEN. REPORTS PAIN TO TOES ON RIGHT FOOT, STATES IT IS A FLARE UP OF GOUT. DENIES FURTHER NEEDS AT THIS TIME, WILL CONTINUE TO MONITOR.
[2019-06-22] VITALS: BP 111/45
--- NOTE | 2019-06-22 03:52 | NUR ---
I have reviewed this patient and I concur with the Shift Assessment completed by the Licensed Practical Nurse today this shift.
[2019-06-22 04:00] VITALS: BP 118/53
[2019-06-22 05:32] LABS: BASOPHILS 0.6 % (0-2); HEMATOCRIT 32.5 % (36.0-48.0); HEMOGLOBIN 9.5 g/dL (12-16); IMMATURE GRANULOCYTES 0.2 % (0-5); LYMPHOCYTES 25.7 % (15-50); MCH 27.4 pg (26.0-34.0); MCHC 29.2 g/dL (31.0-37.0); MCV 93.7 fL (80.0-100.0); MEAN PLATELET VOLUME 10.7 fL (7.4-10.4); MONOCYTES 12.7 % (2-11); NEUTROPHILS 45.8 % (40-80); PLATELET COUNT 245 10x3/uL (130-400); RBC 3.47 10x6/uL (4.00-5.40); RDW 17.7 % (11.5-14.5); WBC 5.3 10x3/uL (4.8-10.8)
[2019-06-22 05:55] LABS: ANION GAP 8.4 mmol/L (8-16); CALCIUM 8.9 mg/dL (8.5-10.1); CARBON DIOXIDE 33.3 mmol/L (21.0-32.0); CREATININE - SERUM 1.4 mg/dL (0.6-1.3); PHOSPHOROUS 4.2 mg/dL (2.5-4.9); POTASSIUM - SERUM 3.7 mmol/L (3.5-5.1)
--- NOTE | 2019-06-22 07:00 | NUR ---
RECEIVED BEDSIDE SHIFT REPORT. ASSUMED CARE OF PATIENT. CALL LIGHT WITHIN REACH. PATIENT STATES SHE IS LEAVING FOR A NURSING FACILITY IN [facility] TODAY. RESP EVEN AND UNLABORED. NO DISTRESS. DENIES NEEDS AT THIS TIME. NO FAMILY AT BEDSIDE.
[2019-06-22 09:01] VITALS: BP 105/45
--- NOTE | 2019-06-22 09:47 | NUR ---
PATIENT PULLED UP IN BED, REPOSITIONED, AND TOLERATED AM MEDICATIONS WELL. NO DISTRESS.
--- NOTE | 2019-06-22 11:45 | NUR ---
RESTING IN BED, NO DISTRESS. DISCHARGE ORDERS ARE NOW ACTIVE. NO DISTRESS. CALL LIGHT WITH IN REACH.
--- NOTE | 2019-06-22 11:46 | NUR ---
PAGE INTO DR ARROYO FOR DISCHARGE MEDS R/T NSTEMI. AWAITING CALL BACK.
--- NOTE | 2019-06-22 12:15 | MORECARE ---
CASE MANAGEMENT DISCHARGE SUMMARY PATIENT: TROY HAYWOOD UNIT: [id number] ADM DATE: 05/14/19 AGE: 64 : 57 SEX: F ROOM/BED: D.2140 AUTHOR: DAYDAY,DOC PHYSICIAN: REFERRING PHYSICIAN: FABIO PINEDA MD DATE OF SERVICE: 06/22/19 Discharge Plan Patient Name: TROY HAYWOOD Facility: [facility]:[place] : 1955 Planned Disposition: Nursing Facility YUN Cert Anticipated Discharge Date: 06/22/19 Discharge Date: Expected LOS: 39 Initial Reviewer: [id number] Initial Review Date: 05/19/2019 Generated: 06/22/19 1:14 pm Comments DCP- Discharge Planning Updated by [id number]: Sandor Butt on 06/21/19 3:[address] Patient Name: TROY HAYWOOD Encounter No: [id number] : 1955 Primary Insurance: MEDICAID [place] Anticipated DC Date: 06-22-2019 Planned Disposition: Nursing Facility YUN Cert External Planned Provider: [facility], [facility] MEDICAID BED DCP follow-up note: CM RECEIVED CALL FROM BARBARA OF [facility], THEY HAVE ALL EQUIPMENT AND CAN ACCEPT PT TOMORROW, 06-21-19. CM NOTIFIED PT. PT WILLING FOR PLACEMENT, WANTS CM TO CHECK WITH [facility] AND IF SHE CANNOT GET PLACEMENT IN [place], THEN SHE WILL GO TO [place]. CM CALLED AND SPOKE TO OJ OF [facility], THEY ARE NOT ABLE TO TAKE PT FOR PLACEMENT. CM RECEIVED MESSAGE FROM CHAR [facility], SHE HAS NOT HOMES IN [place] TO ACCEPT PT AT THIS TIME. CM NOTIFIED CHEPE SUN - DAUGHTER- [phone]. CHEPE IN AGREEMENT WITH PLACEMENT IN [place] AND REPORTS IT IS 2 1/2 HOURS FROM [place]. CM NOTIFIED PT WHO IS IN AGREEMENT WITH PLAN. TOBY CANNON AND DR. LONG NOTIFIED. CM FAXED UPDATE TO [facility], . CM PROVIDED PT WITH FACILITY ADDRESS AND PHONE NUMBER. FOR DISCHARGE 06-22-19. FAX DISCHARGE INFORMATION TO [phone]. NURSE REPORT TO BE CALLED TO [facility], . PT TO TRANSPORT VIA AMBULANCE. [facility], [address], [place] [phone]. Sandor Butt, CASE MANAGEMENT DCP- Discharge Planning Updated by [id number]: Sandor Butt on 06/18/19 2:[address] Patient Name: TROY HAYWOOD Encounter No: [id number] : 1955 Primary Insurance: MEDICAID [place] Anticipated DC Date: 06-11-2019 Planned Disposition: Nursing Facility YUN Cert External Planned Provider: [facility], [facility] MEDICAID BED DCP follow-up note: CM RECEIVED CALL FROM [facility], , SPOKE TO [place] WHO INFORMED CM THEY ARE CONSIDERING PT FOR TREY THERAPY WITH THE PENITENTIARY CARE PLACEMENT, REQUESTED FINANDICAL INFORMATION. CM FAXED FINANCIAL INFORMATION TO [facility] AT [phone]. CHAR KISER, . MET WITH PT AND ASSISTED WITH APPLICATION FOR "[employer]" MEDICARE AND IS STILL WORKING TO GET PT INTO ONE OF HER NURSING HOMES FOR THERAPY SERVICES. CM RECEIVED CALL FROM [facility], SHE HAS A FACILITY IN [facility] THAT IS A NON PROFIT AND THEY ARE CONSIDERING PT FOR TREY REHAB SERVICES. PT HAS BEEN DECLINED BY [facility] (TREY CARE), [facility] ([facility]), [facility] (PRIVATE PAY), [facility] AND [facility] - CM WAITING ADMISSION DETERMINATION FROM [facility] FOR PENITENTIARY CARE PLACEMENT IN ONE OF HER AFFILIATED NURSING HOMES. - CM WAITING ADMISSION DETERMINATION FROM [facility] FOR [facility] CARE. - CM WAITING DETERMINATION FROM TROY [facility] FOR PENITENTIARY CARE PLACEMENT IN ONE OF HER AFFILIATED [facility] HOMES. Sandor Butt, CASE MANAGEMENT Appended by Sandor Butt on 06/18/2019 15:46 LEAD RELAY TESTER: CM RECEIVED ORDER FOR TRILOGY, SPOKE TO PT WHO REQUESTED [facility] HER OXGYEN IS FROM THEM, IF NOT, [facility] OR [facility]. CM CALLED [facility] IN [facility], SPOKE TO TESS WHO REFERRED CM TO [facility] IN [place]. CM CALLED [facility] IN [place], , SPOKE TO MAHESH WHO INFORMED CM THAT MEDICAID WOULD COVER TRILOGY, THEY CAN PROCESS THE ORDER. CM FAXED ORDER TO [facility] AT [phone]. - CM WAITING TRILOGY ORDER PROCESSING AND HOSPITAL DELIVERY OF TRILOGY BY [facility]. - CM WAITING ADMISSION DETERMINATION FROM [facility] FOR PENITENTIARY CARE PLACEMENT IN ONE OF HER AFFILIATED NURSING HOMES. - CM WAITING ADMISSION DETERMINATION FROM [facility] FOR [facility]. - CM WAITING DETERMINATION FROM TROY [facility] FOR PENITENTIARY CARE PLACEMENT IN ONE OF HER AFFILIATED NURSING HOMES. Sandor Butt, CASE MANAGEMENT DCP- Discharge Planning Updated by [id number]: Sandor Butt on 06/17/19 2:[address] Patient Name: TROY HAYWOOD Encounter No: [id number] : 1955 Primary Insurance: MEDICAID [facility] DC Date: 06-11-2019 Planned Disposition: Nursing Facility YUN Cert External Planned Provider: [facility], PENITENTIARY CARE MEDICAID BED DCP follow-up note: CM RECEIVED PHONE MESSAGE FROM MITCH IGLBERT [facility], HE AND THE DOCTOR HAVE REVIEWED REFERRAL AND DECLINED PT. THEY DO NOT FEEL PT HAS MADE SIGNIFICANT PROGESS AND HAS NOT DEMONSTRATED ABILITY TO DO THREE HOURS OF PROGRESSIVE THERAPY. CM MET WITH PT IN ROOM, DISCUSSED DENIAL FOR INPATIENT REHAB BY [facility], DISCUSSED [facility] C[facility] OPTIONS. PT DID SIGN CONSENT FOR ANY CARE HOME FACILITY; PT ASKED CM TO KEEP PT CLOSE TO HOME POSSIBLE. CM EXPLAINED THAT A STATEWIDE SEARCH WILL BE DONE AND THAT ALL EFFORTS WILL BE MADE TO KEEP PT CLOSE TO [place] POSSIBLE REQUESTED. CM CALLED PT'S DAUGHTER CHEPE AT PT'S REQUEST, NOTIFIED HER OF ABOVE INFORMATION. CHEPE AGREES THAT PT IS STILL NOT SAFE TO RETURN HOME IN HER CURRENT CONDITION AND AGREES WITH [facility]CI PLACEMENT FOR RESTORATIVE CARE. CM CALLED [facility], , SPOKE TO [place] WHO INFORMED CM THAT THEY DO BERIATRIC CARE. CM FAXED REFERRAL TO [facility] AT [phone]. CM FAXED REFERRAL UPDATE TO CHAR [facility], . CHAR INQUIRED ABOUT WHEN DID PT BEGIN RECEIVING SOCIAL SECURITY DISABILTY, PT STATES 15 YEARS AGO, INFORMATION PROVIDED TO CHAR. CM FAXED REFERRAL UPDATE TO [facility], . PT HAS BEEN DECLINED BY [facility] ([facility] ([facility]), [facility] (PRIVATE PAY), [facility] AND [facility]. - CM WAITING ADMISSION DETERMINATION FROM [facility] FOR PENITENTIARY CARE PLACEMENT IN ONE OF HER AFFILIATED NURSING HOMES. - CM WAITING ADMISSION DETERMINATION FROM [facility] FOR PENITENTIARY CARE. - CM WAITING DETERMINATION FROM TROY [facility] FOR PENITENTIARY CARE PLACEMENT IN ONE OF HER AFFILIATED NURSING HOMES. ROSANNA Montaño DCP- Discharge Planning Updated by [id number]: Sandor Butt on 06/17/19 8:[address] Patient Name: TROY HAYWOOD Encounter No: [id number] : 1955 Primary Insurance: MEDICAID [place] Anticipated DC Date: 06-11-2019 Planned Disposition: Nursing Facility YUN Cert External Planned Provider: [facility] DCP follow-up note: CM ATTEMPTED TO EMAIL [employer] ASSISTANCE [employer] FOR UPDATE ON APPLICATION AT [email or web address]. THE EMAIL FAILED. CM FAXED REQUEST FOR UPDATE TO [employer] AT [phone] AND [phone]. - CM WAITING ADMISSION DETERMINATION FROM CHAR [facility] FOR [facility] CARE PLACEMENT IN ONE OF HER AFFILIATED NURSING HOMES. - CM WAITING RETURN CALL FROM [facility] IN [place] REGARDING TREY REHAB. - CM WAITING DETERMINATION FROM TROY [facility] FOR PENITENTIARY CARE PLACEMENT IN ONE OF HER AFFILIATED NURSING HOMES. Sandor Butt, CASE MANAGEMENT Sandor Butt DCP- Discharge Planning Updated by [id number]: Sandor Butt on 06/16/19 4:[address] Patient Name: TROY HAYWOOD Encounter No: [id number] : 1955 Primary Insurance: MEDICAID [place] Anticipated DC Date: 06-11-2019 Planned Disposition: Nursing Facility YUN Cert External Planned Provider: [facility] DCP follow-up note: CM FAXED REFERRAL UPDATE TO TROY [facility] FOR PENITENTIARY CARE PLACEMENT AT [phone]. CM FAXED REFERRAL [place] TO [facility] AT [phone]. CM FAXED UPDATE TO [facility] AT [phone] FOR PENITENTIARY CARE PLACEMENT. - CM WAITING ADMISSION DETERMINATION FROM [facility] FOR [facility] PLACEMENT IN ONE OF HER AFFILIATED NURSING HOMES. - CM WAITING RETURN CALL FROM [facility] IN [place] REGARDING TREY REHAB. - CM WAITING DETERMINATION FROM TROY [facility] FOR PENITENTIARY CARE PLACEMENT IN ONE OF HER AFFILIATED NURSING HOMES. Sanodr Butt, CASE MANAGEMENT DCP- Discharge Planning Updated by [id number]: Sandor Butt on 06/15/19 3:[address] Patient Name: TROY HAYWOOD Encounter No: [id number] : 1955 Primary Insurance: MEDICAID [facility] DC Date: 06-11-2019 Planned Disposition: Nursing Facility YUN Cert External Planned Provider: [facility] DCP follow-up note: CHRISTOPHER SENT MESSAGE TO TROY MIMS, , OF [facility] ASKING FOR PENITENTIARY CARE PLACEMENT ASSISTANCE WITH REHAB IF POSSIBLE. CM FAXED REFERRAL TO TROY AT [phone]. CM CALLED [facility] IN [facility], , HE HAS NOT BEEN ABLE TO GET A DETERMINATION ON TREY AND CANNOT LOCATE THE PERSON IN CORPORATE WHO HAS PT'S TREY APPLICATION. HE WILL CONTINUE TO TRY TO LOCATE WHO IS PROCESSING THE APPLICATION HE HAS NOT SEEN IT OR HEARD ANY DETERMINATION. CHRISTOPHER FAXED REFERRAL [place] TO [facility] AT [phone]. M FAXED UPDATE TO CHAR KISER OF [facility] AT [phone]. CHAR INFORMED CM THAT SHE HAS NO BERIATRIC FCI BED YET BUT IS HOPEUL TO HAVE AN OPENING "SOON". ASKED BY PT'S DAUGHTER, CM CALLED AND SPOKE TO RUT, , OF [facility] AND REQUESTED PRIVATE PAY DOWN PAYMENT AND MONTHLY PAYMENT AMOUNTS FOR REHAB AT [facility]. CM FAXED REFERRAL TO [facility] AT [phone]. - CM WAITING ADMISSION DETERMINATION FROM [facility] FOR PENITENTIARY CARE PLACEMENT IN ONE OF HER AFFILIATED NURSING HOMES. - CM WAITING RETURN CALL FROM [facility] IN [place] REGARDING TREY REHAB. - CM WAITING DETERMINATION FROM [facility] FOR SECOND CRUSHER CARE PLACEMENT IN ONE OF HER AFFILIATED NURSING HOMES. Sandor Butt, CASE MANAGEMENT Appended by Sandro Butt on 06/15/2019 16:28 LEAD RELAY TESTER: CM FAXED [facility] TREY APPLICATION TO [facility]. CM SPOKE TO TROY OF [facility] WHO EXPLAINED SHE IS CONTINUING TO LOOK FOR [facility] PLACEMENT; THE OBSTACLE IS THE COSTS OF RENTING BIPAP AND OTHER BERIATRIC EQUIPMENT. CM SPOKE TO RUT OF [facility] IN[facility]IENT RE[facility], THEY WILL NOT CONSIDER PATIENT FOR REHAB ON PRIVATE PAY BASIS AND WOULD DENY PATIENT REGARDLESS DUE TO HER "ENTIRE SITUATION". CM NOTIFIED PT AND DAUGHTER IN ROOM OF PROGRESS AND LACK THEREOF. CM ASKED TO SEND REFERRALS TO OTHER NURSING FACILITIES, PT REFUSED STATING SHE WANTS TO WAIT FOR DEFINITE ANSWER FROM [facility] FOR TREY REHAB SERVICES. - CM WAITING ADMISSION DETERMINATION FROM [facility] FOR [facility] CARE PLACEMENT IN ONE OF HER AFFILIATED NURSING HOMES. - CM WAITING RETURN CALL FROM [facility] IN [place] REGARDING TREY REHAB. - CM WAITING DETERMINATION FROM [facility] FOR SECOND CRUSHER CARE PLACEMENT IN ONE OF HER AFFILIATED NURSING HOMES. Sandor Butt, CASE MANAGEMENT DCP- Discharge Planning Updated by [id number]: Sandor Butt on 06/11/19 3:[address] Patient Name: TROY HAYWOOD Encounter No: [id number] : 1955 Primary Insurance: MEDICAID [place] Anticipated DC Date: 06-11-2019 Planned Disposition: Nursing Facility [facility] External Planned Provider: : DCP follow-up note: CM RECEIVED MESSAGE FROM TROY OF [facility], THEY WILL NOT ACCEPT PT. CM FAXED REFERRAL UDPATE TO [facility] AT [phone]. CM FAXED UPDATE TO [facility] AT [phone]. CHAR INFORMED CM THAT SHE ANTICIPATES A BERIATRIC [facility] BED OPENING "SOON". CM NOTIFIED PT AND DAUGHTER OF PROGRESS / LACK THEREOF IN ROOM. - CM WAITING ADMISSION DETERMINATION FROM CHAR [facility] FOR PENITENTIARY CARE PLACEMENT IN ONE OF HER AFFILIATED NURSING HOMES. - CM WAITING RETURN CALL FROM [facility] IN [place] REGARDING TREY REHAB. ROSANNA Montaño DCP- Discharge Planning Updated by [id number]: Sandor Butt on 06/10/19 3:[address] Patient Name: TROY HAYWOOD Encounter No: [id number] : 1955 Primary Insurance: MEDICAID [place] Anticipated DC Date: 06-11-2019 Planned Disposition: Nursing Facility YUN Cert External Planned Provider: [facility] DCP follow-up note: - CM RECEIVED CALL FROM [facility], THEY HAVE NOT AVAILABILITY FOR TREY REHAB BED. CM RECEIVED CALL FROM MITCH OF [facility], THEY HAVE NOT RECEIVED TREY APPLICATION AND HAVE NO CURRENT BEDS BUT WOULD CONSIDER PT. CM RETURNED CALL TO MITCH AT [facility], , INFORMED THAT TREY APPLICATION HAD [facility], TELEPHONE CONTACT [phone]. HETAL ASKED FOR REFERRAL TO BE SENT AND HE WILL SCREEN FOR ADMISSION. CM FAXED REFERRAL TO [facility] AT [phone]. CM NOTIFIED PT AND DAUGHTER OF PROGRESS IN ROOM. PT AND DAUGHTER ASKED FOR CM TO SEND REFERRAL TO [facility] [place]. CHOICE SIGNED. CM FAXED REFERRAL TO [facility] AT [phone]. - CM WAITING ADMISSION DETERMINATION FROM [facility] FOR [facility] CRUSHER CARE PLACEMENT IN ONE OF HER AFFILIATED NURSING HOMES. - CM WAITING RETURN CALL FROM [facility] IN [place] REGARDING TREY REHAB. - CM WAITING ADMISSION DETERMINATION FROM [facility]. ROSANNA Montaño DCP- Discharge Planning Updated by [id number]: Sandor Butt on 06/09/19 3:[address] Patient Name: TROY HAYWOOD Encounter No: [id number] : 1955 Primary Insurance: MEDICAID [place] Anticipated DC Date: 06-10-2019 Planned Disposition: Nursing Facility YUN Cert External Planned Provider: [facility] DCP follow-up note: CM SPOKE TO PT AND DAUGHTER, CHEPE, THEY WILL LET CM SEEK [facility] PLACEMENT FOR THEM TO CONSIDER BUT STILL DO NOT WANT PENITENTIARY CARE IF THEY CAN OBTAIN REHAB THROUGH THE [facility]. DAUGHTER ADVISED SHE HAS CONFIRMED RECEIPT OF THE APPLICATION FAXED TO THE [facility] AND IS IN PROCESS OF REVIEW. DAUGHTER ASKED CM TO CHECK INTO REHAB'S THAT MAY HAVE [facility] AFFILIATION. CM CALLED [facility], , REQUESTED ASSISTANCE IN SECOND CRUSHER CARE PLACEMENT WITH INTENT TO RETURN HOME. CHAR STATES THAT SHE MAY HAVE HOME'S WILL ACCEPT BARIATRIC PATIENT AND WILL ATTEMPT PLACEMENT. CHAR WILL MEET WITH PT LATER TODAY. CM FAXED REFERRAL TO [facility] AT [phone]. CM SPOKE TO TROY MIM[facility] OF [facility], TROY INFORMED CM THAT SHE HAS NO HOMES IN HER GROUP THAT MAY ASSIST WITH PLACEMENT. CM CALLED [facility], WAS ADVISED BY RUT THAT THEY WILL NOT CONSIDER FOR TREY CARE, THEY ARE NOT AFFILIATED WITH [facility]. CM CALLED [facility], , SPOKE TO CHELO WHO INFORMED CM THAT THEY ARE NOT AFFILIATED WITH [facility] BUT WILL CONSIDER PT FOR TREY REHAB. CM FAXED REFERRAL TO [facility] AT [phone]. CM CALLED [facility] IN [place], , SPOKE TO DHEERAJ WHO REPORTS THEY HAVE NO OPEN REHAB BEDS AND HAVE NO PROJECTED DISCHARGES SOON. THEY DO NOT HAVE WEIGHT LIMITS. DHEERAJ DID NOT WANT REFERRAL FAXED, SHE WILL REPORT TO BREN WHO WILL [facility] REGARDING APPLICATION STATUS AND CALL CM TOMORROW, 06-10-19. CM NOTIFIED PT IN ROOM OF PROGRESS. PT STATES SHE MAY BE ABLE TO TRANSFER SELF AND GO HOME BEFORE CM FINDS REHAB FOR HER. - CM WAITING ADMISSION DETERMINATION FROM [facility] FOR PENITENTIARY CARE PLACEMENT IN ONE OF HER AFFILIATED NURSING HOMES. - CM WAITING ADMISSION DETERMINATION FROM [facility] FOR TREY REHAB BED. - CM WAITING RETURN CALL FROM [facility] IN [place] REGARDING TREY REHAB. Sandor Butt CASE MANAGEMENT DCP- Discharge Planning Updated by [id number]: Sandor Butt on 06/04/19 4:[address] Patient Name: TROY HAYWOOD Encounter No: [id number] : 1955 Primary Insurance: MEDICAID [place] Anticipated DC Date: 06-02-2019 Planned Disposition: Nursing Facility YUN Cert External Planned Provider: TO BE DETERMINED DCP follow-up note: CM SPOKE TO PT AND DAUGHTER CHEPE, IN ROOM. PT IS AND FOR PAST 10 YEARS, BUT NOT LEGALLY. THEY CANNOT QUALIFY FOR MEDICAID FOR SECOND CRUSHER CARE DUE TO NOT HAVING SPOUSE FINANICAL INFORMATION. PT AND DAUGHTER BOTH STATE THAT THEY DO NOT WANT TO PUT PT INTO [facility] CARE WHERE SHE WILL JUST LAY IN THE BED. THEY DO NOT WANT FURTHER [facility] REFERRALS FAXED OUT. CM DISCUSSED THAT PT IS STABLE FOR DISCHARGE MEDICALLY. PT'S DAUGHTER REPORTS PT IS NOT HAVING BOWEL MOVEMENTS AND THAT THE FECES COMING OUT IS COMING AROUND AN IMPACTION AND NO ONE IS ADDRESSING THIS. CM NOTIFIED TOBY THOMAS WHO PROVIDED ORDERS FOR MEDICATION TO TREAT CONDITION. BEDSIDE NURSE NOTIFIED. PT'S DAUGHTER PROVIDED CM WITH 77 PAGES AND ASKED CM TO FAX TO [facility] FOR FINANCIAL ASSISTANCE REGARDING REHAB SERVICES FOR PT. CM FAXED TO [facility] FINANCIAL ASSISTANCE PROGRAM AT [phone]. PT'S DAUGHTER ADVISED THAT IF APPROVED, PT WILL HAVE TO GO TO A [facility] FOR REHAB. PT WAS DECLINED PENITENTIARY CARE PLACEMENT AT [facility]; PT AND FAMILY DECLINE TO HAVE FURTHER REFERRALS SENT OUT. FAMILY IS TRYING TO SECURE FINANCIAL ASSISTANCE FOR REHAB SERVICES THROUGH [facility]. CM TO CONTINUE TO FOLLOW AND ASSIST. Sandor Butt CASE MANAGEMENT DCP- Discharge Planning Updated by [id number]: Sandor Butt on 06/04/19 11:[address] Patient Name: TROY HAYWOOD Encounter No: [id number] : 1955 Primary Insurance: MEDICAID [place] Anticipated DC Date: 06-02-2019 Planned Disposition: Nursing Facility YUN Cert External Planned Provider: WAITING FAMILY DECISION DCP follow-up note: CM RECEIVED CALL FROM [facility] WHO ADVISED CM THAT PT HAS BEEN FIANCIALLY DENIED FOR PLACEMENT. CM SPOKE TO PT IN ROOM WHO ADVISED THAT SHE UNDERSTOOD THEY WERE JUST GOING TO LEAVE HER LAYING IN BED FOR A MONTH AND NOT GIVE HER ANY REHAB SERVICES. CM EXPLAINED THAT MEDICAID DOES NOT PAY FOR REHAB SERVICES, ONLY SECOND CRUSHER CARE AND PT WOULD RECEIVE WHAT THEY CALL "RESTORATIVE CARE" FROM STAFF AT ANY [facility], NOT THERAPY SERVICES. PT STATES SHE IS NOW ABLE TO STAND UP WITH THERAPY HERE. CM EXPLAINED THAT PT IS GETTING 8 TO 16 MINUTES OF THERAPY PER DAY AND THAT ALTHOUGH CM WAS HAPPY WITH PROGRESSION, PT IS MEDICALLY STABLE TO LEAVE THE HOSPITAL AND THAT SHE WOULD RECEIVE MORE THERAPY AT HOME WITH HOME HEALTH THAN IN THIS ACUTE HOSPITAL SETTING. PT STATES SHE IS NOT SURE WHAT HAPPENED, THAT CHEPE IS TAKING CARE OF THIS FOR HER AND THAT CHEPE WILL BE TO THE HOSPITAL IN A LITTLE WHILE TO SPEAK TO CM; PT BELIVES THAT CHEPE IS AGAIN WORKING ON TRYING TO GET TREY REHAB CARE THROUGH THE [facility]. PT HAS BEEN FINANCIALLY DECLINED FOR PENITENTIARY CARE PLACEMENT BY [facility]. PT DEFERRING PLANNING TO HER DAUGHTER, CHEPE. CM WAITING FAMILY TO ARRIVE TO DISCUSS FURTHER DISCHARGE PLANNING. Sandor Butt CASE MANAGEMENT DCP- Discharge Planning Updated by [id number]: Sandor Butt on 06/03/19 7:[address] Patient Name: TROY HAYWOOD Encounter No: [id number] : 1955 Primary Insurance: MEDICAID [place] Anticipated DC Date: 06-02-2019 Planned Disposition: Nursing Facility YUN Cert External Planned Provider: [facility], SECOND CRUSHER CARE MEDICAID BED DISCHARGE PLANNING NOTE: CM FAXED REFERRAL UPDATE TO [facility] AT [phone]. CM WAITING ADMISSION DETERMINATION FROM [facility] FOR PENITENTIARY CARE. WAITING FAMILY TO PROVIDE FINANCIAL INFORMATION FOR PENITENTIARY CARE MEDICAID APPLICATION TO FACILITY. ROSANNA Montaño DCP- Discharge Planning Updated by [id number]: Sandor Butt on 06/02/19 3:[address] Patient Name: TROY HAYWOOD Encounter No: [id number] : 1955 Primary Insurance: MEDICAID [place] Anticipated DC Date: 06-02-2019 Planned Disposition: Nursing Facility [facility] Cert External [facility], PENITENTIARY CARE MEDICAID BED DCP follow-up note: CM FAXED REFERRAL UPDATE TO [facility] AT [phone]. CM WAITING ADMISSION DETERMINATION FROM [facility] FOR SECOND CR[facility]HER CARE. Sandor Butt, CASE MANAGEMENT Appended by Sandor Butt on 06/02/2019 16:50 LEAD RELAY TESTER: CM RECEIVED CALL FROM LUIS OF [facility], , THEY RECEIVED THE UPDATE BY FAX AND WILL CONTACT FAMILY REGARDING FINANCIALS. LUIS REPORTS THEY ARE STILL WAITING ON NURSING TO ACCEPT FOR PENITENTIARY CARE AND WILL ALSO NEED FINANCIAL CLEARANCE TO ENTER THE FACILITY. CM WAITING ADMISSION DETERMINATION FROM [facility] FOR [facility]. [facility] CONTACTING FAMILY TO ASSIST WITH FINANCIAL INFORMATION FOR PENITENTIARY CARE MEDICAID APPLICATION. Sandor Butt CASE MANAGEMENT DCP- Discharge Planning Updated by [id number]: Sandor Butt on 06/01/19 4:[address] Patient Name: TROY HAYWOOD Encounter No: [id number] : 1955 Primary Insurance: MEDICAID [place] Anticipated DC Date: 06-02-2019 Planned Disposition: Nursing Facility YUN Cert External Planned Provider: [facility], PENITENTIARY [facility] MEDICAID BED DCP follow-up note: CM MET WITH PT AND DAUGHTER [place], WHO HAS MADE IT FROM [place]. UPDATE PROVIDED. CM CALLED [facility], DALE INFORMED CM THAT REFERRAL FROM AND [facility] WAS RECEIVED, STAFF IN MEETING TODAY AND THEY WILL FINISH ADMISSION REVIEW TOMORROW, 06-02-19. CM NOTIFIED PT AND DAUGHTER IN ROOM. CM WAITING ADMISSION DETERMINATION FROM [facility] FOR [facility]OND [facility]HER CARE. Sandor Butt CASE MANAGEMENT DCP- Discharge Planning Updated by [id number]: Sandor Butt on 05/31/19 3:[address] Patient Name: TROY HAYWOOD Encounter No: [id number] : 1955 Primary Insurance: MEDICAID [place] Anticipated DC Date: 06-01-2019 Planned Disposition: Nursing Facility [facility] External Planned Provider: [facility], PENITENTIARY CARE MEDICAID BED DCP follow-up note: AFTER SEVERAL VISITS WITH PT IN ROOM, PHONE CALLS WITH DAUGHTERS, [facility], [facility] AND [facility], PT DECIDED TO CONSENT TO 30 DAYS OF [facility] AT [facility] AFTER PT'S DAUGTHERS, WITH AIDE OF [facility], LOCATED [facility] WHO WILL CONSIDER PT FOR CARE. PT SIGNED CHOICE. CM FAXED REFERRAL INFORMATION TO [facility] AT [phone]. CM WAITING ADMISSION DETERMINATION FROM [facility] [facility] FOR [facility]. Sandor Butt CASE MANAGEMENT DCP- Discharge Planning Updated by [id number]: Sandor Butt on 05/28/19 3:[address] Patient Name: TROY HAYWOOD Encounter No: [id number] : 1955 Primary Insurance: MEDICAID [place] Anticipated DC Date: 06-02-2019 Planned Disposition: Home with Home Health External Planned Provider: [facility] DCP follow-up note: CM RECEIVED CALL FROM PT'S DAUGHTER, CHEPE, WHO VERIFIED THAT SHE WILL COME NEXT WEEK TO STAY WITH PT FOR TWO OR THREE WEEKS TO CARE FOR PT AT HOME. CHEPE WILL DISCUSS WITH HER MOTHER THAT SHE WILL HAVE TO BE ABLE TO STAND AND TRANSFER FOR CHEPE TO CARE FOR HER. CM REVIEWED THERAPY NOTES TO PRESENT. 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 PT HAS BEDSIDE COMMODE AND WHEELCHAIR AT HOME. CHEPE REPORTS NEED OF [facility] RESUMPTION. CHEPE WILL DISCUSS WITH PT AND TRY TO MOTIVATE HER TO MEET THERAPY GOALS PRIOR TO ARRIVAL ON NEXT FRIDAY OR FRIDAY. PT'S DAUGHTER PLANS TO TAKE PT HOME NEXT FRIDAY OR FRIDAY, THEY WILL NEED [facility] RESUMPTION, DENIES FURTHER NEEDS. CM TO FOLLOW AND ASSIST NEEDED. Sandor Butt CASE MANAGEMENT DCP- Discharge Planning Updated by [id number]: Sandor Butt on 05/28/19 2:[address] Patient Name: TROY HAYWOOD Encounter No: [id number] : 1955 Primary Insurance: MEDICAID [place] Anticipated DC Date: Planned Disposition: Nursing Facility [facility] External Planned Provider: TO BE DETERMINED DCP follow-up note: CM SPOKE TO [facility], SHE INFORMED CM THAT UPDATES HAVE BEEN RECEIVED, PT IS NOT MAKING ENOUGH PROGRESS WITH THERAPY THAT THEY DO NOT BELIEVE THAT PT WILL BE ABLE TO ACHIEVE THERAPY GOALS IN THE REMAINING 10 DAYS OF ACUTE DAYS THAT PT HAS REMAINING. CM NOTIFIED PT AND PROVIDED PT WITH NURSING FACILITY LISTING OF ALL AVAILABLE FACILITIES WITHIN [address] OF [place]. PT WILL SPEAK TO HER DAUGHTER AND NOTIFY CM OF HER CHOICES. CM CALLED [facility] SALGAD[facility], , TWICE; AUTOMATED MESSAGE INFORMED CM THAT THE NUMBER WAS RESTRICTED OR CURRENTLY UNAVAILABLE. CM WAITING PT AND FAMILY TO PROVIDE NURSING FACILITY CHOICES FOR PENITENTIARY CARE. Sandor Butt, CASE MANAGEMENT Appended by Sandor Butt on 05/28/2019 12:07 CDT: CM SPOKE TO PT IN ROOM, NOTIFIED PT THAT CM TRIED AND COULD NOT REACH DAUGHTER HOUSTON VIA PHONE. PT REPORTS SHE SPOKE TO HOUSTON WHO TOLD HER THAT [facility] WILL NOT TAKE HER DUE TO WEIGHT; PT'S DAUGHTER TOLD PT THAT [facility] PROBAB[facility] WILL NOT TAKE HER. PT REPORTS THERE IS ONE IN [place] THAT MIGHT CONSIDER HER. CM OFFERED CHOICE FORM FOR SIGNATURE SO THAT CM COULD SEND REFERRALS AND BEGIN CALLING TO FIND PLACEMENT. PT REFUSED AND STATES SHE HAS A DAUGHTER, CHEPE, WHO IS A REGISTERED NURSE, THAT MAY BE COMING TO TAKE CARE OF PT AT HOME. PT'S DAUGHTER HOUSTON IS CALLING DAUGHTER CHEPE TO DISCUSS THE OPTION. PT STATES SHE WILL LET CM KNOW THE OUTCOME AND IF SHE WANTS CM TO EXPLORE [facility] CARE FOR HER. CM WAITING PT AND FAMILY TO PROVIDE NURSING FACILITY CHOICES AND FOR PT TO SIGN CONSENT FOR [facility] PLACEMENT. PT IS NOW HOPEFUL THAT HER DAUGHTER WHO IS A REGISTERED NURSE WILL COME AND STAY WITH PT AND TAKE CARE OF HER AT HOME. SANDOR BUTT, CASE MANAGEMENT Appended by Sandor Butt on 05/28/2019 14:27 CDT: CM RECEIVED MESSAGE THAT PT WANTS TO SEE CM. CM MET WITH PT IN ROOM WHO INFORMED CM THAT SHE HIS NOT GOING TO A [facility], THAT HER DAUGHTER, CHEPE, WHO IS A NURSE, WILL BE HERE NEXT FRIDAY TO TAKE HER HOME AND WILL TAKE CARE OF PT AT HOME. PT ASKED FOR [facility] RESUMPTION. CM DISCUSSED POSSIBLE NEED OF DEBORAH LIFT AND ASKED ABOUT ADDITIONAL EQUIPMENT. PT THINKS BY NEXT WEEK, SHE WILL BE ABLE TO TRANSFER WITHOUT AIDE OF LIFT DEVICE. CM NOTIFIED DR. FREEDMAN WHO INFORMED CM THAT HE WILL ORDER BLOOD GAS ON FRIDAY TO DETERMINE RESPIRATORY DISCHARGE NEEDS AT THAT TIME. PT HAS SIGNED RIGHT OF CHOICE FOR [facility] ALREADY. PT REPORTS HER DAUGHTER, WHO IS A REGISTERED NURSE, WILL BE HERE FRIDAY OF NEXT WEEK TO TAKE CARE OF PT AT HOME. PT PLANS TO DISCHARGE HOME WITH FAMILY AND [facility]. CM TO FOLLOW AND ASSIST NEEDED. ROSANNA MONTAÑO MANAGEMENT DCP- Discharge Planning Updated by [id number]: Sandor Butt on 05/28/19 7:[address] Patient Name: TROY HAYWOOD Encounter No: [id number] : 1955 Primary Insurance: MEDICAID [place] Anticipated DC Date: Planned Disposition: Inpatient Rehab External Planned Provider: [facility] DCP follow-up note: CM FAXED REFERRAL UPDATE TO [facility] AT [phone]. CM WAITING ADMISSION DETERMINATION FROM [facility] IN [place]. Sandor Butt CASE MANAGEMENT DCP- Discharge Planning Updated by [id number]: Sandor Butt on 05/27/19 2:[address] Patient Name: TROY HAYWOOD Encounter No: [id number] : 1955 Primary Insurance: MEDICAID [place] Anticipated DC Date: Planned Disposition: Inpatient Rehab External Planned Provider: [facility] DCP follow-up note: CM FAXED REFERRAL UPDATE TO [facility] AT [phone]. CM WAITING ADMISSION DETERMINATION FROM [facility] IN [place]. Sandor Butt, CASE MANAGEMENT Appended by Sandor Butt on 05/27/2019 14:41 CDT: CM CALLED [facility], , LEFT MESSAGE ASKING FOR UPDATE ON REFERRAL AND TO KNOW IF THEY ARE STILL CONSIDERING PT FOR REHAB. CM WAITING ADMISSION DETERMINATION FROM [facility] IN [place]. Sandor Butt CASE MANAGEMENT DCP- Discharge Planning Updated by [id number]: Jesica Cartagena on 05/26/19 4:[address] Patient requested Trapeze bar to allow her to sit up in hospital bed. CM spoke Dr. Lawson and obtained approval for Trapeze bar. CM notified Radha in materials management of request for Trapeze bar. CM completed and gave Radha the order form for the Trapeze bar. Trapeze bar will be delivered. CM notified patient's CM, Christiano Butt, on status of Trapeze bar. DCP- Discharge Planning Updated by [id number]: Sandor Butt on 05/26/19 3:[address] Patient Name: TROY HAYWOOD Encounter No: [id number] : 1955 Primary Insurance: MEDICAID [facility] DC Date: Planned Disposition: Inpatient Rehab External Planned Provider: [facility] DCP follow-up note: CM SPOKE TO PT'S DAUGHTER VIA PHONE, HOUSTON GERMAINBLOOD, . CM OBTAINED PERMISSION FROM PT TO DISCUSS CARE, TREATMENT AND DISCHARGE PLANNING WITH HOUSTON. HOUSTON INFORMED CM THAT PT WAS IN REHAB AT [facility] LAST YEAR AND THEY WANT REFERRED TO [facility] AGAIN. CM DISCUSSED PT'S VERY LOW LEVEL OF PHYSICAL CONDITIONING. PT'S DAUGHTER FEELS THAT PT CAN PARTICIPATE WITH THERAPY WITH GOAL TO RETURN HOME PREVIOUS WITH ABILITY TO TRANSFER TO ELECTRIC SCOOTER AND HOME HEALTH FOR CONTINUED HOME SERVICES. HOUSTON VERIFIED THAT PT HAS NO ADULTS ABLE TO LIVE WITH AND ASSIST PT AT HOME AT THIS TIME. HOUSTON ASKED ABOUT [facility] THAT MAY TAKE PT AT NO COSTS DUE TO INCOME. CM INFORMED HOUSTON THAT CM WAS NOT FAMILIAR WITH ANY OF THESE PROGRAMS. HOUSTON WOULD LIKE TO HAVE PT EVALUATED FOR REHAB AT [facility] PRIOR TO ANY CONSIDERATION OF [facility] PLACEMENT PT WILL NOT GET THERAPY THERE. CM SPOKE TO PT WHO IS IN AGREEMENT WITH PLAN. CM CALLED [facility], , NOTIFIED OF REHAB REQUEST; PT HAS ONLY 24 ACUTE DAYS THAT STARTED IN JANUARY, IT DEPENDS ON HOW MANY HAVE BEEN ALREADY USED, PT'S CONDITION AND NEEDS THAT WOULD HAVE TO BE MET IN THE REMAINING DAYS THAT PT HAS TO USE FOR REHAB . CM FAXED REFERRALINFORMATION TO [facility] WITH CURRENT MAR AT [phone]. CM WAITING ADMISSION DETERMINATION FROM [facility] IN [place]. Sandor Butt, CASE MANAGEMENT Appended by Sandor Butt on 05/26/2019 15:24 CDT: CM MET WITH PT, GRANDDAUGHTER, DAUGHTER HOUSTON VIA PHONE WITH CM ICE CREAM VAULT WORKER, UNIT NURSE ROULETTE DEALER, REPIRATORY THERAPIST AND ICE CREAM VAULT WORKER OF THERAPY SERVICES REGARDING DISCHARGE PLANNING. CONCERNS OF PT'S PLAN TO GO HOME IN CURRENT CONDITION DISCUSSED. PT AND DAUGHTER HAVE ALREADY ASKED FOR REFERRAL TO [facility], CM HAS SENT IT AND WAITING DETERMINATION. PLAN "B" WAS AGREED TO BE NURSING FACILITY IF NOT ACCEPTED TO [facility] AND THAT CM WOULD ATTEMPT TO FIND ONE THAT MAY DONATE REHAB SERVICES. PT'S DAUGHTER IS RESEARCHING [employer] FROM [employer] FOR REHAB SERVICES. CM WAITING ADMISSION DETERMINATION FROM [facility] IN [place]. Sandor Butt, CASE MANAGEMENT DCP- Discharge Planning Updated by [id number]: Sandor Butt on 05/25/19 2:[address] Patient Name: TROY HAYWOOD Encounter No: [id number] : 1955 Primary Insurance: MEDICAID [facility] Date: Planned Disposition: Home HEALTH External Planned Provider: [facility] [address], VISITING [facility] DC follow-up note: CM MET WITH PT IN ROOM TO DISCUSS DISCHARGE NEEDS AND PLANNING. CM DISCUSSED AVAILABILITY OF HOME HEALTH, REHAB SERVICES AND MEDICAL EQUIPMENT. PT REFUSES CARE HOME FACILITY PLACEMENT. PT STATES PLAN TO RETURN HOME. 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 PT WAS ABLE TO AMBULATE SMALL DISTANCES AND TRANSFER SELF FROM BED TO ELECTRIC WHEELCHAIR AT HOME. PT THINKS SHE IS GOING TO BE ABLE TO TRANSFER SELF TO GO BACK HOME. PT WANTS HOME HEALTH RESUMED TO GO HOME. CM EXPRESSED CONCERN OF PT'S CURRENT LEVEL OF FUNCTIONING AND RETURNING HOME. PT DENIES HAVING FRIENDS OR FAMILY TO ASSIST WITH HER CARE AT HOME BUT IS NOT GOING TO A [facility]. PT THINKS SHE WILL NEED AN AMBULANCE FOR TRANSPORT HOME HER ELECTRIC WHEELCHAIR IS THERE. CM EXPLAINED TO PT THAT SHE WILL NEED TO DEMONSTRATE WITH THERAPY THE ABILITY TO TRANSFER AND SIT IN CHAIR FOR DISCHARGE. PT STATED UNDRESTANDING. CHOICE FOR [facility] VISITING NURSES HOME HEALTH SIGNED. 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 PT REFUSED NURSING FACILITY PLACEMENT. PT WILL NEED TO DEMONSTRATE ABILITY TO TRANSFER AND SIT IN CHAIR FOR DISCHARGE SHE HAS ELECTRIC WHEELCHAIR AT HOME. CM TO ARRANGE HOME HEALTH RESUMPTION WITH [facility] VISITING NURSES [place] IN [place] FOR DISCHARGE HOME. CM TO CONTINUE TO FOLLOW AND ASSIST NEEDED. Sandor Butt, CASE MANAGEMENT DCP- Discharge Planning Updated by [id number]: Aleisha Monroe on 05/19/19 7:[address] Patient Name: TROY HAYWOOD Admission Status: ER Accout number: [id number] Admission Date: 05-14-2019 : 1955 Admission Diagnosis: Attending: FABIO PINEDA Current LOS: 5 Anticipated DC Date: Planned Disposition: Home or Self Care Primary Insurance: MEDICAID [place] Discharge Planning Comments: CM met with patient and daughter to complete initial dc planning assessment. Patient recently extubated earlier today. CM educated patient on the CM role and verbal consent given by patient to complete assessment. Patient lives at home with her two young grand-daughters where she is independent with her care. At discharge patient plans to return home and feels this is a safe discharge. CM discussed availability of home health, rehab services, and medical equipment. Patient has Home 02 and HH with unknown providers. CM will f/u with patient @ later date to see if she is able to give providers. Patient denied known discharge needs at this time. CM will continue to follow and will assist as needed with dc plans/needs. Central Office Trouble Shooter: Aleisha Monroe DCPIA - Discharge Planning Initial Assessment Updated by [id number]: Sandor Butt on 05/28/19 9:36 am * How many steps to enter\\exit or inside your home? * PCP uncertain ? * Pharmacy [facility] * Preadmission Environment Home with Family * ADLs Independent * Other Equipment HOME 02, WALKER, SCOOTER, BSC, SC * List name and contact numbers for known caregivers / representatives who currently or will assist patient after discharge: CHEPE SUN - DAUGHTER- [phone] HOUSTON SALGADO, DTR - [phone] * Verbal permission to speak to the caregivers and representatives has been obtained from the patient. Yes * Community resources currently utilized Home Health * Please name any agencies selected above. [facility] * Additional services required to return to the preadmission environment? No * Can the patient safely return to the preadmission environment? Yes * Has this patient been hospitalized within the prior 30 days at any hospital? No External Providers External Provider: OTHER-OTHER Next Contact Date: 06/22/2019 Service Request Date: Service Type: Resolution: Reviewer: Comments: Coverage Notice Reviewer: [id number] Josef Butt Notice Issued Date-Time: 05/25/2019 14:05 Notice Type: Patient Choice Letter Notice Delivered To: Patient Relationship to Patient: Emu Farm Worker Name: Delivery Method: HAND - Hand Delivered Marry Days: Prior Verbal Notification: Recipient Understood Notice: Yes Recipient Signature: Yes Med Rec Note Co-signed by Attending: Coverage Notice Comment: [facility]- [facility]ISITING [facility] ([facility]) Reviewer: NAYLA Butt Notice Issued Date-Time: 05/31/2019 14:50 Notice Type: Patient Choice Letter Notice Delivered To: Patient Relationship to Patient: Emu Farm Worker Name: Delivery Method: HAND - Hand Delivered Marry Days: Prior Verbal Notification: Recipient Understood Notice: Yes Recipient Signature: Yes Med Rec Note Co-signed by Attending: Coverage [facility]: [facility] Reviewer: NAYLA Butt Notice Issued Date-Time: 06/09/2019 9:55 Notice Type: Patient Choice Letter Notice Delivered To: Patient Relationship to Patient: Emu Farm Worker Name: Delivery Method: HAND - Hand Delivered Marry Days: Prior Verbal Notification: Recipient Understood Notice: Yes Recipient Signature: Yes Med Rec Note Co-signed by Attending: Coverage Notice Comment: [facility] OR ANY ACCEPTING CARE HOME FACLITY Reviewer: NAYLA Butt Notice Issued Date-Time: 06/10/2019 16:25 Notice Type: Patient Choice Letter Notice Delivered To: Patient Relationship to Patient: Emu Farm Worker Name: Delivery Method: HAND - Hand Delivered Marry Days: Prior Verbal Notification: Recipient Understood Notice: Yes Recipient Signature: Yes Med Rec Note Co-signed by Attending: Coverage Notice Comment: [facility] [employer] Reviewer: NAYLA Butt Notice Issued Date-Time: 06/17/2019 13:55 Notice Type: Patient Choice Letter Notice Delivered To: Patient Relationship to Patient: Emu Farm Worker Name: Delivery Method: HAND - Hand Delivered Marry Days: Prior Verbal Notification: Recipient Understood Notice: Yes Recipient Signature: Yes Med Rec Note Co-signed by Attending: Coverage Notice Comment: ANY ACCEPTING CARE HOME FACILITY Reviewer: NAYLA Butt Notice Issued Date-Time: 06/18/2019 14:16 Notice Type: Patient Choice Letter Notice Delivered To: Patient Relationship to Patient: Emu Farm Worker Name: Delivery Method: HAND - Hand Delivered Marry Days: Prior Verbal Notification: Recipient Understood Notice: Yes Recipient Signature: Yes Med Rec Note Co-signed by Attending: Coverage Notice Comment: [facility] PATIENT Last DP export: 06/21/19 3:27 Patient Name: TROY HAYWOOD Page [id number] at 1215 All edits/amendments must be made on the electronic document DICTATION DATE: 06/22/191213 FILM COMPOSER: MISHEL 06/22/191213 RPT#: [id number] DC DATE: STATUS: ADM IN [facility] [address] [place] [address] END OF REPORT
--- NOTE | 2019-06-22 12:33 | NUR ---
DR ARROYO IS HERE ON FLOOR FOR NEW ORDERS.
[2019-06-22] MEDS ORDERED: PRAVACHOL40 MG (12:35)
[2019-06-22] MEDS ORDERED: PLAVIX75 MG PO (12:35)
[2019-06-22] MEDS ORDERED: BAYER CHEWABLE81 MG PO (12:36)
--- NOTE | 2019-06-22 13:23 | NUR ---
CALLED AND SPOKE TO CLINTON AT [facility]. REPORT GIVEN TO CLINTON AT THIS TIME. [phone].
--- NOTE | 2019-06-22 13:32 | NUR ---
CALLED [email or web address] AND REQUESTED PATIENT TO BE TRANSPORTED. ALL INFORMATION PROVIDED REQUESTED. DUE TO THE DISTANCE PATIENT IS BEING SENT, [employer] AUDIT CONTROL CLERK STATES THAT THE PATIENT MAY END UP NOT BEING TRANSFERRED UNTIL THE NIGHT CREW COMES ONE. [employer] DISPATCHER WILL SPEAK WITH HER ASSESSMENT RN WHO IS OUT ON A CALL RIGHT NOW AND GIVE THIS DIAGNOSTIC TECHNICIAN A CALL BACK.
--- NOTE | 2019-06-22 13:48 | NUR ---
DISCHARGE INSTRUCTIONS PROVIDED TO PATIENT. PATIENT VERBALIZED UNDERSTANDING OF ALL INSTRUCTIONS PROVIDED. PATIENT IS NOW WAITING FOR [facility] TO PICK HER UP.
--- NOTE | 2019-06-22 14:11 | MORECARE ---
CASE MANAGEMENT DISCHARGE SUMMARY PATIENT: TROY HAYWOOD UNIT: [id number] ADM DATE: 05/14/19 AGE: 64 : [birth year] SEX: F ROOM/BED: D.2140 AUTHOR: IRON NAYLOR PHYSICIAN: REFERRING PHYSICIAN: FABIO PINEDA MD DATE OF SERVICE: 06/22/19 Discharge Plan Patient Name: TROY HAYWOOD Facility: [facility]:[place] : 1955 Planned Disposition: Nursing Facility [facility] Anticipated Discharge Date: 06/22/19 Discharge Date: Expected LOS: 39 Initial Reviewer: [email or web address] Initial Review Date: 05/19/2019 Generated: 06/22/19 3:11 pm Comments DCP- Discharge Planning Updated by [id number]: Sandor Butt on 06/22/19 1:[address] Patient Name: TROY HAYWOOD Encounter No: [id number] : 1955 Primary Insurance: MEDICAID [place] Anticipated DC Date: 06-22-2019 Planned Disposition: Nursing Facility [facility] Cert External Planned Provider: [facility], BAG PATCHER CARE MEDICAID BED DCP follow-up note: FOR CM RECEIVED DISCHARGE ORDER. CM FAXED DISCHARGE INFORMATION TO [phone]. CM RECEIVED CALL FROM BARBARA OF [facility] WHO INFORMED CM THAT THEY HAVE ALL NEEDED EQUIPMENT FOR PT'S CARE AND NEED THE BIPAP SETTINGS. CM PROVIDED VERBALLY AND THEN FAXED THE BIPAP SETTINGS TO [facility]. CM RECEIVED REQUEST TO MEET WITH PT, PT STATES THAT SHE CALLED THE FACLITY THIS MORNING AND WAS TOLD THEY DO NOT HAVE A BIPAP OR NEBULIZER FOR HER. CM ASSURED PT THAT CM WAS ADVISED THE FACILITY HAS [facility]. PT ASKED ABOUT HAVING SCD'S AT THE FACILITY. CM EXPLAINED THAT IF REQUIRED, THE FACILITY SHOULD PROVIDE THEM, HOWEVER, THE FACILITY SHOULD BE MOBILIZING PT PT'S GOAL IS TO GO HOME AFTER 30 DAYS. PT ASKED ABOUT HAVING THE STITCH FROM HER CENTRAL LINE REMOVED THAT THE NURSE MISSED WHEN THEY ORIGINALLY TOOK THEM OUT. PT'S DAUGHTER SPOKE UP, SHE WAS ON SPEAKER PHONE DURING THE WHOLE CONVERSTATION WITHOUT KNOWLEGE OF CM. DAUGHTER REPORTS THAT NO ADDITIONAL ORDERS SHOULD BE NEEDED TO REMOVE THE STITCH AND SHOULD BE COVERED UNDER THE ORIGINAL ORDER. PT DENIES FURHTER NEEDS AND IS IN AGREEMENT WITH PLACEMENT AT [facility]. NURSE REPORT TO BE CALLED TO [facility], . PT TO TRANSPORT VIA AMBULANCE. [facility], [address] [place] [address]. [id number]. Sandor Butt CASE MANAGEMENT DCP- Discharge Planning Updated by [id number]: Sandor Butt on 06/21/19 3:[address] Patient Name: TROY HAYWOOD Encounter No: [id number] : 1955 Primary Insurance: MEDICAID [facility] DC Date: 06-22-2019 Planned Disposition: Nursing Facility [facility] Cert External Planned Provider: [facility], BAG PATCHER CARE MEDICAID BED DCP follow-up note: CM RECEIVED CALL FROM BARBARA OF [facility], THEY HAVE ALL EQUIPMENT AND CAN ACCEPT PT TOMORROW, 06-21-19. CM NOTIFIED PT. PT WILLING FOR PLACEMENT, WANTS CM TO CHECK WITH [facility] AND IF SHE CANNOT GET PLACEMENT IN [place], THEN SHE WILL GO TO [place]. CM CALLED AND SPOKE TO OJ OF [facility], THEY ARE NOT ABLE TO TAKE PT FOR PLACEMENT. CM RECEIVED MESSAGE FROM [facility], SHE HAS NOT HOMES IN [place] TO ACCEPT PT AT THIS TIME. CM NOTIFIED CHEPE SUN - DAUGHTER- [phone]. CHEPE IN AGREEMENT WITH PLACEMENT IN [place] AND REPORTS IT IS 2 1/2 HOURS FROM [place]. CM NOTIFIED PT WHO IS IN AGREEMENT WITH PLAN. TOBY CANNON AND DR. LONG NOTIFIED. CM FAXED UPDATE TO [facility], . CM PROVIDED PT WITH FACILITY ADDRESS AND PHONE NUMBER. FOR DISCHARGE 06-22-19. FAX DISCHARGE INFORMATION TO [phone]. NURSE REPORT TO BE CALLED TO [facility], . PT TO TRANSPORT VIA AMBULANCE. [facility], [address] [place] [address], [place]. [address]. Sandor Butt CASE MANAGEMENT DCP- Discharge Planning Updated by [id number]: Sandor Butt on 06/18/19 2:[address] Patient Name: TROY HAYWOOD Encounter No: [id number] : 1955 Primary Insurance: MEDICAID [facility] DC Date: 06-11-2019 Planned Disposition: Nursing Facility [facility] Cert External Planned Provider: [facility] ACCEPTING FACILITY, BAG PATCHER CARE MEDICAID BED DCP follow-up note: CM RECEIVED CALL FROM [email or web address], , SPOKE TO [place] WHO INFORMED CM THEY ARE CONSIDERING PT FOR TREY THERAPY WITH THE HALF-WAY CARE PLACEMENT, REQUESTED FINANDICAL INFORMATION. CM FAXED FINANCIAL INFORMATION TO [email or web address] AT [phone]. [facility], . MET WITH PT AND ASSISTED WITH APPLICATION FOR "[facility]" MEDICARE AND IS STILL WORKING TO GET PT INTO ONE OF HER NURSING HOMES FOR THERAPY SERVICES. CM RECEIVED CALL FROM [facility], SHE HAS A FACILITY IN [facility] THAT IS A NON PROFIT AND THEY ARE CONSIDERING PT FOR TREY REHAB SERVICES. PT HAS BEEN DECLINED BY [facility] INPATIENT REHAB (TREY CARE), [facility] INPATIENT REHAB (TREY CARE), [facility] INPATIENT REHAB (PRIVATE PAY), [facility] AND [facility]. - CM WAITING ADMISSION DETERMINATION FROM [facility] FOR HALF-WAY CARE PLACEMENT IN ONE OF HER AFFILIATED NURSING HOMES. - CM WAITING ADMISSION DETERMINATION FROM [facility] FOR HALF-WAY CARE. - CM WAITING DETERMINATION FROM TROY MIMS OF [facility] FOR HALF-WAY CARE PLACEMENT IN ONE OF HER AFFILIATED NURSING HOMES. Sandor Butt, CASE MANAGEMENT Appended by Sandor Butt on 06/18/2019 15:46 PERIODICALS LIBRARY ASSISTANT: CM RECEIVED ORDER FOR TRILOGY, SPOKE TO PT WHO REQUESTED [facility] [place] HER OXGYEN IS FROM THEM, IF NOT, [facility] OR [facility]. CM CALLED [facility] IN [facility], SPOKE TO TESS WHO REFERRED CM TO [facility] IN [place]. CM CALLED [facility] IN [place], , SPOKE TO MAHESH WHO INFORMED CM THAT MEDICAID WOULD COVER TRILOGY, THEY CAN PROCESS THE ORDER. CM FAXED ORDER TO [facility] AT [phone]. - CM WAITING TRILOGY ORDER PROCESSING AND HOSPITAL DELIVERY OF TRILOGY BY [facility]. - CM WAITING ADMISSION DETERMINATION FROM [facility] FOR HALF-WAY CARE PLACEMENT IN ONE OF HER AFFILIATED NURSING HOMES. - CM WAITING ADMISSION DETERMINATION FROM [facility] FOR HALF-WAY CARE. - CM WAITING DETERMINATION FROM RTOY MIMS OF [facility] FOR HALF-WAY CARE PLACEMENT IN ONE OF HER AFFILIATED NURSING HOMES. Sandor Butt, CASE MANAGEMENT DCP- Discharge Planning Updated by [id number]: Sandor Butt on 06/17/19 2:[address] Patient Name: TROY HAYWOOD Encounter No: [id number] : 1955 Primary Insurance: MEDICAID [facility] DC Date: 06-11-2019 Planned Disposition: Nursing Facility [facility] Cert External Planned Provider: FIRST ACCEPTING FACILITY, HALF-WAY CARE MEDICAID BED DCP follow-up note: CM RECEIVED PHONE MESSAGE FROM MITCH OF [facility], HE AND THE DOCTOR HAVE REVIEWED REFERRAL AND DECLINED PT. THEY DO NOT FEEL PT HAS MADE SIGNIFICANT PROGESS AND HAS NOT DEMONSTRATED ABILITY TO DO THREE HOURS OF PROGRESSIVE THERAPY. CM MET WITH PT IN ROOM, DISCUSSED DENIAL FOR INPATIENT REHAB BY [facility], DISCUSSED HALF-WAY CARE CUSTODIAL OPTIONS. PT DID SIGN CONSENT FOR ANY ALF FACILITY; PT ASKED CM TO KEEP PT CLOSE TO HOME POSSIBLE. CM EXPLAINED THAT A STATEWIDE SEARCH WILL BE DONE AND THAT ALL EFFORTS WILL BE MADE TO KEEP PT CLOSE TO [place] AND [place] POSSIBLE REQUESTED. CM CALLED PT'S DAUGHTER CHEPE AT PT'S REQUEST, NOTIFIED HER OF ABOVE INFORMATION. CHEPE AGREES THAT PT IS STILL NOT SAFE TO RETURN HOME IN HER CURRENT CONDITION AND AGREES WITH CUSTODIAL PLACEMENT FOR RESTORATIVE CARE. CM CALLED [facility], , SPOKE TO COR[place] WHO INFORMED CM THAT THEY DO BERIATRIC CARE. CM FAXED REFERRAL TO [facility] AT [phone]. CM FAXED REFERRAL UPDATE TO [facility], . CHAR INQUIRED ABOUT WHEN DID PT BEGIN RECEIVING SOCIAL SECURITY DISABILTY, PT STATES 15 YEARS AGO, INFORMATION PROVIDED TO CHAR. CM FAXED REFERRAL UPDATE TO [facility], . PT HAS BEEN DECLINED BY [facility] IN[facility]IENT REH[facility] (TREY CARE), [facility] INPATIENT REHAB ([facility]REY CARE), [facility] INPATIENT REHAB (PRIVATE PAY), [facility] HOME AND [facility]. - CM WAITING ADMISSION DETERMINATION FROM [facility] FOR BAG PATCHER CARE PLACEMENT IN ONE OF HER AFFILIATED NURSING HOMES. - CM WAITING ADMISSION DETERMINATION FROM [facility]. - CM WAITING DETERMINATION FROM TROY MIMS [facility] FOR BAG PATCHER CARE PLACEMENT IN ONE OF HER AFFILIATED NURSING HOMES. ROSANNA Monroe DCP- Discharge Planning Updated by [id number]: Sandor Butt on 06/17/19 8:[address] Patient Name: TROY HAYWOOD Encounter No: [id number] : 1955 Primary Insurance: MEDICAID [place] Anticipated DC Date: 06-11-2019 Planned Disposition: Nursing Facility [facility] Cert External Planned Provider: FIRST ACCEPTING FACILITY DCP follow-up note: CM ATTEMPTED TO EMAIL [employer] FOR UPDATE ON APPLICATION AT [email or web address]. THE EMAIL FAILED. CM FAXED REQUEST FOR UPDATE [facility] AT [phone] AND [phone]. - CM WAITING ADMISSION DETERMINATION FROM [facility] FOR HALF-WAY CARE PLACEMENT IN ONE OF HER AFFILIATED NURSING HOMES. - CM WAITING RETURN CALL FROM [facility] IN [place] REGARDING TREY REHAB. - CM WAITING DETERMINATION FROM TROY [facility] FOR BAG PATCHER CARE PLACEMENT IN ONE OF HER AFFILIATED NURSING HOMES. ROSANNA Monroe DCP- Discharge Planning Updated by [id number]: Sandor Butt on 06/16/19 4:[address] Patient Name: TROY HAYWOOD Encounter No: [id number] : 1955 Primary Insurance: MEDICAID [place] Anticipated DC Date: 06-11-2019 Planned Disposition: Nursing Facility [facility] Cert External Planned Provider: FIRST ACCEPTING FACILITY DCP follow-up note: CM FAXED REFERRAL UPDATE TO TROY [facility] FOR HALF-WAY CARE PLACEMENT AT [phone]. CM FAXED REFERRAL UDP[place] TO [facility] AT [phone]. CM FAXED UPDATE TO [facility] AT [phone] FOR HALF-WAY CARE PLACEMENT. - CM WAITING ADMISSION DETERMINATION FROM [facility] FOR HALF-WAY CARE PLACEMENT IN ONE OF HER AFFILIATED NURSING HOMES. - CM WAITING RETURN CALL FROM [facility] IN [place] REGARDING TREY REHAB. - CM WAITING DETERMINATION FROM TROY [facility] FOR HALF-WAY CARE PLACEMENT IN ONE OF HER AFFILIATED NURSING HOMES. Sandor Butt, CASE MANAGEMENT DCP- Discharge Planning Updated by [id number]: Sandor Butt on 06/15/19 3:[address] Patient Name: TROY HAYWOOD Encounter No: [id number] : 1955 Primary Insurance: MEDICAID [place] Anticipated DC Date: 06-11-2019 Planned Disposition: Nursing Facility [facility] External Planned Provider: FIRST ACCEPTING DCP follow-up note: CHRISTOPHER SENT MESSAGE TO TROY MIMS, , OF [facility] ASKING FOR HALF-WAY CARE PLACEMENT ASSISTANCE WITH REHAB IF POSSIBLE. CHRISTOPHER FAXED REFERRAL TO TROY AT [phone]. CM CALLED [facility], , HE HAS NOT BEEN ABLE TO GET A DETERMINATION ON TREY AND CANNOT LOCATE THE PERSON IN CORPORATE WHO HAS PT'S TREY APPLICATION. HE WILL CONTINUE TO TRY TO LOCATE WHO IS PROCESSING THE APPLICATION HE HAS NOT SEEN IT OR HEARD ANY DETERMINATION. CHRISTOPHER FAXED REFERRAL UDPATE TO [facility] AT [phone]. M FAXED UPDATE TO [facility] AT [phone]. CHAR INFORMED CM THAT SHE HAS NO BERIATRIC CUSTODIAL BED YET BUT IS HOPEUL TO HAVE AN OPENING "SOON". ASKED BY PT'S DAUGHTER, CM CALLED AND SPOKE TO RUT, , OF [facility] AND REQUESTED PRIVATE PAY DOWN PAYMENT AND MONTHLY PAYMENT AMOUNTS FOR REHAB AT [facility]. CM FAXED REFERRAL TO [facility] AT [phone]. - CM WAITING ADMISSION DETERMINATION FROM [facility] FOR HALF-WAY CARE PLACEMENT IN ONE OF HER AFFILIATED NURSING [facility]. - CM WAITING RETURN CALL FROM [facility] IN[facility] IN [place] REGARDING TREY REHAB. - CM WAITING DETERMINATION FROM [facility] FOR HALF-WAY CARE PLACEMENT IN ONE OF HER AFFILIATED NURSING HOMES. Sandor Butt, CASE MANAGEMENT Appended by Sandor Butt on 06/15/2019 16:28 PERIODICALS LIBRARY ASSISTANT: CM FAXED [facility] TREY APPLICATION TO [facility] [place]. CM SPOKE TO TROY OF [facility] WHO EXPLAINED SHE IS CONTINUING TO LOOK FOR CUSTODIAL PLACEMENT; THE OBSTACLE IS THE COSTS OF RENTING BIPAP AND OTHER BERIATRIC EQUIPMENT. CM SPOKE TO RUT OF [facility] INPATIENT REHAB, THEY WILL NOT CONSIDER PATIENT FOR REHAB ON PRIVATE PAY BASIS AND WOULD DENY PATIENT REGARDLESS DUE TO HER "ENTIRE SITUATION". CM NOTIFIED PT AND DAUGHTER IN ROOM OF PROGRESS AND LACK THEREOF. CM ASKED TO SEND REFERRALS TO OTHER NURSING FACILITIES, PT REFUSED STATING SHE WANTS TO WAIT FOR DEFINITE ANSWER FROM [facility] FOR TREY REHAB SERVICES. - CM WAITING ADMISSION DETERMINATION FROM [facility] FOR BAG PATCHER CARE PLACEMENT IN ONE OF HER AFFILIATED [facility]. - CM WAITING RETURN CALL FROM [facility] IN [place] REGARDING TREY REHAB. - CM WAITING DETERMINATION FROM TROY MIM[facility] OF [facility] FOR HALF-WAY CARE PLACEMENT IN ONE OF HER AFFILIATED NURSING HOMES. ROSANNA Monroe MANAGEMENT DCP- Discharge Planning Updated by [id number]: Sandor Butt on 06/11/19 3:[address] Patient Name: TROY HAYWOOD Encounter No: [id number] : 1955 Primary Insurance: MEDICAID [place] Anticipated DC Date: 06-11-2019 Planned Disposition: Nursing Facility [facility] External Planned Provider: : DCP follow-up note: CM RECEIVED MESSAGE FROM TROY OF [facility], THEY WILL NOT ACCEPT PT. CM FAXED REFERRAL UDPATE TO [facility] AT [phone]. CM FAXED UPDATE TO [facility] AT [phone]. CHAR INFORMED CM THAT SHE ANTICIPATES A BERIATRIC CUSTODIAL BED OPENING "SOON". CM NOTIFIED PT AND DAUGHTER OF PROGRESS / LACK THEREOF IN ROOM. - CM WAITING ADMISSION DETERMINATION FROM [facility] FOR HALF-WAY CARE PLACEMENT IN ONE OF HER AFFILIATED [facility]. - CM WAITING RETURN CALL FROM [facility] IN [place] REGARDING TREY REHAB. Sandor Daquan, CASE MANAGEMENT DCP- Discharge Planning Updated by [id number]: Sandor Butt on 06/10/19 3:[address] Patient Name: TROY HAYWOOD Encounter No: [id number] : 1955 Primary Insurance: MED[place]ID [place] Anticipated DC Date: 06-11-2019 Planned Disposition: Nursing Facility [facility] External Planned Provider: FIRST ACCEPTING FACILITY DCP follow-up note: - CM RECEIVED CALL FROM [facility], THEY HAVE NOT AVAILABILITY FOR TREY REHAB BED. CM RECEIVED CALL FROM [facility], THEY HAVE NOT RECEIVED TREY APPLICATION AND HAVE NO CURRENT BEDS BUT WOULD CONSIDER PT. CM RETURNED CALL TO MITCH AT [facility], , INFORMED THAT TREY APPLICATION HAD BEEN FAXED TO [facility] IN [facility], TELEPHONE CONTACT [phone]. HETAL ASKED FOR REFERRAL TO BE SENT AND HE WILL SCREEN FOR ADMISSION. CM FAXED REFERRAL TO [facility] AT [phone]. CM NOTIFIED PT AND DAUGHTER OF PROGRESS IN ROOM. PT AND DAUGHTER ASKED FOR CM TO SEND REFERRAL TO [facility] IN [place]. CHOICE SIGNED. CM FAXED REFERRAL TO [facility] VIA [facility] AT [phone]. - CM WAITING ADMISSION DETERMINATION FROM [facility] FOR BAG PATCHER CARE PLACEMENT IN ONE OF HER AFFILIATED NURSING HOMES. - CM WAITING RETURN CALL FROM [facility] IN[facility] IN [place] REGARDING TREY REHAB. - CM WAITING ADMISSION DETERMINATION FROM [facility] ALF [facility]. Sandor Butt CASE MANAGEMENT DCP- Discharge Planning Updated by [id number]: Sandor Butt on 06/09/19 3:[address] Patient Name: TROY HAYWOOD Encounter No: [id number] : 1955 Primary Insurance: MEDICAID [place] Anticipated DC Date: 06-10-2019 Planned Disposition: Nursing Facility [facility] Cert External Planned Provider: FIRST ACCEPTING FACILITY DCP follow-up note: CM SPOKE TO PT AND DAUGHTER, CHEPE, THEY WILL LET CM SEEK CUSTODIAL PLACEMENT FOR THEM TO CONSIDER BUT STILL DO NOT WANT HALF-WAY CARE IF THEY CAN OBTAIN REHAB THROUGH THE [facility]. DAUGHTER ADVISED SHE HAS CONFIRMED RECEIPT OF THE APPLICATION FAXED TO THE [facility] AND IS IN PROCESS OF REVIEW. DAUGHTER ASKED CM TO CHECK INTO REHAB'S THAT MAY HAVE [facility] AFFILIATION. CM CALLED [facility], , REQUESTED ASSISTANCE IN HALF-WAY CARE PLACEMENT WITH INTENT TO RETURN HOME. CHAR STATES THAT SHE MAY HAVE HOME'S WILL ACCEPT BARIATRIC PATIENT AND WILL ATTEMPT PLACEMENT. CHAR WILL MEET WITH PT LATER TODAY. CM FAXED REFERRAL TO [facility] AT [phone]. CM SPOKE TO TROY [facility] OF [facility], TROY INFORMED CM THAT SHE HAS NO HOMES IN HER GROUP THAT MAY ASSIST WITH PLACEMENT. CM CALLED [facility] INPATIENT OF [place], WAS ADVISED BY [facility] THAT THEY WILL NOT CONSIDER FOR TREY CARE, THEY ARE NOT AFFILIATED WITH [facility]. CM CALLED [facility], , SPOKE TO CHELO WHO INFORMED CM THAT THEY ARE NOT AFFILIATED WITH [facility] BUT WILL CONSIDER PT FOR TREY REHAB. CM FAXED REFERRAL TO [facility] AT [phone]. CM CALLED [facility] IN [place], , SPOKE TO DHEERAJ WHO REPORTS THEY HAVE NO OPEN REHAB BEDS AND HAVE NO PROJECTED DISCHARGES SOON. THEY DO NOT HAVE WEIGHT LIMITS. DHEERAJ DID NOT WANT REFERRAL FAXED, SHE WILL REPORT TO BREN WHO WILL CHECK WITH THE [facility] REGARDING APPLICATION STATUS AND CALL CM TOMORROW, 06-10-19. CM NOTIFIED PT IN ROOM OF PROGRESS. PT STATES SHE MAY BE ABLE TO TRANSFER SELF AND GO HOME BEFORE CM FINDS REHAB FOR HER. - CM WAITING ADMISSION DETERMINATION FROM [facility] FOR BAG PATCHER CARE PLACEMENT IN ONE OF HER AFFILIATED NURSING HOMES. - CM WAITING ADMISSION DETERMINATION FROM [facility] FOR TREY REHAB BED. - CM WAITING RETURN CALL FROM [facility] IN [place] REGARDING TREY REHAB. Sandor Butt, CASE MANAGEMENT DCP- Discharge Planning Updated by [id number]: Sandor Butt on 06/04/19 4:[address] Patient Name: TROY HAYWOOD Encounter No: [id number] : 1955 Primary Insurance: MEDICAID [facility] DC Date: 06-02-2019 Planned Disposition: Nursing Facility [facility] External Planned Provider: TO BE DETERMINED DCP follow-up note: CM SPOKE TO PT AND DAUGHTER CHEPE, IN ROOM. PT IS AND FOR PAST 10 YEARS, BUT NOT LEGALLY. THEY CANNOT QUALIFY FOR MEDICAID FOR BAG PATCHER CARE DUE TO NOT HAVING SPOUSE FINANICAL INFORMATION. PT AND DAUGHTER BOTH STATE THAT THEY DO NOT WANT TO PUT PT INTO HALF-WAY CUSTODIAL CARE WHERE SHE WILL JUST LAY IN THE BED. THEY DO NOT WANT FURTHER CUSTODIAL REFERRALS FAXED OUT. CM DISCUSSED THAT PT IS STABLE FOR DISCHARGE MEDICALLY. PT'S DAUGHTER REPORTS PT IS NOT HAVING BOWEL MOVEMENTS AND THAT THE FECES COMING OUT IS COMING AROUND AN IMPACTION AND NO ONE IS ADDRESSING THIS. CM NOTIFIED TOBY THOMAS WHO PROVIDED ORDERS FOR MEDICATION TO TREAT CONDITION. BEDSIDE NURSE NOTIFIED. PT'S DAUGHTER PROVIDED CM WITH 77 PAGES AND ASKED CM TO FAX TO [facility] FOR FINANCIAL ASSISTANCE REGARDING REHAB SERVICES FOR PT. CM FAXED TO [facility] FINANCIAL ASSISTANCE PROGRAM AT [phone]. PT'S DAUGHTER ADVISED THAT IF APPROVED, PT WILL HAVE TO GO TO A [facility] CENTER FOR REHAB. PT WAS DECLINED BAG PATCHER CARE PLACEMENT AT [facility]; PT AND FAMILY DECLINE TO HAVE FURTHER REFERRALS SENT OUT. FAMILY IS TRYING TO SECURE FINANCIAL ASSISTANCE FOR REHAB SERVICES THROUGH [facility]. CM TO CONTINUE TO FOLLOW AND ASSIST. Sandor Butt, CASE MANAGEMENT DCP- Discharge Planning Updated by [id number]: Sandor Butt on 06/04/19 11:[address] Patient Name: TROY HAYWOOD Encounter No: [id number] : 1955 Primary Insurance: MEDICAID [facility] DC Date: 06-02-2019 Planned Disposition: Nursing Facility [facility] External Planned Provider: WAITING FAMILY DECISION DCP follow-up note: CM RECEIVED CALL FROM ANNIE OF [facility] WHO ADVISED CM THAT PT HAS BEEN FIANCIALLY DENIED FOR PLACEMENT. CM SPOKE TO PT IN ROOM WHO ADVISED THAT SHE UNDERSTOOD THEY WERE JUST GOING TO LEAVE HER LAYING IN BED FOR A MONTH AND NOT GIVE HER ANY REHAB SERVICES. CM EXPLAINED THAT MEDICAID DOES NOT PAY FOR REHAB SERVICES, ONLY BAG PATCHER CARE AND PT WOULD RECEIVE WHAT THEY CALL "RESTORATIVE CARE" FROM STAFF AT ANY CUSTODIAL, NOT THERAPY SERVICES. PT STATES SHE IS NOW ABLE TO STAND UP WITH THERAPY HERE. CM EXPLAINED THAT PT IS GETTING 8 TO 16 MINUTES OF THERAPY PER DAY AND THAT ALTHOUGH CM WAS HAPPY WITH PROGRESSION, PT IS MEDICALLY STABLE TO LEAVE THE HOSPITAL AND THAT SHE WOULD RECEIVE MORE THERAPY AT HOME WITH HOME HEALTH THAN IN THIS ACUTE HOSPITAL SETTING. PT STATES SHE IS NOT SURE WHAT HAPPENED, THAT CHEPE IS TAKING CARE OF THIS FOR HER AND THAT CHEPE WILL BE TO THE HOSPITAL IN A LITTLE WHILE TO SPEAK TO CM; PT BELIVES THAT CHEPE IS AGAIN WORKING ON TRYING TO GET TREY REHAB CARE THROUGH THE [facility]. PT HAS BEEN FINANCIALLY DECLINED FOR [facility]F-WAY CARE PLACEMENT BY [facility]. PT DEFERRING PLANNING TO HER DAUGHTER, CHEPE. CM WAITING FAMILY TO ARRIVE TO DISCUSS FURTHER DISCHARGE PLANNING. ROSANNA Monroe DCP- Discharge Planning Updated by [id number]: Sandor Butt on 06/03/19 7:[address] Patient Name: TROY HAYWOOD Encounter No: [id number] : 1955 Primary Insurance: MEDICAID [place] Anticipated DC Date: 06-02-2019 Planned Disposition: Nursing Facility [facility] External Planned Provider: [facility], HALF-WAY CARE MEDICAID BED DISCHARGE PLANNING NOTE: CM FAXED REFERRAL UPDATE TO [facility] AT [phone]. CM WAITING ADMISSION DETERMINATION FROM [facility] FOR BAG PATCHER CARE. WAITING FAMILY TO PROVIDE FINANCIAL INFORMATION FOR BAG PATCHER CARE MEDICAID APPLICATION TO FACILITY. ROSANNA Monroe DCP- Discharge Planning Updated by [id number]: Sandor Butt on 06/02/19 3:[address] Patient Name: TROY HAYWOOD Encounter No: [id number] : 1955 Primary Insurance: MEDICAID [place] Anticipated DC Date: 06-02-2019 Planned Disposition: Nursing Facility [facility] External Planned Provider: [facility], HALF-WAY CARE MEDICAID BED DCP follow-up note: CM FAXED REFERRAL UPDATE TO [facility] AT [phone]. CM WAITING ADMISSION DETERMINATION FROM [facility] FOR HALF-WAY CARE. Sandor Butt, CASE MANAGEMENT Appended by Sandor Butt on 06/02/2019 16:50 PERIODICALS LIBRARY ASSISTANT: CM RECEIVED CALL FROM LUIS OF [facility], , THEY RECEIVED THE UPDATE BY FAX AND WILL CONTACT FAMILY REGARDING FINANCIALS. LUIS REPORTS THEY ARE STILL WAITING ON NURSING TO ACCEPT FOR [facility]ER [facility]ARE AND WILL ALSO NEED FINANCIAL CLEARANCE TO ENTER THE FACILITY. CM WAITING ADMISSION DETERMINATION FROM [facility] FOR [facility]F-W[facility] CARE. JEANERETTE CONTACTING FAMILY TO ASSIST WITH FINANCIAL INFORMATION FOR BAG PATCHER CARE MEDICAID APPLICATION. Sandor Butt CASE MANAGEMENT DCP- Discharge Planning Updated by [id number]: Sandor Butt on 06/01/19 4:[address] Patient Name: TROY HAYWOOD Encounter No: [id number] : 1955 Primary Insurance: [place]ID [place] Anticipated DC Date: 06-02-2019 Planned Disposition: Nursing Facility [facility] Cert External Planned Provider: [facility] MEDICAID BED DCP follow-up note: CM MET WITH PT AND DAUGHTER [place], WHO HAS MADE IT FROM [place]. UPDATE PROVIDED. CM CALLED [facility], [place] INFORMED CM THAT REFERRAL FROM AND [facility] WAS RECEIVED, STAFF IN MEETING TODAY AND THEY WILL FINISH ADMISSION REVIEW TOMORROW, 06-02-19. CM NOTIFIED PT AND DAUGHTER IN ROOM. CM WAITING ADMISSION DETERMINATION FROM [facility] FOR HALF-WAY CARE. Sandor Butt CASE MANAGEMENT DCP- Discharge Planning Updated by [id number]: Sandor Btut on 05/31/19 3:[address] Patient Name: TROY HAYWOOD Encounter No: [id number] : 1955 Primary Insurance: [place] Anticipated DC Date: 06-01-2019 Planned Disposition: Nursing Facility [facility] Cert External Planned Provider: [facility], HALF-WAY [facility] MEDICAID BED DCP follow-up note: AFTER SEVERAL VISITS WITH PT IN ROOM, PHONE CALLS WITH DAUGHTERS, Stratopy [facility] AND [facility], PT DECIDED TO CONSENT TO 30 DAYS OF HALF-WAY CARE AT [facility] AFTER PT'S DAUGTHERS, WITH AIDE OF [facility], LOCATED [facility] WHO WILL CONSIDER PT FOR CARE. PT SIGNED CHOICE. CM FAXED REFERRAL INFORMATION TO JE[facility]ER[facility]TE AT [phone]. CM WAITING ADMISSION DETERMINATION FROM [facility] AND [facility] FOR BAG PATCHER CARE. Sandor Butt CASE MANAGEMENT DCP- Discharge Planning Updated by [id number]: Sandor Butt on 05/28/19 3:[address] Patient Name: TROY HAYWOOD Encounter No: [id number] : 1955 Primary Insurance: [place] Anticipated DC Date: 06-02-2019 Planned Disposition: Home with Home Health External Planned Provider: [facility] DCP follow-up note: CM RECEIVED CALL FROM PT'S DAUGHTER, CHEPE, WHO VERIFIED THAT SHE WILL COME NEXT WEEK TO STAY WITH PT FOR TWO OR THREE WEEKS TO CARE FOR PT AT HOME. CHEPE WILL DISCUSS WITH HER MOTHER THAT SHE WILL HAVE TO BE ABLE TO STAND AND TRANSFER FOR CHEPE TO CARE FOR HER. CM REVIEWED THERAPY NOTES TO PRESENT. 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 PT HAS BEDSIDE COMMODE AND WHEELCHAIR AT HOME. CHEPE REPORTS NEED OF [facility] RESUMPTION. CHEPE WILL DISCUSS WITH PT AND TRY TO MOTIVATE HER TO MEET THERAPY GOALS PRIOR TO ARRIVAL ON NEXT FRIDAY OR FRIDAY. PT'S DAUGHTER PLANS TO TAKE PT HOME NEXT FRIDAY OR FRIDAY, THEY WILL NEED [facility] RESUMPTION, DENIES FURTHER NEEDS. CM TO FOLLOW AND ASSIST NEEDED. Sandor Butt, CASE MANAGEMENT DCP- Discharge Planning Updated by [id number]: Sandor Butt on 05/28/19 2:[address] Patient Name: TROY HAYWOOD Encounter No: [id number] : 1955 Primary Insurance: [place] Anticipated DC Date: Planned Disposition: Nursing Facility [facility] External Planned Provider: TO BE DETERMINED DCP follow-up note: [facility], SHE INFORMED CM THAT UPDATES HAVE BEEN RECEIVED, PT IS NOT MAKING ENOUGH PROGRESS WITH THERAPY THAT THEY DO NOT BELIEVE THAT PT WILL BE ABLE TO ACHIEVE THERAPY GOALS IN THE REMAINING 10 DAYS OF ACUTE DAYS THAT PT HAS REMAINING. CM NOTIFIED PT AND PROVIDED PT WITH NURSING FACILITY LISTING OF ALL AVAILABLE FACILITIES WITHIN [address] [place]. PT WILL SPEAK TO HER DAUGHTER AND NOTIFY CM OF HER CHOICES. CM CALLED [facility], , TWICE; AUTOMATED MESSAGE INFORMED CM THAT THE NUMBER WAS RESTRICTED OR CURRENTLY UNAVAILABLE. CM WAITING PT AND FAMILY TO PROVIDE NURSING FACILITY CHOICES FOR HALF-WAY CARE. Sandor Butt, CASE MANAGEMENT Appended by Sandor Butt on 05/28/2019 12:07 CDT: CM SPOKE TO PT IN ROOM, NOTIFIED PT THAT CM TRIED AND COULD NOT REACH DAUGHTER HOUSTON VIA PHONE. PT REPORTS SHE SPOKE TO [place] WHO TOLD HER THAT [facility] WILL NOT TAKE HER DUE TO WEIGHT; PT'S DAUGHTER TOLD PT THAT [facility] PROBAB[facility] WILL NOT TAKE HER. PT REPORTS THERE IS ONE IN [place] THAT MIGHT CONSIDER HER. CM OFFERED CHOICE FORM FOR SIGNATURE SO THAT CM COULD SEND REFERRALS AND BEGIN CALLING TO FIND PLACEMENT. PT REFUSED AND STATES SHE HAS A DAUGHTER, CHEPE, WHO IS A REGISTERED NURSE, THAT MAY BE COMING TO TAKE CARE OF PT AT HOME. PT'S DAUGHTER HOUSTON IS CALLING DAUGHTER CHEPE TO DISCUSS THE OPTION. PT STATES SHE WILL LET CM KNOW THE OUTCOME AND IF SHE WANTS CM TO EXPLORE CUSTODIAL CARE FOR HER. CM WAITING PT AND FAMILY TO PROVIDE NURSING FACILITY CHOICES AND FOR PT TO SIGN CONSENT FOR CUSTODIAL PLACEMENT. PT IS NOW HOPEFUL THAT HER DAUGHTER WHO IS A REGISTERED NURSE WILL COME AND STAY WITH PT AND TAKE CARE OF HER AT HOME. SANDOR BUTT, CASE MANAGEMENT Appended by Sandor Butt on 05/28/2019 14:27 CDT: CM RECEIVED MESSAGE THAT PT WANTS TO SEE CM. CM MET WITH PT IN ROOM WHO INFORMED CM THAT SHE HIS NOT GOING TO A CUSTODIAL, THAT HER DAUGHTER, CHEPE, WHO IS A NURSE, WILL BE HERE NEXT FRIDAY TO TAKE HER HOME AND WILL TAKE CARE OF PT AT HOME. PT ASKED FOR [facility] RESUMPTION. CM DISCUSSED POSSIBLE NEED OF DEBORAH LIFT AND ASKED ABOUT ADDITIONAL EQUIPMENT. PT THINKS BY NEXT WEEK, SHE WILL BE ABLE TO TRANSFER WITHOUT AIDE OF LIFT DEVICE. CM NOTIFIED DR. FREEDMAN WHO INFORMED CM THAT HE WILL ORDER BLOOD GAS ON FRIDAY TO DETERMINE RESPIRATORY DISCHARGE NEEDS AT THAT TIME. PT HAS SIGNED RIGHT OF CHOICE FOR [facility] ALREADY. PT REPORTS HER DAUGHTER, WHO IS A REGISTERED NURSE, WILL BE HERE FRIDAY OF NEXT WEEK TO TAKE CARE OF PT AT HOME. PT PLANS TO DISCHARGE HOME WITH FAMILY AND [facility]. CM TO FOLLOW AND ASSIST NEEDED. SANDOR BUTT, CASE MANAGEMENT DCP- Discharge Planning Updated by [id number]: Sandor Butt on 05/28/19 7:[address] Patient Name: TROY HAYWOOD Encounter No: [id number] : 1955 Primary Insurance: [place]ID [place] Anticipated DC Date: Planned Disposition: Inpatient Rehab External Planned Provider: [facility] DCP follow-up note: CM FAXED REFERRAL UPDATE TO [facility] AT [phone]. CM WAITING ADMISSION DETERMINATION FROM [facility] IN [place]. Sandor Butt CASE MANAGEMENT DCP- Discharge Planning Updated by [id number]: Sandor Butt on 05/27/19 2:[address] Patient Name: TROY HAYWOOD Encounter No: [id number] : 1955 Primary Insurance: [place]ID [place] Anticipated DC Date: Planned Disposition: Inpatient Rehab External Planned Provider: [facility] DCP follow-up note: CM FAXED REFERRAL UPDATE TO [facility] AT [phone]. CM WAITING ADMISSION DETERMINATION FROM [facility] IN [place]. Sandor Butt, CASE MANAGEMENT Appended by Sandor Butt on 05/27/2019 14:41 CDT: CM CALLED [facility], , LEFT MESSAGE ASKING FOR UPDATE ON REFERRAL AND TO KNOW IF THEY ARE STILL CONSIDERING PT FOR REHAB. CM WAITING ADMISSION DETERMINATION FROM [facility] IN [place]. Sandor Butt CASE MANAGEMENT DCP- Discharge Planning Updated by [id number]: Jesica Cartagena on 05/26/19 4:[address] Patient requested Trapeze bar to allow her to sit up in hospital bed. CM spoke Dr. Lawson and obtained approval for Trapeze bar. CM notified Radha in materials management of request for Trapeze bar. CM completed and gave Radha the order form for the Trapeze bar. Trapeze bar will be delivered. CM notified patient's CM, Christiano Butt, on status of Trapeze bar. DCP- Discharge Planning Updated by [id number]: Sandor Butt on 05/26/19 3:[address] Patient Name: TROY HAYWOOD Encounter No: [id number] : 1955 Primary Insurance: [place] Anticipated DC Date: Planned Disposition: Inpatient Rehab External Planned Provider: [facility] DCP follow-up note: CM SPOKE TO PT'S DAUGHTER VIA PHONE, HOUSTON SALGADO, . CM OBTAINED PERMISSION FROM PT TO DISCUSS CARE, TREATMENT AND DISCHARGE PLANNING WITH [place]. HOU[place]ON INFORMED CM THAT PT WAS IN REHAB AT [facility] LAST YEAR AND THEY WANT REFERRED TO [facility] AGAIN. CM DISCUSSED PT'S VERY LOW LEVEL OF PHYSICAL CONDITIONING. PT'S DAUGHTER FEELS THAT PT CAN PARTICIPATE WITH THERAPY WITH GOAL TO RETURN HOME PREVIOUS WITH ABILITY TO TRANSFER TO ELECTRIC SCOOTER AND HOME HEALTH FOR CONTINUED HOME SERVICES. [place]ON VERIFIED THAT PT HAS NO ADULTS ABLE TO LIVE WITH AND ASSIST PT AT HOME AT THIS TIME. [place]ON ASKED ABOUT [facility] REHAB SERVICES THAT MAY TAKE PT AT NO COSTS DUE TO INCOME. CM INFORMED HOU[place]ON THAT CM WAS NOT FAMILIAR WITH ANY OF THESE PROGRAMS. [place]ON WOULD LIKE TO HAVE PT EVALUATED FOR REHAB AT [facility] PRIOR TO ANY CONSIDERATION OF CUSTODIAL PLACEMENT PT WILL NOT GET THERAPY THERE. CM SPOKE TO PT WHO IS IN AGREEMENT WITH PLAN. CM CALLED [facility], , NOTIFIED OF REHAB REQUEST; PT HAS ONLY 24 ACUTE DAYS THAT STARTED IN JANUARY, IT DEPENDS ON HOW MANY HAVE BEEN ALREADY USED, PT'S CONDITION AND NEEDS THAT WOULD HAVE TO BE MET IN THE REMAINING DAYS THAT PT HAS TO USE FOR REHAB . CM FAXED REFERRALINFORMATION TO [facility] WITH CURRENT MAR AT [phone]. CM WAITING ADMISSION DETERMINATION FROM [facility] IN [place]. Sandor Butt, CASE MANAGEMENT Appended by Sandor Butt on 05/26/2019 15:24 CDT: CM MET WITH PT, GRANDDAUGHTER, DAUGHTER HOUSTON VIA PHONE WITH CM CRITICAL CARE NURSE SPECIALIST, UNIT NURSE OPTICAL ADVISOR, REPIRATORY THERAPIST AND CRITICAL CARE NURSE SPECIALIST OF THERAPY SERVICES REGARDING DISCHARGE PLANNING. CONCERNS OF PT'S PLAN TO GO HOME IN CURRENT CONDITION DISCUSSED. PT AND DAUGHTER HAVE ALREADY ASKED FOR [facility]ERR[facility] TO [facility], CM HAS SENT IT AND WAITING DETERMINATION. PLAN "B" WAS AGREED TO BE NURSING FACILITY IF NOT ACCEPTED TO [facility] AND THAT CM WOULD ATTEMPT TO FIND ONE THAT MAY DONATE REHAB SERVICES. PT'S DAUGHTER IS RESEARCHING [facility] [employer] FROM [facility] FOR REHAB SERVICES. CM WAITING ADMISSION DETERMINATION FROM [facility] IN [place]. Sandor Butt, CASE MANAGEMENT DCP- Discharge Planning Updated by [id number]: Sandor Butt on 05/25/19 2:[address] Patient Name: TROY HAYWOOD Encounter No: [id number] : 1955 Primary Insurance: MED[place]ID [place] Anticipated DC Date: Planned Disposition: Home HEALTH External Planned Provider: [facility], VISITING NURSES [facility] DCP follow-up note: CM MET WITH PT IN ROOM TO DISCUSS DISCHARGE NEEDS AND PLANNING. CM DISCUSSED AVAILABILITY OF HOME HEALTH, REHAB SERVICES AND MEDICAL EQUIPMENT. PT REFUSES ALF FACILITY PLACEMENT. PT STATES PLAN TO RETURN HOME. 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 PT WAS ABLE TO AMBULATE SMALL DISTANCES AND TRANSFER SELF FROM BED TO ELECTRIC WHEELCHAIR AT HOME. PT THINKS SHE IS GOING TO BE ABLE TO TRANSFER SELF TO GO BACK HOME. PT WANTS HOME HEALTH RESUMED TO GO HOME. CM EXPRESSED CONCERN OF PT'S CURRENT LEVEL OF FUNCTIONING AND RETURNING HOME. PT DENIES HAVING FRIENDS OR FAMILY TO ASSIST WITH HER CARE AT HOME BUT IS NOT GOING TO A CUSTODIAL. PT THINKS SHE WILL NEED AN AMBULANCE FOR TRANSPORT HOME HER ELECTRIC WHEELCHAIR IS THERE. CM EXPLAINED TO PT THAT SHE WILL NEED TO DEMONSTRATE WITH THERAPY THE ABILITY TO TRANSFER AND SIT IN CHAIR FOR DISCHARGE. PT STATED UNDRESTANDING. CHOICE FOR [facility] VISITING NURSES [facility] SIGNED. 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 PT REFUSED NURSING FACILITY PLACEMENT. PT WILL NEED TO DEMONSTRATE ABILITY TO TRANSFER AND SIT IN CHAIR FOR DISCHARGE SHE HAS ELECTRIC WHEELCHAIR AT HOME. CM TO ARRANGE HOME HEALTH RESUMPTION WITH [facility] VISITING NURSES [facility] FOR DISCHARGE HOME. CM TO CONTINUE TO FOLLOW AND ASSIST NEEDED. Sandor Butt, CASE MANAGEMENT DCP- Discharge Planning Updated by [id number]: Aleisha Monroe on 05/19/19 7:[address] Patient Name: TROY HAYWOOD Admission Status: ER Accout number: [id number] Admission Date: 05-14-2019 : 1955 Admission Diagnosis: Attending: FABIO PINEDA Current LOS: 5 Anticipated DC Date: Planned Disposition: Home or Self Care Primary Insurance: MEDICAID [place] Discharge Planning Comments: CM met with patient and daughter to complete initial dc planning assessment. Patient recently extubated earlier today. CM educated patient on the CM role and verbal consent given by patient to complete assessment. Patient lives at home with her two young grand-daughters where she is independent with her care. At discharge patient plans to return home and feels this is a safe discharge. CM discussed availability of home health, rehab services, and medical equipment. Patient has Home 02 and HH with unknown providers. CM will f/u with patient @ later date to see if she is able to give providers. Patient denied known discharge needs at this time. CM will continue to follow and will assist as needed with dc plans/needs. Drafter Detail: Aleisha Monroe DCPIA - Discharge Planning Initial Assessment Updated by [id number]: Sandor Butt on 05/28/19 9:36 am * How many steps to enter\\exit or inside your home? * PCP uncertain ? * Pharmacy [facility] * Preadmission Environment Home with Family * ADLs Independent * Other Equipment HOME 02, WALKER, SCOOTER, BSC, SC * List name and contact numbers for known caregivers / representatives who currently or will assist patient after discharge: CHEPE SUN - DAUGHTER- [phone] HOU[place]ON SALGADO, DTR - [phone] * Verbal permission to speak to the caregivers and representatives has been obtained from the patient. Yes * Community resources currently utilized Home Health * Please name any agencies selected above. [facility] * Additional services required to return to the preadmission environment? No * Can the patient safely return to the preadmission environment? Yes * Has this patient been hospitalized within the prior 30 days at any hospital? No Coverage Notice Reviewer: [id number] Josef Butt Notice Issued Date-Time: 05/25/2019 14:05 Notice Type: Patient Choice Letter Notice Delivered To: Patient Relationship to Patient: Gill Box Operator Name: Delivery Method: HAND - Hand Delivered Marry Days: Prior Verbal Notification: Recipient Understood Notice: Yes Recipient Signature: Yes Med Rec Note Co-signed by Attending: Coverage Notice Comment: [facility]- VISITING [facility] ([facility]) Reviewer: [id number] Josef Butt Notice Issued Date-Time: 05/31/2019 14:50 Notice Type: Patient Choice Letter Notice Delivered To: Patient Relationship to Patient: Gill Box Operator Name: Delivery Method: HAND - Hand Delivered Marry Days: Prior Verbal Notification: Recipient Understood Notice: Yes Recipient Signature: Yes Med Rec Note Co-signed by Attending: Coverage Notice Comment: [facility] Reviewer: [id number] Butt Notice Issued Date-Time: 06/09/2019 9:55 Notice Type: Patient Choice Letter Notice Delivered To: Patient Relationship to Patient: Gill Box Operator Name: Delivery Method: HAND - Hand Delivered Marry Days: Prior Verbal Notification: Recipient Understood Notice: Yes Recipient Signature: Yes Med Rec Note Co-signed by Attending: Coverage Notice Comment: [facility] OR ANY ACCEPTING ALF FACLITY Reviewer: NAYLA Butt Notice Issued Date-Time: 06/10/2019 16:25 Notice Type: Patient Choice Letter Notice Delivered To: Patient Relationship to Patient: Gill Box Operator Name: Delivery Method: HAND - Hand Delivered Marry Days: Prior Verbal Notification: Recipient Understood Notice: Yes Recipient Signature: Yes Med Rec Note Co-signed by Attending: Coverage Notice Comment: [facility] Reviewer: [id number] Butt Notice Issued Date-Time: 06/17/2019 13:55 Notice Type: Patient Choice Letter Notice Delivered To: Patient Relationship to Patient: Gill Box Operator Name: Delivery Method: HAND - Hand Delivered Marry Days: Prior Verbal Notification: Recipient Understood Notice: Yes Recipient Signature: Yes Med Rec Note Co-signed by Attending: Coverage Notice Comment: ANY ACCEPTING ALF FACILITY Reviewer: NAYLA Butt Notice Issued Date-Time: 06/18/2019 14:16 Notice Type: Patient Choice Letter Notice Delivered To: Patient Relationship to Patient: Gill Box Operator Name: Delivery Method: HAND - Hand Delivered Marry Days: Prior Verbal Notification: Recipient Understood Notice: Yes Recipient Signature: Yes Med Rec Note Co-signed by Attending: Coverage Notice Comment: [facility] IN [facility] PATIENT Last DP export: 06/22/19 11:15 Patient Name: TROY HAYWOOD Page [id number] at 1411 All edits/amendments must be made on the electronic document DICTATION DATE: 06/22/191410 DB2 DEVELOPER: MISHEL 06/22/191410 RPT#: [id number] DC DATE: STATUS: ADM IN [facility] [address] [place] [address] END OF REPORT
--- NOTE | 2019-06-22 15:03 | NUR ---
I CALLED HERBERT AT [facility] TO LET HER KNOW THAT IT WILL BE AFTER SUPPER BEFORE AMBULANCE CAN TRANSPORT. SHE SAID THAT SHE WILL LET THEM KNOW THAT IT WILL BE LATE BEFORE SHE GETS THERE.
--- NOTE | 2019-06-22 15:16 | NUR ---
Nutrition Follow-up: Eating well. Noted plans to d/c today. Diet: Cardiac, Mechanical Soft (finely chopped meats with gravy) PO intake: 75-100% Wt: 484# Last BM: 06/21 per chart Labs reviewed Meds noted: Lasix, MagOx, Colace -Continue current diet as tolerated. -RD following.
--- NOTE | 2019-06-22 15:24 | NUR ---
I CALLED [facility] TO SEE ABOUT TRANSPORT TO [facility]. HE STATES, " I AM ALREADY DOING ONE THERE FROM YOU FROM THE ER". STATES NO. I CALLED YIN [facility]ASTELUMFIN[facility] SPECIALIST AND MADE HER AWARE OF THIS.
--- NOTE | 2019-06-22 16:04 | NUR ---
OT NOTE: PT COMPLETED UB HYGIENE TASKS WITH MIN AFaustina THANK YOU,BLADIMIR MANCERA
--- NOTE | 2019-06-22 18:09 | NUR ---
MEDICATED FOR BACK PAIN PRIOR TO PATIENT LEAVING VIA [employer]. NO DISTRESS.
--- NOTE | 2019-06-22 19:05 | NUR ---
REPORT RECEIVED, WILL CONTINUE POC. PATIENT IS AAOX4, NO S/S OF DISTRESS OBSERVED, RR EVEN AND UNLABORED ON 3L O2 VIA NC. PATIENT DENIES NEEDS AT THIS TIME. AWAITING [facility] FOR TRANSFER. CL IN REACH, BED LOCKED AND LOWERED. WILL CTM.
--- NOTE | 2019-06-22 20:30 | NUR ---
[facility] HERE TO TRANSFER PATIENT TO NURSING FACILITY. DISCHARGE PAPERS SIGNED. TRANSFER PACKET GIVEN TO [facility]. ASSISTED WITH TRANFERRING PATIENT TO [facility] Catalan ASSISTED. PATIENT D/C'D.
== END 2019-06-22 20:37 | DRG 981 ==
LOC: D.ER 15:43 → D.M2 16:22 → D.CVICU 16:22 → D.M2 05-23 11:11
PROVIDERS: Family Medicine; Family Medicine Adult Medicine; Internal Medicine; Internal Medicine Interventional Cardiology; Internal Medicine Nephrology; Internal Medicine Pulmonary Disease; ADMIT Emergency Medicine; ATTEND Emergency Medicine
PROC: 0BH17EZ Insertion of Endotracheal Airway into Trachea, Via Natural or Artificial Opening (ICD-10-PCS; principal; 2019-05-14)
PROC: 5A1955Z Respiratory Ventilation, Greater than 96 Consecutive Hours (ICD-10-PCS; 2019-05-14)
PROC: 05H533Z Insertion of Infusion Device into Right Subclavian Vein, Percutaneous Approach (ICD-10-PCS; 2019-05-16)
PROC: B2111ZZ Fluoroscopy of Multiple Coronary Arteries using Low Osmolar Contrast (ICD-10-PCS; 2019-05-18)
PROC: B2151ZZ Fluoroscopy of Left Heart using Low Osmolar Contrast (ICD-10-PCS; 2019-05-18)
PROC: 4A023N7 Measurement of Cardiac Sampling and Pressure, Left Heart, Percutaneous Approach (ICD-10-PCS; 2019-05-18)
PROC: 027135Z Dilation of Coronary Artery, Two Arteries with Two Drug-eluting Intraluminal Devices, Percutaneous Approach (ICD-10-PCS; 2019-05-18 12:00)
PROC: 5A09557 Assistance with Respiratory Ventilation, Greater than 96 Consecutive Hours, Continuous Positive Airway Pressure (ICD-10-PCS; 2019-05-19)
DX: J96.22 Acute and chronic respiratory failure with hypercapnia (principal); I21.4 Non-ST elevation (NSTEMI) myocardial infarction; I50.33 Acute on chronic diastolic (congestive) heart failure; N17.9 Acute kidney failure, unspecified; I13.0 Hypertensive heart and chronic kidney disease with heart failure and stage 1 through stage 4 chronic kidney disease, or unspecified chronic kidney disease; Z68.45 Body mass index [BMI] 70 or greater, adult; F17.203 Nicotine dependence unspecified, with withdrawal; N39.0 Urinary tract infection, site not specified; D62 Acute posthemorrhagic anemia; J81.1 Chronic pulmonary edema; J44.1 Chronic obstructive pulmonary disease with (acute) exacerbation; J96.01 Acute respiratory failure with hypoxia; E66.01 Morbid (severe) obesity due to excess calories; N18.3 Chronic kidney disease, stage 3 (moderate); G47.33 Obstructive sleep apnea (adult) (pediatric); K21.9 Gastro-esophageal reflux disease without esophagitis; E03.9 Hypothyroidism, unspecified; Z79.01 Long term (current) use of anticoagulants; S22.49XD Multiple fractures of ribs, unspecified side, subsequent encounter for fracture with routine healing; W19.XXXD Unspecified fall, subsequent encounter; D50.9 Iron deficiency anemia, unspecified; I95.9 Hypotension, unspecified; E87.5 Hyperkalemia; M79.81 Nontraumatic hematoma of soft tissue; R53.81 Other malaise; E78.5 Hyperlipidemia, unspecified